=== PATIENT | female | born 1985 | race Caucasian/White ===

== ENCOUNTER 2024-08-26 12:00 | Outpatient (OUT) | payer OTHER, SELFPAY | END 2024-08-26 12:01 | disposition home or self-care (01) | LOC: SLEEP 08-27 12:43 | PROVIDERS: PCP Nurse Practitioner; Visit Provider Nurse Practitioner | DX: G47.33 Obstructive sleep apnea (adult) (pediatric) (principal) | CPT/HCPCS: 95806 ==

== ENCOUNTER 2024-09-09 19:52 | Outpatient (OUT) | payer OTHER, SELFPAY ==
--- OUTSIDE RECORDS SUMMARY | 2024-09-09 20:01 | XMS_ITS | CCD ---
Author Organization [facility] Care Team Providers Care Membership Sales Advisor Name Role Phone DONNY SHIPMAN JUAN Unavailable Unavai lable BENJAMIN SU Unavailable Unavailable BELDON, JJ M Unavailable Unavailable EHRENBERG BUCHNER, JUAN Unavailable Unavai lable BENJAMIN, SU Unavailable Unavailable BELDON, JJ M Unavailable Unavailable EHRDILLON TYLERNER, JUAN Unavailable Unavai lable SIMON REYES Unavailable Unavailable BELDON, JJ M Unavailable Unavailable EHRENBERG BUCHNER, JUAN Unavailable Unavai lable BELDON, JJ M Unavailable Unavailable SIMON REYES Unavailable Unavailable Emma Sharma Primary Care Physician [phone] [facility] [place] Primary Care Unavailable ROGER, DR CLARK Consulting Unavailable ROGER, DR CLARK Attending Unavailable ROGER, DR CLARK Admitting Unavailable Guerda Metcalf MD Primary Care Provider Theo Candelaria Vagesh Unavailable Jj Dyer CNP Unavailable Guerda Metcalf MD Primary Care Provider Eugenie Candelariatan Vagesh Unavailable Manisha ALDANA Jj M Unavailable Guerda Metcalf MD Primary Care Provider Theo Candelaria Vagesh Unavailable Linda Taylor Primary Care Physician Neva Pearson Attending Unavailable Neva Pearson Admitting Unavailable Neva Pearson Admitting Unavailable Neva Pearson Attending Unavailable Guerda Metcalf MD Primary Care Provider PEECHAKARA V, SEENIA Referring Unavailable GUERDA METCALF Primary Care Unavailable PEECHAKARA V, SEENIA Attending Unavailable GUERDA METCALF Primary Care Unavailable PEECHAKARA V, SEENIA Attending Unavailable PEECHAKARA V, SEENIA Referring Unavailable PEECHAKARA V, SEENIA Referring Unavailable GUERDA METCALF Primary Care Unavailable GUERDA METCALF Primary Care Unavailable PEECHAKARA V, SEENIA Attending Unavailable PEECHAKARA V, SEENIA Referring Unavailable GUERDA METCALF Primary Care Unavailable Dyan Ernandez Admitting Unavailabl e Dyan Ernandez Attending Unavailabl e DO Neva Pearson Attending Unavaila ble DO Neva Pearson Admitting Unavaila ble Michel, DO Neva Woodward Admitting Unavaila ble Michel, DO Neva Woodward Attending Unavaila ble Arturo Mon Admitting Unavailable Arturo Mon Attending Unavailable Arturo Mon Referring Unavailable Neva Pearson Attending Unavailable Neva Pearson Admitting Unavailable Michel, DO Neva Woodward Attending Unavaila DO Neva Solares Admitting Unavaila ble Neva Pearson Attending Unavailable Neva Pearson Admitting Unavailable Dyan Ernandez Attending Unavailabl e Dyan Ernandez Admitting Unavailabl e Dyan Ernandez Attending Unavailabl e Linda Taylor Attending Unavailable Linda Taylor Attending Unavailable Linda Taylor Attending Unavailable MD Dyan Ernandez Attending Unavail able MD Dyan Ernandez Admitting Unavail able MD Dyan Ernandez Referring Unavail able DO Neva Pearson Attending Unavaila ble DO Neva Pearson Admitting Unavaila MD Dyan Sierra Attending Unavail able MD Dyan Ernandez Admitting Unavail able DO Neva Pearson Attending Unavaila ble NatDO Neva ma Admitting Unavaila ble Domo Yap Attending Unavailable Linda Taylor Attending Unavailable Linda Taylor Admitting Unavailable Rocco Connors Attending Unavailable MD Dyan Ernandez Attending Unavail able MD Dyan Ernandez Admitting Unavail able DO Neva Pearson Admitting Unavaila ble DO Neva Pearson Attending Unavaila ZELALEM Conrad Referring Unavaila ble Smithn, Arturo D Attending Unavailable Cat Gottlieb Attending Unavailable MD Dyan Ernandez Attending Unavail able Linda Taylor Referring Unavailable MD Dyan Ernandez Attending Unavail able MD Dyan Ernandez Referring Unavail able MD Dyan Ernandez Attending Unavail able ZELALEM SORIA Referring Unavaila ble Kirnus, Arturo D Attending Unavailable Kirnus, Arturo D Admitting Unavailable Kirnus, Arturo D Referring Unavailable Kirnus, Arturo D Attending Unavailable Kirnus, Arturo D Consulting Unavailable Kirnus, Arturo D Consulting Unavailable Kirnus, Arturo D Consulting Unavailable MD Dyan Ernandez Attending Unavail able MD Dyan Ernandez Admitting Unavail able MD Dyan Ernandez Referring Unavail able DO Neva Pearson Attending Unavaila DO Neva Solares Admitting Unavaila ble Dyan Ernandez Attending UnavailDO Anton Naranjo Attending Unavailable [place] BAI, Dario Dorsey Primary Care Provider Unavailable Primary Care Provider UnavailLinda Juarez Primary Care Physician [phone] Cat Gottlieb Attending Unavailable Dyan Ernandez Attending Unavailabl e Neva Pearson. Attending Unavailable Neva Pearson. Admitting Unavailable Neva Pearson. Attending Unavailable Neva Pearson. Admitting Unavailable DO Ricky Hall. Attending Unavailable DO Anton Reinoso Attending Unavailable Al-Marwarner, Dyan Cid Attending Unavailabl e Al-Marrawi, Dyan Yajulio Attending Unavailabl e Al-Marrawi, Dyan Yaser Attending Unavailabl e Cat Gottlieb Attending Unavailable Markus Elkins Attending Unavailable Brittni, Markus Attending Unavailable Kayla Goldstein RN Unavailable Unavailable CHAMPAGNEGHISLAINE GUILLEN Attending Unavailable Al-Marrawi, Dyan Yajulio Attending Unavailabl e Al-Marrawi, Bind Yaser Admitting Unavailabl e Al-Marrawi, Dyan Yaser Attending Unavailabl e CHAMPAGNE, GHISLAINE Admitting Unavailable CHAMPAGNEGHISLAINE GUILLEN Attending Unavailable Al-Marrawi, Dyan Yaser Admitting Unavailabl e Al-Marrawi, Dyan Yaser Attending Unavailabl e Kylah Rivas. Attending Unavailable Kylah Rivas. Attending Unavailable SAY SCHMID Admitting Unavailable KYLAH RIVAS Referring Unavailable COLIN METZ Attending Unavailable PRIORRONDA Attending Unavailable TAL ROBLES Admitting Unavailable TAL ROBLES Attending Unavailable PRIOR, RONDA Rico Attending Unavailable RUBÉN NÚÑEZ Attending Unavailable SHANTELL MI Referring Unavailable RUBÉN NÚÑEZ Attending Unavailable RUBÉN NÚÑEZ Referring Unavailable VONDA CORREA Referring Unavailable VONDA CORREA Attending Unavailable NEVA PEARSON Attending Unavailable JOSSELYN SORIA Attending Unavailable JOSSELYN SORIA Attending Unavailable NEVA PEARSON Attending Unavailable NEVA PEARSON Attending Unavailable NEVA PEARSON Attending Unavailable NEVA PEARSON Attending Unavailable JOSSELYN SORIA Attending Unavailable NEVA PEARSON Attending Unavailable NATNEVA MA Attending Unavailable VONDA CORREA Attending Unavailable IRAIDA BLANCO Referring Unavailable ALLISON VONDA Dago Referring Unavailable JOSSELYN SORIA Attending Unavailable Iraida Blanco Attending Unavailable Iraida Blanco Attending Unavailable Iraida Blanco Attending Unavailable Allergies Allergy Classification Reported Allergen(s) Allergy Type Date of Onset Reaction(s) Facility Nalbuphine (1 source) Nalbuphine; Translations: [nalbuphine] Drug Allergy Hallucinations (finding) [facility] (11 sources) nalbuphine; Translations: [NALBUPHINE HCL] Drug Allergy 8 Swelling, Other: See Comments [facility] (20 sources) Nalbuphine; Translations: [nalbuphine] Drug Allergy 5 Hallucinations (finding), Hallucinations, Swelling [facility] (20 sources) Alcohol; Translations: [Alcohol] Allergy to substance Anaphylaxis (disorder) [facility] Medications Current Medications Medication Drug Class(es) Dates Sig (Normalized) Sig (Original) 0.5 ML tirzepatide 5 MG/ML Auto-Injector [Mounjaro] (5 sources) Start: 08-08-2023 inject 2.5 mg by subcutaneous injection every week Mounjaro 2.5 mg/0.5 mL subcutaneous solution 2.5 mg, SubCutaneous, qWeek, # 4 EA, Refills(s) 1, Pharmacy: [facility]/pharmacy #[id number], 158, cm, 08/08/23 9:06:00 EST, Height/Length Dosing, 98.9, kg, 08/08/23 9:06:00 EST, Weight Dosing Start Date: 08/08/23 Status: Ordered acetaminophen 325 mg oral tablet (13 sources) Start: 05-27-2024 take 3 tablets by mouth every six hours acetaminophen (Tylenol) 325 mg tablet Indications: state ([facility]) Take 3 tablets (975 mg) by mouth every 6 hours. 90 tablet 3 05/27/2024 Active Start: 05-25-2024 take 1 tablet by debby th every six hours 975 mg, oral, Every 6 hours, First dose on 05/25/24 at 0945, , Give with Ibuprofen, If ordered PRN for pain, nurse is permitted to administer this medication for higher pain scores based on patient preference? Yes Start: 05-24-2024 End: 05-24-2024 take 975 mg by mouth once as needed for pain 975 mg, oral, Once, On 05/24/24 at 1430, For 1 dose, If ordered PRN for pain, nurse is permitted to administer this medication for higher pain scores based on patient preference? Yes Start: 04-18-2024 End: 04-18-2024 take 650 mg by mouth once as needed for pain 650 mg, oral, Once, On 04/18/24 at 2000, For 1 dose, If ordered PRN for pain, nurse is permitted to administer this medication for higher pain scores based on patient preference? Yes Start: 04-18-2024 End: 04-18-2024 take 975 mg by mouth once as needed for pain 975 mg, oral, Once, On 04/18/24 at 0745, For 1 dose, If ordered PRN for pain, nurse is permitted to administer this medication for higher pain scores based on patient preference? Yes 4 ml adenosine 3 mg/ml injection (2 sources) Adenosine Receptor Agonist Start: 05-25-2024 take 6 mg intravenously once as needed 6 mg, intravenous, Once as needed, SVT, Starting on Sat05/25/24 at 1350, For 1 dose, Rapid IV bolus over 1-2 seconds at a peripheral IV site as close as possible to trunk. Follow with a rapid 20 mL normal saline IV flush. DO NOT ADMINISTER UNLESS DIRECTLY INSTRUCTED TO BY PROVIDER Start: 05-25-2024 take 12 mg intraveno usly once as needed 12 mg, intravenous, Once as needed, PRN SVT if 6mg dose does not break in 2 minutes, Starting on Sat05/25/24 at 1349, For 1 dose, Rapid IV bolus over 1-2 seconds at a peripheral IV site as close as possible to trunk. Follow with a rapid 20 mL normal saline IV flush. DO NOT ADMINISTER UNLESS DIRECTLY INSTRUCTED TO BY PROVIDER [id number] 200 actuat albuterol 0.09 mg/actuat metered dose inhaler (20 sources) beta2-Adrenergic Agonist take 2 puff(s) by inhalation every four hours albuterol HFA 90 mcg/act inhaler INHALE 2 PUFFS INTO THE LUNGS EVERY 4 HOURS Active Albuterol (Eqv-ProAir HFA) 90 mcg/inh inhalation aerosol (20 sources) Start: 05-12-20 take 2 puff(s) by inhalation every four hours Albuterol (Eqv-ProAir HFA) 90 mcg/inh inhalation aerosol 2 puff(s), Inhalation, q4hr, 18 gm, Refill(s) 0, [facility]/pharmacy #[id number], 158, cm, 05/12/23 11:37:00 EDT, Height/Length Dosing, 101.2, kg, 05/12/23 11:37:00 EDT, Weight Dosing Start Date: 05/12/23 Status: Ordered Start: 06-19-2021 take 1 dose by inhal ation every six hours Albuterol (Eqv-ProAir HFA) 90 mcg/inh inhalation aerosol 2 puff(s), Inhalation, q6hr, 1 EA, Refill(s) 3, [facility]/pharmacy #[id number], 157, cm, 02/15/21 11:09:00 EDT, Height/Length Dosing, 99.8, kg, 02/15/21 11:09:00 EDT, Weight Dosing Start Date: 06/19/21 Status: Ordered aluminum hydroxide 40 mg/ml / magnesium hydroxide 40 mg/ml / simethicone 4 mg/ml oral suspension (1 source) Start: 04-19-2024 take 10 mL by mouth four times daily as needed for gastroesophageal reflux disease 10 mL, oral, 4 times daily PRN, indigestion, heartburn, Starting on 04/19/24 at 210 amLODIPine 5 mg / hydroCHLOROthiazide 12.5 mg / valsartan 160 mg oral tablet (5 sources) Thiazide Diuretic, Dihydropyridine Calcium Channel Jaimie, Angiotensin 2 Receptor Jaimie amLODIPine-Gladys sartan-HCTZ 5-160-12.5 MG tablet 1 (one) time each day at the same time Active amLODIPine 5 mg / valsartan 160 mg oral tablet (16 sources) Dihydropyridine Calcium Channel Jaimie, Angiotensin 2 Receptor Jaimie Start: 06-19-2024 amlodipine-gladys sartan 5 mg-160 mg oral tablet Refill(s) 0 Start Date: 06/19/24 Status: Ordered Start: 06-03-2024 End: 06-03-2025 take 1 tablet by mouth once daily amlodipine-valsartan (Exforge) 5-160 mg tablet Indications: Chronic hypertension Take 1 tablet by mouth once daily. 90 tablet 3 06/03/2024 06/03/2025 Active amoxicillin 875 mg / clavulanate 125 mg oral tablet (2 sources) Penicillin-class Antibacterial Start: 09-14-2022 End: 09-21-2022 take 1 tablet by mouth every twelve hours Augmentin 875 mg oral tablet = 1 tab(s), Oral, q12hr, X 7 day(s), # 14 tab(s), Refills(s) 0, Pharmacy: [facility]/pharmacy #[id number], 157, cm, 09/14/22 13:45:00 EST, Height/Length Dosing, 99.8, kg, 09/14/22 13:45:00 EST, Weight Dosing Start Date: 09/14/22 Stop Date: 09/21/22 Status: Ordered Start: 01-11-2022 End: 01-18-2022 Augmentin 875 mg-125 mg Tab 1 tab(s), Oral, q12hr for 7 day(s), 14 tab(s), Refill(s) 0, [facility]/pharmacy #[id number], 157, cm, 11/30/21 11:47:00 EDT, Height/Length Dosing, 101.1, kg, 11/30/21 11:47:00 EDT, Weight Dosing Start Date: 01/11/22 Stop Date: 01/18/22 Status: Ordered 24 hr amphetamine aspartate 2.5 mg / amphetamine sulfate 2.5 mg / dextroamphetamine saccharate 2.5 mg / dextroamphetamine sulfate 2.5 mg extended release oral capsule (5 sources) Central Nervous System Stimulant Start: 07-08-2024 End: 08-31-2024 Adderall XR 10 MG 24 hr capsule 1 (one) time each day at the same time 07/08/2024 08/31/2024 Discontinued (Therapy completed) benzocaine 200 mg/ml / menthol 5 mg/ml topical spray (1 source) Standardized Chemical Allergen Start: 05-25-2024 benzonatate 100 mg oral capsule (1 source) Non-narcotic Antitussive Start: 04-19-2024 take 100 mg by mouth three times daily as needed for cough 100 mg, oral, 3 times daily PRN, cough, Starting on 04/19/24 at 2126, Do not crush or chew. bisacodyl 10 mg rectal suppository (2 sources) Stimulant Laxative Start: 05-25-2024 take 10 mg rectal route every twenty-four hours as needed Start: 04-17-2024 take 10 mg rectal route every twenty-four hours as needed Brompheniramine / Codeine (2 sources) Opioid Agonist Start: 05-29-2023 take 5 mL by mouth every four hours for cough and congestion brompheniramine-codeine 2 mg-10 mg/5 mL oral syrup 5 mL, Oral, q4hr for cough and congestion, 100 mL, Refill(s) 0 Start Date: 05/29/23 Status: Ordered brompheniramine maleate 0.4 mg/ml / dextromethorphan hydrobromide 2 mg/ml / pseudoephedrine hydrochloride 6 mg/ml oral solution (3 sources) alpha-Adrenergic Agonist, Uncompetitive Y-qgiwcq-D-aspar gruber Receptor Antagonist, Sigma-1 Agonist Start: 05-23-2022 take 10 mL by mouth four times daily for cough and congestion Bromfed DM oral syrup 10 mL, Oral, QID for cough and congestion, 200 mL, Refill(s) 0, [facility]/pharmacy #[id number], 157, cm, 11/30/21 11:47:00 EDT, Height/Length Dosing, 101.1, kg, 11/30/21 11:47:00 EDT, Weight Dosing Start Date: 05/23/22 Status: Ordered Start: 01-11-2022 take 10 mL by mouth four times daily for cough and congestion Bromfed DM oral syrup 10 mL, Oral, QID for cough and congestion, 200 mL, Refill(s) 0, [facility]/pharmacy #[id number], 157, cm, 11/30/21 11:47:00 EDT, Height/Length Dosing, 101.1, kg, 11/30/21 11:47:00 EDT, Weight Dosing Start Date: 01/11/22 Status: Ordered calcium carbonate 500 mg chewable tablet (1 source) Start: 05-26-2024 500 mg, oral, 2 times daily, First dose on Sat05/26/24 at 1830, Each 500 mg calcium carbonate tablet = 200 mg of elemental calcium. calcium chloride 0.0014 meq/ml / potassium chloride 0.004 meq/ml / sodium chloride 0.103 meq/ml / sodium lactate 0.028 meq/ml injectable solution (1 source) Start: 09-28-2024 take 125 mL intravenously every hour 125 mL/hr, intravenous, Continuous, Starting on 04/18/24 at 0015 1 ml carboprost 0.25 mg/ml injection (2 sources) Prostaglandin Analog Start: 05-24-2024 cariprazine 1.5 mg oral capsule (6 sources) Atypical Antipsychotic Start: 05-12-2023 Vraylar 1.5 mg oral capsule Refills(s) 0 Start Date: 05/12/23 Status: Ordered cephalexin 500 mg oral capsule (3 sources) Cephalosporin Antibacterial Start: 06-28-2024 End: 07-05-2024 take 1 capsule by mouth every six hours Keflex 500 mg Cap 500 mg = 1 cap(s), Oral, q6hr, X 7 day(s), # 28 cap(s), Refills(s) 0, Pharmacy: [facility]/pharmacy #[id number], 157, cm, 06/28/24 11:04:00 EST, Height/Length Dosing, 99.5, kg, 06/28/24 11:04:00 EST, Weight Dosing Start Date: 06/28/24 Stop Date: 07/05/24 Status: Ordered Start: 05-30-2024 End: 06-09-2024 take 1 capsule by mouth four times daily Cephalexin 500 mg capsule Active 500 MG PO Four times daily June 03, 2024 12:00am cholecalciferol 1.25 mg oral capsule (20 sources) Vitamin D Start: 05-30-2023 cholecalcifero l 50,000 intl units oral capsule 1,250 mcg = 1 cap(s), Oral, q7day, # 12 cap(s), Refills(s) 1, Pharmacy: [facility]/pharmacy #[id number], 158, cm, 05/29/23 8:45:00 EST, Height/Length Dosing, 100.2, kg, 05/29/23 8:45:00 EST, Weight Dosing Start Date: 05/30/23 Status: Ordered Start: 05-30-2023 cholecalcifero l 50,000 intl units oral capsule 1,250 mcg = 1 cap(s), Oral, q7day, # 12 cap(s), Refills(s) 1, Pharmacy: [facility]/pharmacy #[id number], 158, cm, 05/29/23 8:45:00 EST, Height/Length Dosing, 100.2, kg, 05/29/23 8:45:00 EST, Weight Dosing Start Date: 05/30/23 Status: Ordered diphenhydrAMINE (BENADryl) injection 25 mg (1 source) Start: 05-25-2024 take 25 mg intravenously every six hours as needed diphenhydrAMINE (BENADryl) injection 25 mg doxycycline hyclate 100 mg oral capsule (7 sources) Tetracycline-cl ass Drug Start: 05-29-2023 take 1 capsule by mouth twice daily doxycycline hyclate 100 mg Cap 100 mg = 1 cap(s), Oral, BID, # 20 cap(s), Refills(s) 0, Pharmacy: [facility]/pharmacy #[id number], 158, cm, 05/29/23 8:45:00 EST, Height/Length Dosing, 100.2, kg, 05/29/23 8:45:00 EST, Weight Dosing Start Date: 05/29/23 Status: Ordered doxylamine succinate 25 mg oral tablet (5 sources) doxylamine (Unis om, doxylamine,) 25 mg tablet Take 1 tablet (25 mg) by mouth as needed at bedtime for sleep. Active 0.6 ml enoxaparin sodium 100 mg/ml prefilled syringe (1 source) Low Molecular Weight Heparin Start: 05-26-2024 inject 60 mg by subcutaneous injection every twenty-four hours 60 mg, subcutaneous, Every 24 hours, First dose on Sat05/26/24 at 0930, , Wait 24 hours after neuraxial catheter placement AND 4 hours after neuraxial catheter removal. ethinyl estradiol 0.035 mg / norgestimate 0.25 mg oral tablet (9 sources) Progestin, Estrogen Start: 07-07-2024 End: 07-07-2025 take 1 tablet by mouth once daily norgestimate-ethiny l estradiol (Sprintec 28) 0.25-35 MG-MCG tablet Indications: Oral contraception initiation Take 1 tablet by mouth Daily 28 tablet 5 07/07/2024 08/31/2024 Discontinued (Therapy completed) famotidine 20 mg oral tablet (2 sources) Histamine-2 Receptor Antagonist Start: 05-26-2024 take 20 mg by mouth twice daily 20 mg, oral, 2 times daily, First dose on Sat05/26/24 at 1830 Start: 05-25-2024 End: 05-25-2024 20 mg, intravenous, Administ er over 2 Minutes, Once, On 05/25/24 at 0300, For 1 dose ferrous sulfate 325 mg delayed release oral tablet (20 sources) Start: 01-21-2024 take 1 tablet by mouth once in the morning ferrous sulfate 325 (65 Fe) MG EC tablet Indications: Anemia during in second trimester , Antepartum anemia Take 1 tablet (325 mg) by mouth in the morning and 1 tablet (325 mg) before bedtime. Do not crush, chew, or split.. 60 tablet 5 01/21/2024 Active take 1 tablet by mouth once vasiliy y ferrous sulfate, 325 mg ferrous sulfate, tablet Take 1 tablet (325 mg) by mouth once daily. Active fluticasone propionate 0.05 mg/actuat metered dose nasal spray (20 sources) Corticosteroid Start: 11-30-2021 fluticasone 0. 05 mg/inh Nasal [place] 1 spray(s), Nasal, Daily Allergy symptoms, Refill(s) 0 Start Date: 11/30/21 Status: Ordered take 1 spray(s) nasal route once daily fluticasone (Flonase) 50 MCG/ACT nasal spray SPRAY 1 SPRAY INTO EACH NOSTRIL EVERY DAY Active fluticasone 0.05 mg/inh Nasal [place] (20 sources) Start: 11-30-2021 fluticasone 0. 05 mg/inh Nasal [place] 1 spray(s), Nasal, Daily Allergy symptoms, Refill(s) 0 Start Date: 11/30/21 Status: Ordered 1 ml hydrALAZINE hydrochloride 20 mg/ml injection (3 sources) Arteriolar Vasodilator Start: 05-24-2024 Start: 04-17-2024 ibuprofen 600 mg oral tablet (13 sources) Nonsteroidal Anti-inflammatory Drug Start: 05-25-2024 take 1 tablet by mouth every six hours ibuprofen 600 mg tablet Indications: state ([facility]) Take 1 tablet (600 mg) by mouth every 6 hours. 90 tablet 3 05/27/2024 Active Start: 11-18-2019 End: 02-10-2024 take 1 tablet by mouth three times daily ibuprofen (MOTRIN) 600 mg tablet Take by mouth. TAKE 1 TABLET BY MOUTH 3 TIMES A DAY FOR 10 DAYS 0 11/18/2019 02/10/2024 Discontinued Comment on above: Take by mouth. TAKE 1 TABLET BY MOUTH 3 TIMES A DAY FOR 10 DAYS labetalol hydrochloride 100 mg oral tablet (20 sources) beta-Adrenergic Jaimie Start: 06-03-2024 take 2 tablets by mouth twice daily Labetalol 100 mg tablet Active 200 MG PO Twice daily June 03, 2024 12:00am Start: 05-24-2024 Start: 05-19-2024 End: 05-19-2025 labetalol 100 mg Tab Refills (s) 0 Start Date: 06/19/24 Status: Ordered Start: 04-17-2024 take 1 tablet by debby th in the morning labetalol (Normodyne) 200 MG tablet Take 200 mg by mouth in the morning and 200 mg before bedtime. Active lamoTRIgine 150 mg oral tablet (20 sources) Mood Stabilizer, Anti-epileptic Agent Start: 06-03-2024 take 1 tablet by mouth twice daily Lamotrigine (Lamictal) 150 mg tablet Active 150 MG PO Twice daily June 03, 2024 12:00am Start: 05-24-2024 take 300 mg by mouth once vasiliy y 300 mg, oral, Nightly, First dose on 05/24/24 at 2100 Start: 04-18-2024 take 300 mg by mouth once vasiliy y 300 mg, oral, Nightly, First dose (after last modification) on 04/18/24 at 2100 Start: 12-24-2019 take 2 tablets by mo uth once daily lamotrigine 150 mg Tab 300 mg = 2 tab(s), Oral, Daily, # 60 tab(s), Refills(s) 5, Pharmacy: [facility]/pharmacy #[id number], 157, cm, 03/06/20 16:46:00 EDT, Height/Length Dosing, 95.2, kg, 03/06/20 16:46:00 EDT, Weight Dosing Start Date: 06/21/20 Status: Ordered Start: 08-21-2016 lamoTRIgine (L aMICtal) 150 MG tablet 1 (one) time each day at the same time 08/21/2016 Active Comment on above: Take 300 mg by mouth once daily. lanolin 1000 mg/ml topical cream (1 source) Start: 05-25-2024 lidocaine 0.04 mg/mg medicat ed patch (3 sources) Antiarrhythmic, Amide Local Anesthetic Start: 05-25-2024 Start: 05-24-2024 Start: 04-17-2024 loperamide hydrochloride 2 mg oral capsule (2 sources) Opioid Agonist Start: 05-24-2024 lurasidone hydrochloride 40 mg oral tablet (20 sources) Atypical Antipsychotic Start: 07-08-2024 take 1 tablet by mouth once daily at mealtime lurasidone (Latuda) 40 MG tablet TAKE 1 TABLET BY MOUTH EVERY DAY IN THE EVENING WITH FOOD 07/08/2024 Active Start: 05-29-2023 Latuda 120 mg oral tablet Managed by Nury Zaman, Refills(s) 0 Start Date: 05/29/23 Status: Ordered Start: 01-05-2020 End: 02-10-2024 LATUDA 80 mg tablet Take 80 mg by mouth. 0 01/05/2020 02/10/2024 Discontinued Comment on above: Take 80 mg by mouth. M- Plus oral tablet (20 sources) Start: 03-30-2024 M-Jacinta Plus oral tablet Refill(s) 0 Start Date: 03/30/24 Status: Ordered magnesium hydroxide 80 mg/ml oral suspension (2 sources) Start: 05-25-2024 Start: 04-17-2024 magnesium oxide 400 mg oral tablet (1 source) Start: 05-27-2024 take 400 mg by mouth once daily 400 mg, oral, Daily, First dose on Sat05/27/24 at 1930 24 hr metFORMIN hydrochloride 500 mg extended release oral tablet (20 sources) Biguanide Start: 04-18-2024 take 1000 mg by mouth once daily at dinner 1,000 mg, oral, Daily with evening meal, First dose on Sat04/18/24 at 1700, Do not crush, chew, or split. Start: 03-23-2024 take 1 tablet by debby th every twelve hours metFORMIN (Glucophage) 1,000 mg tablet Take 1 tablet (1,000 mg) by mouth every 12 hours. 03/23/2024 Active Start: 12-06-2019 End: 03-23-2024 take 1 tablet by mouth twice daily metformin 1000 mg Tab 1,000 mg = 1 tab(s), Oral, BID, # 180 tab(s), Refills(s) 3, Pharmacy: [facility]/pharmacy #[id number], 157, cm, 03/06/20 16:46:00 EDT, Height/Length Dosing, 85.6, kg, 08/10/20 10:41:00 EST, Weight Dosing Start Date: 08/10/20 Status: Ordered Start: 08-21-2017 metFORMIN (Glu cophage) 1000 MG tablet every 12 (twelve) hours 08/21/2017 Active End: 05-19-2024 take 1 tablet by mouth once daily metFORMIN, MOD, (Glumetza) 1,000 mg 24 hr tablet Take 1 tablet (1,000 mg) by mouth once daily. Do not crush, chew, or split. 05/19/2024 Discontinued (Dose adjustment) Comment on above: Take 1,000 mg by debby th twice daily. Take 1 tablet by debby th twice daily. 1 ml methylergonovine maleat e 0.2 mg/ml injection (2 sources) Ergot Derivative Start: 05-24-2024 methylPREDNISolone 4 mg oral tablet (1 source) Corticosteroid Start: 01-11-2022 End: 01-17-2022 Medrol 4 mg Tab = 1 packet(s), Oral, As Directed, as directed on package labeling, X 6 day(s), # 21 tab(s), Refills(s) 0, Pharmacy: [facility]/pharmacy #[id number], 157, cm, 11/30/21 11:47:00 EDT, Height/Length Dosing, 101.1, kg, 11/30/21 11:47:00 EDT, Weight Dosing Start Date: 01/11/22 Stop Date: 01/17/22 Status: Ordered 24 hr metoprolol succinate 5 0 mg extended release oral tablet (20 sources) beta-Adrenergic Jaimie Start: 05-11-2024 metoprolol succinate 50 mg ER Tab BID, Refills(s) 0 Start Date: 05/11/24 Status: Ordered Start: 05-05-2024 End: 07-07-2024 take 2 tablets by mouth every twelve hours metoprolol tartrate (Lopressor) 25 mg tablet Indications: SVT (supraventricular tachycardia) (CMS-HCC) Take 2 tablets (50 mg) by mouth every 12 hours. 30 tablet 3 05/05/2024 05/19/2024 Discontinued (Therapy completed) Start: 04-19-2024 End: 06-19-2024 take 1 tablet by mouth every twelve hours metoprolol tartrate (Lopressor) 25 mg tablet Indications: SVT (supraventricular tachycardia) ([facility]-H[facility]) Take 1 tablet (25 mg) by mouth every 12 hours. 30 tablet 3 04/20/2024 06/19/2024 Active Start: 04-18-2024 End: 04-18-2024 take 25 mg by mouth every twenty-four hours 25 mg, oral, Every 24 hours, First dose (after last modification) on 04/18/24 at 0600, Do not crush or chew. miSOPROStol 0.2 mg oral tablet (2 sources) Prostaglandin E1 Analog Start: 05-24-2024 naproxen 500 mg oral tablet (1 source) Nonsteroidal Anti-inflammatory Drug Start: 06-28-2024 take 1 tablet by mouth twice daily as needed for pain Naprosyn 500 mg Tab 500 mg = 1 tab(s), Oral, BID, PRN for pain, # 20 tab(s), Refills(s) 0, Pharmacy: [facility]/pharmacy #[id number], 157, cm, 06/28/24 11:04:00 EST, Height/Length Dosing, 99.5, kg, 06/28/24 11:04:00 EST, Weight Dosing Start Date: 06/28/24 Status: Ordered NIFEdipine 10 mg oral capsule (3 sources) Dihydropyridine Calcium Channel Jaimie Start: 05-24-2024 Start: 04-17-2024 omeprazole 20 mg delayed release oral capsule (20 sources) Proton Pump Inhibitor Start: 07-13-2024 take 1 capsule by mouth once daily omeprazole (PriLOSEC) [address] capsule Indications: related condition, second trimester , Gastroesophageal reflux disease, unspecified whether esophagitis present TAKE 1 CAPSULE BY MOUTH DAILY 90 capsule 1 07/13/2024 Active Start: 06-03-2024 take 1 capsule by mo [facility] once daily Omeprazole 20 mg capsule,delayed release(DR/EC) Active 20 MG PO Daily June 03, 2024 12:00am Start: 02-24-2024 End: 07-13-2024 take 1 capsule by mouth once daily Omeprazole Magnesium (GNP Omeprazole) 20.6 (20 Base) MG capsule delayed-release Indications: related condition, second trimester , Gastroesophageal reflux disease, unspecified whether esophagitis present Take 20.6 mg by mouth Daily 30 capsule 5 02/24/2024 07/13/2024 Discontinued take 1 capsule by mo [facility] once daily before mealtime omeprazole (PriLOSEC) [address] capsule Take 1 capsule (20 mg) by mouth once daily in the morning. Take before meals. Do not crush or chew. Active Ondansetron (20 sources) Serotonin-3 Receptor Antagonist Start: 05-25-2024 take 1 tablet by mouth every six hours as needed ondansetron (Zofran) tablet 4 mg Start: 05-24-2024 take 1 tablet by debby th every six hours as needed ondansetron (Zofran) tablet 4 mg Start: 04-17-2024 take 1 tablet by debby th every six hours as needed ondansetron (Zofran) tablet 4 mg Start: 11-30-2021 take 1 tablet by debby th every eight hours as needed for nausea ondansetron 4 mg Tab 4 mg = 1 tab(s), Oral, q8hr, PRN Nausea/Vomiting, Refills(s) 0 Start Date: 11/30/21 Status: Ordered Start: 11-17-2019 End: 02-10-2024 take 1 tablet by mouth every six hours as needed ondansetron (ZOFRAN) 4 mg tablet Take 4 mg by mouth every 6 hours as needed. For Nausea 0 11/17/2019 02/10/2024 Discontinued Comment on above: Take 4 mg by mouth e very 6 hours as needed. For Nausea 1 ml oxytocin 10 unt/ml injection (2 sources) Oxytocic Start: 05-25-2024 oxytocin (Pitocin) bolus fro m bag (4 sources) Start: 05-25-2024 Start: 05-24-2024 Start: 05-24-2024 End: 05-25-2024 600 sen-units/min (600 mL/ hr), intravenous, Administer over 30 Minutes, Once as needed, hemorrhage, Starting on 05/24/24 at 1253, For 1 dose, Post-Delivery, Conditional order. 600 milliunits/min x 30 min, then 60 milliunits/min for the remainder of the bag. Consult Provider prior to administration. oxytocin (Pitocin) infusion in sodium chloride 0.9% 30 units/500 mL (3 sources) Start: 05-25-2024 Start: 05-24-2024 End: 05-25-2024 2-30 sen-units/min (2-30 m L/hr), intravenous, Continuous, Starting on Sat05/24/24 at 1645, Initial IV Rate: 2 milliunits/min Titration Directions: Increase infusion rate every 30 min by 2 milliunits/min per Oxytocin Administration guideline and algorithm. Titrate to maintain adequate contraction pattern with labor progress. Titration dosing schedule: 60 mU/ mL at 1 mL/hr = 60 mU/60 min = 1 mU/min MAX DOSE Rate = 30 milliunits/min , Titration Goal: Titrate, Target Parameter: Checklist criteria and clinical situation, Initial dose: 2 milliunits/min, Titration Dose: 2 milliunits/min, Titration Frequency: Every 30 minutes Start: 05-24-2024 End: 05-25-2024 60 sen-units/min (60 mL/hr ), intravenous, Once as needed, management of 3rd stage of labor, Starting on [place] 05/24/24 at 1253, For 1 dose, Post-Delivery, Titration Goal: Do Not Titrate perflutren lipid microspheres (Definity) injection 0.5-10 mL of dilution (1 source) Start: 04-18-2024 phentermine hydrochloride 37.5 mg oral tablet (3 sources) Sympathomimetic Amine Anorectic Start: 11-21-2022 End: 02-21-2023 Phentermine HCl (ADIPEX-P) 37.5 mg tablet Indications: Class 3 severe obesity due to excess calories without serious comorbidity with body mass index (BMI) of 40.0 to 44.9 in adult (HCC) Take half tablet daily for 4 weeks and then one full tablet daily. Stop is or planning to get 90 tablet 1 11/21/2022 02/21/2023 Active Comment on above: Take half tablet tin ly for 4 weeks and then one full tablet daily. Stop is or planning to get Pnv,Calcium 59-Lcly-Twlpy Acid (M-Jacinta Plus) 27 mg iron- 1 mg tablet (1 source) Start: 06-03-2024 take 1 tablet by mouth once daily Pnv,Calcium 08-Nlyw-Wdniv Acid (M- Plus) 27 mg iron- 1 mg tablet Active 1 TAB PO Daily June 03, 2024 12:00am Jwdmlcis-Td-Kcm-Fe- FA (P-D PLUS) ORAL Tab (9 sources) take 1 tablet by mouth once Wsoegczr-Br-Nyo-F e-FA (P-D PLUS) ORAL Tab Take 1 tablet by mouth. Active take 1 tablet by mouth once Pren atal Mqcsymxz-Xc-Maa-Fe-FA (P-D JACINTA PLUS) ORAL Tab Take 1 tablet by mouth. 0 Active Comment on above: Take 1 tablet by debby th. no115/iron/folic acid ( 19 ORAL) (5 sources) take 1 tablet by mouth once daily no115/iron/folic acid ( 19 ORAL) Take 1 tablet by mouth once daily. Active Vit-Fe Fumarate-FA ( Plus Vitamin/Mineral) 27-1 MG tablet (20 sources) Start: 02-24-2024 take 1 tablet by mouth once daily Vit-Fe Fumarate-FA ( Plus Vitamin/Mineral) 27-1 MG tablet Indications: related condition, second trimester Take 1 tablet by mouth Daily 30 tablet 12 02/24/2024 Active vitamin (iron-folic) tablet 1 tablet (1 source) Start: 04-18-2024 1 tablet, oral, Daily, First dose on Sat04/18/24 at 0900, provides 0.8 mg folic acid psyllium 3400 mg powder for oral suspension (2 sources) Start: 05-25-2024 Start: 04-17-2024 1 packet, oral , Daily PRN, any constipation, Starting on Sat04/17/24 at 2349, Give with at least 8 ounces of water or juice simethicone 80 mg chewable tablet (2 sources) Start: 05-25-2024 take 80 mg by mouth four times daily as needed 80 mg, oral, 4 times daily PRN, flatulence, Starting on Sat05/25/24 at 0928, Start: 04-17-2024 take 80 mg by mouth four times daily as needed 80 mg, oral, 4 times daily PRN, flatulence, Starting on Sat04/17/24 at 2349 Slow Iron (20 sources) Start: 03-30-2024 Slow Iron Refills(s) 0 Start Date: 03/30/24 Status: Ordered tiZANidine 4 mg oral tablet (16 sources) Central alpha-2 Adrenergic Agonist Start: 11-30-2021 take 1 tablet by mouth at bedtime tiZANidine 4 mg Tab 4 mg = 1 tab(s), Oral, Bedtime, Refills(s) 0, Insomnia Start Date: 11/30/21 Status: Ordered 10 ml tranexamic acid 100 mg/ml injection (1 source) Antifibrinolytic Agent Start: 05-25-2024 End: 05-28-2024 traZODone hydrochloride 100 mg oral tablet (20 sources) Serotonin Reuptake Inhibitor Start: 06-10-2020 take 1 tablet by mouth once daily at bedtime as needed traZODone (DESYREL) 100 mg tablet Take 1 tablet by mouth daily at bedtime. As needed 30 tablet 08/08/2021 Active Comment on above: Take 1 tablet by debby th daily at bedtime. As needed witch bailey 500 mg/ml medicated pad (2 sources) Start: 05-25-2024 Start: 04-19-2024 1 each, Topica l, 4 times daily PRN, hemorrhoids, Starting on 04/19/24 at 1115, Apply to: affected area Zofran ODT 4 mg Tab-Dis (1 source) Start: 06-28-2024 take 1 tablet by mouth every eight hours as needed for nausea Zofran ODT 4 mg Tab-Dis 4 mg = 1 tab(s), Oral, q8hr, PRN Nausea/Vomiting, # 12 tab(s), Refills(s) 0, Pharmacy: [facility]/pharmacy #[id number], 157, cm, 06/28/24 11:04:00 EST, Height/Length Dosing, 99.5, kg, 06/28/24 11:04:00 EST, Weight Dosing Start Date: 06/28/24 Status: Ordered Completed/Discontinued Medications Medication Drug Class(es) Dates Sig (Normalized) Sig (Original) ALPRAZolam 0.5 mg oral tablet (4 sources) Benzodiazepine Start: 12-21-2019 take 1-2 tablets by mouth at bedtime as needed for anxiety ALPRAZolam (XANAX) 0.5 mg tablet TAKE 1 TO 2 TABLETS BY MOUTH AT BEDTIME NEEDED FOR ANXIETY 0 12/21/2019 Active Comment on above: TAKE 1 TO 2 TABLETS BY MOUTH AT BEDTIME NEEDED FOR ANXIETY ascorbic acid 250 mg / iron carbonyl 100 mg oral tablet (16 sources) Vitamin C Start: 09-02-2023 End: 07-07-2024 Iron-Vitamin C (Iron 100/C) 100-250 MG tablet 09/02/2023 07/07/2024 Discontinued (Therapy completed) betamethasone 3 mg/ml / betamethasone acetate 3 mg/ml injectable suspension (12 sources) Corticosteroid Start: 08-31-2024 End: 08-31-2024 betamethasone acetate-betamethas one sodium phosphate (Celestone) injection 6 mg Start: 08-31-2024 End: 08-31-2024 6 mg, Intra-articular, Once PRN Procedure, Starting on Sat08/31/24 at 0947, For 1 dose Start: 07-29-2024 End: 07-29-2024 betamethasone acetate-betame thasone sodium phosphate (Celestone) injection 3 mg Start: 07-29-2024 End: 07-29-2024 3 mg, Intra-articular, Once PRN Procedure, Starting on Sat07/29/24 at 1348, For 1 dose cyclobenzaprine hydrochloride 10 mg oral tablet (4 sources) Muscle Relaxant Start: 05-25-2024 End: 05-25-2024 take 10 mg by mouth once 10 mg, oral, Once, On 05/25/24 at 0015, For 1 dose Start: 04-18-2024 End: 04-18-2024 take 10 mg by mouth once 10 mg, oral, Once, On Sat at 2000, For 1 dose diphenhydrAMINE hydrochloride 25 mg oral capsule (6 sources) Histamine-1 Receptor Antagonist Start: 05-25-2024 End: 05-25-2024 take 25 mg by mouth once 25 mg, oral, Once, On 05/25/24 at 0015, For 1 dose Start: 05-24-2024 End: 05-24-2024 25 mg, intravenous, Once, On 05/24/24 at 1430, For 1 dose, If giving IV push, max rate of 25 mg/min. Start: 04-19-2024 take 1 capsule by [facility] every six hours as needed 25 mg, oral, Every 6 hours PRN, sleep, Starting on 04/19/24 at 2115 Start: 04-18-2024 End: 04-18-2024 take 25 mg by mouth once 25 mg, oral, Once, On Sat at 2000, For 1 dose docusate sodium 100 mg oral capsule (16 sources) Start: 01-21-2024 End: 07-07-2024 take 1 capsule by mouth once at bedtime docusate sodium (Colace) 100 MG capsule Indications: Anemia during in second trimester , Antepartum anemia Take 1 capsule (100 mg) by mouth at bedtime 30 capsule 12 01/21/2024 07/07/2024 Discontinued (Therapy completed) ergocalciferol 1.25 mg oral capsule (4 sources) Provitamin D2 Compound Start: 12-20-2019 take 1 capsule by mouth every week ergocalciferol 50,000 unit capsule (VITAMIN D2, DRISDOL) Take 1 capsule by mouth one time a week. 0 12/20/2019 Active Comment on above: Take 1 capsule by [facility] one time a week. 1 ml fentaNYL 0.05 mg/ml injection (1 source) Opioid Agonist Start: 05-24-2024 End: 05-24-2024 50 mcg, intravenous, Once, On 05/24/24 at 1645, For 1 dose iron sucrose (Venofer) 300 mg in sodium chloride 0.9% 282 mL IV (1 source) Start: 04-19-2024 End: 04-19-2024 300 mg, intravenous, at 188 mL/hr, Administer over 90 Minutes, Once, On 04/19/24 at 1530, For 1 dose ketoconazole 20 mg/ml medicated shampoo (4 sources) Azole Antifungal Start: 03-10-2020 ketoconazole (NIZORAL) 2 % shampoo Indications: Seborrheic dermatitis Lather into scalp for 5 minutes then rinse. Use TIW. 120 mL 5 03/10/2020 Active Comment on above: Lather into scalp fo r 5 minutes then rinse. Use TIW. levonorgestrel 0.518398 mg/hr intrauterine system (5 sources) Progestin, Progestin-containi ng Intrauterine Device Start: 08-06-2024 End: 08-06-2024 Levonorgestrel intrauterine device 52 mL Start: 08-06-2024 End: 08-06-2024 52 mL, Intrauterine, Once CO N Procedure, Starting on Cristine 08/06/24 at 1320, For 1 dose Start: 07-30-2019 Liletta 52 mg intrauteral device 52 mg = 1 EA, IntraUteral, As Directed, Refills(s) 0, control/menstrual regulation Start Date: 07/30/19 Status: Ordered levothyroxine sodium 0.137 mg oral tablet (20 sources) l-Thyroxine Start: 04-19-2024 End: 04-19-2024 take 274 ug by mouth once daily 274 mcg, oral, Nightly, First dose on 04/19/24 at 2100, For 1 dose Start: 04-18-2024 End: 04-18-2024 take 137 ug by mouth once daily 137 mcg, oral, Nightly , First dose on 04/18/24 at 2100, For 1 dose Start: 12-07-2021 take 1 tablet by debby once daily Levoxyl 137 mcg (0.137 mg) oral tablet 137 mcg = 1 tab(s), Oral, Daily, Refills(s) 0, Thyroid Start Date: 12/07/21 Status: Ordered Start: 09-19-2021 End: 06-16-2024 take 1 tablet by mouth once daily Levoxyl 137 MCG tablet Take 137 mcg by mouth Daily 09/23/2023 Active take 1 capsule by [facility] once daily in the morning levothyroxine (Tirosint) 137 mcg capsule Take 1 capsule (137 mcg) by mouth early in the morning.. Take on an empty stomach at the same time each day, either 30 to 60 minutes prior to breakfast Active Comment on above: [facility] Liletta 52 mg intrauteral device (1 source) Start: 07-30-2019 Liletta 52 mg intrauteral device 52 mg = 1 EA, IntraUteral, As Directed, Refills(s) 0, control/menstrual regulation Start Date: 07/30/19 Status: Ordered 100 ml magnesium sulfate 40 mg/ml injection (2 sources) Start: 05-27-2024 End: 05-27-2024 4 g, intravenous, at 25 mL/hr, Administer over 4 Hours, Once, On 05/27/24 at 1330, For 1 dose Start: 04-18-2024 End: 04-18-2024 4 g, intravenous, at 25 mL/h r, Administer over 4 Hours, Once, On 04/18/24 at 1415, For 1 dose 2 ml metoclopramide 5 mg/ml injection (5 sources) Dopamine-2 Receptor Antagonist Start: 05-24-2024 End: 05-24-2024 10 mg, intravenous, Once, On 05/24/24 at 1430, For 1 dose Start: 04-18-2024 End: 04-18-2024 take 10 mg by mouth once 10 mg, oral, Once, On Sat at 2000, For 1 dose Start: 04-17-2024 take 1 tablet by debby th every six hours as needed metoclopramide (Reglan) tablet 10 mg nirmatrelvir-ritonavir (Paxlovid) 300 mg (150 mg x 2)-100 mg tablet therapy pack (1 source) Start: 05-21-2024 End: 05-27-2024 take 3 tablets by mouth twice daily nirmatrelvir-ritonavir (Paxlovid) 300 mg (150 mg x 2)-100 mg tablet therapy pack Indications: COVID-19 affecting in third trimester ([facility]) Take 3 tablets by mouth 2 times a day for 5 days. Follow the instructions on the package 30 tablet 05/21/2024 05/27/2024 Discontinued (Stop Taking at Discharge) oral hydration solution 250 mL (1 source) Start: 05-24-2024 End: 05-25-2024 take 250 mL by mouth every four hours 250 mL, oral, Every 4 hours scheduled, First dose on 05/24/24 at 1400, Pre-Delivery, Which fluid should be used for oral hydration? Water polyethylene glycol 3350 62340 mg powder for oral solution (5 sources) Osmotic Laxative Start: 05-28-2024 End: 06-16-2024 polyethylene glycol (Glycolax, Miralax) 17 gram/dose powder Indications: state ([facility]) DISSOLVE 17 GRAMS IN 8 OZ OF FLUID LIQUID DRINK DAILY DIRECTED 510 g 3 05/28/2024 06/16/2024 Discontinued (Therapy completed) Start: 05-25-2024 polyethylene g lycol (Glycolax, Miralax) 17 gram packet Indications: state ([facility]) Take 17 g by mouth once daily. 60 each 3 05/27/2024 Active Start: 04-17-2024 17 g, oral, Da adama, First dose on 04/18/24 at 0900, Bowel Regimen - for prevention of constipation. microencapsulated potassium chloride 20 meq extended release oral tablet (1 source) Start: 04-18-2024 End: 04-18-2024 20 mEq, oral, Once, On 04/18/24 at 1415, For 1 dose, Best given with food and plenty of water to minimize gastric irritation. Do not crush or chew. predniSONE 10 mg oral tablet (7 sources) Start: 05-29-2023 predniSONE 10 mg Tab 10 mg = 1 tab(s), Oral, As Directed, Take 4 tabs for 3 days, 3 tabs for 3 days, 2 tabs for 3 days, 1 tab for 3 days., # 30 tab(s), Refills(s) 0, Pharmacy: [facility]/pharmacy #[id number], 158, cm, 05/29/23 8:45:00 EST, Height/Length Dosing, 100.2, kg, 05/29/23 8:45:00 EST, Weight Dosing Start Date: 05/29/23 Status: Ordered spironolactone 50 mg oral tablet (8 sources) Aldosterone Antagonist Start: 07-26-2020 take 1 tablet by mouth twice daily spironolactone (ALDACTONE) 50 mg tablet Take 1 tablet by mouth twice daily. 60 tablet 0 07/26/2020 Active Comment on above: Take 1 tablet by [facility] twice daily. tirzepatide, weight loss (ZEPBOUND) 2.5 mg/0.5 mL pen injector (2 sources) Start: 09-24-2023 End: 02-10-2024 tirzepatide, weight loss (ZEPBOUND) 2.5 mg/0.5 mL pen injector Indications: Class 2 obesity due to excess calories with body mass index (BMI) of 38.0 to 38.9 in adult, unspecified whether serious comorbidity present Inject 2.5 mg subcutaneously one time a week. 4 Each 3 09/24/2023 02/10/2024 Discontinued Start: 09-24-2023 tirzepatide, w eight loss (ZEPBOUND) 2.5 mg/0.5 mL pen injector Indications: Class 2 obesity due to excess calories with body mass index (BMI) of 38.0 to 38.9 in adult, unspecified whether serious comorbidity present Inject 2.5 mg subcutaneously one time a week. 4 Each 3 09/24/2023 Active Comment on above: Inject 2.5 mg subcut aneously one time a week. Problems Active Problems Problem Classification Problem Date Documented Date Episodic/Chronic Administrative/socia l admission (3 sources) Patient encounter status; Translations: [Persons encountering health services in other specified circumstances] Onset: 05-27-2023 Episodic Cardiac dysrhythmias (20 sources) Supraventricular tachycardia; Translations: [Supraventricular tachycardia, unspecified] Onset: 04-17-2024 Chronic Cardiac dysrhythmias (1 source) Palpitations; Translations: [Palpitations] Onset: 01-01-2024 Episodic Contraceptive and procreative management (16 sources) Intrauterine contraceptive device in situ; Translations: [Patient encounter status] 08-10-2020 Episodic Deficiency and other anemia (20 sources) Anemia 11-30-2021 Episodic Deficiency and other anemia (1 source) Megaloblastic anemia due to vitamin B>12< deficiency; Translations: [Vitamin B12 deficiency anemia, unspecified] Onset: 03-30-2024 Episodic Deficiency and other anemia (20 sources) Iron deficiency anemia; Translations: [Iron deficiency anemia, unspecified] Onset: 03-30-2024 Episodic Deficiency and other anemia (20 sources) Nutritional anemia 03-30-2024 Episodic Deficiency and other anemia (2 sources) Acquired iron deficiency anemia due to increased iron requirement 06-22-2024 Episodic Disorders of lipid metabolism (20 sources) 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 Esophageal disorders (9 sources) Gastroesophageal reflux disease; Translations: [Gastro-esophageal reflux disease without esophagitis] 04-23-2024 Chronic Essential hypertension (10 sources) Hypertensive disorder; Translations: [Essential (primary) hypertension] Onset: 05-05-2024 05-05-2024 Chronic Fluid and electrolyte disorders (1 source) Hypokalemia; Translations: [Hypokalemia] Onset: 04-17-2024 Episodic Genitourinary symptoms and ill-defined conditions (20 sources) Urine drug levels - finding 11-30-2021 Episodic Headache; including migraine (20 sources) Migraine 05-21-2014 Chronic Hemorrhage during ; abruptio placenta; placenta previa (1 source) Threatened miscarriage; Translations: [Threatened ] Onset: 10-29-2023 Episodic Malaise and fatigue (20 sources) Fatigue; Translations: [Other fatigue] Onset: 05-29-2023 Episodic Mood disorders (20 sources) Depression; Translations: [Mild manic bipolar I disorder] Onset: 08-28-2017 05-21-2014 Chronic Comment on above: Outside Source Comme nt: Overview: Continue to follow with Nury Zaman in behavioral health at [facility] Nonmalignant breast conditions (1 source) Inflammatory disorder of breast; Translations: [Mastitis without abscess] Onset: 05-30-2024 Episodic Nonspecific chest pain (2 sources) Chest pain; Translations: [Chest pain, unspecified] 06-03-2024 Episodic Nutritional deficiencies (20 sources) Vitamin D deficiency 11-26-2019 Chronic Other circulatory disease (20 sources) Elevated blood-pressure reading without diagnosis of hypertension; Translations: [Elevated blood-pressure reading, without diagnosis of hypertension] Onset: 05-29-2023 Episodic Other complications of ; puerperium affecting management of mother (5 sources) Obesity in mother complicating childbirth; Translations: [Obesity complicating childbirth] Onset: 05-05-2024 Resolved: 06-30-2024 05-05-2024 Chronic Other complications of ; puerperium affecting management of mother (1 source) Obesity complicating childbirth; Translations: [Obesity complicating childbirth ([facility])] Onset: 05-05-2024 Chronic Other complications of (20 sources) Maternal obesity complicating , childbirth and the puerperium, antepartum; Translations: [Obesity complicating , second trimester] Onset: 08-28-2017 05-12-2023 Chronic Comment on above: Outside Source Comme nt: Overview: Recommend no more than 11-20 lb weight gain in . Recommend 30 minutes moderate exercise 5 times a week Recommend an early glucose test Other complications of (1 source) Anemia in mother complicating , childbirth AND/OR puerperium; Translations: [Anemia complicating , unspecified trimester] Onset: 03-30-2024 Chronic Other complications of (15 sources) Hypothyroidism in ; Translations: [Endocrine, nutritional and metabolic diseases complicating , unspecified trimester] Onset: 08-28-2017 05-12-2023 Episodic Comment on above: Outside Source Comme nt: Overview: Increase synthroid to 100mcg daily. This was sent to her pharmacy. Recommend TSH and free T4 every trimester and 4 weeks after any change in medication dosage Other complications of (6 sources) Supraventricular tachycardia; Translations: [Diseases of the circulatory system complicating , unspecified trimester] 04-23-2024 Episodic Other complications of (9 sources) Finding related to ; Translations: [ related conditions, unspecified, third trimester] 04-23-2024 Episodic Other complications of (8 sources) Multigravida of advanced maternal age; Translations: [Supervision of elderly multigravida, third trimester] 04-23-2024 Episodic Other connective tissue disease (1 source) Enthesopathy; Translations: [Other enthesopathies, not elsewhere classified] Onset: 06-19-2024 Episodic Other connective tissue disease (5 sources) Tendonitis of left wrist 06-19-2024 Episodic Other connective tissue disease (4 sources) Radial styloid tenosynovitis; Translations: [Radial styloid tenosynovitis [de Quervain]] 07-29-2024 Episodic Other connective tissue disease (6 sources) Tenosynovitis of left radial styloid; Translations: [Radial styloid tenosynovitis [de Quervain]] 08-31-2024 Episodic Other connective tissue disease (6 sources) Tenosynovitis of right radial styloid; Translations: [Radial styloid tenosynovitis [de Quervain]] 08-31-2024 Episodic Other endocrine disorders (20 sources) Hyperinsulinism 12-31-2018 Chronic Other endocrine disorders (20 sources) Polycystic ovaries 11-26-2019 Chronic Other endocrine disorders (20 sources) Increased androgen level; Translations: [Androgen excess] Onset: 03-14-2023 03-14-2023 Chronic Other endocrine disorders (6 sources) Polycystic ovary syndrome; Translations: [Polycystic ovarian syndrome] Onset: 08-08-2023 Chronic Other hematologic conditions (1 source) Abnormal finding on evaluation procedure; Translations: [Other specified abnormalities of plasma proteins] Onset: 03-30-2024 Episodic Other infections; including parasitic (4 sources) Disorder due to infection; Translations: [Unspecified infectious disease] Onset: 05-24-2024 05-24-2024 Episodic Other liver diseases (20 sources) Steatosis of liver; Translations: [Fatty (change of) liver, not elsewhere classified] Onset: 08-08-2023 Chronic Other non-traumatic joint disorders (4 sources) Pain of left wrist; Translations: [Pain in left wrist] 07-29-2024 Episodic Other non-traumatic joint disorders (2 sources) Pain of right wrist; Translations: [Pain in right wrist] 08-31-2024 Episodic Other nutritional; endocrine; and metabolic disorders (20 sources) Body mass index 30+ - obesity; Translations: [Body mass index (BMI) 39.0-39.9, adult] Onset: 06-16-2024 11-26-2019 Chronic Other nutritional; endocrine; and metabolic disorders (8 sources) Body mass index 40+ - severely obese; Translations: [Body mass index (BMI) 40.0-44.9, adult] Onset: 09-14-2022 Chronic Other nutritional; endocrine; and metabolic disorders (1 source) Severe obesity; Translations: [Morbid (severe) obesity due to excess calories] Chronic Other nutritional; endocrine; and metabolic disorders (8 sources) Obesity; Translations: [Other obesity due to excess calories] Onset: 08-08-2023 Chronic Other nutritional; endocrine; and metabolic disorders (20 sources) Obesity caused by energy imbalance; Translations: [Other obesity due to excess calories] Onset: 03-14-2023 03-14-2023 Chronic Other nutritional; endocrine; and metabolic disorders (1 source) Obese class II; Translations: [Body mass index (BMI) 39.0-39.9, adult] Onset: 08-08-2023 Chronic Other nutritional; endocrine; and metabolic disorders (2 sources) Body mass index (BMI) 39.0-39.9, adult; Translations: [Body mass index (BMI) 39.0-39.9, adult] Onset: 06-16-2024 Chronic Other and delivery including normal (20 sources) Normal ; Translations: [Encounter for supervision of other normal , unspecified trimester] Onset: 09-23-2012 Resolved: 03-09-2013 11-17-2012 Episodic Other screening for suspected conditions (not mental disorders or infectious disease) (20 sources) Serum testosterone level abnormal; Translations: [Procedure carried out on subject] Onset: 05-29-2023 11-26-2019 Episodic Other skin disorders (20 sources) Alopecia areata 11-30-2021 Episodic Other upper respiratory infections (20 sources) Chronic sinusitis; Translations: [Chronic sinusitis, unspecified] Onset: 12-02-2021 Chronic Other upper respiratory infections (20 sources) Acute sinusitis, unspecified; Translations: [Acute sinusitis] Onset: 09-14-2022 Episodic Residual codes; unclassified (2 sources) Gestation period, 31 weeks; Translations: [31 weeks gestation of ] 04-23-2024 Episodic Residual codes; unclassified (6 sources) Never smoked tobacco; Translations: [Other specified health status] Onset: 05-19-2024 05-19-2024 Episodic Residual codes; unclassified (2 sources) Gestation period, 29 weeks; Translations: [29 weeks gestation of ] 04-01-2024 Episodic Residual codes; unclassified (4 sources) 35 weeks gestation of ; Translations: [35 weeks gestation of ([facility])] Onset: 05-19-2024 Episodic Residual codes; unclassified (2 sources) 33 weeks gestation of ; Translations: [33 weeks gestation of ([facility])] Onset: 05-05-2024 Episodic Residual codes; unclassified (2 sources) Other specified health status; Translations: [Other specified health status] Onset: 05-19-2024 Episodic Thyroid disorders (20 sources) Hypothyroidism; Translations: [Acquired hypothyroidism] Onset: 09-05-2016 03-05-2018 Chronic Unclassified (20 sources) Current non-smoker 11-26-2019 Unclassified (20 sources) Patient encounter status 08-10-2020 Unclassified (20 sources) Onset: 05-10-2004 Resolved: 03-05-2018 01-14-2019 Comment on above: - Unclassified (20 sources) Protein level - finding 03-30-2024 Unclassified (2 sources) Follow-up; Translations: [ Follow-up] Onset: 06-30-2024 Unclassified (2 sources) Supraventricular tachycardia, unspecified (CMS-HCC); Translations: [Supraventricular tachycardia, unspecified (CMS-HCC)] Onset: 05-05-2024 Urinary tract infections (1 source) Urinary tract infectious disease; Translations: [Urinary tract infection, site not specified] Onset: 06-28-2024 Episodic Past or Other Problems Problem Classification Problem Date Documented Date Episodic/Chronic Biliary tract disease (2 sources) Chronic cholecystitis; Translations: [Chronic cholecystitis] Onset: 10-02-2007 Resolved: 06-01-2012 06-01-2012 Episodic Other complications of (20 sources) Depressive disorder in mother complicating Onset: 08-28-2017 05-12-2023 Episodic Comment on above: Outside Source Comme nt: Overview: Continue following with Nury Zaman in behavioral health at [facility] Continue zoloft Risks of withdrawal discussed Other complications of (20 sources) High risk Onset: 08-28-2017 05-12-2023 Episodic Comment on above: Outside Source Comme nt: Overview: PLAN OF CARE MD/OB APPOINTMENTS How often should patient be evaluated? As clinically indicated Work restrictions: none EVALUATION surveillance: as clinically indicated Ultrasound: anatomic survey at 18-20 weeks DELIVERY PLAN Hospital: [facility] Let Labor GBS culture: Contraception: Residual codes; unclassified (6 sources) Gestation period, 33 weeks; Translations: [33 weeks gestation of ] Onset: 05-05-2024 Resolved: 06-30-2024 04-23-2024 Episodic Residual codes; unclassified (6 sources) Gestation period, 35 weeks; Translations: [35 weeks gestation of ] Onset: 05-19-2024 Resolved: 06-30-2024 05-19-2024 Episodic Residual codes; unclassified (2 sources) Gestation period, 26 weeks; Translations: [26 weeks gestation of ] 03-12-2024 Episodic Spontaneous (2 sources) with abortive outcome; Translations: [Complete or unspecified spontaneous without complication] Onset: 03-10-2012 Resolved: 06-01-2012 06-01-2012 Episodic Unclassified (2 sources) Supraventricular tachycardia, unspecified (CMS-HCC); Translations: [Supraventricular tachycardia, unspecified ([facility]-HCC)] Onset: 04-17-2024 NEGATED: Highlighted row has been ruled out!Unclassified (14 sources) No known active problems 12-25-2023 Results Test Name Value Interpretation Reference Range Facility No Panel Informationon 08-31 Merlyn Castaneda MA 08/31/2024 10:16 AM M Inj/Asp: bilateral radiocarpal on 08/31/2024 9:47 AM Indications: pain Details: 25 G needle, ultrasound-guided anterolateral approach Medications (Right): 6 mg betamethasone acetate-betamethasone sodium phosphate 6 (3-3) MG/ML Medications (Left): 6 mg betamethasone acetate-betamethasone sodium phosphate 6 (3-3) MG/ML Procedure, treatment alternatives, risks and benefits explained, specific risks discussed. Consent was given by the patient. Immediately prior to procedure a time out was called to verify the correct patient, procedure, equipment, clinical support tech and site/side marked as required. Patient was prepped and draped in the usual sterile fashion. [facility] XR Wrist - right 3 Viewson 0 08-31-2024 Imaging Result: AP lateral and oblique of the right wrist demonstrates some findings of calcific tendinitis to the extensor mechanism over the radial aspect of the basilar thumb consistent with de Quervain tenosynovitis no evidence of arthritis to the proximal or distal carpal rows no evidence of fracture bony tumor seen. [facility] Radiology Study observation (narrative) [facility] Ambulatory Visit Summaryon 0 08-07-2024 Ambulatory Visit Summary Ambulatory Visit Summary ILDA VIERA :1985 Visit Date:08/07/2024 Ambulatory Visit Instructions Your Diagnosis BMI 39.0-39.9,adult Non-smoker Your Care Team Attending Physician - Iraida Gaming Primary Care Physician - Iraida Gaming This Is Your Medications List albuterol (Albuterol (Eqv-ProAir HFA) 90 mcg/inh inhalation aerosol) amlodipine-valsartan (amlodipine-valsartan 5 mg-160 mg oral tablet) amphetamine-dextroampheta mine (amphetamine-dextroamphet amine 10 mg oral tablet) amphetamine-dextroampheta mine (amphetamine-dextroamphet amine 15 mg oral capsule, extended release) ferrous sulfate (Slow Iron) fluticasone nasal (fluticasone 0.05 mg/inh Nasal [place]) labetalol (labetalol 100 mg Tab) lamotrigine (lamotrigine 150 mg Tab) levothyroxine (Levoxyl 137 mcg (0.137 mg) oral tablet) lurasidone (Latuda 60 mg oral tablet) meloxicam (meloxicam 15 mg Tab) metformin (metformin 1000 mg Tab) multivitamin, (M-Jacinta Plus oral tablet) naproxen (Naprosyn 500 mg Tab) nystatin (nystatin 100,000 units/mL Oral Susp) ondansetron (Zofran ODT 4 mg Tab-Dis) Procedures Performed Ethmoidectomy and turbinectomy (12/07/2021), Dental (02/28/2017), Cholecystectomy (2007). Discharge Vitals Heart Rate (Peripheral) 84 Respiratory Rate 18 Blood Pressure 120/82 Height 157.0 cm Height 62 in Weight 98.05 kg Weight 216.163 lb BMI 39.78 What to do next Scheduled Follow-Up Appointments Saturday 9:20 AM EST With: Awais BAI, Dyan Cid Where: [facility] Medications What How Much When Why Instructions Unchanged albuterol (Albuterol (Eqv-ProAir HFA) 90 mcg/ inh inhalation aerosol) 2 Puffs Inhalation Every 4 hours Bronchitis Persistent cough for 3 weeks or longer Morbid obesity with BMI of 40.0-44.9, adult Unchanged amlodipine-valsartan (amlodipine-valsartan 5 mg-160 mg oral tablet) 1 Tablets By Mouth Every day Unchanged amphetamine-dextroampheta mine (amphetamine-dextroamphet amine 10 mg oral tablet) Unchanged amphetamine-dextroampheta mine (amphetamine-dextroamphet amine 15 mg oral capsule, extended release) See instructions 1 cap(s) Oral every afternoon Unchanged ferrous sulfate (Slow Iron) 160 Milligram By Mouth Every day Unchanged fluticasone nasal (fluticasone 0.05 mg/ inh Nasal [place]) 1 Sprays Nasal Inhalation Every day as needed for Allergy symptoms Unchanged labetalol (labetalol 100 mg Tab) 2 Tablets By Mouth 2 times a day Unchanged lamotrigine (lamotrigine 150 mg Tab) 2 Tablets By Mouth Every day Unchanged levothyroxine (Levoxyl 137 mcg (0.137 mg) oral tablet) 1 Tablets By Mouth Every day Unchanged lurasidone (Latuda 60 mg oral tablet) 1 Tablets By Mouth Every day Unchanged meloxicam (meloxicam 15 mg Tab) See instructions TAKE 1 TABLET BY MOUTH EVERY DAY Unchanged metformin (metformin 1000 mg Tab) 1 Tablets By Mouth 2 times a day Unchanged multivitamin, (M- Plus oral tablet) 1 Tablets By Mouth Every day Unchanged naproxen (Naprosyn 500 mg Tab) 1 Tablets By Mouth 2 times a day as needed for for pain Unchanged nystatin (nystatin 100,000 units/ mL Oral Susp) 5 Milliliter By Mouth Every 6 hours Left wrist tendinitis Oral thrush BMI 40.0-44.9, adult Morbid obesity with BMI of 40.0-44.9, adult Nonsmoker retain in mouth as long as possible before swallowing Unchanged ondansetron (Zofran ODT 4 mg Tab-Dis) 1 Tablets By Mouth Every 8 hours as needed for Nausea/Vomiting Allergies Nubain (Hallucination, hallucin) Problems Ongoing - Any problem that you are currently receiving treatment for. Acquired iron deficiency anemia due to increased iron requirement Androgen level above reference range B12 deficiency anemia Bipolar disorder BMI 39.0-39.9,adult BMI 40.0-44.9, adult Current non-smoker Currently Depressive disorder in mother complicating Elevated blood pressure reading without diagnosis of hypertension Elevated total protein Fatigue Fatty liver High risk High serum testosterone Hyperinsulinemia Hypothyroid Iron deficiency anemia of mother during Left wrist tendinitis Maternal obesity complicating , childbirth and the puerperium, antepartum Obesity (BMI 30-39.9) Obesity caused by energy imbalance Oral thrush Polycystic ovary syndrome Recurrent sinusitis Serum testosterone level outside reference range Sinusitis Vitamin D deficiency Wellness examination Historical - Any problem that you are no longer receiving treatment for. Alopecia areata Anemia Bipolar 1 disorder, manic, mild Depression Endogenous hyperlipidemia Migraine Positive urine drug screen benzoid Patient Survey You may receive a survey via text or e-mail asking about your office visit. Please share your experience with us by completing your (more content not included)... Normal [facility] Family Medicine Office/Jo Jin 08-07-2024 Family Medicine Office/Clinic Note Family Medicine Office/Clinic Note [facility] Staff Ilda is a 39 year old female presenting for 1 month follow up DAISHA 06/26/24 Left wrist tendinitis started medrol dose pack and meloxicam, Oral Thrush started nystatin swish and swallow Concerns: Pt is wearing wrist brace and saw ortho had a cortisone injection and that hasn't done anything can go back next month and he will do the second injection. Pain 8/10 with movement Sore has gone away. History of Present Illness pt presents today to discuss testing for sleep apnea Review of Systems PHQ Score Initial Depression Screen Score: 0 SCORE Physical Exam Vitals & Measurements HR: 84(Peripheral) RR: 18 BP: 120/82 SpO2: 98% HT: 62 in HT: 157.0 cm WT: 98.05 kg WT: 216.163 lb BMI: 39.78 General: alert, no acute distress ENMT: oral mucosa moist, no pharyngeal erythema or exudate Cardiovascular: regular rate and rhythm, normal peripheral perfusion Respiratory: Lungs CTA, respirations non labored Extremities: no deformity, no trauma Neurological: oriented x 4, LOC appropriate for age, CN II-XII intact, motor strength equal & normal bilaterally, speech normal Assessment/Plan 1. Loud snoring (R06.83: Snoring) pt has been told she is a very loud snorer. She is now struggling with daily headache, day time tiredness, drowsy when driving. will order sleep apnea testing thought [facility]. pt prefers to do at home test if her insurance will cover it. RTC as needed 2. Witnessed apneic spells (R06.81: Apnea, not elsewhere classified) sleep apnea test ordered 3. Daytime somnolence (R40.0: Somnolence) see above 4. BMI 39.0-39.9,adult (Z68.39: Body mass index [BMI] 39.0-39.9, adult) BMI education 5. Non-smoker (Z78.9: Other specified health status) continue not smoking Follow-up No qualifying data available Problem List/Past Medical History Ongoing Acquired iron deficiency anemia due to increased iron requirement Androgen level above reference range B12 deficiency anemia Bipolar disorder BMI 39.0-39.9,adult BMI 40.0-44.9, adult Current non-smoker Currently Daytime somnolence Depressive disorder in mother complicating Elevated blood pressure reading without diagnosis of hypertension Elevated total protein Fatigue Fatty liver High risk High serum testosterone Hyperinsulinemia Hypothyroid Iron deficiency anemia of mother during Left wrist tendinitis Loud snoring Maternal obesity complicating , childbirth and the puerperium, antepartum Obesity (BMI 30-39.9) Obesity caused by energy imbalance Oral thrush Polycystic ovary syndrome Recurrent sinusitis Serum testosterone level outside reference range Sinusitis Vitamin D deficiency Wellness examination Witnessed apneic spells Historical Alopecia areata Anemia Bipolar 1 disorder, manic, mild Depression Endogenous hyperlipidemia Migraine Positive urine drug screen benzoid Procedure/Surgical History Ethmoidectomy and turbinectomy (12/07/2021), Dental (02/28/2017), Cholecystectomy (2007). Medications Albuterol (Eqv-ProAir HFA) 90 mcg/inh inhalation aerosol, 2 puff(s), Inhalation, q4hr amlodipine-valsartan 5 mg-160 mg oral tablet, 1 tab(s), Oral, Daily amphetamine-dextroampheta mine 10 mg oral tablet amphetamine-dextroampheta mine 15 mg oral capsule, extended release, See Instructions fluticasone 0.05 mg/inh Nasal [place], 1 spray(s), Nasal, Daily, PRN labetalol 100 mg Tab, 200 mg= 2 tab(s), Oral, BID lamotrigine 150 mg Tab, 300 mg= 2 tab(s), Oral, Daily, 5 refills Latuda 60 mg oral tablet, 60 mg= 1 tab(s), Oral, Daily Levoxyl 137 mcg (0.137 mg) oral tablet, 137 mcg= 1 tab(s), Oral, Daily M-Jacinta Plus oral tablet, 1 tab(s), Oral, Daily meloxicam 15 mg Tab, See Instructions metformin 1000 mg Tab, 1000 mg= 1 tab(s), Oral, BID, 3 refills Naprosyn 500 mg Tab, 500 mg= 1 tab(s), Oral, BID, PRN nystatin 100,000 units/mL Oral Susp, [id number] unit(s)= 5 mL, Oral, q6hr Slow Iron, 160 mg, Oral, Daily Zero Hour, None, Day of Tx Zero Hour, None, Day of Tx Zero Hour, None, Day of Tx Zero Hour, None, Day of Tx Zero Hour, None, Day of Tx Zero Hour, None, Day of Tx Zero Hour, None, Day of Tx Zero Hour, None, Day of Tx Zero Hour, None, Day of Tx Zero Hour, None, Day of Tx Zofran ODT 4 mg Tab-Dis, 4 mg= 1 tab(s), Oral, q8hr, PRN Allergies Nubain (Hallucination, hallucin) Social History Alcohol - Denies Alcohol Use, 11/26/2019 Never., 06/20/2024 Substance Abuse - Denies Substance Abuse, 11/26/2019 Never., 06/20/2024 Tobacco - Denies Tobacco Use, 07/30/2019 Never (less than 100 in lifetime) Tobacco Use:. Household tobacco concerns: No., 07/06/2024 Family History Afib: Father. Hyperlipidemia: Mother and Father. Hypertension: Mother and Father. Immunizations Vaccine Date Status Comments measles/mumps/rubella (more content not included)... Normal [facility] Comment on above: Result Comment: Elec tronically Signed By: Iraida Gaming.br\Date and Time Signed: 08/07/24 12:14 EST IUD Insertionon 08-06-2024 Josselyn Soria NP 08/06/2024 1:41 PM IUD Insertion Performed by: Josselyn Soria NP Authorized by: Josselyn Soria NP Procedure: IUD insertion Consent obtained by patient, parent, or legal power of estate attorney - including discussion of procedure risks and benefits, patient questions answered, and patient education provided: yes risk: reasonably certain the patient is not Date/Time of Insertion: 08/06/2024 1:31 PM Immediately prior to procedure a time out was called: yes Pelvic exam performed: yes Cervix cleaned and prepped: yes Tenaculum/Allis/Ring Forceps applied to cervix: yes (Allis.) Uterus sound depth (cm): 8 IUD inserted without complications: yes OSM: 52 mL Levonorgestrel 20.1 MCG/DAY Strings trimmed to (cm): 3 Patient tolerated procedure well: yes Estimated blood loss (mL): 0 Intended removal date: 8 years [facility] No Panel Informationon 07-29 Merlyn Castaneda MA 07/29/2024 2:10 PM M Inj/Asp: L radiocarpal on 07/29/2024 1:48 PM Indications: pain Details: 25 G needle, ultrasound-guided Medications: 3 mg betamethasone acetate-betamethasone sodium phosphate 6 (3-3) MG/ML Procedure, treatment alternatives, risks and benefits explained, specific risks discussed. Consent was given by the patient. Immediately prior to procedure a time out was called to verify the correct patient, procedure, equipment, clinical support tech and site/side marked as required. Patient was prepped and draped in the usual sterile fashion. [facility] XR Wrist - left 3 Viewson Imaging Result: AP lateral and oblique of the left wrist taken in the office today does demonstrate some cystic changes to the lunate with no evidence of widening of the conjoining carpal bones. No evidence of fracture or dislocation seen [facility] Radiology Study observation (narrative) [facility] THINPREP TIS PAP AND HPV mRN A E6/E7 WITH REFLEX TO HPV 16,18/45on 07-08-2024 CLINICAL INFORMATION: Normal [facility] Comment on above: Result Comment: None given Performed By: #### 9 1414 #### [employer] [place] [id number] Emergency Medical Technician: Samson Ignacio MD COMMENT Normal [facility] Comment on above: Result Comment: EXPL ANATORY NOTE: The Pap is a screening test for cervical cancer. It is not a diagnostic test and is subject to false negative and false positive results. It is most reliable when a satisfactory sample, regularly obtained, is submitted with relevant clinical findings and history, and when the Pap result is evaluated along with historic and current clinical information. Performed By: #### 9 1414 #### [facility] [address], [address] [place] [id number] Emergency Medical Technician: Samson Ignacio MD COMMENT: Normal [facility] Comment on above: Result Comment: This Pap test has been evaluated with computer assisted technology. Performed By: #### 9 1414 #### [facility] [place] [address] [address] Emergency Medical Technician: Samson Ignacio MD BITUMASTIC APPLIER: Normal [facility] Comment on above: Result Comment: BLM, CT(ASCP) CT Screening Location: [place] [address] Performed By: #### 9 1414 #### [facility] [address], [address] [place] [address] Emergency Medical Technician: Samson Ignacio MD HPV mRNA E6/E7 Not detected Normal Not Detected [facility] Comment on above: Result Comment: Meth odology: Bid Clerk-Mediated Amplification This assay detects E6/E7 viral messenger RNA (mRNA) from 14 high-risk HPV types (16,18,31,33,35,39,45,51,52,56,58,59,66,68). Cervical sources are required for HPV testing. If a vaginal source from a patient who has had a total hysterectomy with removal of cervix was submitted, please contact the testing laboratory for alternative testing options. For additional information, please refer to http://education.[employer]/faq/MZV572t3 (This link if provided for information/ educational purposes only.) Performed By: #### 9 1414 #### [facility] [place] [address] Emergency Medical Technician: Samson Ignacio MD INTERPRETATION/RESULT : Normal [facility] Comment on above: Result Comment: Cyto logy Results: Negative for intraepithelial lesion or malignancy. Performed By: #### 9 1414 #### [facility] [place] [address] Emergency Medical Technician: Samson Ignacio MD LMP: Normal [facility] Comment on above: Result Comment: None given Performed By: #### 9 1414 #### [facility] [place] [address] Emergency Medical Technician: Samson Ignacio MD PREV. BX: Normal [facility] Comment on above: Result Comment: None given Performed By: #### 9 1414 #### [facility] [place] [address] Emergency Medical Technician: Samson Ignacio MD PREV. PAP: Normal [facility] Comment on above: Result Comment: None given Performed By: #### 9 1414 #### [facility] of [address], [address] [place] [address] Emergency Medical Technician: Samson Ignacio MD SOURCE: Normal [facility] Comment on above: Result Comment: None given Performed By: #### 9 1414 #### [facility] of [address], [address] [place] [address] Emergency Medical Technician: Samson Ignacio MD STATEMENT OF ADEQUACY: Normal [facility] Comment on above: Result Comment: Sati sfactory for evaluation. Endocervical/transformation zone component present. Performed By: #### 9 1414 #### [facility] of [address], [address] [place] [address] Emergency Medical Technician: Samson Ignacio MD Ambulatory Visit Summaryon 1 09-06-2023 Ambulatory Visit Summary Ambulatory Visit Summary ILDA VIERA :1985 Visit Date:07/06/2024 Ambulatory Visit Instructions Your Diagnosis Left wrist tendinitis BMI 40.0-44.9, adult, Body mass index [BMI] 40.0-44.9, adult Morbid obesity with BMI of 40.0-44.9, adult Nonsmoker Your Care Team Attending Physician - Iraida Gaming Primary Care Physician - Iraida Gaming This Is Your Medications List albuterol (Albuterol (Eqv-ProAir HFA) 90 mcg/inh inhalation aerosol) amlodipine-valsartan (amlodipine-valsartan 5 mg-160 mg oral tablet) ferrous sulfate (Slow Iron) fluticasone nasal (fluticasone 0.05 mg/inh Nasal [place]) labetalol (labetalol 100 mg Tab) lamotrigine (lamotrigine 150 mg Tab) levothyroxine (Levoxyl 137 mcg (0.137 mg) oral tablet) metformin (metformin 1000 mg Tab) multivitamin, (M-Jacinta Plus oral tablet) naproxen (Naprosyn 500 mg Tab) ondansetron (Zofran ODT 4 mg Tab-Dis) Procedures Performed Ethmoidectomy and turbinectomy (12/07/2021), Dental (02/28/2017), Cholecystectomy (2007). Discharge Vitals Temperature (Temporal Artery) 36.3 ???C Heart Rate (Peripheral) 74 Respiratory Rate 16 Blood Pressure 118/76 Height 157 cm Height 62 in Weight 100.4 kg Weight 221.344 lb BMI 40.73 What to do next Scheduled Follow-Up Appointments Saturday 10:00 AM EST With: Iraida Gaming Where: [place] [id number] Saturday 9:20 AM EST With: Awais BAI, Dyan Cid Where: [facility] Medications What How Much When Why Instructions Unchanged albuterol (Albuterol (Eqv-ProAir HFA) 90 mcg/ inh inhalation aerosol) 2 Puffs Inhalation Every 4 hours Bronchitis Persistent cough for 3 weeks or longer Morbid obesity with BMI of 40.0-44.9, adult Unchanged amlodipine-valsartan (amlodipine-valsartan 5 mg-160 mg oral tablet) 1 Tablets By Mouth Every day Unchanged ferrous sulfate (Slow Iron) 160 Milligram By Mouth Every day Unchanged fluticasone nasal (fluticasone 0.05 mg/ inh Nasal [place]) 1 Sprays Nasal Inhalation Every day as needed for Allergy symptoms Unchanged labetalol (labetalol 100 mg Tab) 2 Tablets By Mouth 2 times a day Unchanged lamotrigine (lamotrigine 150 mg Tab) 2 Tablets By Mouth Every day Unchanged levothyroxine (Levoxyl 137 mcg (0.137 mg) oral tablet) 1 Tablets By Mouth Every day Unchanged metformin (metformin 1000 mg Tab) 1 Tablets By Mouth 2 times a day Unchanged multivitamin, (M-Jacinta Plus oral tablet) 1 Tablets By Mouth Every day Unchanged naproxen (Naprosyn 500 mg Tab) 1 Tablets By Mouth 2 times a day as needed for for pain Unchanged ondansetron (Zofran ODT 4 mg Tab-Dis) 1 Tablets By Mouth Every 8 hours as needed for Nausea/Vomiting Allergies Nubain (Hallucination, hallucin) Problems Ongoing - Any problem that you are currently receiving treatment for. Acquired iron deficiency anemia due to increased iron requirement Androgen level above reference range B12 deficiency anemia Bipolar disorder BMI 39.0-39.9,adult BMI 40.0-44.9, adult Current non-smoker Currently Depressive disorder in mother complicating Elevated blood pressure reading without diagnosis of hypertension Elevated total protein Fatigue Fatty liver High risk High serum testosterone Hyperinsulinemia Hypothyroid Iron deficiency anemia of mother during Left wrist tendinitis Maternal obesity complicating , childbirth and the puerperium, antepartum Obesity (BMI 30-39.9) Obesity caused by energy imbalance Polycystic ovary syndrome Recurrent sinusitis Serum testosterone level outside reference range Sinusitis Vitamin D deficiency Wellness examination Historical - Any problem that you are no longer receiving treatment for. Alopecia areata Anemia Bipolar 1 disorder, manic, mild Depression Endogenous hyperlipidemia Migraine Positive urine drug screen benzoid Patient Survey You may receive a survey via text or e-mail asking about your office visit. Please share your experience with us by completing your survey. We appreciate your feedback and thank you for choosing us for your care. Normal [facility] Family Medicine Office/Clini c Noteon 07-06-2024 Family Medicine Office/Clinic Note Family Medicine Office/Clinic Note HPI Staff Ilda is a 39 year old female presenting to [facility] Establish Care: History: bipolar, HTN, hypothyroid, hyperinsulinemia, Vit D def. 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 was seen at [facility] and given a brace Physical Exam Vitals & Measurements T: 36.3 ???C(Temporal Artery) HR: 74(Peripheral) RR: 16 BP: 118/76 SpO2: 99% HT: 62 in HT: 157 cm WT: 100.4 kg WT: 221.344 lb BMI: 40.73 General: alert, no acute distress ENMT: oral mucosa moist, no pharyngeal erythema or exudate Cardiovascular: regular rate and rhythm, normal peripheral perfusion Respiratory: Lungs CTA, respirations non labored Extremities: no deformity, no trauma Neurological: oriented x 4, LOC appropriate for age, CN II-XII intact, motor strength equal & normal bilaterally, speech normal Assessment/Plan 1. Left wrist tendinitis (M77.8: Other enthesopathies, not elsewhere classified) pt still struggling with left wrist pain. injured it when delivering her baby. was pulling on sheets and started having pain. will send in meloxicam and medrol dose pack. will send referral for further evaluation Ordered: meloxicam, 15 mg = 1 tab(s), Oral, Daily, # 30 tab(s), Refills(s) 0, Pharmacy: [facility]/pharmacy #[id number], 157, cm, 07/06/24 13:18:00 EST, Height/Length Dosing, 100.4, kg, 07/06/24 13:18:00 EST, Weight Dosing methylPREDNISolone, = 1 packet(s), Oral, As Directed, as directed on package labeling, X 6 day(s), # 21 tab(s), Refills(s) 0, Pharmacy: [facility]/pharmacy #[id number], 157, cm, 07/06/24 13:18:00 EST, Height/Length Dosing, 100.4, kg, 07/06/24 13:18:00 EST, Weight Dosing nystatin, 500,000 unit(s) = 5 mL, Oral, q6hr, retain in mouth as long as possible before swallowing, # 200 mL, Refills(s) 0, Pharmacy: [facility]/pharmacy #[id number], 157, cm, 07/06/24 13:18:00 EST, Height/Length Dosing, 100.4, kg, 07/06/24 13:18:00 EST, Weight Dosing Body Mass Index (BMI) documented 3008F Current tobacco non-user 1036F [facility] External Ambulatory Referral Most recent diastolic blood pressure <80 mm Hg 3078F Systolic BP <130 mm Hg (Most Recent) 3074F 2. Oral thrush (B37.0: Candidal stomatitis) will send nystatin swish and swallow Ordered: meloxicam, 15 mg = 1 tab(s), Oral, Daily, # 30 tab(s), Refills(s) 0, [id number], cm, 07/06/24 13:18:00 EST, Height/Length Dosing, 100.4, kg, 07/06/24 13:18:00 EST, Weight Dosing methylPREDNISolone, = 1 packet(s), Oral, As Directed, as directed on package labeling, X 6 day(s), # 21 tab(s), Refills(s) 0, [id number], 157, cm, 07/06/24 13:18:00 EST, Height/Length Dosing, 100.4, kg, 07/06/24 13:18:00 EST, Weight Dosing nystatin, 500,000 unit(s) = 5 mL, Oral, q6hr, retain in mouth as long as possible before swallowing, # 200 mL, Refills(s) 0, [id number] 157, cm, 07/06/24 13:18:00 EST, Height/Length Dosing, 100.4, kg, 07/06/24 13:18:00 EST, Weight Dosing 3. BMI 40.0-44.9, adult, (Z68.41: Body mass index [BMI] 40.0-44.9, adult)Body mass index [BMI] 40.0-44.9, adult BMI education given Ordered: meloxicam, 15 mg = 1 tab(s), Oral, Daily, # 30 tab(s), Refills(s) 0, [id number] 157, cm, 07/06/24 13:18:00 EST, Height/Length Dosing, 100.4, kg, 07/06/24 13:18:00 EST, Weight Dosing methylPREDNISolone, = 1 packet(s), Oral, As Directed, as directed on package labeling, X 6 day(s), # 21 tab(s), Refills(s) 0, [id number] 157, cm, 07/06/24 13:18:00 EST, Height/Length Dosing, 100.4, kg, 07/06/24 13:18:00 EST, Weight Dosing nystatin, 500,000 unit(s) = 5 mL, Oral, q6hr, retain in mouth as long as possible before swallowing, # 200 mL, Refills(s) 0, Pharmacy: [facility]/pharmacy #[id number], 157, cm, 07/06/24 13:18:00 EST, Height/Length Dosing, 100.4, kg, 07/06/24 13:18:00 EST, Weight Dosing Body Mass Index (BMI) documented 3008F Current tobacco non-user 1036F [facility] External Ambulatory Referral Most recent diastolic blood pressure <80 mm Hg 3078F Systolic BP <130 mm Hg (Most Recent) 3074F 4. Morbid obesity with BMI of 40.0-44.9, adult (E66.01: Morbid (severe) obesity due to excess calories) see above Ordered: meloxicam, 15 mg = 1 tab(s), Oral, Daily, # 30 tab(s), Refills(s) 0, Pharmacy: [facility]/pharmacy #[id number], 157, cm, 07/06/24 13:18:00 EST, Height/Length Dosing, 100.4, kg, 07/06/24 13:18:00 EST, Weight Dosing methylPREDNISolone, = 1 packet(s), Oral, As Directed, as directe (more content not included)... [facility] Comment on above: Result Comment: Elec tronically Signed By: Iraida Gaming\.br\Date and Time Signed: 07/06/24 14:45 EST C Urineon 06-30-2024 Bacteria identified Cx Nom (U) Microbiology PROCEDURE: Urine Culture [R1] SOURCE: U CleanCatch BODY SITE: COLLECTED DATE/TIME: 06/28/2024 12:32 EST RECEIVED DATE/TIME: 06/28/2024 13:33 EST START DATE/TIME: 06/28/2024 13:33 EST FREE TEXT SOURCE: Raul SERVIN, Fabricio Bobo. Raul SERVIN, Fabricio Bobo. FINAL REPORTS Final Report [] Verified Date/Time: 06/30/2024 09:03 EST <10,000 cfu/ml Mixed skin contaminants Performing Locations R1: This [facility] performed at: [facility], [address] [place] [address], [facility] , , [facility] Comment on above: Performed By: #### 2 [id number] #### [facility] [address] [place] [address] BMPon 06-28-2024 Anion gap [Moles/Vol] 11 mmol/L Normal 6-16 [facility] Comment on above: Performed By: #### 2 [id number] #### [facility] [address] [place] [address] Calcium [Mass/Vol] 9.2 mg/dL Normal 8.9-11.1 [facility] Comment on above: Performed By: #### 2 [id number] #### [facility] [address] [place] [address] Chloride [Moles/Vol] 103 mmol/L Normal 101-111 [facility] Comment on above: Performed By: #### 2 [id number] #### [facility] [address] [place] [address] CO2 [Moles/Vol] 28 mmol/L Normal 21-31 [facility] Comment on above: Performed By: #### 2 [id number] #### [facility] [address] [place] [address] Creatinine [Mass/Vol] 0.9 mg/dL Normal 0.5-1.3 [facility] Comment on above: Performed By: #### 2 [id number] #### [facility] [address] [place] [address] Glucose [Mass/Vol] 101 mg/dL Normal 55-199 [facility] Comment on above: Performed By: #### 2 [id number] #### [facility] [address] [place] [address] Potassium [Moles/Vol] 4.0 mmol/L Normal 3.5-5.3 [facility] Comment on above: Performed By: #### 2 [id number] #### [facility] [address] [place] [address] Sodium [Moles/Vol] 138 mmol/L Normal 135-145 [facility] Comment on above: Performed By: #### 2 [id number] #### [facility] [address] [place] [address] Urea nitrogen [Mass/Vol] 8 mg/dL Normal 5-21 [facility] Comment on above: Performed By: #### 2 [id number] #### [facility] [address] [place] [address] Urea nitrogen/Creatinine [Mass ratio] 9 No Units Low 10-20 [facility] Comment on above: Performed By: #### 2 [id number] #### [facility] [address] [place] [address] CBC w/ Auto Diffon 4 Basophils/100 WBC (Bld) 0.4 % Normal 0.0-2.0 [facility] Comment on above: Performed By: #### 2 [id number] #### [facility] [address] [place] [address] Basophils/Leukocytes Auto (Bld) [Pure # fraction] 0.0 E9/L Normal 0.0-0.2 [facility] Comment on above: Performed By: #### 2 [id number] #### [facility] [address] [place] [address] Eosinophils (Bld) [#/Vol] 0.2 E9/L Normal 0.0-0.5 [facility] Comment on above: Performed By: #### 2 [id number] #### [facility] [address] [place] [address] Eosinophils/100 WBC (Bld) 2.1 % Normal 0.0-8.0 [facility] Comment on above: Performed By: #### 2 175117 #### [facility] [address] [place] [address] Erythrocyte distribution width (RBC) [Ratio] 14.1 % Normal 10.9-14.2 [facility] Comment on above: Performed By: #### 2 [id number] #### [facility] [address] [place] [address] Hematocrit (Bld) [Volume fraction] 35.6 % Normal 34.0-46.0 [facility] Comment on above: Performed By: #### 2 111726 #### [facility] [address] [place] [address] Hemoglobin (Bld) [Mass/Vol] 12.2 g/dL Normal 12.0-16.0 [facility] Comment on above: Performed By: #### 2 664594 #### [facility] [address] [place] [address] Lymphocytes (Bld) [#/Vol] 2.7 E9/L Normal 1.0-4.0 [facility] Comment on above: Performed By: #### 2 121965 #### [facility] [address] [place] [address] Lymphocytes/100 WBC (Bld) 30.4 % Normal 14.0-50.0 [facility] Comment on above: Performed By: #### 2 357001 #### [facility] [address] [place] [address] MCH (RBC) [Entitic mass] 30.2 pg Normal 27.0-34.0 [facility] Comment on above: Performed By: #### 2 845329 #### [facility] [address] [place] [address] MCHC (RBC) [Mass/Vol] 34.2 g/dL Normal 31.4-36.0 [facility] Comment on above: Performed By: #### 2 289651 #### [facility] [address] [place] [address] MCV (RBC) [Entitic vol] 88.2 fL Normal 80.0-100.0 [facility] Comment on above: Performed By: #### 2 370999 #### [facility] [address] [place] [address] Monocytes (Bld) [#/Vol] 0.6 E9/L Normal 0.2-1.0 [facility] Comment on above: Performed By: #### 2 434774 #### [facility] [address] [place] [address] Neutrophils (Bld) [#/Vol] 5.3 E9/L Normal 2.0-7.5 [facility] Comment on above: Performed By: #### 2 [id number] #### [facility] [address] [place] [address] Neutrophils/100 WBC (Bld) 60.1 % Normal 36.0-75.0 [facility] Comment on above: Performed By: #### 2 745892 #### [facility] [address] [place] [address] Platelet mean volume (Bld) [Entitic vol] 6.7 fL Normal 6.4-10.8 [facility] Comment on above: Performed By: #### 2 498268 #### [facility] [address] [place] [address] Platelets (Bld) [#/Vol] 323.0 E9/L Normal 150.0-500.0 [facility] Comment on above: Performed By: #### 2 [id number] #### [facility] [address] [place] [address] RBC (Bld) [#/Vol] 4.0 E12/L Low 4.3-5.9 [facility] Comment on above: Performed By: #### 2 [id number] #### [facility] [address] [place] [address] WBC corrected for nucl RBC Auto (Bld) [#/Vol] 8.8 E9/L Normal 4.0-11.0 [facility] Comment on above: Performed By: #### 2 [id number] #### [facility] [address] [place] [address] CHEMISTRYOrdered By: SYSTEM SYSTEM on 06-28-2024 Albumin [Mass/Vol] 4.0 g/dL Normal 3.3 - 5.0 gm/dL Remisol Chem Albumin/Globulin [Mass ratio] 1.2 {ratio} Normal 1.1 - 2.2 Remisol Chem ALP [Catalytic activity/Vol] 96 [iU]/d Normal 21 - 98 Int._Unit/L Remisol Chem ALT No additional P-5'-P [Catalytic activity/Vol] 26 [iU]/d Normal 6 - 46 Int._Unit/L Remisol Chem Anion gap [Moles/Vol] 11 mmol/L Normal 6 - 16 mEq/L R emisol Chem AST [Catalytic activity/Vol] 18 [iU]/d Normal 5 - 43 Int._Unit/L Rem[facility] Chem Bilirubin [Mass/Vol] 0.3 mg/dL Normal 0.0 - 1 .1 mg/dL Remisol Chem Bilirubin.direct [Mass/Vol] 0.1 mg/dL Normal 0.0 - 0.4 mg/dL Remisol Chem Bilirubin.indirect [Mass or moles/Vol] 0.2 mg/dL Normal 0.1 - 0.9 mg/dL [facility] Calcium [Mass/Vol] 9.2 mg/dL Normal 8.9 - 11. 1 mg/dL [facility] Chloride [Moles/Vol] 103 mmol/L Normal 101 - 1 11 mmol/L [facility] CO2 [Moles/Vol] 28 mmol/L Normal 21 - 31 mmol/L [facility] Creatinine [Mass/Vol] 0.9 mg/dL Normal 0.5 - 1.3 mg/dL [facility] Chem eGFR 84 mL/min/1.73 m2 Normal >=59mL/min /1 .73 m2 [facility] Globulin (S) [Mass/Vol] 3.3 g/dL Normal 1.4 - 4.0 gm/dL [facility] Glucose [Mass/Vol] 101 mg/dL Normal 55 - 199 mg/dL [facility] Lipase [Catalytic activity/Vol] 11 U/L Low 13 - 58 unit/L [facility] Potassium [Moles/Vol] 4.0 mmol/L Normal 3.5 - 5.3 mmol/L [facility] Protein [Mass/Vol] 7.3 g/dL Normal 6.0 - 7.8 gm/dL [facility] Sodium [Moles/Vol] 138 mmol/L Normal 135 - 145 mmol/L [facility] Urea nitrogen [Mass/Vol] 8 mg/dL Normal 5 - 21 mg/dL [facility] Urea nitrogen/Creatinine [Mass ratio] 9 mg/mg Low 10 - [address] Abdomen/Pelvis w/o Contra ston 06-28-2024 CT Abdomen/Pelvis w/o Contrast Exam Date/Time: 06/28/2024 12:28 EST Reason for Exam: Pain Report IMPRESSION: No acute process in the unenhanced abdomen/pelvis. No hydronephrosis or nephrolithiasis. HISTORY: Right flank pain. Nausea. Dysuria. History of cholecystectomy. TECHNIQUE: Non-IV contrast imaging of the abdomen and pelvis was performed. Unenhanced imaging is limited for the evaluation of some intra-abdominal and pelvic pathology. Unless otherwise stated, incidental findings in this report do not require further routine follow-up imaging. All CT scans at this facility use dose modulation, iterative reconstruction, and/or weight based dosing when appropriate to reduce radiation dose to as low as reasonably achievable. COMPARISON: None. RESULT: Liver: Unremarkable. Biliary: Cholecystectomy. No abnormal bile duct dilation. Pancreas: Unremarkable. Spleen: No splenomegaly. Adrenals: No mass. Kidneys and urinary tract: No urinary tract calculus or hydronephrosis. No suspicious lesions in the unenhanced kidneys. Bladder unremarkable. GI Tract: No bowel dilation. Diverticulosis without evidence for acute diverticulitis. Appendix unremarkable. Lymph Nodes: No lymphadenopathy. Mesentery/peritoneum/retr operitoneum: No ascites or mass. Vasculature: No abdominal aortic or iliac artery aneurysm. Pelvis: No significant free fluid. Uterus grossly unremarkable. Bladder partially decompressed. Bones/Soft Tissues: No acute osseous findings. Report Lower thorax: Bibasilar atelectasis/scarring. Ordering Provider: Fabricio Carter FINAL REPORT Dictated: 06/28/2024 12:43 pm Fermin Valdez MD Signed (Electronic Signature): 06/28/2024 12:43 pm Signed by: Fermin Valdez MD Transcribed by: GLENN Technologist: AVIS Technical Comments Rectal Contrast Given? No Oral contrast amount in ml's: 0 Normal [facility] ED Clinical Summaryon 2023 ED Clinical Summary ED Clinical Summary [address] [address] ED Clinical Summary Person Information Name: ILDA VIERA/[facility] Age: 39 Years : 1985 Sex: Female Language: Icelandic PCP: Linda Lutz Marital Status: Phone: [phone] Visit Id: Visit Reason: Dysuria; Nausea; Flank pain; BACK PAIN, NAUSEA, TROUBLE WITH URINATION Speciality: Acuity: 3 Enc Type: Emergency Med Service: Emergency Arrival: 06/28/2024 10:57:27 Discharge: 06/28/2024 13:40:21 LOS: 000 02:43 Checkin: 06/28/2024 10:57:27 Checkout: 06/28/2024 13:40:21 Dispo Type: Home (Routine DC) EVENTS: Event Name Event Status Request Date/Time Start Date/Time Complete Date/Time Arrive Complete 06/28/2024 10:57:27 06/28/2024 10:57:27 06/28/2024 10:57:27 Document Home Meds Request 06/28/2024 10:57:27 Triage Complete 06/28/2024 10:57:27 06/28/2024 11:04:58 06/28/2024 11:04:58 Registration Complete 06/28/2024 11:00:23 06/28/2024 11:00:23 06/28/2024 11:00:23 Reg Complete Request 06/28/2024 11:00:23 Reg Bed Request Complete 06/28/2024 11:00:23 06/28/2024 11:00:23 06/28/2024 11:00:23 Bed Assign Complete 06/28/2024 11:00:34 06/28/2024 11:00:34 06/28/2024 11:00:34 Dr Exam Complete 06/28/2024 11:00:34 06/28/2024 11:00:52 06/28/2024 11:00:52 RN Exam Complete 06/28/2024 11:00:34 06/28/2024 11:38:45 06/28/2024 11:38:45 Registration Request 06/28/2024 11:00:52 Dr Exam Complete 06/28/2024 11:21:11 06/28/2024 11:21:11 06/28/2024 11:21:11 CT Cancel 06/28/2024 11:43:30 06/28/2024 12:12:34 Pending Labs Complete 06/28/2024 11:43:30 06/28/2024 12:58:30 Lab Complete 06/28/2024 11:43:30 06/28/2024 12:25:43 Meds Admin Cancel 06/28/2024 11:43:30 06/28/2024 12:13:14 Pending Labs Complete 06/28/2024 12:01:08 06/28/2024 12:01:08 06/28/2024 12:25:43 Lab Complete 06/28/2024 12:01:08 06/28/2024 12:01:08 06/28/2024 12:25:43 CT Complete 06/28/2024 12:12:34 06/28/2024 12:19:22 06/28/2024 12:28:46 Meds Admin Complete 06/28/2024 12:13:14 06/28/2024 12:29:31 Pending Labs Inlab 06/28/2024 12:58:31 06/28/2024 12:58:31 Lab Inlab 06/28/2024 12:58:31 06/28/2024 12:58:31 Discharge Complete 06/28/2024 13:30:47 06/28/2024 13:40:26 06/28/2024 13:40:26 Transfer Complete 06/28/2024 13:40:26 06/28/2024 13:40:26 06/28/2024 13:40:26 ADDRESS: [address] [place] [address] [address] [facility] [id number] PHYS DOC NOTES: MEDICAL INFORMATION: Prescriptions Given: New Medications [id number], [address], [place] [id number], [phone] cephalexin (Keflex 500 mg Cap) 1 Capsules By Mouth every 6 hours for 7 Days. Refills: 0. naproxen (Naprosyn 500 mg Tab) 1 Tablets By Mouth 2 times a day as needed for pain. Refills: 0. ondansetron (Zofran ODT 4 mg Tab-Dis) 1 Tablets By Mouth every 8 hours as needed Nausea/Vomiting. Refills: 0. Medications to Continue with No Changes Other Medications albuterol (Albuterol (Eqv-ProAir HFA) 90 mcg/inh inhalation aerosol) 2 Puffs Inhalation every 4 hours. Refills: 0. amlodipine-valsartan (amlodipine-valsartan 5 mg-160 mg oral tablet) cholecalciferol (cholecalciferol 50,000 intl units oral capsule) 1 Capsules By Mouth every 7 days. Refills: 1. ferrous sulfate (Slow Iron) fluticasone nasal (fluticasone 0.05 mg/inh Nasal [place]) 1 Sprays Nasal Inhalation every day as needed Allergy symptoms. labetalol (labetalol 100 mg Tab) lamotrigine (lamotrigine 150 mg Tab) 2 Tablets By Mouth every day. Refills: 5. levothyroxine (Levoxyl 137 mcg (0.137 mg) oral tablet) 1 Tablets By Mouth every day. metformin (metformin 1000 mg Tab) 1 Tablets By Mouth 2 times a day. Refills: 3. metoprolol (metoprolol succinate 50 mg ER Tab) 2 times a day. multivitamin, (M-Jacinta Plus oral tablet) PATIENT EDUCATION INFORMATION: Instructions: Urinary Tract Infection, Adult, [id number] Follow up: With: Address: When: [facility] [address] [place] [id number] [employer] (1) In 3 days 07/01/2024 Comments: Call Dr for diagnosis based follow up With: Address: When: Linda Taylor [address] [place], [place] [id number] [employer] (1) In 3 days 07/01/2024 Comments: Call Dr for diagnosis based follow up DIAGNOSIS: UTI (urinary tract infection) Normal [facility] ED Note-Physicianon 06-28-20 ED Note-Physician ED Note-Physician Basic Information Time Seen: Raul SERVIN, Fabricio Woodward 06/28/2024 11:00 Chief Complaint right flank pain, nausea, dysuria since Saturday. History of Present Illness A 39-year-old female reports to the emergency department with complaints of right-sided flank pain, nausea, and some dysuria has been going on since Saturday. Reports no fevers with this. Reports that she thinks that she may have a kidney stone. She is unsure what is causing this. Reports no pain really at this time. Reports lower sided back pain with this. She states that she is about 5 weeks. Reports allergies only to Nubain. Is not breast-feeding. Denies taking medications for symptoms at this time. Review of Systems No other aggravating or relieving factors no other associated symptoms no other prior treatments or complaints. Family: Reviewed and noncontributory Social: lives at home Review of systems negative unless otherwise specified in the HPI. Physical Exam Vitals & Measurements T: 37 ???C(Oral) HR: 67(Monitored) RR: 18 BP: 122/65 SpO2: 96% HT: 157 cm WT: 99.5 kg BMI: 40.37 General: The patient appears well and in no apparent distress. Patient is resting comfortably on bed. Afebrile Skin: Warm, dry, no pallor noted. Head: Normocephalic, atraumatic Neck: No JVD Eye: PERRLA, EOMI ENT: Moist mucus membranes Cardiovascular: Regular rate. normal peripheral perfusion Respiratory: No respiratory distress. no accessory muscle use. no obvious audible wheezing Chest Wall: no deformity Musculoskeletal: normal ROM, no deformity, no swelling GI: No obvious distention. Abdomen soft with no rebound tenderness or guarding noted. Mild right-sided lower flank tenderness on palpation. No right-sided CVA tenderness. Neurological: A&O. moves all extremities equal strength and symmetry Psychiatric: Cooperative and appropriate Medical Decision Making MEDICAL DECISION MAKING Number and Complexity of Problems Differential Diagnosis: [] [facility] Data External documents reviewed: [] My EKG interpretation: [] My CT interpretation: Reviewed My X-ray interpretation: [] My Ultrasound interpretation: [] Decision rules/scores evaluated: [] Discussed with: [] Treatment and Disposition ED Course: A 39-year-old female reports to the emerged department with complaints of nausea, dysuria, as well as mild lower back pain. Reports been gone for last couple of days. Abdominal exam is benign the patient. Afebrile. Due to concerns we do lab work as well as CT to rule out against kidney stone. Laboratory noted. No acute changes seen. Positive for UTI. Negative for CT. discussed no signs of kidney stone. Due to concerns, patient started on Keflex for UTI. Discussed with patient was understanding. Follow-up with your primary care provider in 3 to 5 days. If symptoms worsen, do not improve, or new symptoms arise please report back to emergency department for further evaluation. The patient was understanding and agreeable to plan moving forward. Shared decision making: [] Code status: [] Assessment/Plan UTI (urinary tract infection) (N39.0: Urinary tract infection, site not specified) Orders: cephalexin, 500 mg = 1 cap(s), Oral, q6hr, X 7 day(s), # 28 cap(s), Refills(s) 0, [id number], cm, 06/28/24 11:04:00 EST, Height/Length Dosing, 99.5, kg, 06/28/24 11:04:00 EST, Weight Dosing ketorolac, 60 mg = 2 mL, Injection, IntraMuscular, Once, Stop date 06/28/24 12:12:00 EST, STAT, Start date 06/28/24 12:12:00 EST, 06/28/24 12:12:00 EST naproxen, 500 mg = 1 tab(s), Oral, BID, PRN for pain, # 20 tab(s), Refills(s) 0, [id number], 157, cm, 06/28/24 11:04:00 EST, Height/Length Dosing, 99.5, kg, 06/28/24 11:04:00 EST, Weight Dosing ondansetron, 4 mg = 1 tab(s), Tab-Dis, Oral, Once, Stop date 06/28/24 12:13:00 EST, STAT, Start date 06/28/24 12:13:00 EST, 06/28/24 12:13:00 EST ondansetron, 4 mg = 1 tab(s), Oral, q8hr, PRN Nausea/Vomiting, # 12 tab(s), Refills(s) 0, [id number] 157, cm, 06/28/24 11:04:00 EST, Height/Length Dosing, 99.5, kg, 06/28/24 11:04:00 EST, Weight Dosing Basic Metabolic Panel CBC w/ Auto Diff CT Abdomen/Pelvis w/o Contrast eGFR Hepatic Function Panel Lipase Level UA with Cult Rflx Urine Culture Medications Administered Given ketorolac 60 mg/2 mL Injection, 60 mg, IntraMuscular Zofran ODT 4 mg Tab-Dis, 4 mg, Oral Disposition Plan Patient Discharge Condition Stable Discharge Disposition to home Discharge Prescription List Prescriptions Keflex 500 mg Cap, 500 mg= 1 cap(s), Oral, q6hr Naprosyn 500 mg Tab, 500 mg= 1 tab(s), Oral, BID, PRN Zofran ODT 4 mg Tab-Dis, 4 mg= 1 tab(s), Oral, q8hr, PRN Follow-up With When Contact Information Bigg KAY In 3 days 07/01/[address] [place], [place] [id number] Business (1) Additional Instructions: Call Dr for diagnosis based follow up Jacquelyn (more content not included)... Normal [facility] Comment on above: Result Comment: Elec tronically Signed By: Fabricio Carter PA-C\.br\Date and Time Signed: 06/28/24 15:40 EST\.br\Electronically Co-Signed By: Kylah Rivas DO\.br\Date and Time Co-Signed: 06/28/24 22:27 EST ED Patient Summaryon 024 ED Patient Summary ED Patient Summary [address] [address] Patient Discharge Instructions Person Information Name: ILDA VIERA Age: 39 Years Arrival Date: 06/28/2024 10:57:27 Discharge Diagnosis: UTI (urinary tract infection) Primary Care Physician: Linda Lutz Provider Information Primary Provider: Kylah Rivas DO Advanced Curriculum Assistant:None The exam and treatment you received in the Emergency Department were for an urgent problem and are not intended as complete care. It is important that you follow up with a doctor, nurse practitioner, or physician???s pharmaceutical assistant for ongoing care. If your symptoms become worse or you do not improve as expected and you are unable to reach your usual health care provider, you should return to the Emergency Department. We are available 24 hours a day. ILDA IVERA has been given the following list of patient education materials, prescriptions and follow-up instructions: Follow-up Instructions: With: Address: When: [address]g [address] [place] [address] Business (1) In 3 days 07/01/2024 Comments: Call Dr for diagnosis based follow up With: Address: When: Linda Taylor [address] [facility], [address], [address] [address] Business (1) In 3 days 07/01/2024 Comments: Call Dr for diagnosis based follow up In the event that this physician does not participate in your insurance network, please consult with your insurance company to find a nearby participating provider. Patient Education Materials: Urinary Tract Infection, Adult, Haud-oe-Ohhz A MESSAGE TO ALL PATIENTS REGARDING OPIOIDS PRESCRIPTION OPIOIDS: WHAT YOU NEED TO KNOW Prescription opioids can be used to help relieve nchcsfol-vc-plkaqy pain and are often prescribed following a surgery or injury, or for certain health conditions. These medications can be an important part of the treatment but also come with serious risks. It is important to work with your healthcare provider to make sure you are getting the safest, most effective care. WHAT ARE THE RISKS AND SIDE EFFECTS OF OPIOID USE? Prescription opioids carry serious risks of addiction and overdose, especially with prolonged use. An opioid overdose, often marked by slowed breathing, can cause sudden . The use of prescription opioids can have a number of side effects as well, even when taken as directed: ??? Tolerance???meaning you might need to take more of the medication for the same pain relief ??? Physical dependence???meaning you have symptoms of withdrawal when a medication is stopped ??? Increased sensitivity to pain ??? Constipation ??? Nausea, vomiting, and dry mouth ??? Sleepiness and dizziness ??? Confusion ??? Depression ??? Low levels of testosterone that can result in lower sex drive, energy, and strength ??? Itching and sweating RISKS ARE GREATER WITH: ??? History of drug misuse, substance use disorder, or overdose ??? Mental health conditions (such as depression or anxiety) ??? Sleep apnea ??? Older age (65 years and older) ??? Avoid alcohol while taking prescription opioids. Also, unless specifically advised by your health care provider, medications to avoid include: ??? Benzodiazepines (such as Xanax or Valium) ??? Muscle relaxants (such as Soma or Flexeril) ??? Hypnotics (such as Ambien or Lunesta) ??? Other prescription opioids KNOW YOUR OPTIONS Talk to your health care provider about ways to manage your pain that don???t involve prescription opioids. Some of these options may actually work better and have fewer risks and side effects. Options may include: ??? Pain relievers such as acetaminophen, ibuprofen, and naproxen ??? Some medication that are also used for depression or seizures ??? Physical therapy and exercise ??? Cognitive behavioral therapy, a psychological, goal-directed approach, in which patients learn how to modify physical, behavioral, and emotional triggers of pain and stress. IF YOU ARE PRESCRIBED OPIOIDS FOR PAIN: ??? Never take opioids in greater amounts or more often than prescribed. ??? Follow up with your primary health care provider. o Work together to create a plan on how to manage your pain. o Talk about ways to help manage your pain that don???t involve prescription opioids. o Talk about any and all concerns and side effects. ??? Help prevent misuse and abuse o Never sell or share prescription opioids. o Never use another person???s prescription opioids. ??? Store prescription opioids in a secure place and out of reach of others (this may include visitors, children, friends, and family). ??? Safely dispose of unused prescription opioids: Find your community drug take-back program or your pharmacy mail-back program, or flush them down the toilet, f (more content not included)... Normal [facility] HEMATOLOGYOrdered By: SYSTEM SYSTEM on 06-28-2024 Basophils/100 WBC (Bld) 0.4 % Normal 0.0 - 2.0 % Remisol Heme Basophils/Leukocytes Auto (Bld) [Pure # fraction] 0.0 E9/L Normal 0.0 - 0.2 E9/L Remisol Heme Eosinophils (Bld) [#/Vol] 0.2 E9/L Normal 0.0 - 0.5 E9/L Remisol Heme Eosinophils/100 WBC (Bld) 2.1 % Normal 0.0 - 8.0 % Remisol Heme Erythrocyte distribution width (RBC) [Ratio] 14.1 % Normal 10.9 - 14.2 % Remisol Heme Hematocrit (Bld) [Volume fraction] 35.6 % Normal 34.0 - 46.0 % Remisol Heme Hemoglobin (Bld) [Mass/Vol] 12.2 g/dL Normal 12.0 - 16.0 gm/dL Remisol Heme Lymphocytes (Bld) [#/Vol] 2.7 E9/L Normal 1.0 - 4.0 E9/L Remisol Heme Lymphocytes/100 WBC (Bld) 30.4 % Normal 14.0 - 50.0 % Remisol Heme MCH (RBC) [Entitic mass] 30.2 pg Normal 27.0 - 34.0 pg Remisol Heme MCHC (RBC) [Mass/Vol] 34.2 g/dL Normal 31.4 - 36.0 gm/dL Remisol Heme MCV (RBC) [Entitic vol] 88.2 fL Normal 80.0 - 100.0 fL Remisol Heme Monocytes (Bld) [#/Vol] 0.6 E9/L Normal 0.2 - 1.0 E9/L Remisol Heme Monocytes/100 WBC (Bld) 7.0 % Normal 4.0 - 14.0 % Remisol Heme Neutrophils (Bld) [#/Vol] 5.3 E9/L Normal 2.0 - 7.5 E9/L Remisol Heme Neutrophils/100 WBC (Bld) 60.1 % Normal 36.0 - 75.0 % Remisol Heme Platelet mean volume (Bld) [Entitic vol] 6.7 fL Normal 6.4 - 10.8 fL Remisol Heme Platelets (Bld) [#/Vol] 323.0 E9/L Normal 150.0 - 500.0 E9/L Remisol Heme RBC (Bld) [#/Vol] 4.0 E12/L Low 4.3 - 5.9 E12/L Remisol Heme WBC corrected for nucl RBC Auto (Bld) [#/Vol] 8.8 E9/L Normal 4.0 - 11.0 E9/L Remisol Heme Hep Func Panelon 06-28-2024 Albumin [Mass/Vol] 4.0 g/dL Normal 3.3-5.0 [facility] Comment on above: Performed By: #### 2 [id number] #### [facility] [address] [place] [address] Albumin/Globulin (S) [Mass conc ratio] 1.2 Normal 1.1-2.2 [facility] Comment on above: Performed By: #### 2 [id number] #### [facility] [address] [place] [address] ALP [Catalytic activity/Vol] 96 Int._Unit/L Normal 21-98 [facility] Comment on above: Performed By: #### 2 [id number] #### [facility] [address] [place] [address] ALT No additional P-5'-P [Catalytic activity/Vol] 26 Int._Unit/L Normal 6-46 [facility] Comment on above: Performed By: #### 2 [id number] #### [facility] [address] [place] [address] AST [Catalytic activity/Vol] 18 Int._Unit/L Normal 5-43 [facility] Comment on above: Performed By: #### 2 [id number] #### [facility] [address] [place] [address] Bilirubin [Mass/Vol] 0.3 mg/dL Normal 0.0-1.1 [facility] Comment on above: Performed By: #### 2 [id number] #### [facility] [address] [place] [address] Bilirubin.direct [Mass/Vol] 0.1 mg/dL Normal 0.0-0.4 [facility] Comment on above: Performed By: #### 2 [id number] #### [facility] [address] [place] [address] Bilirubin.indirect [Mass or moles/Vol] 0.2 mg/dL Normal 0.1-0.9 [facility] Comment on above: Performed By: #### 2 [id number] #### [facility] [address] [place] [address] Globulin (S) [Mass/Vol] 3.3 g/dL Normal 1.4-4.0 [facility] Comment on above: Performed By: #### 2 [id number] #### [facility] [address] [place] [address] Protein [Mass/Vol] 7.3 g/dL Normal 6.0-7.8 [facility] Comment on above: Performed By: #### 2 [id number] #### [facility] [address] [place] [address] Lipase Levelon 06-28-2024 Lipase [Catalytic activity/Vol] 11 U/L Low [facility] Comment on above: Performed By: #### 2 [id number] #### [facility] [address] [place] [address] UA with Cult Rflxon 06-28-20 24 Bacteria Auto Ql (U) 1+ /HPF Abnormal Trace [facility] Comment on above: Performed By: #### 4 [id number] #### [facility] [address] [place] [address] Bilirubin Ql (U) Negative Normal Negative [facility] Comment on above: Performed By: #### 4 [id number] #### [facility] [address] [place] [address] Clarity (U) Turbid Abnormal Clear [facility] Comment on above: Performed By: #### 4 [id number] #### [facility] [address] [place] [address] Color (U) Light-Yellow Normal Yellow [facility] Comment on above: Result Comment: Micr oscopic readings are only performed on those samples that meet specific criteria set forth by [facility]. Performed By: #### 4 [id number] #### [facility] [address] [place] [address] Epithelial cells.squamous Auto (Urine sed) [#/Area] >10 Invalid Interpretation Code [facility] Comment on above: Performed By: #### 4 [id number] #### [facility] [address] [place] [address] Glucose Ql (U) Negative Normal Negative [facility] Comment on above: Performed By: #### 4 [id number] #### [facility] [address] [place] [address] Hemoglobin Auto test strip (U) [Mass/Vol] 3+ mg/dL Abnormal Negative [facility] Comment on above: Performed By: #### 4 [id number] #### [facility] [address] [place] [address] Ketones Auto test strip Ql (U) Negative Normal Negative [facility] Comment on above: Performed By: #### 4 [id number] #### [facility] [address] [place] [address] Leukocyte esterase Auto test strip Ql (U) 250 Nico/uL Abnormal Negative [facility] Comment on above: Performed By: #### 4 [id number] #### [facility] [address] [place] [address] Mucus Auto Ql (U) Trace Normal Negative [facility] Comment on above: Performed By: #### 4 [id number] #### [facility] [address] [place] [address] Nitrite Auto test strip Ql (U) Negative Normal Negative [facility] Comment on above: Performed By: #### 4 [id number] #### [facility] [address] [place] [address] pH (U) 6.5 [pH] Invalid Interpretation Code 5.0-9.0 [facility] Comment on above: Performed By: #### 4 [id number] #### [facility] [address] [place] [address] Protein Ql (U) Trace Abnormal Negative [facility] Comment on above: Performed By: #### 4 [id number] #### [facility] [address] [place] [address] RBC Ql (U) 0-3 Normal 0-3 [facility] Comment on above: Performed By: #### 4 [id number] #### [facility] [address] [place] [address] Specific gravity (U) [Rel density] 1.017 Invalid Interpretation Code 1.005-1.030 [facility] Comment on above: Performed By: #### 4 [id number] #### [facility] [address] [place] [address] Urobilinogen (U) [Mass/Vol] Negative Normal Negative [facility] Comment on above: Performed By: #### 4 [id number] #### [facility] [address] [place] [address] WBC Auto (Urine sed) [#/Area] 6-15 Abnormal 0-5 [facility] Comment on above: Performed By: #### 4 [id number] #### [facility] [address] [place] [id number] Type of Urine collection method Clean Catch Normal [facility] Comment on above: Performed By: #### 4 [id number] #### [facility] [address] [place] [address] URINALYSISOrdered By: SYSTEM SYSTEM on 06-28-2024 Bacteria Auto Ql (U) 1+ /HPF Invalid Interpretation Code Trace/HPF [facility] UA Auto SS Bilirubin Ql (U) Negative Normal Negativemg/ d L [facility] UA Auto SS Clarity (U) Turbid *ABN* (06/28/24 12:32 PM) Invalid Interpretation Code Clear [facility] UA Auto SS Color (U) Light-Yellow 1 (06/28/24 12:32 PM) Normal Yellow [facility] UA Auto SS Comment on above: Interpretive Data: M icroscopic readings are only performed on those samples that meet specific criteria set forth by [facility]. Epithelial cells.squamous Auto (Urine sed) [#/Area] >10 graded/HPF Invalid Interpretation Code [facility] UA Auto SS Glucose Ql (U) Negative Normal Negativemg/d L [facility] UA Auto SS Hemoglobin Auto test strip (U) [Mass/Vol] 3+ mg/dL Invalid Interpretation Code Negativemg/d L [facility] UA Auto SS Ketones Auto test strip Ql (U) Negative Normal Negativemg/d L [facility] UA Auto SS Leukocyte esterase Auto test strip Ql (U) 250 Nico/uL Nico/uL Invalid Interpretation Code NegativeLeu/ uL [facility] UA Auto SS Mucus Auto Ql (U) Trace graded/LPF Normal Negati vegrad ed/LPF [facility] UA Auto SS Nitrite Auto test strip Ql (U) Negative Normal Negativemg/d L [facility] UA Auto SS pH (U) 6.5 *NA* (06/28/24 12:32 PM) Invalid Interpretation Code 5.0 - 9.0 [facility] UA Auto SS Protein Ql (U) Trace mg/dL Invalid Interpretation Code Negativemg/d L [facility] UA Auto SS RBC Ql (U) 0-3 graded/HPF Normal 0-3graded/HP F [facility] UA Auto SS Specific gravity (U) [Rel density] 1.017 *NA* (06/28/24 12:32 PM) Invalid Interpretation Code 1.005 - 1.030 [facility] UA Auto SS Urobilinogen (U) [Mass/Vol] Negative Normal Negativemg/d L [facility] UA Auto SS WBC Auto (Urine sed) [#/Area] 6-15 graded/HPF Invalid Interpretation Code 0-5graded/HP F [facility] UA Auto SS URINALYSISOrdered By: Fabricio arauz on 06-28-2024 UA Spec Desc Clean Catch (06/28/24 12:32 PM) Normal [facility] UA Auto SS Work Phone: eGFRon 06-28-2024 eGFR 84 mL/min/1.73 m2 Normal >=59 [facility] Comment on above: Performed By: #### 1 [id number] #### [facility] [address] [place] [address] Family Medicine Office/Clini c Noteon 06-20-2024 Family Medicine Office/Clinic Note Family Medicine Office/Clinic Note Chief Complaint wrist pain HPI Staff 39 year old female presents with left wrist pain symptoms for 4 weeks. 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 Portions of this record may have been created with voice recognition artificial intelligence software, specifically Fixstars, Voyat and or Dragon Ambient Experience. Substitutions may have occurred due to the inherent limitations of voice recognition and artificial intelligence software. Patient is a 39-year-old female who is right-hand dominant presents to [facility], for left wrist and left thumb pain, patient states she had delivered a baby about 4 weeks ago, states the baby was delivered early, but without any complications, states during delivery they had to put on some bed sheets, and she also pulled on some handles on the bed, states she felt a pulling sensation left wrist, still having the pain for 4 weeks, states she is having increased weakness in the left wrist, and the left thumb, states her hand feels fine, she makes a fist she still has pain in the wrist but not her hand. Patient states she had a previous injury to her left wrist when she was much younger, cannot sure was a fracture or sprain. Patient denies any other musculoskeletal pain or injuries, fevers, chills, nausea or vomiting, left hand weakness, radiating pain, or skin redness. Review of Systems PHQ Score Initial Depression Screen Score: 0 SCORE Physical Exam Vitals & Measurements T: 36.6 ???C(Oral) HR: 69(Peripheral) BP: 122/78 SpO2: 98% HT: 62 in HT: 157 cm WT: 99 kg WT: 218.257 lb BMI: 40.16 General: Well developed, well nourished, in no acute distress. Patient does not appear ill or septic. No respiratory distress. Patient answers questions appropriately and in complete sentences. Follows commands appropriately. Head: Normocephalic/atraumatic no upper respiratory infection. Lungs: Normal respiratory effort and clear to auscultation throughout.. No rales, crackles, or decreased breath sounds. Cardio: regular rate and rhythm, no murmur. No chest wall tenderness. Abdomen: soft, nondistended, BS normal and active x4. Denies tenderness with palpation. Musculoskeletal: Right hand dominant. There is soft tissue swelling of the left thumb, most around the base compared to the right thumb base, there is no other swelling, the skin is intact without any redness or ecchymosis. There is thumb base pain on exam. With limited range of motion, worsening pain with palpation. There is no joint effusion, joint stability, crepitus, dislocation, deformity, or fractures. Positive Marjorie sign. No signs of carpal tunnel or ulnar tunnel syndrome. Patient is able to make a fist, less weaker than the right, but she is right-hand dominant. The remaining musculoskeletal exam is within normal limits. Patient is neurovascular intact. Neurologic: Grossly normal Skin: No rashes, ulcerations, or suspicious lesions Lymph Nodes: no lad Mental Status: alert, active Assessment/Plan Left hand imaging for any possible acute findings. No wrist imaging is indicated at this time. Patient was informed of imaging findings read by the radiologist: No displaced fracture or significant posttraumatic complication identified . 39-year-old female is right-hand dominant, presented to [facility], for left wrist tendinitis, secondary to repetitive motion and strengthening her wrist about 4 weeks ago, while in labor and delivery, pulling on some bed sheets railings of the bed during delivery, no complications, patient was placed in a thumb spica for comfort and support, instructed to take [id number] ibuprofen and Tylenol as needed for pain or, given ice therapy instructions, and prefers to follow-up with her primary care provider. 1. Left wrist tendinitis (M77.8: Other enthesopathies, not elsewhere classified) See above Ordered: XR Hand 3+ Views Left 2. BMI 40.0-44.9, adult (Z68.41: Body mass index [BMI] 40.0-44.9, adult) The standard range for ages 18 and older is >=18.5 and < 25 kg/m2. Your BMI today was above this range, this falls in the overweight to obese category and there are medical benefits to weight loss. We can offer counselling, referral, and/or medical support in addressing this problem. Your BMI and weight management will be followed at subsequent visits. Follow-up With When Contact Information Linda Lutz [facility], MED [address], [address] [address]- Additional Instructions: Patient Education BMI for Adults Tendinitis, Jfst-co-Fmsf Problem List/Past Medical History Ongoing Androgen level above reference range B12 deficiency anemia Bipolar disorder BMI 39.0-39.9,adult BMI 40.0-44.9, adult Current non-smoker Currently Depressive dis (more content not included)... Normal [facility] Comment on above: Result Comment: Elec tronically Signed By: CHAMPAGNE PA-C, GHISLAINE\.br\Date and Time Signed: 06/20/24 11:11 EST XR Hand 3+ Views Lefton 05-24 XR Hand 3+ Views Left Exam Date/Time: 06/19/2024 17:45 EST Reason for Exam: Pain, Traumatic Report IMPRESSION: NO DISPLACED FRACTURE OR SIGNIFICANT POSTTRAUMATIC COMPLICATION IDENTIFIED. EXAM: XR Hand 3+ Views Left DATE: 06/19/2024 5:44 PM CLINICAL HISTORY: Pain, Traumatic. COMPARISON: Complete skeletal survey 07/05/2023. TECHNIQUE: PA, lateral, and oblique radiographs of the left hand were obtained. FINDINGS: There is no fracture, significant degenerative changes, dislocation, worrisome bone destruction, radiodense foreign bodies, or other posttraumatic complication identified. Ordering Provider: GHISLAINE CHAMPAGNE FINAL REPORT Dictated: 06/20/2024 6:14 am Earl Summers MD Signed (Electronic Signature): 06/20/2024 6:14 am Signed by: Earl Summers MD Transcribed by: GLENN Technologist: BOBO Technical Comments Radiation Dose: Ka,r in mGy = na DAP = na Normal [facility] CBC w/ Auto Diffon 4 Basophils/100 WBC (Bld) 0.4 % Normal 0.0-2.0 [facility] Comment on above: Performed By: #### 2 [id number] #### [facility] [address] [place] [address] Basophils/Leukocytes Auto (Bld) [Pure # fraction] 0.0 E9/L Normal 0.0-0.2 [facility] Comment on above: Performed By: #### 2 [id number] #### [facility] [address] [place] [address] Eosinophils (Bld) [#/Vol] 0.3 E9/L Normal 0.0-0.5 [facility] Comment on above: Performed By: #### 2 [id number] #### [facility] [address] [place] [address] Eosinophils/100 WBC (Bld) 3.0 % Normal 0.0-8.0 [facility] Comment on above: Performed By: #### 2 [id number] #### [facility] [address] [place] [address] Erythrocyte distribution width (RBC) [Ratio] 14.2 % Normal 10.9-14.2 [facility] Comment on above: Performed By: #### 2 [id number] #### [facility] [address] [place] [address] Hematocrit (Bld) [Volume fraction] 37.4 % Normal 34.0-46.0 [facility] Comment on above: Performed By: #### 2 [id number] #### [facility] [address] [place] [address] Hemoglobin (Bld) [Mass/Vol] 12.7 g/dL Normal 12.0-16.0 [facility] Comment on above: Performed By: #### 2 [id number] #### [facility] [address] [place] [address] Lymphocytes (Bld) [#/Vol] 3.3 E9/L Normal 1.0-4.0 [facility] Comment on above: Performed By: #### 2 [id number] #### [facility] [address] [place] [address] Lymphocytes/100 WBC (Bld) 35.7 % Normal 14.0-50.0 [facility] Comment on above: Performed By: #### 2 [id number] #### [facility] [address] [place] [address] MCH (RBC) [Entitic mass] 29.8 pg Normal 27.0-34.0 [facility] Comment on above: Performed By: #### 2 [id number] #### [facility] [address] [place] [address] MCHC (RBC) [Mass/Vol] 33.9 g/dL Normal 31.4-36.0 [facility] Comment on above: Performed By: #### 2 [id number] #### [facility] [address] [place] [address] MCV (RBC) [Entitic vol] 88.0 fL Normal 80.0-100.0 [facility] Comment on above: Performed By: #### 2 [id number] #### [facility] [address] [place] [address] Monocytes (Bld) [#/Vol] 0.6 E9/L Normal 0.2-1.0 [facility] Comment on above: Performed By: #### 2 [id number] #### [facility] [address] [place] [address] Neutrophils (Bld) [#/Vol] 5.1 E9/L Normal 2.0-7.5 [facility] Comment on above: Performed By: #### 2 [id number] #### [facility] [address] [place] [address] Neutrophils/100 WBC (Bld) 54.3 % Normal 36.0-75.0 [facility] Comment on above: Performed By: #### 2 [id number] #### [facility] [address] [place] [address] Platelet 400.0 E9/L Normal 150.0-500.0 [facility] Comment on above: Performed By: #### 2 [id number] #### [facility] [address] [place] [address] Platelet mean volume (Bld) [Entitic vol] 6.4 fL Normal 6.4-10.8 [facility] Comment on above: Performed By: #### 2 [id number] #### [facility] [address] [place] [address] RBC (Bld) [#/Vol] 4.3 E12/L Normal 4.3-5.9 [facility] Comment on above: Performed By: #### 2 [id number] #### [facility] [address] [place] [address] WBC corrected for nucl RBC Auto (Bld) [#/Vol] 9.4 E9/L Normal 4.0-11.0 [facility] Comment on above: Performed By: #### 2 [id number] #### [facility] [address] [place] [address] CHEMISTRYOrdered By: Jaycob Tavera on 06-19-2024 Cobalamin (Vitamin B12) [Mass/Vol] 735 pg/mL Normal 50 - 1500 pg/mL Remisol Chem Ferritin [Mass/Vol] 128 ng/mL Normal 11 - 307 ng/mL [facility] Chem Folate [Mass/Vol] ng/mL Normal >=6.7ng/mL Remisol Chem CHEMISTRYOrdered By: SYSTEM SYSTEM on 06-19-2024 Iron [Mass/Vol] 59 ug/dL Normal 35 - 153 mcg/dL Remisol Chem Iron binding capacity [Mass/Vol] 395 ug/dL Normal 250 - 400 mcg/dL Remisol Chem Iron saturation [Mass fraction] 15 % Low 20 - 50 % Remisol Chem Transferrin [Mass/Vol] 282 mg/dL Normal 200 - 370 mg/dL Remisol Chem Ferritinon 06-19-2024 Ferritin [Mass/Vol] 128 ng/mL Normal 11-307 [facility] Comment on above: Performed By: #### 2 [id number] #### [facility] [address] [place] [address] Folateon 06-19-2024 Folate [Mass/Vol] ng/mL Normal >=6.7 [facility] Comment on above: Performed By: #### 2 [id number] #### [facility] [address] [place] [address] HEMATOLOGYOrdered By: SYSTEM SYSTEM on 06-19-2024 Basophils/100 WBC (Bld) 0.4 % Normal 0.0 - 2.0 % Remisol Heme Basophils/Leukocytes Auto (Bld) [Pure # fraction] 0.0 E9/L Normal 0.0 - 0.2 E9/L Remisol Heme Eosinophils (Bld) [#/Vol] 0.3 E9/L Normal 0.0 - 0.5 E9/L Remisol Heme Eosinophils/100 WBC (Bld) 3.0 % Normal 0.0 - 8.0 % Remisol Heme Erythrocyte distribution width (RBC) [Ratio] 14.2 % Normal 10.9 - 14.2 % Remisol Heme Hematocrit (Bld) [Volume fraction] 37.4 % Normal 34.0 - 46.0 % Remisol Heme Hemoglobin (Bld) [Mass/Vol] 12.7 g/dL Normal 12.0 - 16.0 gm/dL [facility] Heme Lymphocytes (Bld) [#/Vol] 3.3 E9/L Normal 1.0 - 4.0 E9/L Remisol Heme Lymphocytes/100 WBC (Bld) 35.7 % Normal 14.0 - 50.0 % Remisol Heme MCH (RBC) [Entitic mass] 29.8 pg Normal 27.0 - 34.0 pg Remisol Heme MCHC (RBC) [Mass/Vol] 33.9 g/dL Normal 31.4 - 36.0 gm/dL Remisol Heme MCV (RBC) [Entitic vol] 88.0 fL Normal 80.0 - 100.0 fL Rem[facility] Heme Monocytes (Bld) [#/Vol] 0.6 E9/L Normal 0.2 - 1.0 E9/L Remisol Heme Monocytes/100 WBC (Bld) 6.6 % Normal 4.0 - 14.0 % Remisol Heme Neutrophils (Bld) [#/Vol] 5.1 E9/L Normal 2.0 - 7.5 E9/L Rem[facility] Heme Neutrophils/100 WBC (Bld) 54.3 % Normal 36.0 - 75.0 % Rem[facility] Heme Platelet 400.0 E9/L Normal 150.0 - 500.0 E9/L Remisol Heme Platelet mean volume (Bld) [Entitic vol] 6.4 fL Normal 6.4 - 10.8 fL Remisol Heme RBC (Bld) [#/Vol] 4.3 E12/L Normal 4.3 - 5.9 E12/L Remisol Heme WBC corrected for nucl RBC Auto (Bld) [#/Vol] 9.4 E9/L Normal 4.0 - 11.0 E9/L Remisol Heme Ironon 06-19-2024 Iron [Mass/Vol] 59 microgram/dL Normal 35-153 [facility] Comment on above: Performed By: #### 2 [id number] #### [facility] [address] [place] [address] Iron Saturationon 06-19-2024 Iron binding capacity [Mass/Vol] 395 microgram/dL Normal 250-400 [facility] Comment on above: Performed By: #### 2 [id number] #### [facility] [address] [place] [address] Iron saturation [Mass fraction] 15 % Low 20-50 [facility] Comment on above: Performed By: #### 2 [id number] #### [facility] [address] [place] [address] Transferrinon 06-19-2024 Transferrin [Mass/Vol] 282 mg/dL Normal 200-370 [facility] Comment on above: Performed By: #### 2 [id number] #### [facility] [address] [place] [address] Vit B12on 06-19-2024 Cobalamin (Vitamin B12) [Mass/Vol] 735 pg/mL Normal 50-1500 [facility] Comment on above: Performed By: #### 2 [id number] #### [facility] [address] [place] [address] ED Note-Physicianon 06-01-20 24 ED Note-Physician ED Note-Physician Basic Information Time Seen: Lucila Booker PA-C. 05/30/2024 15:11 Chief Complaint pt c\o headache and productive cough since yesterday. states took BP at home and was elevated. 5 days post History of Present Illness This patient presents to the emergency department with concern for eclampsia. She states she called her OBs office and they requested she come in and be evaluated. The patient denies any urinary burning frequency or urgency. She has had no nausea or vomiting. She is concerned she might have mastitis with some redness of both breasts around the nipples. She states she was trying to breast-feed but was having difficulty with the baby latching on. At the last denture packer visit, they were concerned that the baby needs more intake. The mom at that time decided to formula feed the child so she can accurately measure how much he is taking in. The mom has no plans to go back to attempts at breast-feeding. The mom was also concerned because approximately 10 days ago she tested positive for COVID. She states she still has a little bit of a nonproductive cough. She has no known sick contacts, but does have other children at home that attends school. She denies any swelling. She denies any chest pain. Review of Systems Constitutional: Denies weight loss, fevers, chills, sweats, malaise Eyes: Denies visual changes, eye pain, double vision, scotomas, floaters ENT: Denies runny nose, epistaxis, sinus pain, ear pain, ringing in ears, tooth ache, sore throat, pain with swallowing Cardiovascular: Denies chest pain, shortness of breath, orthopnea, edema, palpitations, loss of consciousness, claudication Respiratory: Denies cough, sputum production, wheezing, hemoptysis, shortness of breath, dyspnea on exertion Gastrointestinal: Denies abdominal pain, unintentional weight loss, difficulty swallowing, indigestion, bloating, cramping, loss of appetite, nausea, vomiting, diarrhea, constipation, hematochezia, melena Genitourinary: Denies any incontinence of urine, dysuria, hematuria, nocturia, polyuria, hesitancy, frequency, urgency, burning Musculoskeletal: Denies joint pain, morning stiffness, joint swelling, decreased range of motion, crepitus Integumentary: Denies any pruritus, rashes, lesions, wounds, petechiae. + Redness of both breasts around the nipples Neurologic: Denies any changes in sight, smell, hearing, taste, seizures, headache, paresthesia, numbness, weakness, balance disturbance Psychiatric denies any depression, change in sleep patterns, anxiety, difficulty concentrating, paranoia, anhedonia, lack of energy, hardeep Hematologic/lymphatic: Denies any purpura, petechiae, excessive bleeding, bruising Physical Exam Vitals & Measurements T: 36.9 ???C(Oral) HR: 74(Monitored) RR: 16 BP: 129/87 SpO2: 99% HT: 157 cm WT: 102.6 kg BMI: 41.62 Vital signs and nursing notes reviewed. General: Awake, alert, NAD. HEENT: Head is normocephalic, atraumatic. PERRL. EOMI. Sclerae are anicteric. External ears are normal. TMs are intact bilaterally. Canals are clear bilaterally. Nares are patent bilaterally. Oral mucosa is pink and moist. No lesions noted. Tongue protrudes in midline. Uvula rises with phonation. Neck is supple, no no palpable adenopathy. No JVD. Trachea is midline. Thorax: Symmetrical rise and fall. The breasts bilaterally have some induration around the areola Lungs: Clear to auscultation throughout all [place], no wheezes, no crackles Heart: Regular rate and rhythm. No murmur, gallop, or rub Abdomen: No tenderness on palpation. Bowel sounds are present active and normal. No organomegaly. No palpable masses. No CVA tenderness. Extremities: Motor sensory pulses intact x4 extremities. No lower extremity edema. Skin: No lesions, rashes, ulcerations. No bruising or petechiae. Color appropriate, warm and dry Neuro: No oriented x3, no focal neuro deficits Psych: Mood and affect are normal Medical Decision Making MEDICAL DECISION MAKING Number and Complexity of Problems Differential Diagnosis: eclampsia, uncontrolled hypertension, mastitis MDM Data External documents reviewed: Not applicable My EKG interpretation: Noted in chart if applicable My CT interpretation: Noted in chart if applicable My X-ray interpretation: Noted in chart if applicable My Ultrasound interpretation: Not applicable Decision rules/scores evaluated: Noted in chart if applicable Discussed with: Dr. Hooks, HANGAR ATTENDANT Treatment and Disposition ED Course: Patient was interviewed and examined. The appropriate ER workup was initiated. White blood count 8.6, hemoglobin 10.8, hematocrit 31.3, platelets 360. Sodium 141, potassium 3.9, chloride of 109, CO2 of 27, BUN of 12, creatinine 0.6, glucose 83, calcium 8.9. Remainder the CMP remarkable only for mildly elevated alk phos at 143. UA is 2+ blood, 21-30 RBCs otherwise unremarkable. Rapid strep, influenza A and B, and rapid COVID were all negative. Chest x-ra (more content not included)... Normal [facility] Comment on above: Result Comment: Elec tronically Signed By: Lucila Booker PA-C\.br\Date and Time Signed: 05/30/24 18:35 EST\.br\Electronically Co-Signed By: Markus Elkins DO\.vanessa\Date and Time Co-Signed: 06/01/24 07:13 EST Grp A Strp PCRon 05-31-2024 Group A Strep Negative Normal Negative [facility] Comment on above: Order Comment: Order Added on by Discern Rule. Result Comment: Test ing performed using DNA amplification. Performed By: #### 1 [id number] #### [facility] [address] [place] [address] Grp A Strp Intrl Ctrl Pass Normal [facility] Comment on above: Order Comment: Order Added on by Discern Rule. Performed By: #### 1 [id number] #### [facility] [address] [place] [address] XR Chest 2 Viewson XR Chest 2 Views Exam Date/Time: 05/30/2024 16:55 EST Reason for Exam: Cough Report IMPRESSION: NO RADIOGRAPHIC EVIDENCE OF ACUTE INTRATHORACIC PROCESS. EXAMINATION: XR Chest 2 Views HISTORY: Cough TECHNIQUE: Frontal and lateral views of the chest. COMPARISON: 05/29/2023 FINDINGS: Cardiomediastinal silhouette is within normal limits. No pneumothorax, pleural effusion, or consolidation. No acute osseous abnormality. Ordering Provider: Lucila Booker FINAL REPORT Dictated: 05/31/2024 7:15 am Roderick Blanca DO Signed (Electronic Signature): 05/31/2024 7:15 am Signed by: Roderick Blanca DO Transcribed by: GLENN Technologist: BRICE Technical Comments Radiation Dose: Ka,r in mGy = na DAP = na Normal [facility] BMPon 05-30-2024 Anion gap [Moles/Vol] 11 mmol/L Normal 6-16 [facility] Comment on above: Performed By: #### 2 [id number] #### [facility] [address] [place] [address] Calcium [Mass/Vol] 8.9 mg/dL Normal 8.9-11.1 [facility] Comment on above: Performed By: #### 2 [id number] #### [facility] [address] [place] [address] Chloride [Moles/Vol] 107 mmol/L Normal 101-111 [facility] Comment on above: Performed By: #### 2 [id number] #### [facility] [address] [place] [address] CO2 [Moles/Vol] 27 mmol/L Normal 21-31 [facility] Comment on above: Performed By: #### 2 [id number] #### [facility] [address] [place] [address] Creatinine [Mass/Vol] 0.6 mg/dL Normal 0.5-1.3 [facility] Comment on above: Performed By: #### 2 [id number] #### [facility] [address] [place] [address] Glucose [Mass/Vol] 83 mg/dL Normal 55-199 [facility] Comment on above: Performed By: #### 2 [id number] #### [facility] [address] [place] [address] Potassium [Moles/Vol] 3.9 mmol/L Normal 3.5-5.3 [facility] Comment on above: Performed By: #### 2 [id number] #### [facility] [address] [place] [address] Sodium [Moles/Vol] 141 mmol/L Normal 135-145 [facility] Comment on above: Performed By: #### 2 [id number] #### [facility] [address] [place] [address] Urea nitrogen [Mass/Vol] 12 mg/dL Normal 5-21 [facility] Comment on above: Performed By: #### 2 [id number] #### [facility] [address] [place] [address] Urea nitrogen/Creatinine [Mass ratio] 20 No Units Normal 10-20 [facility] Comment on above: Performed By: #### 2 [id number] #### [facility] [address] [place] [address] CBC w/ Auto Diffon 4 Basophils/100 WBC (Bld) 0.2 % Normal 0.0-2.0 [facility] Comment on above: Performed By: #### 2 [id number] #### [facility] [address] [place] [address] Basophils/Leukocytes Auto (Bld) [Pure # fraction] 0.0 E9/L Normal 0.0-0.2 [facility] Comment on above: Performed By: #### 2 [id number] #### [facility] [address] [place] [address] Eosinophils (Bld) [#/Vol] 0.2 E9/L Normal 0.0-0.5 [facility] Comment on above: Performed By: #### 2 [id number] #### [facility] [address] [place] [address] Eosinophils/100 WBC (Bld) 2.2 % Normal 0.0-8.0 [facility] Comment on above: Performed By: #### 2 [id number] #### [facility] [address] [place] [address] Erythrocyte distribution width (RBC) [Ratio] 14.9 % High 10.9-14.2 [facility] Comment on above: Performed By: #### 2 [id number] #### [facility] [address] [place] [address] Hematocrit (Bld) [Volume fraction] 31.3 % Low 34.0-46.0 [facility] Comment on above: Performed By: #### 2 [id number] #### [facility] [address] [place] [address] Hemoglobin (Bld) [Mass/Vol] 10.8 g/dL Low 12.0-16.0 [facility] Comment on above: Performed By: #### 2 [id number] #### [facility] [address] [place] [address] Lymphocytes (Bld) [#/Vol] 2.5 E9/L Normal 1.0-4.0 [facility] Comment on above: Performed By: #### 2 [id number] #### [facility] [address] [place] [address] Lymphocytes/100 WBC (Bld) 28.9 % Normal 14.0-50.0 [facility] Comment on above: Performed By: #### 2 [id number] #### [facility] [address] [place] [address] MCH (RBC) [Entitic mass] 30.9 pg Normal 27.0-34.0 [facility] Comment on above: Performed By: #### 2 [id number] #### [facility] [address] [place] [address] MCHC (RBC) [Mass/Vol] 34.6 g/dL Normal 31.4-36.0 [facility] Comment on above: Performed By: #### 2 [id number] #### [facility] [address] [place] [address] MCV (RBC) [Entitic vol] 89.2 fL Normal 80.0-100.0 [facility] Comment on above: Performed By: #### 2 [id number] #### [facility] [address] [place] [address] Monocytes (Bld) [#/Vol] 0.8 E9/L Normal 0.2-1.0 [facility] Comment on above: Performed By: #### 2 [id number] #### [facility] [address] [place] [address] Neutrophils (Bld) [#/Vol] 5.1 E9/L Normal 2.0-7.5 [facility] Comment on above: Performed By: #### 2 [id number] #### [facility] [address] [place] [address] Neutrophils/100 WBC (Bld) 59.7 % Normal 36.0-75.0 [facility] Comment on above: Performed By: #### 2 [id number] #### [facility] [address] [place] [address] Platelet mean volume (Bld) [Entitic vol] 6.6 fL Normal 6.4-10.8 [facility] Comment on above: Performed By: #### 2 [id number] #### [facility] [address] [place] [address] Platelets (Bld) [#/Vol] 368.0 E9/L Normal 150.0-500.0 [facility] Comment on above: Performed By: #### 2 [id number] #### [facility] [address] [place] [address] RBC (Bld) [#/Vol] 3.5 E12/L Low 4.3-5.9 [facility] Comment on above: Performed By: #### 2 [id number] #### [facility] [address] [place] [address] WBC corrected for nucl RBC Auto (Bld) [#/Vol] 8.6 E9/L Normal 4.0-11.0 [facility] Comment on above: Performed By: #### 2 [id number] #### [facility] [address] [place] [address] CHEMISTRYOrdered By: SYSTEM SYSTEM on 05-30-2024 Albumin [Mass/Vol] 3.3 g/dL Normal 3.3 - 5.0 gm/dL Remisol Chem Albumin/Globulin [Mass ratio] 0.9 {ratio} Low 1.1 - 2.2 Rem[facility] Chem ALP [Catalytic activity/Vol] 143 [iU]/d High 21 - 98 Int._Unit/L Remisol Chem ALT No additional P-5'-P [Catalytic activity/Vol] 29 [iU]/d Normal 6 - 46 Int._Unit/L [facility] Chem Anion gap [Moles/Vol] 11 mmol/L Normal 6 - 16 mEq/L R emisol Chem AST [Catalytic activity/Vol] 21 [iU]/d Normal 5 - 43 Int._Unit/L [facility] Chem Bilirubin [Mass/Vol] 0.3 mg/dL Normal 0.0 - 1 .1 mg/dL Remisol Chem Bilirubin.direct [Mass/Vol] 0.1 mg/dL Normal 0.0 - 0.4 mg/dL Remisol Chem Bilirubin.indirect [Mass or moles/Vol] 0.2 mg/dL Normal 0.1 - 0.9 mg/dL [facility] Chem Calcium [Mass/Vol] 8.9 mg/dL Normal 8.9 - 11. 1 mg/dL [facility] Chloride [Moles/Vol] 107 mmol/L Normal 101 - 1 11 mmol/L [facility] Chem CO2 [Moles/Vol] 27 mmol/L Normal 21 - 31 mmol/L [facility] Chem Creatinine [Mass/Vol] 0.6 mg/dL Normal 0.5 - 1.3 mg/dL [facility] Chem eGFR 118 mL/min/1.73 m2 Normal >=59mL/mi n/1 .73 m2 [facility] Chem Globulin (S) [Mass/Vol] 3.5 g/dL Normal 1.4 - 4.0 gm/dL [facility] Chem Glucose [Mass/Vol] 83 mg/dL Normal 55 - 199 mg/dL [facility] Chem Potassium [Moles/Vol] 3.9 mmol/L Normal 3.5 - 5.3 mmol/L Remisol Chem Protein [Mass/Vol] 6.8 g/dL Normal 6.0 - 7.8 gm/dL [facility] Chem Sodium [Moles/Vol] 141 mmol/L Normal 135 - 145 mmol/L [facility] Chem Urea nitrogen [Mass/Vol] 12 mg/dL Normal 5 - 21 mg/dL [facility] Chem Urea nitrogen/Creatinine [Mass ratio] 20 mg/mg Normal 10 - 20 Remisol Chem ED Clinical Summaryon 2023 ED Clinical Summary ED Clinical Summary [place] [id number] ED Clinical Summary Person Information Name: ILDA VIERA Chris/[facility] Age: 39 Years : 1985 Sex: Female Language: Icelandic PCP: Linda Lutz Marital Status: Phone: [phone] Visit Id: Visit Reason: Blood pressure check; Cough; Headache; HIGH BP Speciality: Acuity: 3 Enc Type: Emergency Med Service: Emergency Arrival: 05/30/2024 14:40:50 Discharge: 05/30/2024 17:38:57 LOS: 000 02:58 Checkin: 05/30/2024 14:40:50 Checkout: 05/30/2024 17:38:57 Dispo Type: Home (Routine DC) EVENTS: Event Name Event Status Request Date/Time Start Date/Time Complete Date/Time Arrive Complete 05/30/2024 14:40:50 05/30/2024 14:40:50 05/30/2024 14:40:50 Document Home Meds Request 05/30/2024 14:40:50 Triage Complete 05/30/2024 14:40:50 05/30/2024 14:52:17 05/30/2024 14:52:17 Patient Care Request 05/30/2024 14:52:18 Patient Isolation Request 05/30/2024 14:52:18 Bed Assign Complete 05/30/2024 14:53:20 05/30/2024 14:53:20 05/30/2024 14:53:20 Dr Exam Complete 05/30/2024 14:53:20 05/30/2024 15:11:39 05/30/2024 15:11:39 RN Exam Complete 05/30/2024 14:53:20 05/30/2024 15:03:12 05/30/2024 15:03:12 Registration Complete 05/30/2024 15:11:39 05/30/2024 15:18:20 05/30/2024 15:18:20 Dr Exam Complete 05/30/2024 15:13:02 05/30/2024 15:13:02 05/30/2024 15:13:02 Reg Complete Request 05/30/2024 15:18:20 Reg Bed Request Complete 05/30/2024 15:18:20 05/30/2024 15:18:20 05/30/2024 15:18:20 Pending Labs Complete 05/30/2024 15:29:05 05/30/2024 16:32:12 Lab Complete 05/30/2024 15:29:05 05/30/2024 16:32:12 Swab Complete 05/30/2024 15:29:05 05/30/2024 16:12:27 Pending Labs Complete 05/30/2024 16:05:26 05/30/2024 16:05:26 05/30/2024 16:32:12 Lab Complete 05/30/2024 16:05:26 05/30/2024 16:05:26 05/30/2024 16:32:12 Pending Labs Inlab 05/30/2024 16:12:27 05/30/2024 16:12:27 X-Ray Complete 05/30/2024 16:40:59 05/30/2024 16:41:46 05/30/2024 16:55:12 Wet Read Request 05/30/2024 16:55:12 Discharge Complete 05/30/2024 17:31:11 05/30/2024 17:39:03 05/30/2024 17:39:03 Transfer Complete 05/30/2024 17:39:03 05/30/2024 17:39:03 05/30/2024 17:39:03 ADDRESS: [address] [place] [address] [address] [facility] [phone] PHYS DOC NOTES: MEDICAL INFORMATION: Prescriptions Given: New Medications [id number] [address] [facility] [place] [id number], [phone] cephalexin (cephalexin 500 mg Cap) 1 Capsules By Mouth 4 times a day for 10 Days. Refills: 0. Medications to Continue with No Changes Other Medications albuterol (Albuterol (Eqv-ProAir HFA) 90 mcg/inh inhalation aerosol) 2 Puffs Inhalation every 4 hours. Refills: 0. cholecalciferol (cholecalciferol 50,000 intl units oral capsule) 1 Capsules By Mouth every 7 days. Refills: 1. ferrous sulfate (Slow Iron) fluticasone nasal (fluticasone 0.05 mg/inh Nasal [place]) 1 Sprays Nasal Inhalation every day as needed Allergy symptoms. lamotrigine (lamotrigine 150 mg Tab) 2 Tablets By Mouth every day. Refills: 5. levothyroxine (Levoxyl 137 mcg (0.137 mg) oral tablet) 1 Tablets By Mouth every day. metformin (metformin 1000 mg Tab) 1 Tablets By Mouth 2 times a day. Refills: 3. metoprolol (metoprolol succinate 50 mg ER Tab) 2 times a day. multivitamin, (M-Jacinta Plus oral tablet) ondansetron (ondansetron 4 mg Tab) 1 Tablets By Mouth every 8 hours as needed Nausea/Vomiting. PATIENT EDUCATION INFORMATION: Instructions: Strep Throat, Adult, Uzuw-tc-Wsry; Pharyngitis, Fsez-dl-Uhpg Follow up: With: Address: When: Mike Lawson, [address] [place] [address] Business (1) In 3 days 06/02/2024 With: Address: When: Linda Taylor [address], [address], [address] [address] Business (1) In 3 days 06/02/2024 DIAGNOSIS: 1:Mastitis; 2:Pharyngitis Normal [facility] ED Patient Summaryon 024 ED Patient Summary ED Patient Summary [address] [address] Patient Discharge Instructions Person Information Name: ILDA VIERA Age: 39 Years Arrival Date: 05/30/2024 14:40:50 Discharge Diagnosis: 1:Mastitis; 2:Pharyngitis Primary Care Physician: Linda Lutz Provider Information Primary Provider: Markus Elkins DO Advanced Curriculum Assistant:None The exam and treatment you received in the Emergency Department were for an urgent problem and are not intended as complete care. It is important that you follow up with a doctor, nurse practitioner, or physician???s pharmaceutical assistant for ongoing care. If your symptoms become worse or you do not improve as expected and you are unable to reach your usual health care provider, you should return to the Emergency Department. We are available 24 hours a day. ILDA VIERA has been given the following list of patient education materials, prescriptions and follow-up instructions: Follow-up Instructions: With: Address: When: Neva Pearson [address], Mike D, [address] [place] [address] Business (1) In 3 days 06/02/2024 With: Address: When: Linda Taylor [address], [address], [address] [address] Business (1) In 3 days 06/02/2024 In the event that this physician does not participate in your insurance network, please consult with your insurance company to find a nearby participating provider. Patient Education Materials: Strep Throat, Adult, Yddy-hl-Wmow; Pharyngitis, Uhwo-nn-Goms A MESSAGE TO ALL PATIENTS REGARDING OPIOIDS PRESCRIPTION OPIOIDS: WHAT YOU NEED TO KNOW Prescription opioids can be used to help relieve sypgkrpy-iq-uuuqmy pain and are often prescribed following a surgery or injury, or for certain health conditions. These medications can be an important part of the treatment but also come with serious risks. It is important to work with your healthcare provider to make sure you are getting the safest, most effective care. WHAT ARE THE RISKS AND SIDE EFFECTS OF OPIOID USE? Prescription opioids carry serious risks of addiction and overdose, especially with prolonged use. An opioid overdose, often marked by slowed breathing, can cause sudden . The use of prescription opioids can have a number of side effects as well, even when taken as directed: ??? Tolerance???meaning you might need to take more of the medication for the same pain relief ??? Physical dependence???meaning you have symptoms of withdrawal when a medication is stopped ??? Increased sensitivity to pain ??? Constipation ??? Nausea, vomiting, and dry mouth ??? Sleepiness and dizziness ??? Confusion ??? Depression ??? Low levels of testosterone that can result in lower sex drive, energy, and strength ??? Itching and sweating RISKS ARE GREATER WITH: ??? History of drug misuse, substance use disorder, or overdose ??? Mental health conditions (such as depression or anxiety) ??? Sleep apnea ??? Older age (65 years and older) ??? Avoid alcohol while taking prescription opioids. Also, unless specifically advised by your health care provider, medications to avoid include: ??? Benzodiazepines (such as Xanax or Valium) ??? Muscle relaxants (such as Soma or Flexeril) ??? Hypnotics (such as Ambien or Lunesta) ??? Other prescription opioids KNOW YOUR OPTIONS Talk to your health care provider about ways to manage your pain that don???t involve prescription opioids. Some of these options may actually work better and have fewer risks and side effects. Options may include: ??? Pain relievers such as acetaminophen, ibuprofen, and naproxen ??? Some medication that are also used for depression or seizures ??? Physical therapy and exercise ??? Cognitive behavioral therapy, a psychological, goal-directed approach, in which patients learn how to modify physical, behavioral, and emotional triggers of pain and stress. IF YOU ARE PRESCRIBED OPIOIDS FOR PAIN: ??? Never take opioids in greater amounts or more often than prescribed. ??? Follow up with your primary health care provider. o Work together to create a plan on how to manage your pain. o Talk about ways to help manage your pain that don???t involve prescription opioids. o Talk about any and all concerns and side effects. ??? Help prevent misuse and abuse o Never sell or share prescription opioids. o Never use another person???s prescription opioids. ??? Store prescription opioids in a secure place and out of reach of others (this may include visitors, children, friends, and family). ??? Safely dispose of unused prescription opioids: Find your community drug take-back program or your pharmacy mail-back program, or flush them down the toilet, following guidance from the Food and Drug Administration (www.fda.gov/Drugs/Resour cesFor (more content not included)... Normal [facility] HEMATOLOGYOrdered By: SYSTEM SYSTEM on 05-30-2024 Basophils/100 WBC (Bld) 0.2 % Normal 0.0 - 2.0 % Remisol Heme Basophils/Leukocytes Auto (Bld) [Pure # fraction] 0.0 E9/L Normal 0.0 - 0.2 E9/L Remisol Heme Eosinophils (Bld) [#/Vol] 0.2 E9/L Normal 0.0 - 0.5 E9/L Remisol Heme Eosinophils/100 WBC (Bld) 2.2 % Normal 0.0 - 8.0 % Remisol Heme Erythrocyte distribution width (RBC) [Ratio] 14.9 % High 10.9 - 14.2 % Remisol Heme Hematocrit (Bld) [Volume fraction] 31.3 % Low 34.0 - 46.0 % Remisol Heme Hemoglobin (Bld) [Mass/Vol] 10.8 g/dL Low 12.0 - 16.0 gm/dL Remisol Heme Lymphocytes (Bld) [#/Vol] 2.5 E9/L Normal 1.0 - 4.0 E9/L Remisol Heme Lymphocytes/100 WBC (Bld) 28.9 % Normal 14.0 - 50.0 % Remisol Heme MCH (RBC) [Entitic mass] 30.9 pg Normal 27.0 - 34.0 pg Remisol Heme MCHC (RBC) [Mass/Vol] 34.6 g/dL Normal 31.4 - 36.0 gm/dL Remisol Heme MCV (RBC) [Entitic vol] 89.2 fL Normal 80.0 - 100.0 fL Remisol Heme Monocytes (Bld) [#/Vol] 0.8 E9/L Normal 0.2 - 1.0 E9/L Remisol Heme Monocytes/100 WBC (Bld) 9.0 % Normal 4.0 - 14.0 % Remisol Heme Neutrophils (Bld) [#/Vol] 5.1 E9/L Normal 2.0 - 7.5 E9/L Remisol Heme Neutrophils/100 WBC (Bld) 59.7 % Normal 36.0 - 75.0 % Remisol Heme Platelet mean volume (Bld) [Entitic vol] 6.6 fL Normal 6.4 - 10.8 fL Remisol Heme Platelets (Bld) [#/Vol] 368.0 E9/L Normal 150.0 - 500.0 E9/L Remisol Heme RBC (Bld) [#/Vol] 3.5 E12/L Low 4.3 - 5.9 E12/L [facility] Heme WBC corrected for nucl RBC Auto (Bld) [#/Vol] 8.6 E9/L Normal 4.0 - 11.0 E9/L Remisol Heme Hep Func Panelon 05-30-2024 Albumin [Mass/Vol] 3.3 g/dL Normal 3.3-5.0 [facility] Comment on above: Performed By: #### 2 [id number] #### [facility] [address] [place] [address] Albumin/Globulin (S) [Mass conc ratio] 0.9 Low 1.1-2.2 [facility] Comment on above: Performed By: #### 2 [id number] #### [facility] [address] [place] [address] ALP [Catalytic activity/Vol] 143 Int._Unit/L High 21-98 [facility] Comment on above: Performed By: #### 2 [id number] #### [facility] [address] [place] [address] ALT No additional P-5'-P [Catalytic activity/Vol] 29 Int._Unit/L Normal 6-46 [facility] Comment on above: Performed By: #### 2 [id number] #### [facility] [address] [place] [address] AST [Catalytic activity/Vol] 21 Int._Unit/L Normal 5-43 [facility] Comment on above: Performed By: #### 2 [id number] #### [facility] [address] [place] [address] Bilirubin [Mass/Vol] 0.3 mg/dL Normal 0.0-1.1 [facility] Comment on above: Performed By: #### 2 [id number] #### [facility] [address] [place] [address] Bilirubin.direct [Mass/Vol] 0.1 mg/dL Normal 0.0-0.4 [facility] Comment on above: Performed By: #### 2 [id number] #### [facility] [address] [place] [address] Bilirubin.indirect [Mass or moles/Vol] 0.2 mg/dL Normal 0.1-0.9 [facility] Comment on above: Performed By: #### 2 [id number] #### [facility] [address] [place] [address] Globulin (S) [Mass/Vol] 3.5 g/dL Normal 1.4-4.0 [facility] Comment on above: Performed By: #### 2 [id number] #### [facility] [address] [place] [address] Protein [Mass/Vol] 6.8 g/dL Normal 6.0-7.8 [facility] Comment on above: Performed By: #### 2 [id number] #### [facility] [address] [place] [address] Influenza A&B Agon 4 Influenzae A Ag Negative Normal Negative [facility] Comment on above: Performed By: #### 1 [id number] #### [facility] [address] [place] [address] Influenzae B Ag Negative Normal Negative [facility] Comment on above: Result Comment: Test sensitivity and specificity vary for age group, specimen type, antigen types, and prevalence of disease. Test results must be evaluated in conjunction with other clinical data available to the physician. Individuals who received nasally administered Influenza A vaccine may have positive test results up to 3 days after vaccination. Performed By: #### 1 [id number] #### [facility] [address] [place] [address] MICRO OTHER TESTSOrdered By: Bing Short on 05-30-2024 Influenzae A Ag Negative (05/30/24 3:45 PM) Normal Negative [facility] Sero Influenzae B Ag Negative 2 (05/30/24 3:45 PM) Normal Negative [facility] Sero Comment on above: Interpretive Data: T est sensitivity and specificity vary for age group, specimen type, antigen types, and prevalence of disease. Test results must be evaluated in conjunction with other clinical data available to the physician. Individuals who received nasally administered Influenza A vaccine may have positive test results up to 3 days after vaccination. Rapid COV Int NEG Ctl Pass (05/30/24 3:45 PM) Normal [facility] Man Sero Rapid COV Int POS Ctl Pass (05/30/24 3:45 PM) Normal [facility] Sero S. pyogenes Ag IA.rapid Ql (Throat) Negative (05/30/24 3:45 PM) Normal Negative [facility] Sero SARS-CoV+SARS-CoV-2 (COVID-19) Ag IA.rapid Ql (Resp) Not Detected 3 (05/30/24 3:45 PM) Normal Not Detected [facility] Comment on above: Interpretive Data: T he Sensorly Veritor System for Rapid Detection of SARS-CoV-2 is a chromatographic digital immunoassay intended for the direct and qualitative detection of SARS-CoV-2 nucleocapsid antigens in nasal swabs from individuals who are suspected of COVID-19 by their healthcare provider within the first five days of the onset of symptoms. Negative results should be treated as presumptive, do not rule out SARS-CoV-2 infection and should not be used as the sole basis for treatment or patient management decisions, including infection control decisions. Negative results should be considered in the context of a patient s recent exposures, history and the presence of clinical signs and symptoms consistent with COVID-19, and confirmed with a molecular assay, if necessary, for patient management. For in vitro diagnostic use. In the [place], only for use under an Emergency Use Authorization. In the [place], this test has not been FDA cleared or approved; this test has been authorized by FDA under an EUA for use by authorized laboratories; use by laboratories certified under the CLIA, 42 U.S.C. 263a, that meet requirements to perform moderate, high, or waived complexity tests and at the Point of Care (POC), i.e., in patient care settings operating under a CLIA Certificate of Waiver, Certificate of Compliance, or Certificate of Accreditation. This test has been authorized only for the detection of proteins from SARS-CoV-2, not for any other viruses or pathogens; and, in the [place], this test is only authorized for the duration of the declaration that circumstances exist justifying the authorization of emergency use of in vitro diagnostics for detection and/or diagnosis of the virus that causes COVID-19 under Section 564(b)(1) of the Act, 21 U.S.C. 360bbb-3(b)(1), unless the authorization is terminated or revoked sooner. Rapid COVID Antigen ([facility])on 05-30-2024 Rapid COV Int NEG Ctl Pass Normal [facility] Comment on above: Performed By: #### 2 [id number] #### [facility] [address] [place] [address] Rapid COV Int POS Ctl Pass Normal [facility] Comment on above: Performed By: #### 2 [id number] #### [facility] [address] [place] [address] SARS-CoV+SARS-CoV-2 (COVID-19) Ag IA.rapid Ql (Resp) Not detected Normal Not Detected [facility] Comment on above: Result Comment: The BD Veritor??? System for Rapid Detection of SARS-CoV-2 is a chromatographic digital immunoassay intended for the direct and qualitative detection of SARS-CoV-2 nucleocapsid antigens in nasal swabs from individuals who are suspected of COVID-19 by their healthcare provider within the first five days of the onset of symptoms. Negative results should be treated as presumptive, do not rule out SARS-CoV-2 infection and should not be used as the sole basis for treatment or patient management decisions, including infection control decisions. Negative results should be considered in the context of a patient???s recent exposures, history and the presence of clinical signs and symptoms consistent with COVID-19, and confirmed with a molecular assay, if necessary, for patient management. For in vitro diagnostic use. In the [facility], only for use under an Emergency Use Authorization. In the [place], this test has not been FDA cleared or approved; this test has been authorized by FDA under an EUA for use by authorized laboratories; use by laboratories certified under the CLIA, 42 U.S.C. ???263a, that meet requirements to perform moderate, high, or waived complexity tests and at the Point of Care (POC), i.e., in patient care settings operating under a CLIA Certificate of Waiver, Certificate of Compliance, or Certificate of Accreditation. This test has been authorized only for the detection of proteins from SARS-CoV-2, not for any other viruses or pathogens; and, in the [place], this test is only authorized for the duration of the declaration that circumstances exist justifying the authorization of emergency use of in vitro diagnostics for detection and/or diagnosis of the virus that causes COVID-19 under Section 564(b)(1) of the Act, 21 U.S.C. ??? 360bbb-3(b)(1), unless the authorization is terminated or revoked sooner. Performed By: #### 2 [id number] #### [facility] [address] [place] [address] Rapid Strep w/rfxon 05-30-20 24 S. pyogenes Ag IA.rapid Ql (Throat) Negative Normal Negative [facility] Comment on above: Performed By: #### 2 [id number] #### [facility] [address] [place] [address] UA with Cult Rflxon 05-30-20 24 Bilirubin Ql (U) Negative Normal Negative [facility] Comment on above: Performed By: #### 4 [id number] #### [facility] [address] [place] [address] Clarity (U) Clear Normal Clear [facility] Comment on above: Performed By: #### 4 [id number] #### [facility] [address] [place] [address] Color (U) Light-Yellow Normal Yellow [facility] Comment on above: Result Comment: Micr oscopic readings are only performed on those samples that meet specific criteria set forth by [facility]. Performed By: #### 4 [id number] #### [facility] [address] [place] [address] Epithelial cells.squamous Auto (Urine sed) [#/Area] 3-4 Invalid Interpretation Code [facility] Comment on above: Performed By: #### 4 [id number] #### [facility] [address] [place] [address] Glucose Ql (U) Negative Normal Negative [facility] Comment on above: Performed By: #### 4 [id number] #### [facility] [address] [place] [address] Hemoglobin Auto test strip (U) [Mass/Vol] 2+ mg/dL Abnormal Negative [facility] Comment on above: Performed By: #### 4 [id number] #### [facility] [address] [place] [address] Ketones Auto test strip Ql (U) Negative Normal Negative [facility] Comment on above: Performed By: #### 4 [id number] #### [facility] [address] [place] [address] Leukocyte esterase Auto test strip Ql (U) Negative Normal Negative [facility] Comment on above: Performed By: #### 4 [id number] #### [facility] [address] [place] [address] Mucus Auto Ql (U) Trace Normal Negative [facility] Comment on above: Performed By: #### 4 [id number] #### [facility] [address] [place] [address] Nitrite Auto test strip Ql (U) Negative Normal Negative [facility] Comment on above: Performed By: #### 4 [id number] #### [facility] [address] [place] [address] pH (U) 5.5 [pH] Invalid Interpretation Code 5.0-9.0 [facility] Comment on above: Performed By: #### 4 [id number] #### [facility] [address] [place] [address] Protein Ql (U) Negative Normal Negative [facility] Comment on above: Performed By: #### 4 [id number] #### [facility] [address] [place] [address] RBC Ql (U) 21-30 Abnormal 0-3 [facility] Comment on above: Performed By: #### 4 [id number] #### [facility] [address] [place] [address] Specific gravity (U) [Rel density] 1.025 Invalid Interpretation Code 1.005-1.030 [facility] Comment on above: Performed By: #### 4 [id number] #### [facility] [address] [place] [address] Urobilinogen (U) [Mass/Vol] Negative Normal Negative [facility] Comment on above: Performed By: #### 4 [id number] #### [facility] [address] [place] [address] WBC Auto (Urine sed) [#/Area] 0-5 Normal 0-5 [facility] Comment on above: Performed By: #### 4 [id number] #### [facility] [address] [place] [address] Type of Urine collection method Clean Catch Normal [facility] Comment on above: Performed By: #### 4 [id number] #### [facility] [address] [place] [address] URINALYSISOrdered By: SYSTEM SYSTEM on 05-30-2024 Bilirubin Ql (U) Negative Normal Negativemg/ d L [facility] UA Auto SS Clarity (U) Clear (05/30/24 3:45 PM) Normal Clear [facility] UA Auto SS Color (U) Light-Yellow 1 (05/30/24 3:45 PM) Normal Yellow [facility] UA Auto SS Comment on above: Interpretive Data: M icroscopic readings are only performed on those samples that meet specific criteria set forth by [facility]. Epithelial cells.squamous Auto (Urine sed) [#/Area] 3-4 graded/HPF Invalid Interpretation Code [facility] UA Auto SS Glucose Ql (U) Negative Normal Negativemg/d L [facility] UA Auto SS Hemoglobin Auto test strip (U) [Mass/Vol] 2+ mg/dL Invalid Interpretation Code Negativemg/d L [facility] UA Auto SS Ketones Auto test strip Ql (U) Negative Normal Negativemg/d L [facility] UA Auto SS Leukocyte esterase Auto test strip Ql (U) Negative Normal NegativeLeu/ uL [facility] UA Auto SS Mucus Auto Ql (U) Trace graded/LPF Normal Negati vegrad ed/LPF [facility] UA Auto SS Nitrite Auto test strip Ql (U) Negative Normal Negativemg/d L [facility] UA Auto SS pH (U) 5.5 *NA* (05/30/24 3:45 PM) Invalid Interpretation Code 5.0 - 9.0 [facility] UA Auto SS Protein Ql (U) Negative Normal Negativemg/d L [facility] UA Auto SS RBC Ql (U) 21-30 graded/HPF Invalid Interpretation Code 0-3graded/HP F [facility] UA Auto SS Specific gravity (U) [Rel density] 1.025 *NA* (05/30/24 3:45 PM) Invalid Interpretation Code 1.005 - 1.030 [facility] UA Auto SS Urobilinogen (U) [Mass/Vol] Negative Normal Negativemg/d L [facility] UA Auto SS WBC Auto (Urine sed) [#/Area] 0-5 graded/HPF Normal 0-5graded/HP F [facility] UA Auto SS URINALYSISOrdered By: Lorne Booker on 05-30-2024 UA Spec Desc Clean Catch (05/30/24 3:45 PM) Normal [facility] UA Auto SS Work Phone: eGFRon 05-30-2024 eGFR 118 mL/min/1.73 m2 Normal >=59 [facility] Comment on above: Performed By: #### 1 [id number] #### [facility] [address] [place] [address] Magnesiumon 05-27-2024 Magnesium [Mass/Vol] 1.5 mg/dL Low 1.60 - 2.40 mg/dL [facility] Magnesium [Mass/Vol] 1.50 mg/dL Low 1.60-2.40 [facility] Comment on above: Performed By: #### 3 016-3 #### MIN Zamora ([id number]) [facility] ([facility]) [address] [place] [address] Magnesium [Mass/Vol]on 05-27 Interpretation and review of laboratory results Abnormal [facility] Potassiumon 05-27-2024 Potassium [Moles/Vol] 4.4 mmol/L 3.5 - 5.3 mmol/L [facility] Potassium [Moles/Vol] 4.4 mmol/L Normal 3.5-5.3 [facility] Comment on above: Performed By: #### 3 016-3 #### MIN Zamora ([id number]) [facility] ([facility]) [address] [place] [address] Potassium [Moles/Vol]on Interpretation and review of laboratory results Normal [facility] Streptococcus.beta-hemolytic Org specific cx Ql (Genital specimen)Ordered By: Mckay Siddiqi on 05-26-2024 Interpretation and review of laboratory results Normal [facility] S. agalactiae Org specific cx Ql (Genital specimen) No Group B Streptococcus (GBS) isolated [facility] Surgical pathology studyon 1 07-25-2023 Surgical pathology study Pathology report.total SEE COMMENT Surgical Pathology Case: [id number] Authorizing Provider: Tal Robles MD Collected: 05/25/2024 0752 Ordering Location: [facility] Women's Received: 05/26/2024 0348 Hospital 2 Obstetrics and Gynecology Pathologist: Eric Jolly MD Specimen: PLACENTA SINGLE Path report.final diagnosis SEE COMMENT A. PLACENTA: -- HISTOLOGICALLY MATURE PLACENTA (474 G). -- HYPERCOILED UMBILICAL CORD. -- BASAL PLATE WITH ADHERENT MYOMETRIAL FIBERS, SEE COMMENT. Laboratory comment By the signature on this report, the individual or group listed as making the Final Interpretation/Diagnosis certifies that they have reviewed this case. Path report.comments SEE COMMENT The adherent myometrial fibers are consistent with Stage 2 (without decidua present between the myometrial fibers and the chorionic villi), and the focus measures 6.0 mm in length. Basal plate myometrial fibers (BPMF) may be an incidental finding, but may confirm noninvasive placenta accreta spectrum (PAS) in the appropriate clinical setting. Stage 1 BPMF is more likely an incidental finding than stage 2 (without intervening decidua). Clinical correlation is recommended. Ministerio Waite et al. Classification and reporting guidelines for the pathology diagnosis of placenta accreta spectrum (PAS) disorders: recommendations from an expert panel. Mod Pathol. 2020;33(12):1309-6803. Path report.relevant [facility] Path report.gross observation SEE COMMENT A: Received fresh, in formalin, labeled with the patient???s name and hospital number, is a placenta. The placental membranes are translucent and complete. The membrane insertion is marginal. The point of membrane rupture is 1.6 cm from the nearest margin. The umbilical cord is pale-yellow, 56.5 cm in total length, and inserts in the placenta, 8.5 cm from the margin. There are up to 4 coils per 10 cm. A photograph has been taken. On cut section, the cord has 3 vessels, and measures 1.0 to 1.5 cm. The placenta is discoid 26.0 x 18.5 x 1.5 cm, and weighs 474 g without cord or membranes. The surface is blue-red and translucent. The maternal surface is complete. The cut surface is dark red and spongy. No gross abnormalities are noted. [employer] Supervisor sections are submitted in 5 cassettes. KE/SBS Summary of Cassettes: Specimen Label Site A 1 umbilical cord sections 2 membrane rolls 3 placental parenchyma, umbilical cord insertion 4 placental parenchyma 5 placental parenchyma Normal [facility] Syphilis Screen with ReflexO rdered By: Howard Barber on 05-25-2024 T. pallidum IgG+IgM IA Ql (S) Non-Reactive Nonreactive [facility] Comment on above: No significant level of Treponema pallidum antibody detected. Repeat testing in 2 to 4 weeks may be considered if early infection or incubating syphilis infection is suspected. T. pallidum IgG+IgM IA Ql (S )Ordered By: Howard Barber on 05-25-2024 Interpretation and review of laboratory results Normal [facility] BMPon 05-24-2024 Anion gap [Moles/Vol] 14 mmol/L Normal 6-16 [facility] Comment on above: Performed By: #### 2 [id number] #### [facility] [address] [place] [address] Calcium [Mass/Vol] 9.5 mg/dL Normal 8.9-11.1 [facility] Comment on above: Performed By: #### 2 478767 #### [facility] [address] [place] [address] Chloride [Moles/Vol] 103 mmol/L Normal 101-111 [facility] Comment on above: Performed By: #### 2 998342 #### [facility] [address] [place] [address] CO2 [Moles/Vol] 23 mmol/L Normal 21-31 [facility] Comment on above: Performed By: #### 2 016685 #### [facility] [address] [place] [address] Creatinine [Mass/Vol] 0.6 mg/dL Normal 0.5-1.3 [facility] Comment on above: Performed By: #### 2 398078 #### [facility] [address] [place] [address] Glucose [Mass/Vol] 77 mg/dL Normal 55-199 [facility] Comment on above: Performed By: #### 2 535286 #### [facility] [address] [place] [address] Potassium [Moles/Vol] 3.7 mmol/L Normal 3.5-5.3 [facility] Comment on above: Performed By: #### 2 443714 #### [facility] [address] [place] [address] Sodium [Moles/Vol] 136 mmol/L Normal 135-145 [facility] Comment on above: Performed By: #### 2 354919 #### [facility] [address] [place] [address] Urea nitrogen [Mass/Vol] 7 mg/dL Normal 5-21 [facility] Comment on above: Performed By: #### 2 888217 #### [facility] [address] [place] [address] Urea nitrogen/Creatinine [Mass ratio] 12 No Units Normal 10-20 [facility] Comment on above: Performed By: #### 2 241676 #### [facility] [address] [place] [address] Blood type and Indirect anti body screen panel (Bld)on 05-24-2024 ABO group Nom (Bld) O [facility] Blood group antibody screen Ql Negative [facility] D Ag Ql (Bld) Positive [facility] ABO group Nom (Bld) [facility] Comment on above: Performed By: #### 2 4323-8 #### MIN Zamora ([id number]) [facility] ([facility]) [address] [place] [address] Blood group antibody screen Ql Negative [facility] Comment on above: Performed By: #### 2 4323-8 #### MIN Zamora ([id number]) [facility] ([facility]) [address] [place] [address] D Ag Ql (Bld) Positive [facility] Comment on above: Performed By: #### 2 4323-8 #### MIN Zamora ([id number]) [facility] ([facility]) [address] [place] [address] CBC panel Auto (Bld)on 05-24 Erythrocyte distribution width (RBC) [Ratio] 15.1 % High 11.5 - 14.5 % [facility] Hematocrit (Bld) [Volume fraction] 35.3 % Low 36.0 - 46.0 % [facility] Hemoglobin (Bld) [Mass/Vol] 11.7 g/dL Low 12.0 - 16.0 g/dL [facility] Interpretation and review of laboratory results Abnormal [facility] MCH (RBC) [Entitic mass] 29.8 pg 26.0 - 34.0 pg [facility] MCHC (RBC) [Mass/Vol] 33.1 g/dL 32.0 - 36.0 g/dL [facility] MCV (RBC) [Entitic vol] 90 fL 80 - 100 fL [facility] Nucleated RBC/100 WBC (Bld) [Ratio] 0 % [facility] Platelets (Bld) [#/Vol] 264 10*3/uL [facility] RBC (Bld) [#/Vol] 3.92 10*6/uL [facility] WBC (Bld) [#/Vol] 8.5 10*3/uL [facility] Erythrocyte distribution width (RBC) [Ratio] 15.1 % High 11.5-14.5 [facility] Comment on above: Performed By: #### 2 4323-8 #### MIN Zamora ([id number]) [facility] ([facility]) [address] [place] [address] Hematocrit (Bld) [Volume fraction] 35.3 % Low 36.0-46.0 [facility] Comment on above: Performed By: #### 2 4323-8 #### MIN Zamora ([id number]) [facility] ([facility]) [id number] [place] [address] Hemoglobin (Bld) [Mass/Vol] 11.7 g/dL Low 12.0-16.0 [facility] Comment on above: Performed By: #### 2 4323-8 #### MIN Zamora ([id number]) [facility] ([facility]) [address] [place] [address] MCH (RBC) [Entitic mass] 29.8 pg Normal 26.0-34.0 [facility] Comment on above: Performed By: #### 2 4323-8 #### MIN Zamora ([id number]) [facility] ([facility]) [id number] [place] [address] MCHC (RBC) [Mass/Vol] 33.1 g/dL Normal 32.0-36.0 [facility] Comment on above: Performed By: #### 2 4323-8 #### MIN Zamora ([id number]) [facility] ([facility]) [address] [place] [address] MCV (RBC) [Entitic vol] 90 fL Normal 80-100 [facility] Comment on above: Performed By: #### 2 4323-8 #### MIN Zamora ([id number]) [facility] ([facility]) [address] [place] [address] Nucleated RBC/100 WBC (Bld) [Ratio] 0.0 /100 WBCs Normal 0.0-0.0 [facility] Comment on above: Performed By: #### 2 4323-8 #### MIN Zamora ([id number]) [facility] ([facility]) [address] [place] [address] Platelets (Bld) [#/Vol] 264 x10*3/uL Normal 150-450 [facility] Comment on above: Performed By: #### 2 4323-8 #### MIN Zamora ([id number]) [facility] ([facility]) [address] [place] [address] 27518 RBC (Bld) [#/Vol] 3.92 x10*6/uL Low 4.00-5.20 [facility] Comment on above: Performed By: #### 2 4323-8 #### MIN Zaomra ([id number]) [facility] ([facility]) [id number] [place] [address] WBC (Bld) [#/Vol] 8.5 x10*3/uL Normal 4.4-11.3 [facility] Comment on above: Performed By: #### 2 4323-8 #### MIN Zamora ([id number]) [facility] ([facility]) [address] [place] [address] CBC w/ Auto Diffon 4 Basophils/100 WBC (Bld) 1.4 % Normal 0.0-2.0 [facility] Comment on above: Performed By: #### 2 040157 #### [facility] [address] [place] [address] Basophils/Leukocytes Auto (Bld) [Pure # fraction] 0.1 E9/L Normal 0.0-0.2 [facility] Comment on above: Performed By: #### 2 186610 #### [facility] [address] [place] [address] Eosinophils (Bld) [#/Vol] 0.1 E9/L Normal 0.0-0.5 [facility] Comment on above: Performed By: #### 2 975289 #### [facility] [address] [place] [address] Eosinophils/100 WBC (Bld) 1.1 % Normal 0.0-8.0 [facility] Comment on above: Performed By: #### 2 689698 #### [facility] [address] [place] [address] Erythrocyte distribution width (RBC) [Ratio] 15.8 % High 10.9-14.2 [facility] Comment on above: Performed By: #### 2 052919 #### [facility] [address] [place] [address] Hematocrit (Bld) [Volume fraction] 36.8 % Normal 34.0-46.0 [facility] Comment on above: Performed By: #### 2 978699 #### [facility] [address] [place] [address] Hemoglobin (Bld) [Mass/Vol] 12.9 g/dL Normal 12.0-16.0 [facility] Comment on above: Performed By: #### 2 078839 #### [facility] [address] [place] [address] Lymphocytes (Bld) [#/Vol] 3.5 E9/L Normal 1.0-4.0 [facility] Comment on above: Performed By: #### 2 569287 #### [facility] [address] [place] [address] Lymphocytes/100 WBC (Bld) 32.7 % Normal 14.0-50.0 [facility] Comment on above: Performed By: #### 2 629755 #### [facility] [address] [place] [address] MCH (RBC) [Entitic mass] 30.8 pg Normal 27.0-34.0 [facility] Comment on above: Performed By: #### 2 612572 #### [facility] [address] [place] [address] MCHC (RBC) [Mass/Vol] 35.2 g/dL Normal 31.4-36.0 [facility] Comment on above: Performed By: #### 2 586005 #### [facility] [address] [place] [address] MCV (RBC) [Entitic vol] 87.6 fL Normal 80.0-100.0 [facility] Comment on above: Performed By: #### 2 397650 #### [facility] [address] [place] [address] Monocytes (Bld) [#/Vol] 0.8 E9/L Normal 0.2-1.0 [facility] Comment on above: Performed By: #### 2 756798 #### [facility] [address] [place] [address] Neutrophils (Bld) [#/Vol] 6.0 E9/L Normal 2.0-7.5 [facility] Comment on above: Performed By: #### 2 476933 #### [facility] [address] [place] [address] Neutrophils/100 WBC (Bld) 56.8 % Normal 36.0-75.0 [facility] Comment on above: Performed By: #### 2 017737 #### [facility] [address] [place] [address] Platelet 282.0 E9/L Normal 150.0-500.0 [facility] Comment on above: Performed By: #### 2 063345 #### [facility] [address] [place] [address] Platelet mean volume (Bld) [Entitic vol] 7.6 fL Normal 6.4-10.8 [facility] Comment on above: Performed By: #### 2 159483 #### [facility] [address] [place] [address] RBC (Bld) [#/Vol] 4.2 E12/L Low 4.3-5.9 [facility] Comment on above: Performed By: #### 2 952410 #### [facility] [address] [place] [address] WBC corrected for nucl RBC Auto (Bld) [#/Vol] 10.6 E9/L Normal 4.0-11.0 [facility] Comment on above: Performed By: #### 2 331606 #### [facility] [address] [place] [address] CHEMISTRYOrdered By: SYSTEM SYSTEM on 05-24-2024 Troponin HS 21.20 pg/mL Normal 10.10 - 27.10 pg/mL [facility] Comment on above: Interpretive Data: T he 95% CI (Confidence Interval) PPV (Positive Predictive Value) for myocardial infarction in females is 38 pg/mL, in males 51 pg/mL. The results should be used in conjunction with clinical conditions of myocardial infarction. (Access High Sensitivity Troponin I Instructions For Use, [place], February 2018) Anion gap [Moles/Vol] 14 mmol/L Normal 6 - 16 mEq/L [facility] Calcium [Mass/Vol] 9.5 mg/dL Normal 8.9 - 11. 1 mg/dL [facility] Chloride [Moles/Vol] 103 mmol/L Normal 101 - 1 11 mmol/L [facility] CO2 [Moles/Vol] 23 mmol/L Normal 21 - 31 mmol/L [facility] Creatinine [Mass/Vol] 0.6 mg/dL Normal 0.5 - 1.3 mg/dL [facility] eGFR 118 mL/min/1.73 m2 Normal >=59mL/mi n/1 .73 m2 [facility] Glucose [Mass/Vol] 77 mg/dL Normal 55 - 199 mg/dL [facility] Magnesium [Mass/Vol] 1.6 mg/dL Normal 1.3 - 2 .4 mg/dL [facility] Potassium [Moles/Vol] 3.7 mmol/L Normal 3.5 - 5.3 mmol/L [facility] Sodium [Moles/Vol] 136 mmol/L Normal 135 - 145 mmol/L [facility] Troponin HS 18.80 pg/mL Normal 10.10 - 27.10 pg/mL [facility] Comment on above: Interpretive Data: T he 95% CI (Confidence Interval) PPV (Positive Predictive Value) for myocardial infarction in females is 38 pg/mL, in males 51 pg/mL. The results should be used in conjunction with clinical conditions of myocardial infarction. (Access High Sensitivity Troponin I Instructions For Use, Rylan [place], February 2018) Urea nitrogen [Mass/Vol] 7 mg/dL Normal 5 - 21 mg/dL [facility] Urea nitrogen/Creatinine [Mass ratio] 12 mg/mg Normal 10 - 20 [facility] Comprehensive metabolic 2000 panelon 05-24-2024 Albumin BCP dye [Mass/Vol] 3.1 g/dL Low 3.4 - 5.0 g/dL [facility] ALP [Catalytic activity/Vol] 159 U/L High 33 - 110 U/L [facility] ALT With P-5'-P [Catalytic activity/Vol] 18 U/L 7 - 45 U/L [facility] Comment on above: Patients treated wit h Sulfasalazine may generate falsely decreased results for ALT. Anion gap [Moles/Vol] 15 mmol/L 10 - 2 0 mmol/L [facility] AST With P-5'-P [Catalytic activity/Vol] 16 U/L 9 - 39 U/L [facility] Bilirubin [Mass/Vol] 0.9 mg/dL 0.0 - 1 .2 mg/dL [facility] Calcium [Mass/Vol] 8.6 mg/dL 8.6 - 10. 6 mg/dL [facility] Chloride [Moles/Vol] 104 mmol/L 98 - 10 7 mmol/L [facility] CO2 [Moles/Vol] 22 mmol/L 21 - 32 mmol/L [facility] Creatinine [Mass/Vol] 0.62 mg/dL 0.50 - 1.05 mg/dL [facility] eGFR - PINF [facility] Comment on above: Calculations of corine mated GFR are performed using the 2020 CKD-EPI Study Refit equation without the race variable for the IDMS-Traceable creatinine methods. https://jasn.asnjournals.org/content/early/ASN.045012 9822 Glucose [Mass/Vol] 69 mg/dL Low 74 - 99 mg/dL [facility] Interpretation and review of laboratory results Abnormal [facility] Potassium [Moles/Vol] 3.6 mmol/L 3.5 - 5.3 mmol/L [facility] Protein [Mass/Vol] 6.5 g/dL 6.4 - 8.2 g/dL [facility] Sodium [Moles/Vol] 137 mmol/L 136 - 145 mmol/L [facility] Urea nitrogen [Mass/Vol] 8 mg/dL 6 - 23 mg/dL [facility] Albumin BCP dye [Mass/Vol] 3.1 g/dL Low 3.4-5.0 [facility] Comment on above: Performed By: #### 2 4323-8 #### MIN Zamora ([id number]) [facility] ([facility]) [address] [place] [address] ALP [Catalytic activity/Vol] 159 U/L High 33-110 [facility] Comment on above: Performed By: #### 2 4323-8 #### MIN Zamora ([id number]) [facility] ([facility]) [address] [place] [address] ALT With P-5'-P [Catalytic activity/Vol] 18 U/L Normal 7-45 [facility] Comment on above: Result Comment: Anne-Marie ents treated with Sulfasalazine may generate falsely decreased results for ALT. Performed By: #### 2 4323-8 #### MIN Zamora ([id number]) [facility] ([facility]) [address] [place] [address] Anion gap [Moles/Vol] 15 mmol/L Normal 10-20 [facility] Comment on above: Performed By: #### 2 4323-8 #### MIN Zamora ([id number]) [facility] ([facility]) [address] [place] [address] AST With P-5'-P [Catalytic activity/Vol] 16 U/L Normal 9-39 [facility] Comment on above: Performed By: #### 2 4323-8 #### MIN Zamora ([id number]) [facility] ([facility]) [address] [place] [address] Bilirubin [Mass/Vol] 0.9 mg/dL Normal 0.0-1.2 [facility] Comment on above: Performed By: #### 2 4323-8 #### MIN Zamora ([id number]) [facility] ([facility]) [address] [place] [address] Calcium [Mass/Vol] 8.6 mg/dL Normal 8.6-10.6 [facility] Comment on above: Performed By: #### 2 4323-8 #### MIN Zamora ([id number]) [facility] ([facility]) [address] [place] [address] Chloride [Moles/Vol] 104 mmol/L Normal 98-107 [facility] Comment on above: Performed By: #### 2 4323-8 #### MIN Zamora ([id number]) [facility] ([facility]) [address] [place] [address] CO2 [Moles/Vol] 22 mmol/L Normal 21-32 [facility] Comment on above: Performed By: #### 2 4323-8 #### MIN Zamora ([id number]) [facility] ([facility]) [address] [place] [address] Creatinine [Mass/Vol] 0.62 mg/dL Normal 0.50-1.05 [facility] Comment on above: Performed By: #### 2 4323-8 #### MIN Zamora ([id number]) [facility] ([facility]) [id number] [place] [address]015 GFR/1.73 sq M.predicted MDRD (S/P/Bld) [Vol rate/Area] mL/min/{1.73_m2} Normal >60 [facility] Comment on above: Result Comment: Calc ulations of estimated GFR are performed using the 2020 CKD-EPI Study Refit equation without the race variable for the IDMS-Traceable creatinine methods. https://jasn.asnjournals.org/content//ASN.493432 1915 Performed By: #### 2 4323-8 #### MIN Zamora ([id number]) [facility] ([facility]) [address] [place] [address]303 Glucose [Mass/Vol] 69 mg/dL Low 74-99 [facility] Comment on above: Performed By: #### 2 4323-8 #### MIN Zamora ([id number]) [facility] ([facility]) [address] [place] [address] Potassium [Moles/Vol] 3.6 mmol/L Normal 3.5-5.3 [facility] Comment on above: Performed By: #### 2 4323-8 #### MIN BROWNLEE L ([id number]) [facility] ([facility]) [id number] [place] [address] Protein [Mass/Vol] 6.5 g/dL Normal 6.4-8.2 [facility] Comment on above: Performed By: #### 2 4323-8 #### MIN BROWNLEE L ([id number]) [facility] ([facility]) [address] [place] [address] Sodium [Moles/Vol] 137 mmol/L Normal 136-145 [facility] Comment on above: Performed By: #### 2 4323-8 #### MIN Zamora ([id number]) [facility] ([facility]) [address] [place] [address] Urea nitrogen [Mass/Vol] 8 mg/dL Normal 6-23 [facility] Comment on above: Performed By: #### 2 4323-8 #### MIN Zamora ([id number]) [facility] ([facility]) [address] [place] [address] ED Clinical Summaryon 2023 ED Clinical Summary ED Clinical Summary [address] [address] ED Clinical Summary Person Information Name: ILDA VIERA Chris/[facility] Age: 39 Years : 1985 Sex: Female Language: Icelandic PCP: Linda Lutz Marital Status: Phone: [phone] Visit Id: Visit Reason: Shortness of breath; Chest pain; Tachycardia; 36 WEEKS /HIGH RATE HIGH /COVID POSITIVE Speciality: Acuity: 1 Enc Type: Emergency Med Service: Emergency Arrival: 05/24/2024 05:42:23 Discharge: 05/24/2024 10:56:23 LOS: 000 05:14 Checkin: 05/24/2024 05:42:23 Checkout: 05/24/2024 10:56:23 Dispo Type: Short-Term Hosp as IP EVENTS: Event Name Event Status Request Date/Time Start Date/Time Complete Date/Time Arrive Complete 05/24/2024 05:42:23 05/24/2024 05:42:23 05/24/2024 05:42:23 Document Home Meds Request 05/24/2024 05:42:23 Triage Complete 05/24/2024 05:42:23 05/24/2024 05:58:52 05/24/2024 05:58:52 Registration Complete 05/24/2024 05:47:39 05/24/2024 05:47:39 05/24/2024 05:47:39 Reg Complete Request 05/24/2024 05:47:39 Reg Bed Request Complete 05/24/2024 05:47:39 05/24/2024 05:47:39 05/24/2024 05:47:39 EKG Complete 05/24/2024 05:49:03 05/24/2024 05:52:42 Bed Assign Complete 05/24/2024 05:56:15 05/24/2024 05:56:15 05/24/2024 05:56:15 Dr Exam Complete 05/24/2024 05:56:15 05/24/2024 05:56:53 05/24/2024 05:56:53 RN Exam Complete 05/24/2024 05:56:15 05/24/2024 06:54:41 05/24/2024 06:54:41 Registration Complete 05/24/2024 05:56:53 05/24/2024 07:22:47 05/24/2024 07:22:47 Meds Admin Complete 05/24/2024 06:01:35 05/24/2024 07:03:28 Meds Admin Complete 05/24/2024 06:09:52 05/24/2024 06:14:23 EKG Complete 05/24/2024 06:16:41 05/24/2024 06:17:42 Pending Labs Complete 05/24/2024 06:23:29 05/24/2024 06:58:59 Lab Complete 05/24/2024 06:23:29 05/24/2024 06:58:59 Pending Labs Complete 05/24/2024 06:37:11 05/24/2024 06:37:11 05/24/2024 06:58:59 Lab Complete 05/24/2024 06:37:11 05/24/2024 06:37:11 05/24/2024 06:58:59 Pending Labs Complete 05/24/2024 06:43:32 05/24/2024 06:43:32 05/24/2024 06:43:32 Pending Labs Complete 05/24/2024 06:55:01 05/24/2024 06:55:01 05/24/2024 06:55:45 Pending Labs Complete 05/24/2024 06:55:42 05/24/2024 07:58:39 Pending Labs Complete 05/24/2024 06:56:31 05/24/2024 06:56:31 05/24/2024 07:17:51 Lab Complete 05/24/2024 06:56:31 05/24/2024 06:56:31 05/24/2024 07:17:51 Dr Exam Complete 05/24/2024 07:02:27 05/24/2024 07:02:27 05/24/2024 07:02:27 Patient Care Request 05/24/2024 09:38:11 Transfer Complete 05/24/2024 09:38:11 05/24/2024 10:56:43 05/24/2024 10:56:43 Discharge Complete 05/24/2024 10:56:43 05/24/2024 10:56:43 05/24/2024 10:56:43 ADDRESS: [address] [place] [address] [address] [facility] [id number] PHYS DOC NOTES: Addendum by Cat Gottlieb M.D. on May 24, 2024 10:10:54 EST MEDICAL INFORMATION: Prescriptions Given: Medications to Continue with No Changes Other Medications albuterol (Albuterol (Eqv-ProAir HFA) 90 mcg/inh inhalation aerosol) 2 Puffs Inhalation every 4 hours. Refills: 0. cholecalciferol (cholecalciferol 50,000 intl units oral capsule) 1 Capsules By Mouth every 7 days. Refills: 1. ferrous sulfate (Slow Iron) fluticasone nasal (fluticasone 0.05 mg/inh Nasal [place]) 1 Sprays Nasal Inhalation every day as needed Allergy symptoms. lamotrigine (lamotrigine 150 mg Tab) 2 Tablets By Mouth every day. Refills: 5. levothyroxine (Levoxyl 137 mcg (0.137 mg) oral tablet) 1 Tablets By Mouth every day. metformin (metformin 1000 mg Tab) 1 Tablets By Mouth 2 times a day. Refills: 3. metoprolol (metoprolol succinate 50 mg ER Tab) 2 times a day. multivitamin, (M- Plus oral tablet) ondansetron (ondansetron 4 mg Tab) 1 Tablets By Mouth every 8 hours as needed Nausea/Vomiting. PATIENT EDUCATION INFORMATION: Instructions: Follow up: DIAGNOSIS: SVT (supraventricular tachycardia) Normal [facility] ED Note-Nursingon 05-24-2024 ED Note-Nursing ED Note-Nursing OB nurse Jj RN at bedside. monitor applied. Normal [facility] ED Note-Nursing ED Note-Nursing at bedside for administration of 12 mg Adenosine IV. Pt a/o x4. 0613: Pt conversion successful. Sinus tachycardia noted. Pt a/o x4. FHT 134. OB nurse to come to ED to monitor pt and fetus. Normal [facility] ED Note-Nursing ED Note-Nursing at bedside; Zoll patches applied and pt monitored via zoll. 6mg of adenosine administered at this time. Pt a/o x4. 0609: Conversion unsuccessful at this time. Pt a/o x4. FHT 138 with Doppler. to order 12 mg Adenosine IV. Normal [facility] ED Note-Nursing ED Note-Nursing Pt presents to ED with c/o heart palpitations. SVT noted on EKG; notified. 0650: at bedside. Vagal maneuvers performed. No noted conversion. 0600: to notify to confirm safety of Adenosine admin due to pt being 36 wks . FHT 132 with Doppler. Normal [facility] ED Note-Physicianon 05-24-20 ED Note-Physician ED Note-Physician Basic Information Time Seen: Ricky Hall DO 05/24/2024 05:56 Chief Complaint pt states has been in svt since 5am this am. states has been going in and out recently. chest pressure and sob. pt is 36wks preg. History of Present Illness HPI: Patient is a 36-week 39-year-old female with past medical history of B12 deficiency, bipolar, hypothyroidism, migraine, SVT who presents to the ED for SVT. Patient states that she felt her heart start racing like she is in one of her episodes of SVT starting at around 0 500 this morning. She states that she has had episodes of this over the years but has been having more frequent episodes of this . She was also recently diagnosed with COVID and thinks that is exacerbating it. She reports that she recently presented similarly and was transferred to [facility] and has been following with cardiology and maternal- medicine with them. She reports that she had a recent echocardiogram which she was told was reassuring and they recently switched her from metoprolol to labetalol. She states that last time she had an episode she converted while they were placing an IV. ROS: Pertinent review of systems conducted and is negative except as noted above. Physical exam: General: Uncomfortable and mildly diaphoretic HEENT: Mucous membranes moist Neuro: awake and alert Neck: supple, trachea midline Card: Tachycardic, regular Resp: Lungs clear to auscultation no wheeze or rhonchi Abd: Gravid abdomen is nontender Ext: No gross deformity or edema Physical Exam Vitals & Measurements T: 36.4 ???C(Oral) HR: 112(Monitored) RR: 18 BP: 133/84 SpO2: 97% HT: 157.4 cm WT: 104.8 kg BMI: 42.3 Procedure Critical Care Time: 33 minutes billable from other separate procedures. This includes management of potential life-threatening deterioration. Frequent reassessment and time spent at bedside per discussion with other physicians. Medical Decision Making MEDICAL DECISION MAKING Number and Complexity of Problems Differential Diagnosis: [] [facility] Data External documents reviewed: N/A My EKG interpretation: Noted in chart if applicable My CT interpretation: N/A My X-ray interpretation: Noted in chart if applicable My Ultrasound interpretation: N/A Decision rules/scores evaluated: N/A Discussed with: N/A Treatment and Disposition ED Course: On arrival to the ED the patient was taken immediately back to a trauma bay was placed on the monitor and her heart rate was in the 220s. EKG is obtained and shows SVT. She reports that last time she had an episode of this she spontaneously converted when they were placing the IV. While nursing staff was working on IV access I did attempt carotid massage as well as Valsalva with no effect. I called spoke to Dr. Warren who is on-call for [employer] and after short discussion we are in agreement with plan of adenosine for cardioversion. We first attempted 6 mg of adenosine rapid push followed by IV flush. She did have a short pause but immediately returned into SVT. A second dose of 12 mg was given and she did then convert to sinus rhythm which was confirmed on EKG. Will obtain basic labs and OB nursing staff for symptom to the ED to do monitoring. Patient signed out to the oncoming physician pending final lab results and monitoring. Shared decision making: As above Code status: N/A Assessment/Plan SVT (supraventricular tachycardia) (I47.10: Supraventricular tachycardia, unspecified) Orders: adenosine, 6 mg = 2 mL, Soln-IV, IV, Once, Stop date 05/24/24 6:06:00 EST, Start date 05/24/24 6:06:00 EST adenosine, 12 mg = 4 mL, Soln-IV, IV Push, Once, Stop date 05/24/24 6:09:00 EST, STAT, Start date 05/24/24 6:09:00 EST, 05/24/24 6:09:00 EST Sodium Chloride 0.9% intravenous solution 500 mL, 500 mL, IV, 500 mL/hr, for 60 minute(s), Stop date 05/24/24 7:00:00 EST, STAT, Start date 05/24/24 6:01:00 EST, 1 hour(s), Total volume (mL): 500, 104.8 kg, 2.14, m2 Basic Metabolic Panel CBC w/ Auto Diff ECG 12 Lead Adult ECG 12 Lead Adult Magnesium Level Medications Administered Given NS 500 mL Soln-IV 500 mL, 500 mL, IV [id number] [F], 6 mg, IV adenosine 3 mg/mL IV Deanna 4 mL, 12 mg, IV Push Disposition Plan Discharge Prescription List Prescriptions No active prescription medications Follow-up No qualifying data available Problem List/Past Medical History Ongoing Androgen level above reference range B12 deficiency anemia Bipolar disorder BMI 39.0-39.9,adult Current non-smoker Currently Depressive disorder in mother complicating Elevated blood pressure reading without diagnosis of hypertension Elevated total protein Fatigue Fatty liver High risk High serum testosterone Hyperinsulinemia Hypothyroid Iron deficiency anemia of mother during Maternal obesity complicating , childbirth and the puerperium, antepartum Ob (more content not included)... Normal [facility] Comment on above: Result Comment: Elec tronically Signed By: Hajdari M.Cat Mai.vanessa\Date and Time Signed: 05/24/24 10:12 EST ED Note-Physician ED Note-Physician Basic Information Time Seen: Ricky Hall DO 05/24/2024 05:56 Chief Complaint pt states has been in svt since 5am this am. states has been going in and out recently. chest pressure and sob. pt is 36wks preg. History of Present Illness HPI: Patient is a 36-week 39-year-old female with past medical history of B12 deficiency, bipolar, hypothyroidism, migraine, SVT who presents to the ED for SVT. Patient states that she felt her heart start racing like she is in one of her episodes of SVT starting at around 0 500 this morning. She states that she has had episodes of this over the years but has been having more frequent episodes of this . She was also recently diagnosed with COVID and thinks that is exacerbating it. She reports that she recently presented similarly and was transferred to [facility] and has been following with cardiology and maternal- medicine with them. She reports that she had a recent echocardiogram which she was told was reassuring and they recently switched her from metoprolol to labetalol. She states that last time she had an episode she converted while they were placing an IV. ROS: Pertinent review of systems conducted and is negative except as noted above. Physical exam: General: Uncomfortable and mildly diaphoretic HEENT: Mucous membranes moist Neuro: awake and alert Neck: supple, trachea midline Card: Tachycardic, regular Resp: Lungs clear to auscultation no wheeze or rhonchi Abd: Gravid abdomen is nontender Ext: No gross deformity or edema Physical Exam Vitals & Measurements T: 36.4 ???C(Oral) HR: 112(Monitored) RR: 18 BP: 133/84 SpO2: 97% HT: 157.4 cm WT: 104.8 kg BMI: 42.3 Procedure Critical Care Time: 33 minutes billable from other separate procedures. This includes management of potential life-threatening deterioration. Frequent reassessment and time spent at bedside per discussion with other physicians. Medical Decision Making MEDICAL DECISION MAKING Number and Complexity of Problems Differential Diagnosis: [] [facility] Data External documents reviewed: N/A My EKG interpretation: Noted in chart if applicable My CT interpretation: N/A My X-ray interpretation: Noted in chart if applicable My Ultrasound interpretation: N/A Decision rules/scores evaluated: N/A Discussed with: N/A Treatment and Disposition ED Course: On arrival to the ED the patient was taken immediately back to a trauma bay was placed on the monitor and her heart rate was in the 220s. EKG is obtained and shows SVT. She reports that last time she had an episode of this she spontaneously converted when they were placing the IV. While nursing staff was working on IV access I did attempt carotid massage as well as Valsalva with no effect. I called spoke to Dr. Warren who is on-call for [employer] and after short discussion we are in agreement with plan of adenosine for cardioversion. We first attempted 6 mg of adenosine rapid push followed by IV flush. She did have a short pause but immediately returned into SVT. A second dose of 12 mg was given and she did then convert to sinus rhythm which was confirmed on EKG. Will obtain basic labs and OB nursing staff for symptom to the ED to do monitoring. Patient signed out to the oncoming physician pending final lab results and monitoring. Shared decision making: As above Code status: N/A Assessment/Plan SVT (supraventricular tachycardia) (I47.10: Supraventricular tachycardia, unspecified) Orders: adenosine, 6 mg = 2 mL, Soln-IV, IV, Once, Stop date 05/24/24 6:06:00 EST, Start date 05/24/24 6:06:00 EST adenosine, 12 mg = 4 mL, Soln-IV, IV Push, Once, Stop date 05/24/24 6:09:00 EST, STAT, Start date 05/24/24 6:09:00 EST, 05/24/24 6:09:00 EST Sodium Chloride 0.9% intravenous solution 500 mL, 500 mL, IV, 500 mL/hr, for 60 minute(s), Stop date 05/24/24 7:00:00 EST, STAT, Start date 05/24/24 6:01:00 EST, 1 hour(s), Total volume (mL): 500, 104.8 kg, 2.14, m2 Basic Metabolic Panel CBC w/ Auto Diff ECG 12 Lead Adult ECG 12 Lead Adult Magnesium Level Medications Administered Given NS 500 mL Soln-IV 500 mL, 500 mL, IV [id number] [F], 6 mg, IV adenosine 3 mg/mL IV Deanna 4 mL, 12 mg, IV Push Disposition Plan Discharge Prescription List Prescriptions No active prescription medications Follow-up No qualifying data available Problem List/Past Medical History Ongoing Androgen level above reference range B12 deficiency anemia Bipolar disorder BMI 39.0-39.9,adult Current non-smoker Currently Depressive disorder in mother complicating Elevated blood pressure reading without diagnosis of hypertension Elevated total protein Fatigue Fatty liver High risk High serum testosterone Hyperinsulinemia Hypothyroid Iron deficiency anemia of mother during Maternal obesity complicating , childbirth and the puerperium, antepartum Ob (more content not included)... Normal [facility] Comment on above: Result Comment: Elec tronically Signed By: Ricky Hall DO\.br\Date and Time Signed: 05/24/24 07:04 EST ED Patient Education Noteon 05-24-2024 ED Patient Education Note ED Patient Education Note Normal [facility] ED Patient Summaryon 024 ED Patient Summary ED Patient Summary [place] [id number] Patient Discharge Instructions Person Information Name: ILDA VIERA Age: 39 Years Arrival Date: 05/24/2024 05:42:23 Discharge Diagnosis: SVT (supraventricular tachycardia) Primary Care Physician: Linda Lutz Provider Information Primary Provider: Ricky Hall DO Advanced Curriculum Assistant:None The exam and treatment you received in the Emergency Department were for an urgent problem and are not intended as complete care. It is important that you follow up with a doctor, nurse practitioner, or physician???s pharmaceutical assistant for ongoing care. If your symptoms become worse or you do not improve as expected and you are unable to reach your usual health care provider, you should return to the Emergency Department. We are available 24 hours a day. ILDA VIERA has been given the following list of patient education materials, prescriptions and follow-up instructions: Follow-up Instructions: In the event that this physician does not participate in your insurance network, please consult with your insurance company to find a nearby participating provider. Patient Education Materials: A MESSAGE TO ALL PATIENTS REGARDING OPIOIDS PRESCRIPTION OPIOIDS: WHAT YOU NEED TO KNOW Prescription opioids can be used to help relieve kwtdaozk-om-fsyefo pain and are often prescribed following a surgery or injury, or for certain health conditions. These medications can be an important part of the treatment but also come with serious risks. It is important to work with your healthcare provider to make sure you are getting the safest, most effective care. WHAT ARE THE RISKS AND SIDE EFFECTS OF OPIOID USE? Prescription opioids carry serious risks of addiction and overdose, especially with prolonged use. An opioid overdose, often marked by slowed breathing, can cause sudden . The use of prescription opioids can have a number of side effects as well, even when taken as directed: ??? Tolerance???meaning you might need to take more of the medication for the same pain relief ??? Physical dependence???meaning you have symptoms of withdrawal when a medication is stopped ??? Increased sensitivity to pain ??? Constipation ??? Nausea, vomiting, and dry mouth ??? Sleepiness and dizziness ??? Confusion ??? Depression ??? Low levels of testosterone that can result in lower sex drive, energy, and strength ??? Itching and sweating RISKS ARE GREATER WITH: ??? History of drug misuse, substance use disorder, or overdose ??? Mental health conditions (such as depression or anxiety) ??? Sleep apnea ??? Older age (65 years and older) ??? Avoid alcohol while taking prescription opioids. Also, unless specifically advised by your health care provider, medications to avoid include: ??? Benzodiazepines (such as Xanax or Valium) ??? Muscle relaxants (such as Soma or Flexeril) ??? Hypnotics (such as Ambien or Lunesta) ??? Other prescription opioids KNOW YOUR OPTIONS Talk to your health care provider about ways to manage your pain that don???t involve prescription opioids. Some of these options may actually work better and have fewer risks and side effects. Options may include: ??? Pain relievers such as acetaminophen, ibuprofen, and naproxen ??? Some medication that are also used for depression or seizures ??? Physical therapy and exercise ??? Cognitive behavioral therapy, a psychological, goal-directed approach, in which patients learn how to modify physical, behavioral, and emotional triggers of pain and stress. IF YOU ARE PRESCRIBED OPIOIDS FOR PAIN: ??? Never take opioids in greater amounts or more often than prescribed. ??? Follow up with your primary health care provider. o Work together to create a plan on how to manage your pain. o Talk about ways to help manage your pain that don???t involve prescription opioids. o Talk about any and all concerns and side effects. ??? Help prevent misuse and abuse o Never sell or share prescription opioids. o Never use another person???s prescription opioids. ??? Store prescription opioids in a secure place and out of reach of others (this may include visitors, children, friends, and family). ??? Safely dispose of unused prescription opioids: Find your community drug take-back program or your pharmacy mail-back program, or flush them down the toilet, following guidance from the Food and Drug Administration (www.fda.gov/Drugs/Resour cesForYou). ??? Visit www.cdc.gov/drugoverdose to learn about the risks of opioids abuse and overdose. ??? If you believe you may be struggling with addiction, tell your health child day care provider and ask for guidance or call [facility]S National Helpline at 2-984-913-NQHP. v Source: [place] Department of Health and Human Services/[place] for [facility] (more content not included)... Normal [facility] Extra Blueon 05-24-2024 Tube Collected Plasma Yes Invalid Interpretation Code [facility] Comment on above: Performed By: #### 1 [id number] #### [facility] [address] [place] [address] HEMATOLOGYOrdered By: SYSTEM SYSTEM on 05-24-2024 Basophils/100 WBC (Bld) 1.4 % Normal 0.0 - 2.0 % Remisol Heme Basophils/Leukocytes Auto (Bld) [Pure # fraction] 0.1 E9/L Normal 0.0 - 0.2 E9/L Remisol Heme Eosinophils (Bld) [#/Vol] 0.1 E9/L Normal 0.0 - 0.5 E9/L Remisol Heme Eosinophils/100 WBC (Bld) 1.1 % Normal 0.0 - 8.0 % Remisol Heme Erythrocyte distribution width (RBC) [Ratio] 15.8 % High 10.9 - 14.2 % Remisol Heme Hematocrit (Bld) [Volume fraction] 36.8 % Normal 34.0 - 46.0 % Remisol Heme Hemoglobin (Bld) [Mass/Vol] 12.9 g/dL Normal 12.0 - 16.0 gm/dL Remisol Heme Lymphocytes (Bld) [#/Vol] 3.5 E9/L Normal 1.0 - 4.0 E9/L Remisol Heme Lymphocytes/100 WBC (Bld) 32.7 % Normal 14.0 - 50.0 % Remisol Heme MCH (RBC) [Entitic mass] 30.8 pg Normal 27.0 - 34.0 pg Remisol Heme MCHC (RBC) [Mass/Vol] 35.2 g/dL Normal 31.4 - 36.0 gm/dL Remisol Heme MCV (RBC) [Entitic vol] 87.6 fL Normal 80.0 - 100.0 fL Remisol Heme Monocytes (Bld) [#/Vol] 0.8 E9/L Normal 0.2 - 1.0 E9/L Remisol Heme Monocytes/100 WBC (Bld) 8.0 % Normal 4.0 - 14.0 % Remisol Heme Neutrophils (Bld) [#/Vol] 6.0 E9/L Normal 2.0 - 7.5 E9/L Remisol Heme Neutrophils/100 WBC (Bld) 56.8 % Normal 36.0 - 75.0 % Remisol Heme Platelet 282.0 E9/L Normal 150.0 - 500.0 E9/L Remisol Heme Platelet mean volume (Bld) [Entitic vol] 7.6 fL Normal 6.4 - 10.8 fL Remisol Heme RBC (Bld) [#/Vol] 4.2 E12/L Low 4.3 - 5.9 E12/L Remisol Heme WBC corrected for nucl RBC Auto (Bld) [#/Vol] 10.6 E9/L Normal 4.0 - 11.0 E9/L Remisol Heme Magnesiumon 05-24-2024 Magnesium [Mass/Vol] 1.6 mg/dL Normal 1.3-2.4 [facility] Comment on above: Performed By: #### 2 [id number] #### [facility] [address] [place] [id number] Nursing Assessmenton 024 SARS-CoV-2 (COVID-19) RNA BENNY+probe Ql (Unsp spec) Nursing Assessment 0630- called to ER for evaluation after +COVID, 36 week multip was cardioverted, as upon arrival in SVT. 0634- placed monitors on pt denies any pain, vaginal bleeding or leaking of any fluid. abdomen soft to palpation and pt states positive movement. FHTs reactive and reassuring with heart tones in the 130s, moderate variability, accelerations present, and no decelerations noted. Audible movement noted. Although pt not feeling any pain SVE performed d/t several irregular contractions noted. SVE closed, high, post, and soft. 0705- reported findings to ER staff. Normal [facility] Prepare RBC: 1 Units, Leukoc ytes Reduced (CMV reduced risk)on 05-24-2024 Blood Expiration Date 06/05/2024 11:59:0 0 PM EST [facility] Dispense Status XM [facility] PRODUCT BLOOD TYPE 5100 [facility] PRODUCT CODE [id number] [facility] Unit ABO O [facility] Unit Number [id number] [facility] RH Positive [facility] UNIT VOLUME 350 [facility] XM INTEP COMP [facility] Streptococcus.beta-hemolytic on 05-24-2024 Streptococcus.beta-he molytic Org specific cx Ql (Genital specimen) Test: Group B Streptococcus (GBS) Screen, Culture Specimen Source: Vaginal/Rectal Specimen Type: Swab Specimen Date: 05/24/20241709 Result Date: 05/26/2024 0831 Result Status: Final result Abnormal: No Resulting Lab: [facility] [address] [place] [id number] CULTURE No Group B Streptococcus (GBS) isolated Normal [facility] Comment on above: Performed By: #### 3 [id number] #### MIN Zamora ([id number]) [facility] ([facility]) [address] [place] [address] Treponema pallidum Ab.IgG+Ig Mon 05-24-2024 T. pallidum IgG+IgM IA Ql (S) Non-Reactive Normal Nonreactive [facility] Comment on above: Order Comment: This test is for Syphilis screening, for Syphilis monitoring order RPR with Titer, Syphilis Monitoring Result Comment: No s ignificant level of Treponema pallidum antibody detected. Repeat testing in 2 to 4 weeks may be considered if early infection or incubating syphilis infection is suspected. Performed By: #### 2 [id number] #### MIN Zamora ([id number]) [facility] ([facility]) [address] [place] [address] Troponinon 05-24-2024 Troponin HS 18.80 pg/mL Normal 10.10-27.10 [facility] Comment on above: Result Comment: The 95% CI (Confidence Interval) PPV (Positive Predictive Value) for myocardial infarction in females is 38 pg/mL, in males 51 pg/mL. The results should be used in conjunction with clinical conditions of myocardial infarction. (Access High Sensitivity Troponin I Instructions For Use, [employer], February 2018) Performed By: #### 2 [id number] #### [facility] [address] [place] [address] Troponin 1 Hr.on 05-24-2024 Troponin HS 21.20 pg/mL Normal 10.10-27.10 [facility] Comment on above: Result Comment: The 95% CI (Confidence Interval) PPV (Positive Predictive Value) for myocardial infarction in females is 38 pg/mL, in males 51 pg/mL. The results should be used in conjunction with clinical conditions of myocardial infarction. (Access High Sensitivity Troponin I Instructions For Use, [employer], February 2018) Performed By: #### 1 [id number] #### [facility] [address] [place] [address] eGFRon 05-24-2024 eGFR 118 mL/min/1.73 m2 Normal >=59 [facility] Comment on above: Performed By: #### 1 [id number] #### [facility] [address] [place] [address] ECG 12 Leadon 05-19-2024 ECG revealed normal sinus rhythm, normal ECG [facility] Work Phone: Inpatient Clinical Summaryon 05-19-2024 Inpatient Clinical Summary Inpatient Clinical Summary [address] [address] Clinical Summary Person Information Name: ILDA VIERA [place] Age: 39 Years : 1985 Sex: Female PCP: Linda Lutz Marital Status: Phone: [phone] Race: White Ethnicity: Non- or Language: Icelandic Visit Id: Visit Reason: NST Speciality: Acuity: Enc Type: Outpatient Med Service: Obstetrics Arrival: 05/19/2024 12:04:57 Discharge: 05/19/2024 12:50:00 Dispo Type: Home (Routine DC) Address: [address] [place] [address] [address] [facility] [phone] Provider Notes: Diagnosis: Problems Active (04/01/2024) Iron deficiency anemia of mother during B12 deficiency anemia Elevated total protein Currently BMI 39.0-39.9,adult Fatty liver Obesity (BMI 30-39.9) Elevated blood pressure reading without diagnosis of hypertension Fatigue Wellness examination Bipolar disorder (08/28/2017) Depressive disorder in mother complicating (08/28/2017) High risk (08/28/2017) Androgen level above reference range (03/14/2023) Maternal obesity complicating , childbirth and the puerperium, antepartum (08/28/2017) Obesity caused by energy imbalance (03/14/2023) Serum testosterone level outside reference range Sinusitis Recurrent sinusitis High serum testosterone Current non-smoker Polycystic ovary syndrome Vitamin D deficiency Hypothyroid Hyperinsulinemia Smoking Status: Functional Status: Sensory Deficits: History of Falls: Mobility Assistance Prior to Admission: ADLs: Current Level of Assistance for Self-Care/Mobility: Cognitive Status: Allergies Nubain (hallucin) (Hallucination) Alcohol (Anaphylaxis) Laboratory or Other Results This Visit (last charted value for your 05/19/2024 visit) No Laboratory or Other Results This Visit Measurements: Height: Weight: Blood Pressure: Not Valued / Not Valued BMI: Procedures No Procedures Documented Immunizations No Immunizations Documented This Visit Final Med List: albuterol (Albuterol (Eqv-ProAir HFA) 90 mcg/inh inhalation aerosol) 2 Puffs Inhalation every 4 hours. Refills: 0. cholecalciferol (cholecalciferol 50,000 intl units oral capsule) 1 Capsules By Mouth every 7 days. Refills: 1. ferrous sulfate (Slow Iron) fluticasone nasal (fluticasone 0.05 mg/inh Nasal [place]) 1 Sprays Nasal Inhalation every day as needed Allergy symptoms. lamotrigine (lamotrigine 150 mg Tab) 2 Tablets By Mouth every day. Refills: 5. levothyroxine (Levoxyl 137 mcg (0.137 mg) oral tablet) 1 Tablets By Mouth every day. metformin (metformin 1000 mg Tab) 1 Tablets By Mouth 2 times a day. Refills: 3. metoprolol (metoprolol succinate 50 mg ER Tab) 2 times a day. multivitamin, (M-Jacinta Plus oral tablet) ondansetron (ondansetron 4 mg Tab) 1 Tablets By Mouth every 8 hours as needed Nausea/Vomiting. Care Team Members: Attending Physician: Neva Pearson DO Consulting Physician: Referring Physician: Follow up: Type Location Start Finish State ONC Injection (FT) FT.[email or web address] 05/19/2024 1:30 PM 05/19/2024 1:45 PM Confirmed ONC Office Visit 20 (FT) FT.ONCOLOGY 06/15/2024 2:00 PM 06/15/2024 2:20 PM Confirmed ONC Injection (FT) FT.ONCOLOGY 06/15/2024 2:15 PM 06/15/2024 2:30 PM Confirmed Patient Education Information: Normal [facility] Inpatient Patient Summaryon 05-19-2024 Inpatient Patient Summary Inpatient Patient Summary [place] [address] Patient Discharge Instructions PERSON INFORMATION Name: ILDA VIERA Date of : 1985 Current Date: 05/19/2024 13:19:37 PHYSICIANS Admitting Physician: Neva Pearson DO Primary Care Physician: Linda Lutz PCP Comment: Discharge Diagnosis: Condition at Discharge: Stable ILDA VIERA has been given the following list of follow-up instructions, prescriptions, and patient education materials: PATIENT FOLLOW-UP INFORMATION Diet: Activity: Wound Care Instructions: Remove Your Dressing IN: Days Call Your Doctor For: IF UNABLE TO CONTACT YOUR PHYSICIAN AND YOU FEEL IT IS AN EMERGENCY, GO TO THE NEAREST EMERGENCY ROOM OR CALL 911 Home Treatment: Devices/Equipment: Special Services: Additional Instructions: Physician to provide the following pending test results: None Follow up: In the event that this physician does not participate in your insurance network, please consult with your insurance company to find a nearby participating provider. Type Location Start Finish State ONC Injection (FT) FT.ONCOLOGY 05/19/2024 1:30 PM 05/19/2024 1:45 PM Confirmed ONC Office Visit 20 (FT) FT.ONCOLOGY 06/15/2024 2:00 PM 06/15/2024 2:20 PM Confirmed ONC Injection (FT) FT.ONCOLOGY 06/15/2024 2:15 PM 06/15/2024 2:30 PM Confirmed Comment: ISALVADOR ASHLEE K, have received the attached patient education materials/instructions and have verbalized understanding. Patient Signature ____ Date Clinican/Nurse Signature Date MEDICATION LIST Medications to Continue with No Changes Other Medications albuterol (Albuterol (Eqv-ProAir HFA) 90 mcg/inh inhalation aerosol) 2 Puffs Inhalation every 4 hours. Refills: 0. Last Dose: Next Dose: cholecalciferol (cholecalciferol 50,000 intl units oral capsule) 1 Capsules By Mouth every 7 days. Refills: 1. Last Dose: Next Dose: ferrous sulfate (Slow Iron) , 65 mg BID Last Dose: Next Dose: fluticasone nasal (fluticasone 0.05 mg/inh Nasal [place]) 1 Sprays Nasal Inhalation every day as needed Allergy symptoms. Last Dose: Next Dose: lamotrigine (lamotrigine 150 mg Tab) 2 Tablets By Mouth every day. Refills: 5. Last Dose: Next Dose: levothyroxine (Levoxyl 137 mcg (0.137 mg) oral tablet) 1 Tablets By Mouth every day. Last Dose: Next Dose: metformin (metformin 1000 mg Tab) 1 Tablets By Mouth 2 times a day. Refills: 3. Last Dose: Next Dose: metoprolol (metoprolol succinate 50 mg ER Tab) 2 times a day. Last Dose: Next Dose: multivitamin, (M- Plus oral tablet) Last Dose: Next Dose: ondansetron (ondansetron 4 mg Tab) 1 Tablets By Mouth every 8 hours as needed Nausea/Vomiting. Last Dose: Next Dose: Pharmacy Information: [facility]QU[facility] Medeiros , [facility] PATIENT EDUCATION INFORMATION Instructions: Medication Leaflets: You may receive a survey from [employer] asking you to rate your care experience. Your feedback is important and will help us understand what we do well and how we can improve the quality of care we provide to you, your loved ones and our community. It???s an honor to serve you. Patient Portal You may access all of your results and other medical record information on our secure patient portal. If you are not signed up for this yet, please contact [employer] at [phone] to get signed up today. JESSENIA Award Nomination The JESSENIA (Diseases Attacking the Immune SYstem) Award is an international recognition program that honors and celebrates the skillful, compassionate care nurses provide every day. Anyone who experiences or observes amazing care being provided by a nurse is encouraged to submit a nomination. To nominate your nurse, use your smart phone to scan the QR code below. Thank you for choosing [facility] Normal [facility] Inpatient Clinical Summaryon 05-11-2024 Inpatient Clinical Summary Inpatient Clinical Summary [facility] [address] [place], [place] [address] Clinical Summary Person Information Name: ILDA VIERA [place] Age: 39 Years : 1985 Sex: Female PCP: Linda Lutz Marital Status: Phone: [phone] Race: White Ethnicity: Non- or Language: Icelandic Visit Id: Visit Reason: NST Speciality: Acuity: Enc Type: Outpatient Med Service: Obstetrics Arrival: 05/11/2024 10:00:35 Discharge: 05/11/2024 10:35:00 Dispo Type: Home (Routine DC) Address: [address] [place] [address] [address] [facility] [id number] Provider Notes: Diagnosis: Problems Active (04/01/2024) Iron deficiency anemia of mother during B12 deficiency anemia Elevated total protein Currently BMI 39.0-39.9,adult Fatty liver Obesity (BMI 30-39.9) Elevated blood pressure reading without diagnosis of hypertension Fatigue Wellness examination Bipolar disorder (08/28/2017) Depressive disorder in mother complicating (08/28/2017) High risk (08/28/2017) Androgen level above reference range (03/14/2023) Maternal obesity complicating , childbirth and the puerperium, antepartum (08/28/2017) Obesity caused by energy imbalance (03/14/2023) Serum testosterone level outside reference range Sinusitis Recurrent sinusitis High serum testosterone Current non-smoker Polycystic ovary syndrome Vitamin D deficiency Hypothyroid Hyperinsulinemia Smoking Status: Functional Status: Sensory Deficits: History of Falls: Mobility Assistance Prior to Admission: ADLs: Current Level of Assistance for Self-Care/Mobility: Cognitive Status: Allergies Nubain (hallucin) (Hallucination) Alcohol (Anaphylaxis) Laboratory or Other Results This Visit (last charted value for your 05/11/2024 visit) No Laboratory or Other Results This Visit Measurements: Height: Weight: Blood Pressure: Not Valued / Not Valued BMI: Procedures No Procedures Documented Immunizations No Immunizations Documented This Visit Final Med List: albuterol (Albuterol (Eqv-ProAir HFA) 90 mcg/inh inhalation aerosol) 2 Puffs Inhalation every 4 hours. Refills: 0. cholecalciferol (cholecalciferol 50,000 intl units oral capsule) 1 Capsules By Mouth every 7 days. Refills: 1. ferrous sulfate (Slow Iron) fluticasone nasal (fluticasone 0.05 mg/inh Nasal [place]) 1 Sprays Nasal Inhalation every day as needed Allergy symptoms. lamotrigine (lamotrigine 150 mg Tab) 2 Tablets By Mouth every day. Refills: 5. levothyroxine (Levoxyl 137 mcg (0.137 mg) oral tablet) 1 Tablets By Mouth every day. metformin (metformin 1000 mg Tab) 1 Tablets By Mouth 2 times a day. Refills: 3. metoprolol (metoprolol succinate 50 mg ER Tab) 2 times a day. multivitamin, (M- Plus oral tablet) ondansetron (ondansetron 4 mg Tab) 1 Tablets By Mouth every 8 hours as needed Nausea/Vomiting. Care Team Members: Attending Physician: Neva Pearson DO Consulting Physician: Referring Physician: Follow up: Type Location Start Finish State ONC Injection (FT) FT.[email or web address] 05/11/2024 2:00 PM 05/11/2024 2:15 PM Confirmed ONC Injection (FT) FT.[email or web address] 05/18/2024 1:00 PM 05/18/2024 1:15 PM Confirmed ONC Office Visit 20 (FT) FT.[email or web address] 06/15/2024 2:00 PM 06/15/2024 2:20 PM Confirmed ONC Injection (FT) FT.[email or web address] 06/15/2024 2:15 PM 06/15/2024 2:30 PM Confirmed Patient Education Information: Normal [facility] Inpatient Patient Summaryon 05-11-2024 Inpatient Patient Summary Inpatient Patient Summary [place] [address] Patient Discharge Instructions PERSON INFORMATION Name: ILDA VIERA Date of : 1985 Current Date: 05/11/2024 10:53:01 PHYSICIANS Admitting Physician: Neva Pearson DO Primary Care Physician: Linda Lutz PCP Comment: Discharge Diagnosis: Condition at Discharge: SALVADORILDA has been given the following list of follow-up instructions, prescriptions, and patient education materials: PATIENT FOLLOW-UP INFORMATION Diet: Activity: Wound Care Instructions: Remove Your Dressing IN: Days Call Your Doctor For: IF UNABLE TO CONTACT YOUR PHYSICIAN AND YOU FEEL IT IS AN EMERGENCY, GO TO THE NEAREST EMERGENCY ROOM OR CALL 911 Home Treatment: Devices/Equipment: Special Services: Additional Instructions: Physician to provide the following pending test results: Follow up: In the event that this physician does not participate in your insurance network, please consult with your insurance company to find a nearby participating provider. Type Location Start Finish State ONC Injection (FT) FT.[email or web address] 05/11/2024 2:00 PM 05/11/2024 2:15 PM Confirmed ONC Injection (FT) FT.[email or web address] 05/18/2024 1:00 PM 05/18/2024 1:15 PM Confirmed ONC Office Visit 20 (FT) FT.[email or web address] 06/15/2024 2:00 PM 06/15/2024 2:20 PM Confirmed ONC Injection (FT) FT.ONCOLOGY 06/15/2024 2:15 PM 06/15/2024 2:30 PM Confirmed Comment: SALVADOR Boyle ASHLEE K, have received the attached patient education materials/instructions and have verbalized understanding. Patient Signature ____ Date Clinican/Nurse Signature Date MEDICATION LIST Medications to Continue with No Changes Other Medications albuterol (Albuterol (Eqv-ProAir HFA) 90 mcg/inh inhalation aerosol) 2 Puffs Inhalation every 4 hours. Refills: 0. Last Dose: Next Dose: cholecalciferol (cholecalciferol 50,000 intl units oral capsule) 1 Capsules By Mouth every 7 days. Refills: 1. Last Dose: Next Dose: ferrous sulfate (Slow Iron) , 65 mg BID Last Dose: Next Dose: fluticasone nasal (fluticasone 0.05 mg/inh Nasal [place]) 1 Sprays Nasal Inhalation every day as needed Allergy symptoms. Last Dose: Next Dose: lamotrigine (lamotrigine 150 mg Tab) 2 Tablets By Mouth every day. Refills: 5. Last Dose: Next Dose: levothyroxine (Levoxyl 137 mcg (0.137 mg) oral tablet) 1 Tablets By Mouth every day. Last Dose: Next Dose: metformin (metformin 1000 mg Tab) 1 Tablets By Mouth 2 times a day. Refills: 3. Last Dose: Next Dose: metoprolol (metoprolol succinate 50 mg ER Tab) 2 times a day. Last Dose: Next Dose: multivitamin, (M- Plus oral tablet) Last Dose: Next Dose: ondansetron (ondansetron 4 mg Tab) 1 Tablets By Mouth every 8 hours as needed Nausea/Vomiting. Last Dose: Next Dose: Pharmacy Information: PATIENT EDUCATION INFORMATION Instructions: Medication Leaflets: You may receive a survey from [employer] asking you to rate your care experience. Your feedback is important and will help us understand what we do well and how we can improve the quality of care we provide to you, your loved ones and our community. It?s an honor to serve you. Patient Portal You may access all of your results and other medical record information on our secure patient portal. If you are not signed up for this yet, please contact [employer] at [phone] to get signed up today. JESSENIA Award Nomination The JESSENIA (Diseases Attacking the Immune SYstem) Award is an international recognition program that honors and celebrates the skillful, compassionate care nurses provide every day. Anyone who experiences or observes amazing care being provided by a nurse is encouraged to submit a nomination. To nominate your nurse, use your smart phone to scan the QR code below. Thank you for choosing [facility] Prescriptions/Work Noteson 1 Prescriptions/Work Notes Prescriptions/Work Notes Patient: ILDA VIERA Age: 39 years Sex: Female : 1985 Associated Diagnoses: None Author: Sonny POWER, Arline Rodriguez Basic Information No qualifying data available /Para: Para Information: : 7 Para Term: 5 Para : 0 Para Abortions: 2 Para Livin. Include all results : NST results 05/11/2024 10:32 EDT Monitoring Annotation Non-Stress Test 05/11/2024 10:08 EDT Physician Order NST 05/11/2024 10:02 EDT Consent for Treatment CONSENT FOR TREATMENT 05/04/2024 23:59 EDT Coding Summary. Coding Summary. 05/04/2024 14:06 EDT cyanocobalamin 1,000 mcg mcg 05/04/2024 13:53 EDT Consent for Treatment Consent for Treatment 04/27/2024 23:59 EDT Coding Summary. Coding Summary. 04/27/2024 14:30 EDT cyanocobalamin 1,000 mcg mcg 04/20/2024 10:06 EDT Message - General Office Iron transfusion recieved while inpt (Modified) 04/17/2024 23:53 EDT Transfer Documents 04/17/2024 22:[address] Schmid Transportation Provider [facility] Accepting Transfer Facility [facility] Room Number of Receiving Facility 5091-A Transport Arrives 04/17/2024 21:40 Transport Departs 04/17/2024 21:55 Receiving Facility Report Number Person Receiving Patient Report JANNET Polo Chart Sent w/Pt for Transfer Yes 04/17/2024 21:50 EDT ED Patient Education Note ED Patient Education Note ED Patient Summary ED Patient Summary 04/17/2024 21:49 EDT ED Clinical Summary ED Clinical Summary 04/17/2024 21:46 EDT Coding Summary. Coding Summary. 04/17/2024 21:46 EDT Critical Care Time 30 minute(s) (Modified) 04/17/2024 21:42 EDT Monitor Record Monitor Record 04/17/2024 21:30 EDT Heart Rate Monitored 104 bpm HI Respiratory Rate Monitored 21 br/min Systolic Blood Pressure 145 mmHg HI Diastolic Blood Pressure 91 mmHg HI Mean Arterial Pressure, Cuff 109 mmHg SpO2 97 % Oxygen Therapy Room air 04/17/2024 21:03 EDT Patient Reassessment No change in assessment 04/17/2024 21:00 EDT Heart Rate Monitored 104 bpm HI Respiratory Rate Monitored 18 br/min Systolic Blood Pressure 149 mmHg HI Diastolic Blood Pressure 91 mmHg HI Mean Arterial Pressure, Cuff 110 mmHg SpO2 98 % Oxygen Therapy Room air 04/17/2024 20:00 EDT Heart Rate Monitored 99 bpm Respiratory Rate Monitored 27 br/min Systolic Blood Pressure 141 mmHg HI Diastolic Blood Pressure 75 mmHg Mean Arterial Pressure, Cuff 97 mmHg SpO2 97 % Oxygen Therapy Room air Patient Reassessment No change in assessment 04/17/2024 19:35 EDT Heart Rate Monitored 102 bpm HI Respiratory Rate Monitored 22 br/min Systolic Blood Pressure 154 mmHg HI Diastolic Blood Pressure 85 mmHg Mean Arterial Pressure, Cuff 108 mmHg SpO2 97 % Oxygen Therapy Room air 04/17/2024 19:13 EDT Observation Comment ambulated to bathroom 04/17/2024 19:00 EDT Heart Rate Monitored 111 bpm HI Respiratory Rate Monitored 17 br/min Systolic Blood Pressure 127 mmHg Diastolic Blood Pressure 88 mmHg Mean Arterial Pressure, Cuff 101 mmHg SpO2 97 % Oxygen Therapy Room air Patient Reassessment No change in assessment Urine Count 1 04/17/2024 18:30 EDT Heart Rate Monitored 101 bpm HI Respiratory Rate Monitored 22 br/min Systolic Blood Pressure 136 mmHg Diastolic Blood Pressure 92 mmHg HI Mean Arterial Pressure, Cuff 107 mmHg SpO2 99 % Oxygen Therapy Room air 04/17/2024 18:27 EDT ECG 12-Lead Signed 04/17/2024 18:09 EDT Observation Comment provided pt with dietary tray 04/17/2024 18:05 EDT Numeric Pain Scale 7 acetaminophen 650 mg mg 04/17/2024 18:01 EDT Troponin HS 93.20 pg/mL CRIT 04/17/2024 18:00 EDT Heart Rate Monitored 98 bpm Respiratory Rate Monitored 20 br/min Systolic Blood Pressure 126 mmHg Diastolic Blood Pressure 81 mmHg Mean Arterial Pressure, Cuff 96 mmHg SpO2 97 % Oxygen Therapy Room air 04/17/2024 17:33 EDT Heart Rate Monitored 103 bpm HI Respiratory Rate Monitored 20 br/min Systolic Blood Pressure 122 mmHg Diastolic Blood Pressure 83 mmHg Mean Arterial Pressure, Cuff 96 mmHg SpO2 97 % Oxygen Therapy Room air Patient Reassessment No change in assessment 04/17/2024 17:00 EDT Heart Rate Monitored 93 bpm Respiratory Rate Monitored 16 br/min Systolic Blood Pressure 129 mmHg Diastolic Blood Pressure 86 mmHg Mean Arterial Pressure, Cuff 100 mmHg SpO2 97 % Oxygen Therapy Room air Observation Comment food tray ordered for pt 04/17/2024 16:00 EDT Heart Rate Monitored 100 bpm Respiratory Rate Monitored 20 br/min Systolic Blood Pressure 124 mmHg Diastolic Blood Pressure 86 mmHg Mean Arterial Pressure, Cuff 99 mmHg SpO2 96 % Oxygen Therapy Room air 04/17/2024 15:30 EDT Heart Rate Monitored 111 bpm HI Respiratory Rate Monitored 15 br/min Systolic Blood Pressure 132 mmHg Diastolic Blood Pressure 83 mmHg Mean Arterial Pressure, Cuff 99 mmHg SpO2 97 % Oxygen Therapy Room air Patient Reassessment No change in assessment 04/17/2024 15:00 ED (more content not included)... Normal [facility] No Panel Informationon 05-06 Glucose, UA Negative Negative - 1999(110) ++++ mg/dL [facility] Interpretation and review of laboratory results Normal [facility] Protein, UA Trace Negative - 1999(20) ++++ mg/dL [facility] No Panel Informationon 04-23 Glucose, UA Negative Negative - 1999(110) ++++ mg/dL [facility] Leukocytes, UA Negative Negative - 500+++ Nico/mcL [facility] Nitrite, UA Negative Negative - Positive [facility] Protein, UA Negative Negative - 2000(20) ++++ mg/dL [facility] Glucose Test strip manual (B ld) [Mass/Vol]on 04-20-2024 Glucose [Mass/Vol] 91 mg/dL 74 - 99 mg/dL [facility] Interpretation and review of laboratory results Normal [facility] Glucose [Mass/Vol] 91 mg/dL Normal 74-99 [facility] Comment on above: Performed By: #### 2 4323-8 #### MIN Zamroa ([id number]) [facility] ([facility]) [address] [place] [address] Glucose [Mass/Vol] 84 mg/dL 74 - 99 mg/dL [facility] Interpretation and review of laboratory results Normal [facility] Glucose [Mass/Vol] 84 mg/dL Normal 74-99 [facility] Comment on above: Performed By: #### 2 4323-8 #### MIN Zamora ([id number]) [facility] ([facility]) [id number] [place] [address] US OB 14+ WEEKS ANATOMY SCAN on 04-20-2024 US OB 14+ WEEKS ANATOMY SCAN Interpreted by: Zeina Parham Indication ======== Third Trimester Scan for ,?Inpatient, Class 3 Obesity (BMI > 40), AMA Multigravida History ====== General History Height 157 cm Height (ft) 5 ft Height (in) 2 in Previous Outcomes 8 Para 6 Children born living ?37w 6 Pregnancies delivered at term (T) 6 Abortions (A) 1 Living children (L) 6 Miscarriages 1 Other: Vaginal Delivery Maternal Assessment Height 157 cm Height (ft) 5 ft Height (in) 2 in Weight 106 kg Weight (lb) 233 lb Weight gain 0 kg Weight gain (lb) 0 lb BMI 42.62 kg/m??? Physical Exam Initial weight (lb) 233 lb ========= Ambrocio . Number of fetuses: 1 Dating ====== GA by prior assessment 31 w + 2 d ALICE by prior assessment: 06/20/2024 Ultrasound examination on: 04/20/2024 GA by U/S based upon: AC, BPD, Femur, HC GA by U/S 33 w + 2 d ALICE by U/S: 06/06/2024 Assigned: based on stated ALICE, selected on 04/20/2024 Assigned GA 31 w + 2 d Assigned ALICE: 06/20/2024 Growth Overview Exam date GA BPD (mm) HC (mm) AC (mm) FL (mm) HL (mm) EFW (g) 04/20/2024 31w 2d 80.2 68% 305.2 84% 291.8 92% 65.6 93% 55.8 76% 2175 94% Impression ========= Late sonographic evaluation. A targeted anatomic survey was indicated due to AMA and class III obesity. She is currently admitted due to maternal SVT. - biometry is consistent with the stated gestational age, LGA growth pattern noted -Detailed anatomic evaluation of the brain/ventricles, face, heart/outflow tracts and chest anatomy, abdominal organ specific anatomy, number/length/architectur e of limbs and detailed evaluation of the umbilical cord and placenta and other anatomy as clinically indicated was attempted. The following structures were not visualized adequately: lumbar and sacral spine, RVOT, ACI, distal extremities. -No malformations were identified on this incomplete survey within limitations of sonographic evaluation at this gestational age. -BPP 02/26 Though biometry is within confidence intervals for the stated gestational age, adequate growth velocity cannot be determined on a single evaluation. Thank you allowing us to participate in the care of your patient General Evaluation Cardiac activity present. FHR 137 bpm. movements: visualized. Presentation: breech, Variable Placenta: Placental site: anterior, high Umbilical cord: Cord vessels: 3 vessel cord. Insertion site: Suboptimal Amniotic fluid: Amount of AF: normal amount. MVP 5.3 cm. MARICRUZ 15.3 cm. Q1 3.5 cm, Q2 5.3 cm, Q3 3.5 cm, Q4 3.0 cm Biometry Standard BPD 80.2 mm 32w 1d 68% Hadlock OFD 111.2 mm >99% INTERGROWTH-21st HC 305.2 mm 34w 0d 84% Hadlock Cerebellum tr 42.8 mm 33w 3d 93% Ramon AC 291.8 mm 33w 1d 92% Hadlock Femur 65.6 mm 33w 6d 93% Hadlock Humerus 55.8 mm 76% Chitty HC / AC 1.05 EFW 2,175 g 33w 0d 94% Hadlock EFW (lb) 4 lb EFW (oz) 13 oz EFW by: Hadlock ([id number]) Extended Artist Representative 3.4 mm Head / Face / Neck Cephalic index 0.72 1% Nicolaides Extremities / Bony Struc FL / BPD 0.82 FL / HC 0.21 FL / AC 0.22 Other Structures FHR 137 bpm Anatomy Cranium: Normal Lateral ventricles: Normal Midline falx: Normal Cavum septi pellucidi: Normal Cerebellum: Normal Head / Neck Thalami: Normal Lips: Normal Profile: Normal Nose: Normal 4-chamber view: Normal LVOT view: Normal 3-vessel view: Normal Heart / Thorax Cardiac axis: Normal Diaphragm: Normal Cord insertion: suboptimal Stomach: Visible, with correct situs Kidneys: Normal Bladder: Visible Abdomen Abdom. wall: suboptimal Rt kidney: Normal Lt kidney: Normal Large bowel: Normal Cervical spine: Normal Thoracic spine: Normal Lumbar spine: suboptimal Sacral spine: suboptimal Arms: Both Upper Extremities Seen Legs: Both Lower Extremities Seen sex: male Wants to know sex: yes Biophysical Profile 2: breathing movements 2: Gross body movements 2: tone 2: Amniotic fluid volume 02/26 Biophysical profile score Maternal Structures Uterus / Cervix Uterus: Visualized Cervix: Not visualized Ovaries / Tubes / Adnexa Rt ovary: Not visualized Lt ovary: Not visualized Method ====== Transabdominal ultrasound examination. View: Poor view Normal [facility] US for in second o r third trimesteron 04-20-2024 Interpreted by: Zeina Sims Indication ======== Third Trimester Scan for ,?Inpatient, Class 3 Obesity (BMI > 40), AMA Multigravida History ====== General History Height 157 cm Height (ft) 5 ft Height (in) 2 in Previous Outcomes 8 Para 6 Children born living ?37w 6 Pregnancies delivered at term (T) 6 Abortions (A) 1 Living children (L) 6 Miscarriages 1 Other: Vaginal Delivery Maternal Assessment Height 157 cm Height (ft) 5 ft Height (in) 2 in Weight 106 kg Weight (lb) 233 lb Weight gain 0 kg Weight gain (lb) 0 lb BMI 42.62 kg/m Physical Exam Initial weight (lb) 233 lb ========= Ambrocio . Number of fetuses: 1 Dating ====== GA by prior assessment 31 w + 2 d ALICE by prior assessment: 06/20/2024 Ultrasound examination on: 04/20/2024 GA by U/S based upon: AC, BPD, Femur, HC GA by U/S 33 w + 2 d ALICE by U/S: 06/06/2024 Assigned: based on stated ALICE, selected on 04/20/2024 Assigned GA 31 w + 2 d Assigned ALICE: 06/20/2024 Growth Overview Exam date GA BPD (mm) HC (mm) AC (mm) FL (mm) HL (mm) EFW (g) 04/20/2024 31w 2d 80.2 68% 305.2 84% 291.8 92% 65.6 93% 55.8 76% 2175 94% Impression ========= Late sonographic evaluation. A targeted anatomic survey was indicated due to AMA and class III obesity. She is currently admitted due to maternal SVT. - biometry is consistent with the stated gestational age, LGA growth pattern noted -Detailed anatomic evaluation of the brain/ventricles, face, heart/outflow tracts and chest anatomy, abdominal organ specific anatomy, number/length/architectur e of limbs and detailed evaluation of the umbilical cord and placenta and other anatomy as clinically indicated was attempted. The following structures were not visualized adequately: lumbar and sacral spine, RVOT, ACI, distal extremities. -No malformations were identified on this incomplete survey within limitations of sonographic evaluation at this gestational age. -BPP 02/26 Though biometry is within confidence intervals for the stated gestational age, adequate growth velocity cannot be determined on a single evaluation. Thank you allowing us to participate in the care of your patient General Evaluation Cardiac activity present. FHR 137 bpm. movements: visualized. Presentation: breech, Variable Placenta: Placental site: anterior, high Umbilical cord: Cord vessels: 3 vessel cord. Insertion site: Suboptimal Amniotic fluid: Amount of AF: normal amount. MVP 5.3 cm. MARICRUZ 15.3 cm. Q1 3.5 cm, Q2 5.3 cm, Q3 3.5 cm, Q4 3.0 cm Biometry Standard BPD 80.2 mm 32w 1d 68% Hadlock OFD 111.2 mm >99% INTERGROWTH-21st HC 305.2 mm 34w 0d 84% Hadlock Cerebellum tr 42.8 mm 33w 3d 93% Ramon AC 291.8 mm 33w 1d 92% Hadlock Femur 65.6 mm 33w 6d 93% Hadlock Humerus 55.8 mm 76% Chitty HC / AC 1.05 EFW 2,175 g 33w 0d 94% Hadlock EFW (lb) 4 lb EFW (oz) 13 oz EFW by: Hadlock (WTA-XN-PS-FL) Extended Artist Representative 3.4 mm Head / Face / Neck Cephalic index 0.72 1% Nicolaides Extremities / Bony Struc FL / BPD 0.82 FL / HC 0.21 FL / AC 0.22 Other Structures FHR 137 bpm Anatomy Cranium: Normal Lateral ventricles: Normal Midline falx: Normal Cavum septi pellucidi: Normal Cerebellum: Normal Head / Neck Thalami: Normal Lips: Normal Profile: Normal Nose: Normal 4-chamber view: Normal LVOT view: Normal 3-vessel view: Normal Heart / Thorax Cardiac axis: Normal Diaphragm: Normal Cord insertion: suboptimal Stomach: Visible, with correct situs Kidneys: Normal Bladder: Visible Abdomen Abdom. wall: suboptimal Rt kidney: Normal Lt kidney: Normal Large bowel: Normal Cervical spine: Normal Thoracic spine: Normal Lumbar spine: suboptimal Sacral spine: suboptimal Arms: Both Upper Extremities Seen Legs: Both Lower Extremities Seen sex: male Wants to know sex: yes Biophysical Profile 2: breathing movements 2: Gross body movements 2: tone 2: Amniotic fluid volume 02/26 Biophysical profile score Maternal Structures Uterus / Cervix Uterus: Visualized Cervix: Not visualized Ovaries / Tubes / Adnexa Rt ovary: Not visualized Lt ovary: Not visualized Method ====== Transabdominal ultrasound examination. View: Poor view [facility] Zeina Parham M D - 04/20/2024 Interpreted by: Zeina Parham Indication ======== Third Trimester Scan for ,?Inpatient, Class 3 Obesity (BMI > 40), AMA Multigravida History ====== General History Retvxg622 cm Height (ft)5 ft Height (in)2 in Previous Outcomes Gravida8 Para6 Children born living ?37w6 Pregnancies delivered at term (T)6 Abortions (A)1 Living children (L)6 Miscarriages1 Other:Vaginal Delivery Maternal Assessment Azuteh801 cm Height (ft)5 ft Height (in)2 in Dpwbjn246 kg Weight (lb)233 lb Weight gain0 kg Weight gain (lb)0 lb BMI42.62 kg/m Physical Exam Initial weight (lb)233 lb ========= Ambrocio . Number of fetuses: 1 Dating ====== GA by prior [id number] w + 2 d ALICE by prior assessment:06/20/2024 Ultrasound examination on:04/20/2024 GA by U/S based upon:AC, BPD, Femur, HC GA by U/S33 w + 2 d ALICE by U/S:06/06/2024 Assigned:based on stated ALICE, selected on 04/20/2024 Assigned GA31 w + 2 d Assigned ALICE:06/20/2024 Growth Overview Exam date GA BPD (mm) HC (mm) AC (mm) FL (mm) HL (mm) EFW (g) 04/20/2024 31w 2d 80.2 68% 305.2 84% 291.8 92% 65.6 93% 55.8 76% 2175 94% Impression ========= Late sonographic evaluation. A targeted anatomic survey was indicated due to AMA and class III obesity. She is currently admitted due to maternal SVT. - biometry is consistent with the stated gestational age, LGA growth pattern noted -Detailed anatomic evaluation of the brain/ventricles, face, heart/outflow tracts and chest anatomy, abdominal organ specific anatomy, number/length/architectur e of limbs and detailed evaluation of the umbilical cord and placenta and other anatomy as clinically indicated was attempted. The following structures were not visualized adequately: lumbar and sacral spine, RVOT, ACI, distal extremities. -No malformations were identified on this incomplete survey within limitations of sonographic evaluation at this gestational age. -BPP 02/26 Though biometry is within confidence intervals for the stated gestational age, adequate growth velocity cannot be determined on a single evaluation. Thank you allowing us to participate in the care of your patient General Evaluation Cardiac activity present. FHR 137 bpm. movements: visualized. Presentation: breech, Variable Placenta: Placental site: anterior, high Umbilical cord: Cord vessels: 3 vessel cord. Insertion site: Suboptimal Amniotic fluid: Amount of AF: normal amount. MVP 5.3 cm. MARICRUZ 15.3 cm. Q1 3.5 cm, Q2 5.3 cm, Q3 3.5 cm, Q4 3.0 cm Biometry Standard BPD80.2 mm32w 1d 68% Hadlock WXR999.2 mm >99% INTERGROWTH-21st HC305.2 mm34w 0d 84% Hadlock Cerebellum tr42.8 mm33w 3d 93% Ramon AC291.8 mm33w 1d 92% Hadlock Femur65.6 mm33w 6d 93% Hadlock Betckwd11.8 mm 76% Chitty HC / AC1.05 EFW2,175 g33w 0d 94% Hadlock EFW (lb)4 lb EFW (oz)13 oz EFW by:Hadlock (SME-MO-VJ-FL) Extended Vp3.4 mm Head / Face / Neck Cephalic index0.72 1% Nicolaides Extremities / Bony Struc FL / BPD0.82 FL / HC0.21 FL / AC0.22 Other Structures QWK937 bpm Anatomy Cranium:Normal Lateral ventricles:Normal Midline falx:Normal Cavum septi pellucidi:Normal Cerebellum:Normal Head / Neck Thalami:Normal Lips:Normal Profile:Normal Nose:Normal 4-chamber view:Normal LVOT view:Normal 3-vessel view:Normal Heart / Thorax Cardiac axis:Normal Diaphragm:Normal Cord insertion:suboptimal Stomach:Visible, with correct situs Kidneys:Normal Bladder:Visible Abdomen Abdom. wall:suboptimal Rt kidney:Normal Lt kidney:Normal Large bowel:Normal Cervical spine:Normal Thoracic spine:Normal Lumbar spine:suboptimal Sacral spine:suboptimal Arms:Both Upper Extremities Seen Legs:Both Lower Extremities Seen sex:male Wants to know sex:yes Biophysical Profile 2: breathing movements 2: Gross body movements 2: tone 2: Amniotic fluid volume 02/26 Biophysical profile score Maternal Structures Uterus / Cervix Uterus:Visualized Cervix:Not visualized Ovaries / Tubes / Adnexa Rt ovary:Not visualized Lt ovary:Not visualized Method ====== Transabdominal ultrasound examination. View: Poor view [facility] Work Phone: Radiology Study observation (narrative) [facility] Work Phone: US for in second o r third trimesterOrdered By: Zeina Parham on 04-20-2024 [facility] Work Phone: Glucose Test strip manual (B ld) [Mass/Vol]on 04-19-2024 Glucose [Mass/Vol] 97 mg/dL 74 - 99 mg/dL [facility] Interpretation and review of laboratory results Normal [facility] Glucose [Mass/Vol] 97 mg/dL Normal 74-99 [facility] Comment on above: Performed By: #### 2 4323-8 #### MIN Zamora ([id number]) [facility] ([facility]) [address] [place] [address] Glucose [Mass/Vol] 99 mg/dL 74 - 99 mg/dL [facility] Interpretation and review of laboratory results Normal [facility] Glucose [Mass/Vol] 99 mg/dL Normal 74-99 [facility] Comment on above: Performed By: #### 2 4323-8 #### MIN Zamora ([id number]) [facility] ([facility]) [address] [place] [address]1427 Glucose [Mass/Vol] 78 mg/dL 74 - 99 mg/dL [facility] Interpretation and review of laboratory results Normal [facility] Glucose [Mass/Vol] 78 mg/dL Normal 74-99 [facility] Comment on above: Performed By: #### 2 4323-8 #### MIN Zamora ([id number]) [facility] ([facility]) [address] [place] [address] 62660 Basic metabolic 2000 panelon 04-18-2024 Anion gap [Moles/Vol] 14 mmol/L 10 - 2 0 mmol/L [facility] Calcium [Mass/Vol] 8.8 mg/dL 8.6 - 10. 6 mg/dL [facility] Chloride [Moles/Vol] 105 mmol/L 98 - 10 7 mmol/L [facility] CO2 [Moles/Vol] 23 mmol/L 21 - 32 mmol/L [facility] Creatinine [Mass/Vol] 0.41 mg/dL Low 0.50 - 1.05 mg/dL [facility] eGFR - PINF [facility] Comment on above: Calculations of corine mated GFR are performed using the 2020 CKD-EPI Study Refit equation without the race variable for the IDMS-Traceable creatinine methods. https://jasn.asnjournals.org/content/early/ASN.575572 6947 Glucose [Mass/Vol] 90 mg/dL 74 - 99 mg/dL [facility] Interpretation and review of laboratory results Abnormal [facility] Potassium [Moles/Vol] 3.8 mmol/L 3.5 - 5.3 mmol/L [facility] Sodium [Moles/Vol] 138 mmol/L 136 - 145 mmol/L [facility] Urea nitrogen [Mass/Vol] 5 mg/dL Low 6 - 23 mg/dL [facility] Anion gap [Moles/Vol] 14 mmol/L Normal 10-20 [facility] Comment on above: Performed By: #### 8 9577-1 #### MIN Zamora ([id number]) [facility] ([facility]) [id number] [place] [address] Calcium [Mass/Vol] 8.8 mg/dL Normal 8.6-10.6 [facility] Comment on above: Performed By: #### 8 9577-1 #### MIN Zamora ([id number]) [facility] ([facility]) [address] [place] [address] Chloride [Moles/Vol] 105 mmol/L Normal 98-107 [facility] Comment on above: Performed By: #### 8 9577-1 #### MIN Zamora ([id number]) [facility] ([facility]) [address] [place] [address] CO2 [Moles/Vol] 23 mmol/L Normal 21-32 [facility] Comment on above: Performed By: #### 8 9577-1 #### MIN Zamora ([id number]) [facility] ([facility]) [address] [place] [address] Creatinine [Mass/Vol] 0.41 mg/dL Low 0.50-1.05 [facility] Comment on above: Performed By: #### 8 9577-1 #### MIN Zamora ([id number]) [facility] ([facility]) [id number] [place] [address] 69843 GFR/1.73 sq M.predicted MDRD (S/P/Bld) [Vol rate/Area] mL/min/{1.73_m2} Normal >60 [facility] Comment on above: Result Comment: Calc ulations of estimated GFR are performed using the 2020 CKD-EPI Study Refit equation without the race variable for the IDMS-Traceable creatinine methods. https://jasn.asnjournals.org/content//ASN.111067 2108 Performed By: #### 8 9577-1 #### MIN Zamora ([id number]) [facility] ([facility]) [address] [place] [address] Glucose [Mass/Vol] 90 mg/dL Normal 74-99 [facility] Comment on above: Performed By: #### 8 9577-1 #### MIN Zamora ([id number]) [facility] ([facility]) [address] [place] [address] Potassium [Moles/Vol] 3.8 mmol/L Normal 3.5-5.3 [facility] Comment on above: Performed By: #### 8 9577-1 #### MIN Zamora ([id number]) [facility] ([facility]) [address] [place] [address] Sodium [Moles/Vol] 138 mmol/L Normal 136-145 [facility] Comment on above: Performed By: #### 8 9577-1 #### MIN Zamora ([id number]) [facility] ([facility]) [address] [place] [address] 32785 Urea nitrogen [Mass/Vol] 5 mg/dL Low 6-23 [facility] Comment on above: Performed By: #### 8 9577-1 #### MIN Zamora ([id number]) [facility] ([facility]) [address] [place] [address] 82376 Blood type and Indirect anti body screen panel (Bld)on 04-18-2024 ABO group Nom (Bld) O Normal [facility] Comment on above: Performed By: #### 3 4532-2 #### MIN Zamora ([id number]) [facility] ([facility]) [id number] [place] [address] 077[address] Blood group antibody screen Ql Negative [facility] Comment on above: Performed By: #### 3 4532-2 #### MIN Zamora ([id number]) [facility] ([facility]) [address] [place] [address] 50295 D Ag Ql (Bld) Positive [facility] Comment on above: Result Comment: 2nd ABO test required. Order and Collect VERAB Performed By: #### 3 4532-2 #### MIN Zamora ([id number]) [facility] ([facility]) [address] [place] [address] 81298 2nd ABO test require d. Order and Collect VERAB [facility] CBC panel Auto (Bld)on 04-18 Erythrocyte distribution width (RBC) [Ratio] 14.7 % High 11.5 - 14.5 % [facility] Hematocrit (Bld) [Volume fraction] 33.9 % Low 36.0 - 46.0 % [facility] Hemoglobin (Bld) [Mass/Vol] 10.9 g/dL Low 12.0 - 16.0 g/dL [facility] Interpretation and review of laboratory results Abnormal [facility] MCH (RBC) [Entitic mass] 28.9 pg 26.0 - 34.0 pg [facility] MCHC (RBC) [Mass/Vol] 32.2 g/dL 32.0 - 36.0 g/dL [facility] MCV (RBC) [Entitic vol] 90 fL 80 - 100 fL [facility] Nucleated RBC/100 WBC (Bld) [Ratio] 0.0 % [facility] Platelets (Bld) [#/Vol] 248 10*3/uL [facility] RBC (Bld) [#/Vol] 3.77 10*6/uL Low [facility] WBC (Bld) [#/Vol] 7.9 10*3/uL [facility] Erythrocyte distribution width (RBC) [Ratio] 14.7 % High 11.5-14.5 [facility] Comment on above: Performed By: #### 5 8410-2 #### MIN Zamora ([id number]) [facility] ([facility]) [address] [place] [address]390 Hematocrit (Bld) [Volume fraction] 33.9 % Low 36.0-46.0 [facility] Comment on above: Performed By: #### 5 8410-2 #### MIN Zamora ([id number]) [facility] ([facility]) [address] [place] [address] 25550 Hemoglobin (Bld) [Mass/Vol] 10.9 g/dL Low 12.0-16.0 [facility] Comment on above: Performed By: #### 5 8410-2 #### MIN Zamora ([id number]) [facility] ([facility]) [address] [place] [address] 37482 MCH (RBC) [Entitic mass] 28.9 pg Normal 26.0-34.0 [facility] Comment on above: Performed By: #### 5 8410-2 #### MIN Zamora ([id number]) [facility] ([facility]) [address] [place] [address] 22476 MCHC (RBC) [Mass/Vol] 32.2 g/dL Normal 32.0-36.0 [facility] Comment on above: Performed By: #### 5 8410-2 #### MIN Zamora ([id number]) [facility] ([facility]) [address] [place] [address] MCV (RBC) [Entitic vol] 90 fL Normal 80-100 [facility] Comment on above: Performed By: #### 5 8410-2 #### MIN Zamora ([id number]) [facility] ([facility]) [id number] [place] [address] 11839 Nucleated RBC/100 WBC (Bld) [Ratio] 0.0 /100 WBCs Normal 0.0-0.0 [facility] Comment on above: Performed By: #### 5 8410-2 #### MIN Zamora ([id number]) [facility] ([facility]) [id number] [place] [address] 79039 Platelets (Bld) [#/Vol] 248 x10*3/uL Normal 150-450 [facility] Comment on above: Performed By: #### 5 8410-2 #### MIN Zamora ([id number]) [facility] ([facility]) [address] [place] [address] 23478 RBC (Bld) [#/Vol] 3.77 x10*6/uL Low 4.00-5.20 [facility] Comment on above: Performed By: #### 5 8410-2 #### MIN Zamora ([id number]) [facility] ([facility]) [address] [place] [address] 29570 WBC (Bld) [#/Vol] 7.9 x10*3/uL Normal 4.4-11.3 [facility] Comment on above: Performed By: #### 5 8410-2 #### MIN Zamora ([id number]) [facility] ([facility]) [id number] [place] [address] 31117 Comprehensive metabolic 2000 panelon 04-18-2024 Albumin BCP dye [Mass/Vol] 3.5 g/dL 3.4 - 5.0 g/dL [facility] ALP [Catalytic activity/Vol] 146 U/L High 33 - 110 U/L [facility] ALT With P-5'-P [Catalytic activity/Vol] 19 U/L 7 - 45 U/L [facility] Comment on above: Patients treated wit h Sulfasalazine may generate falsely decreased results for ALT. Anion gap [Moles/Vol] 14 mmol/L 10 - 2 0 mmol/L [facility] AST With P-5'-P [Catalytic activity/Vol] 25 U/L 9 - 39 U/L [facility] Comment on above: MILD HEMOLYSIS DETEC IGLESIA. The result may be falsely elevated due to hemolysis or other interferents. Clinical correlation is recommended. Repeat testing may be considered. Bilirubin [Mass/Vol] 0.3 mg/dL 0.0 - 1 .2 mg/dL [facility] Calcium [Mass/Vol] 9.1 mg/dL 8.6 - 10. 6 mg/dL [facility] Chloride [Moles/Vol] 105 mmol/L 98 - 10 7 mmol/L [facility] CO2 [Moles/Vol] 23 mmol/L 21 - 32 mmol/L [facility] Creatinine [Mass/Vol] 0.40 mg/dL Low 0.50 - 1.05 mg/dL [facility] eGFR - PINF [facility] Comment on above: Calculations of corine mated GFR are performed using the 2020 CKD-EPI Study Refit equation without the race variable for the IDMS-Traceable creatinine methods. https://jasn.asnjournals.org/content/early//ASN.246485 6678 Glucose [Mass/Vol] 86 mg/dL 74 - 99 mg/dL [facility] Interpretation and review of laboratory results Abnormal [facility] Potassium [Moles/Vol] 4.2 mmol/L 3.5 - 5.3 mmol/L [facility] Comment on above: MILD HEMOLYSIS DETEC IGLESIA. The result may be falsely elevated due to hemolysis or other interferents. Clinical correlation is recommended. Repeat testing may be considered. Protein [Mass/Vol] 6.9 g/dL 6.4 - 8.2 g/dL [facility] Sodium [Moles/Vol] 138 mmol/L 136 - 145 mmol/L [facility] Urea nitrogen [Mass/Vol] 7 mg/dL 6 - 23 mg/dL [facility] Albumin BCP dye [Mass/Vol] 3.5 g/dL Normal 3.4-5.0 [facility] Comment on above: Performed By: #### 2 4323-8 #### MIN Zamora ([id number]) [facility] ([facility]) [address] [place] [address] ALP [Catalytic activity/Vol] 146 U/L High 33-110 [facility] Comment on above: Performed By: #### 2 4323-8 #### MIN Zamora ([id number]) [facility] ([facility]) [id number] [place] [address] ALT With P-5'-P [Catalytic activity/Vol] 19 U/L Normal 7-45 [facility] Comment on above: Result Comment: Anne-Marie ents treated with Sulfasalazine may generate falsely decreased results for ALT. Performed By: #### 2 4323-8 #### MIN Zamora ([id number]) [facility] ([facility]) [address] [place] [address] Anion gap [Moles/Vol] 14 mmol/L Normal 10-20 [facility] Comment on above: Performed By: #### 2 4323-8 #### MIN Zamora ([id number]) [facility] ([facility]) [address] [place] [address] AST With P-5'-P [Catalytic activity/Vol] 25 U/L Normal 9-39 [facility] Comment on above: Result Comment: MILD HEMOLYSIS DETECTED. The result may be falsely elevated due to hemolysis or other interferents. Clinical correlation is recommended. Repeat testing may be considered. Performed By: #### 2 4323-8 #### MIN Zamora ([id number]) [facility] ([facility]) [address] [place] [address] Bilirubin [Mass/Vol] 0.3 mg/dL Normal 0.0-1.2 [facility] Comment on above: Performed By: #### 2 4323-8 #### MIN BROWNLEE L ([id number]) [facility] ([facility]) [address] [place] [address] Calcium [Mass/Vol] 9.1 mg/dL Normal 8.6-10.6 [facility] Comment on above: Performed By: #### 2 4323-8 #### MIN GRANADOSER L ([id number]) [facility] ([facility]) [address] [place] [address] Chloride [Moles/Vol] 105 mmol/L Normal 98-107 [facility] Comment on above: Performed By: #### 2 4323-8 #### MIN BROWNLEE L ([id number]) [facility] ([facility]) [address] [place] [address] CO2 [Moles/Vol] 23 mmol/L Normal 21-32 [facility] Comment on above: Performed By: #### 2 4323-8 #### MIN BROWNLEE L ([id number]) [facility] ([facility]) [address] [place] [address] Creatinine [Mass/Vol] 0.40 mg/dL Low 0.50-1.05 [facility] Comment on above: Performed By: #### 2 4323-8 #### MIN JIMÉNEZMOTZER L (48069) [facility] ([facility]) [address] [place] [address] GFR/1.73 sq M.predicted MDRD (S/P/Bld) [Vol rate/Area] mL/min/{1.73_m2} Normal >60 [facility] Comment on above: Result Comment: Calc ulations of estimated GFR are performed using the 2020 CKD-EPI Study Refit equation without the race variable for the IDMS-Traceable creatinine methods. https://jasn.asnjournals.org/content/early//ASN.341505 4137 Performed By: #### 2 4323-8 #### MIN Zmaora ([id number]) [facility] ([facility]) [address] [place] [address] Glucose [Mass/Vol] 86 mg/dL Normal 74-99 [facility] Comment on above: Performed By: #### 2 4323-8 #### MIN Zamora ([id number]) [facility] ([facility]) [id number] [place] [address] Potassium [Moles/Vol] 4.2 mmol/L Normal 3.5-5.3 [facility] Comment on above: Result Comment: MILD HEMOLYSIS DETECTED. The result may be falsely elevated due to hemolysis or other interferents. Clinical correlation is recommended. Repeat testing may be considered. Performed By: #### 2 4323-8 #### MIN Zamora ([id number]) [facility] ([facility]) [id number] [place] [address]39 Protein [Mass/Vol] 6.9 g/dL Normal 6.4-8.2 [facility] Comment on above: Performed By: #### 2 4323-8 #### MIN Zamora ([id number]) [facility] ([facility]) [id number] [place] [address] 15566 Sodium [Moles/Vol] 138 mmol/L Normal 136-145 [facility] Comment on above: Performed By: #### 2 4323-8 #### MIN BROWNLEE L ([id number]) [facility] ([facility]) [address] [place] [address] Urea nitrogen [Mass/Vol] 7 mg/dL Normal 6-23 [facility] Comment on above: Performed By: #### 2 4323-8 #### MIN BROWNLEE L ([id number]) [facility] ([facility]) [address] [place] [address] ECG 12-LEADon 04-18-2024 ECG 12-LEAD Ventricular Rate 94 Atrial Rate 94 P-R Interval 138 QRS Duration 90 Q-T Interval 392 QTC Calculation(Bazett) 490 P Brooklyn 49 R [place] 10 T [place] 15 QRS Count 16 Q Onset 218 P Onset 149 P Offset 194 T Offset 414 QTC Fredericia 455 Diagnosis Normal sinus rhythm Prolonged QT Abnormal ECG No previous ECGs available Confirmed by Antonino Chavez ([id number]) on 04/21/2024 8:55:56 AM Normal [facility] Free T4 Indexon 04-18-2024 Free T4 index Calc [Mass/Vol] 2.8 1.6 - 4.7 [facility] Free T4 index Calc [Mass/Vol ]on 04-18-2024 T3RU 16 % Low 24 - 41 % [facility] T4 [Mass/Vol] 17.2 ug/dL High 4.5 - 11.1 ug/dL [facility] T3RU 16 % Low 24-41 [facility] Comment on above: Performed By: #### 8 9577-1 #### MIN Zamora ([id number]) [facility] ([facility]) [address] [place] [address] T4 [Mass/Vol] 17.2 ug/dL High 4.5-11.1 [facility] Comment on above: Performed By: #### 8 9577-1 #### MIN Zamora ([id number]) [facility] ([facility]) [address] [place] [address] Glucose Test strip manual (B ld) [Mass/Vol]on 04-18-2024 Glucose [Mass/Vol] 89 mg/dL 74 - 99 mg/dL [facility] Interpretation and review of laboratory results Normal [facility] Glucose [Mass/Vol] 89 mg/dL Normal 74-99 [facility] Comment on above: Performed By: #### 8 9577-1 #### MIN Zamora ([id number]) [facility] ([facility]) [address] [place] [address]12 Glucose [Mass/Vol] 78 mg/dL 74 - 99 mg/dL [facility] Interpretation and review of laboratory results Normal [facility] Glucose [Mass/Vol] 78 mg/dL Normal 74-99 [facility] Comment on above: Performed By: #### 8 9577-1 #### MIN Zamora ([id number]) [facility] ([facility]) [address] [place] [address] Glucose [Mass/Vol] 94 mg/dL 74 - 99 mg/dL [facility] Interpretation and review of laboratory results Normal [facility] Glucose [Mass/Vol] 94 mg/dL Normal 74-99 [facility] Comment on above: Performed By: #### 8 9577-1 #### MIN Zamora ([id number]) [facility] ([facility]) [address] [place] [address] Glucose [Mass/Vol] 78 mg/dL 74 - 99 mg/dL [facility] Interpretation and review of laboratory results Normal [facility] Glucose [Mass/Vol] 78 mg/dL Normal 74-99 [facility] Comment on above: Performed By: #### 2 341-6 #### MIN Zamora ([id number]) [facility] ([facility]) [address] [place] [address] Glucose post fast [Mass/Vol] on 04-18-2024 Interpretation and review of laboratory results Normal [facility] INCREASED RISK FOR DIABETES 100-125 mg/dL DIAGNOSTIC OF DIABETES >=126 mg/dL Diagnosis of diabetes mellitus requires confirmation of an abnormal result by repeat testing. [employer], Diabetes Care; 47(Suppl.1):S20-S42) [facility] Glucose^post CFston 04-18-20 24 Glucose post fast [Mass/Vol] 76 mg/dL Normal 74-99 [facility] Comment on above: Order Comment: INCRE ASED RISK FOR DIABETES 100-125 mg/dL DIAGNOSTIC OF DIABETES >=126 mg/dL Diagnosis of diabetes mellitus requires confirmation of an abnormal result by repeat testing. [employer], Diabetes Care; 47(Suppl.1):S20-S42) Performed By: #### 1 558-6 ###Rasta Zamora ([id number]) [facility] ([facility]) [id number] [place] [address]78 Magnesiumon 04-18-2024 Magnesium [Mass/Vol] 1.63 mg/dL 1.60 - 2.40 mg/dL [facility] Magnesium [Mass/Vol] 1.63 mg/dL Normal 1.60-2.40 [facility] Comment on above: Performed By: #### 8 9577-1 #### MIN Zamora ([id number]) [facility] ([facility]) [address] [place] [address] Magnesium [Mass/Vol]on 04-18 Interpretation and review of laboratory results Normal [facility] No Panel Informationon 04-18 Interpretation and review of laboratory results Abnormal [facility] Phosphateon 04-18-2024 Phosphate [Mass/Vol] 4.4 mg/dL Normal 2.5-4.9 [facility] Comment on above: Result Comment: The performance characteristics of phosphorus testing in heparinized plasma have been validated by the individual laboratory site where testing is performed. Testing on heparinized plasma is not approved by the FDA; however, such approval is not necessary. Performed By: #### 8 9577-1 #### MIN Zamora ([id number]) [facility] ([facility]) [address] [place] [address]370 Phosphate [Mass/Vol]on 04-18 Interpretation and review of laboratory results Normal [facility] Phosphoruson 04-18-2024 Phosphate [Mass/Vol] 4.4 mg/dL 2.5 - 4 .9 mg/dL [facility] Comment on above: The performance dex acteristics of phosphorus testing in heparinized plasma have been validated by the individual laboratory site where testing is performed. Testing on heparinized plasma is not approved by the FDA; however, such approval is not necessary. Proteinon 04-18-2024 Protein Qn (U) 6 mg/dL Normal 5-24 [facility] Comment on above: Performed By: #### 8 9577-1 #### MIN Zamora ([id number]) [facility] ([facility]) [address] [place] [address] 91610 Protein Qn (U)on 04-18-2024 Creatinine (U) [Mass/Vol] 39.8 mg/dL 20.0 - 320.0 mg/dL [facility] Interpretation and review of laboratory results Normal [facility] Protein/Creatinine (U) [Mass ratio] 0.15 mg/g [facility] Creatinine (U) [Mass/Vol] 39.8 mg/dL Normal 20.0-320.0 [facility] Comment on above: Performed By: #### 8 9577-1 #### MIN Zamora ([id number]) [facility] ([facility]) [address] [place] [address]166 Protein/Creatinine (U) [Mass ratio] 0.15 mg/mg Creat Normal 0.00-0.17 [facility] Comment on above: Performed By: #### 8 9577-1 #### MIN Zamora ([id number]) [facility] ([facility]) [address] [place] [address] Protein, urine, randomon Protein Qn (U) 6 mg/dL 5 - 24 mg/dL 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 Study Detail: The following Echo studies were performed: 2D, M-Mode, Doppler and color flow. Technically challenging study due to prominent lung artifact and body habitus. PHYSICIAN INTERPRETATION: Left Ventricle: Left ventricular ejection fraction is normal, by visual estimate at 65-70%. There are no regional left ventricular wall motion abnormalities. The left ventricular cavity size is normal. Spectral Doppler shows a normal pattern of left ventricular diastolic filling. Left Atrium: The left atrium is normal in size. Right Ventricle: The right ventricle is normal in size. There is normal right ventricular global systolic function. Right Atrium: The right atrium is normal in size. Aortic Valve: The aortic valve is trileaflet. There is no evidence of aortic valve regurgitation. The peak instantaneous gradient of the aortic valve is 13.8 mmHg. Mitral Valve: The mitral valve is normal in structure. There is trace mitral valve regurgitation. Tricuspid Valve: The tricuspid valve is structurally normal. There is trace tricuspid regurgitation. Pulmonic Valve: The pulmonic valve is structurally normal. There is no indication of pulmonic valve regurgitation. Pericardium: There is no pericardial effusion noted. Aorta: The aortic root is normal. Systemic Veins: The inferior vena cava appears dilated, with IVC inspiratory collapse greater than 50%. In comparison to the previous echocardiogram(s): There are no prior studies on this patient for comparison purposes. CONCLUSIONS: 1. Left ventricular ejection fraction is normal, by visual estimate at 65-70%. 2. There is normal right ventricular global systolic function. QUANTITATIVE DATA SUMMARY: 2D MEASUREMENTS: Normal Ranges: Ao Root d: 3.00 cm (2.0-3.7cm) LAs: 4.20 cm (2.7-4.0cm) IVSd: 0.90 cm (0.6-1.1cm) LVPWd: 0.80 cm (0.6-1.1cm) LVIDd: 4.50 cm (3.9-5.9cm) LVIDs: 2.90 cm LV Mass Index: 60 g/m2 LVEDV Index: 47 ml/m2 LV % FS 35.6 % LA VOLUME: Normal Ranges: LA Vol A4C: 31.0 ml (22+/-6mL/m2) LA Vol A2C: 33.8 ml LA Vol BP: 32.6 ml LA Vol Index A4C: 15.2ml/m2 LA Vol Index A2C: 16.6 ml/m2 LA Vol Index BP: 16.0 ml/m2 LA Area A4C: 13.2 cm2 LA Area A2C: 13.9 cm2 LA Major Brooklyn A4C: 4.8 cm LA Major Brooklyn A2C: 4.9 cm RA VOLUME BY A/L METHOD: Normal Ranges: RA Area A4C: 10.9 cm2 M-MODE MEASUREMENTS: Normal Ranges: AoV Exc: 2.10 cm (1.5-2.5cm) AORTA MEASUREMENTS: Normal Ranges: AoV Exc: 2.10 cm (1.5-2.5cm) Asc Ao, d: 2.60 cm (2.1-3.4cm) Ao Arch: 2.40 cm (2.0-3.6cm) LV SYSTOLIC FUNCTION BY 2D PLANIMETRY (MOD): Normal Ranges: EF-A4C View: 58 % (>=55%) EF-A2C View: 65 % EF-Biplane: 62 % EF-Visual: 68 % LV EF Reported: 68 % LV DIASTOLIC FUNCTION: Normal Ranges: MV Peak E: 1.15 m/s (0.7-1.2 m/s) MV Peak A: 0.95 m/s (0.42-0.7 m/s) E/A Ratio: 1.21 (1.0-2.2) MV e' 0.098 m/s (>8.0) MV lateral e' 0.11 m/s MV medial e' 0.08 m/s MV A Dur: 111.00 msec E/e' Ratio: 11.68 (<8.0) a' 0.12 m/s MV DT: 195 msec (150-240 msec) MITRAL VALVE: Normal Ranges: MV DT: 195 msec (150-240msec) AORTIC VALVE: Normal Ranges: AoV Vmax: 1.86 m/s (<=1.7m/s) AoV Peak P.8 mmHg (<20mmHg) LVOT Max Erica: 1.31 m/s (<=1.1m/s) LVOT VTI: 22.40 cm LVOT Diameter: 2.20 cm (1.8-2.4cm) AoV Area,Vmax: 2.68 cm2 (2.5-4.5cm2) RIGHT VENTRICLE: RV Basal 2.90 cm RV Mid 2.60 cm RV Major 5.6 cm TAPSE: 24.0 mm RV s' 0.23 m/s TRICUSPID VALVE/RVSP: Normal Ranges: Est. RA Pressure: 8 mmHg IVC Diam: 2.20 cm PULMONIC VALVE: Normal Ranges: PV Accel Time: 129 msec (>120ms) PV Max Erica: 1.2 m/s (0.6-0.9m/s) PV Max P.7 mmHg [id number] Miguel Gamino MD Electronically signed on 04/18/2024 at 10:31:49 PM Final Normal [facility] TSHon 04-18-2024 TSH Qn 0.29 m[IU]/L Low [facility] TSH Qn 0.30 m[IU]/L Low [facility] TSH Qnon 04-18-2024 Interpretation and review of laboratory results Abnormal [facility] TSH testing is perfo rmed using different testing methodology at [facility] than at other [facility]. Direct result comparisons should only be made within the same method. [facility] Interpretation and review of laboratory results Abnormal [facility] TSH testing is perfo rmed using different testing methodology at [facility] than at other [facility]. Direct result comparisons should only be made within the same method. [facility] Thyrotropinon 04-18-2024 TSH Qn 0.29 m[IU]/L Low 0.44-3.98 [facility] Comment on above: Order Comment: TSH t esting is performed using different testing methodology at [facility] than at other [facility]. Direct result comparisons should only be made within the same method. Performed By: #### 3 016-3 #### MIN Zamora ([id number]) [facility] ([facility]) [address] [place] [address] TSH Qn 0.30 m[IU]/L Low 0.44-3.98 [facility] Comment on above: Order Comment: TSH t esting is performed using different testing methodology at [facility] than at [facility]. Direct result comparisons should only be made within the same method. Performed By: #### 3 016-3 #### MIN Zamora ([id number]) [facility] ([facility]) [address] [place] [address] Thyroxine free indexon 04-18 Free T4 index Calc [Mass/Vol] 2.8 Normal 1.6-4.7 [facility] Comment on above: Performed By: #### 8 9577-1 #### MIN Zamora ([id number]) [facility] ([facility]) [address] [place] [address]48 Triiodothyronineon T3 [Mass/Vol] 220 ng/dL High 60-200 [facility] Comment on above: Performed By: #### 8 9577-1 #### MIN Zamora ([id number]) [facility] ([facility]) [address] [place] [address] 36667 Triiodothyronine, Totalon T3 [Mass/Vol] 220 ng/dL High 60 - 200 ng/dL [facility] Tropinin I.cardiac panel Hig h sensitivity methodon 04-18-2024 Interpretation and review of laboratory results Abnormal [facility] Less than 99th perce ntile of normal range cutoff- Female and children under 18 years old <35 ng/L; Male <54 ng/L: Negative Repeat testing should be performed if clinically indicated. Female and children under 18 years old 35-120 ng/L; Male 54-120 ng/L: Consistent with possible cardiac damage and possible increased clinical risk. Serial measurements may help to assess extent of myocardial damage. >120 ng/L: Consistent with cardiac damage, increased clinical risk and myocardial infarction. Serial measurements may help assess extent of myocardial damage. NOTE: Children less than 1 year old may have higher baseline troponin levels and results should be interpreted in conjunction with the overall clinical context. NOTE: Troponin I testing is performed using a different testing methodology at [facility] than at other [facility]. Direct result comparisons should only be made within the same method. [facility] Interpretation and review of laboratory results Abnormal [facility] Less than 99th perce ntile of normal range cutoff- Female and children under 18 years old <35 ng/L; Male <54 ng/L: Negative Repeat testing should be performed if clinically indicated. Female and children under 18 years old 35-120 ng/L; Male 54-120 ng/L: Consistent with possible cardiac damage and possible increased clinical risk. Serial measurements may help to assess extent of myocardial damage. >120 ng/L: Consistent with cardiac damage, increased clinical risk and myocardial infarction. Serial measurements may help assess extent of myocardial damage. NOTE: Children less than 1 year old may have higher baseline troponin levels and results should be interpreted in conjunction with the overall clinical context. NOTE: Troponin I testing is performed using a different testing methodology at [facility] than at other [facility]. Direct result comparisons should only be made within the same method. [facility] Interpretation and review of laboratory results Abnormal [facility] Less than 99th perce ntile of normal range cutoff- Female and children under 18 years old <35 ng/L; Male <54 ng/L: Negative Repeat testing should be performed if clinically indicated. Female and children under 18 years old 35-120 ng/L; Male 54-120 ng/L: Consistent with possible cardiac damage and possible increased clinical risk. Serial measurements may help to assess extent of myocardial damage. >120 ng/L: Consistent with cardiac damage, increased clinical risk and myocardial infarction. Serial measurements may help assess extent of myocardial damage. NOTE: Children less than 1 year old may have higher baseline troponin levels and results should be interpreted in conjunction with the overall clinical context. NOTE: Troponin I testing is performed using a different testing methodology at [facility] than at other [facility]. Direct result comparisons should only be made within the same method. [facility] Troponin I, High Sensitivity on 04-18-2024 Tropinin I.cardiac panel High sensitivity method 40 ng/L High 0 - 34 ng/L [facility] Tropinin I.cardiac panel High sensitivity method 58 ng/L High 0 - 34 ng/L [facility] Troponin I.cardiac panelon 0 04-18-2024 Tropinin I.cardiac panel High sensitivity method 40 ng/L High 0-34 [facility] Comment on above: Order Comment: Less than 99th percentile of normal range cutoff- Female and children under 18 years old <35 ng/L; Male <54 ng/L: Negative Repeat testing should be performed if clinically indicated. Female and children under 18 years old 35-120 ng/L; Male 54-120 ng/L: Consistent with possible cardiac damage and possible increased clinical risk. Serial measurements may help to assess extent of myocardial damage. >120 ng/L: Consistent with cardiac damage, increased clinical risk and myocardial infarction. Serial measurements may help assess extent of myocardial damage. NOTE: Children less than 1 year old may have higher baseline troponin levels and results should be interpreted in conjunction with the overall clinical context. NOTE: Troponin I testing is performed using a different testing methodology at [facility] than at [facility]. Direct result comparisons should only be made within the same method. Performed By: #### 8 9577-1 #### MIN Zamora ([id number]) [facility] ([facility]) [address] [place], [place] [id number] Tropinin I.cardiac panel High sensitivity method 42 ng/L High 0-34 [facility] Comment on above: Order Comment: Less than 99th percentile of normal range cutoff- Female and children under 18 years old <35 ng/L; Male <54 ng/L: Negative Repeat testing should be performed if clinically indicated. Female and children under 18 years old 35-120 ng/L; Male 54-120 ng/L: Consistent with possible cardiac damage and possible increased clinical risk. Serial measurements may help to assess extent of myocardial damage. >120 ng/L: Consistent with cardiac damage, increased clinical risk and myocardial infarction. Serial measurements may help assess extent of myocardial damage. NOTE: Children less than 1 year old may have higher baseline troponin levels and results should be interpreted in conjunction with the overall clinical context. NOTE: Troponin I testing is performed using a different testing methodology at [facility] than at other [facility]. Direct result comparisons should only be made within the same method. Performed By: #### 8 9577-1 #### MIN Zamora ([id number]) [facility] ([facility]) [address] [place], [place] [id number] Tropinin I.cardiac panel High sensitivity method 58 ng/L High 0-34 [facility] Comment on above: Order Comment: Less than 99th percentile of normal range cutoff- Female and children under 18 years old <35 ng/L; Male <54 ng/L: Negative Repeat testing should be performed if clinically indicated. Female and children under 18 years old 35-120 ng/L; Male 54-120 ng/L: Consistent with possible cardiac damage and possible increased clinical risk. Serial measurements may help to assess extent of myocardial damage. >120 ng/L: Consistent with cardiac damage, increased clinical risk and myocardial infarction. Serial measurements may help assess extent of myocardial damage. NOTE: Children less than 1 year old may have higher baseline troponin levels and results should be interpreted in conjunction with the overall clinical context. NOTE: Troponin I testing is performed using a different testing methodology at [facility] than at other [facility]. Direct result comparisons should only be made within the same method. Performed By: #### 8 9577-1 #### MIN Zamora ([id number]) [facility] ([facility]) [address] [place] [address] Heart TransthoracicOrdere d By: Miguel Gamino on 04-18-2024 Aortic Valve Area by Continuity of Peak Velocity 2.68 cm2 [facility] Work Phone: AV pk grad 13.8 mmHg [facility] Work Phone: AV pk erica 1.86 m/s [facility] Work Phone: LA vol index A/L 16.0 ml/m2 [facility] Work [facility]: LV A4C EF 57.6 [facility] Work Phone: LV EF 68 % [facility] Work Phone: LVIDd 4.50 cm [facility] Work Phone: LVOT diam 2.20 cm [facility] Work Phone: MV E/A ratio 1.21 [facility] Work Phone: RV free wall pk S' 22.70 cm/s [facility] Work Phone: Tricuspid annular plane systolic excursion 2.4 cm [facility] Work Phone: [facility] Work Phone: US Heart Transthoracicon [facility], [address] [place] [address] and TRANSTHORACIC ECHOCARDIOGRAM REPORT Patient Name: ILDA VIERA Reading Physician: [id number] Miguel Gamino MD Study Date: 04/18/2024 Ordering Provider: [id number] COLIN METZ MRN/PID: [id number] Fellow: Nurse: Date of /Age: 9 1985 / 39 years [employer]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 Study Detail: The following Echo studies were performed: 2D, M-Mode, Doppler and color flow. Technically challenging study due to prominent lung artifact and body habitus. PHYSICIAN INTERPRETATION: Left Ventricle: Left ventricular ejection fraction is normal, by visual estimate at 65-70%. There are no regional left ventricular wall motion abnormalities. The left ventricular cavity size is normal. Spectral Doppler shows a normal pattern of left ventricular diastolic filling. Left Atrium: The left atrium is normal in size. Right Ventricle: The right ventricle is normal in size. There is normal right ventricular global systolic function. Right Atrium: The right atrium is normal in size. Aortic Valve: The aortic valve is trileaflet. There is no evidence of aortic valve regurgitation. The peak instantaneous gradient of the aortic valve is 13.8 mmHg. Mitral Valve: The mitral valve is normal in structure. There is trace mitral valve regurgitation. Tricuspid Valve: The tricuspid valve is structurally normal. There is trace tricuspid regurgitation. Pulmonic Valve: The pulmonic valve is structurally normal. There is no indication of pulmonic valve regurgitation. Pericardium: There is no pericardial effusion noted. Aorta: The aortic root is normal. Systemic Veins: The inferior vena cava appears dilated, with IVC inspiratory collapse greater than 50%. In comparison to the previous echocardiogram(s): There are no prior studies on this patient for comparison purposes. CONCLUSIONS: 1. Left ventricular ejection fraction is normal, by visual estimate at 65-70%. 2. There is normal right ventricular global systolic function. QUANTITATIVE DATA SUMMARY: 2D MEASUREMENTS: Normal Ranges: Ao Root d: 3.00 cm (2.0-3.7cm) LAs: 4.20 cm (2.7-4.0cm) IVSd: 0.90 cm (0.6-1.1cm) LVPWd: 0.80 cm (0.6-1.1cm) LVIDd: 4.50 cm (3.9-5.9cm) LVIDs: 2.90 cm LV Mass Index: 60 g/m2 LVEDV Index: 47 ml/m2 LV % FS 35.6 % LA VOLUME: Normal Ranges: LA Vol A4C: 31.0 ml (22+/-6mL/m2) LA Vol A2C: 33.8 ml LA Vol BP: 32.6 ml LA Vol Index A4C: 15.2ml/m2 LA Vol Index A2C: 16.6 ml/m2 LA Vol Index BP: 16.0 ml/m2 LA Area A4C: 13.2 cm2 LA Area A2C: 13.9 cm2 LA Major [place] A4C: 4.8 cm LA Major [place] A2C: 4.9 cm RA VOLUME BY A/L METHOD: Normal Ranges: RA Area A4C: 10.9 cm2 M-MODE MEASUREMENTS: Normal Ranges: AoV Exc: 2.10 cm (1.5-2.5cm) AORTA MEASUREMENTS: Normal Ranges: AoV Exc: 2.10 cm (1.5-2.5cm) Asc Ao, d: 2.60 cm (2.1-3.4cm) Ao Arch: 2.40 cm (2.0-3.6cm) LV SYSTOLIC FUNCTION BY 2D PLANIMETRY (MOD): Normal Ranges: EF-A4C View: 58 % (>=55%) EF-A2C View: 65 % EF-Biplane: 62 % EF-Visual: 68 % LV EF Reported: 68 % LV DIASTOLIC FUNCTION: Normal Ranges: MV Peak E: 1.15 m/s (0.7-1.2 m/s) MV Peak A: 0.95 m/s (0.42-0.7 m/s) E/A Ratio: 1.21 (1.0-2.2) MV e' 0.098 m/s (>8.0) MV lateral e' 0.11 m/s MV medial e' 0.08 m/s MV A Dur: 111.00 msec E/e' Ratio: 11.68 (<8.0) a' 0.12 m/s MV DT: 195 msec (150-240 msec) MITRAL VALVE: Normal Ranges: MV DT: (more content not included)... 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 Study Detail: The following Echo studies were performed: 2D, M-Mode, Doppler and color flow. Technically challenging study due to prominent lung artifact and body habitus. PHYSICIAN INTERPRETATION: Left Ventricle: Left ventricular ejection fraction is normal, by visual estimate at 65-70%. There are no regional left ventricular wall motion abnormalities. The left ventricular cavity size is normal. Spectral Doppler shows a normal pattern of left ventricular diastolic filling. Left Atrium: The left atrium is normal in size. Right Ventricle: The right ventricle is normal in size. There is normal right ventricular global systolic function. Right Atrium: The right atrium is normal in size. Aortic Valve: The aortic valve is trileaflet. There is no evidence of aortic valve regurgitation. The peak instantaneous gradient of the aortic valve is 13.8 mmHg. Mitral Valve: The mitral valve is normal in structure. There is trace mitral valve regurgitation. Tricuspid Valve: The tricuspid valve is structurally normal. There is trace tricuspid regurgitation. Pulmonic Valve: The pulmonic valve is structurally normal. There is no indication of pulmonic valve regurgitation. Pericardium: There is no pericardial effusion noted. Aorta: The aortic root is normal. Systemic Veins: The inferior vena cava appears dilated, with IVC inspiratory collapse greater than 50%. In comparison to the previous echocardiogram(s): There are no prior studies on this patient for comparison purposes. CONCLUSIONS: 1. Left ventricular ejection fraction is normal, by visual estimate at 65-70%. 2. There is normal right ventricular global systolic function. QUANTITATIVE DATA SUMMARY: 2D MEASUREMENTS: Normal Ranges: Ao Root d: 3.00 cm (2.0-3.7cm) LAs: 4.20 cm (2.7-4.0cm) IVSd: 0.90 cm (0.6-1.1cm) LVPWd: 0.80 cm (0.6-1.1cm) LVIDd: 4.50 cm (3.9-5.9cm) LVIDs: 2.90 cm LV Mass Index: 60 g/m2 LVEDV Index: 47 ml/m2 LV % FS 35.6 % LA VOLUME: Normal Ranges: LA Vol A4C: 31.0 ml (22+/-6mL/m2) LA Vol A2C: 33.8 ml LA Vol BP: 32.6 ml LA Vol Index A4C: 15.2ml/m2 LA Vol Index A2C: 16.6 ml/m2 LA Vol Index BP: 16.0 ml/m2 LA Area A4C: 13.2 cm2 LA Area A2C: 13.9 cm2 LA Major [place] A4C: 4.8 cm LA Major [place] A2C: 4.9 cm RA VOLUME BY A/L METHOD: Normal Ranges: RA Area A4C: 10.9 cm2 M-MODE MEASUREMENTS: Normal Ranges: AoV Exc: 2.10 cm (1.5-2.5cm) AORTA MEASUREMENTS: Normal Ranges: AoV Exc: 2.10 cm (1.5-2.5cm) Asc Ao, d: 2.60 cm (2.1-3.4cm) Ao Arch: 2.40 cm (2.0-3.6cm) LV SYSTOLIC FUNCTION BY 2D PLANIMETRY (MOD): Normal Ranges: EF-A4C View: 58 % (>=55%) EF-A2C View: 65 % EF-Biplane: 62 % EF-Visual: 68 % LV EF Reported: 68 % LV DIASTOLIC FUNCTION: Normal Ranges: MV Peak E: 1.15 m/s (0.7-1.2 m/s) MV Peak A: 0.95 m/s (0.42-0.7 m/s) E/A Ratio: 1.21 (1.0-2.2) MV e' 0.098 m/s (>8.0) MV lateral e' 0.11 m/s MV medial e' 0.08 m/s MV A Dur: 111.00 msec E/e' Ratio: 11.68 (<8.0) a' 0.12 m/s MV DT: 195 msec (150-240 msec) MITRAL VALVE: Normal Ranges: MV DT: 195 msec (150-240msec) AORTIC VALVE: Normal Ranges: AoV Vmax: 1.86 m/s (<=1.7m/s) AoV Peak P.8 mmHg (<20mmHg) LVOT Max Erica: 1.31 m/s (<=1.1m/s) LVOT VTI: 22.40 cm LVOT Diameter: 2.20 cm (1.8-2.4cm) AoV Area,Vmax: 2.68 cm2 (2.5-4.5cm2) RIGHT VENTRICLE: RV Basal 2.90 cm RV Mid 2.60 cm RV Major 5.6 cm TAPSE: 24.0 mm RV s' 0.23 m/s TRICUSPID VALVE/RVSP: Normal Ranges: Est. RA Pressure: 8 mmHg IVC Diam: 2.20 cm PULMONIC VALVE: Normal Ranges: PV Accel Time: 129 msec (>120ms) PV Max Erica: 1.2 m/s (0.6-0.9m/s) PV Max P.7 mmHg [id number] Miguel Gamino MD Electronically signed on 04/18/2024 at 10:31:49 PM Final [facility] Work Phone: BMPon 04-17-2024 Anion gap [Moles/Vol] 12 mmol/L Normal 6-16 [facility] Comment on above: Performed By: #### 2 [id number] #### [facility] [address] [place] [address] Calcium [Mass/Vol] 8.5 mg/dL Low 8.9-11.1 [facility] Comment on above: Performed By: #### 2 [id number] #### [facility] [address] [place] [address] Chloride [Moles/Vol] 105 mmol/L Normal 101-111 [facility] Comment on above: Performed By: #### 2 [id number] #### [facility] [address] [place] [address] CO2 [Moles/Vol] 22 mmol/L Normal 21-31 [facility] Comment on above: Performed By: #### 2 [id number] #### [facility] [address] [place] [address] Creatinine [Mass/Vol] 0.4 mg/dL Low 0.5-1.3 [facility] Comment on above: Performed By: #### 2 [id number] #### [facility] [address] [place] [address] Glucose [Mass/Vol] 97 mg/dL Normal 55-199 [facility] Comment on above: Performed By: #### 2 [id number] #### [facility] [address] [place] [address] Potassium [Moles/Vol] 3.4 mmol/L Low 3.5-5.3 [facility] Comment on above: Performed By: #### 2 [id number] #### [facility] [address] [place] [address] Sodium [Moles/Vol] 136 mmol/L Normal 135-145 [facility] Comment on above: Performed By: #### 2 [id number] #### [facility] [address] [place] [address] Urea nitrogen [Mass/Vol] 6 mg/dL Normal 5-21 [facility] Comment on above: Performed By: #### 2 [id number] #### [facility] [address] [place] [address] Urea nitrogen/Creatinine [Mass ratio] 15 No Units Normal 10-20 [facility] Comment on above: Performed By: #### 2 [id number] #### [facility] [address] [place] [address] CBC w/ Auto Diffon 4 Basophils/100 WBC (Bld) 0.4 % Normal 0.0-2.0 [facility] Comment on above: Performed By: #### 2 [id number] #### [facility] [address] [place] [address] Basophils/Leukocytes Auto (Bld) [Pure # fraction] 0.0 E9/L Normal 0.0-0.2 [facility] Comment on above: Performed By: #### 2 [id number] #### [facility] [address] [place] [address] Eosinophils (Bld) [#/Vol] 0.2 E9/L Normal 0.0-0.5 [facility] Comment on above: Performed By: #### 2 [id number] #### [facility] [address] [place] [address] Eosinophils/100 WBC (Bld) 2.8 % Normal 0.0-8.0 [facility] Comment on above: Performed By: #### 2 [id number] #### [facility] [address] [place] [address] Erythrocyte distribution width (RBC) [Ratio] 14.9 % High 10.9-14.2 [facility] Comment on above: Performed By: #### 2 [id number] #### [facility] [address] [place] [address] Hematocrit (Bld) [Volume fraction] 32.3 % Low 34.0-46.0 [facility] Comment on above: Performed By: #### 2 [id number] #### [facility] [address] [place] [address] Hemoglobin (Bld) [Mass/Vol] 11.1 g/dL Low 12.0-16.0 [facility] Comment on above: Performed By: #### 2 [id number] #### [facility] [address] [place] [address] Lymphocytes (Bld) [#/Vol] 2.5 E9/L Normal 1.0-4.0 [facility] Comment on above: Performed By: #### 2 [id number] #### [facility] [address] [place] [address] Lymphocytes/100 WBC (Bld) 30.1 % Normal 14.0-50.0 [facility] Comment on above: Performed By: #### 2 [id number] #### [facility] [address] [place] [address] MCH (RBC) [Entitic mass] 29.8 pg Normal 27.0-34.0 [facility] Comment on above: Performed By: #### 2 [id number] #### [facility] [address] [place] [address] MCHC (RBC) [Mass/Vol] 34.3 g/dL Normal 31.4-36.0 [facility] Comment on above: Performed By: #### 2 [id number] #### [facility] [address] [place] [address] MCV (RBC) [Entitic vol] 86.9 fL Normal 80.0-100.0 [facility] Comment on above: Performed By: #### 2 [id number] #### [facility] [address] [place] [address] Monocytes (Bld) [#/Vol] 0.7 E9/L Normal 0.2-1.0 [facility] Comment on above: Performed By: #### 2 [id number] #### [facility] [address] [place] [address] Neutrophils (Bld) [#/Vol] 4.9 E9/L Normal 2.0-7.5 [facility] Comment on above: Performed By: #### 2 [id number] #### [facility] [address] [place] [address] Neutrophils/100 WBC (Bld) 58.0 % Normal 36.0-75.0 [facility] Comment on above: Performed By: #### 2 746009 #### [facility] [address] [place] [address] Platelet mean volume (Bld) [Entitic vol] 6.5 fL Normal 6.4-10.8 [facility] Comment on above: Performed By: #### 2 [id number] #### [facility] [address] [place] [address] Platelets (Bld) [#/Vol] 260.0 E9/L Normal 150.0-500.0 [facility] Comment on above: Performed By: #### 2 [id number] #### [facility] [address] [place] [address] RBC (Bld) [#/Vol] 3.7 E12/L Low 4.3-5.9 [facility] Comment on above: Performed By: #### 2 [id number] #### [facility] [address] [place] [address] WBC corrected for nucl RBC Auto (Bld) [#/Vol] 8.5 E9/L Normal 4.0-11.0 [facility] Comment on above: Performed By: #### 2 [id number] #### [facility] [address] [place] [address] CHEMISTRYOrdered By: SYSTEM SYSTEM on 04-17-2024 Troponin HS 93.20 pg/mL Invalid Interpretation Code 10.10 - 27.10 pg/mL Remisol Chem Comment on above: Result Comment: Crit ical Result Verified by Previous Result Critical Result I_TnIHS:93.2 Called to and read back by: DR. RIVAS/ER at: 04/17/2024 18:43:51 by:ALISTAIR ROTH Interpretive Data: T he 95% CI (Confidence Interval) PPV (Positive Predictive Value) for myocardial infarction in females is 38 pg/mL, in males 51 pg/mL. The results should be used in conjunction with clinical conditions of myocardial infarction. (Access High Sensitivity Troponin I Instructions For Use, [employer], February 2018) Troponin HS 144.60 pg/mL Invalid Interpretation Code 10.10 - 27.10 pg/mL Remisol Chem Comment on above: Result Comment: Crit ical Result Verified by Previous Result Critical Result I_TnIHS:144.6 Called to and read back by: NARESH SMITH at: 04/17/2024 12:58:06 by:AG Interpretive Data: T he 95% CI (Confidence Interval) PPV (Positive Predictive Value) for myocardial infarction in females is 38 pg/mL, in males 51 pg/mL. The results should be used in conjunction with clinical conditions of myocardial infarction. (Access High Sensitivity Troponin I Instructions For Use, [employer], February 2018) Troponin HS 138.90 pg/mL Invalid Interpretation Code 10.10 - 27.10 pg/mL Remisol Chem Comment on above: Interpretive Data: T he 95% CI (Confidence Interval) PPV (Positive Predictive Value) for myocardial infarction in females is 38 pg/mL, in males 51 pg/mL. The results should be used in conjunction with clinical conditions of myocardial infarction. ([employer] High Sensitivity Troponin I Instructions For Use, [employer], February 2018) Result Comment: Crit ical Result Verified by Previous Result Critical Result I_TnIHS:138.9 Called to and read back by: MOSES HANDLEY at: 04/17/2024 10:33:43 by:AG Anion gap [Moles/Vol] 12 mmol/L Normal 6 - 16 mEq/L R emisol Chem Calcium [Mass/Vol] 8.5 mg/dL Low 8.9 - 11. 1 mg/dL Remisol Chem Chloride [Moles/Vol] 105 mmol/L Normal 101 - 1 11 mmol/L Remisol Chem CO2 [Moles/Vol] 22 mmol/L Normal 21 - 31 mmol/L Remisol Chem Creatinine [Mass/Vol] 0.4 mg/dL Low 0.5 - 1.3 mg/dL Remisol Chem eGFR 130 mL/min/1.73 m2 Normal >=59mL/mi n/1 .73 m2 Remisol Chem Glucose [Mass/Vol] 97 mg/dL Normal 55 - 199 mg/dL Remisol Chem Magnesium [Mass/Vol] 1.6 mg/dL Normal 1.3 - 2 .4 mg/dL Remisol Chem Potassium [Moles/Vol] 3.4 mmol/L Low 3.5 - 5.3 mmol/L Remisol Chem Sodium [Moles/Vol] 136 mmol/L Normal 135 - 145 mmol/L Remisol Chem TSH Qn 0.34 m[IU]/L Normal 0.34 - 5.60 mcIU/mL Remisol Chem Urea nitrogen [Mass/Vol] 6 mg/dL Normal 5 - 21 mg/dL Remisol Chem Urea nitrogen/Creatinine [Mass ratio] 15 mg/mg Normal 10 - 20 Remisol Chem COAGULATIONOrdered By: Rodrigo Sutton on 04-17-2024 aPTT Coag (PPP) [Time] 29.8 s Normal 25.1 - 36.5 second(s) [facility] Auto Coag Comment on above: Interpretive Data: Bari romero 15 days - 4 weeks 1 - 5 months 6 - 11 months 1 - 5 years 6 - 10 years 11 - 17 years PTT Mean: 35.4 (27.6-45.6) Mean: 33.5 (24.8-40.7) Mean: 32.4 (25.1-40.7) Mean: 31.6 (24.0-39.2) Mean: 31.6 (26.9-38.7) Mean: 31.0 (24.6-38.4) Pediatric Reference ranges were obtained from a study by Teddy Coello et al. prepared from 1437 samples obtained at 7 different centers using the same coagulation reagent and instrumentation as [facility]. Currently there are no coagulation studies available worldwide for children to 14 days, and no normal ranges. Heparin therapeutic range (represented by Anti-Factor Xa activity of 0.2 - 0.4 U/mL) corresponds to PTT of 56.6 - 109.0 sec. INR Coag (PPP) [Relative time] 0.96 {INR} Invalid Interpretation Code [facility] Comment on above: Interpretive Data: I NR results are specifically intended to assess patients stabilized on long-term Anticoagulation therapy suggested INR s Less Intensive Anticoagulation 2.0 3.0 Conventional Range 3.0 4.5 PT Coag (PPP) [Time] 10.7 s Normal 9.4 - 1 2.5 second(s) [facility] Comment on above: Interpretive Data: 1 5 days - 4 weeks 1 - 5 months 6 -11 months 1-5 years 6-10 years 11 -17 years Mean: 11.2 (9.5-12.6) Mean: 11.0 (9.7-12.8) Mean: 11.0 (9.8-13.0) Mean: 11.3 (9.9-13.4) Mean: 11.7 (10.0-14.6) Mean: 11.8 (10.0 - 14.1) Pediatric Reference ranges were obtained from a study by Teddy Coello et al. prepared from 1437 samples obtained at 7 different centers using the same coagulation reagent and instrumentation as [facility]. Currently there are no coagulation studies available worldwide for children to 14 days, and no normal ranges. ED Clinical Summaryon 2023 ED Clinical Summary ED Clinical Summary [place] [id number] ED Clinical Summary Person Information Name: ILDA VIERA Chris/[facility] Age: 39 Years : 1985 Sex: Female Language: Icelandic PCP: Linda Lutz Marital Status: Phone: [phone] Visit Id: Visit Reason: Shortness of breath; Chest pain; RAPID HEART RATE - JOSSELYN RILEY INSTRUCTED HER TO COME TO GET CHECKED - OB SAID TO SEND HER TO ER Speciality: Acuity: 1 Enc Type: Emergency Med Service: Emergency Arrival: 04/17/2024 05:56:17 Discharge: 04/17/2024 21:46:38 LOS: 000 15:50 Checkin: 04/17/2024 05:56:17 Checkout: 04/17/2024 21:46:38 Dispo Type: Undefined HC Fac EVENTS: Event Name Event Status Request Date/Time Start Date/Time Complete Date/Time Arrive Complete 04/17/2024 05:56:17 04/17/2024 05:56:17 04/17/2024 05:56:17 Document Home Meds Request 04/17/2024 05:56:17 Triage Complete 04/17/2024 05:56:17 04/17/2024 06:06:36 04/17/2024 06:06:36 EKG Complete 04/17/2024 05:59:50 04/17/2024 06:05:15 Registration Complete 04/17/2024 06:00:33 04/17/2024 06:00:33 04/17/2024 06:00:33 Reg Complete Request 04/17/2024 06:00:33 Reg Bed Request Complete 04/17/2024 06:00:33 04/17/2024 06:00:33 04/17/2024 06:00:33 Dr Exam Complete 04/17/2024 06:01:21 04/17/2024 06:01:21 04/17/2024 06:01:21 Registration Start 04/17/2024 06:01:21 04/17/2024 06:10:22 Bed Assign Complete 04/17/2024 06:10:22 04/17/2024 06:10:22 04/17/2024 06:10:22 RN Exam Complete 04/17/2024 06:10:22 04/17/2024 06:29:04 04/17/2024 06:29:04 Pending Labs Complete 04/17/2024 06:12:55 04/17/2024 08:58:12 Lab Complete 04/17/2024 06:12:55 04/17/2024 06:39:36 Patient Care Request 04/17/2024 06:12:55 RT Request 04/17/2024 06:12:55 Pending Labs Complete 04/17/2024 06:16:10 04/17/2024 06:16:10 04/17/2024 06:39:36 Lab Complete 04/17/2024 06:16:10 04/17/2024 06:16:10 04/17/2024 06:39:36 Pending Labs Complete 04/17/2024 06:19:35 04/17/2024 06:19:35 04/17/2024 06:19:35 EKG Complete 04/17/2024 06:20:34 04/17/2024 06:23:15 Meds Admin Request 04/17/2024 06:24:19 Pending Labs Cancel 04/17/2024 06:24:19 04/17/2024 06:25:09 Pending Labs Complete 04/17/2024 06:25:46 04/17/2024 06:25:46 04/17/2024 06:59:22 Meds Admin Complete 04/17/2024 06:41:52 04/17/2024 06:55:55 Pending Labs Complete 04/17/2024 07:02:24 04/17/2024 07:13:42 Dr Exam Complete 04/17/2024 07:11:59 04/17/2024 07:11:59 04/17/2024 07:11:59 Pending Labs Complete 04/17/2024 09:03:56 04/17/2024 10:33:47 Lab Complete 04/17/2024 09:03:56 04/17/2024 10:33:47 EKG Complete 04/17/2024 09:05:20 04/17/2024 09:22:46 Meds Admin Complete 04/17/2024 10:15:58 04/17/2024 10:21:12 Pending Labs Complete 04/17/2024 11:49:40 04/17/2024 12:58:10 Lab Complete 04/17/2024 11:49:40 04/17/2024 12:58:10 Patient Care Request 04/17/2024 14:10:44 Transfer Complete 04/17/2024 14:10:44 04/17/2024 21:49:58 04/17/2024 21:49:58 Pending Labs Complete 04/17/2024 17:54:21 04/17/2024 18:43:55 Lab Complete 04/17/2024 17:54:21 04/17/2024 18:43:55 Meds Admin Complete 04/17/2024 17:54:21 04/17/2024 18:07:10 EKG Complete 04/17/2024 18:18:33 04/17/2024 18:28:49 Discharge Complete 04/17/2024 21:49:58 04/17/2024 21:49:58 04/17/2024 21:49:58 ADDRESS: [address] [facility] [id number] PHYS DOC NOTES: Addendum by Kylah Rivas DO on April 17, 2024 14:01:45 EDT MEDICAL INFORMATION: Prescriptions Given: Medications to Continue with No Changes Other Medications albuterol (Albuterol (Eqv-ProAir HFA) 90 mcg/inh inhalation aerosol) 2 Puffs Inhalation every 4 hours. Refills: 0. cholecalciferol (cholecalciferol 50,000 intl units oral capsule) 1 Capsules By Mouth every 7 days. Refills: 1. ferrous sulfate (Slow Iron) fluticasone nasal (fluticasone 0.05 mg/inh Nasal [place]) 1 Sprays Nasal Inhalation every day as needed Allergy symptoms. lamotrigine (lamotrigine 150 mg Tab) 2 Tablets By Mouth every day. Refills: 5. levothyroxine (Levoxyl 137 mcg (0.137 mg) oral tablet) 1 Tablets By Mouth every day. metformin (metformin 1000 mg Tab) 1 Tablets By Mouth 2 times a day. Refills: 3. multivitamin, (M- Plus oral tablet) ondansetron (ondansetron 4 mg Tab) 1 Tablets By Mouth every 8 hours as needed Nausea/Vomiting. PATIENT EDUCATION INFORMATION: Instructions: Supraventricular Tachycardia, Adult Follow up: With: Address: When: Arturo Mon [address] [place] [phone] Business (1) In 3 days 04/20/2024 Comments: Follow-up with cardiology. With: Address: When: Linda Taylor [address], [address], [facility] [address] [place] [address] Business (1) In 3 days 04/20/2024 Comments: Call the office of your primary care doctor to arrange for follow-up within the above-stated timeframe. Follow-up with your primary care doctor about this ED visit. You should review your labs, imaging, and diagnoses from this ED visit with your primary care physician. There are occasionally non-tim (more content not included)... Normal [facility] ED Note-Nursingon 04-17-2024 ED Note-Nursing ED Note-Nursing this RN spoke with JANNET Vickers from OB - requests OB to assess pt again. Alee states they will send someone down to reassess. Normal [facility] ED Note-Physicianon 04-17-20 ED Note-Physician ED Note-Physician Basic Information Time Seen: Arleth AHMADI Anton Sunita 04/17/2024 06:01 Chief Complaint States rapid heart rate for the fourth time this week. Instructed by OB to be elaluated if occurs again. States (L) sided chest pain with radiation into neck. SOB. 31 weeks History of Present Illness Patient is a 39-year-old female G6, P5 currently 30 weeks 6 days gestation presenting to the ED for evaluation of rapid heart rate. Patient follows with Dr. Hooks states that she has had 4 episodes this week of feeling her heart rate seen. She was instructed to come to the ED if she would develop symptoms again. Patient states symptoms started again this morning with pain rating to the left side of her neck and left-sided chest pain. Denies any recent illness, fevers, chills, dizziness or lightheadedness. Review of Systems A 10 point review of systems is negative except as noted above. Medical and Surgical History: Reviewed and noted Social history: Lives at home Tobacco: Denies Physical Exam Vitals & Measurements T: 36.7 ?C(Oral) HR: 122(Monitored) RR: 17 BP: 125/87 SpO2: 98% HT: 157.4 cm WT: 104.1 kg BMI: 42.02 General: Well developed, non toxic appearing, no acute distress HEENT: Head atraumatic, Mucosa moist, hearing grossly normal Neck: No JVD, tracheal deviation Cardiac: Tachycardic, regular rhythm, no murmurs, or gallops, 2+ radial pulses Respiratory: Lungs clear to auscultation B/L, normal respiratory effort Abdomen: Soft non tender, no rebound or guarding, no peritoneal signs Extremities: No edema noted in the LE B/L, no tenderness to palpation Neurologic: Alert and oriented, speech clear Skin: No rashes or lesions Psych: Appropriate mood and behavior Medical Decision Making MEDICAL DECISION MAKING Number and Complexity of Problems Differential Diagnosis: [] [facility] Data External documents reviewed: [] My EKG interpretation: [] My CT interpretation: [] My X-ray interpretation: [] My Ultrasound interpretation: [] Decision rules/scores evaluated: [] Discussed with: [] Treatment and Disposition ED Course: Patient is a 39-year-old female presenting to the ED for evaluation of palpitations. On initial examination patient is in SVT with rates in the 240s. She is currently 30 weeks gestation. IVs are established patient is placed on monitoring. Attempted vagal removers initially without success. Patient did convert with an IV poke just prior to administration of adenosine. Laboratory evaluation is obtained shows potassium of 3.4 and a magnesium of 1.6 otherwise is unremarkable. OB did present to the ED and have patient on monitoring, heart rate is 140 and NST is reactive. Discussed case with Dr. Warren who states from his standpoint patient can be safely discharged. I did reach out to Dr. Singh who advises electrolyte replacements and outpatient follow-up. I discussed this with the patient patient is given 40 mill equivalents of potassium and 1 g of magnesium. Patient signed out to Dr. Rvias pending observation and disposition. Shared decision making: [] Code status: [] Assessment/Plan Hypokalemia (E87.6: Hypokalemia) Sustained SVT (I47.10: Supraventricular tachycardia, unspecified) Orders: magnesium sulfate + Dextrose 5% in Water intravenous solution 100 mL, 1 gram = 100 mL, Soln-IV, IV Piggyback, Once, Stop date 04/17/24 6:41:00 EDT, STAT, Start date 04/17/24 6:41:00 EDT, 100 mL/hr, Infuse over 60 minute(s), 04/17/24 6:41:00 EDT potassium chloride, 40 mEq = 2 tab(s), Tab-ER, Oral, Once, Stop date 04/17/24 6:41:00 EDT, STAT, Start date 04/17/24 6:41:00 EDT, 04/17/24 6:41:00 EDT Sodium Chloride 0.9% intravenous solution 1,000 mL, 1,000 mL, IV, 983.61 mL/hr, for 30 day(s), Stop date 05/17/24 6:22:00 EDT, STAT, Start date 04/17/24 6:23:00 EDT, 61 minute(s), Total volume (mL): 1,000, 104.1 kg, 2.13, m2 Basic Metabolic Panel CBC w/ Auto Diff ECG 12 Lead Adult ECG 12 Lead Adult ED Cardiac Monitoring eGFR Extra SST Tube Magnesium Level Oxygen Saturation Oxygen Therapy PT & PTT Saline Lock Insert Troponin 0 Hr. Troponin 1 Hr. TSH With T4fr Reflex Medications Administered Given Sodium Chloride 0.9% IV Deanna 1000 mL 1,000 mL, 1000 mL, IV magnesium additive 1 gm + Dextrose 5% in Water intravenous solution 100 mL, IV Piggyback potassium chloride 20 mEq ER Tab, 40 mEq, Oral Disposition Plan Discharge Prescription List Prescriptions No active prescription medications Follow-up No qualifying data available Problem List/Past Medical History Ongoing Androgen level above reference range B12 deficiency anemia Bipolar disorder BMI 39.0-39.9,adult Current non-smoker Currently Depressive disorder in mother complicating Elevated blood pressure reading without diagnosis of hypertension Elevated total protein Fatigue Fatty liver High risk High serum testosterone Hy (more content not included)... Normal [facility] Comment on above: Result Comment: Elec tronically Signed By: Kylah Rivas DO\.br\Date and Time Signed: 04/17/24 14:05 EDT ED Note-Physician ED Note-Physician Basic Information Time Seen: Anton Reinoso DO 04/17/2024 06:01 Chief Complaint States rapid heart rate for the fourth time this week. Instructed by OB to be elaluated if occurs again. States (L) sided chest pain with radiation into neck. SOB. 31 weeks History of Present Illness Patient is a 39-year-old female G6, P5 currently 30 weeks 6 days gestation presenting to the ED for evaluation of rapid heart rate. Patient follows with Dr. Hooks states that she has had 4 episodes this week of feeling her heart rate seen. She was instructed to come to the ED if she would develop symptoms again. Patient states symptoms started again this morning with pain rating to the left side of her neck and left-sided chest pain. Denies any recent illness, fevers, chills, dizziness or lightheadedness. Review of Systems A 10 point review of systems is negative except as noted above. Medical and Surgical History: Reviewed and noted Social history: Lives at home Tobacco: Denies Physical Exam Vitals & Measurements T: 36.7 ?C(Oral) HR: 122(Monitored) RR: 17 BP: 125/87 SpO2: 98% HT: 157.4 cm WT: 104.1 kg BMI: 42.02 General: Well developed, non toxic appearing, no acute distress HEENT: Head atraumatic, Mucosa moist, hearing grossly normal Neck: No JVD, tracheal deviation Cardiac: Tachycardic, regular rhythm, no murmurs, or gallops, 2+ radial pulses Respiratory: Lungs clear to auscultation B/L, normal respiratory effort Abdomen: Soft non tender, no rebound or guarding, no peritoneal signs Extremities: No edema noted in the LE B/L, no tenderness to palpation Neurologic: Alert and oriented, speech clear Skin: No rashes or lesions Psych: Appropriate mood and behavior Medical Decision Making MEDICAL DECISION MAKING Number and Complexity of Problems Differential Diagnosis: [] [facility] Data External documents reviewed: [] My EKG interpretation: [] My CT interpretation: [] My X-ray interpretation: [] My Ultrasound interpretation: [] Decision rules/scores evaluated: [] Discussed with: [] Treatment and Disposition ED Course: Patient is a 39-year-old female presenting to the ED for evaluation of palpitations. On initial examination patient is in SVT with rates in the 240s. She is currently 30 weeks gestation. IVs are established patient is placed on monitoring. Attempted vagal removers initially without success. Patient did convert with an IV poke just prior to administration of adenosine. Laboratory evaluation is obtained shows potassium of 3.4 and a magnesium of 1.6 otherwise is unremarkable. OB did present to the ED and have patient on monitoring, heart rate is 140 and NST is reactive. Discussed case with Dr. Warren who states from his standpoint patient can be safely discharged. I did reach out to Dr. Singh who advises electrolyte replacements and outpatient follow-up. I discussed this with the patient patient is given 40 mill equivalents of potassium and 1 g of magnesium. Patient signed out to Dr. Rivas pending observation and disposition. Shared decision making: [] Code status: [] Assessment/Plan Hypokalemia (E87.6: Hypokalemia) Sustained SVT (I47.10: Supraventricular tachycardia, unspecified) Orders: magnesium sulfate + Dextrose 5% in Water intravenous solution 100 mL, 1 gram = 100 mL, Soln-IV, IV Piggyback, Once, Stop date 04/17/24 6:41:00 EDT, STAT, Start date 04/17/24 6:41:00 EDT, 100 mL/hr, Infuse over 60 minute(s), 04/17/24 6:41:00 EDT potassium chloride, 40 mEq = 2 tab(s), Tab-ER, Oral, Once, Stop date 04/17/24 6:41:00 EDT, STAT, Start date 04/17/24 6:41:00 EDT, 04/17/24 6:41:00 EDT Sodium Chloride 0.9% intravenous solution 1,000 mL, 1,000 mL, IV, 983.61 mL/hr, for 30 day(s), Stop date 05/17/24 6:22:00 EDT, STAT, Start date 04/17/24 6:23:00 EDT, 61 minute(s), Total volume (mL): 1,000, 104.1 kg, 2.13, m2 Basic Metabolic Panel CBC w/ Auto Diff ECG 12 Lead Adult ECG 12 Lead Adult ED Cardiac Monitoring eGFR Extra SST Tube Magnesium Level Oxygen Saturation Oxygen Therapy PT & PTT Saline Lock Insert Troponin 0 Hr. Troponin 1 Hr. TSH With T4fr Reflex Medications Administered Given Sodium Chloride 0.9% IV Deanna 1000 mL 1,000 mL, 1000 mL, IV magnesium additive 1 gm + Dextrose 5% in Water intravenous solution 100 mL, IV Piggyback potassium chloride 20 mEq ER Tab, 40 mEq, Oral Disposition Plan Discharge Prescription List Prescriptions No active prescription medications Follow-up No qualifying data available Problem List/Past Medical History Ongoing Androgen level above reference range B12 deficiency anemia Bipolar disorder BMI 39.0-39.9,adult Current non-smoker Currently Depressive disorder in mother complicating Elevated blood pressure reading without diagnosis of hypertension Elevated total protein Fatigue Fatty liver High risk High serum testosterone Hy (more content not included)... Normal [facility] Comment on above: Result Comment: Elec tronically Signed By: Anton Reinoso DO\.br\Date and Time Signed: 04/17/24 07:09 EDT ED Patient Summaryon 024 ED Patient Summary ED Patient Summary [address] [address] Patient Discharge Instructions Person Information Name: ILDA VIERA Age: 39 Years Arrival Date: 04/17/2024 05:56:17 Discharge Diagnosis: Hypokalemia; Sustained SVT Primary Care Physician: Linda Lutz Provider Information Primary Provider: Anton Reinoso DO Advanced Curriculum Assistant:None The exam and treatment you received in the Emergency Department were for an urgent problem and are not intended as complete care. It is important that you follow up with a doctor, nurse practitioner, or physician?s pharmaceutical assistant for ongoing care. If your symptoms become worse or you do not improve as expected and you are unable to reach your usual health care provider, you should return to the Emergency Department. We are available 24 hours a day. ILDA VIERA has been given the following list of patient education materials, prescriptions and follow-up instructions: Follow-up Instructions: With: Address: When: Arturo Mon [address] [place] [phone] Business (1) In 3 days 04/20/2024 Comments: Follow-up with cardiology. With: Address: When: Linda Taylor [address] [facility], [address], [address] [address] Business (1) In 3 days 04/20/2024 Comments: Call the office of your primary care doctor to arrange for follow-up within the above-stated timeframe. Follow-up with your primary care doctor about this ED visit. You should review your labs, imaging, and diagnoses from this ED visit with your primary care physician. There are occasionally non-emergent findings that require additional follow-up after your ED visit. If you were prescribed medications you should discuss possible side-effects and drug interactions with your pharmacist. Call 911 or go to the nearest Emergency Department if you develop any new or worsening symptoms. Seek immediate medical attention if you develop: worsening chest pain, new chest pain, nausea, vomiting, weakness, numbness, tingling, excessive sweating, shortness of breath, difficulty breathing, loss of motion in your arms or legs, or any new or worsening symptoms. In the event that this physician does not participate in your insurance network, please consult with your insurance company to find a nearby participating provider. Patient Education Materials: Supraventricular Tachycardia, Adult A MESSAGE TO ALL PATIENTS REGARDING OPIOIDS PRESCRIPTION OPIOIDS: WHAT YOU NEED TO KNOW Prescription opioids can be used to help relieve yybshina-oh-nuknyl pain and are often prescribed following a surgery or injury, or for certain health conditions. These medications can be an important part of the treatment but also come with serious risks. It is important to work with your healthcare provider to make sure you are getting the safest, most effective care. WHAT ARE THE RISKS AND SIDE EFFECTS OF OPIOID USE? Prescription opioids carry serious risks of addiction and overdose, especially with prolonged use. An opioid overdose, often marked by slowed breathing, can cause sudden . The use of prescription opioids can have a number of side effects as well, even when taken as directed: ? Tolerance?meaning you might need to take more of the medication for the same pain relief ? Physical dependence?meaning you have symptoms of withdrawal when a medication is stopped ? Increased sensitivity to pain ? Constipation ? Nausea, vomiting, and dry mouth ? Sleepiness and dizziness ? Confusion ? Depression ? Low levels of testosterone that can result in lower sex drive, energy, and strength ? Itching and sweating RISKS ARE GREATER WITH: ? History of drug misuse, substance use disorder, or overdose ? Mental health conditions (such as depression or anxiety) ? Sleep apnea ? Older age (65 years and older) ? Avoid alcohol while taking prescription opioids. Also, unless specifically advised by your health care provider, medications to avoid include: ? Benzodiazepines (such as Xanax or Valium) ? Muscle relaxants (such as Soma or Flexeril) ? Hypnotics (such as Ambien or Lunesta) ? Other prescription opioids KNOW YOUR OPTIONS Talk to your health care provider about ways to manage your pain that don?t involve prescription opioids. Some of these options may actually work better and have fewer risks and side effects. Options may include: ? Pain relievers such as acetaminophen, ibuprofen, and naproxen ? Some medication that are also used for depression or seizures ? Physical therapy and exercise ? Cognitive behavioral therapy, a psychological, goal-directed approach, in which patients learn how to modify physical, behavioral, and emotional triggers of pain and stress. IF YOU ARE PRESCRIBED OPIOIDS FOR PAIN: ? Never take opioids in greater amounts or mor (more content not included)... Normal [facility] HEMATOLOGYOrdered By: SYSTEM SYSTEM on 04-17-2024 Basophils/100 WBC (Bld) 0.4 % Normal 0.0 - 2.0 % Remisol Heme Basophils/Leukocytes Auto (Bld) [Pure # fraction] 0.0 E9/L Normal 0.0 - 0.2 E9/L Remisol Heme Eosinophils (Bld) [#/Vol] 0.2 E9/L Normal 0.0 - 0.5 E9/L Remisol Heme Eosinophils/100 WBC (Bld) 2.8 % Normal 0.0 - 8.0 % Remisol Heme Erythrocyte distribution width (RBC) [Ratio] 14.9 % High 10.9 - 14.2 % Remisol Heme Hematocrit (Bld) [Volume fraction] 32.3 % Low 34.0 - 46.0 % Remisol Heme Hemoglobin (Bld) [Mass/Vol] 11.1 g/dL Low 12.0 - 16.0 gm/dL Remisol Heme Lymphocytes (Bld) [#/Vol] 2.5 E9/L Normal 1.0 - 4.0 E9/L Remisol Heme Lymphocytes/100 WBC (Bld) 30.1 % Normal 14.0 - 50.0 % Remisol Heme MCH (RBC) [Entitic mass] 29.8 pg Normal 27.0 - 34.0 pg Remisol Heme MCHC (RBC) [Mass/Vol] 34.3 g/dL Normal 31.4 - 36.0 gm/dL Remisol Heme MCV (RBC) [Entitic vol] 86.9 fL Normal 80.0 - 100.0 fL Remisol Heme Monocytes (Bld) [#/Vol] 0.7 E9/L Normal 0.2 - 1.0 E9/L Remisol Heme Monocytes/100 WBC (Bld) 8.7 % Normal 4.0 - 14.0 % Remisol Heme Neutrophils (Bld) [#/Vol] 4.9 E9/L Normal 2.0 - 7.5 E9/L Remisol Heme Neutrophils/100 WBC (Bld) 58.0 % Normal 36.0 - 75.0 % Remisol Heme Platelet mean volume (Bld) [Entitic vol] 6.5 fL Normal 6.4 - 10.8 fL Remisol Heme Platelets (Bld) [#/Vol] 260.0 E9/L Normal 150.0 - 500.0 E9/L Remisol Heme RBC (Bld) [#/Vol] 3.7 E12/L Low 4.3 - 5.9 E12/L Remisol Heme WBC corrected for nucl RBC Auto (Bld) [#/Vol] 8.5 E9/L Normal 4.0 - 11.0 E9/L Remisol Heme Magnesiumon 04-17-2024 Magnesium [Mass/Vol] 1.6 mg/dL Normal 1.3-2.4 [facility] Comment on above: Performed By: #### 2 [id number] #### [facility] [address] [place] [address] PT & PTTon 04-17-2024 aPTT Coag (PPP) [Time] 29.8 second(s) Normal 25.1-36.5 [facility] Comment on above: Result Comment: Para meter 15 days - 4 weeks 1 - 5 months 6 - 11 months 1 - 5 years 6 - 10 years 11 - 17 years PTT Mean: 35.4 (27.6-45.6) Mean: 33.5 (24.8-40.7) Mean: 32.4 (25.1-40.7) Mean: 31.6 (24.0-39.2) Mean: 31.6 (26.9-38.7) Mean: 31.0 (24.6-38.4) Pediatric Reference ranges were obtained from a study by aaliyah Kim. prepared from 1437 samples obtained at 7 different centers using the same coagulation reagent and instrumentation as [facility]. Currently there are no coagulation studies available worldwide for children to 14 days, and no normal ranges. Heparin therapeutic range (represented by Anti-Factor Xa activity of 0.2 - 0.4 U/mL) corresponds to PTT of 56.6 - 109.0 sec. Performed By: #### 1 [id number] #### [facility] [address] [place] [address] INR Coag (PPP) [Relative time] 0.96 {INR} Invalid Interpretation Code [facility] Comment on above: Result Comment: INR results are specifically intended to assess patients stabilized on long-term Anticoagulation therapy suggested INR?s ?Less Intensive Anticoagulation? 2.0 ? 3.0 Conventional Range 3.0 ? 4.5 Performed By: #### 1 [id number] #### [facility] [address] [place] [address] PT Coag (PPP) [Time] 10.7 second(s) Normal 9.4-12.5 [facility] Comment on above: Result Comment: 15 d ays - 4 weeks 1 - 5 months 6 -11 months 1- 5 years 6-10 years 11 -17 years Mean: 11.2 (9.5-12.6) Mean: 11.0 (9.7-12.8) Mean: 11.0 (9.8-13.0) Mean: 11.3 (9.9-13.4) Mean: 11.7 (10.0-14.6) Mean: 11.8 (10.0 - 14.1) Pediatric Reference ranges were obtained from a study by keyla Kim prepared from 1437 samples obtained at 7 different centers using the same coagulation reagent and instrumentation as [facility]. Currently there are no coagulation studies available worldwide for children to 14 days, and no normal ranges. Performed By: #### 1 [id number] #### [facility] [address] [place] [address] TSH With T4fr Reflexon 04-17 TSH Qn 0.34 m[IU]/L Normal 0.34-5.60 [facility] Comment on above: Performed By: #### 1 [id number] #### [facility] [address] [place] [address] Troponinon 04-17-2024 Troponin HS 93.20 pg/mL Abnormal 10.10-27.10 [facility] Comment on above: Result Comment: Crit ical Result Verified by Previous Result Critical Result I_TnIHS:93.2 Called to and read back by: DR. RIVAS/ER at: 04/17/2024 18:43:51 by:ALISTAIR ROTH The 95% CI (Confidence Interval) PPV (Positive Predictive Value) for myocardial infarction in females is 38 pg/mL, in males 51 pg/mL. The results should be used in conjunction with clinical conditions of myocardial infarction. (Access High Sensitivity Troponin I Instructions For Use, [employer], February 2018) Performed By: #### 2 [id number] #### [facility] [address] [place] [address] Troponin HS 144.60 pg/mL Abnormal 10.10-27.10 [facility] Comment on above: Result Comment: Crit ical Result Verified by Previous Result Critical Result I_TnIHS:144.6 Called to and read back by: NARESH SMITH at: 04/17/2024 12:58:06 by:RICH The 95% CI (Confidence Interval) PPV (Positive Predictive Value) for myocardial infarction in females is 38 pg/mL, in males 51 pg/mL. The results should be used in conjunction with clinical conditions of myocardial infarction. (Access High Sensitivity Troponin I Instructions For Use, [employer] 2018) Performed By: #### 2 [id number] #### [facility] [address] [place] [address] Troponin HS 138.90 pg/mL Abnormal 10.10-27.10 [facility] Comment on above: Result Comment: The 95% CI (Confidence Interval) PPV (Positive Predictive Value) for myocardial infarction in females is 38 pg/mL, in males 51 pg/mL. The results should be used in conjunction with clinical conditions of myocardial infarction. (Access High Sensitivity Troponin I Instructions For Use, [employer], February 2018) Critical Result Verified by Previous Result Critical Result I_TnIHS:138.9 Called to and read back by: MOSES HANDLEY at: 04/17/2024 10:33:43 by:RICH Performed By: #### 2 [id number] #### [facility] [address] [place] [address] Troponin 0 Hr.on 04-17-2024 Troponin HS 10.50 pg/mL Normal 10.10-27.10 [facility] Comment on above: Result Comment: The 95% CI (Confidence Interval) PPV (Positive Predictive Value) for myocardial infarction in females is 38 pg/mL, in males 51 pg/mL. The results should be used in conjunction with clinical conditions of myocardial infarction. (Access High Sensitivity Troponin I Instructions For Use, [employer], February 2018) Performed By: #### 1 [id number] #### [facility] [address] [place] [address] Troponin 1 Hr.on 04-17-2024 Troponin HS 51.90 pg/mL Abnormal 10.10-27.10 [facility] Comment on above: Result Comment: Crit ical Result I_TnIHS:51.9 Called to and read back by: MOSES HANDLEY at: 04/17/2024 08:40:46 by:RICH Critical Result Verified by Repeat Analysis The 95% CI (Confidence Interval) PPV (Positive Predictive Value) for myocardial infarction in females is 38 pg/mL, in males 51 pg/mL. The results should be used in conjunction with clinical conditions of myocardial infarction. (Access High Sensitivity Troponin I Instructions For Use, [employer], February 2018) Performed By: #### 1 [id number] #### [facility] [address] [place] [address] UA with Cult Rflxon 04-17-20 24 Bilirubin Ql (U) Negative Normal Negative [facility] Comment on above: Performed By: #### 4 [id number] #### [facility] [address] [place] [address] Clarity (U) Clear Normal Clear [facility] Comment on above: Performed By: #### 4 [id number] #### [facility] [address] [place] [address] Color (U) Colorless Abnormal Yellow [facility] Comment on above: Result Comment: Micr oscopic readings are only performed on those samples that meet specific criteria set forth by [facility]. Performed By: #### 4 [id number] #### [facility] [address] [place] [address] Glucose Ql (U) Negative Normal Negative [facility] Comment on above: Performed By: #### 4 [id number] #### [facility] [address] [place] [address] Hemoglobin Auto test strip (U) [Mass/Vol] Negative Normal Negative [facility] Comment on above: Performed By: #### 4 [id number] #### [facility] [address] [place] [address] Ketones Auto test strip Ql (U) Negative Normal Negative [facility] Comment on above: Performed By: #### 4 [id number] #### [facility] [address] [place] [address] Leukocyte esterase Auto test strip Ql (U) Negative Normal Negative [facility] Comment on above: Performed By: #### 4 [id number] #### [facility] [address] [place] [address] Nitrite Auto test strip Ql (U) Negative Normal Negative [facility] Comment on above: Performed By: #### 4 [id number] #### [facility] [address] [place] [address] pH (U) 6.5 [pH] Invalid Interpretation Code 5.0-9.0 [facility] Comment on above: Performed By: #### 4 [id number] #### [facility] [address] [place] [address] Protein Ql (U) Negative Normal Negative [facility] Comment on above: Performed By: #### 4 [id number] #### [facility] [address] [place] [address] Specific gravity (U) [Rel density] 1.003 Invalid Interpretation Code 1.005-1.030 [facility] Comment on above: Performed By: #### 4 [id number] #### [facility] [address] [place] [address] Urobilinogen (U) [Mass/Vol] Negative Normal Negative [facility] Comment on above: Performed By: #### [id number] #### [facility] [address] [place] [address] Type of Urine collection method Clean Catch Normal [facility] Comment on above: Performed By: #### 4 [id number] #### [facility] [address] [place] [address] URINALYSISOrdered By: SYSTEM SYSTEM on 04-17-2024 Bilirubin Ql (U) Negative Normal Negativemg/ d L [facility] UA Auto SS Clarity (U) Clear (04/17/24 7:04 AM) Normal Clear [facility] UA Auto SS Color (U) Colorless 1 *ABN* (04/17/24 7:04 AM) Invalid Interpretation Code Yellow [facility] UA Auto SS Comment on above: Interpretive Data: M icroscopic readings are only performed on those samples that meet specific criteria set forth by [facility]. Glucose Ql (U) Negative Normal Negativemg/d L [facility] UA Auto SS Hemoglobin Auto test strip (U) [Mass/Vol] Negative Normal Negativemg/d L [facility] UA Auto SS Ketones Auto test strip Ql (U) Negative Normal Negativemg/d L [facility] UA Auto SS Leukocyte esterase Auto test strip Ql (U) Negative Normal NegativeLeu/ uL [facility] UA Auto SS Nitrite Auto test strip Ql (U) Negative Normal Negativemg/d L [facility] UA Auto SS pH (U) 6.5 *NA* (04/17/24 7:04 AM) Invalid Interpretation Code 5.0 - 9.0 [facility] UA Auto SS Protein Ql (U) Negative Normal Negativemg/d L [facility] UA Auto SS Specific gravity (U) [Rel density] 1.003 *NA* (04/17/24 7:04 AM) Invalid Interpretation Code 1.005 - 1.030 [facility] UA Auto SS Urobilinogen (U) [Mass/Vol] Negative Normal Negativemg/d L [facility] UA Auto SS URINALYSISOrdered By: Beth Peña on 04-17-2024 UA Spec Desc Clean Catch (04/17/24 7:04 AM) Normal [facility] UA Auto SS eGFRon 04-17-2024 eGFR 130 mL/min/1.73 m2 Normal >=59 [facility] Comment on above: Performed By: #### 1 [id number] #### [facility] [address] [place] [id number] No Panel Informationon 04-07 Glucose, UA Negative Negative - 1999(110) ++++ mg/dL [facility] Interpretation and review of laboratory results Normal [facility] Protein, UA Trace Negative - 1999(20) ++++ mg/dL [facility] C Urineon 04-03-2024 Bacteria identified Cx Nom (U) Microbiology PROCEDURE: Urine Culture [R1] SOURCE: U CleanCatch BODY SITE: COLLECTED DATE/TIME: 04/01/2024 17:37 EDT RECEIVED DATE/TIME: 04/01/2024 19:06 EDT START DATE/TIME: 04/01/2024 19:06 EDT FREE TEXT SOURCE: Neva Pearson DO, DO, Mona J. FINAL REPORTS Final Report [] Verified Date/Time: 04/03/2024 10:29 EDT <10,000 cfu/ml Mixed skin contaminants Performing Locations R1: This test was performed at: [facility], [address] [place] [address], [phone] , [place], Normal [facility] Comment on above: Performed By: #### 2 [id number] #### [facility] [address] [place] [address] BUNon 04-01-2024 Urea nitrogen [Mass/Vol] 5 mg/dL Normal 5-21 [facility] Comment on above: Performed By: #### 2 [id number] #### [facility] [address] [place] [address] CBC w/Indiceson 04-01-2024 Erythrocyte distribution width (RBC) [Ratio] 14.4 % High 10.9-14.2 [facility] Comment on above: Performed By: #### 2 [id number] #### [facility] [address] [place] [address] Hematocrit (Bld) [Volume fraction] 28.9 % Low 34.0-46.0 [facility] Comment on above: Performed By: #### 2 [id number] #### [facility] [address] [place] [address] Hemoglobin (Bld) [Mass/Vol] 10.1 g/dL Low 12.0-16.0 [facility] Comment on above: Performed By: #### 2 [id number] #### [facility] [address] [place] [address] MCH (RBC) [Entitic mass] 30.1 pg Normal 27.0-34.0 [facility] Comment on above: Performed By: #### 2 [id number] #### [facility] [address] [place] [address] MCHC (RBC) [Mass/Vol] 35.0 g/dL Normal 31.4-36.0 [facility] Comment on above: Performed By: #### 2 [id number] #### [facility] [address] [place] [address] MCV (RBC) [Entitic vol] 86.0 fL Normal 80.0-100.0 [facility] Comment on above: Performed By: #### 2 [id number] #### [facility] [address] [place] [address] Platelet 290.0 E9/L Normal 150.0-500.0 [facility] Comment on above: Performed By: #### 2 [id number] #### [facility] [address] [place] [address] Platelet mean volume (Bld) [Entitic vol] 6.6 fL Normal 6.4-10.8 [facility] Comment on above: Performed By: #### 2 [id number] #### [facility] [address] [place] [address] RBC (Bld) [#/Vol] 3.4 E12/L Low 4.3-5.9 [facility] Comment on above: Performed By: #### 2 [id number] #### [facility] [address] [place] [address] RBC size Nom (Bld) NORMAL Invalid Interpretation Code [facility] Comment on above: Performed By: #### 2 [id number] #### [facility] [address] [place] [address] WBC corrected for nucl RBC Auto (Bld) [#/Vol] 10.2 E9/L Normal 4.0-11.0 [facility] Comment on above: Performed By: #### 2 [id number] #### [facility] [address] [place] [address] CHEMISTRYOrdered By: SYSTEM SYSTEM on 04-01-2024 Albumin [Mass/Vol] 3.4 g/dL Normal 3.3 - 5.0 gm/dL Rem[facility] Chem Albumin/Globulin [Mass ratio] 1.0 {ratio} Low 1.1 - 2.2 [facility] Chem ALP [Catalytic activity/Vol] 107 [iU]/d High 21 - 98 Int._Unit/L [facility] Chem ALT No additional P-5'-P [Catalytic activity/Vol] 10 [iU]/d Normal 6 - 46 Int._Unit/L [facility] Chem Anion gap [Moles/Vol] 12 mmol/L Normal 6 - 16 mEq/L R emisol Chem AST [Catalytic activity/Vol] 11 [iU]/d Normal 5 - 43 Int._Unit/L [facility] Chem Bilirubin [Mass/Vol] 0.3 mg/dL Normal 0.0 - 1 .1 mg/dL [facility] Chem Bilirubin.direct [Mass/Vol] 0.0 mg/dL Normal 0.0 - 0.4 mg/dL [facility] Chem Bilirubin.indirect [Mass or moles/Vol] 0.3 mg/dL Normal 0.1 - 0.9 mg/dL [facility] Chem Chloride [Moles/Vol] 105 mmol/L Normal 101 - 1 11 mmol/L [facility] Chem CO2 [Moles/Vol] 22 mmol/L Normal 21 - 31 mmol/L [facility] Chem Creatinine [Mass/Vol] 0.4 mg/dL Low 0.5 - 1.3 mg/dL [facility] Chem eGFR 130 mL/min/1.73 m2 Normal >=59mL/mi n/1 .73 m2 [facility] Chem Globulin (S) [Mass/Vol] 3.5 g/dL Normal 1.4 - 4.0 gm/dL [facility] Potassium [Moles/Vol] 3.4 mmol/L Low 3.5 - 5.3 mmol/L [facility] Chem Protein [Mass/Vol] 6.9 g/dL Normal 6.0 - 7.8 gm/dL [facility] Chem Sodium [Moles/Vol] 136 mmol/L Normal 135 - 145 mmol/L [facility] Chem Urate [Mass/Vol] 4.9 mg/dL Normal 2.2 - 7.4 mg/dL [facility] Chem Urea nitrogen [Mass/Vol] 5 mg/dL Normal 5 - 21 mg/dL [facility] Chem COAGULATIONOrdered By: Robby Tavera on 04-01-2024 aPTT Coag (PPP) [Time] 29.2 s Normal 25.1 - 36.5 second(s) [facility] Auto Coag Comment on above: Interpretive Data: Bari romero 15 days - 4 weeks 1 - 5 months 6 - 11 months 1 - 5 years 6 - 10 years 11 - 17 years PTT Mean: 35.4 (27.6-45.6) Mean: 33.5 (24.8-40.7) Mean: 32.4 (25.1-40.7) Mean: 31.6 (24.0-39.2) Mean: 31.6 (26.9-38.7) Mean: 31.0 (24.6-38.4) Pediatric Reference ranges were obtained from a study by Teddy Coello et al. prepared from 1437 samples obtained at 7 different centers using the same coagulation reagent and instrumentation as [facility]. Currently there are no coagulation studies available worldwide for children to 14 days, and no normal ranges. Heparin therapeutic range (represented by Anti-Factor Xa activity of 0.2 - 0.4 U/mL) corresponds to PTT of 56.6 - 109.0 sec. Fibrinogen Coag (PPP) [Mass/Vol] 454 mg/dL High 200 - 393 mg/dL [facility] Auto Coag INR Coag (PPP) [Relative time] 0.93 {INR} Invalid Interpretation Code [facility] Auto Coag Comment on above: Interpretive Data: I NR results are specifically intended to assess patients stabilized on long-term Anticoagulation therapy suggested INR s Less Intensive Anticoagulation 2.0 3.0 Conventional Range 3.0 4.5 PT Coag (PPP) [Time] 10.4 s Normal 9.4 - 1 2.5 second(s) [facility] Comment on above: Interpretive Data: 1 5 days - 4 weeks 1 - 5 months 6 -11 months 1 5 years 6 10 years 11 -17 years Mean: 11.2 (9.5 12.6) Mean: 11.0 (9.7 12.8) Mean: 11.0 (9.8 13.0) Mean: 11.3 (9.9 13.4) Mean: 11.7 (10.0 14.6) Mean: 11.8 (10.0 - 14.1) Pediatric Reference ranges were obtained from a study by Teddy Coello et al. prepared from 1437 samples obtained at 7 different centers using the same coagulation reagent and instrumentation as [facility]. Currently there are no coagulation studies available worldwide for children to 14 days, and no normal ranges. Creatinineon 04-01-2024 Creatinine [Mass/Vol] 0.4 mg/dL Low 0.5-1.3 [facility] Comment on above: Performed By: #### 2 [id number] #### [facility] [address] [place] [address] Fibrinogenon 04-01-2024 Fibrinogen Coag (PPP) [Mass/Vol] 454 mg/dL High 200-393 [facility] Comment on above: Performed By: #### 2 [id number] #### [facility] [address] [place] [address] HEMATOLOGYOrdered By: SYSTEM SYSTEM on 04-01-2024 Erythrocyte distribution width (RBC) [Ratio] 14.4 % High 10.9 - 14.2 % [facility] Heme Hematocrit (Bld) [Volume fraction] 28.9 % Low 34.0 - 46.0 % Rem[facility] Heme Hemoglobin (Bld) [Mass/Vol] 10.1 g/dL Low 12.0 - 16.0 gm/dL [facility] Heme MCH (RBC) [Entitic mass] 30.1 pg Normal 27.0 - 34.0 pg Remisol Heme MCHC (RBC) [Mass/Vol] 35.0 g/dL Normal 31.4 - 36.0 gm/dL [facility] Heme MCV (RBC) [Entitic vol] 86.0 fL Normal 80.0 - 100.0 fL [facility] Heme Platelet 290.0 E9/L Normal 150.0 - 500.0 E9/L [facility] Heme Platelet mean volume (Bld) [Entitic vol] 6.6 fL Normal 6.4 - 10.8 fL Rem[facility] Heme RBC (Bld) [#/Vol] 3.4 E12/L Low 4.3 - 5.9 E12/L [facility] Heme RBC size Nom (Bld) NORMAL *NA* (04/01/24 7:24 PM) Invalid Interpretation Code Remisol Heme WBC corrected for nucl RBC Auto (Bld) [#/Vol] 10.2 E9/L Normal 4.0 - 11.0 E9/L [facility] Heme Hep Func Panelon 04-01-2024 Albumin [Mass/Vol] 3.4 g/dL Normal 3.3-5.0 [facility] Comment on above: Performed By: #### 2 [id number] #### [facility] [address] [place] [address] Albumin/Globulin (S) [Mass conc ratio] 1.0 Low 1.1-2.2 [facility] Comment on above: Performed By: #### 2 [id number] #### [facility] [address] [place] [address] ALP [Catalytic activity/Vol] 107 Int._Unit/L High 21-98 [facility] Comment on above: Performed By: #### 2 [id number] #### [facility] [address] [place] [address] ALT No additional P-5'-P [Catalytic activity/Vol] 10 Int._Unit/L Normal 6-46 [facility] Comment on above: Performed By: #### 2 [id number] #### [facility] [address] [place] [address] AST [Catalytic activity/Vol] 11 Int._Unit/L Normal 5-43 [facility] Comment on above: Performed By: #### 2 [id number] #### [facility] [address] [place] [address] Bilirubin [Mass/Vol] 0.3 mg/dL Normal 0.0-1.1 [facility] Comment on above: Performed By: #### 2 [id number] #### [facility] [address] [place] [address] Bilirubin.direct [Mass/Vol] 0.0 mg/dL Normal 0.0-0.4 [facility] Comment on above: Performed By: #### 2 [id number] #### [facility] [address] [place] [address] Bilirubin.indirect [Mass or moles/Vol] 0.3 mg/dL Normal 0.1-0.9 [facility] Comment on above: Performed By: #### 2 [id number] #### [facility] [address] [place] [address] Globulin (S) [Mass/Vol] 3.5 g/dL Normal 1.4-4.0 [facility] Comment on above: Performed By: #### 2 [id number] #### [facility] [address] [place] [address] Protein [Mass/Vol] 6.9 g/dL Normal 6.0-7.8 [facility] Comment on above: Performed By: #### 2 [id number] #### [facility] [address] [place] [address] Inpatient Clinical Summaryon 04-01-2024 Inpatient Clinical Summary Inpatient Clinical Summary [address] [address] Clinical Summary Person Information Name: ILDA VIERA [facility] Age: 39 Years : 1985 Sex: Female PCP: Linda Lutz Marital Status: Race: White Ethnicity: Non- or Language: Icelandic Visit Id: Visit Reason: OBSERVATION Speciality: Acuity: Obs Enc Type: Outpatient Med Service: Obstetrics Arrival: 04/01/2024 17:14:10 Discharge: 04/01/2024 20:43:34 Dispo Type: Home (Routine DC) Address: [address] [place] [address] [address] [facility] [id number] Provider Notes: Diagnosis: Problems Active (04/01/2024) Iron deficiency anemia of mother during B12 deficiency anemia Elevated total protein Currently BMI 39.0-39.9,adult Fatty liver Obesity (BMI 30-39.9) Elevated blood pressure reading without diagnosis of hypertension Fatigue Wellness examination Bipolar disorder (08/28/2017) Depressive disorder in mother complicating (08/28/2017) High risk (08/28/2017) Androgen level above reference range (03/14/2023) Maternal obesity complicating , childbirth and the puerperium, antepartum (08/28/2017) Obesity caused by energy imbalance (03/14/2023) Serum testosterone level outside reference range Sinusitis Recurrent sinusitis High serum testosterone Current non-smoker Polycystic ovary syndrome Vitamin D deficiency Hypothyroid Hyperinsulinemia Smoking Status: Never Smoker Functional Status: Sensory Deficits: History of Falls: Mobility Assistance Prior to Admission: ADLs: Current Level of Assistance for Self-Care/Mobility: Cognitive Status: Allergies Nubain (hallucin) (Hallucination) Alcohol (Anaphylaxis) Laboratory or Other Results This Visit (last charted value for your 04/01/2024 visit) Hematology 04/01/2024 7:24 PM RBC Morph: NORMAL Hct: 28.9 % -- Normal range between ( 34.0 and 46.0 ) HGB: 10.1 gm/dL -- Normal range between ( 12.0 and 16.0 ) RBC: 3.4 E12/L -- Normal range between ( 4.3 and 5.9 ) RDW: 14.4 % -- Normal range between ( 10.9 and 14.2 ) MCH: 30.1 pg -- Normal range between ( 27.0 and 34.0 ) MCHC: 35.0 gm/dL -- Normal range between ( 31.4 and 36.0 ) MCV: 86.0 fL -- Normal range between ( 80.0 and 100.0 ) MPV: 6.6 fL -- Normal range between ( 6.4 and 10.8 ) Platelet: 290.0 E9/L -- Normal range between ( 150.0 and 500.0 ) WBC: 10.2 E9/L -- Normal range between ( 4.0 and 11.0 ) Coagulation 04/01/2024 7:24 PM INR: 0.93 Fibrinogen: 454 mg/dL -- Normal range between ( 200 and 393 ) PT: 10.4 second(s) -- Normal range between ( 9.4 and 12.5 ) PTT: 29.2 second(s) -- Normal range between ( 25.1 and 36.5 ) Urinalysis 04/01/2024 5:37 PM UA Bacteria: 3+ /HPF UA Bili: Negative mg/dL UA Color: Yellow UA Glucose: Negative mg/dL UA Ketones: Negative mg/dL UA Leuk Est: Negative Nico/uL UA Mucous: 1+ graded/LPF UA Nitrite: Negative mg/dL UA Protein: Trace mg/dL UA RBC: 4-20 graded/HPF UA Squam Epithelial: >10 graded/HPF UA Urobilinogen: Negative mg/dL UA WBC: 0-5 graded/HPF UA Spec Desc: Clean Catch UA Blood: Negative mg/dL UA Clarity: Turbid UA pH: 6.0 -- Normal range between ( 5.0 and 9.0 ) UA Spec Grav: 1.023 -- Normal range between ( 1.005 and 1.030 ) Chemistry 04/01/2024 7:24 PM Creatinine: 0.4 mg/dL -- Normal range between ( 0.5 and 1.3 ) A/G Ratio: 1.0 -- Normal range between ( 1.1 and 2.2 ) AGAP: 12 mEq/L -- Normal range between ( 6 and 16 ) Albumin Lvl: 3.4 gm/dL -- Normal range between ( 3.3 and 5.0 ) Alk Phos: 107 Int._Unit/L -- Normal range between ( 21 and 98 ) ALT: 10 Int._Unit/L -- Normal range between ( 6 and 46 ) AST: 11 Int._Unit/L -- Normal range between ( 5 and 43 ) Bili Direct: 0.0 mg/dL -- Normal range between ( 0.0 and 0.4 ) Bili Total: 0.3 mg/dL -- Normal range between ( 0.0 and 1.1 ) CO2: 22 mmol/L -- Normal range between ( 21 and 31 ) Sodium Lvl: 136 mmol/L -- Normal range between ( 135 and 145 ) Total Protein: 6.9 gm/dL -- Normal range between ( 6.0 and 7.8 ) BUN: 5 mg/dL -- Normal range between ( 5 and 21 ) Potassium Lvl: 3.4 mmol/L -- Normal range between ( 3.5 and 5.3 ) Uric Acid: 4.9 mg/dL -- Normal range between ( 2.2 and 7.4 ) Chloride: 105 mmol/L -- Normal range between ( 101 and 111 ) Bili Indirect: 0.3 mg/dL -- Normal range between ( 0.1 and 0.9 ) eGFR: 130 mL/min/1.73 m2 Globulin: 3.5 gm/dL -- Normal range between ( 1.4 and 4.0 ) Measurements: Height: 157.48 cm Weight: 102.6 kg Blood Pressure: 135 mmHg / 74 mmHg BMI: 41.37 kg/m2 Procedures No Procedures Documented Immunizations No Immunizations Documented This Visit Final Med List: albuterol (Albuterol (Eqv-ProAir HFA) 90 mcg/inh inhalation aerosol) 2 Puffs Inhalation ev (more content not included)... Normal [facility] Inpatient Patient Summaryon 04-01-2024 Inpatient Patient Summary Inpatient Patient Summary [place] [address] Patient Discharge Instructions PERSON INFORMATION Name: ILDA VIERA Date of : 1985 Current Date: 04/01/2024 20:57:15 PHYSICIANS Admitting Physician: Neva Pearson DO Primary Care Physician: Linda Lutz PCP Comment: Discharge Diagnosis: Condition at Discharge: ILDA VIERA has been given the following list of follow-up instructions, prescriptions, and patient education materials: PATIENT FOLLOW-UP INFORMATION Diet: Activity: Wound Care Instructions: Remove Your Dressing IN: Days Call Your Doctor For: IF UNABLE TO CONTACT YOUR PHYSICIAN AND YOU FEEL IT IS AN EMERGENCY, GO TO THE NEAREST EMERGENCY ROOM OR CALL 911 Home Treatment: Devices/Equipment: Special Services: Additional Instructions: Physician to provide the following pending test results: Follow up: With: Address: When: Neva Stokesluis escott [address], [address] [address] Business (1) In 6 days 04/07/2024 Comments: Call for any problems. Call for severe abdominal pain Call physician if symptoms worsen Return for decreased movement Return if ruptured membranes or vaginal bleeding Keep followup appointment Take Tylenol as prescribed on bottle at home In the event that this physician does not participate in your insurance network, please consult with your insurance company to find a nearby participating provider. Type Location Start [facility] ONC Venofer (FT) FT.ONCOLOGY 04/06/2024 11:00 AM 04/06/2024 1:00 PM Confirmed ONC Injection (FT) FT.ONCOLOGY 04/06/2024 1:00 PM 04/06/2024 1:15 PM Confirmed ONC Venofer (FT) FT.ONCOLOGY 04/13/2024 11:00 AM 04/13/2024 1:00 PM Confirmed ONC Injection (FT) FT.ONCOLOGY 04/13/2024 1:15 PM 04/13/2024 1:30 PM Confirmed ONC Venofer (FT) FT.ONCOLOGY 04/20/2024 11:00 AM 04/20/2024 1:00 PM Confirmed ONC Injection (FT) FT.ONCOLOGY 04/20/2024 1:00 PM 04/20/2024 1:15 PM Confirmed ONC Injection (FT) FT.ONCOLOGY 04/27/2024 2:30 PM 04/27/2024 2:45 PM Confirmed ONC Injection (FT) FT.ONCOLOGY 05/04/2024 2:00 PM 05/04/2024 2:15 PM Confirmed ONC Office Visit 20 (FT) FT.ONCOLOGY 05/11/2024 9:20 AM 05/11/2024 9:40 AM Confirmed ONC Injection (FT) FT.ONCOLOGY 05/18/2024 1:00 PM 05/18/2024 1:15 PM Confirmed Comment: SALVADOR Boyle ASHLEE K have received the attached patient education materials/instructions and have verbalized understanding. Patient Signature ____ Date Clinican/Nurse Signature Date MEDICATION LIST Medications to Continue with No Changes Other Medications albuterol (Albuterol (Eqv-ProAir HFA) 90 mcg/inh inhalation aerosol) 2 Puffs Inhalation every 4 hours. Refills: 0. Last Dose: Next Dose: cholecalciferol (cholecalciferol 50,000 intl units oral capsule) 1 Capsules By Mouth every 7 days. Refills: 1. Last Dose: Next Dose: ferrous sulfate (Slow Iron) , 65 mg BID Last Dose: Next Dose: fluticasone nasal (fluticasone 0.05 mg/inh Nasal [place]) 1 Sprays Nasal Inhalation every day as needed Allergy symptoms. Last Dose: Next Dose: lamotrigine (lamotrigine 150 mg Tab) 2 Tablets By Mouth every day. Refills: 5. Last Dose: Next Dose: levothyroxine (Levoxyl 137 mcg (0.137 mg) oral tablet) 1 Tablets By Mouth every day. Last Dose: Next Dose: metformin (metformin 1000 mg Tab) 1 Tablets By Mouth 2 times a day. Refills: 3. Last Dose: Next Dose: multivitamin, (M-Jacinta Plus oral tablet) Last Dose: Next Dose: ondansetron (ondansetron 4 mg Tab) 1 Tablets By Mouth every 8 hours as needed Nausea/Vomiting. Last Dose: Next Dose: Pharmacy Information: PATIENT EDUCATION INFORMATION Instructions: Hypertension During High blood pressure (hypertension) is when the force of blood pumping through the arteries is high enough to cause problems with your health. Arteries are blood vessels that carry blood from the heart throughout the body. Hypertension during can cause problems for you and your baby. It can be mild or severe. There are different types of hypertension that can happen during . These include: ? Chronic hypertension. This happens when you had high blood pressure before you became , and it continues during the . Hypertension that develops before you are 20 weeks and continues during the is also called chronic (more content not included)... Normal [facility] Lyteson 04-01-2024 Anion gap [Moles/Vol] 12 mmol/L Normal 6-16 [facility] Comment on above: Performed By: #### 2 [id number] #### [facility] [address] [place] [address] Chloride [Moles/Vol] 105 mmol/L Normal 101-111 [facility] Comment on above: Performed By: #### 2 [id number] #### [facility] [address] [place] [address] CO2 [Moles/Vol] 22 mmol/L Normal 21-31 [facility] Comment on above: Performed By: #### 2 [id number] #### [facility] [address] [place] [address] Potassium [Moles/Vol] 3.4 mmol/L Low 3.5-5.3 [facility] Comment on above: Performed By: #### 2 [id number] #### [facility] [address] [place] [address] Sodium [Moles/Vol] 136 mmol/L Normal 135-145 [facility] Comment on above: Performed By: #### 2 [id number] #### [facility] [address] [place] [address] PT & PTTon 04-01-2024 aPTT Coag (PPP) [Time] 29.2 second(s) Normal 25.1-36.5 [facility] Comment on above: Result Comment: Para meter 15 days - 4 weeks 1 - 5 months 6 - 11 months 1 - 5 years 6 - 10 years 11 - 17 years PTT Mean: 35.4 (27.6-45.6) Mean: 33.5 (24.8-40.7) Mean: 32.4 (25.1-40.7) Mean: 31.6 (24.0-39.2) Mean: 31.6 (26.9-38.7) Mean: 31.0 (24.6-38.4) Pediatric Reference ranges were obtained from a study by Teddy Coello et al. prepared from 1437 samples obtained at 7 different centers using the same coagulation reagent and instrumentation as [facility]. Currently there are no coagulation studies available worldwide for children to 14 days, and no normal ranges. Heparin therapeutic range (represented by Anti-Factor Xa activity of 0.2 - 0.4 U/mL) corresponds to PTT of 56.6 - 109.0 sec. Performed By: #### 1 [id number] #### [facility] [address] [place] [address] INR Coag (PPP) [Relative time] 0.93 {INR} Invalid Interpretation Code [facility] Comment on above: Result Comment: INR results are specifically intended to assess patients stabilized on long-term Anticoagulation therapy suggested INR?s ?Less Intensive Anticoagulation? 2.0 ? 3.0 Conventional Range 3.0 ? 4.5 Performed By: #### 1 [id number] #### [facility] [address] [place] [address] PT Coag (PPP) [Time] 10.4 second(s) Normal 9.4-12.5 [facility] Comment on above: Result Comment: 15 d ays - 4 weeks 1 - 5 months 6 -11 months 1 ? 5 years 6 ? 10 years 11 -17 years Mean: 11.2 (9.5 ? 12.6) Mean: 11.0 (9.7 ? 12.8) Mean: 11.0 (9.8 ? 13.0) Mean: 11.3 (9.9 ? 13.4) Mean: 11.7 (10.0 ? 14.6) Mean: 11.8 (10.0 - 14.1) Pediatric Reference ranges were obtained from a study by Teddy Coello et al. prepared from 1437 samples obtained at 7 different centers using the same coagulation reagent and instrumentation as [facility]. Currently there are no coagulation studies available worldwide for children to 14 days, and no normal ranges. Performed By: #### 1 [id number] #### [facility] [address] [place] [address] UA WITH CULT RFLXon 04-01-20 24 BACTERIA:PRTHR:PT:URI NE:ORD:AUTOMATED 3+ Abnormal Trace /HPF [facility] BILIRUBIN:PRTHR:PT:UR INE:ORD:TEST STRIP.AUTOMATED Negative Negative mg/dL [facility] EPITHELIAL CELLS.SQUAMOUS:NARIC: PT:URINE SED:QN:AUTOMATED COUNT >10 CD:[id number] [facility] ERYTHROCYTES:PRTHR:PT :URINE SED:ORD[facility] Abnormal [facility] CLARITY:TYPE:PT:URINE :NOM: Turbid Abnormal Clear [facility] CLASS:TYPE:PT:URINE COLLECTION METHOD:NOM:* Clean Catch [facility] COLOR:TYPE:PT:URINE:N OM:AUTO Yellow Yellow [facility] Comment on above: Microscopic readings are only performed on those samples that meet specific criteria set forth by [facility]. [facility] PH:LSCNC:PT:URINE:QN: TEST STRIP 6.0 5.0 - 9.0 [facility] SPECIFIC GRAVITY:RDEN:PT:URINE :QN:TEST STRIP 1.023 1.005 - 1.030 [facility] GLUCOSE:PRTHR:PT:URIN E:ORD:TEST STRIP Negative Negative mg/dL [facility] HEMOGLOBIN:MCNC:PT:UR INE:SEMIQN:TEST STRIP.AUTOMATED Negative Negative mg/dL [facility] Interpretation and review of laboratory results Abnormal [facility] KETONES:PRTHR:PT:URIN E:ORD:TEST STRIP.AUTOMATED Negative Negative mg/dL [facility] LEUKOCYTE ESTERASE:PRTHR:PT:URI NE:ORD:TEST STRIP.AUTOMATED Negative Negative CD:[id number] [facility] LEUKOCYTES:NARIC:PT:U RINE SED:QN:AUTOMATED COUNT 0-5 [facility] MUCUS:PRTHR:PT:URINE: ORD:AUTOMATED 1+ Abnormal Negative CD:[id number] [facility] NITRITE:PRTHR:PT:URIN E:ORD:TEST STRIP.AUTOMATED Negative Negative mg/dL [facility] PROTEIN:PRTHR:PT:URIN E:ORD:TEST STRIP Trace Abnormal Negative mg/dL [facility] UROBILINOGEN:MCNC:PT: URINE:SEMIQN:TEST STRIP Negative Negative mg/dL [facility] Original Ordering Provider: DO Neva Pearson [facility] UA with Cult Rflxon 04-01-20 24 Bacteria Auto Ql (U) 3+ /HPF Abnormal Trace [facility] Comment on above: Performed By: #### 4 [id number] #### [facility] [address] [place] [address] Bilirubin Ql (U) Negative Normal Negative [facility] Comment on above: Performed By: #### 4 [id number] #### [facility] [address] [place] [address] Clarity (U) Turbid Abnormal Clear [facility] Comment on above: Performed By: #### 4 [id number] #### [facility] [address] [place] [address] Color (U) Yellow Normal Yellow [facility] Comment on above: Result Comment: Micr oscopic readings are only performed on those samples that meet specific criteria set forth by [facility]. Performed By: #### 4 [id number] #### [facility] [address] [place] [address] Epithelial cells.squamous Auto (Urine sed) [#/Area] >10 Invalid Interpretation Code [facility] Comment on above: Performed By: #### 4 [id number] #### [facility] [address] [place] [address] Glucose Ql (U) Negative Normal Negative [facility] Comment on above: Performed By: #### 4 [id number] #### [facility] [address] [place] [address] Hemoglobin Auto test strip (U) [Mass/Vol] Negative Normal Negative [facility] Comment on above: Performed By: #### 4 [id number] #### [facility] [address] [place] [address] Ketones Auto test strip Ql (U) Negative Normal Negative [facility] Comment on above: Performed By: #### 4 [id number] #### [facility] [address] [place] [address] Leukocyte esterase Auto test strip Ql (U) Negative Normal Negative [facility] Comment on above: Performed By: #### 4 [id number] #### [facility] [address] [place] [address] Mucus Auto Ql (U) 1+ CD:[id number] Abnormal Negative [facility] Comment on above: Performed By: #### 4 [id number] #### [facility] [address] [place] [address] Nitrite Auto test strip Ql (U) Negative Normal Negative [facility] Comment on above: Performed By: #### 4 [id number] #### [facility] [address] [place] [address] pH (U) 6.0 [pH] Invalid Interpretation Code 5.0-9.0 [facility] Comment on above: Performed By: #### 4 [id number] #### [facility] [address] [place] [address] Protein Ql (U) Trace Abnormal Negative [facility] Comment on above: Performed By: #### 4 [id number] #### [facility] [address] [place] [address] RBC Ql (U) 4-20 Abnormal 0-3 [facility] Comment on above: Performed By: #### 4 [id number] #### [facility] [address] [place] [address] Specific gravity (U) [Rel density] 1.023 Invalid Interpretation Code 1.005-1.030 [facility] Comment on above: Performed By: #### 4 [id number] #### [facility] [address] [place] [address] Urobilinogen (U) [Mass/Vol] Negative Normal Negative [facility] Comment on above: Performed By: #### 4 [id number] #### [facility] [address] [place] [address] WBC Auto (Urine sed) [#/Area] 0-5 Normal 0-5 [facility] Comment on above: Performed By: #### 4 [id number] #### [facility] [address] [place] [address] Type of Urine collection method Clean Catch Normal [facility] Comment on above: Performed By: #### 4 [id number] #### [facility] [address] [place], [place] [id number] URINALYSISOrdered By: SYSTEM SYSTEM on 04-01-2024 Bacteria Auto Ql (U) 3+ /HPF Invalid Interpretation Code Trace/HPF [facility] UA Auto SS Bilirubin Ql (U) Negative Normal Negativemg/ d L [facility] UA Auto SS Clarity (U) Turbid *ABN* (04/01/24 5:37 PM) Invalid Interpretation Code Clear [facility] UA Auto SS Color (U) Yellow 1 (04/01/24 5:37 PM) Normal Yellow [facility] UA Auto SS Comment on above: Interpretive Data: M icroscopic readings are only performed on those samples that meet specific criteria set forth by [facility]. Epithelial cells.squamous Auto (Urine sed) [#/Area] >10 graded/HPF Invalid Interpretation Code [facility] UA Auto SS Glucose Ql (U) Negative Normal Negativemg/d L [facility] UA Auto SS Hemoglobin Auto test strip (U) [Mass/Vol] Negative Normal Negativemg/d L [facility] UA Auto SS Ketones Auto test strip Ql (U) Negative Normal Negativemg/d L [facility] UA Auto SS Leukocyte esterase Auto test strip Ql (U) Negative Normal NegativeLeu/ uL [facility] UA Auto SS Mucus Auto Ql (U) 1+ graded/LPF Invalid Interpretation Code Negativegrad ed/LPF [facility] UA Auto SS Nitrite Auto test strip Ql (U) Negative Normal Negativemg/d L [facility] UA Auto SS pH (U) 6.0 *NA* (04/01/24 5:37 PM) Invalid Interpretation Code 5.0 - 9.0 [facility] UA Auto SS Protein Ql (U) Trace mg/dL Invalid Interpretation Code Negativemg/d L [facility] UA Auto SS RBC Ql (U) 4-20 graded/HPF Invalid Interpretation Code 0-3graded/HP F [facility] UA Auto SS Specific gravity (U) [Rel density] 1.023 *NA* (04/01/24 5:37 PM) Invalid Interpretation Code 1.005 - 1.030 [facility] UA Auto SS Urobilinogen (U) [Mass/Vol] Negative Normal Negativemg/d L [facility] UA Auto SS WBC Auto (Urine sed) [#/Area] 0-5 graded/HPF Normal 0-5graded/HP F [facility] UA Auto SS URINALYSISOrdered By: Arline Dennis on 04-01-2024 UA Spec Desc Clean Catch (04/01/24 5:37 PM) Normal [facility] UA Auto SS Uric Acidon 04-01-2024 Urate [Mass/Vol] 4.9 mg/dL Normal 2.2-7.4 [facility] Comment on above: Performed By: #### 2 [id number] #### [facility] [address] [place] [address] eGFRon 04-01-2024 eGFR 130 mL/min/1.73 m2 Normal >=59 [facility] Comment on above: Order Comment: Order added by Discern Expert. Performed By: #### 1 [id number] #### [facility] [address] [place] [address] HOMERO w/Reflex if POSon 2023 Nuclear Ab Ql (S) Negative Invalid Interpretation Code Negative [facility] Comment on above: Result Comment: Perf ormed at: [facility] [place] [id number] [place], [place] [id number] PhD Blu Grubbs Performed By: #### 1 [id number] #### [facility] [address] [place] [address] ED Pat Eduon 03-30-2024 ED [facility] ED [facility] Gastroenterology Vitamin B12 Deficiency Vitamin B12 deficiency means that your body does not have enough vitamin B12. The body needs this important vitamin: ? To make red blood cells. ? To make genes (DNA). ? To help the nerves work. If you do not have enough vitamin B12 in your body, you can have health problems, such as not having enough red blood cells in the blood (anemia). What are the causes? ? Not eating enough foods that contain vitamin B12. ? Not being able to take in (absorb) vitamin B12 from the food that you eat. ? Certain diseases. ? A condition in which the body does not make enough of a certain protein. This results in your body not taking in enough vitamin B12. ? Having a surgery in which part of the stomach or small intestine is taken out. ? Taking medicines that make it hard for the body to take in vitamin B12. These include: ? Heartburn medicines. ? Some medicines that are used to treat diabetes. What increases the risk? ? Being an older adult. ? Eating a vegetarian or vegan diet that does not include any foods that come from animals. ? Not eating enough foods that contain vitamin B12 while you are . ? Taking certain medicines. ? Having alcoholism. What are the signs or symptoms? In some cases, there are no symptoms. If the condition leads to too few blood cells or nerve damage, symptoms can occur, such as: ? Feeling weak or tired. ? Not being hungry. ? Losing feeling (numbness) or tingling in your hands and feet. ? Redness and burning of the tongue. ? Feeling sad (depressed). ? Confusion or memory problems. ? Trouble walking. If anemia is very bad, symptoms can include: ? Being short of breath. ? Being dizzy. ? Having a very fast heartbeat. How is this treated? ? Changing the way you eat and drink, such as: ? Eating more foods that contain vitamin B12. ? Drinking little or no alcohol. ? Getting vitamin B12 shots. ? Taking vitamin B12 supplements by mouth (orally). Your doctor will tell you the dose that is best for you. Follow these instructions at home: Eating and drinking ? Eat foods that come from animals and have a lot of vitamin B12 in them. These include: ? Meats and poultry. This includes beef, pork, chicken, turkey, and organ meats, such as liver. ? Seafood, such as clams, rainbow trout, salmon, tuna, and manda. ? Eggs. ? Dairy foods such as milk, yogurt, and cheese. ? Eat breakfast cereals that have vitamin B12 added to them (are fortified). Check the label. The items listed above may not be a complete list of foods and beverages you can eat and drink. Contact a dietitian for more information. Alcohol use ? Do not drink alcohol if: ? Your doctor tells you not to drink. ? You are , may be , or are planning to become . ? If you drink alcohol: ? Limit how much you have to: ? 0?1 drink a day for women. ? 0?2 drinks a day for men. ? Know how much alcohol is in your drink. In the [place] one drink equals one 12 oz bottle of beer (355 mL), one 5 oz glass of wine (148 mL), or one 1? oz glass of hard liquor (44 mL). General instructions ? Get any vitamin B12 shots if told by your doctor. ? Take supplements only as told by your doctor. Follow the directions. ? Keep all follow-up visits. Contact a doctor if: ? Your symptoms come back. ? Your symptoms get worse or do not get better with treatment. Get help right away if: ? You have trouble breathing. ? You have a very fast heartbeat. ? You have chest pain. ? You get dizzy. ? You faint. These symptoms may be an emergency. Get help right away. Call 911. ? Do not wait to see if the symptoms will go away. ? Do not drive yourself to the hospital. Summary ? Vitamin B12 deficiency means that your body is not getting enough of the vitamin. ? In some cases, there are no symptoms of this condition. ? Treatment may include making a change in the way you eat and drink, getting shots, or taking supplements. ? Eat foods that have vitamin B12 in them. This information is not intended to replace advice given to you by your health care provider. Make sure you discuss any questions you have with your health care provider. Document Revised: 03/02/2022 Document Reviewed: 03/02/2022 [employer] Patient Education ? 2023 [employer]. Hematology Iron Deficiency Anemia, Adult Iron deficiency anemia is when you do not have enough red blood cells or hemoglobin in your blood. This happens because you have too little iron in your body. Hemoglobin carries oxygen to parts of the body. Anemia can cause your body to not get enough oxygen. What are the causes? ? Not eating enough foods that have iron in them. ? The body not being able to take in iron well. ? Blood loss. What increases the risk? ? Having menstrual periods. ? Being . What are the signs or symptoms? ? P (more content not included)... Normal [facility] ED Pat Edu ED Pat Edu Iron Deficiency Anemia, Adult Iron deficiency anemia is when you do not have enough red blood cells or hemoglobin in your blood. This happens because you have too little iron in your body. Hemoglobin carries oxygen to parts of the body. Anemia can cause your body to not get enough oxygen. What are the causes? ? Not eating enough foods that have iron in them. ? The body not being able to take in iron well. ? Blood loss. What increases the risk? ? Having menstrual periods. ? Being . What are the signs or symptoms? ? Pale skin, lips, and nails. ? Weakness, dizziness, and getting tired easily. ? Feeling like you cannot breathe well when moving (shortness of breath). ? Cold hands and feet. Mild anemia may not cause any symptoms. How is this treated? This condition is treated by finding out why you do not have enough iron and then getting more iron. It may include: ? Adding foods to your diet that have a lot of iron. ? Taking iron pills (supplements). If you are or , you may need to take extra iron. Your diet often does not provide the amount of iron that you need. ? Getting more vitamin C in your diet. Vitamin C helps your body take in iron. You may need to take iron pills with a glass of orange juice or vitamin C pills. ? Medicines to make heavy menstrual periods size marker. ? Surgery or testing procedures to find what is causing the condition. You may need blood tests to see if treatment is working. If the treatment does not seem to be working, you may need more tests. Follow these instructions at home: Medicines ? Take actd-vbz-ibffyfd and prescription medicines only as told by your doctor. This includes iron pills and vitamins. Taking them as told is important because too much iron can be harmful. ? Take iron pills when your stomach is empty. If you cannot handle this, take them with food. ? Do not drink milk or take antacids at the same time as your iron pills. ? Iron pills may turn your poop (stool)black. ? If you cannot handle taking iron pills by mouth, ask your doctor about getting iron through: ? An IV tube. ? A shot (injection) into a muscle. Eating and drinking ? Talk with your doctor before changing the foods you eat. Your doctor may tell you to eat foods that have a lot of iron, such as: ? Liver. ? Low-fat (lean) beef. ? Breads and cereals that have iron added to them. ? Eggs. ? Dried fruit. ? Dark green, leafy vegetables. ? Eat fresh fruits and vegetables that are high in vitamin C. They help your body use iron. Foods with a lot of vitamin C include: ? Oranges. ? Peppers. ? Tomatoes. ? Mangoes. Managing constipation If you are taking iron pills, they may cause trouble pooping (constipation). To prevent or treat this, you may need to: ? Drink enough fluid to keep your pee (urine) pale yellow. ? Take bukz-oef-fjntlxk or prescription medicines. ? Eat foods that are high in fiber. These include beans, whole grains, and fresh fruits and vegetables. ? Limit foods that are high in fat and sugar. These include fried or sweet foods. General instructions ? Return to your normal activities when your doctor says that it is safe. ? Keep all follow-up visits. Contact a doctor if: ? You feel like you may vomit (nauseous), or you vomit. ? You feel weak. ? You get light-headed when getting up from sitting or lying down. ? You are sweating for no reason. ? You have trouble pooping. ? You have worse breathing with physical activity. ? You have heaviness in your chest. Get help right away if: ? You faint. If this happens, do not drive yourself to the hospital. ? You have a fast heartbeat, or a heartbeat that does not feel regular. Summary ? Iron deficiency anemia happens when you have too little iron in your body. ? This condition is treated by finding out why you do not have enough iron in your body and then getting more iron. ? Take nagj-fcz-ingrzow and prescription medicines only as told by your doctor. ? Eat fresh fruits and vegetables that are high in vitamin C. ? Contact a doctor if you have trouble pooping or feel weak. This information is not intended to replace advice given to you by your health care provider. Make sure you discuss any questions you have with your health care provider. Document Revised: 08/16/2022 Document Reviewed: 08/16/2022 [employer] Patient Education ? 2023 [employer] Gastroenterology Vitamin B12 Deficiency Vitamin B12 deficiency means that your body does not have enough vitamin B12. The body needs this important vitamin: ? To make red blood cells. ? To make genes (DNA). ? To help the nerves work. If you do not have enough vitamin B12 in your body, you can have health problems, such as not having enough red blood cells in the blood (anemia). What are the causes? ? Not eating enough foods that contain vitamin B12. ? Not being able to take in (absorb (more content not included)... Normal [facility]enter[facility] Vitamin B12 Deficiency Vitamin B12 deficiency means that your body does not have enough vitamin B12. The body needs this important vitamin: ? To make red blood cells. ? To make genes (DNA). ? To help the nerves work. If you do not have enough vitamin B12 in your body, you can have health problems, such as not having enough red blood cells in the blood (anemia). What are the causes? ? Not eating enough foods that contain vitamin B12. ? Not being able to take in (absorb) vitamin B12 from the food that you eat. ? Certain diseases. ? A condition in which the body does not make enough of a certain protein. This results in your body not taking in enough vitamin B12. ? Having a surgery in which part of the stomach or small intestine is taken out. ? Taking medicines that make it hard for the body to take in vitamin B12. These include: ? Heartburn medicines. ? Some medicines that are used to treat diabetes. What increases the risk? ? Being an older adult. ? Eating a vegetarian or vegan diet that does not include any foods that come from animals. ? Not eating enough foods that contain vitamin B12 while you are . ? Taking certain medicines. ? Having alcoholism. What are the signs or symptoms? In some cases, there are no symptoms. If the condition leads to too few blood cells or nerve damage, symptoms can occur, such as: ? Feeling weak or tired. ? Not being hungry. ? Losing feeling (numbness) or tingling in your hands and feet. ? Redness and burning of the tongue. ? Feeling sad (depressed). ? Confusion or memory problems. ? Trouble walking. If anemia is very bad, symptoms can include: ? Being short of breath. ? Being dizzy. ? Having a very fast heartbeat. How is this treated? ? Changing the way you eat and drink, such as: ? Eating more foods that contain vitamin B12. ? Drinking little or no alcohol. ? Getting vitamin B12 shots. ? Taking vitamin B12 supplements by mouth (orally). Your doctor will tell you the dose that is best for you. Follow these instructions at home: Eating and drinking ? Eat foods that come from animals and have a lot of vitamin B12 in them. These include: ? Meats and poultry. This includes beef, pork, chicken, turkey, and organ meats, such as liver. ? Seafood, such as clams, rainbow trout, salmon, tuna, and manda. ? Eggs. ? Dairy foods such as milk, yogurt, and cheese. ? Eat breakfast cereals that have vitamin B12 added to them (are fortified). Check the label. The items listed above may not be a complete list of foods and beverages you can eat and drink. Contact a dietitian for more information. Alcohol use ? Do not drink alcohol if: ? Your doctor tells you not to drink. ? You are , may be , or are planning to become . ? If you drink alcohol: ? Limit how much you have to: ? 0?1 drink a day for women. ? 0?2 drinks a day for men. ? Know how much alcohol is in your drink. In the [place] one drink equals one 12 oz bottle of beer (355 mL), one 5 oz glass of wine (148 mL), or one 1? oz glass of hard liquor (44 mL). General instructions ? Get any vitamin B12 shots if told by your doctor. ? Take supplements only as told by your doctor. Follow the directions. ? Keep all follow-up visits. Contact a doctor if: ? Your symptoms come back. ? Your symptoms get worse or do not get better with treatment. Get help right away if: ? You have trouble breathing. ? You have a very fast heartbeat. ? You have chest pain. ? You get dizzy. ? You faint. These symptoms may be an emergency. Get help right away. Call 911. ? Do not wait to see if the symptoms will go away. ? Do not drive yourself to the hospital. Summary ? Vitamin B12 deficiency means that your body is not getting enough of the vitamin. ? In some cases, there are no symptoms of this condition. ? Treatment may include making a change in the way you eat and drink, getting shots, or taking supplements. ? Eat foods that have vitamin B12 in them. This information is not intended to replace advice given to you by your health care provider. Make sure you discuss any questions you have with your health care provider. Document Revised: 03/02/2022 Document Reviewed: 03/02/2022 [employer] Patient Education ? 2023 [employer] Normal [facility] Free K+L Lt Chains,Misa,Son Immunoglobulin light chains.kappa.free (S) [Mass/Vol] 20.7 mg/L High 3.3-19.4 [facility] Comment on above: Performed By: #### 2 [id number] #### [facility] [address] [place] [id number] Immunoglobulin light chains.kappa.free/Imm unoglobulin light chains.lambda.free (S) [Mass ratio] 1.25 Invalid Interpretation Code 0.26-1.65 [facility] Comment on above: Result Comment: Perf ormed at: [facility] [address] [place], [place] [id number] PhD Blu Grubbs Performed By: #### 2 [id number] #### [facility] [address] [place] [address] Immunoglobulin light chains.lambda.free [Mass/Vol] 16.5 mg/L Invalid Interpretation Code 5.7-26.3 [facility] Comment on above: Performed By: #### 2 [id number] #### [facility] [address] [place] [address] MATT and PE, Serumon 03-30-20 24 Albumin [Mass/Vol] 2.9 g/dL Invalid Interpretation Code 2.9-4.4 [facility] Comment on above: Performed By: #### 1 [id number] #### [facility] [address] [place] [address] Albumin/Globulin [Mass ratio] 0.8 {ratio} Invalid Interpretation Code 0.7-1.7 [facility] Comment on above: Performed By: #### 1 [id number] #### [facility] [address] [place] [address] Alpha 1 globulin Elph [Mass/Vol] 0.4 g/dL Invalid Interpretation Code 0.0-0.4 [facility] Comment on above: Performed By: #### 1 [id number] #### [facility] [address] [place] [address] Alpha 2 globulin Elph [Mass/Vol] 0.8 g/dL Invalid Interpretation Code 0.4-1.0 [facility] Comment on above: Performed By: #### 1 [id number] #### [facility] [address] [place] [address] Beta globulin Elph [Mass/Vol] 1.2 g/dL Invalid Interpretation Code 0.7-1.3 [facility] Comment on above: Performed By: #### 1 [id number] #### [facility] [address] [place] [address] Gamma globulin Elph [Mass/Vol] 1.4 g/dL Invalid Interpretation Code 0.4-1.8 [facility] Comment on above: Performed By: #### 1 [id number] #### [facility] [address] [place] [address] Globulin (S) [Mass/Vol] 3.8 g/dL Invalid Interpretation Code 2.2-3.9 [facility] Comment on above: Performed By: #### 1 [id number] #### [facility] [address] [place] [address] IgA [Mass/Vol] mg/dL Low 87-352 [facility] Comment on above: Result Comment: Resu lt confirmed on concentration. Performed By: #### 1 [id number] #### [facility] [address] [place] [address] IgG [Mass/Vol] 1532 mg/dL Invalid Interpretation Code 586-1602 [facility] Comment on above: Performed By: #### 1 [id number] #### [facility] [address] [place] [address] IgM [Mass/Vol] 126 mg/dL Invalid Interpretation Code 26-217 [facility] Comment on above: Performed By: #### 1 [id number] #### [facility] [address] [place] [address] Interpretation IEP [Interp] Comment Invalid Interpretation Code [facility] Comment on above: Result Comment: No m onoclonality detected. Performed By: #### 1 [id number] #### [facility] [address] [place] [address] Laboratory comment Jone (Report) Comment Invalid Interpretation Code [facility] Comment on above: Result Comment: Prot ein electrophoresis scan will follow via computer, mail, or library science professor delivery. Performed at: [address] [id number] PhD Blu Grubbs Performed By: #### 1 [id number] #### [facility] [address] [place] [address] Protein [Mass/Vol] 6.7 g/dL Invalid Interpretation Code 6.0-8.5 [facility] Comment on above: Performed By: #### 1 [id number] #### [facility] [address] [place] [address] Protein.monoclonal Elph [Mass/Vol] Not Observed Invalid Interpretation Code Not Observed [facility] Comment on above: Performed By: #### 1 [id number] #### [facility] [address] [place] [address] IgE, Quanton 03-30-2024 IgE Qn 11 International_Unit/mL Invalid Interpretation Code 6-495 [facility] Comment on above: Order Comment: Added by Discern Expert Result Comment: Perf ormed at: [facility] [address] [id number] MD Chester Warner Performed By: #### 1 [id number] #### [facility] [address] [place] [address] RF Quanton 03-30-2024 Rheumatoid factor Qn 10.8 International_Unit/mL Invalid Interpretation Code <14.0 [facility] Comment on above: Result Comment: Perf ormed at: [facility] [address] [id number] PhD Blu Grubbs Performed By: #### 1 [id number] #### [facility] [address] [place] [address] CBC w/ Auto Diffon 4 Basophils/100 WBC (Bld) 0.2 % Normal 0.0-2.0 [facility] Comment on above: Performed By: #### 2 [id number] #### [facility] [address] [place] [address] Basophils/Leukocytes Auto (Bld) [Pure # fraction] 0.0 E9/L Normal 0.0-0.2 [facility] Comment on above: Performed By: #### 2 [id number] #### [facility] [address] [place] [address] Eosinophils (Bld) [#/Vol] 0.2 E9/L Normal 0.0-0.5 [facility] Comment on above: Performed By: #### 2 [id number] #### [facility] [address] [place] [address] Eosinophils/100 WBC (Bld) 2.3 % Normal 0.0-8.0 [facility] Comment on above: Performed By: #### 2 [id number] #### [facility] [address] [place] [address] Erythrocyte distribution width (RBC) [Ratio] 14.6 % High 10.9-14.2 [facility] Comment on above: Performed By: #### 2 513791 #### [facility] [address] [place] [address] Hematocrit (Bld) [Volume fraction] 28.5 % Low 34.0-46.0 [facility] Comment on above: Performed By: #### 2 373681 #### [facility] [address] [place] [address] Hemoglobin (Bld) [Mass/Vol] 9.9 g/dL Low 12.0-16.0 [facility] Comment on above: Performed By: #### 2 [id number] #### [facility] [address] [place] [address] Lymphocytes (Bld) [#/Vol] 2.1 E9/L Normal 1.0-4.0 [facility] Comment on above: Performed By: #### 2 [id number] #### [facility] [address] [place] [address] Lymphocytes/100 WBC (Bld) 24.9 % Normal 14.0-50.0 [facility] Comment on above: Performed By: #### 2 [id number] #### [facility] [address] [place] [address] MCH (RBC) [Entitic mass] 30.3 pg Normal 27.0-34.0 [facility] Comment on above: Performed By: #### 2 691487 #### [facility] [address] [place] [address] MCHC (RBC) [Mass/Vol] 34.8 g/dL Normal 31.4-36.0 [facility] Comment on above: Performed By: #### 2 768647 #### [facility] [address] [place] [address] MCV (RBC) [Entitic vol] 87.0 fL Normal 80.0-100.0 [facility] Comment on above: Performed By: #### 2 869875 #### [facility] [address] [place] [address] Monocytes (Bld) [#/Vol] 0.4 E9/L Normal 0.2-1.0 [facility] Comment on above: Performed By: #### 2 711811 #### [facility] [address] [place] [address] Neutrophils (Bld) [#/Vol] 5.8 E9/L Normal 2.0-7.5 [facility] Comment on above: Performed By: #### 2 753403 #### [facility] [address] [place] [address] Neutrophils/100 WBC (Bld) 68.1 % Normal 36.0-75.0 [facility] Comment on above: Performed By: #### 2 532346 #### [facility] [address] [place] [address] Platelet 288.0 E9/L Normal 150.0-500.0 [facility] Comment on above: Performed By: #### 2 [id number] #### [facility] [address] [place] [address] Platelet mean volume (Bld) [Entitic vol] 6.6 fL Normal 6.4-10.8 [facility] Comment on above: Performed By: #### 2 [id number] #### [facility] [address] [place] [address] RBC (Bld) [#/Vol] 3.3 E12/L Low 4.3-5.9 [facility] Comment on above: Performed By: #### 2 583440 #### [facility] [address] [place] [address] WBC corrected for nucl RBC Auto (Bld) [#/Vol] 8.6 E9/L Normal 4.0-11.0 [facility] Comment on above: Performed By: #### 2 438989 #### [facility] [address] [place] [address] CHEMISTRYOrdered By: SYSTEM SYSTEM on 2024 Glucose [Mass/Vol] 130 mg/dL Normal 55 - 140 mg/dL [facility] Albumin [Mass/Vol] 3.4 g/dL Normal 3.3 - 5.0 gm/dL [facility] Albumin/Globulin [Mass ratio] 0.9 {ratio} Low 1.1 - 2.2 [facility] ALP [Catalytic activity/Vol] 101 [iU]/d High 21 - 98 Int._Unit/L [facility] ALT No additional P-5'-P [Catalytic activity/Vol] 9 [iU]/d Normal 6 - 46 Int._Unit/L [facility] Anion gap [Moles/Vol] 11 mmol/L Normal 6 - 16 mEq/L R em[facility] Chem AST [Catalytic activity/Vol] 10 [iU]/d Normal 5 - 43 Int._Unit/L [facility] Bilirubin [Mass/Vol] 0.3 mg/dL Normal 0.0 - 1 .1 mg/dL [facility] Calcium [Mass/Vol] 8.7 mg/dL Low 8.9 - 11. 1 mg/dL [facility] Chloride [Moles/Vol] 105 mmol/L Normal 101 - 1 11 mmol/L [facility] CO2 [Moles/Vol] 23 mmol/L Normal 21 - 31 mmol/L [facility] Cobalamin (Vitamin B12) [Mass/Vol] 165 pg/mL Normal 50 - 1500 pg/mL [facility] Creatinine [Mass/Vol] 0.5 mg/dL Normal 0.5 - 1.3 mg/dL [facility] eGFR 123 mL/min/1.73 m2 Normal >=59mL/mi n/1 .73 m2 [facility] Ferritin [Mass/Vol] 22 ng/mL Normal 11 - 307 ng/mL [facility] Globulin (S) [Mass/Vol] 3.8 g/dL Normal 1.4 - 4.0 gm/dL [facility] Glucose [Mass/Vol] 129 mg/dL Normal 55 - 199 mg/dL [facility] Iron [Mass/Vol] 72 ug/dL Normal 35 - 153 mcg/dL [facility] Iron binding capacity [Mass/Vol] 514 ug/dL High 250 - 400 mcg/dL [facility] Iron saturation [Mass fraction] 14 % Low 20 - 50 % [facility] Potassium [Moles/Vol] 3.5 mmol/L Normal 3.5 - 5.3 mmol/L [facility] Protein [Mass/Vol] 7.2 g/dL Normal 6.0 - 7.8 gm/dL [facility] Sodium [Moles/Vol] 135 mmol/L Normal 135 - 145 mmol/L [facility] Transferrin [Mass/Vol] 367 mg/dL Normal 200 - 370 mg/dL [facility] Urea nitrogen [Mass/Vol] 5 mg/dL Normal 5 - 21 mg/dL [facility] Urea nitrogen/Creatinine [Mass ratio] 10 mg/mg Normal 10 - 20 [facility] CMPon 2024 Albumin [Mass/Vol] 3.4 g/dL Normal 3.3-5.0 [facility] Comment on above: Performed By: #### 2 [id number] #### [facility] [address] [place] [address] Albumin/Globulin (S) [Mass conc ratio] 0.9 Low 1.1-2.2 [facility] Comment on above: Performed By: #### 2 083934 #### [facility] [address] [place] [address] ALP [Catalytic activity/Vol] 101 Int._Unit/L High 21-98 [facility] Comment on above: Performed By: #### 2 015053 #### [facility] [address] [place] [address] ALT No additional P-5'-P [Catalytic activity/Vol] 9 Int._Unit/L Normal 6-46 [facility] Comment on above: Performed By: #### 2 060213 #### [facility] [address] [place] [address] AST [Catalytic activity/Vol] 10 Int._Unit/L Normal 5-43 [facility] Comment on above: Performed By: #### 2 537749 #### [facility] [address] [place] [address] Bilirubin [Mass/Vol] 0.3 mg/dL Normal 0.0-1.1 [facility] Comment on above: Performed By: #### 2 925484 #### [facility] [address] [place] [address] Globulin (S) [Mass/Vol] 3.8 g/dL Normal 1.4-4.0 [facility] Comment on above: Performed By: #### 2 479319 #### [facility] [address] [place] [address] Protein [Mass/Vol] 7.2 g/dL Normal 6.0-7.8 [facility] Comment on above: Performed By: #### 2 696846 #### [facility] [address] [place] [address] Anion gap [Moles/Vol] 11 mmol/L Normal 6-16 [facility] Comment on above: Performed By: #### 2 724479 #### [facility] [address] [place] [address] Calcium [Mass/Vol] 8.7 mg/dL Low 8.9-11.1 [facility] Comment on above: Performed By: #### 2 877502 #### [facility] [address] [place] [address] Chloride [Moles/Vol] 105 mmol/L Normal 101-111 [facility] Comment on above: Performed By: #### 2 502400 #### [facility] [address] [place] [address] CO2 [Moles/Vol] 23 mmol/L Normal 21-31 [facility] Comment on above: Performed By: #### 2 439285 #### [facility] [address] [place] [address] Creatinine [Mass/Vol] 0.5 mg/dL Normal 0.5-1.3 [facility] Comment on above: Performed By: #### 2 863311 #### [facility] [address] [place] [address] Glucose [Mass/Vol] 129 mg/dL Normal 55-199 [facility] Comment on above: Performed By: #### 2 426184 #### [facility] [address] [place] [address] Potassium [Moles/Vol] 3.5 mmol/L Normal 3.5-5.3 [facility] Comment on above: Performed By: #### 2 338512 #### [facility] [address] [place] [address] Sodium [Moles/Vol] 135 mmol/L Normal 135-145 [facility] Comment on above: Performed By: #### 2 969458 #### [facility] [address] [place] [address] Urea nitrogen [Mass/Vol] 5 mg/dL Normal 5-21 [facility] Comment on above: Performed By: #### 2 169425 #### [facility] [address] [place] [address] Urea nitrogen/Creatinine [Mass ratio] 10 No Units Normal 10-20 [facility] Comment on above: Performed By: #### 2 996056 #### [facility] [address] [place] [address] [facility] GEST SCR GLU 1 HRon ZZCLINISYNC 130 mg/dL 55 - 140 mg/dL [facility] Original Ordering Provider: DO Neva Pearson CLINISYNC [facility] Ferritinon 2024 Ferritin [Mass/Vol] 22 ng/mL Normal 11-307 [facility] Comment on above: Performed By: #### 2 146150 #### [facility] [address] [place] [address] Gest Scr Glu 1 Hron 03-25-20 24 Glucose [Mass/Vol] 130 mg/dL Normal 55-140 [facility] Comment on above: Performed By: #### 3 [id number] #### [facility] [address] [place] [address] HEMATOLOGYOrdered By: SYSTEM SYSTEM on 2024 Basophils/100 WBC (Bld) 0.2 % Normal 0.0 - 2.0 % [facility] Basophils/Leukocytes Auto (Bld) [Pure # fraction] 0.0 E9/L Normal 0.0 - 0.2 E9/L [facility] Eosinophils (Bld) [#/Vol] 0.2 E9/L Normal 0.0 - 0.5 E9/L [facility] Eosinophils/100 WBC (Bld) 2.3 % Normal 0.0 - 8.0 % [facility] Erythrocyte distribution width (RBC) [Ratio] 14.6 % High 10.9 - 14.2 % [facility] Hematocrit (Bld) [Volume fraction] 28.5 % Low 34.0 - 46.0 % [facility] Hemoglobin (Bld) [Mass/Vol] 9.9 g/dL Low 12.0 - 16.0 gm/dL [facility] Lymphocytes (Bld) [#/Vol] 2.1 E9/L Normal 1.0 - 4.0 E9/L [facility] Lymphocytes/100 WBC (Bld) 24.9 % Normal 14.0 - 50.0 % [facility] MCH (RBC) [Entitic mass] 30.3 pg Normal 27.0 - 34.0 pg [facility] MCHC (RBC) [Mass/Vol] 34.8 g/dL Normal 31.4 - 36.0 gm/dL [facility] MCV (RBC) [Entitic vol] 87.0 fL Normal 80.0 - 100.0 fL [facility] Monocytes (Bld) [#/Vol] 0.4 E9/L Normal 0.2 - 1.0 E9/L [facility] Monocytes/100 WBC (Bld) 4.5 % Normal 4.0 - 14.0 % [facility] Neutrophils (Bld) [#/Vol] 5.8 E9/L Normal 2.0 - 7.5 E9/L [facility] Neutrophils/100 WBC (Bld) 68.1 % Normal 36.0 - 75.0 % [facility] Platelet 288.0 E9/L Normal 150.0 - 500.0 E9/L [facility] Platelet mean volume (Bld) [Entitic vol] 6.6 fL Normal 6.4 - 10.8 fL [facility] RBC (Bld) [#/Vol] 3.3 E12/L Low 4.3 - 5.9 E12/L [facility] WBC corrected for nucl RBC Auto (Bld) [#/Vol] 8.6 E9/L Normal 4.0 - 11.0 E9/L [facility] Ironon 2024 Iron [Mass/Vol] 72 microgram/dL Normal 35-153 [facility] Comment on above: Performed By: #### 2 [id number] #### [facility] [address] [place] [address] Iron Saturationon 2024 Iron binding capacity [Mass/Vol] 514 microgram/dL High 250-400 [facility] Comment on above: Performed By: #### 2 933036 #### [facility] [address] [place] [address] Iron saturation [Mass fraction] 14 % Low 20-50 [facility] Comment on above: Performed By: #### 2 732738 #### [facility] [address] [place] [address] Transferrinon 2024 Transferrin [Mass/Vol] 367 mg/dL Normal 200-370 [facility] Comment on above: Performed By: #### 2 133505 #### [facility] [address] [place] [address] Vit B12on 2024 Cobalamin (Vitamin B12) [Mass/Vol] 165 pg/mL Normal 50-1500 [facility] Comment on above: Performed By: #### 2 966648 #### [facility] [address] [place] [address] eGFRon 2024 eGFR 123 mL/min/1.73 m2 Normal >=59 [facility] Comment on above: Order Comment: Order added by Discern Expert. Performed By: #### 1 [id number] #### [facility] [address] [place] [address] No Panel Informationon 03-17 Glucose, UA Negative Negative - 1999(110) ++++ mg/dL [facility] Interpretation and review of laboratory results Normal [facility] Protein, UA Trace Negative - 1999(20) ++++ mg/dL [facility] Holter Monitoron 02-13-2024 Holter Monitor Holter Monitor HOLTER MONITOR ENROLLMENT PERIOD: 02/05/2024 through 02/07/2024 INDICATION: Palpitations. FINDINGS: Over the monitoring time the underlying rhythm was sinus rhythm and sinus tachycardia with minimum heart rate of 75 beats per minute, average heart rate 102 beats per minute, maximum heart rate 114 beats per minute. There were no symptoms. There were no secondary arrhythmias. There was a burden of premature supraventricular ectopy of 0.4% including couplets, trigeminy, quadrigeminy, one supraventricular ectopic run lasting 3 beats with heart rate 135 beats per minute. There was no ventricular ectopy. CONCLUSIONS: Underlying sinus rhythm with low burden of supraventricular ectopy as above, likely asymptomatic. READ BY: Arturo Mon MD ca Dictated: 02/12/2024 [id number] Transcribed: 02/12/2024 Normal [facility] Comment on above: Result Comment: Elec tronically Signed By: Yaa BAI, Arturo Mcdaniel\.br\Date and Time Signed: 02/13/24 10:12 EDT Comprehensive metabolic 2000 panelon 02-06-2024 Albumin [Mass/Vol] 3.8 g/dL Low 3.9-4.9 [facility] Comment on above: Order Comment: Speci men Type: BLOOD SPECIMEN Ordering Facility: [facility] Address: [address] [place] [address] Performed By: #### 2 4323-8 #### [facility] CLIA [id number] [address] [place] [address] ALP [Catalytic activity/Vol] 101 U/L Normal 34-123 [facility] Comment on above: Order Comment: Speci men Type: BLOOD SPECIMEN Ordering Facility: [facility] Address: [address] [place] [address] Performed By: #### 2 4323-8 #### [facility] CLIA [id number] [address] [place] [address] ALT [Catalytic activity/Vol] 8 U/L Normal 7-38 [facility] Comment on above: Order Comment: Speci men Type: BLOOD SPECIMEN Ordering Facility: [facility] Address: [address] [id number] Performed By: #### 2 4323-8 #### [facility] CLIA [id number] [address] [place] [address] Anion gap [Moles/Vol] 10 mmol/L Normal 8-15 [facility] Comment on above: Order Comment: Speci men Type: BLOOD SPECIMEN Ordering Facility: [facility] Address: [address] [place], [place] [address] Performed By: #### 2 4323-8 #### [facility] CLIA [id number] [address] [place] [address] AST [Catalytic activity/Vol] 8 U/L Low 13-35 [facility] Comment on above: Order Comment: Speci men Type: BLOOD SPECIMEN Ordering Facility: [facility] Address: [address] [id number] Performed By: #### 2 4323-8 #### [facility] CLIA [id number] [address] [place] [address] Bilirubin [Mass/Vol] mg/dL Low 0.2-1.3 [facility] Comment on above: Order Comment: Speci men Type: BLOOD SPECIMEN Ordering Facility: [facility] Address: [address] [place] [address] Performed By: #### 2 4323-8 #### [facility] CLIA [id number] [address] [place] [address] Calcium [Mass/Vol] 10.4 mg/dL High 8.5-10.2 [facility] Comment on above: Order Comment: Speci men Type: BLOOD SPECIMEN Ordering Facility: [facility] Address: [address] [place] [address] Performed By: #### 2 4323-8 #### [facility] CLIA [id number] [address] [place] [address] Chloride [Moles/Vol] 102 mmol/L Normal 98-107 [facility] Comment on above: Order Comment: Speci men Type: BLOOD SPECIMEN Ordering Facility: [facility] Address: [address] [place] [address] Performed By: #### 2 4323-8 #### [facility] CLIA [id number] [address] [place] [address] CO2 [Moles/Vol] 23 mmol/L Normal 22-30 [facility] Comment on above: Order Comment: Speci men Type: BLOOD SPECIMEN Ordering Facility: [facility] Address: [address] [place] [address] Performed By: #### 2 4323-8 #### [facility] CLIA [id number] [address] [place] [address] Creatinine [Mass/Vol] 0.66 mg/dL Normal 0.58-0.96 [facility] Comment on above: Order Comment: Speci men Type: BLOOD SPECIMEN Ordering Facility: [facility] Address: [address] [place] [address] Performed By: #### 2 4323-8 #### [facility] CLIA [id number] [address] [place] [address] Creatinine and Glomerular filtration rate.predicted panel (S/P/Bld) 116 mL/min/1.73m??? Normal >=60 [facility] Comment on above: Order Comment: Speci men Type: BLOOD SPECIMEN Ordering Facility: [facility] Address: [address] [place] [address], [place] [address] Result Comment: Corine mated Glomerular Filtration Rate (eGFR) is calculated using the 2020 CKD-EPI creatinine equation. This equation utilizes serum creatinine, sex, and age as parameters. The creatinine assay has traceable calibration to isotope dilution-mass spectrometry. Refer to KDIGO guidelines for clinical interpretation. In patients with unstable renal function, e.g. those with acute kidney injury, the eGFR may not accurately reflect actual GFR. Performed By: #### 2 4323-8 #### [facility] CLIA [id number] [address] [place] [address] Glucose [Mass/Vol] 93 mg/dL Normal 74-99 [facility] Comment on above: Order Comment: Speci men Type: BLOOD SPECIMEN Ordering Facility: [facility] Address: [address] [id number] Result Comment: The [place] [employer] (ADA) provides guidance for cutoff values for fasting glucose and random glucose. The ADA defines fasting as no caloric intake for at least 8 hours. Fasting plasma glucose results between 100 to 125 mg/dL indicate increased risk for diabetes (prediabetes). Fasting plasma glucose results greater than or equal to 126 mg/dL meet the criteria for diagnosis of diabetes. In the absence of unequivocal hyperglycemia, results should be confirmed by repeat testing. In a patient with classic symptoms of hyperglycemia or hyperglycemic crisis, random plasma glucose results greater than or equal to 200 mg/dL meet the criteria for diagnosis of diabetes. Reference: Standards of Medical Care in Diabetes 2016, [place] [employer]. Diabetes Care. 2016.39(Suppl 1). Performed By: #### 2 4323-8 #### [facility] CLIA [id number] [address] [place] [address] Potassium [Moles/Vol] 3.9 mmol/L Normal 3.7-5.1 [facility] Comment on above: Order Comment: Bertram wolfe Type: BLOOD SPECIMEN Ordering Facility: [facility] Address: [address] [place] [address] Performed By: #### 2 4323-8 #### [facility] CLIA [id number] [address] [place] [address] Protein [Mass/Vol] 7.6 g/dL Normal 6.3-8.0 [facility] [facility] Comment on above: Order Comment: Speci men Type: BLOOD SPECIMEN Ordering Facility: [facility] Address: [address] [place], [place] [address] Performed By: #### 2 4323-8 #### [facility] CLIA [id number] [address] [place] [address] Sodium [Moles/Vol] 135 mmol/L Low 136-144 [facility] Comment on above: Order Comment: Speci men Type: BLOOD SPECIMEN Ordering Facility: [facility] Address: [address] [place] [address] Performed By: #### 2 4323-8 #### [facility] CLIA [id number] [address] [place] [address] Urea nitrogen [Mass/Vol] 7 mg/dL Normal 7-21 [facility] Comment on above: Order Comment: Speci men Type: BLOOD SPECIMEN Ordering Facility: [facility] Address: [address] [place] [address] Performed By: #### 2 4323-8 #### [facility] CLIA [id number] [address] [place] [address] DHEA-S BLDon 02-06-2024 DHEA-S [Mass/Vol] 76.9 ug/dL Normal 60.9-337.0 [facility] Comment on above: Order Comment: Speci men Type: BLOOD SPECIMENOrdering Facility: [facility] Address: [address] [place] [address] Result Comment: Refe rence ranges are age and gender specific. For additional information, reference range tables can be found in the laboratory test directory. The normal values are based on the following source: Dehydroepiandrosterone sulfate (DHEA S) [package insert V 17.0 Icelandic]. [facility], [place], [place]: February 2013. Performed By: #### 3 051-0, 3016-3, DHEAS, 3024-7 ####[facility] [id number] [place] [address] [place] HbA1c (Bld)on 02-06-2024 Average glucose Estimated from glycated hemoglobin (Bld) [Mass/Vol] 88 mg/dL Normal [facility] Comment on above: Order Comment: Bertram wolfe Type: BLOOD SPECIMENOrdering Facility: [facility] Address: [address] [place] [address] Result Comment: eAG: (Estimated average glucose) is a calculated value from HgbA1c and is employee representative of the average blood glucose level in the last 2-3 month period. Performed By: #### 5 5454-3 ####[facility] [id number] [place] [address] [place] [facility] HbA1c (Bld) [Mass fraction] 4.7 % Normal 4.3-5.6 [facility] Comment on above: Order Comment: Bertram wolfe Type: BLOOD SPECIMENOrdering Facility: [facility] Address: [address] [place] [address] Result Comment: Amer ican Diabetes Association guidelines indicate that patients with HgbA1c in the range 5.7-6.4% are at increased risk for development of diabetes, and intervention by lifestyle modification may be beneficial. HgbA1c greater or equal to 6.5% is considered diagnostic of diabetes. Performed By: #### 5 5454-3 ####[facility] LABIA [id number] [place] [address] [place] T3Free SerPl-mCncon 02-06-20 24 Free T3 [Mass/Vol] 3.2 pg/mL Normal 2.3-4.1 [facility] Comment on above: Order Comment: Bertram men Type: BLOOD SPECIMENOrdering Facility: [facility] Address: [address] [place] [address] Performed By: #### 3 051-0, 3016-3, DHEAS, 3024-7 ####[facility] LABIA [id number] [address] [id number] [address] [place] T4 Free SerPl-mCncon 024 Free T4 [Mass/Vol] 1.1 ng/dL Normal 0.9-1.7 [facility] Comment on above: Order Comment: Speci men Type: BLOOD SPECIMENOrdering Facility: [facility] Address: [address] [place] [address] Performed By: #### 3 051-0, 3016-3, DHEAS, 3024-01 ####[facility] [id number] [place] [address] [place] TSH SerPl-aCncon 02-06-2024 TSH Qn 3.710 m[IU]/L Normal 0.270-4.200 [facility] Comment on above: Order Comment: Speci men Type: BLOOD SPECIMENOrdering Facility: [facility] Address: [address] [place] [address] Result Comment: If t he patient is , TSH reference range varies by gestational period: First Trimester (weeks 9-12): 0.180-2.990 mIU/L Second Trimester: 0.110-3.980 mIU/L Third Trimester: 0.480-4.710 mIU/L Charanjit Zamora et al. A Practical Approach for the Verifications and Determination of Site- and Trimester-Specific Reference Intervals for Thyroid Function tests in . Thyroid, 2019:29:3:412-420. Mert Garcia, et al. 2017 Guidelines of the [place] Thyroid Association for the Diagnosis and Management of Thyroid Disease during and the . Thyroid, 2017:27:3:315-389. Performed By: #### 3 051-0, 3016-3, DHEAS, 3024-01 ####[facility] LABCLIA [id number] [place] [id number] [place] Testost SerPl-mCncon 024 Testosterone [Mass/Vol] 53 ng/dL High <40 [facility] Comment on above: Order Comment: Speci men Type: BLOOD SPECIMEN Ordering Facility[facility] Address: [address] [place] [address] Performed By: #### 2 986-8 #### [facility] CLIA [id number] [address] [facility] [place] [id number] [place] [facility] CHEMISTRYOrdered By: Bing Short on 01-21-2024 Hrs Breonna 24 1 Invalid Interpretation Code [facility] Chem S U24 ProteinOrdered By: SYSTE M SYSTEM on 01-21-2024 U24 Total Protein 104 mg/24hr Normal 28-141 [facility] Comment on above: Performed By: #### 1 [id number] #### [facility] [address] [place] [address] Ur Total Protein 10.4 mg/dL Invalid Interpretation Code [facility] Comment on above: Performed By: #### 1 [id number] #### [facility] [address] [place] [address] U24 Total Volon 01-21-2024 Hrs Breonna 24 Invalid Interpretation Code [facility] Comment on above: Order Comment: Order added by Discern Expert Performed By: #### 2 [id number] #### [facility] [address] [place] [address] U24 Total VolOrdered By: Nolan Short on 01-21-2024 Total Volume 1000 mL Invalid Interpretation Code [facility] Chem S Comment on above: Order Comment: Order added by Discern Expert Performed By: #### 2 [id number] #### [facility] [address] [place] [address] CBC w/Indiceson 01-20-2024 Erythrocyte distribution width (RBC) [Ratio] 13.8 % Normal 10.9-14.2 [facility] Comment on above: Performed By: #### 2 [id number] #### [facility] [address] [place] [address] Hematocrit (Bld) [Volume fraction] 30.2 % Low 34.0-46.0 [facility] Comment on above: Performed By: #### 2 869403 #### [facility] [address] [place] [address] Hemoglobin (Bld) [Mass/Vol] 10.5 g/dL Low 12.0-16.0 [facility] Comment on above: Performed By: #### 2 844017 #### [facility] [address] [place] [address] MCH (RBC) [Entitic mass] 30.6 pg Normal 27.0-34.0 [facility] Comment on above: Performed By: #### 2 [id number] #### [facility] [address] [place] [address] MCHC (RBC) [Mass/Vol] 34.9 g/dL Normal 31.4-36.0 [facility] Comment on above: Performed By: #### 2 [id number] #### [facility] [address] [place] [address] MCV (RBC) [Entitic vol] 87.7 fL Normal 80.0-100.0 [facility] Comment on above: Performed By: #### 2 993316 #### [facility] [address] [place] [address] Platelet 362.0 E9/L Normal 150.0-500.0 [facility] Comment on above: Performed By: #### 2 [id number] #### [facility] [address] [place] [address] Platelet mean volume (Bld) [Entitic vol] 6.9 fL Normal 6.4-10.8 [facility] Comment on above: Performed By: #### 2 [id number] #### [facility] [address] [place] [address] RBC (Bld) [#/Vol] 3.4 E12/L Low 4.3-5.9 [facility] Comment on above: Performed By: #### 2 774638 #### [facility] [address] [place] [address] RBC size Nom (Bld) NORMAL Invalid Interpretation Code [facility] Comment on above: Performed By: #### 2 084947 #### [facility] [address] [place] [address] WBC corrected for nucl RBC Auto (Bld) [#/Vol] 10.4 E9/L Normal 4.0-11.0 [facility] Comment on above: Performed By: #### 2 [id number] #### [facility] [address] [place] [address] CHEMISTRYOrdered By: SYSTEM SYSTEM on 01-20-2024 Albumin [Mass/Vol] 3.5 g/dL Normal 3.3 - 5.0 gm/dL [facility] Albumin/Globulin [Mass ratio] 1.1 {ratio} Normal 1.1 - 2.2 [facility] ALP [Catalytic activity/Vol] 79 [iU]/d Normal 21 - 98 Int._Unit/L [facility] ALT No additional P-5'-P [Catalytic activity/Vol] 9 [iU]/d Normal 6 - 46 Int._Unit/L [facility] Anion gap [Moles/Vol] 12 mmol/L Normal 6 - 16 mEq/L R emisol Chem AST [Catalytic activity/Vol] 11 [iU]/d Normal 5 - 43 Int._Unit/L [facility] Bilirubin [Mass/Vol] 0.3 mg/dL Normal 0.0 - 1 .1 mg/dL [facility] Calcium [Mass/Vol] 9.0 mg/dL Normal 8.9 - 11. 1 mg/dL [facility] Chloride [Moles/Vol] 105 mmol/L Normal 101 - 1 11 mmol/L [facility] CO2 [Moles/Vol] 24 mmol/L Normal 21 - 31 mmol/L [facility] Creatinine [Mass/Vol] 0.6 mg/dL Normal 0.5 - 1.3 mg/dL [facility] eGFR 118 mL/min/1.73 m2 Normal >=59mL/mi n/1 .73 m2 [facility] Globulin (S) [Mass/Vol] 3.2 g/dL Normal 1.4 - 4.0 gm/dL [facility] Glucose [Mass/Vol] 92 mg/dL Normal 55 - 199 mg/dL [facility] LDH 139 [iU]/d Normal 93 - 218 Int._Unit/L [facility] Potassium [Moles/Vol] 3.6 mmol/L Normal 3.5 - 5.3 mmol/L [facility] Protein [Mass/Vol] 6.7 g/dL Normal 6.0 - 7.8 gm/dL [facility] Sodium [Moles/Vol] 137 mmol/L Normal 135 - 145 mmol/L [facility] Urate (U) [Mass/Vol] 5.3 mg/dL Normal 2.2 - 7 .4 mg/dL [facility] Urea nitrogen [Mass/Vol] 4 mg/dL Low 5 - 21 mg/dL [facility] Urea nitrogen/Creatinine [Mass ratio] 7 mg/mg Low 10 - 20 [facility] CMPon 01-20-2024 Albumin [Mass/Vol] 3.5 g/dL Normal 3.3-5.0 [facility] Comment on above: Performed By: #### 2 [id number] #### [facility] [address] [place] [address] Albumin/Globulin (S) [Mass conc ratio] 1.1 Normal 1.1-2.2 [facility] Comment on above: Performed By: #### 2 [id number] #### [facility] [address] [place] [address] ALP [Catalytic activity/Vol] 79 Int._Unit/L Normal 21-98 [facility] Comment on above: Performed By: #### 2 [id number] #### [facility] [address] [place] [address] ALT No additional P-5'-P [Catalytic activity/Vol] 9 Int._Unit/L Normal 6-46 [facility] Comment on above: Performed By: #### 2 061851 #### [facility] [address] [place] [address] Anion gap [Moles/Vol] 12 mmol/L Normal 6-16 [facility] Comment on above: Performed By: #### 2 108006 #### [facility] [address] [place] [address] AST [Catalytic activity/Vol] 11 Int._Unit/L Normal 5-43 [facility] Comment on above: Performed By: #### 2 201814 #### [facility] [address] [place] [address] Bilirubin [Mass/Vol] 0.3 mg/dL Normal 0.0-1.1 [facility] Comment on above: Performed By: #### 2 282478 #### [facility] [address] [place] [address] Calcium [Mass/Vol] 9.0 mg/dL Normal 8.9-11.1 [facility] Comment on above: Performed By: #### 2 213076 #### [facility] [address] [place] [address] Chloride [Moles/Vol] 105 mmol/L Normal 101-111 [facility] Comment on above: Performed By: #### 2 341133 #### [facility] [address] [place] [address] CO2 [Moles/Vol] 24 mmol/L Normal 21-31 [facility] Comment on above: Performed By: #### 2 [id number] #### [facility] [address] [place] [address] Creatinine [Mass/Vol] 0.6 mg/dL Normal 0.5-1.3 [facility] Comment on above: Performed By: #### 2 310904 #### [facility] [address] [place] [address] Globulin (S) [Mass/Vol] 3.2 g/dL Normal 1.4-4.0 [facility] Comment on above: Performed By: #### 2 [id number] #### [facility] [address] [place] [address] Glucose [Mass/Vol] 92 mg/dL Normal 55-199 [facility] Comment on above: Performed By: #### 2 159611 #### [facility] [address] [place] [address] Potassium [Moles/Vol] 3.6 mmol/L Normal 3.5-5.3 [facility] Comment on above: Performed By: #### 2 412936 #### [facility] [address] [place] [address] Protein [Mass/Vol] 6.7 g/dL Normal 6.0-7.8 [facility] Comment on above: Performed By: #### 2 613503 #### [facility] [address] [place] [address] Sodium [Moles/Vol] 137 mmol/L Normal 135-145 [facility] Comment on above: Performed By: #### 2 [id number] #### [facility] [address] [place] [address] Urea nitrogen [Mass/Vol] 4 mg/dL Low 5-21 [facility] Comment on above: Performed By: #### 2 [id number] #### [facility] [address] [place] [address] Urea nitrogen/Creatinine [Mass ratio] 7 No Units Low 10-20 [facility] Comment on above: Performed By: #### 2 [id number] #### [facility] [address] [place] [address] HEMATOLOGYOrdered By: SYSTEM SYSTEM on 01-20-2024 Erythrocyte distribution width (RBC) [Ratio] 13.8 % Normal 10.9 - 14.2 % [facility] Hematocrit (Bld) [Volume fraction] 30.2 % Low 34.0 - 46.0 % [facility] Hemoglobin (Bld) [Mass/Vol] 10.5 g/dL Low 12.0 - 16.0 gm/dL [facility] MCH (RBC) [Entitic mass] 30.6 pg Normal 27.0 - 34.0 pg [facility] MCHC (RBC) [Mass/Vol] 34.9 g/dL Normal 31.4 - 36.0 gm/dL [facility] MCV (RBC) [Entitic vol] 87.7 fL Normal 80.0 - 100.0 fL [facility] Platelet 362.0 E9/L Normal 150.0 - 500.0 E9/L [facility] Platelet mean volume (Bld) [Entitic vol] 6.9 fL Normal 6.4 - 10.8 fL [facility] RBC (Bld) [#/Vol] 3.4 E12/L Low 4.3 - 5.9 E12/L [facility] RBC size Nom (Bld) NORMAL *NA* (01/20/24 2:02 PM) Invalid Interpretation Code [facility] WBC corrected for nucl RBC Auto (Bld) [#/Vol] 10.4 E9/L Normal 4.0 - 11.0 E9/L [facility] LDHon 01-20-2024 LDH 139 Int._Unit/L Normal 93-218 [facility] Comment on above: Performed By: #### 2 [id number] #### [facility] [address] [place] [address] Uric Acidon 01-20-2024 Urate (U) [Mass/Vol] 5.3 mg/dL Normal 2.2-7.4 [facility] Comment on above: Performed By: #### 2 166295 #### [facility] [address] [place] [address] eGFRon 01-20-2024 eGFR 118 mL/min/1.73 m2 Normal >=59 [facility] Comment on above: Order Comment: Order added by Discern Expert. Performed By: #### 1 [id number] #### [facility] [address] [place] [address] Consent for Treatmenton 12-21 Consent for Treatment [id number] Normal [facility] Coding Summary.on 01-13-2024 Coding Summary. ODAOAagw14COm2oNq+PG hlYWQ +PX3PRXJxP87zkOPogP4nO8AJ TElOSywgQVBQTElOSyIgbmFtZ W7fhKAsZJAp IC8+JI0tHDRaZnaneHWvo4I3d TD1D61aas9vGUvntDS6UAXbLt Vbacqro5kolNd8GTvgHratNaO t TEEqaL69FVO0wF40Yn22zUNdk PFrc7tsoPk5NwZrTXFjZCU8rM xtKLsyk5UmXOCoR97hoDCjf9Y 6 XWYdpOgaoBGjXsOzaMB9xD5yC Xlkzexax3qpltsmNjy7nz06uQ Tds5E0aKZ7T5CemxA0KHPacVR g YtysxZWYdU9qlcgot4yznuevH dZkLCMjJVh7KXm7YDVlrFrlZg EeDC09SUN2SDYvopYbQ0RqGOW s gYgoEzK9w1N4Av2LE5YSKrfxH 1VNTUFSWTwvdGQ+XH61ne88D5 SrKsqaJqf7NBJwPEB6jFC0kC3 n CXVxCZezn7Y0xLG3J1PevcOin k5iz4aiLVOdHWphK73epPJlt4 Q8VRYzuWT6AIIcfQyeBaJkgL2 3 Oyc+FDKilEtcq3ReOrqve2ang 1uocNm8WfhmSNPalnJgyOxzTU A3f1OaGb0fISUclBR5vHI4iG4 i SxYqJyL1TDnpD102VlZldEViN caoB64uQ1ThdLZ+MDAqAgg4MG XmdAckKE6xE9AnWRIdjjjplYQ m aUpdRV0hFAAjbgdsBRMecU2aC QKjK6o4XzEfWzM7AVlcJ5GuWS UgvuhuQs38lD3qNxDjZzT8KVa u P6PslaI5IGMreGFgYGdjZGZ8Z 54ie5R2QRDxVKAyRUW7dEV5jI 1hbGlnbjogbGVmdDsgdmVydGl j KIhnDIamH001GAXfqPfaAqCnM GluZyBEYXRlOiAgMDYvMjQvMj AyNDwvdGQ+OJEoOXC5aLfrOYH n cLNnCItmZg2etAtcuBbqUN1mB OQsfakeHSXufR3cKEOipTFnvB byPH3xRQObozuew205BcIrWIS 0 SFSmsDNoT6IrgR4fKtDnEFZeO CYlH5FigDKzZIaaS678XKstCb R6JLLfxgBdK3XkAIAeqLotKhU 0 v1P3Iv8Wa6PaiaqsS0FehJXpB sErArfbZTr9X3AgSlezfEE+PC 89JPAwET38SEl2FOC3cQvaPHy i WVBuZ0OnzW6tGcVwRDQeTSDbK yc+PHRhYmxlIHdpZHRoPScxMD RpWsNagHfwSM3aCj7pACHeFBP v sHbrlNOxDpXoz2qfAFIfIRfeN V4ahEifG0DebJF8QRSwv7h9Qn 94B72fU1VqmDB+PCEioDA9fDT 0 kC5hBkApXkF9GUyoQ640JsRna MZbCbans4str4hygHj9OpE2LH GztlAekTtiMBM0e1DtHh08W33 s IHdpZHRoPSIxNSUiIHZhbGlnb z2tgE2vEz8+SCRdbGV7bFX7mG 2lLbUdHyZ0TQezM073LkChdGZ v Hjnxg5tql3pigTt9LiZkAXKdf oBsqCysUIP3a2MkIe31C1LhbF zne9JrBaw2mi89jWHba1C7dDG 9 B9PiZFOmbhypqVJkvYnxPC9dR BMijezqXXLtoI5vTSPvW4p3Ok KzXdS1JWxsZ0FnusC9HBJlkWC g PHIzhBUIyE3gfnpon8xxjayzI lXiLBSyGSz1TGf8VJTatYrhBa RhVDS6JnM5VZL5lFHuhU2usUr n glloxP4gBkg+LZJ6iRNeaBATE K9zHpajtFM+BMNyAKM3eFnmJJ ipRNSgiO0qHDZmI5f7KwIgIbM 1 GGvuG4VorrL1EKYbwMFtZVVgu TLRgT9gnhndv8bzznnxDhJkDU WvZBl8SKq3KAGreWuzIeUcSOC 0 YdX0TPV7uLNldD3pnPhxxwhbx G9wOyc+AwqvkOsbEQL7BBb8M3 BjNff9QIGieZbcVT1xnCEzKPr u Ri2sqBptgPagPH0rHWPgygmmg 332ZmIql1ysCYIazCRnTKxpGQ W8H19ff6S0CBHhNSZrNBI4iZS 4 oW4gtMtcygrfsEGjuXohvnSfh WdbYRonCIarV513TTWluZmzZk RsXPx0T2EwDdy1JIWxhBvnLO3 n kTSvBIwjTl1cbZhdfMadUG0uW KVgaoste115NmOal8neCMTlbO JaEChxFEJ4W97wl4Q0VNHnOIO w KWN1jLM9mP7ieNenumaneWWzz OpfjiKlsYzcHCegWQevW770IC RirOtpCgPkqEw4L3PcSua3HOD z oBjrNX4rvIVzUVxdWx5ebDowr QolSI9rDLPjcjkor656FcTqv4 nnHJXcvQNcVEjlYJI7Y13cx0L 6 PGSeLJHfXKU5pTJ9hN7bqJbcu jogbGVmdDsgdmVydGljYWwtYW beJ297PCIbqDxgXhDeeDooiwS g GYkfNNh5B1OaCgpzeUP+PC90Y FVzEH85yZAdzNXfq2pqvIi2Xf BxRWReMGG6kWzbFAhhy2ByUTQ t R13qvUSmx0P1BTPalZfctWXzO fBwuNQ0kH6cNRhxdzxom4zmbn jbQuizc9unbj56pQ17V04qCZo p PBIuSBYhTWJzDMOndNsfee6sy G9wIi8+OHZppIG9yTI1sB9mPN KuMiA8ZDxeZ137DuGjfDDrDrj j m8vax6plaPx1YzT0ADKchhTvo QbqBAR3i4DcKo22Z87dUVddZQ UdEUPeFGWlVLClpLunpf4txP4 w Ii8+VQQvhRG0fSG4uW8yOeMyY xZ0DJclY126DyWagPQyEfrkH3 1vI2KepVM+STNcFkv6DJQqjVg s QK5coCPlNMvbJo2bOYG3XtTnW tLzCLxdI3DeIBHzarjfrnavdJ Q3TCOoCQQwfF62Se0meViuBOG w pLTFyS6pgpwak3zvqvwwAdVqM UIvXMf9SRt4IYNiiHwnFsLuOI C0BqX7LYA6yQDkyB5yuZrqfjb g qJ9mX2ByINRmdrisAh53iQ8mO gFqZqC2VDjxMgw+TUlMTFMsIE WOVBsMBHXKRB16KE45bTUqc8M 5 jQN5S8WbKAWzggliyqvcgFN0J ZRnWQImgK24gHTcBDzpMb6ps3 Z8l563AEIrDRYxwO25Ff0mgEv g IXNdhWCNtP4dwyboo3jlkmgpF rCuYYBvUAx4NQu6LYYwpZhxSw QsONU1RgD8FIA2vVBqbZ2pyIh n vzlwxC5mLyb+YSfwBCPrZVb5L jwvdGQ+XPKaXZF8ePloWYezOG MeiR9vXVFqL2o1TzBbFjG6ZAx u N9UaLTRgsfhcRc06zP6bQgUiS rF8GSzrR5UtjkO4KTKoiJJaKL vqWTY0E58dw9J3JDUlWDNaSPR 7 vDE5rA0stGmsedeeyIEgsHgql tPtqWdyMBfwSXyzU773PVOddJ mbKpU1ZFrrRSFoPQ22IN47jNU g q9T8fOZ8W7UwFYKyvolhnkpmz YK8FHWlGWLupF79oDIzYGzaMm 9zz0N2d220EBBnJTAitD83Nq3 u gVoxWSWfzTFXzR0rttfkg4jey uqxXuEtQYMlWFj5OZw2BNMlbM saGhQmPFS3IbL7FZH9gUVneM3 h aHemfuljhU5vBcv+RmVtYWxlP G14YW49xYFbk4O2xAF0W6DeHE WpasmuzixauKK1SANkJJYctF3 7 mNFtBBpiOg0ay7A4i839NEIuP WRtsQ11Xl9iaIftMBPxwYKPqP 3ckacgu0auxemkNuVnTXGyPAt 0 TEe6JPBoqBriEsWkZZO9JyS5R TV8sANdxQ6asQuqoqamcP5qYm c+P2N9mCY4pWCmrHvktYK+PC9 0 za14R2XzBjbeThk6QSDaJDO2q XP0dS0pUBXbQNqql4X4uTB1T0 OaexDpej0ak9wcFVKwNPexT94 s gPPby9C8URDhbSV3LVViyUowH uIeqK35Vfa+IUHzsReki4IsRc oiz6mux1qxvOa5GsKxIMYyerC s xCxhBZM1a8DtAa18M60sCHruF WRtVILlSEPwRNBhgNnlpv1zzS 9wIi8+LKRjaMF7aQL6sM7uFpN l PzL4WPkiG152TcNfqXVrRusfr 3ymk2slkPp0FbNmVAYttcPgmV llUOK4v6XqFo97U6KnxJtvy2R w Pzp0tn96nENsd0U7kFK5P5TlM RWbwiwqfYBhuUdbOR6hKUKohy isREOtmJ1eKRMjA9s3XlCgYsO 1 QIvrO1ZttkQ2JWHchJZpMQPgz PSSxG0wfpakq3crfgstCaYnYN BnSId3NBo8FNVssUhpQcChCPZ 0 ZrF3WAK4aHOdqT7qeIzymqdry G9wOyc+YXw8b1kqkRZxVD0geE J8YN15SH29vKWeg5K0fWM9N4V h TZDvjwmhkptieEK1ZMAsTTAkv I25Bn4kmUcwEg0jRNTaOMB3FY CjcQYhP2DacN6gTpEqDZHoHEA w P2ClfPSdHJqeF317NJkcXbS9D CEpvnHrS8SxYZRrzFgaTyQ2r7 Y7Yi1PCL35QP08EK96bZLnh2X 5 uZD0S0DtKBGjaweovtmqpCO4P CLlKSZgzV21Sp6blNuuEg5dVT PxZIJ1YWChjHZqG5UlhA7lItP j SHQwAATxI5AwxPPkLYtjR865W KzqQyF3PUJktnBtJ9TbYXGiqI uaNlL1p1J5Il2KNb21DW74RU4 8 xKZid8A8oPG5Z1CuNPPkzkynz utzwRL6BTOuZQUnxQ25Jg4ciI ndEn9bQSOcDIC1JBYwcIBxA8T v uJ2fXbJuSNNfZTJwL8OlkNHnG ItcG231EWrnCdC6GKGxqpLvL9 ZmOFWpkSxfGtZ9d7O6Ig0RQNi l egr0E2GiXbqgzUH+HE78ZBXyL H77zDDmuYDxv5xyaWg9LeJfEL LdLDF8aZxwUZvhg5VePAOvX61 s jAWky0G0AOGmd (more content not included)... Normal [facility] Consent for Treatmenton 12-20 Consent for Treatment [id number] Normal [facility] Heart and Vascular Office/Cl inic Noteon 01-01-2024 Heart and Vascular Office/Clinic Note Chief Complaint herer to establish care History of Present Illness The patient is a 38-year-old female who is 15 weeks . Her past medical history significant for hypothyroidism. She presents for cardiac evaluation due to apparently tachycardia. She has had issues with tachycardia during her prior pregnancies, apparently, she was seen by a provider from [facility] and was put on propranolol. Reports no syncope, presyncope, chest pain or shortness of breath. Review of Systems ROS - Provider Constitutional: no fever, no chills, no fatigue Skin:no rash, no lesions ENMT: no ear pain, no sore throat, no congestion. Respiratory: no shortness of breath, no cough, no wheezing. Cardiovascular: no chest pain, yes palpitations, no edema. Gastrointestinal: no nausea, no vomiting, no diarrhea, no GI bleeding. Genitourinary: no dysuria, no frequencyno hematuria Musculoskeletal: no back pain, no trauma. Neurologic: no headache, no dizziness, no numbness, no weakness. Psychiatric: no sleeping problems, no irritability, no mood swings/depression. Heme/Lymph: no bleeding tendency, no bruising tendency, no petechiae, Allergy/Immuno logic: no seasonal allergies, no food allergies, no recurrent infections Physical Exam Vitals & Measurements HR: 93(Peripheral) BP: 136/76 SpO2: 98% HT: 62 in HT: 158 cm WT: 102.4 kg WT: 225.28 lb BMI: 41.02 General: alert, no acute distress Neck: Supple, noJVD nocarotid bruit Cardiovascular: regular rate and rhythm, no murmur normal peripheral perfusion Respiratory: Lungs CTAB, respirations non labored Extremities: no edema left lower extremity. no edema right lower extremity Neurological: oriented x 4, LOC appropriate for age, speech normal Skin: Warm, dry, intact- no rash or concerning lesions Assessment/Plan 1. Palpitations (R00.2: Palpitations) Will obtain an ECG, 48-hour Holter monitor, transthoracic echocardiogram Follow-up No qualifying data available As needed Problem List/Past Medical History Ongoing Androgen level above reference range Bipolar disorder BMI 39.0-39.9,adult Current non-smoker Depressive disorder in mother complicating Elevated blood pressure reading without diagnosis of hypertension Fatigue Fatty liver High risk High serum testosterone Hyperinsulinemia Hypothyroid Maternal obesity complicating , childbirth and the puerperium, antepartum Obesity (BMI 30-39.9) Obesity caused by energy imbalance Polycystic ovary syndrome Recurrent sinusitis Serum testosterone level outside reference range Sinusitis Vitamin D deficiency Wellness examination Historical Alopecia areata Anemia Bipolar 1 disorder, manic, mild Depression Endogenous hyperlipidemia Migraine Positive urine drug screen benzoid Procedure/Surgical History Ethmoidectomy and turbinectomy (12/07/2021), Dental (02/28/2017), Cholecystectomy (2007). Medications Albuterol (Eqv-ProAir HFA) 90 mcg/inh inhalation aerosol, 2 puff(s), Inhalation, q4hr cholecalciferol 50,000 intl units oral capsule, 1250 mcg= 1 cap(s), Oral, q7day, 1 refills fluticasone 0.05 mg/inh Nasal [place], 1 spray(s), Nasal, Daily, PRN lamotrigine 150 mg Tab, 300 mg= 2 tab(s), Oral, Daily, 5 refills Levoxyl 137 mcg (0.137 mg) oral tablet, 137 mcg= 1 tab(s), Oral, Daily metformin 1000 mg Tab, 1000 mg= 1 tab(s), Oral, BID, 3 refills ondansetron 4 mg Tab, 4 mg= 1 tab(s), Oral, q8hr, PRN, Still taking, not as prescribed: Taking as needed Allergies Nubain (Hallucination, hallucin) Social History Alcohol - Denies Alcohol Use, 11/26/2019 Household alcohol concerns: No., 05/23/2022 Substance Abuse - Denies Substance Abuse, 11/26/2019 Household substance abuse concerns: No., 05/23/2022 Tobacco - Denies Tobacco Use, 07/30/2019 Never (less than 100 in lifetime) Tobacco Use:. Never Smokeless Tobacco Use:. Household tobacco concerns: No., 08/08/2023 Family History Afib: Father. Hyperlipidemia: Mother and Father. Hypertension: Mother and Father. Immunizations Vaccine Date Status Comments influenza virus vaccine, inactivated 06/08/2023 Recorded influenza virus vaccine, inactivated - Not Given Temporary contraindication - reschedule influenza virus vaccine, inactivated - Not Given Current Acute Illness Moderate to Severe influenza virus vaccine, inactivated - Not Given Patient Refuses influenza virus vaccine, inactivated 05/22/2022 Recorded influenza virus vaccine, inactivated 06/07/2021 Recorded SARS-CoV-2 (COVID-19) mRNA BNT-162b2 vax 11/10/2020 Given Prophylaxis SARS-CoV-2 (COVID-19) mRNA BNT-162b2 vax 10/20/2020 Given Prophylaxis influenza virus vaccine, inactivated 05/31/2020 Recorded influenza virus vaccine, inactivated 05/24/2020 Recorded influenza virus vaccine, inactivated - Not Given Patient Refuses influenza virus vac (more content not included)... [facility] Comment on above: Result Comment: Elec tronically Signed By: Yaa BAI, Arturo Mcdaniel\.br\Date and Time Signed: 01/01/24 11:42 EDT Insurance Correspondenceon 0 01-01-2024 Insurance Correspondence [id number]#1.00TIFF [facility] Physician Orderon 01-01-2024 Physician Order [id number]#1.00TIFF [facility] Referrals Officeon 4 Referrals Office [id number]#1.00TIFF [facility] Referrals Officeon 4 Referrals Office [id number]#1.00TIFF [facility] C Urineon 11-15-2023 Bacteria identified Cx Nom (U) Microbiology PROCEDURE: Urine Culture [R1] SOURCE: U CleanCatch BODY SITE: COLLECTED DATE/TIME: 11/13/2023 15:47 EDT RECEIVED DATE/TIME: 11/13/2023 19:27 EDT START DATE/TIME: 11/13/2023 19:27 EDT FREE TEXT SOURCE: Neva Pearson DO, DO, Mona J. FINAL REPORTS Final Report [] Verified Date/Time: 11/15/2023 10:21 EDT <10,000 cfu/ml Mixed skin contaminants Performing Locations R1: This test was performed at: [facility], [address] [place] [address], [id number]- , [place], Normal [facility] Comment on above: Performed By: #### 2 [id number] #### [facility] [address] [place] [address] 93900 HIV Screen 4th Generation wR fxon 11-15-2023 HIV 1+2 Ab+HIV1 p24 Ag IA Ql Non-Reactive Invalid Interpretation Code Non Reactive [facility] Comment on above: Result Comment: HIV Negative HIV-1/HIV-2 antibodies and HIV-1 p24 antigen were NOT detected. There is no laboratory evidence of HIV infection. Performed at: [address] [id number] PhD Blu Grubbs Performed By: #### 2 [id number], [id number], [id number] #### [facility] [address] [place] [address] 28858 Hep Bs Agon 11-15-2023 HBV surface Ag IA Ql Negative Invalid Interpretation Code Negative [facility] Comment on above: Result Comment: Perf ormed at: [address] [id number] PhD Blu Grubbs Performed By: #### 2 164649, [id number], [id number] #### [facility] [address] [place] [address] 38365 RPR with Conf Rfxon 11-15-19 24 Reagin Ab RPR Ql (S) Non-Reactive Invalid Interpretation Code Non Reactive [facility] Comment on above: Result Comment: Perf ormed at: [address] [id number] PhD Blu Grubbs Performed By: #### 2 206330, [id number], [id number] #### [facility] [address] [place] [address] 09763 Rubella IgGon 11-15-2023 Rubella virus IgG Qn (S) 2.82 [IU]/mL Invalid Interpretation Code Immune >0.99 [facility] Comment on above: Result Comment: Non- immune <0.90 Equivocal 0.90 - 0.99 Immune >0.99 Performed at: [facility] [id number] PhD Blu Grubbs Performed By: #### 2 129987, 7981404, [id number] #### [facility] [address] [place] [address]87 ABO/Rhon 11-13-2023 ABO/Rh Positive Invalid Interpretation Code [facility] Comment on above: Performed By: #### 2 383067, 1382471, [id number] #### [facility] [address] [place] [address] ABSCon 11-13-2023 ABSC Gel Interp Negative Normal [facility] Comment on above: Performed By: #### 2 683860, 4857106, [id number] #### [facility] [address] [place] [address] 24655 BLOOD BANKOrdered By: Dedrick Andrade on 11-13-2023 ABO/Rh Interp Positive Invalid Interpretation Code [facility] BB Subsection ABSC Gel Interp Negative (11/13/23 3:54 PM) Normal [facility] BB Subsection CBC w/ Auto Diffon 4 Basophils/100 WBC (Bld) 0.3 % Normal 0.0-2.0 [facility] Comment on above: Performed By: #### 2 409651, 1415640, [id number] #### [facility] [address] [place] [address] 41239 Basophils/Leukocytes Auto (Bld) [Pure # fraction] 0.0 E9/L Normal 0.0-0.2 [facility] Comment on above: Performed By: #### 2 670622, 7720453, [id number] #### [facility] [address] [place] [address] 42833 Eosinophils (Bld) [#/Vol] 0.3 E9/L Normal 0.0-0.5 [facility] Comment on above: Performed By: #### 2 064616, 9437646, [id number] #### [facility] [address] [place] [address] Eosinophils/100 WBC (Bld) 2.4 % Normal 0.0-8.0 [facility] Comment on above: Performed By: #### 2 434399, 0180257, 98636014 #### [facility] [address] [place] [address] 05233 Erythrocyte distribution width (RBC) [Ratio] 13.9 % Normal 10.9-14.2 [facility] Comment on above: Performed By: #### 2 087009, 7697085, [id number] #### [facility] [address] [place] [address] 81637 Hematocrit (Bld) [Volume fraction] 34.8 % Normal 34.0-46.0 [facility] Comment on above: Performed By: #### 2 153840, 9305415, [id number] #### [facility] [address] [place] [address] 32828 Hemoglobin (Bld) [Mass/Vol] 11.7 g/dL Low 12.0-16.0 [facility] Comment on above: Performed By: #### 2 617808, 2627810, [id number] #### [facility] [address] [place] [address] 89732 Lymphocytes (Bld) [#/Vol] 3.3 E9/L Normal 1.0-4.0 [facility] Comment on above: Performed By: #### 2 239011, 7256664, [id number] #### [facility] [address] [place] [address] 97298 Lymphocytes/100 WBC (Bld) 30.6 % Normal 14.0-50.0 [facility] Comment on above: Performed By: #### 2 522203, 4322988, 32361685 #### [facility] [address] [place] [address] 86830 MCH (RBC) [Entitic mass] 28.9 pg Normal 27.0-34.0 [facility] Comment on above: Performed By: #### 2 655878, 6692223, 21358612 #### [facility] [address] [place] [address] MCHC (RBC) [Mass/Vol] 33.8 g/dL Normal 31.4-36.0 [facility] Comment on above: Performed By: #### 2 547729, 8821224, [id number] #### [facility] [address] [place] [address] MCV (RBC) [Entitic vol] 85.6 fL Normal 80.0-100.0 [facility] Comment on above: Performed By: #### 2 805616, 0747593, 51822856 #### [facility] [address] [place] [address] Monocytes (Bld) [#/Vol] 0.8 E9/L Normal 0.2-1.0 [facility] Comment on above: Performed By: #### 2 327645, 3633738, [id number] #### [facility] [address] [place] [address] Neutrophils (Bld) [#/Vol] 6.3 E9/L Normal 2.0-7.5 [facility] Comment on above: Performed By: #### 2 184096, 4909845, 74790925 #### [facility] [address] [place] [address] 16662 Neutrophils/100 WBC (Bld) 59.4 % Normal 36.0-75.0 [facility] Comment on above: Performed By: #### 2 751616, 8794640, 19004870 #### [facility] [address] [place] [address] Platelet mean volume (Bld) [Entitic vol] 7.1 fL Normal 6.4-10.8 [facility] Comment on above: Performed By: #### 2 637475, 4155096, 15702292 #### [facility] [address] [place] [address] Platelets (Bld) [#/Vol] 376.0 E9/L Normal 150.0-500.0 [facility] Comment on above: Performed By: #### 2 412861, 2984583, 61017596 #### [facility] [address] [place] [address] RBC (Bld) [#/Vol] 4.1 E12/L Low 4.3-5.9 [facility] Comment on above: Performed By: #### 2 113005, 8426529, [id number] #### [facility] [address] [place] [address] 17803 WBC corrected for nucl RBC Auto (Bld) [#/Vol] 10.7 E9/L Normal 4.0-11.0 [facility] Comment on above: Performed By: #### 2 043627, 8772466, [id number] #### [facility] [address] [place] [address] 39185 CHEMISTRYOrdered By: Dedrick kendrick on 11-13-2023 HbA1c (Bld) [Mass fraction] 5.4 % Normal <=5.9% [facility] ChemAutoSS CHEMISTRYOrdered By: SYSTEM SYSTEM on 11-13-2023 TSH Qn 3.30 m[IU]/L Normal 0.34 - 5.60 mcIU/mL [facility] Amphetamines Screen method >1000 ng/mL Ql (U) NEGATIVE 6 (11/13/23 3:47 PM) Normal NEGATIVE [facility] Comment on above: Interpretive Data: N egative Cutoff: <1000 ng/mL Barbiturates Screen Ql (U) NEGATIVE 7 (11/13/23 3:47 PM) Normal NEGATIVE [facility] Comment on above: Interpretive Data: N egative Cutoff: <200 ng/mL Benzodiazepines Ql (U) NEGATIVE 1 (11/13/23 3:47 PM) Normal NEGATIVE [facility] Comment on above: Interpretive Data: N egative Cutoff: <200 ng/mL Cannabinoids Screen Ql (U) NEGATIVE 5 (11/13/23 3:47 PM) Normal NEGATIVE [facility] Comment on above: Interpretive Data: N egative Cutoff: <50 ng/mL Cocaine Ql (U) NEGATIVE 2 (11/13/23 3:47 PM) Normal NEGATIVE [facility] Comment on above: Interpretive Data: N egative Cutoff: <300 ng/mL Opiates Screen Ql (U) NEGATIVE 3 (11/13/23 3:47 PM) Normal NEGATIVE [facility] Comment on above: Interpretive Data: N egative Cutoff: <300 ng/mL Phencyclidine Screen method >25 ng/mL Ql (U) NEGATIVE 4 (11/13/23 3:47 PM) Normal NEGATIVE [facility] Comment on above: Interpretive Data: N egative Cutoff: <25 ng/mL These drug screen results are to be used for medical (i.e., treatment) purposes only. Unconfirmed drug screening results must not be used for non-medical purposes (e.g., employment testing, legal testing). U Fentanyl NEGATIVE 8 (11/13/23 3:47 PM) Normal NEGATIVE [facility] Comment on above: Interpretive Data: N egative Cutoff: <5 ng/mL These drug screen results are to be used for medical (i.e., treatment) purposes only. Unconfirmed drug screening results must not be used for non-medical purposes (e.g., employment testing, legal testing). Consent for Treatmenton 10-21 Consent for Treatment [id number]#1.00TIFF Normal [facility] HEMATOLOGYOrdered By: SYSTEM SYSTEM on 11-13-2023 Basophils/100 WBC (Bld) 0.3 % Normal 0.0 - 2.0 % [facility] Basophils/Leukocytes Auto (Bld) [Pure # fraction] 0.0 E9/L Normal 0.0 - 0.2 E9/L [facility] Eosinophils (Bld) [#/Vol] 0.3 E9/L Normal 0.0 - 0.5 E9/L [facility] Eosinophils/100 WBC (Bld) 2.4 % Normal 0.0 - 8.0 % [facility] Erythrocyte distribution width (RBC) [Ratio] 13.9 % Normal 10.9 - 14.2 % [facility] Hematocrit (Bld) [Volume fraction] 34.8 % Normal 34.0 - 46.0 % [facility] Hemoglobin (Bld) [Mass/Vol] 11.7 g/dL Low 12.0 - 16.0 gm/dL [facility] Lymphocytes (Bld) [#/Vol] 3.3 E9/L Normal 1.0 - 4.0 E9/L [facility] Lymphocytes/100 WBC (Bld) 30.6 % Normal 14.0 - 50.0 % [facility] MCH (RBC) [Entitic mass] 28.9 pg Normal 27.0 - 34.0 pg [facility]e MCHC (RBC) [Mass/Vol] 33.8 g/dL Normal 31.4 - 36.0 gm/dL [facility] MCV (RBC) [Entitic vol] 85.6 fL Normal 80.0 - 100.0 fL [facility] Monocytes (Bld) [#/Vol] 0.8 E9/L Normal 0.2 - 1.0 E9/L [facility] Monocytes/100 WBC (Bld) 7.3 % Normal 4.0 - 14.0 % [facility] Neutrophils (Bld) [#/Vol] 6.3 E9/L Normal 2.0 - 7.5 E9/L [facility] Neutrophils/100 WBC (Bld) 59.4 % Normal 36.0 - 75.0 % [facility] Platelet mean volume (Bld) [Entitic vol] 7.1 fL Normal 6.4 - 10.8 fL [facility] Platelets (Bld) [#/Vol] 376.0 E9/L Normal 150.0 - 500.0 E9/L [facility] RBC (Bld) [#/Vol] 4.1 E12/L Low 4.3 - 5.9 E12/L [facility] WBC corrected for nucl RBC Auto (Bld) [#/Vol] 10.7 E9/L Normal 4.0 - 11.0 E9/L [facility] [id number] 11-13-2023 HbA1c (Bld) [Mass fraction] 5.4 % Normal <=5.9 [facility] Comment on above: Performed By: #### 2 129584, 3611640, [id number] #### [facility] [address] [place] [address] Physician Orderon 11-13-2023 Physician Order [id number]#1.00TIFF Normal [facility] TSHon 11-13-2023 TSH Qn 3.30 m[IU]/L Normal 0.34-5.60 [facility] Comment on above: Performed By: #### 2 357105, 2308724, [id number] #### [facility] [address] [place] [address] U Drug Screenon 11-13-2023 Amphetamines Screen method >1000 ng/mL Ql (U) Negative Normal NEGATIVE [facility] Comment on above: Result Comment: Nega tive Cutoff: <1000 ng/mL Performed By: #### 2 310154 #### [facility] [address] [place] [address] Barbiturates Screen Ql (U) Negative Normal NEGATIVE [facility] Comment on above: Result Comment: Nega tive Cutoff: <200 ng/mL Performed By: #### 2 169925 #### [facility] [address] [place] [address] Benzodiazepines Ql (U) Negative Normal NEGATIVE [facility] Comment on above: Result Comment: Nega tive Cutoff: <200 ng/mL Performed By: #### 2 850402 #### [facility] [address] [place] [address] Cannabinoids Screen Ql (U) Negative Normal NEGATIVE [facility] Comment on above: Result Comment: Nega tive Cutoff: <50 ng/mL Performed By: #### 2 466668 #### [facility] [address] [place] [address] Cocaine Ql (U) Negative Normal NEGATIVE [facility] Comment on above: Result Comment: Nega tive Cutoff: <300 ng/mL Performed By: #### 2 296893 #### [facility] [address] [place] [address] Opiates Screen Ql (U) Negative Normal NEGATIVE [facility] Comment on above: Result Comment: Nega tive Cutoff: <300 ng/mL Performed By: #### 2 235647 #### [facility] [address] [place] [address] Phencyclidine Screen method >25 ng/mL Ql (U) Negative Normal NEGATIVE [facility] Comment on above: Result Comment: Nega tive Cutoff: <25 ng/mL These drug screen results are to be used for medical (i.e., treatment) purposes only. Unconfirmed drug screening results must not be used for non-medical purposes (e.g., employment testing, legal testing). Performed By: #### 2 123642 #### [facility] [address] [place] [address] U Fentanyl Negative Normal NEGATIVE [facility] Comment on above: Result Comment: Nega tive Cutoff: <5 ng/mL These drug screen results are to be used for medical (i.e., treatment) purposes only. Unconfirmed drug screening results must not be used for non-medical purposes (e.g., employment testing, legal testing). Performed By: #### 2 740264 #### [facility] [address] [place] [address] US 1st Trimesteron 10-30-2023 US 1st Trimester Exam Date/Time: 10/29/2023 21:23 EDT Reason for Exam: Threatened Miscarriage;Other (please specify) Report IMPRESSION: SINGLE LIVE INTRAUTERINE CORRESPONDING TO Composite Ultrasound Age: 7 weeks, 0 days, +/- 1 week. NO OTHER FINDINGS OF CONCERN IDENTIFIED, WITHIN THE LIMITS OF THE STUDY. EXAM: US 1st Trimester DATE: 10/29/2023 8:45 PM CLINICAL HISTORY: Threatened Miscarriage. LMP: 09/10/2023. Gestational Age by LMP: 7 weeks, 0 days COMPARISON: None available for this . TECHNIQUE: Transabdominal ultrasound was performed of the pelvis. FINDINGS: The study is somewhat limited by the patient's body habitus. The right ovary is not visualized, likely secondary to overlying bowel gas and position. An approximately 3 x 1.5 cm gestational sac is present within the central aspect of the uterine body/fundus, without significant surrounding subchorionic hemorrhage. [place] Rump Length: 0.9 cm, which corresponds Composite Ultrasound Age: 7 weeks, 0 days, +/- 1 week. The estimated date of delivery by measurements is: ALICE from average ultrasound age: 1106/16/2024. The ALICE from LMP: 06/16/2024. cardiac activity measures approximately 121 bpm, without visualized arrhythmia. There is no significant free fluid, or other findings of concern identified. The uterus is anteverted and minimally retroflexed in position, but otherwise unremarkable in appearance. The left ovary within normal limits, with expected blood flow on Doppler analysis. The uterus measurements and an estimated volume are: Uterus Length: 10.3 cm Uterus Width: 5.8 cm Uterus Height: 5.3 cm Uterus Volume: 165.6 cm3 The left ovary measurements and estimated volume are: Report Left Ovary Length: 2.4 cm Left Ovary Width: 1.8 cm Left Ovary Height: 1.6 cm Left Ovary Volume: 3.6 cm3 Ordering Provider: Ricky Hall FINAL REPORT Dictated: 10/30/2023 9:40 am Earl Summers MD Signed (Electronic Signature): 10/30/2023 9:40 am Signed by: Earl Summers MD Transcribed by: GLENN Technologist: JERED Technical Comments LMP : 2-24 [id number] History 8 Para 5 SAB 2 Transabdominal Ultrasound Performed FHR (bpm) 121 [place] Rump Length (in cm) 0.89 Size = Dates Normal [facility] ABO/Rhon 10-29-2023 ABO/Rh Positive Invalid Interpretation Code [facility] Comment on above: Performed By: #### 2 [id number] #### [facility] [address] [place] [address] BLOOD BANKOrdered By: Gaviota Mello on 10-29-2023 ABO/Rh Interp Positive Invalid Interpretation Code [facility] BB Subsection BMPon 10-29-2023 Anion gap [Moles/Vol] 13 mmol/L Normal 6-16 Fis [facility] Comment on above: Performed By: #### 2 162530, 5583451, [id number] #### [facility] [address] [place] [address] Calcium [Mass/Vol] 10.1 mg/dL Normal 8.9-11.1 [facility] Comment on above: Performed By: #### 2 606528, 6200873, [id number] #### [facility] [address] [place] [address] Chloride [Moles/Vol] 102 mmol/L Normal 101-111 [facility] Comment on above: Performed By: #### 2 543906, 9191318, 07684023 #### [facility] [address] [place] [address] CO2 [Moles/Vol] 25 mmol/L Normal 21-31 [facility] Comment on above: Performed By: #### 2 358267, 4569317, 98445876 #### [facility] [address] [place] [address] Creatinine [Mass/Vol] 0.6 mg/dL Normal 0.5-1.3 [facility] Comment on above: Performed By: #### 2 180517, 5988509, 62389681 #### [facility] [address] [place] [address] Glucose [Mass/Vol] 85 mg/dL Normal 55-199 [facility] Comment on above: Performed By: #### 2 703915, 5829161, [id number] #### [facility] [address] [place] [address] Potassium [Moles/Vol] 4.1 mmol/L Normal 3.5-5.3 [facility] Comment on above: Performed By: #### 2 061673, 7240812, 15370288 #### [facility] [address] [place] [address] Sodium [Moles/Vol] 136 mmol/L Normal 135-145 [facility] Comment on above: Performed By: #### 2 129797, 8560591, [id number] #### [facility] [address] [place] [address] Urea nitrogen [Mass/Vol] 9 mg/dL Normal 5-21 [facility] Comment on above: Performed By: #### 2 118063, 4493494, [id number] #### [facility] [address] [place] [address] Urea nitrogen/Creatinine [Mass ratio] 15 No Units Normal 10-20 [facility] Comment on above: Performed By: #### 2 143634, 8015070, 82047943 #### [facility] [address] [place] [address] BhCG Quanton 10-29-2023 [place] [address] m[IU]/mL High 1-3 F [facility] Comment on above: Result Comment: 'F N ON < 1 - 3' ' 0.2 - 1 WEEK = 5 TO 50' ' 1 - 2 WEEKS = 50 - 500' ' 2 - 3 WEEKS = 100 - 5000' ' 3 - 4 WEEKS = 500 - 47497' ' 4 - 5 WEEKS = 1000 - 39273' ' 5 - 6 WEEKS = 94417 - 145689' ' 6 - 8 WEEKS = 75836 - 378017' ' 8 - 12 WEEKS = 15883 - 088361' Performed By: #### 2 471173, 5702750, [id number] #### [facility] [address] [place] [address] CBC w/ Auto Diffon 4 Basophils/100 WBC (Bld) 1.1 % Normal 0.0-2.0 [facility] Comment on above: Performed By: #### 2 883303 #### [facility] [address] [place] [address] Basophils/Leukocytes Auto (Bld) [Pure # fraction] 0.1 E9/L Normal 0.0-0.2 [facility] Comment on above: Performed By: #### 2 733731 #### [facility] [address] [place] [address] Eosinophils (Bld) [#/Vol] 0.3 E9/L Normal 0.0-0.5 [facility] Comment on above: Performed By: #### 2 531469 #### [facility] [address] [place] [address] Eosinophils/100 WBC (Bld) 2.4 % Normal 0.0-8.0 [facility] Comment on above: Performed By: #### 2 487561 #### [facility] [address] [place] [address] Erythrocyte distribution width (RBC) [Ratio] 13.8 % Normal 10.9-14.2 [facility] Comment on above: Performed By: #### 2 620316 #### [facility] [address] [place] [address] Hematocrit (Bld) [Volume fraction] 37.1 % Normal 34.0-46.0 [facility] Comment on above: Performed By: #### 2 928360 #### [facility] [address] [place] [address] Hemoglobin (Bld) [Mass/Vol] 12.0 g/dL Normal 12.0-16.0 [facility] Comment on above: Performed By: #### 2 581073 #### [facility] [address] [place] [address] Lymphocytes (Bld) [#/Vol] 3.8 E9/L Normal 1.0-4.0 [facility] Comment on above: Performed By: #### 2 758632 #### [facility] [address] [place] [address] Lymphocytes/100 WBC (Bld) 32.4 % Normal 14.0-50.0 [facility] Comment on above: Performed By: #### 2 175953 #### [facility] [address] [place] [address] MCH (RBC) [Entitic mass] 27.9 pg Normal 27.0-34.0 [facility] Comment on above: Performed By: #### 2 242284 #### [facility] [address] [place] [address] MCHC (RBC) [Mass/Vol] 32.3 g/dL Normal 31.4-36.0 [facility] Comment on above: Performed By: #### 2 728950 #### [facility] [address] [place] [address] MCV (RBC) [Entitic vol] 86.4 fL Normal 80.0-100.0 [facility] Comment on above: Performed By: #### 2 [id number] #### [facility] [address] [place] [address] Monocytes (Bld) [#/Vol] 0.9 E9/L Normal 0.2-1.0 [facility] Comment on above: Performed By: #### 2 [id number] #### [facility] [address] [place] [address] Neutrophils (Bld) [#/Vol] 6.6 E9/L Normal 2.0-7.5 [facility] Comment on above: Performed By: #### 2 [id number] #### [facility] [address] [place] [address] Neutrophils/100 WBC (Bld) 56.7 % Normal 36.0-75.0 [facility] Comment on above: Performed By: #### 2 [id number] #### [facility] [address] [place] [address] Platelet 397.0 E9/L Normal 150.0-500.0 [facility] Comment on above: Performed By: #### 2 [id number] #### [facility] [address] [place] [address] Platelet mean volume (Bld) [Entitic vol] 6.9 fL Normal 6.4-10.8 [facility] Comment on above: Performed By: #### 2 [id number] #### [facility] [address] [place] [address] RBC (Bld) [#/Vol] 4.3 E12/L Normal 4.3-5.9 [facility] Comment on above: Performed By: #### 2 [id number] #### [facility] [address] [place] [address] WBC corrected for nucl RBC Auto (Bld) [#/Vol] 11.6 E9/L High 4.0-11.0 [facility] Comment on above: Performed By: #### 2 [id number] #### [facility] [address] [place] [address] CHEMISTRYOrdered By: SYSTEM SYSTEM on 10-29-2023 Anion gap [Moles/Vol] 13 mmol/L Normal 6 - 16 mEq/L R emisol Chem Calcium [Mass/Vol] 10.1 mg/dL Normal 8.9 - 11. 1 mg/dL Remisol Chem Chloride [Moles/Vol] 102 mmol/L Normal 101 - 1 11 mmol/L Remisol Chem CO2 [Moles/Vol] 25 mmol/L Normal 21 - 31 mmol/L Remisol Chem Creatinine [Mass/Vol] 0.6 mg/dL Normal 0.5 - 1.3 mg/dL Remisol Chem eGFR 118 mL/min/1.73 m2 Normal >=59mL/mi n/1 .73 m2 Remisol Chem Glucose [Mass/Vol] 85 mg/dL Normal 55 - 199 mg/dL [place] [address] m[IU]/mL High 1 - 3 mIU/mL [facility] Chem Comment on above: Result Comment: 'F N ON < 1 - 3' ' 0.2 - 1 WEEK = 5 TO 50' ' 1 - 2 WEEKS = 50 - 500' ' 2 - 3 WEEKS = 100 - 5000' ' 3 - 4 WEEKS = 500 - 24207' ' 4 - 5 WEEKS = 1000 - 69216' ' 5 - 6 WEEKS = 77972 - 101870' ' 6 - 8 WEEKS = 70667 - 001028' ' 8 - 12 WEEKS = 30944 - 268374' Potassium [Moles/Vol] 4.1 mmol/L Normal 3.5 - 5.3 mmol/L Remisol Chem Sodium [Moles/Vol] 136 mmol/L Normal 135 - 145 mmol/L Remisol Chem Urea nitrogen [Mass/Vol] 9 mg/dL Normal 5 - 21 mg/dL Remisol Chem Urea nitrogen/Creatinine [Mass ratio] 15 mg/mg Normal 10 - 20 Remisol Chem Consent for Treatmenton Consent for Treatment [id number] Normal [facility] Discharge Instructionson Discharge Instructions [id number] Normal [facility] ED Clinical Summaryon 2023 ED Clinical Summary (Inserted Image. Amada ble to display) [address] [address] ED Clinical Summary Person Information Name: ILDA VIERA [place] Age: 38 Years : 1985 Sex: Female Language: Icelandic PCP: Linda Lutz Marital Status: Phone: [phone] Visit Id: Visit Reason: Abdominal pain; Vaginal bleeding - < 20 wks ; 7 WEEKS / VIGINAL BLEEDING Speciality: Acuity: 3 Enc Type: Emergency Med Service: Emergency Arrival: 10/29/2023 18:48:02 Discharge: 10/29/2023 22:06:57 LOS: 000 03:18 Checkin: 10/29/2023 18:48:02 Checkout: 10/29/2023 22:06:57 Dispo Type: Home (Routine DC) EVENTS: Event Name Event Status Request Date/Time Start Date/Time Complete Date/Time Arrive Complete 10/29/2023 18:48:02 10/29/2023 18:48:02 10/29/2023 18:48:02 Document Home Meds Request 10/29/2023 18:48:02 Triage Complete 10/29/2023 18:48:02 10/29/2023 18:55:54 10/29/2023 18:55:54 Registration Complete 10/29/2023 18:49:51 10/29/2023 18:49:51 10/29/2023 18:49:51 Reg Complete Request 10/29/2023 18:49:51 Reg Bed Request Complete 10/29/2023 18:49:51 10/29/2023 18:49:51 10/29/2023 18:49:51 Bed Assign Complete 10/29/2023 18:58:50 10/29/2023 18:58:50 10/29/2023 18:58:50 Dr Exam Complete 10/29/2023 18:58:50 10/29/2023 19:04:25 10/29/2023 19:04:25 RN Exam Complete 10/29/2023 18:58:50 10/29/2023 19:34:09 10/29/2023 19:34:09 Registration Complete 10/29/2023 19:04:25 10/29/2023 19:21:16 10/29/2023 19:21:16 Pending Labs Complete 10/29/2023 19:05:19 10/29/2023 20:15:16 Blood Collect Request 10/29/2023 19:05:19 Lab Complete 10/29/2023 19:05:19 10/29/2023 20:15:16 Patient Care Request 10/29/2023 19:05:20 Pending Labs Complete 10/29/2023 19:28:38 10/29/2023 19:28:38 10/29/2023 19:49:09 Lab Complete 10/29/2023 19:28:38 10/29/2023 19:28:38 10/29/2023 19:49:09 Pending Labs Complete 10/29/2023 19:28:39 10/29/2023 19:28:39 10/29/2023 19:49:09 Lab Complete 10/29/2023 19:28:39 10/29/2023 19:28:39 10/29/2023 19:49:09 Meds Admin Complete 10/29/2023 19:36:31 10/29/2023 19:52:17 US Complete 10/29/2023 19:47:56 10/29/2023 20:45:39 10/29/2023 21:23:25 Pending Labs Request 10/29/2023 21:15:57 Discharge Complete 10/29/2023 21:47:13 10/29/2023 22:07:09 10/29/2023 22:07:09 Transfer Complete 10/29/2023 22:07:09 10/29/2023 22:07:09 10/29/2023 22:07:09 ADDRESS: [address] [place] [address] [address] [facility] [id number] [facility] DOC NOTES: MEDICAL INFORMATION: Prescriptions Given: Medications to Continue with No Changes Other Medications fluticasone nasal (fluticasone 0.05 mg/inh Nasal [place]) 1 Sprays Nasal Inhalation every day as needed Allergy symptoms. levothyroxine (Levoxyl 137 mcg (0.137 mg) oral tablet) 1 Tablets By Mouth every day. ondansetron (ondansetron 4 mg Tab) 1 Tablets By Mouth every 8 hours as needed Nausea/Vomiting. tizanidine (tiZANidine 4 mg Tab) 1 Tablets By Mouth at bedtime. PATIENT EDUCATION INFORMATION: Instructions: Threatened Miscarriage Follow up: With: Address: When: Neva Pearson [address], [employer] [address] [place] [phone] Business (1) In 2 days 10/31/2023 DIAGNOSIS: Threatened miscarriage Normal [facility] ED Note-Physicianon 10-29-19 ED Note-Physician Basic Information Time Seen: Ricky Hall DO 10/29/2023 19:04 Chief Complaint Pt presents to ED with vaginal bleedeing and cramping onset yesterday. Pt around 7 weeks IUP History of Present Illness HPI: Patient is a 38-year-old female approximately 7 weeks by dates, with past medical history of bipolar, fatty liver, hypothyroidism, PCOS who presents the ED for pelvic cramping and vaginal bleeding. Patient states that 2 nights ago she started having small amounts of spotting and today she started having pelvic cramping and more vaginal bleeding. She states that she follows with Dr. Hooks for [facility] ATT[facility]. She believes she is Rh+ and has had 2 children and has not had to receive RhoGAM. She denies any other symptoms at this time. ROS: Pertinent review of systems conducted and is negative except as noted above. Physical exam: General: nontoxic appearing and in no distress HEENT: Mucous membranes moist Neuro: awake and alert Neck: supple, trachea midline Card: Heart regular rate and rhythm no murmur Resp: Lungs clear to auscultation no wheeze or rhonchi Abd: Soft and nondistended. No tenderness to palpation with no rebound or guarding. Ext: No gross deformity or edema Physical Exam Vitals & Measurements T: 36.5 ?C(Oral) HR: 86(Peripheral) RR: 18 BP: 162/106 SpO2: 100% HT: 158 cm WT: 98.9 kg BMI: 39.62 Medical Decision Making MEDICAL DECISION MAKING Number and Complexity of Problems Differential Diagnosis: [] [facility] Data External documents reviewed: N/A My EKG interpretation: Noted in chart if applicable My CT interpretation: N/A My X-ray interpretation: Noted in chart if applicable My Ultrasound interpretation: N/A Decision rules/scores evaluated: N/A Discussed with: N/A Treatment and Disposition ED Course: Is nontoxic-appearing in no distress. Her Rh is positive. She does not require RhoGAM. She has not had a ultrasound to evaluate for IUP at this so we will obtain a ultrasound. component technician reports that there is a single live IUP measuring 7 weeks and 0 days with a heart rate of 121. No other significant abnormality. Harley with the patient the diagnosis of threatened miscarriage and the need for follow-up within the next 48 hours with her H[facility] ATTENDANT. She does have a scheduled appointment with them tomorrow. We discussed return precautions. Patient states understanding agreement this plan was discharged stable condition. Shared decision making: As above Code status: N/A [X] The patient is and presents with abdominal pain or vaginal bleeding. A trans-abdominal or trans-vaginal ultrasound was performed and the location is documented. [SATISFIES MIPS PERFORMANCE] [ ] The patient is pregant and presents with abdominal pain or vaginal bleeding. A trans-abdominal or trans-vaginal ultrasound was NOT performed because [] (ex. patient has visited the ED multiple times in the last 72 hours, patient has documented intrauterine ) [MIPS PERFORMANCE EXCEPTION/EXCLUSION] [ ] The patient is pregant and presents with abdominal pain or vaginal bleeding. A trans-abdominal or trans-vaginal ultrasound was NOT performed, no reason documented. [DOES NOT SATISFY MIPS PERFORMANCE] Assessment/Plan Threatened miscarriage (O20.0: Threatened ) Orders: Lactated Ringers Injection, 1,000 mL, Soln-IV, IV, Once, Stop date 10/29/23 19:36:00 EDT, STAT, Start date 10/29/23 19:36:00 EDT, mL/hr, Infuse over 61, minute(s) ABO/Rh Basic Metabolic Panel Beta hCG Quantitative CBC w/ Auto Diff eGFR Extra Blue Tube Extra SST Tube Saline Lock Insert UA with Cult Rflx US 1st Trimester Medications Administered Given [id number] [F], 1000 mL, IV Disposition Plan Discharge Prescription List Prescriptions No active prescription medications Follow-up With When Contact Information Neva Pearsno In 2 days 10/31/2023 EDT [address] [address]- [facility] (1) Additional Instructions: Patient Education Threatened Miscarriage Problem List/Past Medical History Ongoing Androgen level above reference range Bipolar disorder BMI 39.0-39.9,adult Current non-smoker Depressive disorder in mother complicating Elevated blood pressure reading without diagnosis of hypertension Fatigue Fatty liver High risk High serum testosterone Hyperinsulinemia Hypothyroid Maternal obesity complicating , childbirth and the puerperium, antepartum Obesity (BMI 30-39.9) Obesity caused by energy imbalance Polycystic ovary syndrome Recurrent sinusitis Serum testosterone level outside reference range Sinusitis Vitamin D deficiency Wellness examination Historical Alopecia areata Anemia Bipolar 1 disorder, manic, mild Depression Endogenous hyperlipidemia Migraine Positive urine drug screen benzoid Pr (more content not included)... Normal [facility] Comment on above: Result Comment: Elec tronically Signed By: Ricky Hall DO\.br\Date and Time Signed: 10/29/23 21:48 EDT ED Patient Education Noteon 10-29-2023 ED Patient Education Note Obstetrics and Gynecology Threatened Miscarriage A threatened miscarriage occurs when a woman has vaginal bleeding during the first 20 weeks of but the has not ended. If vaginal bleeding occurs during this time, the health care provider will do tests to make sure the woman is still . The woman's condition may be considered a threatened miscarriage if the tests show: ? That she is still . ? That the embryo or unborn baby (fetus) inside the uterus is still growing. A threatened miscarriage does not mean your will end, but it does increase the risk of losing your (miscarriage). What are the causes? The cause of this condition is usually not known. What increases the risk? The following factors may make a woman more likely to have a miscarriage: Certain medical conditions ? Conditions that affect the hormone balance in the body, such as thyroid disease or polycystic ovary syndrome. ? Diabetes. ? Autoimmune disorders. ? Infections. ? Bleeding disorders. ? Obesity. Lifestyle factors ? Using products with tobacco or nicotine or being exposed to tobacco smoke. ? Having alcohol. ? Having large amounts of caffeine. ? Recreational drug use. Problems with reproductive organs or structures ? Cervical insufficiency. This is when the the lowest part of the uterus (cervix) opens and thins before is at term. ? Having a condition called Asherman syndrome, which causes scarring in the uterus or causes the uterus to be abnormal in structure. ? Fibrous growths, called fibroids, in the uterus. ? Congenital abnormalities. These problems are present at . ? Infection of the cervix or uterus. Personal or medical history ? Injury (trauma). ? Having had a miscarriage before. ? Being younger than age 18 or older than age 35. ? Exposure to harmful substances in the environment. This may include radiation or heavy metals, such as lead. ? Using certain medicines. What are the signs or symptoms? Symptoms of this condition include: ? Vaginal bleeding or spotting, with or without cramps or pain. ? Mild pain or cramps in your abdomen. How is this diagnosed? You may have tests to check whether you are still . These tests will be done if you have bleeding, with or without pain, in your abdomen before the 20th week of . These tests include: ? Ultrasound. ? A physical exam. ? Measurement of your baby's heart rate. ? Lab tests, such as blood tests, urine tests, or swabs for infection. You may be diagnosed with a threatened miscarriage if: ? Ultrasound testing shows that you are still . ? Your baby's heart rate is strong. ? A physical exam shows that your cervix is closed. ? Blood tests confirm that you are still . How is this treated? No treatments have been shown to prevent a threatened miscarriage from going on to a complete miscarriage. However, the right home care is important. Follow these instructions at home: ? Get plenty of rest. ? Do not have sex, douche, or put anything in your vagina, such as tampons, until your health care provider says it is okay. ? Do not smoke or use recreational drugs. ? Do not drink alcohol. ? Avoid caffeine. ? Keep all follow-up visits. This is important. Contact a health care provider if: ? You have light vaginal bleeding or spotting while . ? You have pain or cramping in your abdomen. ? You have a fever. Get help right away if: ? Heavy bleeding soaks through 2 large sanitary pads an hour for more than 2 hours. ? Blood clots come out of your vagina. ? Tissue comes out of your vagina. ? You leak fluid, or you have a gush of fluid from your vagina. ? You have severe low back pain or cramps in your abdomen. ? You have a fever, chills, and severe pain in the abdomen. Summary ? A threatened miscarriage occurs when a woman bleeds from the vagina during the first 20 weeks of but the has not ended. ? The cause of a threatened miscarriage is usually not known. ? Symptoms of this condition may include vaginal bleeding and mild pain or cramps in your abdomen. ? No treatments have been shown to prevent a threatened miscarriage from going on to a complete miscarriage. ? Keep all follow-up visits. This is important. This information is not intended to replace advice given to you by your health care provider. Make sure you discuss any questions you have with your health care provider. Document Revised: 01/06/2021 Document Reviewed: 01/06/2021 [employer] Patient Education ? 2022 [employer]. Normal [facility] ED Patient Summaryon 024 ED Patient Summary (Inserted Image. Amada ble to display) [address] [address] Patient Discharge Instructions Person Information Name: ILDA VIERA Age: 38 Years Arrival Date: 10/29/2023 18:48:02 Discharge Diagnosis: Threatened miscarriage Primary Care Physician: Linda Lutz Provider Information Primary Provider: Ricky Hall DO Advanced Curriculum Assistant:None The exam and treatment you received in the Emergency Department were for an urgent problem and are not intended as complete care. It is important that you follow up with a doctor, nurse practitioner, or physician?s pharmaceutical assistant for ongoing care. If your symptoms become worse or you do not improve as expected and you are unable to reach your usual health care provider, you should return to the Emergency Department. We are available 24 hours a day. ILDA VIERA has been given the following list of patient education materials, prescriptions and follow-up instructions: Follow-up Instructions: With: Address: When: Neva Pearson [address], [address] [address] Business (1) In 2 days 10/31/2023 In the event that this physician does not participate in your insurance network, please consult with your insurance company to find a nearby participating provider. Patient Education Materials: Threatened Miscarriage A MESSAGE TO ALL PATIENTS REGARDING OPIOIDS PRESCRIPTION OPIOIDS: WHAT YOU NEED TO KNOW Prescription opioids can be used to help relieve [id number] pain and are often prescribed following a surgery or injury, or for certain health conditions. These medications can be an important part of the treatment but also come with serious risks. It is important to work with your healthcare provider to make sure you are getting the safest, most effective care. WHAT ARE THE RISKS AND SIDE EFFECTS OF OPIOID USE? Prescription opioids carry serious risks of addiction and overdose, especially with prolonged use. An opioid overdose, often marked by slowed breathing, can cause sudden . The use of prescription opioids can have a number of side effects as well, even when taken as directed: ? Tolerance?meaning you might need to take more of the medication for the same pain relief ? Physical dependence?meaning you have symptoms of withdrawal when a medication is stopped ? Increased sensitivity to pain ? Constipation ? Nausea, vomiting, and dry mouth ? Sleepiness and dizziness ? Confusion ? Depression ? Low levels of testosterone that can result in lower sex drive, energy, and strength ? Itching and sweating RISKS ARE GREATER WITH: ? History of drug misuse, substance use disorder, or overdose ? Mental health conditions (such as depression or anxiety) ? Sleep apnea ? Older age (65 years and older) ? Avoid alcohol while taking prescription opioids. Also, unless specifically advised by your health care provider, medications to avoid include: ? Benzodiazepines (such as Xanax or Valium) ? Muscle relaxants (such as Soma or Flexeril) ? Hypnotics (such as Ambien or Lunesta) ? Other prescription opioids KNOW YOUR OPTIONS Talk to your health care provider about ways to manage your pain that don?t involve prescription opioids. Some of these options may actually work better and have fewer risks and side effects. Options may include: ? Pain relievers such as acetaminophen, ibuprofen, and naproxen ? Some medication that are also used for depression or seizures ? Physical therapy and exercise ? Cognitive behavioral therapy, a psychological, goal-directed approach, in which patients learn how to modify physical, behavioral, and emotional triggers of pain and stress. IF YOU ARE PRESCRIBED OPIOIDS FOR PAIN: ? Never take opioids in greater amounts or more often than prescribed. ? Follow up with your primary health care provider. o Work together to create a plan on how to manage your pain. o Talk about ways to help manage your pain that don?t involve prescription opioids. o Talk about any and all concerns and side effects. ? Help prevent misuse and abuse o Never sell or share prescription opioids. o Never use another person?s prescription opioids. ? Store prescription opioids in a secure place and out of reach of others (this may include visitors, children, friends, and family). ? Safely dispose of unused prescription opioids: Find your community drug take-back program or your pharmacy mail-back program, or flush them down the toilet, following guidance from the Food and Drug Administration (www.fda.gov/Drugs/Resour cesForYou). ? Visit www.cdc.gov/drugoverdose to learn about the risks of opioids abuse and overdose. ? If you believe you may be struggling with addiction, tell your health child day care provider and ask for guidance or call [facility] National Helpline at 2-213-213-[employer]. Feidee (more content not included)... Normal [facility] HEMATOLOGYOrdered By: SYSTEM SYSTEM on 10-29-2023 Basophils/100 WBC (Bld) 1.1 % Normal 0.0 - 2.0 % Remisol Heme Basophils/Leukocytes Auto (Bld) [Pure # fraction] 0.1 E9/L Normal 0.0 - 0.2 E9/L Remisol Heme Eosinophils (Bld) [#/Vol] 0.3 E9/L Normal 0.0 - 0.5 E9/L Remisol Heme Eosinophils/100 WBC (Bld) 2.4 % Normal 0.0 - 8.0 % Remisol Heme Erythrocyte distribution width (RBC) [Ratio] 13.8 % Normal 10.9 - 14.2 % Remisol Heme Hematocrit (Bld) [Volume fraction] 37.1 % Normal 34.0 - 46.0 % Remisol Heme Hemoglobin (Bld) [Mass/Vol] 12.0 g/dL Normal 12.0 - 16.0 gm/dL Remisol Heme Lymphocytes (Bld) [#/Vol] 3.8 E9/L Normal 1.0 - 4.0 E9/L Remisol Heme Lymphocytes/100 WBC (Bld) 32.4 % Normal 14.0 - 50.0 % Remisol Heme MCH (RBC) [Entitic mass] 27.9 pg Normal 27.0 - 34.0 pg Remisol Heme MCHC (RBC) [Mass/Vol] 32.3 g/dL Normal 31.4 - 36.0 gm/dL Remisol Heme MCV (RBC) [Entitic vol] 86.4 fL Normal 80.0 - 100.0 fL Remisol Heme Monocytes (Bld) [#/Vol] 0.9 E9/L Normal 0.2 - 1.0 E9/L Remisol Heme Monocytes/100 WBC (Bld) 7.4 % Normal 4.0 - 14.0 % Remisol Heme Neutrophils (Bld) [#/Vol] 6.6 E9/L Normal 2.0 - 7.5 E9/L Remisol Heme Neutrophils/100 WBC (Bld) 56.7 % Normal 36.0 - 75.0 % Remisol Heme Platelet 397.0 E9/L Normal 150.0 - 500.0 E9/L Remisol Heme Platelet mean volume (Bld) [Entitic vol] 6.9 fL Normal 6.4 - 10.8 fL Remisol Heme RBC (Bld) [#/Vol] 4.3 E12/L Normal 4.3 - 5.9 E12/L Remisol Heme WBC corrected for nucl RBC Auto (Bld) [#/Vol] 11.6 E9/L High 4.0 - 11.0 E9/L Remisol Heme eGFRon 10-29-2023 eGFR 118 mL/min/1.73 m2 Normal >=59 [facility] Comment on above: Order Comment: Order added by Discern Expert. Performed By: #### 2 [id number], [id number] #### [facility] [address] [place] [address] [facility] [place] 10-16-2023 HCG.beta subunit Qn 1626 m[IU]/mL High 1-3 [facility] Comment on above: Result Comment: 'F N ON < 1 - 3' ' 0.2 - 1 WEEK = 5 TO 50' ' 1 - 2 WEEKS = 50 - 500' ' 2 - 3 WEEKS = 100 - 5000' ' 3 - 4 WEEKS = 500 - 91440' ' 4 - 5 WEEKS = 1000 - 98301' ' 5 - 6 WEEKS = 05351 - 730670' ' 6 - 8 WEEKS = 84199 - 621237' ' 8 - 12 WEEKS = 41727 - 036716' Performed By: #### 2 [id number], [id number], [id number], [id number], [id number], [id number], [id number], 1199261, 5437572, 2260317, 6688357, [id number], [id number], 4798944, 9729907, 2722635, 8841274, 02965365, [id number], [id number], 8581086, 7300745, 6746211, 8311260, 4765660, 31539119, 6464238, [id number] #### [facility] [address] [place] [address] CHEMISTRYOrdered By: SYSTEM SYSTEM on 10-16-2023 HCG.beta subunit Qn 1626 m[IU]/mL High 1 - 3 mIU/mL Remisol Chem Comment on above: Result Comment: 'F N ON < 1 - 3' ' 0.2 - 1 WEEK = 5 TO 50' ' 1 - 2 WEEKS = 50 - 500' ' 2 - 3 WEEKS = 100 - 5000' ' 3 - 4 WEEKS = 500 - 60011' ' 4 - 5 WEEKS = 1000 - 14444' ' 5 - 6 WEEKS = 68276 - 634769' ' 6 - 8 WEEKS = 11347 - 171687' ' 8 - 12 WEEKS = 93546 - 979144' Consent for Treatmenton 09-20 Consent for Treatment [id number] Normal [facility] Physician Orderon 10-16-2023 Physician Order [id number] F [facility] HCG.beta subunit Qn 547 m[IU]/mL High 1-3 [facility] Comment on above: Result Comment: 'F N ON < 1 - 3' ' 0.2 - 1 WEEK = 5 TO 50' ' 1 - 2 WEEKS = 50 - 500' ' 2 - 3 WEEKS = 100 - 5000' ' 3 - 4 WEEKS = 500 - 91572' ' 4 - 5 WEEKS = 1000 - 89306' ' 5 - 6 WEEKS = 27858 - 070026' ' 6 - 8 WEEKS = 15186 - 829662' ' 8 - 12 WEEKS = 39055 - 500912' Performed By: #### 2 [id number], [id number], [id number] #### [facility] [address] [place] [address] CHEMISTRYOrdered By: SYSTEM SYSTEM on 10-14-2023 HCG.beta subunit Qn 547 m[IU]/mL High 1 - 3 mIU/mL R emisol Chem Comment on above: Result Comment: 'F N ON < 1 - 3' ' 0.2 - 1 WEEK = 5 TO 50' ' 1 - 2 WEEKS = 50 - 500' ' 2 - 3 WEEKS = 100 - 5000' ' 3 - 4 WEEKS = 500 - 40113' ' 4 - 5 WEEKS = 1000 - 06581' ' 5 - 6 WEEKS = 10901 - 771325' ' 6 - 8 WEEKS = 16700 - 675883' ' 8 - 12 WEEKS = 62579 - 068917' Consent for Treatmenton 09-20 Consent for Treatment [id number]#1.00TIFF Normal [facility] Physician Orderon 10-14-2023 Physician Order [id number]#[id number] Normal [facility] DHEA-S BLDon 09-20-2023 DHEA-S [Mass/Vol] 161.5 ug/dL Normal 60.9-337.0 [facility] Comment on above: Order Comment: Speci men Type: BLOOD SPECIMEN Ordering Facility: [facility] Address: [address] [place] [address] [place] [address] Result Comment: Refe rence ranges are age and gender specific. For additional information, reference range tables can be found in the laboratory test directory. The normal values are based on the following source: Dehydroepiandrosterone sulfate (DHEA S) [package insert V 17.0 Icelandic]. [facility], [place], [place]: February 2013. Performed By: #### 3 051-0, 3024-7, DHEAS #### [facility] CLIA [id number] [address] [place] [address] OF [place] #### 20346-3 #### [facility] CLIA [id number] [address] [place] [address] [place] [facility] CLIA [id number] [address] [place] [address] Insulin SerPl-aCncon 024 Insulin Qn 65.3 u[IU]/mL High 3.0-25.0 [facility] Comment on above: Order Comment: Speci men Type: BLOOD SPECIMENOrdering Facility: [facility] Address: [address] [place] [address] Performed By: #### 2 0448-7 ####[facility] [id number] [address] OF [place] Lipid 1996 panelon 4 Cholesterol [Mass/Vol] 198 mg/dL Normal <200 [facility] Comment on above: Order Comment: Speci men Type: BLOOD SPECIMEN Ordering Facility: [facility] Address: [address] [place] [address] Result Comment: <200 mg/dL, Desirable 200-239 mg/dL, Borderline high >239 mg/dL, High Performed By: #### 3 051-0, 3024-7, DHEAS #### [facility] CLIA [id number] [address] [place] [address] [place] #### [id number] #### [facility] CLIA [id number] STATES [place] [facility] CLIA [id number] [address] [place] [address] Cholesterol in HDL [Mass/Vol] 54 mg/dL Normal >39 [facility] Comment on above: Order Comment: Speci men Type: BLOOD SPECIMEN Ordering Facility: [facility] Address: [address] [place] [address] Result Comment: 40-5 9 mg/dL, Acceptable >59 mg/dL, High: Negative risk factor for coronary heart disease <40 mg/dL, Low: Positive risk factor for coronary heart disease Performed By: #### 3 051-0, 3024-7, DHEAS #### [facility] CLIA [id number] [address] [place] [address] [place] #### [id number] #### [facility] CLIA [id number] [address] [place] [address] [place] [facility] CLIA [id number] [address] [place] [address] Cholesterol in LDL [Mass/Vol] 105 mg/dL High <100 [facility] Comment on above: Order Comment: Speci men Type: BLOOD SPECIMEN Ordering Facility: [facility] Address: [address] [place] [address] Result Comment: <100 mg/dL, Optimal 100-129 mg/dL, Near optimal/above optimal 130-159 mg/dL, Borderline high 160-189 mg/dL, High >189 mg/dL, Very high Secondary prevention optimal LDL Cholesterol levels are recommended to be < 70 mg/dL Performed By: #### 3 051-0, 3024-7, DHEAS #### [facility] CLIA [id number] [address] [place] [address] [place] #### 60107-4 #### [facility] CLIA [id number] [address] [place] [address] [place] [facility] CLIA [id number] [address] [place] [address] Cholesterol in LDL/Cholesterol in HDL [Mass ratio] 1.94 {ratio} Normal <2.54 [facility] Comment on above: Order Comment: Speci men Type: BLOOD SPECIMEN Ordering Facility: [facility] Address: [address] [place] [address] Result Comment: Elbae landen: 1. National Cholesterol Education Program ATP III Guideline At-A-Glance Quick Desk Reference: National Heart, Lung, and Blood [place]. National Institutes of Health. 2001: NIH Publication No. 01-3305. 2. An International Atherosclerosis Society position paper: global recommendations for the management of dyslipidemia: executive summary, Atherosclerosis. 2014: 232(2):410-413. Performed By: #### 3 051-0, 302-7, DHEAS #### [facility] CLIA [id number] [address] [place] [address] [place] #### [id number] #### [facility] CLIA [id number] [address] [place] [address] [place] [facility] CLIA [id number] [address] [place] [address] Cholesterol in VLDL [Mass/Vol] 39 mg/dL High <30 [facility] Comment on above: Order Comment: Speci men Type: BLOOD SPECIMEN Ordering Facility: [facility] Address: [address] [place] [address] Performed By: #### 3 051-0, 302-7, DHEAS #### [facility] CLIA [id number] [address] [place] [address] [place] #### [id number] #### [facility] CLIA [id number] [address] [place] [address] [place] [facility] CLIA [id number] [address] [place] [address] Cholesterol non HDL [Mass/Vol] 144 mg/dL High <130 [facility] Comment on above: Order Comment: Speci men Type: BLOOD SPECIMEN Ordering Facility: [facility] Address: [address] [place] [address] Result Comment: <130 mg/dL, Optimal 130-159 mg/dL, Near optimal/above optimal 160-189 mg/dL, Borderline high 190-219 mg/dL, High >219 mg/dL, Very high Secondary prevention optimal non HDL Cholesterol levels are recommended to be <100 mg/dL Performed By: #### 3 051-0, 3024-7, DHEAS #### [facility] CLIA [id number] [address] [place] [address] [place] #### 30777-5 #### [facility] CLIA [id number] [address] [place] [address] STATES OF [facility] CLIA [id number] [address] [place] [address] Cholesterol.total/Cho lesterol in HDL [Mass ratio] 3.67 {ratio} Normal <5.10 [facility] Comment on above: Order Comment: Speci men Type: BLOOD SPECIMEN Ordering Facility: [facility] Address: [address] [place] [address] Performed By: #### 3 051-0, 3024-7, DHEAS #### [facility] CLIA [id number] [address] [place] [address] [place] #### 38202-4 #### [facility] CLIA [id number] [address] [place] [address] STATES OF [facility] CLIA [id number] [address] [place], [place] [address] FASTING TIME 12 hrs Normal [facility] Comment on above: Order Comment: Speci men Type: BLOOD SPECIMEN Ordering Facility: [facility] Address: [address] [place] [address] Performed By: #### 3 051-0, 3027, DHEAS #### [facility] CLIA [id number] [address] [place] [address] [place] #### 69155-2 #### [facility] CLIA [id number] [address] [place], [place] [address] [place] [facility] CLIA [id number] [address] [place], [place] [address] Triglyceride [Mass/Vol] 197 mg/dL High <150 [facility] Comment on above: Order Comment: Speci men Type: BLOOD SPECIMEN Ordering Facility: [facility] Address: [address] [place] [address] Result Comment: <150 mg/dL, Normal 150-199 mg/dL, Borderline high 200-499 mg/dL, High >499 mg/dL, Very high Performed By: #### 3 051-0, 7, DHEAS #### [facility] CLIA [id number] [address] [place] [address] [place] #### 16465-9 #### [facility] CLIA [id number] [address] [place] [address] [place] [facility] CLIA [id number] [address] [place], [place] [address] [facility] Free T3 [Mass/Vol] 2.9 pg/mL Normal 2.3-4.1 [facility] Comment on above: Order Comment: Speci men Type: BLOOD SPECIMEN Ordering Facility: [facility] Address: [address] [place] [address] Performed By: #### 3 051-0, 302-7, DHEAS #### [facility] CLIA [id number] [address] [place] [address] [place] #### 65428-0 #### [facility] CLIA [id number] [address] [place] [address] LAB CLIA [id number] [address] [place] [address] T4 Free [facility] Free T4 [Mass/Vol] 1.6 ng/dL Normal 0.9-1.7 [facility] Comment on above: Order Comment: Speci men Type: BLOOD SPECIMEN Ordering Facility: [facility] Address: [address] [place] [address] Performed By: #### 3 051-0, 3024-7, DHEAS #### [facility] CLIA [id number] [address] [place] [address] #### 63930-9 #### [facility] CLIA [id number] [address] [place] [address] OF [facility] CLIA [id number] [address] [place], [place] [address] TSH SerPl-aCncon 09-20-2023 TSH Qn 1.480 m[IU]/L Normal 0.270-4.200 [facility] Comment on above: Order Comment: Speci men Type: BLOOD SPECIMENOrdering Facility: [facility] Address: [address] [place] [address] Result Comment: If t he patient is , TSH reference range varies by gestational period: First Trimester (weeks 9-12): 0.180-2.990 mIU/L Second Trimester: 0.110-3.980 mIU/L Third Trimester: 0.480-4.710 mIU/L Charanjit Zamora et al. A Practical Approach for the Verifications and Determination of Site- and Trimester-Specific Reference Intervals for Thyroid Function tests in . Thyroid, 2019:29:3:412-420. Mert Garcia et al. 2017 Guidelines of the [place] Thyroid Association for the Diagnosis and Management of Thyroid Disease during and the . Thyroid, 2017:27:3:315-389. Performed By: #### 3 016-3, 29868 ####[facility] [id number] [place] [id number] [place] Testost SerPl-mCncon 024 Testosterone [Mass/Vol] 23 ng/dL Normal <40 [facility] Comment on above: Order Comment: Speci men Type: BLOOD SPECIMENOrdering Facility: [facility] Address: [facility] [place] [address] Performed By: #### 3 016-3, 2988 ####[facility] [id number] [place] [id number] [place] Pre-Certification Formon Pre-Certification Form [id number]#1.00TIFF Normal [facility] Family Medicine Office/Clini c Noteon 08-09-2023 Family Medicine Office/Clinic Note Chief Complaint 2 month f/u HPI Staff Reason for Visit: 2 month f/u on pneumonia. Pt states she is feeling better from the pneumonia, but caught something else a couple days later with another cough and congestion. pt states cough is gone, but congestion and drainage are still present Breathing: Has improved Fatigue: about the same Depression: Bipolar, screening not required BRIANNE: N/A Last Labs done: 06/25/2023 Covid Vaccine: yes Flu Vaccine: Yes Smoker: Non smoker Pap (21-64yo): Due History of Present Illness Ilda Viera is a 38-year-old female who is here for a follow-up evaluation. She is accompanied by her son. The patient recovered from pneumonia 2 months ago, but subsequently contracted a likely viral cough and congestion. Her breathing has improved, but her fatigue levels remains the same. She is due for a Pap smear. Her vital signs have been checked, and she has lost about 3 pounds since her visit in 05/2023. She had hematology laboratory tests done and urine tests on 07/25/2023, which were reviewed with hematology. She had an appointment with them on 08/05/[address] Ernandez. She was referred to them due to her frequent infections, pneumonia, and elevated protein laboratory. They are going to have a follow-up in 6 months. They may conduct a skeletal bone survey and myeloma laboratory. 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 They are going to recheck her laboratories in 6 months. All other tests appeared normal. They suspected a malar rash and possible rheumatology or autoimmune deficiency, but there does not look to be. They are going to refer back to me due to fatty liver. The patient was started on ferrous sulfate 325 mg once a day. The patient has a history of fatty liver, bipolar disorder, PCOS, and hypothyroidism. Sinus She does not think she has pneumonia anymore. She has sinus issues and dry cough. She notes she had been coughing at night a couple of weeks ago. She denies any fevers, chills, nausea, and vomiting. She mentions that she had been to an ENT where she had sinus scraping surgery in 2021, and has had 2 sinus infections since then. She often feels her sinus with mucus. She denies issues with swallowing food. She takes Flonase and Claritin daily. Fatty Liver She was informed that she has fatty liver and had an ultrasound on 07/01/2023. Weight Loss She was given phentermine by her electric shovel operator last year to help with weight loss, but she is unsure if it was effective. She exercised regularly when the weather was nice and attended [employer] for a while, but stopped when her children started school and the weather changed. She is interested in trying injectable medications if covered by her insurance. She is unsure if her cholesterol has been checked. She denies having a personal history of medullary thyroid cancer or being . Her last menstrual period was at the end of 06/2023. Blood Pressure Her blood pressure was elevated at 146/86 mmHg during her follow-up visit last Saturday, but she is not on any blood pressure medication. Bipolar Her bipolar is stable and she has no issues with her medications. She sees Nury Zaman. PCOS She has never been checked for diabetes. She is on metformin. Vital signs Blood pressure is 120/76 mmHg, heart rate is 94 beats per minute, respiration is 18 breaths per minute, BMI is 39, SpO2 level is 98 percent, weight is 217 pounds. Review of Systems The pertinent positive and negative findings are as noted in the HPI. Physical Exam Vitals & Measurements HR: 94(Peripheral) RR: 18 BP: 120/76 SpO2: 98% HT: 62 in HT: 158 cm WT: 98.9 kg WT: 217.58 lb BMI: 39.62 General: Alert, no acute distress, well appearing, morbidly obese, pleasant female with her son at bedside who is 5 years old Skin: Warm, dry, intact Head: No trauma, normocephalic Neck: Trachea midline, no adenopathy, no tenderness Eye: Normal conjunctiva, sclera clear, PERRLA ENMT: some serous clear fluid bulging bilateral TMs, nasal septum erythematous and thin with clear drainage, moist mucous membranes, normal dentition Cardiovascular: Regular rate and rhythm, normal peripheral perfusion, no edema Respiratory: Lungs CTA, respirations non labored Chest wall: No deformity, nontender Gastrointestinal: Soft, non-distended, no tenderness, no guarding Back: No tenderness, normal ROM, normal alignment Extremities: No deformity, no trauma Neurological: Oriented x 4, LOC appropriate for age, CN II-XII intact, motor strength equal & normal bilaterally, sensation equal & normal bilaterally, speech normal Psychiatric: Cooperative, normal judgement, normal psychiatric thoughts, slight flat affect noted Labs from 06/25/2023 were reviewed. WBC count 10.6 x 109/L, glucose 90 mg/dL, BUN 11 mg/dL, creatinine 0.9 mg/dL, GFR 84 ml/min, total protein up 8.4 g/dL, ALT within normal limits now 36 IU/L, was elevated at 51 IU/L, AST 25 U/L, rest of the electrolytes (more content not included)... Normal [facility] Comment on above: Result Comment: Elec tronically Signed By: Linda Lutz\.br\Date and Time Signed: 08/09/23 17:30 EST\.br\Electronically Co-Signed By: Slime Wilhelm\.br\Date and Time Co-Signed: 08/08/23 13:45 EST Ambulatory Visit Summaryon 0 08-08-2023 Ambulatory Visit Summary ILDA VIERA :1985 Visit Date:08/08/2023 Ambulatory Visit Instructions Your Diagnosis Obesity (BMI 30-39.9) Bipolar disorder Hypothyroid Polycystic ovary syndrome Fatty liver Elevated blood pressure reading without diagnosis of hypertension Your Care Team Attending Physician - Linda Lutz Primary Care Physician - Linda Lutz This Is Your Medications List tirzepatide (Mounjaro 2.5 mg/0.5 mL subcutaneous solution) Contact prescribing physician if questions or concerns albuterol (Albuterol (Eqv-ProAir HFA) 90 mcg/inh inhalation aerosol) cholecalciferol (cholecalciferol 50,000 intl units oral capsule) fluticasone nasal (fluticasone 0.05 mg/inh Nasal [place]) lamotrigine (lamotrigine 150 mg Tab) levothyroxine (Levoxyl 137 mcg (0.137 mg) oral tablet) metformin (metformin 1000 mg Tab) ondansetron (ondansetron 4 mg Tab) tizanidine (tiZANidine 4 mg Tab) trazodone (traZODONE 100 mg Tab) [Image Removed: STOP]Stop taking these medications doxycycline (doxycycline hyclate 100 mg Cap) predniSONE (predniSONE 10 mg Tab) Procedures Performed Ethmoidectomy and turbinectomy (12/07/2021), Dental (02/28/2017), Cholecystectomy (2007). Discharge Vitals Heart Rate (Peripheral) 94 Respiratory Rate 18 Blood Pressure 120/76 Height 158 cm Height 62 in Weight 98.9 kg Weight 217.58 lb BMI 39.62 What to do next Scheduled Follow-Up Appointments Saturday 3:00 PM EDT Where: [facility] Medications What How Much When Why Instructions New tirzepatide (Mounjaro 2.5 mg/ 0.5 mL subcutaneous solution) 2.5 Milligram Subcutaneous Every week Obesity (BMI 30-39.9) Hypothyroid Polycystic ovary syndrome Fatty liver Elevated blood pressure reading without diagnosis of hypertension Refills: 1 Pickup at [facility]/pharmacy #[id number] Unchanged albuterol (Albuterol (Eqv-ProAir HFA) 90 mcg/ inh inhalation aerosol) 2 Puffs Inhalation Every 4 hours Bronchitis Persistent cough for 3 weeks or longer Morbid obesity with BMI of 40.0-44.9, adult Contact prescribing physician if questions or concerns Unchanged cholecalciferol (cholecalciferol 50,000 intl units oral capsule) 1 Capsules By Mouth Every 7 days Contact prescribing physician if questions or concerns Unchanged fluticasone nasal (fluticasone 0.05 mg/ inh Nasal [place]) 1 Sprays Nasal Inhalation Every day as needed for Allergy symptoms Contact prescribing physician if questions or concerns Unchanged lamotrigine (lamotrigine 150 mg Tab) 2 Tablets By Mouth Every day Contact prescribing physician if questions or concerns Unchanged levothyroxine (Levoxyl 137 mcg (0.137 mg) oral tablet) 1 Tablets By Mouth Every day Contact prescribing physician if questions or concerns Unchanged metformin (metformin 1000 mg Tab) 1 Tablets By Mouth 2 times a day Contact prescribing physician if questions or concerns Unchanged ondansetron (ondansetron 4 mg Tab) 1 Tablets By Mouth Every 8 hours as needed for Nausea/Vomiting Contact prescribing physician if questions or concerns Unchanged tizanidine (tiZANidine 4 mg Tab) 1 Tablets By Mouth At bedtime Contact prescribing physician if questions or concerns Unchanged trazodone (traZODONE 100 mg Tab) See instructions 0.5-1 tab po qHS Contact prescribing physician if questions or concerns Pharmacy Information [facility]/pharmacy #[id number]: [address] [place], [place] [id number] [phone] What How Much When Comments Stop Taking doxycycline (doxycycline hyclate 100 mg Cap) 1 Capsules By Mouth 2 times a day Stop Taking predniSONE (predniSONE 10 mg Tab) 1 Tablets By Mouth As Directed Take 4 tabs for 3 days, 3 tabs for 3 days, 2 tabs for 3 days, 1 tab for 3 days. Allergies Nubain (Hallucination, hallucin) Problems Ongoing - Any problem that you are currently receiving treatment for. Androgen level above reference range Bipolar disorder Current non-smoker Depressive disorder in mother complicating Elevated blood pressure reading without diagnosis of hypertension Fatigue Fatty liver High risk High serum testosterone Hyperinsulinemia Hypothyroid Maternal obesity complicating , childbirth and the puerperium, antepartum Obesity (BMI 30-39.9) Obesity caused by energy imbalance Polycystic ovary syndrome Recurrent sinusitis Serum testosterone level outside reference range Sinusitis Vitamin D deficiency Wellness examination Historical - Any problem that you are no longer receiving treatment for. Alopecia areata Anemia Bipolar 1 disorder, manic, mild Depression Endogenous hyperlipidemia Migraine Positive urine drug screen benzoid Patient Survey You may receive a survey via text or e-mail asking about your office visit. Please share your experience with us by completing your survey. We appreciate your fe (more content not included)... Normal [facility] Patient Educationon 08-08-19 Patient Education Endocrinology Hypothyroidism Hypothyroidism is when the thyroid gland does not make enough of certain hormones. This is called an underactive thyroid. The thyroid gland is a small gland located in the lower front part of the neck, just in front of the windpipe (trachea). This gland makes hormones that help control how the body uses food for energy (metabolism) as well as how the heart and brain function. These hormones also play a role in keeping your bones strong. When the thyroid is underactive, it produces too little of the hormones thyroxine (T4) and triiodothyronine (T3). What are the causes? This condition may be caused by: ? Giselle's disease. This is a disease in which the body's disease-fighting system (immune system) attacks the thyroid gland. This is the most common cause. ? Viral infections. ? . ? Certain medicines. ? defects. ? Problems with a gland in the center of the brain (pituitary gland). ? Lack of enough iodine in the diet. Other causes may include: ? Past radiation treatments to the head or neck for cancer. ? Past treatment with radioactive iodine. ? Past exposure to radiation in the environment. ? Past surgical removal of part or all of the thyroid. What increases the risk? You are more likely to develop this condition if: ? You are female. ? You have a family history of thyroid conditions. ? You use a medicine called lithium. ? You take medicines that affect the immune system (immunosuppressants). What are the signs or symptoms? Common symptoms of this condition include: ? Not being able to tolerate cold. ? Feeling as though you have no energy (lethargy). ? Lack of appetite. ? Constipation. ? Sadness or depression. ? Weight gain that is not explained by a change in diet or exercise habits. ? Menstrual irregularity. ? Dry skin, coarse hair, or brittle nails. Other symptoms may include: ? Muscle pain. ? Slowing of thought processes. ? Poor memory. How is this diagnosed? This condition may be diagnosed based on: ? Your symptoms, your medical history, and a physical exam. ? Blood tests. You may also have imaging tests, such as an ultrasound or MRI. How is this treated? This condition is treated with medicine that replaces the thyroid hormones that your body does not make. After you begin treatment, it may take several weeks for symptoms to go away. Follow these instructions at home: ? Take ohqx-hze-wkhyjtv and prescription medicines only as told by your health care provider. ? If you start taking any new medicines, tell your health care provider. ? Keep all follow-up visits as told by your health care provider. This is important. ? As your condition improves, your dosage of thyroid hormone medicine may change. ? You will need to have blood tests regularly so that your health care provider can monitor your condition. Contact a health care provider if: ? Your symptoms do not get better with treatment. ? You are taking thyroid hormone replacement medicine and you: ? Sweat a lot. ? Have tremors. ? Feel anxious. ? Lose weight rapidly. ? Cannot tolerate heat. ? Have emotional swings. ? Have diarrhea. ? Feel weak. Get help right away if: ? You have chest pain. ? You have an irregular heartbeat. ? You have a rapid heartbeat. ? You have difficulty breathing. These symptoms may be an emergency. Get help right away. Call 911. ? Do not wait to see if the symptoms will go away. ? Do not drive yourself to the hospital. Summary ? Hypothyroidism is when the thyroid gland does not make enough of certain hormones (it is underactive). ? When the thyroid is underactive, it produces too little of the hormones thyroxine (T4) and triiodothyronine (T3). ? The most common cause is Giselle's disease, a disease in which the body's disease-fighting system (immune system) attacks the thyroid gland. The condition can also be caused by viral infections, medicine, , or past radiation treatment to the head or neck. ? Symptoms may include weight gain, dry skin, constipation, feeling as though you do not have energy, and not being able to tolerate cold. ? This condition is treated with medicine to replace the thyroid hormones that your body does not make. This information is not intended to replace advice given to you by your health care provider. Make sure you discuss any questions you have with your health care provider. Document Revised: 07/10/2022 Document Reviewed: 07/10/2022 [employer] Patient Education ? 2022 [employer] Gastroenterology Nonalcoholic Fatty Liver Disease Diet, Adult Nonalcoholic fatty liver disease is a condition that causes fat to build up in and around the liver. The disease makes it harder for the liver to work the way that it should. Following a healthy diet can help to keep nonalcoholic fatty liver disease under control. It can also help to prevent or improve conditions that (more content not included)... [facility] Consent for Treatmenton 07-22 Consent for Treatment [id number] [facility] Oncology Noteon 08-05-2023 Oncology Note Oncology Care Coordi nator Office Visit/Treatment Note Current Patient Status/Reason: Pt in for scheduled clinic visit, diagnosis of elevated proteins. I accompanied Dr. Ernandez in room. explained lab values and meaning for same. Treatment Plan: Ferrous Sulfate 325 mg PO daily. Labs-HOMERO, RF, CBC, Multiple Myeloma labs, CMP, iron studies, B12 in 6 months. Follow-Up Appointment Info/Referrals: F/U in 7 months. Resources Offered:I instructed in outpt labs when and where with understanding voiced. I instructed in OTC iron and gave her written information about the same with understanding voiced. [facility] Comment on above: Result Comment: Elec tronically Signed By: Donna POWER, Gianna\.br\Date and Time Signed: 08/05/23 15:23 EST Oncology Progress Noteon Oncology Progress Note Patient: ILDA VIERA Age: 38 years Sex: Female : 1985 Associated Diagnoses: None Author: Awais BAI, Dyan Cid Chief Complaint Elevated total protein and recurrent infections History of Present Illness Emma is a 38-year-old nice lady with a history of polycystic ovarian syndrome who has been taking metformin for that and has been having about 4 or strep throat a year almost yearly and who recently had a pneumonia beginning of May 2023 required use of prednisone and doxycycline was referred to our hematology clinic to be evaluated for elevated total protein found on recent labs done on 05/29/2023 with total protein of 8.5 but with normal albumin, normal globulin, normal hemoglobin creatinine and calcium level as well. At that time she had the pneumonia and she was treated with the prednisone her total WBCs was 14,000 mainly on neutrophils. Absolute lymphocyte count was normal. Her labs revealed elevated AST of 51. Patient never drank alcohol and denied tobacco smoking as well. She had 7 total pregnancies and 5 alive kids with 2 miscarriages and 11 weeks and 8 weeks. She never had thrombotic events. Last time she was checked for HIV during her last was in 2018. She is not aware of having or ever had been tested for hepatitis B or C as well. She has been with the same sexual partner for years as well. On review of system patient stated that she has joint pain especially in her fingers and they get puffy at times. Patient stated that she wheezes when she had cough and she has been coughing for 2 months from April 2023 till initial consult visit on 06/25/2023. She denied chest pain or shortness of breath unless she exerts herself. She has red cheeks and she is not sure of her grandma had SLE. Her mom had osteoarthritis and is not aware of anybody had other rheumatological diseases. Her maternal grandmother had bladder cancer. 08/05/23: She is here for the results of the labs from 3 weeks ago as an evaluation for the elevated total protein, recurrent infections, malar rash, and elevated liver function test. She is taking her high-dose vitamin D as recommended by her primary care physician. He denies any new complaints. Labs on 06/25/2023 revealed normal CBC with a white count of 10.6, hemoglobin 12.6, platelet 430. Creatinine is normal 0.9 and calcium is normal 9.5. LFTs alk phos is 89, ALT 36 AST 25 total protein is elevated again 8.4. Uric acid is 6.7. The iron is 59 and the iron saturation 14% below TIBC is high 425 and ferritin is 60. Folate is over 22. TSH 1.88 and free T40.92. Immunoglobulins revealed IgA less than 5 which can explain recurrent respiratory infections, IgE is 16 which is low normal. IgM is normal 158, whereas the IgA is normal is high in 1848. Monoclonal protein not observed in the serum. C ANCA and P ANCA were negative and the HOMERO was negative and rheumatoid factor was normal 10.6. Angiotensin-converting enzyme was normal at 41. 24-hour urine protein was normal and urinary M spike was not observed. Skeletal bone survey was negative for lytic bone lesions. Ultrasound of the liver revealed hepatomegaly with hepatic steatosis and cholecystectomy. The liver was 25.4 cm. 14 point systems were reviewed and are negative. Review of Systems Constitutional: Fatigue, No fever, No chills. Eye: Negative. Ear/Nose/Mouth/Throat: Negative. Respiratory: Cough, Wheezing, No shortness of breath, No hemoptysis. Cardiovascular: No chest pain, No palpitations. Gastrointestinal: Negative. Genitourinary: Negative. Hematology/Lymphatics: Negative, No bruising tendency. Endocrine: Negative. Immunologic: Negative. Musculoskeletal: Joint pain, Joint pain of her fingers.. Integumentary: Red cheeks.. Neurologic: Alert and oriented X4. Psychiatric: Negative. ROS reviewed as documented in chart Health Status Allergies: Allergic Reactions (Selected) Severity Not Documented Nubain- Hallucin and hallucination. Current medications: Home Medications (11) Active Albuterol (Eqv-ProAir HFA) 90 mcg/inh inhalation aerosol 2 puff(s), Inhalation, q4hr cholecalciferol 50,000 intl units oral capsule 1,250 mcg = 1 cap(s), Oral, q7day doxycycline hyclate 100 mg Cap 100 mg = 1 cap(s), Oral, BID fluticasone 0.05 mg/inh Nasal [place] 1 spray(s), PRN, Nasal, Daily lamotrigine 150 mg Tab 300 mg = 2 tab(s), Oral, Daily Levoxyl 137 mcg (0.137 mg) oral tablet 137 mcg = 1 tab(s), Oral, Daily metformin 1000 mg Tab 1,000 mg = 1 tab(s), Oral, BID ondansetron 4 mg Tab 4 mg = 1 tab(s), PRN, Oral, q8hr predniSONE 10 mg Tab 10 mg = 1 tab(s), Oral, As Directed tiZANidine 4 mg Tab 4 mg = 1 tab(s), Oral, Bedtime traZODONE 100 mg Tab See Instructions , No qualifying data available Problem list: All Problems Acute sinusitis with symptoms > 10 days / SNOMED CT 78496971 / Confirmed Acute sinusitis / SNOMED CT 78394504 / Confirmed Androgen level above reference range / SNOMED CT 43105971 (more content not included)... Invalid Interpretation Code ? Continue to follow with Nury Emily in behavioral health at [facility] U24 Prot Electon 07-29-2023 Albumin Elph (24H U) [Mass fraction] 37.1 % Invalid Interpretation Code [facility] Comment on above: Performed By: #### 2 [id number], [id number], [id number] #### [facility] [address] [place] [address] Alpha 1 globulin Elph (24H U) [Mass fraction] 2.0 % Invalid Interpretation Code [facility] Comment on above: Performed By: #### 2 741503, [id number], [id number] #### [facility] [address] [place] [address] Alpha 2 globulin Elph (24H U) [Mass fraction] 15.2 % Invalid Interpretation Code [facility] Comment on above: Performed By: #### 2 [id number], [id number], [id number] #### [facility] [address] [place] [address] Beta globulin Elph (24H U) [Mass fraction] 31.0 % Invalid Interpretation Code [facility] Comment on above: Performed By: #### 2 589144, [id number], [id number] #### [facility] [address] [place] [address] Gamma globulin Elph (24H U) [Mass fraction] 14.7 % Invalid Interpretation Code [facility] Comment on above: Performed By: #### 2 914814, [id number], [id number] #### [facility] [address] [place] [address] Laboratory comment Jone (Report) Comment Invalid Interpretation Code [facility] Comment on above: Result Comment: Prot ein electrophoresis scan will follow via computer, mail, or library science professor delivery. Performed at: [facility] [address] [place], [place] [id number] PhD Blu Grubbs Performed By: #### 2 019039, [id number], [id number] #### [facility] [address] [place] [address] Protein (24H U) [Mass/Time] 41 mg/24hr Invalid Interpretation Code 30-150 [facility] Comment on above: Performed By: #### 2 364048, [id number], [id number] #### [facility] [address] [place] [address] Protein (U) [Mass/Vol] 11.8 mg/dL Invalid Interpretation Code Not Estab. [facility] Comment on above: Performed By: #### 2 914536, [id number], [id number] #### [facility] [address] [place] [address] Protein.monoclonal Elph (24H U) [Mass fraction] Not Observed Invalid Interpretation Code Not Observed [facility] Comment on above: Performed By: #### 2 318889, [id number], [id number] #### [facility] [address] [place] [address] Physician Orderon 07-25-2023 Physician Order [id number] Normal [facility] Reference Laboratory Testing Ordered By: Linda Samuel on 07-25-2023 Hrs Breonna Ref Lab 24 h Invalid Interpretation Code [facility] SendOutsSS Specimen volume Unsp time (U) 350 mL Invalid Interpretation Code [facility] SendOutsSS Urine Vol/Per Ref Labon Hrs Breonna Ref Lab 24 hour(s) Invalid Interpretation Code [facility] Comment on above: Order Comment: Order added by Discern Expert Performed By: #### 2 [id number] #### [facility] [address] [place] [address] Specimen volume Unsp time (U) 350 mL Invalid Interpretation Code [facility] Comment on above: Order Comment: Order added by Discern Expert Performed By: #### 2 [id number] #### [facility] [address] [place] [address] Consent for Treatmenton 06-21 Consent for Treatment [id number] Normal [facility] XR Bone Survey Completeon XR Bone Survey Complete Exam Date/Time: 07/05/2023 13:39 EST Reason for Exam: R77.9;Other (please specify) Report IMPRESSION: No destructive or lytic lesions radiographically. EXAMINATION/TECHNIQUE: XR Bone Survey Complete HISTORY: Abnormal lab work. COMPARISON: Chest x-ray 05/29/2023. RESULT: No destructive or lytic lesions radiographically. No acute osseous findings. No significant degenerative changes. Surgical clips right upper quadrant. Lungs unremarkable. Soft tissues unremarkable radiographically. No other significant abnormality. Ordering Provider: Dyan Ernandez FINAL REPORT Dictated: 07/05/2023 2:52 pm Fermin Valdez MD. Signed (Electronic Signature): 07/05/2023 2:52 pm Signed by: Fermin Valdez MD Transcribed by: GLENN Technologist: AMY Technical Comments Radiation Dose: Ka,r in mGy = na DAP = na Normal [facility] Immunoglobs. A/E/G/Mon 07-04 IgA Quant Duplicate Invalid Interpretation Code [facility] Comment on above: Performed By: #### 2 [id number] #### [facility] [address] [place] [address] IgG Quant Duplicate Invalid Interpretation Code [facility] Comment on above: Performed By: #### 2 126733 #### [facility] [address] [place] [address] IgM Quant Duplicate Invalid Interpretation Code [facility] Comment on above: Performed By: #### 2 857916 #### [facility] [address] [place] [address] Consenton 07-01-2023 Consent [id number] Normal [facility] Consent for Treatmenton 06-21 Consent for Treatment [id number]#[id number] Normal [facility] US Liveron 07-01-2023 US Liver Exam Date/Time: 07/01/2023 09:38 EST Reason for Exam: R79.89;Elevated LFTs Report IMPRESSION: HEPATOMEGALY. HEPATIC STEATOSIS. CHOLECYSTECTOMY. CLINICAL HISTORY: Elevated LFTs, R79.89 COMPARISON: NONE. FINDINGS: Craniocaudal dimension of liver 25.4 cm. Liver is increased in echogenicity and normal in contour. No intrahepatic, and no extrahepatic ductal dilatation identified. Common duct measures 5 mm. Pancreas is obscured by overlying bowel gas. Gallbladder surgically absent. Ordering Provider: Dyan Ernandez FINAL REPORT Dictated: 07/01/2023 1:41 pm Terrance Dubois MD Signed (Electronic Signature): 07/01/2023 1:41 pm Signed by: Terrance Dubois MD Transcribed by: GLENN Technologist: TRU Scruggs [facility] .Interpretation:on 3 HCV Ab IA Ql Comment Invalid Interpretation Code [facility] Comment on above: Result Comment: Not infected with HCV unless early or acute infection is suspected (which may be delayed in an immunocompromised individual), or other evidence exists to indicate HCV infection. Performed at: [address] [id number] PhD Blu Grubbs Performed By: #### 2 [id number] #### [facility] [address] [place] [address] ACEon 06-30-2023 Angiotensin converting enzyme [Catalytic activity/Vol] 41 U/L Invalid Interpretation Code 1482 [facility] Comment on above: Result Comment: Perf ormed at: [address] [id number] PhD Blu Grubbs Performed By: #### 2 [id number] #### [facility] [address] [place] [address] HOMERO w/Reflex if POSon 2022 Nuclear Ab Ql (S) Negative Invalid Interpretation Code Negative [facility] Comment on above: Result Comment: Perf ormed at: [address] [id number] PhD Blu Grubbs Performed By: #### 2 510268 #### [facility] [address] [place] [address] ANCAon 06-30-2023 Neutrophil cytoplasmic Ab.classic IF (S) [Titer] <1:20 Invalid Interpretation Code Neg:<1:20 [facility] Comment on above: Performed By: #### 2 135481 #### [facility] [address] [place] [address] Neutrophil cytoplasmic Ab.perinuclear IF (S) [Titer] <1:20 Invalid Interpretation Code Neg:<1:20 [facility] Comment on above: Result Comment: The presence of positive fluorescence exhibiting P-ANCA or C-ANCA patterns alone is not specific for the diagnosis of Margi's Granulomatosis (WG) or microscopic polyangiitis. Decisions about treatment should not be based solely on ANCA IFA results. The [employer]CA [employer] Consensus recommends follow up testing of positive sera with both CO-3 and MPO-ANCA enzyme immunoassays. As many as 5% serum samples are positive only by EIA. Ref. AM J Clin Pathol 1999;111:507-513. Performed By: #### 2 [id number] #### [facility] [address] [place] [address] Neutrophil cytoplasmic Ab.perinuclear.atypic al IF (S) [Titer] <1:20 Invalid Interpretation Code Neg:<1:20 [facility] Comment on above: Result Comment: The atypical pANCA pattern has been observed in a significant percentage of patients with ulcerative colitis, primary sclerosing cholangitis and autoimmune hepatitis. Performed at: [facility] [id number] PhD Blu Grubbs Performed By: #### 2 507696 #### [facility] [address] [place] [address] B2 Microon 06-30-2023 Wcqx-5-Qcryjxjeraict [Mass/Vol] 1.9 ug/mL Invalid Interpretation Code 0.6-2.4 [facility] Comment on above: Result Comment: [facility] Immulite 2000 Immunochemiluminometric assay (ICMA) Values obtained with different assay methods or kits cannot be used interchangeably. Results cannot be interpreted as absolute evidence of the presence or absence of malignant disease. Performed at: [address] [id number] MD Chester Warner Performed By: #### 2 [id number] #### [facility] [address] [place] [address] Free K+L Lt Chains,Qn,Son Immunoglobulin light chains.kappa.free (S) [Mass/Vol] 24.8 mg/L High 3.3-19.4 [facility] Comment on above: Performed By: #### 2 826587 #### [facility] [address] [place] [address] Immunoglobulin light chains.kappa.free/Imm unoglobulin light chains.lambda.free (S) [Mass ratio] 1.11 Invalid Interpretation Code 0.26-1.65 [facility] Comment on above: Result Comment: Perf ormed at: [address] [id number] PhD Blu Grubbs Performed By: #### 2 994508 #### [facility] [address] [place] [address] Immunoglobulin light chains.lambda.free [Mass/Vol] 22.4 mg/L Invalid Interpretation Code 5.7-26.3 [facility] Comment on above: Performed By: #### 2 771611 #### [facility] [address] [place] [address] HCV Antibody RFX to Quant PC Joel 06-30-2023 HCV IgG IA Ql Non-Reactive Invalid Interpretation Code Non Reactive [facility] Comment on above: Result Comment: Perf ormed at: [facility] [address] [place], [place] [id number] PhD Blu Grubbs Performed By: #### 2 202954 #### [facility] [address] [place] [address] HIV Screen 4th Generation wR fxon 06-30-2023 HIV 1+2 Ab+HIV1 p24 Ag IA Ql Non-Reactive Invalid Interpretation Code Non Reactive [facility] Comment on above: Result Comment: HIV Negative HIV-1/HIV-2 antibodies and HIV-1 p24 antigen were NOT detected. There is no laboratory evidence of HIV infection. Performed at: [address] [id number] PhD Blu Grubbs Performed By: #### 2 [id number] #### [facility] [address] [place] [address] Hep A IgMon 06-30-2023 HAV IgM IA Ql Negative Invalid Interpretation Code Negative [facility] Comment on above: Result Comment: Perf ormed at: [address] [id number] PhD Blu Grubbs Performed By: #### 2 [id number] #### [facility] [address] [place] [address] Hep B Core Ab, IgMon 023 HBV core IgM IA Ql Negative Invalid Interpretation Code Negative [facility] Comment on above: Result Comment: Perf ormed at: [address] [id number] PhD Blu Grubbs Performed By: #### 2 329670 #### [facility] [address] [place] [address] Hep Bs Abon 06-30-2023 HBV surface Ab Ql (S) Non-Reactive Invalid Interpretation Code [facility] Comment on above: Result Comment: Non Reactive: Inconsistent with immunity, less than 10 mIU/mL Reactive: Consistent with immunity, greater than 9.9 mIU/mL Performed at: [address] [id number] PhD Blu Grubbs Performed By: #### 2 604388 #### [facility] [address] [place] [address] Hep Bs Agon 06-30-2023 HBV surface Ag IA Ql Negative Invalid Interpretation Code Negative [facility] Comment on above: Result Comment: Perf ormed at: [address] [id number] PhD Blu Grubbs Performed By: #### 2 984853 #### [facility] [address] [place] [address] MATT and PE, Serumon 06-30-20 23 Albumin [Mass/Vol] 4.1 g/dL Invalid Interpretation Code 2.9-4.4 [facility] Comment on above: Performed By: #### 2 904303 #### [facility] [address] [place] [address] Albumin/Globulin [Mass ratio] 1.1 {ratio} Invalid Interpretation Code 0.7-1.7 [facility] Comment on above: Performed By: #### 2 837554 #### [facility] [address] [place] [address] Alpha 1 globulin Elph [Mass/Vol] 0.2 g/dL Invalid Interpretation Code 0.0-0.4 [facility] Comment on above: Performed By: #### 2 327018 #### [facility] [address] [place] [address] Alpha 2 globulin Elph [Mass/Vol] 0.8 g/dL Invalid Interpretation Code 0.4-1.0 [facility] Comment on above: Performed By: #### 2 705775 #### [facility] [address] [place] [address] Beta globulin Elph [Mass/Vol] 1.1 g/dL Invalid Interpretation Code 0.7-1.3 [facility] Comment on above: Performed By: #### 2 305669 #### [facility] [address] [place] [address] Gamma globulin Elph [Mass/Vol] 1.7 g/dL Invalid Interpretation Code 0.4-1.8 [facility] Comment on above: Performed By: #### 2 518995 #### [facility] [address] [place] [address] Globulin (S) [Mass/Vol] 3.8 g/dL Invalid Interpretation Code 2.2-3.9 [facility] Comment on above: Performed By: #### 2 360025 #### [facility] [address] [place] [address] IgA [Mass/Vol] mg/dL Low 87-352 [facility] Comment on above: Result Comment: Resu lt confirmed on concentration. Performed By: #### 2 332708 #### [facility] [address] [place] [address] IgG [Mass/Vol] 1848 mg/dL High 586-1602 [facility] Comment on above: Performed By: #### 2 404015 #### [facility] [address] [place] [address] IgM [Mass/Vol] 158 mg/dL Invalid Interpretation Code [facility] Comment on above: Performed By: #### 2 806853 #### [facility] [address] [place] [address] Interpretation IEP [Interp] Comment Invalid Interpretation Code [facility] Comment on above: Result Comment: No m onoclonality detected. Performed By: #### 2 968373 #### [facility] [address] [place] [address] Laboratory comment Jone (Report) Comment Invalid Interpretation Code [facility] Comment on above: Result Comment: Prot ein electrophoresis scan will follow via computer, mail, or library science professor delivery. Performed at: [facility] [id number] PhD Blu Grubbs Performed By: #### 2 [id number] #### [facility] [address] [place] [address] Protein [Mass/Vol] 7.9 g/dL Invalid Interpretation Code 6.0-8.5 [facility] Comment on above: Performed By: #### 2 [id number] #### [facility] [address] [place] [address] Protein.monoclonal Elph [Mass/Vol] Not Observed Invalid Interpretation Code Not Observed [facility] Comment on above: Performed By: #### 2 292172 #### [facility] [address] [place] [address] Immunoglobs. A/E/G/Mon 06-30 IgE Qn 16 International_Unit/mL Invalid Interpretation Code 6-495 [facility] Comment on above: Result Comment: Perf ormed at: [facility] [address] [id number] MD Chester Warner Performed By: #### 2 [id number] #### [facility] [address] [place] [address] RF Quanton 06-30-2023 Rheumatoid factor Qn 10.6 International_Unit/mL Invalid Interpretation Code <14.0 [facility] Comment on above: Result Comment: Perf ormed at: [facility] [address] [id number] PhD Blu Grubbs Performed By: #### 2 268495 #### [facility] [address] [place] [address] Auto Diffon 06-25-2023 Basophils/100 WBC (Bld) 0.5 % Normal 0.0-2.0 [facility] Comment on above: Order Comment: Order Added by Discern Expert. Performed By: #### 2 393004, 82935075, 31669285, 24938208, 4510282, 3681967225, 58827534, 2259348, 9489661, 7675551, 3753783, 880165422, 60621689, 7154506, 7117493, 2977886, 8361476, 27103570, 2919708268, 175671792, 5244090, 8099284, 8101401, 6734483, 7974873, 01578323, 4535047, 0200055402 #### [facility] [address] [place] [address] Basophils/Leukocytes Auto (Bld) [Pure # fraction] 0.0 E9/L Normal 0.0-0.2 [facility] Comment on above: Order Comment: Order Added by Discern Expert. Performed By: #### 2 707024, 03275776, 35613057, 35007520, 1932619, 0696582205, 09822827, 7882659, 6303658, 8245657, 7627358, 395937748, 61033660, 5534540, 3847094, 8558186, 2100839, 51461789, 6615429415, 441123991, 0317117, 6436376, 7245724, 9155500, 5880514, 33497709, 4291881, 0218842592 #### [facility] [address] [place] [address] Eosinophils/100 WBC (Bld) 3.0 % Normal 0.0-8.0 [facility] Comment on above: Order Comment: Order Added by Discern Expert. Performed By: #### 2 709929, 07801416, 60895181, 51844219, 7606264, 1760971442, 43156818, 1591241, 6009224, 4299536, 1622854, 122225962, 30498257, 4644754, 7980252, 9827616, 9316577, 86981279, 9249711539, 909841240, 5677018, 1095614, 4787006, 1433674, 8059057, 86254421, 3988538, 9893820050 #### [facility] [address] [place] [address] Eosinophils/Leukocyte s Auto (Bld) [Pure # fraction] 0.3 E9/L Normal 0.0-0.5 [facility] Comment on above: Order Comment: Order Added by Discern Expert. Performed By: #### 2 963455, 45316737, 56813322, 24461641, 3694756, 8795708563, 61884168, 9719456, 9148506, 2859348, 3719130, 065999158, 80591853, 8079379, 3238713, 9095286, 4370107, 17656875, 1089609639, 891987907, 6389707, 9448361, 5503430, 7712138, 1953910, 61201383, 7970074, 5813231625 #### [facility] [address] [place] [address] Lymphocytes/100 WBC (Bld) 34.8 % Normal 14.0-50.0 [facility] Comment on above: Order Comment: Order Added by Discern Expert. Performed By: #### 2 314983, 35243667, 11232231, 49721232, 2029605, 5440510068, 00288923, 6052228, 3399333, 5390875, 3204798, 763990093, 30593691, 6426542, 2067319, 0322683, 4133042, 25723434, 0969825878, 288684217, 8562003, 4161004, 8924491, 7369401, 1795848, 65364513, 1646672, 4088702115 #### [facility] [address] [place] [address] Lymphocytes/Leukocyte s Auto (Bld) [Pure # fraction] 3.7 E9/L Normal 1.0-4.0 [facility] Comment on above: Order Comment: Order Added by Discern Expert. Performed By: #### 2 254752, 74564254, 02994151, 70532622, 2012215, 9540244338, 44544923, 4180254, 9770662, 4981208, 9816218, 355058072, 18804364, 7201237, 8923562, 5936395, 2001836, 30411032, 3714885008, 183061889, 3737459, 9981761, 1729590, 4633113, 4596579, 57757403, 3310782, 4038801860 #### [facility] [address] [place] [address] Monocytes/100 WBC (Bld) 8.8 % Normal 4.0-14.0 [facility] Comment on above: Order Comment: Order Added by Discern Expert. Performed By: #### 2 805071, 13683882, 46963719, 13502576, 2048701, 4340765257, 70246210, 1609195, 5376263, 6745243, 0213147, 718448096, 01722626, 0371180, 3121620, 0588464, 3692820, 34119312, 9453880546, 671816358, 0613300, 6500664, 6357026, 8101569, 1519706, 23940232, 1220738, 6194179281 #### [facility] [address] [place] [address] Monocytes/Leukocytes Auto (Bld) [Pure # fraction] 0.9 E9/L Normal 0.2-1.0 [facility] Comment on above: Order Comment: Order Added by Discern Expert. Performed By: #### 2 326910, 29423073, 69969980, 97702265, 0354528, 7458445887, 70676415, 3219880, 4556569, 7586792, 3818715, 050376165, 60374863, 8397053, 2412205, 7208009, 8338881, 23077771, 9933788140, 960094927, 2498837, 3183623, 6141392, 8882072, 5411219, 86068363, 1609617, 2268303526 #### [facility] [address] [place] [address] Neutrophils/100 WBC (Bld) 52.9 % Normal 36.0-75.0 [facility] Comment on above: Order Comment: Order Added by Discern Expert. Performed By: #### 2 440399, 60956356, 98028906, 59228793, 3116036, 9654112204, 60265480, 1866621, 8089575, 9347765, 8670317, 861561482, 51166051, 8386688, 9363830, 0001288, 9624976, 64755517, 7469829259, 749218002, 0254338, 0038968, 1780601, 6790840, 4383717, 83829480, 3284383, 3430991446 #### [facility] [address] [place] [address] Neutrophils/Leukocyte s Auto (Bld) [Pure # fraction] 5.6 E9/L Normal 2.0-7.5 [facility] Comment on above: Order Comment: Order Added by Discern Expert. Performed By: #### 2 881867, 09029817, 54274570, 61004444, 7797743, 6322322579, 86221681, 4524732, 4897055, 1843280, 6949159, 137733943, 89319265, 5817277, 8195901, 6278298, 8639495, 32021493, 8223001857, 298597384, 1595611, 8024821, 9575236, 4090309, 9323211, 98553276, 1097116, 1455198081 #### [facility] [address] [place] [address] CBC w/ Auto Diffon 3 Erythrocyte distribution width (RBC) [Ratio] 13.7 % Normal 10.9-14.2 [facility] Comment on above: Performed By: #### 2 454301, 29389376, 34670473, 12560846, 4052122, 1975396476, 66972023, 3257789, 5877758, 3972357, 3785065, 391052572, 34712921, 8091776, 4816701, 2205949, 6043234, 04167384, 8746307992, 363596115, 7610458, 4218579, 3708905, 4601350, 1799666, 65436554, 7605659, 0126708300 #### [facility] [address] [place] [address] Hematocrit (Bld) [Volume fraction] 37.2 % Normal 34.0-46.0 [facility] Comment on above: Performed By: #### 2 020382, 66249286, 03483125, 33520516, 0728144, 5275239191, 97494011, 3123328, 7581510, 9196468, 5970687, 561328890, 94333510, 2054671, 7794943, 9853216, 7429903, 26127793, 2828245262, 041836484, 2727367, 1695679, 6355429, 5193842, 5866731, 34452956, 9192591, 2814334689 #### [facility] [address] [place] [address] Hemoglobin (Bld) [Mass/Vol] 12.6 g/dL Normal 12.0-16.0 [facility] Comment on above: Performed By: #### 2 755055, 74582932, 26496530, 60712158, 4337019, 7212794421, 74045362, 9101294, 7496166, 8747541, 6193769, 070082394, 55716874, 5866095, 5165180, 5285095, 7056349, 33129416, 4478248632, 331714203, 6931647, 7822870, 2705147, 7430310, 5917079, 51145335, 8078286, 6411047667 #### [facility] [address] [place] [address] MCH (RBC) [Entitic mass] 29.2 pg Normal 27.0-34.0 [facility] Comment on above: Performed By: #### 2 805598, 93215999, 86764603, 92436190, 8582286, 7419627726, 94796301, 4131315, 7122388, 4725763, 4594843, 159534521, 53584254, 1176359, 6775416, 2994438, 1653403, 17825020, 9561136413, 916952062, 2087170, 2138313, 3856956, 1418079, 8026442, 15405848, 4013823, 6743274232 #### [facility] [address] [place] [address] MCHC (RBC) [Mass/Vol] 33.8 g/dL Normal 31.4-36.0 [facility] Comment on above: Performed By: #### 2 709257, 76935754, 61298487, 65183890, 6025782, 4551557037, 93727993, 7156682, 1606823, 6618733, 9691693, 450438965, 54807588, 6033416, 6768798, 3165073, 2518362, 53059953, 2261857597, 011275912, 4251391, 5667853, 0401832, 7745585, 7889779, 41362260, 2071231, 9735871857 #### [facility] [address] [place] [address] MCV (RBC) [Entitic vol] 86.2 fL Normal 80.0-100.0 [facility] Comment on above: Performed By: #### 2 505894, 39448748, 22162147, 46387410, 1216412, 2109717964, 28071251, 8066881, 4846538, 0007960, 1808991, 021586729, 36218752, 2006214, 7703282, 1681678, 0395443, 77071066, 3783906560, 149250870, 5373393, 4657382, 4755814, 9727489, 2176183, 10280918, 5529428, 0848492521 #### [facility] [address] [place] [address] Platelet mean volume (Bld) [Entitic vol] 7.1 fL Normal 6.4-10.8 [facility] Comment on above: Performed By: #### 2 675884, 88960121, 27123614, 38479065, 3968885, 3241553067, 52460461, 2714103, 4909058, 4042452, 6946351, 698446288, 01584200, 4904118, 4359300, 8199468, 9222485, 81368746, 4820862002, 243276868, 3412787, 5673951, 3649287, 0791731, 4797141, 95629600, 6963679, 3519694813 #### [facility] [address] [place] [address] Platelets (Bld) [#/Vol] 430.0 E9/L Normal 150.0-500.0 [facility] Comment on above: Performed By: #### 2 158538, 34683716, 42796686, 97893972, 1246549, 5445440296, 37200837, 4397026, 0649571, 2099912, 7241483, 036401174, 27367004, 2088172, 9069090, 8307676, 5253715, 51793680, 9659528645, 896032440, 4669508, 3224044, 6758912, 4391701, 7223960, 89889363, 4655447, 5495701430 #### [facility] [address] [place] [address] RBC (Bld) [#/Vol] 4.3 E12/L Normal 4.3-5.9 [facility] Comment on above: Performed By: #### 2 346130, 92999141, 60305743, 46114060, 4992194, 4488139986, 92783942, 8325800, 6381751, 8256928, 7936930, 658182712, 46841879, 8116344, 0726115, 2779657, 8544636, 60305863, 2686374233, 943457193, 7742731, 4171482, 6751737, 0483740, 1666272, 78415904, 7963035, 5045739652 #### [facility] [address] [place] [address] WBC corrected for nucl RBC Auto (Bld) [#/Vol] 10.6 E9/L Normal 4.0-11.0 [facility] Comment on above: Performed By: #### 2 246227, 86711672, 75747873, 44270676, 4651340, 3204981602, 13535620, 1368711, 1241863, 5486814, 3274576, 369559419, 27949737, 7142809, 8213294, 7382616, 8217362, 48603424, 8980335594, 019062678, 5884123, 9182198, 7315363, 1370787, 5760204, 06518317, 1688840, 2231756633 #### [facility] [address] [place] [address] CHEMISTRYOrdered By: SYSTEM SYSTEM on 06-25-2023 Albumin [Mass/Vol] 4.0 g/dL Normal 3.3 - 5.0 gm/dL [facility] Albumin/Globulin [Mass ratio] 0.9 {ratio} Low 1.1 - 2.2 [facility] ALP [Catalytic activity/Vol] 89 [iU]/d Normal 21 - 98 Int._Unit/L [facility] ALT No additional P-5'-P [Catalytic activity/Vol] 36 [iU]/d Normal 6 - 46 Int._Unit/L [facility] Anion gap [Moles/Vol] 12 mmol/L Normal 6 - 16 mEq/L [facility] AST [Catalytic activity/Vol] 25 [iU]/d Normal 5 - 43 Int._Unit/L [facility] Bilirubin [Mass/Vol] 0.2 mg/dL Normal 0.0 - 1 .1 mg/dL [facility] Calcium [Mass/Vol] 9.5 mg/dL Normal 8.9 - 11. 1 mg/dL [facility] Chloride [Moles/Vol] 101 mmol/L Normal 101 - 1 11 mmol/L [facility] CO2 [Moles/Vol] 27 mmol/L Normal 21 - 31 mmol/L [facility] Creatinine [Mass/Vol] 0.9 mg/dL Normal 0.5 - 1.3 mg/dL [facility] Ferritin [Mass/Vol] 60 ng/mL Normal 11 - 307 ng/mL [facility] Comment on above: Interpretive Data: N ORMALS MEN <30 YRS 16-132 ng/mL MEN >30 YRS 8-338 ng/mL WOMEN (PREMEN) 6-104 ng/mL WOMEN (POSTMEN) 12-210 ng/mL Folate [Mass/Vol] ng/mL Normal >=6.7ng/mL [facility] Re misol Free T4 [Mass/Vol] 0.92 ng/dL Normal 0.58 - 1. 64 ng/dL [facility] GFR/1.73 sq M.predicted among non-blacks MDRD (S/P/Bld) [Vol rate/Area] 84 mL/min/1.73 m2 Normal >=59mL/min/1 .73 m2 [facility] Chem S Comment on above: Interpretive Data: C hronic kidney disease could be indicated at eGFR's of less than 60 mL/min/1.73m2. Kidney failure is indicated at less than 15 mL/min/1.73m2. Globulin (S) [Mass/Vol] 4.4 g/dL High 1.4 - 4.0 gm/dL [facility] Glucose [Mass/Vol] 90 mg/dL Normal 55 - 199 mg/dL [facility] Comment on above: Interpretive Data: I f this glucose result represents a fasting glucose, interpretation should refer to the following reference range: 55-99 mg/dL Iron [Mass/Vol] 59 ug/dL Normal 35 - 153 mcg/dL [facility] Iron binding capacity [Mass/Vol] 425 ug/dL High 250 - 400 mcg/dL [facility] Iron saturation [Mass fraction] 14 % Low 20 - 50 % [facility] LDH [Catalytic activity/Vol] 184 [iU]/d Normal 93 - 218 Int._Unit/L [facility] Potassium [Moles/Vol] 4.0 mmol/L Normal 3.5 - 5.3 mmol/L [facility] Protein [Mass/Vol] 8.4 g/dL High 6.0 - 7.8 gm/dL [facility] Sodium [Moles/Vol] 136 mmol/L Normal 135 - 145 mmol/L [facility] Transferrin [Mass/Vol] 303 mg/dL Normal 200 - 370 mg/dL [facility] TSH Qn 1.88 m[IU]/L Normal 0.34 - 5.60 mcIU/mL [facility] Urate [Mass/Vol] 6.7 mg/dL Normal 2.2 - 7.4 mg/dL [facility] Urea nitrogen [Mass/Vol] 11 mg/dL Normal 5 - 21 mg/dL [facility] Urea nitrogen/Creatinine [Mass ratio] 12 mg/mg Normal 10 - 20 [facility] CMPon 06-25-2023 Albumin [Mass/Vol] 4.0 g/dL Normal 3.3-5.0 [facility] Comment on above: Performed By: #### 2 195307, 14341889, 12553469, 21509105, 3035570, 4098228097, 46030012, 4722057, 9197109, 4079427, 3362668, 004876937, 87008583, 3037336, 7078502, 4821174, 6987358, 68591200, 3590620368, 752369012, 4830893, 6989416, 0564579, 5987928, 0907583, 83708593, 2442665, 4743022198 ####[facility] [address] [place] [address] Albumin/Globulin (S) [Mass conc ratio] 0.9 Low 1.1-2.2 [facility] Comment on above: Performed By: #### 2 331895, 94352302, 19542328, 69737320, 8624155, 4991314382, 76188532, 9136470, 2537496, 1598787, 2930960, 774936799, 66464200, 0966297, 9837256, 6270062, 2039354, 85691775, 2949300941, 464466615, 6135857, 7770942, 8733916, 8606500, 3507974, 17608082, 1950667, 2863597172 ####[address] [place] [address] ALP [Catalytic activity/Vol] 89 Int._Unit/L Normal 21-98 [facility] Comment on above: Performed By: #### 2 180710, 37576589, 05564583, 15560188, 9571201, 2984949869, 28386886, 6920157, 6219991, 1210520, 8148429, 268785974, 87307148, 2471825, 1566989, 8968500, 5128895, 95891222, 2725457169, 938323143, 9320069, 3273325, 0754124, 2390599, 4945592, 08146338, 7414719, 7948041968 ####[address] [place] [address] ALT No additional P-5'-P [Catalytic activity/Vol] 36 Int._Unit/L Normal 6-46 [facility] Comment on above: Performed By: #### 2 380349, 03978248, 29147669, 85530758, 9404777, 4462365224, 76145162, 4840524, 0224170, 3401728, 8368773, 853063407, 99534253, 6688541, 7384981, 9158524, 8594635, 04326828, 2667642725, 835669633, 9748062, 0509737, 4075433, 1267804, 2556503, 81194882, 0375694, 2513375426 ####[address] [place] [address] Anion gap [Moles/Vol] 12 mmol/L Normal 6-16 [facility] Comment on above: Performed By: #### 2 067085, 35552761, 38289250, 12845572, 5244137, 0454806435, 23281492, 9384523, 5366583, 6388503, 8774514, 336672259, 31267790, 1052409, 2857152, 8174962, 6506043, 57228578, 6694536275, 363410445, 8350817, 9122012, 3101531, 4954919, 6996155, 79086939, 7939900, 3811600344 ####[address] [place] [address] AST [Catalytic activity/Vol] 25 Int._Unit/L Normal 5-43 [facility] Comment on above: Performed By: #### 2 938189, 18867742, 97375674, 99999433, 8849189, 4833671932, 14784171, 4962367, 9616663, 4600098, 5624017, 802628888, 65298506, 7117551, 2930213, 6966202, 0360662, 83687246, 2891948179, 334250710, 7010031, 0586462, 1771535, 5085502, 5777555, 45901751, 7618777, 4586042009 ####[facility] [address] [place] [address] Bilirubin [Mass/Vol] 0.2 mg/dL Normal 0.0-1.1 [facility] Comment on above: Performed By: #### 2 372574, 42103371, 56245128, 18608921, 4185325, 9693851965, 79386048, 3487610, 7391928, 8396259, 4012642, 978496388, 39823968, 2775428, 9854144, 5629241, 9089848, 39272968, 3551735643, 182400469, 7860936, 9241959, 5268614, 0065492, 1232588, 03452354, 0605759, 9624391559 ####[address] [place] [address] Calcium [Mass/Vol] 9.5 mg/dL Normal 8.9-11.1 [facility] Comment on above: Performed By: #### 2 804383, 05862821, 88416707, 86614696, 6243802, 3064801150, 60588351, 9558895, 1838402, 4294654, 9260217, 040720210, 99857828, 5075549, 9564678, 0674587, 5142059, 98496517, 1106289938, 591498068, 3035469, 8317083, 9444200, 0594665, 3542505, 46385991, 7701665, 3299334657 ####[facility] [address] [place] [address] Chloride [Moles/Vol] 101 mmol/L Normal 101-111 [facility] Comment on above: Performed By: #### 2 556264, 88224537, 40076274, 92116333, 7107125, 7544154402, 34361027, 4810873, 2836707, 1223541, 4238746, 961835926, 29640160, 8690423, 4907410, 8797116, 0168296, 43134806, 5613523681, 106392183, 6479083, 5449302, 8829168, 6941732, 5213808, 10143613, 9992383, 7298471038 ####[facility] [address] [place] [address] CO2 [Moles/Vol] 27 mmol/L Normal 21-31 [facility] Comment on above: Performed By: #### 2 827715, 79140912, 77451863, 01094639, 0470814, 5616489987, 21632631, 0853314, 7109776, 6162890, 5519218, 962314742, 02499878, 7159114, 4098138, 4059890, 3756324, 77789283, 7428658655, 868380690, 1932428, 9827927, 0129472, 6849052, 3060377, 78677319, 0054161, 5044389427 ####[facility] [address] [place] [address] Creatinine [Mass/Vol] 0.9 mg/dL Normal 0.5-1.3 [facility] Comment on above: Performed By: #### 2 689692, 24908937, 54994094, 50614436, 8622979, 1521678159, 12388987, 0816968, 6090192, 0853594, 9552948, 134834481, 69871032, 5139475, 4017320, 2542558, 2934168, 15233114, 5150235843, 777454717, 4088022, 8881105, 5858090, 9405925, 2342694, 01217331, 0795415, 2945142389 ####[facility] [address] [place] [address] Globulin (S) [Mass/Vol] 4.4 g/dL High 1.4-4.0 [facility] Comment on above: Performed By: #### 2 627586, 22405358, 14433551, 76219253, 2361907, 2246460226, 84719902, 6936686, 6841124, 4500890, 2864665, 319580913, 47233361, 9240631, 2282332, 3030388, 8530961, 69049441, 1841604501, 606764185, 2636814, 8833202, 7561028, 2978424, 8022966, 25286130, 3270825, 5147210463 ####[facility] [address] [place] [address] Glucose [Mass/Vol] 90 mg/dL Normal 55-199 [facility] Comment on above: Result Comment: If t his glucose result represents a fasting glucose, interpretation should refer to the following reference range: 55-99 mg/dL Performed By: #### 2 021225, 68272004, 00387228, 33559917, 9348494, 1802282794, 09721511, 6737319, 9771690, 9001451, 2765087, 390009523, 90992155, 9440710, 1876103, 3981245, 0772878, 61037124, 4252688811, 153401864, 3830052, 7749384, 6779866, 4329763, 6335247, 30447239, 1467883, 6796658077 ####[facility] [address] [place] [address] Potassium [Moles/Vol] 4.0 mmol/L Normal 3.5-5.3 [facility] Comment on above: Performed By: #### 2 614667, 49397004, 12406077, 39709825, 3996218, 3397681251, 87054289, 3332800, 2518598, 2993877, 1327265, 752747761, 58308989, 4215107, 2410096, 0230044, 0375291, 65898941, 9685644806, 331958822, 0254818, 4211934, 6702991, 4586531, 4227849, 01952209, 0119635, 0019302742 ####[address] [place] [address] Protein [Mass/Vol] 8.4 g/dL High 6.0-7.8 [facility] Comment on above: Performed By: #### 2 599880, 71697554, 04434281, 65712682, 9193084, 2824879227, 69371879, 6870841, 4061716, 8127814, 1817335, 245001630, 71491618, 4546250, 5677483, 2378312, 9539105, 37319517, 3614995502, 679670734, 3402471, 8718678, 4631259, 1456747, 9848749, 30059865, 3254089, 3641995486 ####[address] [place] [address] Sodium [Moles/Vol] 136 mmol/L Normal 135-145 [facility] Comment on above: Performed By: #### 2 016754, 72263638, 21883000, 68394933, 8486716, 6134339371, 67593947, 3755621, 2537730, 9110970, 7918184, 689907661, 20513502, 3102077, 1639813, 3307757, 9697046, 19755964, 3550254756, 381178558, 5466233, 2951472, 0778586, 1087051, 0074575, 76972091, 6110670, 0235501793 ####[address] [place] [address] Urea nitrogen [Mass/Vol] 11 mg/dL Normal 5-21 [facility] Comment on above: Performed By: #### 2 388539, 25976354, 52549632, 83574927, 4667577, 9861862921, 00305300, 0865246, 5204115, 8227536, 6961409, 397488039, 05709392, 0887280, 0293991, 1555749, 8022566, 64025753, 6502404488, 018667363, 5677478, 3314295, 7301411, 7993451, 4902825, 00421150, 1558053, 0282943864 ####[facility] [address] [place] [address] Urea nitrogen/Creatinine [Mass ratio] 12 No Units Normal 10-20 [facility] Comment on above: Performed By: #### 2 [id number], [id number], 82987998, 35204198, 5507059, 1596948852, 89906993, 4158550, 5833831, 0837078, 6797809, 405733197, 18475705, 4054516, 3269261, 0302562, 2484699, 93520084, 1489951571, 935229977, 1893686, 3743247, 0011710, 8553338, 2337394, 36284962, 2612795, [id number] ####[facility] [address] [place] [address] Consent for Treatmenton 0 Consent for Treatment [id number]#1.00TIFF Normal [facility] Consent for Treatment [id number] Normal [facility] Ferritinon 06-25-2023 Ferritin [Mass/Vol] 60 ng/mL Normal 11-307 [facility] Comment on above: Result Comment: NORM ALS MEN <30 YRS 16-132 ng/mL MEN >30 YRS 8-338 ng/mL WOMEN (PREMEN) 6-104 ng/mL WOMEN (POSTMEN) 12-210 ng/mL Performed By: #### 2 113718, [id number], 03342204, 36543115, 7380107, 9036319003, 32269116, 6786004, 7692630, 5486470, 5845328, 601507259, 71315519, 0361439, 0916081, 7869691, 6621694, 37474701, 7208832447, 409617817, 8358542, 7912222, 4978514, 2829752, 3431577, 44449755, 1517912, [id number] ####[address] [place] [address] Folateon 06-25-2023 Folate [Mass/Vol] ng/mL Normal >=6.7 [facility] Comment on above: Performed By: #### 2 286035, 22188599, 01443201, 22927670, 0604725, 6087686339, 69323984, 0822857, 1772840, 3591607, 4224472, 642342370, 13570953, 3454748, 3677284, 7167755, 5779940, 89773575, 2843242925, 080431723, 8942823, 1790452, 6422905, 8935636, 0868556, 51838333, 2760427, [id number] ####[address] [place] [address] Free T4on 06-25-2023 Free T4 [Mass/Vol] 0.92 ng/dL Normal 0.58-1.64 [facility] Comment on above: Performed By: #### 2 288163, 34729241, 70810856, 37369582, 0691757, 1875837723, 08780747, 2318975, 3508808, 0552638, 7102767, 280456206, 71250989, 3858407, 6067120, 6272266, 6292372, 72360264, 3857067520, 764487437, 4085996, 2536703, 8335571, 0403784, 9674730, 91937014, 1393318, [id number] ####[address] [place] [address] HEMATOLOGYOrdered By: SYSTEM SYSTEM on 06-25-2023 Basophils/100 WBC (Bld) 0.5 % Normal 0.0 - 2.0 % [facility] Basophils/Leukocytes Auto (Bld) [Pure # fraction] 0.0 E9/L Normal 0.0 - 0.2 E9/L [facility] Eosinophils/100 WBC (Bld) 3.0 % Normal 0.0 - 8.0 % [facility] Eosinophils/Leukocyte s Auto (Bld) [Pure # fraction] 0.3 E9/L Normal 0.0 - 0.5 E9/L [facility] Lymphocytes/100 WBC (Bld) 34.8 % Normal 14.0 - 50.0 % [facility]eAuto[facility] Lymphocytes/Leukocyte s Auto (Bld) [Pure # fraction] 3.7 E9/L Normal 1.0 - 4.0 E9/L [facility]SS Monocytes/100 WBC (Bld) 8.8 % Normal 4.0 - 14.0 % [facility] Monocytes/Leukocytes Auto (Bld) [Pure # fraction] 0.9 E9/L Normal 0.2 - 1.0 E9/L [facility] Neutrophils/100 WBC (Bld) 52.9 % Normal 36.0 - 75.0 % [facility] Neutrophils/Leukocyte s Auto (Bld) [Pure # fraction] 5.6 E9/L Normal 2.0 - 7.5 E9/L [facility] HEMATOLOGYOrdered By: Sally grant on 06-25-2023 Erythrocyte distribution width (RBC) [Ratio] 13.7 % Normal 10.9 - 14.2 % [facility] Hematocrit (Bld) [Volume fraction] 37.2 % Normal 34.0 - 46.0 % [facility] Hemoglobin (Bld) [Mass/Vol] 12.6 g/dL Normal 12.0 - 16.0 gm/dL [facility] MCH (RBC) [Entitic mass] 29.2 pg Normal 27.0 - 34.0 pg [facility] MCHC (RBC) [Mass/Vol] 33.8 g/dL Normal 31.4 - 36.0 gm/dL [facility] MCV (RBC) [Entitic vol] 86.2 fL Normal 80.0 - 100.0 fL [facility] Platelet mean volume (Bld) [Entitic vol] 7.1 fL Normal 6.4 - 10.8 fL [facility] Platelets (Bld) [#/Vol] 430.0 E9/L Normal 150.0 - 500.0 E9/L [facility] RBC (Bld) [#/Vol] 4.3 E12/L Normal 4.3 - 5.9 E12/L [facility] WBC corrected for nucl RBC Auto (Bld) [#/Vol] 10.6 E9/L Normal 4.0 - 11.0 E9/L [facility] Ironon 06-25-2023 Iron [Mass/Vol] 59 microgram/dL Normal 35-153 [facility] Comment on above: Performed By: #### 2 034105, 21431070, 75109338, 52327824, 6517956, 4087249603, 23191143, 6646994, 2802302, 8808065, 9305576, 312530888, 10883445, 0176494, 4245306, 5691663, 3090807, 85824815, 1375554843, 709229009, 3721620, 3976396, 4377517, 9945407, 8448900, 21149329, 5666054, 2196189061 ####[facility] [address] [place] [address] Iron Saturationon 06-25-2023 Iron binding capacity [Mass/Vol] 425 microgram/dL High 250-400 [facility] Comment on above: Performed By: #### 2 222241, 72827563, 13412036, 17374596, 1752038, 6047218266, 00676282, 4308342, 4379117, 5321866, 1853905, 791200638, 71552278, 4517209, 7549939, 5189661, 3359057, 94381112, 5639560079, 775756413, 0627508, 4782960, 6515173, 7187975, 0293323, 79151215, 3880709, 3453672621 ####[facility] [address] [place] [address] Iron saturation [Mass fraction] 14 % Low 20-50 [facility] Comment on above: Performed By: #### 2 726147, 03423858, 79698072, 32451434, 1002962, 4678589519, 56330787, 4644602, 8662137, 4260386, 2295262, 201006475, 91908318, 6275402, 1318783, 9989419, 0512452, 14193059, 5154229194, 565984976, 0130721, 1663386, 8177915, 4140221, 6982659, 28279376, 9611352, 5014153205 ####[facility] [address] [place] [address] LDHon 06-25-2023 LDH [Catalytic activity/Vol] 184 Int._Unit/L Normal 93-218 [facility] Comment on above: Performed By: #### 2 321460, 67660107, 74919255, 98541672, 7054266, 3433286281, 95299858, 0337591, 7889381, 9444613, 1734439, 316920857, 58502547, 7900484, 5018064, 3512742, 3859356, 91322299, 0602111560, 608729400, 5892810, 9215509, 8642652, 1906141, 4430269, 58211560, 9169650, 5100456286 ####[facility] [address] [place] [address] Oncology Noteon 06-25-2023 Oncology Note Oncology Care Coordi nator Office Visit/Treatment Note Current Patient Status/Reason: Pt in for initial clinic visit after referral due to elevated protein in blood. I accompanied Dr. Ernandez in room. explained lab value and possible causes for same and additional testing needed. Treatment Plan: labs as ordered. Skeletal survey, US of liver, 24 hr urine for UPEP. Follow-Up Appointment Info/Referrals: F/U in 3 weeks. Resources Offered: I gave pt my contact information and 's contact information and instructed to call with any questions or concerns. None voiced at this time. I instructed in outpt lab and pt will get labs done today. Normal [facility] Comment on above: Result Comment: Deacon solisally Signed By: Donna POWER, Gianna\.vanessa\Date and Time Signed: 06/25/23 13:46 EST Oncology Progress Noteon Oncology Progress Note Patient: ILDA VIERA Age: 38 years Sex: Female : 1985 Associated Diagnoses: None Author: Awais BAI, Dyan Cid Chief Complaint Elevated total protein and recurrent infections History of Present Illness Emma is a 38-year-old nice lady with a history of polycystic ovarian syndrome who has been taking metformin for that and has been having about 4 or strep throat a year almost yearly and who recently had a pneumonia beginning of May 2023 required use of prednisone and doxycycline was referred to our hematology clinic to be evaluated for elevated total protein found on recent labs done on 05/29/2023 with total protein of 8.5 but with normal albumin, normal globulin, normal hemoglobin creatinine and calcium level as well. At that time she had the pneumonia and she was treated with the prednisone her total WBCs was 14,000 mainly on neutrophils. Absolute lymphocyte count was normal. Her labs revealed elevated AST of 51. Patient never drank alcohol and denied tobacco smoking as well. She had 7 total pregnancies and 5 alive kids with 2 miscarriages and 11 weeks and 8 weeks. She never had thrombotic events. Last time she was checked for HIV during her last was in 2018. She is not aware of having or ever had been tested for hepatitis B or C as well. She has been with the same sexual partner for years as well. On review of system patient stated that she has joint pain especially in her fingers and they get puffy at times. Patient stated that she wheezes when she had cough and she has been coughing for 2 months from April 2023 till initial consult visit on 06/25/2023. She denied chest pain or shortness of breath unless she exerts herself. She has red cheeks and she is not sure of her grandma had SLE. Her mom had osteoarthritis and is not aware of anybody had other rheumatological diseases. Her maternal grandmother had bladder cancer. 14 point systems were reviewed and are negative. Review of Systems Constitutional: Fatigue, No fever, No chills. Eye: Negative. Ear/Nose/Mouth/Throat: Negative. Respiratory: Cough, Wheezing, No shortness of breath, No hemoptysis. Cardiovascular: No chest pain, No palpitations. Gastrointestinal: Negative. Genitourinary: Negative. Hematology/Lymphatics: Negative, No bruising tendency. Endocrine: Negative. Immunologic: Negative. Musculoskeletal: Joint pain, Joint pain of her fingers.. Integumentary: Red cheeks.. Neurologic: Alert and oriented X4. Psychiatric: Negative. ROS reviewed as documented in chart Health Status Allergies: Allergic Reactions (Selected) Severity Not Documented Nubain- Hallucin and hallucination. Current medications: Home Medications (13) Active Albuterol (Eqv-ProAir HFA) 90 mcg/inh inhalation aerosol 2 puff(s), Inhalation, q4hr cholecalciferol 50,000 intl units oral capsule 1,250 mcg = 1 cap(s), Oral, q7day doxycycline hyclate 100 mg Cap 100 mg = 1 cap(s), Oral, BID fluticasone 0.05 mg/inh Nasal [place] 1 spray(s), PRN, Nasal, Daily lamotrigine 150 mg Tab 300 mg = 2 tab(s), Oral, Daily Latuda 120 mg oral tablet Levoxyl 137 mcg (0.137 mg) oral tablet 137 mcg = 1 tab(s), Oral, Daily metformin 1000 mg Tab 1,000 mg = 1 tab(s), Oral, BID ondansetron 4 mg Tab 4 mg = 1 tab(s), PRN, Oral, q8hr predniSONE 10 mg Tab 10 mg = 1 tab(s), Oral, As Directed tiZANidine 4 mg Tab 4 mg = 1 tab(s), Oral, Bedtime traZODONE 100 mg Tab See Instructions Vraylar 1.5 mg oral capsule , No qualifying data available Problem list: All Problems Acute sinusitis with symptoms > 10 days / SNOMED CT 16251250 / Confirmed Acute sinusitis / SNOMED CT 14028787 / Confirmed Androgen level above reference range / SNOMED CT 4620209698 / Confirmed Bipolar disorder / SNOMED CT 58228209 / Confirmed Outside Source Comment: Overview: Invalid Interpretation Code ? Continue to follow with Nury Emily in behavioral health at [facility] TSHon 06-25-2023 TSH Qn 1.88 m[IU]/L Normal 0.34-5.60 [facility] Comment on above: Performed By: #### 2 625425, 97788516, 45327926, 04095601, 5061367, 8895917446, 81407871, 3668545, 7070639, 1876413, 5072569, 592922301, 20793618, 3432900, 7389133, 7428812, 9290410, 44816109, 0256756130, 744205063, 9425525, 5392094, 3074838, 5207256, 8034426, 50270302, 2486491, 3741224200 #### [facility] [address] [place] [address] Transferrinon 06-25-2023 Transferrin [Mass/Vol] 303 mg/dL Normal 200-370 [facility] Comment on above: Performed By: #### 2 434341, 20468573, 67447041, 99053513, 8483703, 7132300601, 35195158, 2463093, 0267835, 7955341, 6783920, 080208641, 92286736, 5141108, 7844935, 2286022, 2301554, 71823941, 3740337195, 856315204, 6639115, 3744399, 8432903, 1251328, 9908861, 90430739, 3525487, 9136731452 ####[facility] [address] [place] [address] Uric Acidon 06-25-2023 Urate [Mass/Vol] 6.7 mg/dL Normal 2.2-7.4 [facility] Comment on above: Performed By: #### 2 923138, 59271164, 62591219, 23588825, 0552827, 6411860257, 29644810, 5838056, 4775741, 8028249, 5063646, 487913237, 70617372, 4612871, 2761861, 1549502, 8812287, 87675234, 7803539863, 600383368, 3065308, 6885890, 8559603, 6872495, 5106325, 91700938, 6180398, 5481393033 ####[facility] [address] [place] [address] eGFRon 06-25-2023 GFR/1.73 sq M.predicted among non-blacks MDRD (S/P/Bld) [Vol rate/Area] 84 mL/min/1.73 m2 Normal >=59 [facility] Comment on above: Order Comment: Order added by Discern Expert. Result Comment: Dessert Cup Machine Feeder myrna kidney disease could be indicated at eGFR's of less than 60 mL/min/1.73m2. Kidney failure is indicated at less than 15 mL/min/1.73m2. Performed By: #### 2 035154, 09562118, 64411035, 85755133, 0471533, 0821808030, 88940506, 3001029, 1481438, 0737674, 7516182, 996152033, 69072168, 9891804, 6229951, 7110852, 3718082, 01302614, 3300102871, 283228774, 5632577, 7631028, 1503108, 8521661, 7039459, 31127247, 9384825, 7260352562 ####[facility] [address] [place] [address] Ambulatory Visit Summaryon 07-29-2022 Ambulatory Visit Summary ILDA VIERA :1985 Visit Date:05/29/2023 Ambulatory Visit Instructions Your Diagnosis Establishing care with new doctor, encounter for Wellness examination Upper respiratory infection Acute sinusitis with symptoms > 10 days Bipolar disorder Screening for lipid disorders Fatigue BMI 40.0-44.9, adult Elevated blood pressure reading without diagnosis of hypertension Your Care Team Attending Physician - Linda uLtz Primary Care Physician - Linda Lutz This Is Your Medications List albuterol (Albuterol (Eqv-ProAir HFA) 90 mcg/inh inhalation aerosol) brompheniramine-codeine (brompheniramine-codeine 2 mg-10 mg/5 mL oral syrup) cariprazine (Vraylar 1.5 mg oral capsule) doxycycline (doxycycline hyclate 100 mg Cap) fluticasone nasal (fluticasone 0.05 mg/inh Nasal [place]) lamotrigine (lamotrigine 150 mg Tab) levothyroxine (Levoxyl 137 mcg (0.137 mg) oral tablet) lurasidone (Latuda 120 mg oral tablet) metformin (metformin 1000 mg Tab) ondansetron (ondansetron 4 mg Tab) predniSONE (predniSONE 10 mg Tab) tizanidine (tiZANidine 4 mg Tab) trazodone (traZODONE 100 mg Tab) [Image Removed: STOP]Stop taking these medications dextromethorphan-prometha zine (dextromethorphan-prometh azine 15 mg-6.25 mg/5 mL Oral Syrup 5 mL) Procedures Performed Ethmoidectomy and turbinectomy (12/07/2021), Dental (02/28/2017), Cholecystectomy (2007). Discharge Vitals Temperature (Oral) 37.0 ?C Heart Rate (Peripheral) 107 Respiratory Rate 20 Blood Pressure 144/86 Height 158 cm Height 62 in Weight 100.2 kg Weight 220.44 lb BMI 40.14 What to do next You Need to Schedule the Following Appointments Follow Up with Brandon GARDINER, ELEN Clements, MED When: In 1 month Comments: f/u labs, HTN, Where: [address] [facility] [address] [address]- Medications What How Much When Why Instructions New brompheniramine-codeine (brompheniramine-codeine 2 mg-10 mg/ 5 mL oral syrup) 5 Milliliter By Mouth Every 4 hours as needed for for cough and congestion Upper respiratory infection Printed Prescription New doxycycline (doxycycline hyclate 100 mg Cap) 1 Capsules By Mouth 2 times a day Pickup at [facility]/pharmacy #[id number] Changed albuterol (Albuterol (Eqv-ProAir HFA) 90 mcg/ inh inhalation aerosol) 2 Puffs Inhalation Every 4 hours Bronchitis Persistent cough for 3 weeks or longer Morbid obesity with BMI of 40.0-44.9, adult Changed lurasidone (Latuda 120 mg oral tablet) Managed by Nury Zaman Changed predniSONE (predniSONE 10 mg Tab) 1 Tablets By Mouth As Directed Take 4 tabs for 3 days, 3 tabs for 3 days, 2 tabs for 3 days, 1 tab for 3 days. Pickup at [facility]/pharmacy #[id number] Unchanged cariprazine (Vraylar 1.5 mg oral capsule) Unchanged fluticasone nasal (fluticasone 0.05 mg/ inh Nasal [place]) 1 Sprays Nasal Inhalation Every day as needed for Allergy symptoms Unchanged lamotrigine (lamotrigine 150 mg Tab) 2 Tablets By Mouth Every day Unchanged levothyroxine (Levoxyl 137 mcg (0.137 mg) oral tablet) 1 Tablets By Mouth Every day Unchanged metformin (metformin 1000 mg Tab) 1 Tablets By Mouth 2 times a day Unchanged ondansetron (ondansetron 4 mg Tab) 1 Tablets By Mouth Every 8 hours as needed for Nausea/Vomiting Unchanged tizanidine (tiZANidine 4 mg Tab) 1 Tablets By Mouth At bedtime Unchanged trazodone (traZODONE 100 mg Tab) See instructions 0.5-1 tab po [facility] Information [facility]/pharmacy #[id number]: [address] [place], [place] [id number] [phone] What How Much When Why Comments Stop Taking dextromethorphan-prometha zine (dextromethorphan-prometh azine 15 mg-6.25 mg/ 5 mL Oral Syrup 5 mL) 5 Milliliter By Mouth Every 6 hours as needed for for cough Bronchitis Persistent cough for 3 weeks or longer Morbid obesity with BMI of 40.0-44.9, adult Medications and Immunizations Administered Not Given influenza virus vaccine, inactivated, Temporary contraindication - reschedule Allergies Nubain (Hallucination, hallucin) Problems Ongoing - Any problem that you are currently receiving treatment for. Acute sinusitis Acute sinusitis with symptoms > 10 days Androgen level above reference range Bipolar disorder BMI 38.0-38.9,adult Chronic frontal sinusitis Current non-smoker Depressive disorder in mother complicating Elevated blood pressure reading without diagnosis of hypertension Fatigue High risk High serum testosterone Hyperinsulinemia Hypothyroid Hypothyroidism in IUD check up Maternal obesity complicating , childbirth and the puerperium, antepartum Obesity caused by energy imbalance Polycystic ovary syndrome Recurrent sinusitis Screening for lipid disorders Serum testosterone level outside reference range Sinusitis Upper respiratory infection 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 Normal [facility] Auto Diffon 05-29-2023 Basophils/100 WBC (Bld) 0.5 % Normal 0.0-2.0 [facility] Comment on above: Order Comment: Order Added by Discern Expert. Performed By: #### 2 131781, 71775238, 02905590, 32743083, 5134223, 0129433653, 01717048, 6167489, 9469276, 1355025, 8855880, 011461037, 73678423, 8190013, 3639480, 4067461, 1282336, 52912868, 5346718866, 036078223, 0716553, 5808780, 5647921, 8534556, 1898597, 59480801, 0458891, 9422566524 #### [facility] [address] [place] [address] Basophils/Leukocytes Auto (Bld) [Pure # fraction] 0.1 E9/L Normal 0.0-0.2 [facility] Comment on above: Order Comment: Order Added by Discern Expert. Performed By: #### 2 954290, 15177959, 15474688, 38316381, 7101087, 6045323506, 94798597, 1924534, 8989328, 8755635, 2066419, 248040502, 51715752, 9932716, 1925020, 5005471, 1169513, 04515333, 5444692823, 542072738, 3690210, 2509645, 5814667, 2108843, 5751291, 36493854, 2005553, 2671976572 #### [facility] [address] [place] [address] Eosinophils/100 WBC (Bld) 1.6 % Normal 0.0-8.0 [facility] Comment on above: Order Comment: Order Added by Discern Expert. Performed By: #### 2 194486, 33865886, 52231766, 34769351, 3402844, 9205443499, 75414682, 7791047, 4996798, 0706048, 7253174, 537093597, 07448586, 2819712, 7830242, 2556883, 1760513, 88888573, 0729663306, 941525366, 6521192, 1551472, 7413119, 9461808, 0602188, 75824390, 5377918, 1798709734 #### [facility] [address] [place] [address] Eosinophils/Leukocyte s Auto (Bld) [Pure # fraction] 0.2 E9/L Normal 0.0-0.5 [facility] Comment on above: Order Comment: Order Added by Discern Expert. Performed By: #### 2 919433, 00936855, 23044534, 42982769, 3894657, 5553180770, 19807779, 5918374, 4515824, 7014238, 9018586, 275807073, 34646812, 4632590, 5018756, 3998346, 1386967, 02338500, 5198799878, 115552820, 7438406, 1358109, 0721274, 1806524, 8856301, 05225784, 2919939, 7666724189 #### [facility] [address] [place] [address] Lymphocytes/100 WBC (Bld) 21.7 % Normal 14.0-50.0 [facility] Comment on above: Order Comment: Order Added by Discern Expert. Performed By: #### 2 655283, 42057158, 34857551, 63049856, 8900256, 5383495745, 95753023, 8121626, 6690896, 1064285, 2360258, 128496745, 72393209, 9608638, 2459271, 0583463, 1861375, 91827824, 8947335298, 936418652, 1055591, 6071162, 6771197, 2715873, 2651520, 37232339, 9310386, 6205642058 #### [facility] [address] [place] [address] Lymphocytes/Leukocyte s Auto (Bld) [Pure # fraction] 3.1 E9/L Normal 1.0-4.0 [facility] Comment on above: Order Comment: Order Added by Discern Expert. Performed By: #### 2 356955, 15663407, 95156235, 39482064, 2876056, 2406540498, 19757343, 9845528, 8955140, 9407984, 2626290, 136500084, 24066495, 0293481, 6354978, 5672143, 0222877, 01314733, 7646408225, 661681990, 7492743, 3040947, 9747009, 4183633, 8136647, 85463476, 8432249, 5632725863 #### [facility] [address] [place] [address] Monocytes/100 WBC (Bld) 6.5 % Normal 4.0-14.0 [facility] Comment on above: Order Comment: Order Added by Discern Expert. Performed By: #### 2 976208, 22539392, 06363135, 49343869, 9033435, 7359028131, 65395212, 7667470, 8102915, 9715663, 2465719, 773759714, 94560744, 1548915, 6188961, 4909201, 9441073, 76158569, 3120920689, 699779218, 2329658, 8889687, 7729917, 2699148, 6314519, 98962778, 3318003, 2606055073 #### [facility] [address] [place] [address] Monocytes/Leukocytes Auto (Bld) [Pure # fraction] 0.9 E9/L Normal 0.2-1.0 [facility] Comment on above: Order Comment: Order Added by Discern Expert. Performed By: #### 2 422587, 79893384, 95604132, 84454531, 2604913, 6343708733, 41298591, 6618049, 6310393, 6664564, 4668767, 009415758, 01528268, 4010646, 7385218, 1398616, 1836737, 97967951, 0061725993, 103814499, 4085892, 0477679, 9950749, 8721649, 3960786, 13901181, 9119112, 4300361430 #### [facility] [address] [place] [address] Neutrophils/100 WBC (Bld) 69.7 % Normal 36.0-75.0 [facility] Comment on above: Order Comment: Order Added by Discern Expert. Performed By: #### 2 168862, 58354642, 92695268, 35786810, 5498145, 6084242251, 00707674, 3545054, 1449081, 2502131, 5670914, 853840550, 22839975, 2104371, 1371570, 8147327, 8650707, 95418723, 0852687140, 237039512, 1644219, 0410532, 9230787, 6503126, 9200140, 50673855, 1177988, 6510980549 #### [facility] [address] [place] [address] Neutrophils/Leukocyte s Auto (Bld) [Pure # fraction] 10.1 E9/L High 2.0-7.5 [facility] Comment on above: Order Comment: Order Added by Discern Expert. Performed By: #### 2 200794, 46315916, 11861831, 38855620, 9791797, 4483626920, 12612793, 8399121, 5977371, 3527469, 7027230, 898797584, 15307797, 4788046, 5683508, 4686895, 6982675, 36675624, 3654980607, 950733588, 4092675, 9600034, 8285945, 7987457, 1518546, 55011310, 0659749, 4957173259 #### [facility] [address] [place] [address] CBC w/ Auto Diffon 3 Erythrocyte distribution width (RBC) [Ratio] 13.8 % Normal 10.9-14.2 [facility] Comment on above: Performed By: #### 2 425097, 19723453, 42342679, 35283905, 0621200, 1974523885, 09580128, 0780153, 1161803, 2176253, 0491944, 873196237, 23028359, 8107595, 1309455, 6168387, 5212844, 90756370, 2528326846, 252842252, 1317282, 5860691, 2324852, 9071510, 7785527, 53839629, 0588603, 2253392841 #### [facility] [address] [place] [address] Hematocrit (Bld) [Volume fraction] 38.0 % Normal 34.0-46.0 [facility] Comment on above: Performed By: #### 2 515165, 59864821, 92584963, 95589315, 0052011, 1308095975, 46148164, 7521184, 7578544, 4843609, 7961364, 364984319, 17587716, 7010213, 4111849, 1144206, 1272499, 76958590, 6874128283, 694586567, 4135539, 6110031, 5676552, 6765455, 1735696, 31972865, 7691760, 8127024011 #### [facility] [address] [place] [address] Hemoglobin (Bld) [Mass/Vol] 12.6 g/dL Normal 12.0-16.0 [facility] Comment on above: Performed By: #### 2 901643, 10964049, 16986449, 17371365, 2570827, 4566075582, 89963926, 2630423, 9058732, 5553343, 5757962, 614798276, 55349092, 7433223, 1508682, 7219313, 1490320, 83473347, 9925361319, 210873750, 6025999, 8550364, 7737403, 5798233, 2733927, 66116475, 1086298, 0282222867 #### [facility] [address] [place] [address] MCH (RBC) [Entitic mass] 28.6 pg Normal 27.0-34.0 [facility] Comment on above: Performed By: #### 2 709280, 11943666, 31708269, 62861432, 1229402, 9121250325, 79844432, 6418914, 3342847, 0294416, 1950610, 582856504, 28720523, 5302818, 6407262, 5867338, 5772167, 24945930, 5591682082, 833834462, 3904177, 5865015, 8270235, 7367917, 6274461, 37841110, 2095655, 1042887624 #### [facility] [address] [place] [address] MCHC (RBC) [Mass/Vol] 33.1 g/dL Normal 31.4-36.0 [facility] Comment on above: Performed By: #### 2 267385, 80410493, 79839607, 45958503, 8936132, 1905503872, 79727182, 4843832, 1407301, 9598039, 9810512, 095346426, 68000535, 8873684, 2929529, 3236359, 4952486, 49937877, 1457313570, 065842330, 9065353, 8573876, 4570472, 8579109, 9529743, 27065378, 0847120, 5861379886 #### [facility] [address] [place] [address] MCV (RBC) [Entitic vol] 86.2 fL Normal 80.0-100.0 [facility] Comment on above: Performed By: #### 2 245142, 17251962, 54222885, 48572080, 0575890, 8978493929, 43058151, 1040273, 7981111, 5822917, 4428861, 237917538, 15166389, 1737735, 4048309, 9126073, 1863167, 33691400, 0934325983, 208572606, 6094866, 5457066, 6170474, 5856757, 0145347, 31187483, 9332854, 4790665680 #### [facility] [address] [place] [address] Platelet mean volume (Bld) [Entitic vol] 6.5 fL Normal 6.4-10.8 [facility] Comment on above: Performed By: #### 2 457503, 76461380, 51053070, 58559721, 4879448, 8092826341, 12193399, 6730618, 8456150, 1846973, 5884129, 146627574, 11983640, 0735001, 2980376, 9074957, 7917076, 83427891, 2914055125, 223974122, 4044791, 1557333, 5071644, 0915910, 9380711, 30099041, 4607526, 9070649329 #### [facility] [address] [place] [address] Platelets (Bld) [#/Vol] 450.0 E9/L Normal 150.0-500.0 [facility] Comment on above: Performed By: #### 2 412813, 87480394, 60628567, 98155496, 4928936, 9361920034, 13013999, 8465117, 1476459, 3215913, 8794405, 427885737, 65660238, 0236605, 4794414, 9580126, 3285387, 36518838, 6840845211, 806413861, 7368309, 8799163, 0604160, 7165340, 3262126, 22136795, 6367877, 7229293721 #### [facility] [address] [place] [address] RBC (Bld) [#/Vol] 4.4 E12/L Normal 4.3-5.9 [facility] [facility] Comment on above: Performed By: #### 2 379315, 64753237, 31078884, 56915720, 3476471, 6524211277, 53772261, 9425766, 0699041, 3352733, 1174481, 676046964, 22888449, 5178775, 1373522, 4170462, 8545991, 50517064, 9209156026, 637871504, 6725387, 3128238, 4845593, 0198606, 9238458, 54919465, 7974716, [id number] #### [facility] [address] [place] [address] WBC corrected for nucl RBC Auto (Bld) [#/Vol] 14.5 E9/L High 4.0-11.0 [facility] Comment on above: Performed By: #### 2 759230, 34658559, 97978299, 88465108, 3014571, 1288831520, 52628120, 0953171, 1547242, 4735005, 6750889, 868871223, 10117972, 4973464, 5250887, 0337678, 0794600, 39670279, 2230177296, 507456247, 3300111, 0475208, 0619773, 2596755, 7099969, 17887439, 8534410, [id number] #### [facility] [address] [place] [address] CHEMISTRYOrdered By: SYSTEM SYSTEM on 05-29-2023 25-hydroxyvitamin D3 [Mass/Vol] 21.1 ng/mL Low 30.0 - 100.0 ng/mL [facility] Remisol Comment on above: Interpretive Data: Vitamin D deficiency has been defined as a level of serum 25-OH vitamin D less than 20 ng/mL (1,2) by the [place] [employer] and an Endocrine Society practice guideline. The Endocrine Society further defined vitamin D insufficiency as a level between 21 and 29 ng/mL (2). 1. IOM ([place] of [employer]). 2010. Dietary reference intakes for calcium and D. [place]: The National Academies Press. 2. Yolanda MF, Javier CASTILLO, Riley GALLEGOS, et al. Evaluation, treatment, and prevention of vitamin D deficiency: an Endocrine Society clinical practice guideline. JCEM. 2010; 96 (7):1911-30. Albumin [Mass/Vol] 4.0 g/dL Normal 3.3 - 5.0 gm/dL [facility] Albumin/Globulin [Mass ratio] 0.9 {ratio} Low 1.1 - 2.2 [facility] ALP [Catalytic activity/Vol] 92 [iU]/d Normal 21 - 98 Int._Unit/L [facility] ALT No additional P-5'-P [Catalytic activity/Vol] 51 [iU]/d High 6 - 46 Int._Unit/L [facility] Anion gap [Moles/Vol] 13 mmol/L Normal 6 - 16 mEq/L [facility] AST [Catalytic activity/Vol] 36 [iU]/d Normal 5 - 43 Int._Unit/L [facility] Bilirubin [Mass/Vol] 0.3 mg/dL Normal 0.0 - 1 .1 mg/dL [facility] Calcium [Mass/Vol] 9.7 mg/dL Normal 8.9 - 11. 1 mg/dL [facility] Chloride [Moles/Vol] 103 mmol/L Normal 101 - 1 11 mmol/L [facility] CO2 [Moles/Vol] 27 mmol/L Normal 21 - 31 mmol/L [facility] Creatinine [Mass/Vol] 0.9 mg/dL Normal 0.5 - 1.3 mg/dL [facility] GFR/1.73 sq M.predicted among non-blacks MDRD (S/P/Bld) [Vol rate/Area] 84 mL/min/1.73 m2 Normal >=59mL/min/1 .73 m2 [facility] Chem S Comment on above: Interpretive Data: C hronic kidney disease could be indicated at eGFR's of less than 60 mL/min/1.73m2. Kidney failure is indicated at less than 15 mL/min/1.73m2. Globulin (S) [Mass/Vol] 4.5 g/dL High 1.4 - 4.0 gm/dL [facility] Remisol Glucose [Mass/Vol] 108 mg/dL Normal 55 - 199 mg/dL [facility] Remisol Comment on above: Interpretive Data: I f this glucose result represents a fasting glucose, interpretation should refer to the following reference range: 55-99 mg/dL Potassium [Moles/Vol] 3.2 mmol/L Low 3.5 - 5.3 mmol/L [facility] Protein [Mass/Vol] 8.5 g/dL High 6.0 - 7.8 gm/dL [facility] Sodium [Moles/Vol] 140 mmol/L Normal 135 - 145 mmol/L [facility] Urea nitrogen [Mass/Vol] 10 mg/dL Normal 5 - 21 mg/dL [facility] Remisol Urea nitrogen/Creatinine [Mass ratio] 11 mg/mg Normal 10 - 20 [facility]isol CMPon 05-29-2023 Albumin [Mass/Vol] 4.0 g/dL Normal 3.3-5.0 [facility] Comment on above: Performed By: #### 2 840853, 16628683, 75638058, 28290782, 5531601, 3963282155, 12377551, 2810428, 6739738, 8107219, 7024499, 794249177, 16969041, 8275580, 9633045, 1952952, 9593518, 02775705, 3307928162, 079901815, 2626384, 6965022, 1837247, 9556337, 5492464, 40144058, 0063813, [id number] #### [facility] [address] [place] [address] Albumin/Globulin (S) [Mass conc ratio] 0.9 Low 1.1-2.2 [facility] Comment on above: Performed By: #### 2 160838, 30358874, 83497563, 51699705, 3581796, 7340117494, 86851574, 8826542, 9150258, 6893505, 0592045, 037588190, 34305890, 1617374, 2470554, 7721582, 8306820, 97444046, 8723263148, 807233290, 8871010, 4856206, 7289183, 6214093, 6516676, 03423730, 0121324, 2736102148 #### [facility] [address] [place] [address] ALP [Catalytic activity/Vol] 92 Int._Unit/L Normal 21-98 [facility] Comment on above: Performed By: #### 2 287517, 86214149, 91060538, 20730714, 4497393, 9364318906, 60318272, 9396299, 3083358, 9447370, 7655964, 343051350, 06415247, 8344517, 0996514, 0109051, 0087819, 18650387, 0789070867, 792835495, 7853434, 3402940, 0202515, 3991143, 8577649, 21765412, 0131134, 0863462018 #### [facility] [address] [place] [address] ALT No additional P-5'-P [Catalytic activity/Vol] 51 Int._Unit/L High 6-46 [facility] Comment on above: Performed By: #### 2 554685, 08735710, 61755059, 32937754, 7116595, 7483375100, 90005785, 6992782, 0154274, 8828093, 4259455, 433579036, 10066452, 1534675, 8272195, 6708780, 2613631, 08694971, 8647074465, 257751066, 6879523, 3274338, 7444123, 6753599, 4904735, 96757239, 4584563, 8608563315 #### [facility] [address] [place] [address] Anion gap [Moles/Vol] 13 mmol/L Normal 6-16 [facility] Comment on above: Performed By: #### 2 989322, 09961023, 01105759, 15096959, 2225022, 1548763126, 12850598, 1275060, 8405284, 8647105, 9211830, 528980108, 18434046, 8401250, 2552982, 6897285, 0934109, 78657981, 0086667825, 184892681, 5900007, 7944229, 5218610, 9509147, 8870108, 39916624, 4441700, 9465114523 #### [facility] [address] [place] [address] AST [Catalytic activity/Vol] 36 Int._Unit/L Normal 5-43 [facility] Comment on above: Performed By: #### 2 815306, 49243876, 53488698, 48809140, 7516153, 0458717726, 90995570, 8451733, 7169651, 1415795, 6883306, 733088705, 48120616, 5809800, 1431170, 8746279, 6192277, 94740337, 4821924420, 679998813, 1655470, 5103433, 1712907, 8624471, 8391571, 12080353, 6843152, 1043334995 #### [facility] [address] [place] [address] Bilirubin [Mass/Vol] 0.3 mg/dL Normal 0.0-1.1 [facility] Comment on above: Performed By: #### 2 413626, 26940121, 41339911, 92852057, 6856478, 9994726427, 60100661, 2353091, 4089640, 3685371, 6288073, 349954416, 49282610, 8313286, 7965712, 3390474, 5658081, 71077235, 1900587552, 411172322, 6405682, 1356850, 6446697, 5549461, 1059114, 06068602, 6190260, [id number] #### [facility] [address] [place] [address] Calcium [Mass/Vol] 9.7 mg/dL Normal 8.9-11.1 [facility] Comment on above: Performed By: #### 2 765035, 27668890, 67622707, 46626148, 5452576, 2035419722, 33963539, 5971847, 6582399, 4139188, 0243267, 560033915, 45629154, 3749315, 1878927, 2241744, 7146451, 29137600, 3913529102, 532487466, 7774785, 0668145, 8862110, 4127291, 4500878, 89504156, 5629887, 5607808854 #### [facility] [address] [place] [address] Chloride [Moles/Vol] 103 mmol/L Normal 101-111 [facility] Comment on above: Performed By: #### 2 114450, 42746906, 11754564, 03432945, 6513265, 2562266973, 31224602, 0918232, 6022971, 7249150, 2969660, 913203872, 08597337, 4170293, 0457724, 7038689, 9234777, 63403315, 7383772999, 438798868, 9655067, 5813396, 6361223, 5148127, 3012867, 09161250, 9159942, 9832642232 #### [facility] [address] [place] [address] CO2 [Moles/Vol] 27 mmol/L Normal 21-31 [facility] Comment on above: Performed By: #### 2 776514, 24263880, 93646082, 43789032, 3140220, 9793372994, 86809726, 0858682, 8597258, 5825739, 2443722, 281968426, 60225164, 0704211, 2712005, 6770337, 9913563, 57547713, 4573787498, 878670029, 5636253, 8618460, 0694434, 9012987, 7641169, 87629432, 6823354, 3780245757 #### [facility] [address] [place] [address] Creatinine [Mass/Vol] 0.9 mg/dL Normal 0.5-1.3 [facility] Comment on above: Performed By: #### 2 966922, 40930164, 25072767, 47461469, 0366178, 5115030978, 56963733, 1081104, 6762730, 2513937, 2389936, 197805147, 83092633, 1330655, 3633864, 5101266, 6540306, 99263624, 4356132453, 843665108, 0925095, 6064172, 7718127, 3795454, 9679423, 13583983, 2496108, 5174788524 #### [facility] [address] [place] [address] Globulin (S) [Mass/Vol] 4.5 g/dL High 1.4-4.0 [facility] Comment on above: Performed By: #### 2 266647, 14683670, 61224265, 90778926, 4116651, 3191951299, 84673114, 8911452, 4764550, 3658494, 4770786, 642909006, 15480423, 2668889, 8748496, 9876319, 5953728, 13750019, 7526623192, 660291561, 1807887, 6509397, 3854008, 3426389, 0361695, 66381601, 0600588, 2783345419 #### [facility] [address] [place] [address] Glucose [Mass/Vol] 108 mg/dL Normal 55-199 [facility] Comment on above: Result Comment: If t his glucose result represents a fasting glucose, interpretation should refer to the following reference range: 55-99 mg/dL Performed By: #### 2 720726, 00338542, 49963128, 64617831, 7815912, 5003155091, 22019330, 2292116, 5857523, 9791610, 1735786, 787930012, 44670082, 1637648, 8285794, 0447306, 4684824, 90026284, 1050905837, 884005640, 1086782, 9510541, 0580480, 0950616, 3351867, 34719782, 5262297, 1810680360 #### [facility] [address] [place] [address] Potassium [Moles/Vol] 3.2 mmol/L Low 3.5-5.3 [facility] Comment on above: Performed By: #### 2 778206, 02520676, 82170974, 25195359, 8481734, 3434079112, 85887275, 2973331, 0308440, 8237218, 3651106, 197935455, 95962858, 9805126, 4059130, 6955214, 3861661, 53387769, 3081973861, 800204532, 2253106, 3071217, 5825848, 0958970, 1749125, 16432991, 0933061, 6248581047 #### [facility] [address] [place] [address] Protein [Mass/Vol] 8.5 g/dL High 6.0-7.8 [facility] Comment on above: Performed By: #### 2 707432, 79513057, 00728128, 39977831, 5715610, 3286656981, 63887811, 4320801, 5145314, 2395715, 6465129, 294692855, 22438985, 1257729, 5303766, 5268116, 7434752, 70799555, 0131166722, 530316816, 2554595, 3279967, 3368834, 6363793, 9264036, 41749565, 2489494, 2625080131 #### [facility] [address] [place] [address] Sodium [Moles/Vol] 140 mmol/L Normal 135-145 [facility] Comment on above: Performed By: #### 2 564385, 72617325, 82262488, 02688514, 0052232, 0698626362, 55596742, 6659142, 5396374, 8130930, 0993794, 281177982, 94277341, 4045238, 8668001, 9376337, 5335296, 41605625, 3257972573, 329305116, 1107312, 6728349, 5758807, 8618792, 9921611, 65685941, 5653216, 4846929321 #### [facility] [address] [place] [address] Urea nitrogen [Mass/Vol] 10 mg/dL Normal 5-21 [facility] Comment on above: Performed By: #### 2 167787, 36987279, 45677020, 68420829, 3214308, 6727352381, 09015990, 4337118, 1126755, 9166912, 4513375, 002221835, 28666652, 3293525, 9815112, 3812279, 9338118, 74681622, 8919500165, 090819902, 4673759, 8333088, 2265870, 3044476, 1439299, 65943047, 8573315, 9093758019 #### [facility] [address] [place] [address] Urea nitrogen/Creatinine [Mass ratio] 11 No Units Normal 10-20 [facility] Comment on above: Performed By: #### 2 004079, 93140952, 16696540, 70020128, 2414711, 9688049651, 46515728, 0865781, 1957164, 2506937, 5639714, 168728100, 13488311, 5245118, 4907292, 3939975, 8582983, 09444258, 4882565721, 628325933, 2645545, 5820803, 5843851, 1898570, 2033979, 56331785, 7865507, 3835185399 #### [facility] [address] [place] [address] Consent for Treatmenton Consent for Treatment [id number] Normal [facility] Family Medicine Office/Clini c Noteon 05-29-2023 Family Medicine Office/Clinic Note Chief Complaint Establish Care / possible pneumonia HPI Staff Reason for Visit: Establish Care. Pneumonia not improving. Pt comes in to establish care and for worsening pneumonia. Pt states that she was sick for approx 1 month before the Dx of pneumonia. Pt was placed on cough suppressant, antibiotic, inhaler, antiemetic and steroid with no improvement. Denies any chest pain or worsening shortness of breath Depression: Baseline PHQ9: 7 BRIANNE: Baseline: 8 Last Labs done: 11/2021 Covid Vaccine: Yes Flu Vaccine: Due Smoker: Non smoker Pap (21-64yo): Due. Pt states that it has been about 2 years OBGYN at [facility] History of Present Illness Patient is new to [place]- [facility]/ [facility] Patient is here today for evaluation and overall feeling MAY 12, Frequent visits to convenient care for sinus complaints and cough, december 27, exposure to strep, September 14, sinusitis given Augmentin, May 23 cough telehealth, Augmentin and prednisone Bromfed, January 11, 2022 sinus issues again COUGH- 6 weeks- tried everything OTC, Phenergan at night only helps a little, has done azithromycin and steroids, inhaler at home still coughing , no hx of PE< no CP, no fever, no n.v , no diarrhea, no constipation. no hx of asthma- + wheezing with cold exposure no heart burn sometimes, at night, empty stomach, TUMS, mild Medical History: -Bipolar disorder, follows [facility] Vraylar 1.5 mg daily started , lamotrigine 150 mg 2 tablets daily, Latuda 80 mg daily- decreasing. , trazodone 100 mg at bedtime , chronic sinusitis- has been evaluated by Dr. Vázquez problems continue polycystic ovarian syndrome, -metformin at 1000 mg twice daily, off spironolactone in the past- off for now vitamin D deficiency- no meds listed Hypothyroidism in -- [facility]- labs done in NOVEMBER 2022 levothyroxine 137 mcg daily Obesity -has been on Adipex (Phentermine) November prescribed by Fátima Williamson V, Md- [facility] - had prescibedd- not taking regularly OARRS reviewed today Elevated blood pressure reading today in the office, she has been having dental pain, went to the dentist yesterday had some work done and has been taking a lot of ibuprofen, patient denies any headaches slurred speech chest pain shortness of breath dizziness lightheadedness numbness or tingling. Past Surgical History: ENT procedure-ethmoidectomy, turbinectomy Dr. 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 : one abnormal 2005 repeat, HPV - negative Physical Exam Vitals & Measurements T: 37.0 ?C(Oral) HR: 80(Peripheral) RR: 20 BP: 145/85 SpO2: 97% HT: 62 in HT: 158 cm WT: 100.2 kg WT: 220.44 lb BMI: 40.14 General: alert, no acute distress, well appearing, _pleasant very obese younger/ middle-aged female Skin: warm, dry, intact Head: no trauma, normocephalic Neck: Trachea midline, no adenopathy, no tenderness Eye: normal conjunctiva, sclera clear, _PERRLA ENMT: TM's clear, oral mucosa moist, no pharyngeal erythema or exudate, normal dentition Cardiovascular: regular rate and rhythm, normal peripheral perfusion, no edema Respiratory: Lungs expiratory wheezes, respirations non labored, bronchial cough during physical exam right dry Chest wall: no deformity, non tender Gastrointestinal: soft, non distended, no tenderness, no guarding. Back: No tenderness, Normal ROM, Normal alignment. Extremities: no deformity, no trauma Neurological: oriented x 4, LOC appropriate for age, CN II-XII intact, motor strength equal & normal bilaterally, sensation equal & normal bilaterally, speech normal Psychiatric: cooperative? , affect appropriate for age? , normal? judgement, normal? psychiatric thoughts. Assessment/Plan 1. Establishing care with new doctor, encounter for (Z76.89: Persons encountering health services in other specified circumstances) - Discussed recommended screenings and testing for age and lifestyle risks: - (more content not included)... Normal [facility] Comment on above: Result Comment: Elec tronically Signed By: Brandon GARDINER, Linda Zamora\.br\Date and Time Signed: 05/29/23 09:49 EST HEMATOLOGYOrdered By: SYSTEM SYSTEM on 05-29-2023 Basophils/100 WBC (Bld) 0.5 % Normal 0.0 - 2.0 % [facility] Basophils/Leukocytes Auto (Bld) [Pure # fraction] 0.1 E9/L Normal 0.0 - 0.2 E9/L [facility] Eosinophils/100 WBC (Bld) 1.6 % Normal 0.0 - 8.0 % [facility] Eosinophils/Leukocyte s Auto (Bld) [Pure # fraction] 0.2 E9/L Normal 0.0 - 0.5 E9/L [facility] Lymphocytes/100 WBC (Bld) 21.7 % Normal 14.0 - 50.0 % [facility] Lymphocytes/Leukocyte s Auto (Bld) [Pure # fraction] 3.1 E9/L Normal 1.0 - 4.0 E9/L [facility] Monocytes/100 WBC (Bld) 6.5 % Normal 4.0 - 14.0 % [facility] Monocytes/Leukocytes Auto (Bld) [Pure # fraction] 0.9 E9/L Normal 0.2 - 1.0 E9/L [facility] Neutrophils/100 WBC (Bld) 69.7 % Normal 36.0 - 75.0 % [facility] Neutrophils/Leukocyte s Auto (Bld) [Pure # fraction] 10.1 E9/L High 2.0 - 7.5 E9/L [facility] HEMATOLOGYOrdered By: Sally grant on 05-29-2023 Erythrocyte distribution width (RBC) [Ratio] 13.8 % Normal 10.9 - 14.2 % [facility] Hematocrit (Bld) [Volume fraction] 38.0 % Normal 34.0 - 46.0 % [facility] Hemoglobin (Bld) [Mass/Vol] 12.6 g/dL Normal 12.0 - 16.0 gm/dL [facility] MCH (RBC) [Entitic mass] 28.6 pg Normal 27.0 - 34.0 pg [facility] MCHC (RBC) [Mass/Vol] 33.1 g/dL Normal 31.4 - 36.0 gm/dL [facility] MCV (RBC) [Entitic vol] 86.2 fL Normal 80.0 - 100.0 fL [facility] Platelet mean volume (Bld) [Entitic vol] 6.5 fL Normal 6.4 - 10.8 fL [facility] Platelets (Bld) [#/Vol] 450.0 E9/L Normal 150.0 - 500.0 E9/L [facility] RBC (Bld) [#/Vol] 4.4 E12/L Normal 4.3 - 5.9 E12/L [facility] WBC corrected for nucl RBC Auto (Bld) [#/Vol] 14.5 E9/L High 4.0 - 11.0 E9/L [facility] Patient Educationon 05-29-20 Patient Education Cardiovascular Hypertension, Adult High blood pressure (hypertension) is when the force of blood pumping through the arteries is too strong. The arteries are the blood vessels that carry blood from the heart throughout the body. Hypertension forces the heart to work harder to pump blood and may cause arteries to become narrow or stiff. Untreated or uncontrolled hypertension can lead to a heart attack, heart failure, a stroke, kidney disease, and other problems. A blood pressure reading consists of a higher number over a lower number. Ideally, your blood pressure should be below 120/80. The first ( top ) number is called the systolic pressure. It is a measure of the pressure in your arteries as your heart beats. The second ( bottom ) number is called the diastolic pressure. It is a measure of the pressure in your arteries as the heart relaxes. What are the causes? The exact cause of this condition is not known. There are some conditions that result in high blood pressure. What increases the risk? Certain factors may make you more likely to develop high blood pressure. Some of these risk factors are under your control, including: ? Smoking. ? Not getting enough exercise or physical activity. ? Being overweight. ? Having too much fat, sugar, calories, or salt (sodium) in your diet. ? Drinking too much alcohol. Other risk factors include: ? Having a personal history of heart disease, diabetes, high cholesterol, or kidney disease. ? Stress. ? Having a family history of high blood pressure and high cholesterol. ? Having obstructive sleep apnea. ? Age. The risk increases with age. What are the signs or symptoms? High blood pressure may not cause symptoms. Very high blood pressure (hypertensive crisis) may cause: ? Headache. ? Fast or irregular heartbeats (palpitations). ? Shortness of breath. ? Nosebleed. ? Nausea and vomiting. ? Vision changes. ? Severe chest pain, dizziness, and seizures. How is this diagnosed? This condition is diagnosed by measuring your blood pressure while you are seated, with your arm resting on a flat surface, your legs uncrossed, and your feet flat on the floor. The cuff of the blood pressure monitor will be placed directly against the skin of your upper arm at the level of your heart. Blood pressure should be measured at least twice using the same arm. Certain conditions can cause a difference in blood pressure between your right and left arms. If you have a high blood pressure reading during one visit or you have normal blood pressure with other risk factors, you may be asked to: ? Return on a different day to have your blood pressure checked again. ? Monitor your blood pressure at home for 1 week or longer. If you are diagnosed with hypertension, you may have other blood or imaging tests to help your health care provider understand your overall risk for other conditions. How is this treated? This condition is treated by making healthy lifestyle changes, such as eating healthy foods, exercising more, and reducing your alcohol intake. You may be referred for counseling on a healthy diet and physical activity. Your health care provider may prescribe medicine if lifestyle changes are not enough to get your blood pressure under control and if: ? Your systolic blood pressure is above 130. ? Your diastolic blood pressure is above 80. Your personal target blood pressure may vary depending on your medical conditions, your age, and other factors. Follow these instructions at home: Eating and drinking ? Eat a diet that is high in fiber and potassium, and low in sodium, added sugar, and fat. An example of this eating plan is called the DASH diet. DASH stands for Dietary Approaches to Stop Hypertension. To eat this way: ? Eat plenty of fresh fruits and vegetables. Try to fill one half of your plate at each meal with fruits and vegetables. ? Eat whole grains, such as whole-wheat pasta, brown rice, or whole-grain bread. Fill about one fourth of your plate with whole grains. ? Eat or drink low-fat dairy products, such as skim milk or low-fat yogurt. ? Avoid fatty cuts of meat, processed or cured meats, and poultry with skin. Fill about one fourth of your plate with lean proteins, such as fish, chicken without skin, beans, eggs, or tofu. ? Avoid pre-made and processed foods. These tend to be higher in sodium, added sugar, and fat. ? Reduce your daily sodium intake. Many people with hypertension should eat less than 1,500 mg of sodium a day. ? Do not drink alcohol if: ? Your health care provider tells you not to drink. ? You are , may be , or are planning to become . ? If you drink alcohol: ? Limit how much you have to: ? 0?1 drink a day for women. ? 0?2 drinks a day for men. ? Know how much alcohol is in your drink. In the [place] one drink equals one 12 oz bottle of beer (355 mL), one 5 oz glass of wine (148 mL), or one 1? oz glass (more content not included)... Normal [facility] Vitamin D 25 Hydroxyon 11-08 -2023 25-hydroxyvitamin D3 [Mass/Vol] 21.1 ng/mL Low 30.0-100.0 [facility] Comment on above: Result Comment: Vit mojica D deficiency has been defined as a level of serum 25-OH vitamin D less than 20 ng/mL (1,2) by the [place] [employer] and an Endocrine Society practice guideline. The Endocrine Society further defined vitamin D insufficiency as a level between 21 and 29 ng/mL (2). 1. IOM ([place] of [employer]). 2010. Dietary reference intakes for calcium and D. [place]: The National Academies Press. 2. Yolanda MF, Javier CASTILLO, Riley GALLEGOS, et al. Evaluation, treatment, and prevention of vitamin D deficiency: an Endocrine Society clinical practice guideline. JCEM. 2010; 96 (7):1911-30. Performed By: #### 2 [id number], [id number], [id number], [id number], [id number], [id number], [id number], [id number], [id number], [id number], [id number], [id number], [id number], [id number], [id number], [id number], [id number], [id number], [id number], [id number], [id number], [id number], 7608965, 8612133, [id number], [id number], [id number], [id number] #### [facility] [address] [place] [id number] XR Chest 2 Viewson 3 XR Chest 2 Views Exam Date/Time: 05/29/2023 13:06 EST Reason for Exam: J06.9 acute upper respiratory infection;Pneumonia Report IMPRESSION: There is mild atelectasis versus infiltrate in the right lung base. CLINICAL HISTORY: Pneumonia, J06.9 acute upper respiratory infection EXAMINATION: XR Chest 2 Views COMPARISON: Chest x-ray from 11/30/2021 FINDINGS: The cardiomediastinal silhouette is unremarkable. There is mild atelectasis versus infiltrate in the right lung base. The left lung is within normal limits. There are no acute osseous changes. Ordering Provider: Linda Taylor FINAL REPORT Dictated: 05/29/2023 3:54 pm Jon Becerra MD, V. Signed (Electronic Signature): 05/29/2023 3:54 pm Signed by: Jon Becerra MD, V. Transcribed by: GLENN Technologist: NIYA Technical Comments Radiation Dose: belen Jimenez in mGy = na DAP = na Normal [facility] eGFRon 05-29-2023 GFR/1.73 sq M.predicted among non-blacks MDRD (S/P/Bld) [Vol rate/Area] 84 mL/min/1.73 m2 Normal >=59 [facility] Comment on above: Order Comment: Order added by Discern Expert. Result Comment: Dessert Cup Machine Feeder myrna kidney disease could be indicated at eGFR's of less than 60 mL/min/1.73m2. Kidney failure is indicated at less than 15 mL/min/1.73m2. Performed By: #### 2 [id number], [id number], [id number], [id number], [id number], [id number], [id number], [id number], [id number], [id number], [id number], [id number], [id number], [id number], [id number], [id number], [id number], [id number], [id number], [id number], [id number], 4592505, [id number], [id number], [id number], [id number], [id number] #### [facility] [address] [place] [address] Family Medicine Office/Clini c Noteon 05-12-2023 Family Medicine Office/Clinic Note Chief Complaint EST cough HPI Staff Ilda, 38 yo female here today with cough symptoms began 1 mth ago Pt was given prednisone- no relief 2 wks ago Pt has a productive cough Pt has been taking Bromfed History of Present Illness 38-year-old female to the clinic with her young son both with a cough which is now present over 1 month. She states her cough has been worsening over the past couple of weeks. She now has a very harsh cough with an audible wheeze. She denies any chest discomfort Review of Systems Constitutional: Denies fevers, chills or general sense of illness Head/Ears/Nose/Throat: Denies earache or sore throat Respiratory: Mild shortness of breath over the past week or so and a harsh persistent cough over 1 month Cardiovascular: Denies chest pain GI/ : Denies abdominal pain, n/v. Musculoskeletal: Denies Joint pain, Denies muscle pain Physical Exam Vitals & Measurements T: 36.8 ?C(Oral) HR: 98(Peripheral) BP: 124/80 SpO2: 97% HT: 62 in HT: 158 cm WT: 101.2 kg WT: 222.64 lb BMI: 40.54 Primary assessment: Airway patent. Respirations unlabored. Normal respiratory effort Constitutional: Vital signs reviewed. Well appearing. No distress. Psychiatric: Mental status appropriate. Normal affect Skin: Warm and dry. No rashes noted. Eyes: Conjunctiva clear. No photophobia HENT: Normal TMs. Posterior pharynx clear. Negative cervical lymphadenopathy. Thorax/ Respiratory: Respiratory effort non-labored. BBS reveal inspiratory/expiratory wheezes in all [place]. No rhonchi is noted. Neurologic: Alert and oriented Assessment/Plan 1. Bronchitis (J40: Bronchitis, not specified as acute or chronic) Ordered: albuterol, 2 puff(s), Inhalation, q4hr, 18 gm, Refill(s) 0, [facility]/pharmacy #[id number], 158, cm, 05/12/23 11:37:00 EDT, Height/Length Dosing, 101.2, kg, 05/12/23 11:37:00 EDT, Weight Dosing azithromycin, = 1 packet(s), Oral, As Directed, as directed on package labeling, X 5 day(s), # 6 tab(s), Refills(s) 0, Pharmacy: [facility]/pharmacy #[id number], 158, cm, 05/12/23 11:37:00 EDT, Height/Length Dosing, 101.2, kg, 05/12/23 11:37:00 EDT, Weight Dosing benzonatate, 200 mg = 1 cap(s), Oral, TID, X 10 day(s), # 30 cap(s), Refills(s) 0, Pharmacy: [facility]/pharmacy #[id number], 158, cm, 05/12/23 11:37:00 EDT, Height/Length Dosing, 101.2, kg, 05/12/23 11:37:00 EDT, Weight Dosing dextromethorphan-prometha zine, 5 mL, Oral, q6hr for cough, 240 mL, Refill(s) 0, [facility]/pharmacy #[id number], 158, cm, 05/12/23 11:37:00 EDT, Height/Length Dosing, 101.2, kg, 05/12/23 11:37:00 EDT, Weight Dosing predniSONE, See Instructions, 3 po qam x3 days then 2po qam x3 days then 1 po qam x3 days. May stop the prednisone early if the cough resolves early, # 18 tab(s), Refills(s) 0, Pharmacy: [facility]/pharmacy #[id number], 158, cm, 05/12/23 11:37:00 EDT, Height/Length Dosing, 1... 2. Persistent cough for 3 weeks or longer (R05.3: Chronic cough) Ordered: albuterol, 2 puff(s), Inhalation, q4hr, 18 gm, Refill(s) 0, [facility]/pharmacy #[id number], 158, cm, 05/12/23 11:37:00 EDT, Height/Length Dosing, 101.2, kg, 05/12/23 11:37:00 EDT, Weight Dosing azithromycin, = 1 packet(s), Oral, As Directed, as directed on package labeling, X 5 day(s), # 6 tab(s), Refills(s) 0, Pharmacy: [facility]/pharmacy #[id number], 158, cm, 05/12/23 11:37:00 EDT, Height/Length Dosing, 101.2, kg, 05/12/23 11:37:00 EDT, Weight Dosing benzonatate, 200 mg = 1 cap(s), Oral, TID, X 10 day(s), # 30 cap(s), Refills(s) 0, Pharmacy: [facility]/pharmacy #[id number], 158, cm, 05/12/23 11:37:00 EDT, Height/Length Dosing, 101.2, kg, 05/12/23 11:37:00 EDT, Weight Dosing dextromethorphan-prometha zine, 5 mL, Oral, q6hr for cough, 240 mL, Refill(s) 0, [facility]/pharmacy #[id number], 158, cm, 05/12/23 11:37:00 EDT, Height/Length Dosing, 101.2, kg, 05/12/23 11:37:00 EDT, Weight Dosing predniSONE, See Instructions, 3 po qam x3 days then 2po qam x3 days then 1 po qam x3 days. May stop the prednisone early if the cough resolves early, # 18 tab(s), Refills(s) 0, Pharmacy: [facility]/pharmacy #[id number], 158, cm, 05/12/23 11:37:00 EDT, Height/Length Dosing, 1... 3. Morbid obesity with BMI of 40.0-44.9, adult (E66.01: Morbid (severe) obesity due to excess calories) Ordered: albuterol, 2 puff(s), Inhalation, q4hr, 18 gm, Refill(s) 0, [facility]/pharmacy #[id number], 158, cm, 05/12/23 11:37:00 EDT, Height/Length Dosing, 101.2, kg, 05/12/23 11:37:00 EDT, Weight Dosing azithromycin, = 1 packet(s), Oral, As Directed, as directed on package labeling, X 5 day(s), # 6 tab(s), Refills(s) 0, Pharmacy: [facility]/pharmacy #[id number], 158, cm, 05/12/23 11:37:00 EDT, Height/Length Dosing, 101.2, kg, 05/12/23 11:37:00 EDT, Weight Dosing benzonatate, 200 mg = 1 cap(s), Oral, TID, X 10 day(s), # 30 cap(s), Refills(s) 0, Pharmacy: [facility]/pharmacy #[id number], 158, cm, 05/12/23 11:37:00 EDT, Height/Length Dosing, 101.2, kg, 05/12/23 11:37:00 EDT, Weight Dosing dextromethorphan-prometha zine, 5 mL, Oral, q6hr for cough, 240 mL, Refill(s) 0, [facility]/pharmacy #[id number], 158, cm, 05/12/23 11:37:00 EDT, Height/Length Dosing, 101.2, kg, 05/12/23 11:37:00 EDT, Weight Dosing (more content not included)... Normal [facility] Comment on above: Result Comment: Elec tronically Signed By: Dory SERVIN, Rocco WSarwat\.br\Date and Time Signed: 05/12/23 12:09 EDT SEROLOGYOrdered By: Quin carrasco on 12-07-2021 Beta hCG Ql Negative (12/07/21 7:08 AM) Normal [facility] Man Sero PTTon 12-02-2021 aPTT Coag (Bld) [Time] 29.6 s Normal 22.3-36.2 [facility] Comment on above: Performed By: #### P TT #### [facility] [address] [place] [address] Dr. Casper Triplett Progress Noteon 08-28-2017 Bid Clerk Authentication Interface Message Text Maternal Medicine ConsultDate of Service: 08/28/2017Referring Provider: Su Car Care Provider: Gloria Lucas for Consult: Dr. Su Wright requests that Ilda be evaluated due tobipolar disorder on medication.Daren is a 32 y.o. at 13w2d gestation who presents for evaluation ofbipolar disorder on medication and hypothyroidism during . The patienthas been struggling with bipolar disorder and depression for years. She was onzoloft during two of her prior pregnancies. She states that she felt veryunstable, was crying all the time and could not stand being with some of thepeople she cares about until she was started on latuda. She feels significantlybetter on the latuda and zoloft. She denies any homicidal or suicidal ideationand cries a lot less.The patient states that she also has hypothyroidism. She has been on 75 mcg fora while .Obstetric History T5 L5 SAB2 TAB0 Ectopic0 Multiple0 Live Births5# Outcome Date GA Lbr Kvng/2nd Weight Sex Delivery Anes PTL Lv8 Current7 Term 08/20/16 39w0d 3.317 kg M Vag-Spont EPI N IZABEL Name: Kaycen6 Term 01/14/13 39w0d 3.005 kg M Vag-Spont N IZABEL Name: JJ5 Term 10/09/11 39w0d 3.232 kg F Vag-Spont EPI N IZABEL Name: Lopez 2011 8w0d3 2008 10w0d2 Term 04/06/07 38w0d 2.693 kg M Vag-Spont EPI N IZABEL Name: Jailyn Term 02/07/05 39w0d 2.92 kg F Vag-Spont EPI N IZABEL Name: Nuris Medical History:Diagnosis Date Bipolar disease during Hypothyroid in , antepartumPast Surgical History:Procedure Laterality Date CHOLECYSTECTOMY HEMORRHOID SURGERYAllergiesAllergen Reactions Nubain [Nalbuphine Hcl] Other (See Comments) hallucinationsSocial HistorySocial History Marital status: Unknown Spouse name: N/A Number of children: N/A Years of education: N/ASocial History Main Topics Smoking status: Never Smoker Smokeless tobacco: Never Used Alcohol use No Drug use: No Sexual activity: Yes Partners: MaleOther Topics Concern NoneSocial History Narrative NoneInfections Live with someone with or exposed to TB No Partner has hx of genital herpes No Rash or viral illness since last menstruation No History of STI's Hx of MMR No 2nd STI 3rd STI Is there anything else we should know? No Other infections NoGenetics Age is > than 35y as of estimated date No Thalassemia No Neural Tube Defect No Congenital Heart Defect No Down Syndrome No Jas-Sachs No Emily Disease No Sickle Cell Disease or Trait No Hemophilia, Thrombophilia No Muscular Dystrophy No Cystic Fibrosis No [place]'s Chorea No Mental Retardation/Autism No Maternal Metabolic Disorder No Recurrent Loss, or a Stillbirth No Inherited Genetic or Chromosomal Disorder No Illicit; Rec.drugs; Alcohol since last menses NoFamily HistoryProblem Relation Age of Onset Mental Illness Mother bipolar Mental Illness Father bipolar Mental Illness Brother bipolarOutpatient Encounter Prescriptions as of 08/28/2017Medication Sig Dispense Refill Vit-Fe Fumarate-FA ( VITAMIN PO) Take by mouth daily Sertraline HCl (ZOLOFT PO) Take 150 mg by mouth daily lurasidone (LATUDA) 40 MG tablet Take 40 mg by mouth daily ondansetron (ZOFRAN) 4 MG tablet Take 4 mg by mouth once levothyroxine (SYNTHROID) 75 MCG tablet Take 75 mcg by mouth dailyNo facility-administered encounter medications on file as of 08/28/2017. Review of Systems Physical ExamFHT: PositiveWhile most often, is a time of emotional well-being, it does notprotect against the development of new onset major depression or relapse ofexisting major depressiveIllness or bipolar disorder. Women who discontinue or reduce their doses ofantidepressants or antipsychotics are at particularly high risk for both relapseduring and post depression. Consequence of depression and otherpsychiatric morbidities during include but are not limited tononadherenceto care, using tobacco, alcohol and illicit drugs, poorappetite and weight gain, insomnia, anxiety, worsening depression, suicidalideation or suicide, and poor bonding with the . Infants who are exposedto these medications in utero can experience a withdrawal effect after delivery.Symptoms may include agitation, feeding difficulty, hypertonia, hypotonia,respiratory distress, and tremor. Most often, these are self limiting.Therefore, we recommend continued use of medications during .Untreated or partially treated hypothyroidism in is associated withincreased incidence of infertility, miscarriage, preeclampsia, abruption, , low weight infant, and long-term psychomotorfunction of the fetus. The goal of levothyroxine treatment in is tomaintain a maternal serum TSH between 0.5 and 2 ?U/mL and free T4 in the upperthird of the normal range. During , all women will need an increase intheir thyroxine dose. We recommend increasing the thyroxine dose by 30% at thebeginning of . As the patientwas previously hyperthyroid, she should be checked at the beginning of pregnancyfor thyroidstimulating immunoglobulins. If the immunoglobulins are still >200%, the fetusis at risk for developing a goiter and this should be monitored for byultrasound. If the patient is euthyroid, there is no need for serial fetalgrowth assessment or testing.Impression/Plan:[age] y.o. at 13w2d withActive Non-Hospital Problems Diagnosis Date Noted Bipolar disease during 08/28/2017 Continue to follow with Nury Zaman in behavioral health at [facility] Continue latuda Depression affecting 08/28/2017 Continue following with Nury Zaman in behavioral health at [facility] Continue zoloft Risks of withdrawal discussed Hypothyroid in , antepartum 08/28/2017 Increase synthroid to 100mcg daily. This was sent to her pharmacy. Recommend TSH and free T4 every trimester and 4 weeks after any change inmedication dosage Obesity affecting , antepartum 08/28/2017 Recommend no more than 11-20 lb weight gain in . Recommend 30 minutes moderate exercise 5 times a week Recommend an early glucose test Supervision of other high risk , antepartum 08/28/2017 PLAN OF CAREMD/OB APPOINTMENTSHow often should patient be evaluated? As clinically indicatedWork restrictions: noneFETAL EVALUATIONAntenatal surveillance: as clinically indicatedUltrasound: anatomic survey at 18-20 weeksDELIVERY PLANHospital: [facility]Let LaborGBS culture:Contraception:Fol low up in 6 weeks for anatomy ultrasoundJuan Fairbanks MD [facility] Vital Signs Date Time Vital Sign Value Performing Clinician Facility 08-31-2024 08:55-0500 Body height 160 cm [facility] PA Work Phone: [facility] 08-31-2024 08:55-0500 Body mass index (BMI) [Ratio] 38.26 kg/m2 [facility] PA Work Phone: [facility] 08-31-2024 08:55-0500 Body weight 97.98 kg [facility] PA Work Phone: [facility] 08-06-2024 13:24-0500 Body height 160 cm Josselyn Soria [employer] Work Phone: [facility] 08-06-2024 13:24-0500 Body mass index (BMI) [Ratio] 38.26 kg/m2 Josselyn Soria [employer] Work Phone: [facility] 08-06-2024 13:24-0500 Body weight 97.98 kg Josselyn Soria [employer] Work Phone: [facility] 08-06-2024 13:24-0500 Diastolic blood pressure 78 mm[Hg] Josselyn Soria [employer] Work Phone: [facility] 08-06-2024 13:24-0500 Systolic blood pressure 122 mm[Hg] Joseslyn Soria [employer] Work Phone: [facility] 07-29-2024 13:20-0500 Body height 160 cm Vonda Buffer PA Work Phone: [facility] 07-29-2024 13:20-0500 Body mass index (BMI) [Ratio] 38.26 kg/m2 [facility] PA Work Phone: [facility] 07-29-2024 13:20-0500 Body weight 97.98 kg [facility] PA Work Phone: [facility] 07-07-2024 14:42-0500 Body height 157.5 cm Neva Nataprawira DO Work Phone: [facility] 07-07-2024 14:42-0500 Body mass index (BMI) [Ratio] 40.49 kg/m2 Neva Nataprawira DO Work Phone: [facility] 07-07-2024 14:42-0500 Body weight 100.43 kg Neva Nataprawira DO Work Phone: [facility] 06-30-2024 13:54-0500 Body height 157.5 cm Ronda Sandy MD Work Phone: [facility] 06-30-2024 13:54-0500 Body mass index (BMI) [Ratio] 40.6 kg/m2 Ronda Sandy MD Work Phone: [facility] 06-30-2024 13:54-0500 Body weight 100.7 kg Ronda Sandy MD Work Phone: [facility] 06-30-2024 13:54-0500 Diastolic blood pressure 71 mm[Hg] Ronda Sandy MD Work Phone: [facility] 06-30-2024 13:54-0500 Heart rate 69 /min Ronda Sandy MD Work Phone: [facility] 06-30-2024 13:54-0500 Systolic blood pressure 110 mm[Hg] Ronda Sandy MD Work Phone: [facility] 06-28-2024 13:00-0500 Heart rate 67 /min Kylah Rivas [facility] 06-28-2024 12:30-0500 Diastolic blood pressure 65 mm[Hg] Kylah Rivas [facility] 06-28-2024 12:30-0500 Heart rate 64 /min Kylah Rob [facility] 06-28-2024 12:30-0500 Mean blood pressure 84 mm[Hg] yKlah Rivas [facility] 06-28-2024 12:30-0500 Respiratory rate 18 /min Kylah Rivas [facility] 06-28-2024 12:30-0500 SaO2% (BldA) [Mass fraction] 96 % Kylah Rivas [facility] 06-28-2024 12:30-0500 Systolic blood pressure 122 mm[Hg] Kylah Rivas [facility] 06-28-2024 11:00-0500 Body temperature 98.6 [degF] Kylah Rob [facility] 06-28-2024 11:00-0500 Diastolic blood pressure 68 mm[Hg] Kylah Rivas [facility] 06-28-2024 11:00-0500 Heart rate 76 /min Kylah Rivas [facility] 06-28-2024 11:00-0500 SaO2% (BldA) [Mass fraction] 98 % Kylah Rivas [facility] 06-28-2024 11:00-0500 Systolic blood pressure 123 mm[Hg] Kylah Rob [facility] 06-22-2024 09:09-0500 Body temperature 97.88 [degF] Mhd Al-Marrawi [facility] 06-22-2024 09:09-0500 Diastolic blood pressure 81 mm[Hg] [facility] Al-Marrawi [facility] 06-22-2024 09:09-0500 Heart rate 72 /min d Al-Marrawi [facility] 06-22-2024 09:09-0500 Mean blood pressure 93 mm[Hg] [facility] 06-22-2024 09:09-0500 Respiratory rate 18 /min [facility] 06-22-2024 09:09-0500 SaO2% (BldA) [Mass fraction] 97 % [facility] 06-22-2024 09:09-0500 Systolic blood pressure 118 mm[Hg] [facility] 06-19-2024 17:09-0500 Blood Pressure Location REMLAP CHAMPAGNE [facility] 06-19-2024 17:09-0500 Body temperature 97.88 [degF] REMLAP [facility] 06-19-2024 17:09-0500 Diastolic blood pressure 78 mm[Hg] GHISLAINE CHAMPAGNE [facility] 06-19-2024 17:09-0500 Heart rate 69 /min [facility] 06-19-2024 17:09-0500 SaO2% (BldA) [Mass fraction] 98 % [facility] 06-19-2024 17:09-0500 Systolic blood pressure 122 mm[Hg] [facility] 06-16-2024 15:01-0500 Body height 157.5 cm Rubén Núñez MD Work Phone: [facility] 06-16-2024 15:01-0500 Body mass index (BMI) [Ratio] 39.69 kg/m2 Rubén Núñez MD Work Phone: [facility] 06-16-2024 15:01-0500 Body weight 98.43 kg Rubén Núñez MD Work Phone: [facility] 06-16-2024 15:01-0500 Diastolic blood pressure 70 mm[Hg] Rubén Núñez MD Work Phone: [facility] 06-16-2024 15:01-0500 Heart rate 60 /min Rubén Núñez MD Work Phone: [facility] 06-16-2024 15:01-0500 Systolic blood pressure 116 mm[Hg] Rubén Núñez MD Work Phone: [facility] 06-03-2024 09:15-0500 Body height 157.48 cm [facility] 06-03-2024 09:15-0500 Body mass index (BMI) [Ratio] 41.3 kg/m2 [facility] 06-03-2024 09:15-0500 Body temperature 98.9 [degF] [facility] 06-03-2024 09:15-0500 Body weight 102.51 kg [facility] 06-03-2024 09:15-0500 Diastolic blood pressure 96 mm[Hg] [facility] 06-03-2024 09:15-0500 Heart rate 58 /min [facility] 06-03-2024 09:15-0500 SaO2% (BldA) [Mass fraction] 96 % [facility] 06-03-2024 09:15-0500 Systolic blood pressure 154 mm[Hg] [facility] 05-30-2024 17:00-0500 Diastolic blood pressure 87 mm[Hg] Markus Elkins [facility] 05-30-2024 17:00-0500 Heart rate 74 /min Markus Amezquitae [facility] 05-30-2024 17:00-0500 Mean blood pressure 101 mm[Hg] Markus Brittni [facility] 05-30-2024 17:00-0500 SaO2% (BldA) [Mass fraction] 99 % Markus Brittni [facility] 05-30-2024 17:00-0500 Systolic blood pressure 129 mm[Hg] Markus Brittni [facility] 05-30-2024 16:26-0500 Diastolic blood pressure 97 mm[Hg] Markus Brittni [facility] 05-30-2024 16:26-0500 Heart rate 63 /min Markus Amezquitae [facility] 05-30-2024 16:26-0500 Mean blood pressure 112 mm[Hg] Markus Amezquitae [facility] 05-30-2024 16:26-0500 Respiratory rate 16 /min Markus Amezquitae [facility] 05-30-2024 16:26-0500 SaO2% (BldA) [Mass fraction] 100 % Markus Amezquitae [facility] 05-30-2024 16:26-0500 Systolic blood pressure 141 mm[Hg] Markus Brittni [facility] 05-30-2024 14:49-0500 Body temperature 98.42 [degF] Markus Brittni [facility] 05-30-2024 14:49-0500 Diastolic blood pressure 94 mm[Hg] Markus Brittni [facility] 05-30-2024 14:49-0500 Heart rate 63 /min Markus Brittni [facility] 05-30-2024 14:49-0500 Respiratory rate 14 /min Markus Elkins [facility] 05-30-2024 14:49-0500 SaO2% (BldA) [Mass fraction] 100 % Markus Elkins [facility] 05-30-2024 14:49-0500 Systolic blood pressure 172 mm[Hg] Markus Elkins [facility] 05-27-2024 16:09-0500 Body temperature 97.3 [degF] Tal Robles MD Work Phone: [facility] 05-27-2024 16:09-0500 Diastolic blood pressure 88 mm[Hg] Tal Robles MD Work Phone: [facility] 05-27-2024 16:09-0500 Heart rate 74 /min Tal Robles MD Work Phone: [facility] 05-27-2024 16:09-0500 Respiratory rate 18 /min Tal Robles MD Work Phone: [facility] 05-27-2024 16:09-0500 SaO2% (BldA) [Mass fraction] 96 % Tal Robles MD Work Phone: [facility] 05-27-2024 16:09-0500 Systolic blood pressure 126 mm[Hg] Tal Robles MD Work Phone: [facility] 05-24-2024 09:00-0500 Diastolic blood pressure 79 mm[Hg] [facility] 05-24-2024 09:00-0500 Heart rate 85 /min [facility] 05-24-2024 09:00-0500 Mean blood pressure 94 mm[Hg] [facility] 05-24-2024 09:00-0500 Respiratory rate 16 /min [facility] 05-24-2024 09:00-0500 SaO2% (BldA) [Mass fraction] 98 % [facility] 05-24-2024 09:00-0500 Systolic blood pressure 125 mm[Hg] [facility] 05-24-2024 08:00-0500 Diastolic blood pressure 80 mm[Hg] [facility] 05-24-2024 08:00-0500 Heart rate 89 /min [facility] 05-24-2024 08:00-0500 Mean blood pressure 91 mm[Hg] [facility] 05-24-2024 08:00-0500 Respiratory rate 15 /min [facility] 05-24-2024 08:00-0500 Systolic blood pressure 114 mm[Hg] [facility] 05-24-2024 07:00-0500 Diastolic blood pressure 84 mm[Hg] [facility] 05-24-2024 07:00-0500 Heart rate 111 /min [facility] 05-24-2024 07:00-0500 Mean blood pressure 96 mm[Hg] [facility] 05-24-2024 07:00-0500 Respiratory rate 13 /min [facility] 05-24-2024 07:00-0500 SaO2% (BldA) [Mass fraction] 96 % [facility] 05-24-2024 07:00-0500 Systolic blood pressure 121 mm[Hg] [facility] 05-24-2024 05:56-0500 Body temperature 97.52 [degF] [facility] 05-24-2024 05:56-0500 Heart rate 219 /min [facility] 05-24-2024 05:56-0500 Respiratory rate 20 /min Astrit Hajdari [facility] 05-19-2024 11:00-0400 Diastolic blood pressure 88 mm[Hg] Rubén Núñez MD Work Phone: [facility] 05-19-2024 11:00-0400 Systolic blood pressure 124 mm[Hg] Rubén Núñez MD Work Phone: [facility] 05-19-2024 10:59-0400 Body height 157.5 cm Rbuén Núñez MD Work Phone: [facility] 05-19-2024 10:59-0400 Body mass index (BMI) [Ratio] 42.43 kg/m2 Rubén Núñez MD Work Phone: [facility] 05-19-2024 10:59-0400 Body weight 105.23 kg Rubén Núñez MD Work Phone: [facility] 05-19-2024 10:59-0400 Heart rate 79 /min Rubén Núñez MD Work Phone: [facility] 05-06-2024 08:44-0400 Body mass index (BMI) [Ratio] 40.45 kg/m2 Neva Nataprawira DO Work Phone: [facility] 05-06-2024 08:44-0400 Body weight 105.23 kg Neva Nataprawira DO Work Phone: [facility] 05-06-2024 08:44-0400 Diastolic blood pressure 80 mm[Hg] Neva Nataprawira DO Work Phone: [facility] 05-06-2024 08:44-0400 Systolic blood pressure 138 mm[Hg] Neva Nataprawira DO Work Phone: [facility] 04-23-2024 10:33-0400 Body mass index (BMI) [Ratio] 39.58 kg/m2 Josselyn Soria NP Work Phone: [facility] 04-23-2024 10:33-0400 Body weight 102.97 kg Josselyn Soria [employer] Work Phone: [facility] 04-23-2024 10:33-0400 Diastolic blood pressure 82 mm[Hg] Josselyn Soria [employer] Work Phone: [facility] 04-23-2024 10:33-0400 Systolic blood pressure 132 mm[Hg] Josselyn Soria [employer] Work Phone: [facility] 04-20-2024 12:22-0400 Body temperature 97.3 [degF] Say Schmid MD Work Phone: [facility] 04-20-2024 12:22-0400 Diastolic blood pressure 88 mm[Hg] Say Schmid MD Work Phone: [facility] 04-20-2024 12:22-0400 Heart rate 102 /min Say Schmid MD Work Phone: [facility] 04-20-2024 12:22-0400 Respiratory rate 18 /min Say Schmid MD Work Phone: [facility] 04-20-2024 12:22-0400 SaO2% (BldA) [Mass fraction] 95 % Say Schmid MD Work Phone: [facility] 04-20-2024 12:22-0400 Systolic blood pressure 124 mm[Hg] Say Schmid MD Work Phone: [facility] 04-18-2024 04:24-0400 Body mass index (BMI) [Ratio] 42.62 kg/m2 Say Schmid MD Work Phone: [facility] 04-18-2024 04:24-0400 Body weight 105.7 kg Say Schmid MD Work Phone: [facility] 04-17-2024 23:24-0400 Body height 157.5 cm Say Schmid MD Work Phone: [facility] 04-17-2024 21:30-0400 Diastolic blood pressure 91 mm[Hg] Anton Reinoso [facility] 04-17-2024 21:30-0400 Heart rate 104 /min Kaylinn Dokken [facility] 04-17-2024 21:30-0400 Mean blood pressure 109 mm[Hg] Kaylinn Dokken [facility] 04-17-2024 21:30-0400 Respiratory rate 21 /min Kaylinn Dokken [facility] 04-17-2024 21:30-0400 SaO2% (BldA) [Mass fraction] 97 % Kaylinn Dokken [facility] 04-17-2024 21:30-0400 Systolic blood pressure 145 mm[Hg] Kaylinn Dokken [facility] 04-17-2024 21:00-0400 Mean blood pressure 110 mm[Hg] Kaylinn Dokken [facility] 04-17-2024 21:00-0400 Respiratory rate 18 /min Kaylinn Dokken [facility] 04-17-2024 21:00-0400 SaO2% (BldA) [Mass fraction] 98 % Kaylinn Dokken [facility] 04-17-2024 21:00-0400 Systolic blood pressure 149 mm[Hg] Kaylinn Dokken [facility] 04-17-2024 20:00-0400 Diastolic blood pressure 75 mm[Hg] Kaylinn Dokken [facility] 04-17-2024 20:00-0400 Heart rate 99 /min Kaylinn Dokken [facility] 04-17-2024 20:00-0400 Mean blood pressure 97 mm[Hg] Kaylinn Dokken [facility] 04-17-2024 20:00-0400 Respiratory rate 27 /min Kaylinn Dokken [facility] 04-17-2024 20:00-0400 Systolic blood pressure 141 mm[Hg] Kaylinn Dokken [facility] 04-17-2024 06:00-0400 Body temperature 98.06 [degF] Kaylinn Dokken [facility] 04-17-2024 06:00-0400 Heart rate 224 /min Kaylinn Dokken [facility] 04-17-2024 06:00-0400 Respiratory rate 20 /min Kaylinn Dokken [facility] 04-13-2024 11:06-0400 Blood Pressure Location Mhd Al-Marrawi [facility] 04-13-2024 11:06-0400 Body temperature 97.88 [degF] Mhd Al-Marrawi [facility] 04-13-2024 11:06-0400 Diastolic blood pressure 84 mm[Hg] Mhd Al-Marrawi [facility] 04-13-2024 11:06-0400 Heart rate 101 /min Mhd Al-Marrawi [facility] 04-13-2024 11:06-0400 Mean blood pressure 96 mm[Hg] Mhd Al-Marrawi [facility] 04-13-2024 11:06-0400 Respiratory rate 16 /min Mhd Al-Marrawi [facility] 04-13-2024 11:06-0400 SaO2% (BldA) [Mass fraction] 98 % Mhd Al-Marrawi [facility] 04-13-2024 11:06-0400 Systolic blood pressure 120 mm[Hg] Mhd Al-Marrawi [facility] 04-07-2024 08:54-0400 Body mass index (BMI) [Ratio] 40.1 kg/m2 Neva Nataprawira DO Work Phone: [facility] 04-07-2024 08:54-0400 Body weight 104.33 kg Neva Nataprawira DO Work Phone: [facility] 04-07-2024 08:54-0400 Diastolic blood pressure 80 mm[Hg] Neva Nataprawira DO Work Phone: [facility] 04-07-2024 08:54-0400 Systolic blood pressure 132 mm[Hg] Neva Nataprawira DO Work Phone: [facility] 04-06-2024 10:53-0400 Blood Pressure Location Mhd Al-Marrawi [facility] 04-06-2024 10:53-0400 Body temperature 98.24 [degF] Mhd Al-Marrawi [facility] 04-06-2024 10:53-0400 Diastolic blood pressure 86 mm[Hg] Mhd Al-Marrawi [facility] 04-06-2024 10:53-0400 Heart rate 104 /min Mhd Al-Marrawi [facility] 04-06-2024 10:53-0400 Mean blood pressure 102 mm[Hg] Mhd Al-Marrawi [facility] 04-06-2024 10:53-0400 Respiratory rate 16 /min Mhd Al-Marrawi [facility] 04-06-2024 10:53-0400 SaO2% (BldA) [Mass fraction] 99 % d Al-Marrawi [facility] 04-06-2024 10:53-0400 Systolic blood pressure 135 mm[Hg] Mhd Al-Marrawi [facility] 04-01-2024 20:30-0400 Blood Pressure Location Neva Nataprawira [facility] 04-01-2024 20:30-0400 Diastolic blood pressure 74 mm[Hg] Neva Nataprawira [facility] 04-01-2024 20:30-0400 Heart rate 102 /min Neva Nataprawira [facility] 04-01-2024 20:30-0400 Hourly Rounding Neva Nataprawira [facility] Comment on above: Result Comment: pt sitting up in bed. de nies needs 04-01-2024 20:30-0400 Mean blood pressure 94 mm[Hg] Neva Nataprawira [facility] 04-01-2024 20:30-0400 Respiratory rate 18 /min Neva Nataprawira [facility] 04-01-2024 20:30-0400 Systolic blood pressure 135 mm[Hg] Neva Nataprawira [facility] 04-01-2024 19:00-0400 Body temperature 98.42 [degF] Neva Nataprawira [facility] 04-01-2024 19:00-0400 Diastolic blood pressure 87 mm[Hg] Neva Nataprawira [facility] 04-01-2024 19:00-0400 Heart rate 97 /min Neva Nataprawira [facility] 04-01-2024 19:00-0400 Hourly Rounding Neva Monra [facility] Comment on above: Result Comment: pt sittignup in bed. vit als obtained. discussed plan of care. pt denies needs at this time. call light within reach 04-01-2024 19:00-0400 Mean blood pressure 105 mm[Hg] Neva Natluis eawira [facility] 04-01-2024 19:00-0400 Systolic blood pressure 141 mm[Hg] Neva Nataprawira [facility] 04-01-2024 18:08-0400 Diastolic blood pressure 73 mm[Hg] Neva Nataprawira [facility] 04-01-2024 18:08-0400 Heart rate 100 /min Neva Monra [facility] 04-01-2024 18:08-0400 Mean blood pressure 98 mm[Hg] Neva Nataprawira [facility] 04-01-2024 18:08-0400 Systolic blood pressure 148 mm[Hg] Neva Nataprawira [facility] 04-01-2024 17:30-0400 Body temperature 98.24 [degF] Neva Nataprawira [facility] 03-30-2024 11:29-0400 Body temperature 98.6 [degF] Mhd Al-Marrawi [facility] 03-30-2024 11:29-0400 Diastolic blood pressure 67 mm[Hg] Mhd Al-Marrawi [facility] 03-30-2024 11:29-0400 Heart rate 84 /min Mhd Al-Marrawi [facility] 03-30-2024 11:29-0400 Mean blood pressure 78 mm[Hg] d Al-Marrawi [facility] 03-30-2024 11:29-0400 Respiratory rate 16 /min Mhd Al-Marrawi [facility] 03-30-2024 11:29-0400 SaO2% (BldA) [Mass fraction] 96 % Mhd Dc-Marrawi [facility] 03-30-2024 11:29-0400 Systolic blood pressure 99 mm[Hg] d Al-Marrawi [facility] 03-17-2024 11:54-0400 Body mass index (BMI) [Ratio] 39.41 kg/m2 Neva Nataprawira DO Work Phone: [facility] 03-17-2024 11:54-0400 Body weight 102.51 kg Neva Nataprawira DO Work Phone: [facility] 03-17-2024 11:54-0400 Diastolic blood pressure 80 mm[Hg] Neva Nataprawira DO Work Phone: [facility] 03-17-2024 11:54-0400 Systolic blood pressure 136 mm[Hg] Neva Nataprawira DO Work Phone: [facility] 02-10-2024 13:47-0400 Body mass index (BMI) [Ratio] 38.02 kg/m2 Fátima Garcia MD Work Phone: [facility] 02-10-2024 13:47-0400 Body weight 102.06 kg Fátima Garcia MD Work Phone: [facility] 01-01-2024 11:27-0400 Diastolic blood pressure 76 mm[Hg] Arturo Mon [facility] 01-01-2024 11:27-0400 Heart rate 93 /min Arturo Mtznus [facility] 01-01-2024 11:27-0400 SaO2% (BldA) [Mass fraction] 98 % Arturo Mtznus [facility] 01-01-2024 11:27-0400 Systolic blood pressure 136 mm[Hg] Arturo Mtznus [facility] 10-29-2023 21:56-0400 Diastolic blood pressure 83 mm[Hg] [facility] 10-29-2023 21:56-0400 Heart rate 86 /min [facility] 10-29-2023 21:56-0400 Mean blood pressure 100 mm[Hg] [facility] 10-29-2023 21:56-0400 Respiratory rate 18 /min [facility] 10-29-2023 21:56-0400 SaO2% (BldA) [Mass fraction] 99 % [facility] 10-29-2023 21:56-0400 Systolic blood pressure 134 mm[Hg] [facility] 10-29-2023 19:34-0400 Diastolic blood pressure 95 mm[Hg] [facility] 10-29-2023 19:34-0400 Heart rate 77 /min [facility] 10-29-2023 19:34-0400 Respiratory rate 18 /min [facility] 10-29-2023 19:34-0400 SaO2% (BldA) [Mass fraction] 100 % [facility] 10-29-2023 19:34-0400 Systolic blood pressure 130 mm[Hg] [facility] 10-29-2023 18:53-0400 Body temperature 97.7 [degF] [facility] 10-29-2023 18:53-0400 Diastolic blood pressure 106 mm[Hg] [facility] 10-29-2023 18:53-0400 Heart rate 86 /min [facility] 10-29-2023 18:53-0400 Respiratory rate 18 /min [facility] 10-29-2023 18:53-0400 SaO2% (BldA) [Mass fraction] 100 % [facility] 10-29-2023 18:53-0400 Systolic blood pressure 162 mm[Hg] [facility] 08-08-2023 09:00-0500 Blood Pressure Location Linda Talyor [facility] 08-08-2023 09:00-0500 Diastolic blood pressure 76 mm[Hg] Linda Taylor [facility] 08-08-2023 09:00-0500 Heart rate 94 /min Linda Taylor [facility] 08-08-2023 09:00-0500 Respiratory rate 18 /min Linda Taylor [facility] 08-08-2023 09:00-0500 SaO2% (BldA) [Mass fraction] 98 % [facility] 08-08-2023 09:00-0500 Systolic blood pressure 120 mm[Hg] [facility] 08-05-2023 15:00-0500 Blood Pressure Location Dyan Al-Juvenitno [facility] 08-05-2023 15:00-0500 Body temperature 97.7 [degF] Bind Al-Marrawi [facility] 08-05-2023 15:00-0500 Diastolic blood pressure 86 mm[Hg] Mhd Al-Marrawi [facility] 08-05-2023 15:00-0500 Heart rate 89 /min Mhd Al-Marrawi [facility] 08-05-2023 15:00-0500 Mean blood pressure 104 mm[Hg] Mhd Al-Marrawi [facility] 08-05-2023 15:00-0500 Respiratory rate 18 /min Mhd Al-Marrawi [facility] 08-05-2023 15:00-0500 SaO2% (BldA) [Mass fraction] 98 % Mhd Al-Marrawi [facility] 08-05-2023 15:00-0500 Systolic blood pressure 141 mm[Hg] Mhd Al-Marrawi [facility] 05-29-2023 09:45-0500 Diastolic blood pressure 85 mm[Hg] [facility] 05-29-2023 09:45-0500 Heart rate 80 /min Linda Taylor [facility] 05-29-2023 09:45-0500 Mean blood pressure 105 mm[Hg] Linda Taylor [facility] 05-29-2023 09:45-0500 Systolic blood pressure 145 mm[Hg] Linda [facility] 05-29-2023 08:35-0500 Blood Pressure Location [facility] 05-29-2023 08:35-0500 Body temperature 98.6 [degF] [facility] 05-29-2023 08:35-0500 Diastolic blood pressure 86 mm[Hg] Linda [facility] 05-29-2023 08:35-0500 Heart rate 107 /min Linda [facility] 05-29-2023 08:35-0500 Respiratory rate 20 /min Linda [facility] 05-29-2023 08:35-0500 SaO2% (BldA) [Mass fraction] 97 % [facility] 05-29-2023 08:35-0500 Systolic blood pressure 144 mm[Hg] [facility] 03-14-2023 09:38-0400 Body weight 96.16 kg Fátima Garcia MD Work Phone: [facility] 01-07-2023 08:34-0400 Body weight 97.52 kg Colin Dorseyo SONI Work Phone: [facility] 11-26-2022 10:51-0400 Body weight 102.[address] Work Phone: [facility] 09-14-2022 13:42-0500 Blood Pressure Location YAMILETH SIDELL [facility] 09-14-2022 13:42-0500 Body temperature 98.06 [degF] YAMILETH SIDELL [facility] 09-14-2022 13:42-0500 Diastolic blood pressure 82 mm[Hg] YAMILETH SIDELL [facility] 09-14-2022 13:42-0500 Heart rate 110 /min YAMILETH SIDELL [facility] 09-14-2022 13:42-0500 SaO2% (BldA) [Mass fraction] 94 % YAMILETH SIDELL [facility] 09-14-2022 13:42-0500 Systolic blood pressure 124 mm[Hg] YAMILETH SIDELL [facility] 12-07-2021 13:18-0400 Diastolic blood pressure 84 mm[Hg] Rose Marie Timmis [facility] 12-07-2021 13:18-0400 Heart rate 94 /min Rose Marie Timmis [facility] 12-07-2021 13:18-0400 Mean blood pressure 100 mm[Hg] Rose Marie Timmis [facility] 12-07-2021 13:18-0400 Respiratory rate 16 /min Rose Marie Timmis [facility] 12-07-2021 13:18-0400 SaO2% (BldA) [Mass fraction] 95 % Rose Marie Timmis [facility] 12-07-2021 13:18-0400 Systolic blood pressure 130 mm[Hg] Rose Marie Timmis [facility] 12-07-2021 13:18-0400 Blood Pressure Location Rose Marie Timmis [facility] 12-07-2021 12:30-0400 Blood Pressure Location Rose Marie Timmis [facility] 12-07-2021 12:30-0400 Diastolic blood pressure 92 mm[Hg] Rose Marie Timmis [facility] 12-07-2021 12:30-0400 Heart rate 88 /min Rose Marie Timmis [facility] 12-07-2021 12:30-0400 Respiratory rate 16 /min Rose Marie Timmis [facility] 12-07-2021 12:30-0400 SaO2% (BldA) [Mass fraction] 94 % Rose Marie Timmis [facility] 12-07-2021 12:30-0400 Systolic blood pressure 117 mm[Hg] Rose Marie Timmis [facility] 12-07-2021 12:25-0400 Body temperature 97.16 [degF] Rose Marie Timmis [facility] 12-07-2021 12:25-0400 Diastolic blood pressure 89 mm[Hg] Rose Marie Timmis [facility] 12-07-2021 12:25-0400 Respiratory rate 16 /min Rose Marie Timmis [facility] 12-07-2021 12:25-0400 SaO2% (BldA) [Mass fraction] 98 % Rose Marie Timmis [facility] 12-07-2021 12:25-0400 Systolic blood pressure 128 mm[Hg] Rose Marie Timmis [facility] 12-07-2021 12:15-0400 Heart rate 96 /min Rose Marie Timmis [facility] 12-07-2021 12:15-0400 Respiratory rate 16 /min Rose Marie Timmis [facility] 12-07-2021 12:00-0400 Respiratory rate 18 /min Rose Marie Timmis [facility] 12-07-2021 11:26-0400 Body temperature 97.16 [degF] Rose Marie Timmis [facility] 12-07-2021 11:20-0400 Respiratory rate 24 /min Rose Marie Timmis [facility] 12-07-2021 06:50-0400 Mean blood pressure 92 mm[Hg] Rose Marie Barkers [facility] 12-07-2021 06:50-0400 Heart rate 100 /min Rose Marie Barkers [facility] 12-07-2021 06:49-0400 Body temperature 98.06 [degF] Rose Marie Barkers [facility] 12-07-2021 06:49-0400 Mean blood pressure 101 mm[Hg] Rose Marieniels Vázquez [facility] Encounters Encounter Date Encounter Type Care Provider Facility Start: 09-08-2024 ambulatory [facility] Facility: [facility] Start: 08-31-2024 End: 08-31-2024 Patient encounter procedure Vonda SUMNER Work Phone: [facility] Comment on above: De Quervain's tenosy novitis, left (Primary Dx); Right wrist pain; De Quervain's tenosynovitis, right Start: 08-31-2024 End: 08-31-2024 ambulatory VONDA CORREA Not Available Start: 08-07-2024 End: 08-07-2024 [facility] Start: 08-06-2024 End: 08-06-2024 ambulatory JOSSELYN SORIA Not Available Start: 08-06-2024 End: 08-06-2024 Patient encounter procedure Josselyn Soria [employer] Work Phone: [facility] Comment on above: Encounter for IUD in sertion (Primary Dx) Start: 07-29-2024 End: 07-29-2024 Bamboo flowsheet Vonda Correa PA Work Phone: [facility] Start: 07-29-2024 End: 07-29-2024 Bamboo flowsheet Vonda Correa PA Work Phone: [facility] Start: 07-29-2024 End: 07-29-2024 Patient encounter procedure Vonda Correa PA Work Phone: [facility] Comment on above: Tendinitis, de Querv ain's (Primary Dx); Left wrist pain Start: 07-29-2024 End: 07-29-2024 ambulatory VONDA CORREA Not Available Start: 07-13-2024 End: 07-13-2024 Refill Neva Pearson DO Work Phone: [facility] Comment on above: related co ndition, second trimester; Gastroesophageal reflux disease, unspecified whether esophagitis present Start: 07-07-2024 End: 07-07-2024 ambulatory NEVA PEARSON Not Available Start: 07-07-2024 End: 07-07-2024 Office outpatient visit 15 minutes Neva Pearson DO Work Phone: [facility] Comment on above: examinati on following vaginal delivery (Primary Dx); Screening for malignant neoplasm of cervix; Encounter for screening for human papillomavirus (HPV); Family planning counseling; Oral contraception initiation; Current moderate episode of major depressive disorder, unspecified whether recurrent (HCC) (CMS/HCC) Start: 07-06-2024 End: 07-06-2024 ambulatory Iraida L [facility] Facility[facility] Start: 07-02-2024 ambulatory [facility]ida [facility] Facility:[facility] Start: 06-30-2024 End: 06-30-2024 Office outpatient visit 25 minutes Ronda Sandy MD Work Phone: [facility] Comment on above: SVT (supraventricula r tachycardia) (CMS-HCC) (Primary Dx); Chronic hypertension; Hypothyroidism, unspecified type; Encounter for visit; Bipolar affective disorder, currently depressed, mild (Multi); PCOS (polycystic ovarian syndrome) Start: 06-30-2024 End: 06-30-2024 ambulatory RONDA SANDY [facility] Start: 06-28-2024 End: 06-28-2024 Emergency department patient visit Kylah Rivas [facility] Start: 06-22-2024 End: 06-22-2024 ambulatory [facility] Start: 06-22-2024 End: 06-22-2024 Patient encounter procedure d Jose Roberto HerrJuventino [facility] Start: 06-19-2024 End: 06-19-2024 ambulatory [facility] Facility:[facility] Start: 06-19-2024 End: 06-19-2024 Patient encounter procedure [facility] Start: 06-19-2024 End: 06-19-2024 [facility] Start: 06-19-2024 End: 06-19-2024 Patient encounter procedure [facility] Start: 06-16-2024 End: 06-16-2024 ambulatory [facility] Amb[facility] Start: 06-16-2024 End: 06-16-2024 Office outpatient visit 25 minutes Rubén Núñez MD Work Phone: [facility] Comment on above: SVT (supraventricula r tachycardia) ([facility]); Essential hypertension; BMI 39.0-39.9,adult; Never smoked tobacco Start: 06-03-2024 End: 06-03-2024 ambulatory [facility] Work Phone: Start: 06-03-2024 End: 06-03-2024 Patient encounter procedure [facility] Brenda Work Phone: Start: 05-30-2024 End: 05-30-2024 Emergency department patient visit Markus Elkins [facility] Start: 05-24-2024 End: 05-27-2024 Evaluation and management of inpatient Tal Robles MD Work Phone: [facility] 5 Comment on above: with 35 co mpleted weeks gestation ([facility]) (Primary Dx); state ([facility]) Start: 05-24-2024 End: 05-24-2024 Emergency department patient visit Cat Gottlieb [facility] Start: 05-19-2024 End: 05-19-2024 ambulatory Mhd Yaser Al-Celerajanee Facility:[facility] Start: 05-19-2024 End: 05-19-2024 Patient encounter procedure Mhd Yaser Al-Celerajanee [facility] Start: 05-19-2024 End: 05-19-2024 ambulatory Neva Pearson Facility:[facility] Start: 05-19-2024 End: 05-19-2024 Patient encounter procedure Neva Pearson [facility] Start: 05-19-2024 End: 05-19-2024 ambulatory [facility] Shivam [facility] Ambulatory Start: 05-19-2024 End: 05-19-2024 Office consultation new/estab patient 60 min Rubén Núñez MD Work Phone: [facility] Comment on above: SVT (supraventricula r tachycardia) ([place]); Paroxysmal atrial fibrillation (Multi); Never smoked tobacco; with 35 completed weeks gestation ([facility]) Start: 05-12-2024 End: 05-12-2024 Telephone encounter Neva Pearson DO Work Phone: [facility] Start: 05-11-2024 End: 05-11-2024 ambulatory Mhd Yaser Al-Marrawi Facility:[facility] Start: 05-11-2024 End: 05-11-2024 Patient encounter procedure Mhd Yaser Al-Marrawi [facility] Start: 05-11-2024 End: 06-16-2024 Pre-admission assessment Mhd Yaser Al-Marrawi [facility] Start: 05-06-2024 End: 05-06-2024 Bamboo flowsheet Neva Bobo Nataprawira DO Work Phone: [facility] Start: 05-06-2024 End: 05-06-2024 Bamboo flowsheet Neva J Nataprawira DO Work Phone: [facility] Start: 05-06-2024 End: 05-06-2024 Office outpatient visit 25 minutes Neva Bobo Nataprawira DO Work Phone: [facility] Comment on above: related co ndition in third trimester (Primary Dx); 33 weeks gestation of ; Supraventricular tachycardia during (CMS/HCC); Gastroesophageal reflux disease, unspecified whether esophagitis present; Obesity during in third trimester; Hypothyroid in , antepartum (CMS/HCC); Advanced maternal age in multigravida, third trimester Start: 05-06-2024 End: 05-06-2024 ambulatory NEVA PEARSON Not Available Start: 05-05-2024 End: 05-05-2024 ambulatory RONDA Trisha [facility] Start: 05-04-2024 End: 05-04-2024 ambulatory Mhd Yaser Al-Marrawi Facility:[facility] Start: 05-04-2024 End: 05-04-2024 Patient encounter procedure Mhd Yaser Al-Marrawi [facility] Start: 04-27-2024 End: 04-27-2024 ambulatory Mhd Yaser Al-Marrawi Facility:[facility] Start: 04-27-2024 End: 04-27-2024 Patient encounter procedure Mhd Yaser Al-Marrawi [facility] Start: 04-23-2024 End: 04-23-2024 Office outpatient visit 25 minutes Josselyn Soria PREPARING BOX TENDER Work Phone: [facility] Comment on above: Supraventricular tac hycardia during (CMS/HCC) (Primary Dx); 31 weeks gestation of ; related condition in third trimester; Gastroesophageal reflux disease, unspecified whether esophagitis present; Obesity during in third trimester; Hypothyroid in , antepartum (CMS/HCC); Advanced maternal age in multigravida, third trimester Start: 04-23-2024 End: 04-23-2024 ambulatory JOSSELYN SORIA Not Available Start: 04-20-2024 End: 04-21-2024 Pre-admission assessment Mhd Yaser Al-Marrawi [facility] Start: 04-17-2024 End: 04-20-2024 Evaluation and management of inpatient [facility] Work Phone: Comment on above: SVT (supraventricula r tachycardia) (CMS-HCC) (Primary Dx) Start: 04-17-2024 End: 04-17-2024 Emergency department patient visit Anton Reinoso [facility] Start: 04-13-2024 End: 04-13-2024 ambulatory Mhd Yaser Al-Marrawi Facility:[facility] Start: 04-13-2024 End: 04-13-2024 Patient encounter procedure Mhd Yaser Al-Marrawi [facility] Start: 04-07-2024 End: 04-07-2024 Bamboo flowsheet Neva Pearson DO Work Phone: [facility] Start: 04-07-2024 End: 04-07-2024 Bamboo flowsheet Neva Bobo Nataprawira DO Work Phone: [facility] Start: 04-07-2024 End: 04-07-2024 Office outpatient visit 25 minutes Neva Bobo Michel DO Work Phone: [facility] Comment on above: related co ndition in third trimester (Primary Dx); 29 weeks gestation of ; Gastroesophageal reflux disease, unspecified whether esophagitis present; Obesity during in third trimester; Hypothyroid in , antepartum ([facility]); Advanced maternal age in multigravida, third trimester Start: 04-07-2024 End: 04-07-2024 ambulatory NEVA PEARSON Not Available Start: 04-06-2024 End: 04-06-2024 ambulatory dago Ernandez Facility:[facility] Start: 04-06-2024 End: 04-06-2024 Patient encounter procedure dago HerrJuventino [facility] Start: 04-06-2024 End: 04-07-2024 Pre-admission assessment [facility] Jose Roberto Ernandez [facility] Start: 04-01-2024 End: 04-01-2024 ambulatory DO Neva Pearson Facility:[facility] Start: 04-01-2024 End: 04-01-2024 Patient encounter procedure Neva Pearson [facility] Start: 04-01-2024 End: 04-01-2024 Clinisync Result Encounter Neva Pearson DO Work Phone: [facility] Unsolicited Start: 04-01-2024 End: 04-01-2024 Clinisync Result Encounter Neva Bobo Michel DO Work Phone: [facility] Unsolicited Start: 03-30-2024 End: 03-30-2024 ambulatory MD Dyan Ernandez Facility:[facility] Start: 03-30-2024 End: 03-30-2024 Patient encounter procedure dago Ernandez [facility] Start: 2024 End: 2024 Clinisync Result Encounter Neva Pearson DO Work Phone: [facility] Unsolicited Start: 2024 End: 2024 Clinisync Result Encounter Neva Pearson DO Work Phone: [facility] Unsolicited Start: 2024 End: 2024 ambulatory d Jose Roberto Ernandez Facility:[facility] Start: 2024 End: 2024 Patient encounter procedure Neva Pearson [facility] Start: 03-20-2024 End: 03-23-2024 Refill Fátima Williamson MD Work Phone: Endocrinology Comment on above: Refill Request Start: 03-17-2024 End: 03-17-2024 Bamboo flowsheet Neva Pearson DO Work Phone: [facility] Start: 03-17-2024 End: 03-17-2024 Bamboo flowsheet Neva Pearson DO Work Phone: [facility] Start: 03-17-2024 End: 03-17-2024 Office outpatient visit 25 minutes Neva Pearson DO Work Phone: [facility] Comment on above: related co ndition, second trimester (Primary Dx); 26 weeks gestation of ; Gastroesophageal reflux disease, unspecified whether esophagitis present; Other obesity affecting in second trimester; Hypothyroid in , antepartum (CMS/HCC); Advanced maternal age in multigravida, second trimester; Supraventricular tachycardia during (CMS/HCC); Screening for diabetes mellitus Start: 03-17-2024 End: 03-17-2024 ambulatory NEVA PEARSON Not Available Start: 02-17-2024 End: 02-17-2024 ambulatory NEVA PEARSON Not Available Start: 02-10-2024 End: 02-10-2024 ambulatory GUERDA METCALF Facility:[facility] Start: 02-10-2024 End: 02-10-2024 Patient encounter procedure Fátima Williamson MD Work Phone: Endocrinology Comment on above: Acquired hypothyroid ism (Primary Dx) Start: 02-10-2024 End: 02-10-2024 Telemedicine consultation with patient Fátima Garcia MD Work Phone: Endocrinology Start: 02-06-2024 End: 02-06-2024 ambulatory FÁTIMA WILLIAMSON V Facility:[facility] Start: 02-05-2024 End: 02-05-2024 ambulatory Arturo Mon Facility:[facility] Start: 02-05-2024 End: 02-05-2024 Patient encounter procedure Arturo Mon [facility] Start: 01-21-2024 End: 01-21-2024 ambulatory Neva Pearson Facility:[facility] Start: 01-21-2024 End: 01-21-2024 Lab Drop off Neva Pearson [facility] Start: 01-20-2024 End: 01-20-2024 Patient encounter procedure Neva Pearson [facility] Start: 01-20-2024 End: 01-20-2024 ambulatory Neva Pearson Facility:[facility] Start: 01-14-2024 End: 01-14-2024 ambulatory Arturo Mon Facility:[facility] Start: 01-14-2024 End: 01-14-2024 Patient encounter procedure Arturo Mon [facility] Start: 01-01-2024 End: 01-01-2024 ambulatory ZELALEM SORIA Facility:[facility] Start: 01-01-2024 End: 01-01-2024 Patient encounter procedure Arturojeanine Mon [facility] Start: 12-25-2023 ambulatory ZELALEM SORIA Facility:[facility] Start: 12-25-2023 End: 12-25-2023 ambulatory JOSSELYN SORIA Not Available Start: 11-27-2023 End: 11-27-2023 ambulatory JOSSELYN SORIA Not Available Start: 11-13-2023 End: 11-13-2023 ambulatory DO Neva Pearson Facility:[facility] Start: 11-13-2023 End: 11-13-2023 Patient encounter procedure Neva Pearson [facility] Start: 11-13-2023 ambulatory Domo Camilo ty:NIYA Medeiros Start: 10-30-2023 End: 10-30-2023 ambulatory VONDA CORREA Not Available Start: 10-29-2023 End: 10-29-2023 Emergency department patient visit Cat Pugh Bull [facility] Start: 10-16-2023 End: 10-16-2023 ambulatory DO Neva Pearson Facility:[facility] Start: 10-16-2023 End: 10-16-2023 Patient encounter procedure Neva Pearson [facility] Start: 10-14-2023 End: 10-14-2023 Patient encounter procedure Neva Pearson [facility] Start: 10-14-2023 End: 10-14-2023 ambulatory DO Neva Pearson Facility:[facility] Start: 10-10-2023 End: 10-10-2023 ambulatory NEVA PEARSON Not Available Start: 10-09-2023 ambulatory Fátima adhikari MD Work Phone: Endocrinology Comment on above: Start: 09-24-2023 End: 09-24-2023 ambulatory GUERDA METCALF Facility:[facility] Start: 09-20-2023 End: 09-20-2023 ambulatory FÁTIMA WILLIAMSON V Facility:[facility] Start: 09-16-2023 End: 09-16-2023 ambulatory Linda Taylor Facility:[facility] Start: 08-08-2023 End: 08-08-2023 ambulatory Linda Taylor Facility:[facility] Start: 08-08-2023 End: 08-08-2023 Patient encounter procedure Linda Taylor [facility] Start: 08-05-2023 End: 08-05-2023 ambulatory MD Dyan Ernandez Facility:[facility] Start: 08-05-2023 End: 08-05-2023 Patient encounter procedure Dyan Cid Al-Juventino [facility] Start: 07-25-2023 End: 07-25-2023 ambulatory MD Dyan Ernandez Facility:[facility] Start: 07-25-2023 End: 07-25-2023 Lab Drop off Dyan Herr-Juventino [facility] Start: 07-05-2023 End: 07-05-2023 ambulatory MD Dyan Ernandez Facility:[facility] Start: 07-05-2023 End: 07-05-2023 Patient encounter procedure Dyan Cid Al-Juventino [facility] Start: 07-01-2023 End: 07-01-2023 ambulatory MD Dyan Cid Gracielawarner Facility:[facility] Start: 07-01-2023 End: 07-01-2023 Patient encounter procedure Dyan Lópezjanee [facility] Start: 06-25-2023 End: 06-25-2023 ambulatory MD Dyan Cid NemesioCelewarner Facility:[facility] Start: 06-25-2023 End: 06-25-2023 Patient encounter procedure dago Lópezjanee [facility] Start: 06-25-2023 End: 06-25-2023 ambulatory MD Dyan Cid NemesioCelewarner Facility:[facility] Start: 05-29-2023 End: 05-29-2023 ambulatory Linda Taylor Facility:[facility] Start: 05-29-2023 End: 05-29-2023 Patient encounter procedure Linda Taylor [facility] Start: 05-29-2023 End: 05-29-2023 ambulatory Linda Taylor Facility:[facility] Start: 05-29-2023 End: 05-29-2023 Patient encounter procedure Linda Taylor [facility] Start: 05-29-2023 End: 05-29-2023 Well adult monitoring check done Linda Taylor [facility] Start: 05-27-2023 ambulatory Linda Taylor [facility] y:Mala Start: 05-12-2023 End: 05-12-2023 ambulatory Rocco Connors Facility:[facility] Start: 03-14-2023 End: 03-14-2023 ambulatory Fátima Williamson MD Work Phone: Endocrinology Comment on above: Class 2 obesity due to excess calories with body mass index (BMI) of 38.0 to 38.9 in adult, unspecified whether serious comorbidity present (Primary Dx); Acquired hypothyroidism; Hyperandrogenemia Start: 03-14-2023 End: 03-14-2023 Telemedicine consultation with patient Fátima Garcia MD Work Phone: SHIVAM HIDALGO [facility] Start: 01-07-2023 End: 01-07-2023 ambulatory Colin Dorseyashley SHAFER Work Phone: Diabetic Education [facility] Comment on above: Class 2 obesity due to excess calories with body mass index (BMI) of 38.0 to 38.9 in adult, unspecified whether serious comorbidity present (Primary Dx) Start: 01-07-2023 End: 01-07-2023 Telemedicine consultation with patient Colin Gr RD Work Phone: [facility] Start: 11-28-2022 Telephone encounter Fátima ponce MD Work Phone: Internal Medicine Comment on above: Results Start: 11-26-2022 End: 11-26-[address] Work Phone: Diabetic Education [facility] Comment on above: Class 3 severe obesi ty due to excess calories without serious comorbidity with body mass index (BMI) of 40.0 to 44.9 in adult (HCC) (Primary Dx) Start: 11-26-2022 End: 11-26-2022 Telemedicine consultation with patient Colin Gr RD Work Phone: [facility] Start: 09-14-2022 End: 09-14-2022 Patient encounter procedure YAMILETH DAWSON [facility] Start: 06-11-2022 End: 06-11-2022 Patient encounter procedure Emma Sharma [facility] Start: 01-11-2022 End: 01-11-2022 Off-Site Emma Thomasparul [facility] Start: 01-09-2022 Get Medical Advice Tomeka mack MD Work Phone: Endocrinology Comment on above: Forgot blood work bu t need refill to take it Start: 12-27-2021 Refill Tomeka arechiga MD Work Phone: Endocrinology Comment on above: Refill Request Start: 12-07-2021 End: 12-07-2021 Admission to same day surgery center Rose Marie Lexy Roger [facility] Start: 12-02-2021 End: 12-03-[address] DOCTOR SIMMONS Facility: Start: 10-23-2017 End: 10-23-2017 Ambulatory [facility] Start: 10-09-2017 End: 10-09-2017 Ambulatory [facility] Start: 08-28-2017 End: 08-28-2017 [facility] Procedures Date Procedure Procedure Detail Performing Clinician Start: 08-31-2024 Arthrocentesis aspir &/inj interm jt/burs w/us Vonda SUMNER Work Phone: Start: 08-31-2024 Radex wrist complete minimum 3 views Vonda Correa PA Work Phone: Start: 08-06-2024 IUD INSERTION Josselyn Soria PREPARING BOX TENDER Work Phone: Start: 07-29-2024 Arthrocentesis aspir &/inj interm jt/burs w/us Vonda Correa PA Work Phone: Start: 07-29-2024 Radex wrist complete minimum 3 views Vonda Correa PA Work Phone: Start: 07-07-2024 Microscopic observat ion [Identifier] in Cervix by Cyto stain Neva Pearson DO Work Phone: Start: 05-27-2024 Assay of magnesium Jasm rey Jamison 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 [employer] Work Phone: Start: 05-24-2024 PREPARE RBC Misty cárdenas MD Work Phone: Start: 05-24-2024 Cul prsmptv pthgnc o rganism scrn w/colony estimj Bryon Whiting MD Work Phone: Start: 05-24-2024 Blood typing serolog ic rh (d) Bryon Whiting MD Work Phone: Start: 05-24-2024 Comprehensive metabo lic panel Misty Delgado MD Work Phone: Start: 05-19-2024 Ecg routine ecg w/le ast 12 lds w/i&r Rubén Núñez MD Work Phone: Start: 05-06-2024 Urnls dip stick/tabl et rgnt non-auto w/o micrscp Neva Bobo Michel DO Work Phone: Start: 04-23-2024 Urnls dip stick/tabl et rgnt non-auto w/o micrscp Josselyn Soria NP Work Phone: Start: 04-20-2024 Glucose quantitative blood xcpt reagent strip Colin Metz MD Work Phone: Start: 04-20-2024 Us preg uterus after 1st trimest 07/22 gestation Ghada Grimaldo MD Work Phone: Start: 04-20-2024 Glucose quantitative blood xcpt reagent strip Colin Metz MD Work Phone: Start: 04-19-2024 Glucose quantitative blood xcpt reagent strip Colin Metz MD Work Phone: Start: 04-19-2024 Glucose quantitative blood xcpt reagent strip Colin Metz MD Work Phone: Start: 04-19-2024 Glucose quantitative blood xcpt reagent strip Colin Metz MD Work Phone: Start: 04-18-2024 Glucose quantitative blood xcpt reagent strip Colin Metz MD Work Phone: Start: 04-18-2024 Glucose quantitative blood xcpt reagent strip Colin Metz MD Work Phone: Start: 04-18-2024 Echo tthrc r-t 2d w/ wom-mode compl spec&colr d Ghada Grimaldo MD Work Phone: Start: 04-18-2024 End: 04-18-2024 Assay of triiodothyronine t3 total tt3 Aide Richards MD Work Phone: Start: 04-18-2024 End: 04-18-2024 Basic metabolic panel calcium total Aide Richards MD Work Phone: Start: 04-18-2024 Blood typing serolog ic rh (d) Ghada Grimaldo MD Work Phone: Start: 04-18-2024 Ecg routine ecg w/le ast 12 lds trcg only w/o i&r Ghada Grimaldo MD Work Phone: Start: 04-18-2024 Glucose quantitative blood xcpt reagent strip Colin Metz MD Work Phone: Start: 04-18-2024 Thyrotropin [Units/v olume] in Serum or Plasma Say Schmid MD Work Phone: Start: 04-18-2024 Comprehensive metabo lic panel Ghada Grimaldo MD Work Phone: Start: 04-07-2024 Urnls dip stick/tabl et rgnt non-auto w/o micrscp Neva Pearson DO Work Phone: Start: 04-01-2024 UA WITH CULT RFLX Neva Pearson DO Work Phone: Start: 2024 [facility] GEST SCR GLU 1 HR Neva J Nataprawira DO Work Phone: Start: 03-17-2024 Urnls dip stick/tabl et rgnt non-auto w/o micrscp Neva Jeramie Nataprawira DO Work Phone: Start: 12-07-2021 Ethmoidectomy and turbinectomy Rose Marie Vázquez Start: 02-28-2017 Dental Rose Marie simmons Comment on above: wisdom teeth Start: 07-22-2007 Cholecystectomy Rose Marie Vázquez Plan of Treatment Date Care Activity Detail Author Start: 2036 Zoster Vaccines (1 of 2) Zoster Vaccines (1 of 2) [facility] Start: 04-20-2034 DTaP/Tdap/Td Vaccines (3 - Td or Tdap) DTaP/Tdap/Td Vaccines (3 - Td or Tdap) [facility] Start: 07-07-2027 Screening for malignant neoplasm of cervix [facility] Start: 08-20-2026 Urine microalbumin profile DTaP,Tdap,Td Vaccine (3 - Td or Tdap) [facility] Start: 07-13-2025 End: 07-13-2025 Patient encounter procedure 07/13/2025 9:20 AM EST Office Visit [facility] [address] [phone] Josselyn Soria, PREPARING BOX TENDER [address] [place] [address] [facility] Start: 04-20-2025 Diabetes mellitus screening Diabetes Screening [facility] Start: 04-18-2025 Thyroid stimulating hormone measurement TSH Level [facility] Start: 10-16-2024 End: 10-16-2024 Patient encounter procedure 10/16/2024 2:50 PM EDT Office Visit [facility] [address] [facility] [address] [place] [phone] Rubén Núñez MD [address] [facility] [address] [place] [address] [facility] Start: 09-08-2024 End: 09-08-2024 Patient encounter procedure 09/08/2024 2:00 PM EST Office Visit [facility] [address] MI[address] [phone] Josselyn Soria, PREPARING BOX TENDER [address] [place] [address] [facility] Start: 08-31-2024 End: 08-31-2024 Patient encounter procedure 08/31/2024 9:30 AM EST Office Visit [facility] [address] [place] [phone] Vonda Correa PA [address] [place] [address] [facility] Start: 08-25-2024 End: 08-25-2024 Patient encounter procedure 08/25/2024 9:20 AM EST Office Visit [facility] [address] [phone] Josselyn Soria, ROSEMARY [address] [place] [address] [facility] Start: 07-30-2024 Screening for malignant neoplasm of cervix [facility] Start: 07-29-2024 End: 07-29-2024 Patient encounter procedure [facility] Comment on above: Arrived Start: 06-30-2024 End: 06-30-2024 Patient encounter procedure 06/30/2024 2:00 PM EST Office Visit [facility] [address] [place] [place] [phone] [place] [address] [address] 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 [address] [facility] Start: 06-24-2024 Varicella vaccination Varicella Vaccines (1 of 2 - 13+ 2-dose series) [facility] Start: 06-16-2024 End: 06-16-2024 Patient encounter procedure 06/16/2024 2:50 PM EST Office Visit [facility] [address] [facility] [address] [place] [phone] Rubén Núñez MD [address] [facility] [address] [place] [address] [facility] Start: 05-26-2024 End: 05-26-2024 Patient encounter procedure [facility] Start: 05-21-2024 End: 05-21-2024 Patient encounter procedure 05/21/2024 9:40 AM EDT Routine [facility] [address] [facility] [address] [place] [address] Josselyn Soria NP [address] [place] [address] [facility] Start: 05-06-2024 End: 05-06-2024 Patient encounter procedure [facility] Comment on above: related condition in third tri mester (Primary Dx); 33 weeks gestation of ; Supraventricular tachycardia during (CMS/HCC); Gastroesophageal reflux disease, unspecified whether esophagitis present; Obesity during in third trimester; Hypothyroid in , antepartum (CMS/HCC); Advanced maternal age in multigravida, third trimester Start: 05-05-2024 End: 05-05-2024 Patient encounter procedure 05/05/2024 2:30 PM EDT Routine [facility] [address] [facility] [place] [id number] [place] [address] [address] [facility] 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 [address] [facility] Start: 04-23-2024 End: 04-23-2024 Patient encounter procedure 04/23/2024 11:00 AM EDT Routine [facility] [address] [address] Josselyn Soria NP [address] [place] [address] [facility] Start: 04-23-2024 End: 04-23-2024 Professional / ancillary services management 04/23/2024 10:00 AM EDT Ancillary Procedure [facility] [address] [address] [facility] Start: 04-20-2024 End: 04-20-2025 Holter monitor study [facility] Service Area Work Phone: Comment on above: Once for 1 Occurrences starting 04/20/20 until 04/20/2024 Expected: 04/20/2024 , Expires: 04/20/2025 Start: 04-15-2024 End: 04-15-2024 ambulatory 04/15/2024 9:15 AM EDT Results Only [facility] [address] [place] [address] [place] [address] [facility] Start: 04-12-2024 End: 07-12-2024 Thyrotropin [Units/volume] in Serum or Plasma THYROID STIMULATING HORMONE Lab Routine Acquired hypothyroidism Expected: 04/12/2024 (Approximate), Expires: 07/12/2024 [facility] Work Phone: Comment on above: Expected: 04/12/2024 (Approximate), Expi res: 07/12/2024 Start: 04-07-2024 End: 04-07-2024 Patient encounter procedure [facility] Comment on above: related condition in third tri mester (Primary Dx); 29 weeks gestation of ; Gastroesophageal reflux disease, unspecified whether esophagitis present; Obesity during in third trimester; Hypothyroid in , antepartum (CMS/HCC); Advanced maternal age in multigravida, third trimester Start: 03-22-2024 COVID-19 Vaccine ( season) COVID-19 Vaccine () [facility] Start: 03-22-2024 Covid-19 Vaccine () Covid-19 Vaccine () [facility] Start: 03-22-2024 COVID-19 Vaccine () COVID-19 Vaccine () [facility] Start: 03-22-2024 Influenza vaccination Influenza Vaccine (#1) [facility] Start: 03-17-2024 End: 03-17-2024 Patient encounter procedure 03/17/2024 11:45 AM EDT Routine [facility] [address] [facility] [address] [address] Neva Pearson DO [address] [address] related condition, second trimester (Primary Dx); 26 weeks gestation of ; Gastroesophageal reflux disease, unspecified whether esophagitis present; Other obesity affecting in second trimester; Elevated blood pressure affecting in second trimester, antepartum; Hypothyroid in , antepartum (CMS/HCC); Advanced maternal age in multigravida, second trimester; Supraventricular tachycardia during (CMS/HCC); Screening for diabetes mellitus [facility] Comment on above: related condition, second trim karuna (Primary Dx); 26 weeks gestation of ; Gastroesophageal reflux disease, unspecified whether esophagitis present; Other obesity affecting in second trimester; Elevated blood pressure affecting in second trimester, antepartum; Hypothyroid in , antepartum (CMS/HCC); Advanced maternal age in multigravida, second trimester; Supraventricular tachycardia during (CMS/HCC); Screening for diabetes mellitus Start: 09-14-2023 End: 11-14-2023 DHEA-S BLD DHEA-S BLD Lab Routine Class 2 obesity due to excess calories with body mass index (BMI) of 38.0 to 38.9 in adult, unspecified whether serious comorbidity present Acquired hypothyroidism Hyperandrogenemia Expected: 09/14/2023, Expires: 11/14/2023 [facility] Work Phone: Comment on above: Expected: 09/14/2023, Expires: Start: 09-14-2023 End: 11-14-2023 Insulin [Units/volume] in Serum or Plasma INSULIN ASSAY BLOOD Lab Routine Class 2 obesity due to excess calories with body mass index (BMI) of 38.0 to 38.9 in adult, unspecified whether serious comorbidity present Acquired hypothyroidism Hyperandrogenemia Expected: 09/14/2023, Expires: 11/14/2023 [facility] Work Phone: Comment on above: Expected: 09/14/2023, Expires: Start: 09-14-2023 End: 11-14-2023 Lipid 1996 panel - Serum or Plasma LIPID PANEL BASIC Lab Routine Class 2 obesity due to excess calories with body mass index (BMI) of 38.0 to 38.9 in adult, unspecified whether serious comorbidity present Acquired hypothyroidism Hyperandrogenemia Expected: 09/14/2023, Expires: 11/14/2023 [facility] Work Phone: Comment on above: Expected: 09/14/2023, Expires: Start: 09-14-2023 End: 11-14-2023 Testosterone [Mass/volume] in Serum or Plasma TESTOSTERONE TOTAL Lab Routine Class 2 obesity due to excess calories with body mass index (BMI) of 38.0 to 38.9 in adult, unspecified whether serious comorbidity present Acquired hypothyroidism Hyperandrogenemia Expected: 09/14/2023, Expires: 11/14/2023 [facility] Work Phone: Comment on above: Expected: 09/14/2023, Expires: Start: 09-14-2023 End: 11-14-2023 Thyrotropin [Units/volume] in Serum or Plasma TSH BLD Lab Routine Class 2 obesity due to excess calories with body mass index (BMI) of 38.0 to 38.9 in adult, unspecified whether serious comorbidity present Acquired hypothyroidism Hyperandrogenemia Expected: 09/14/2023, Expires: 11/14/2023 [facility] Work Phone: Comment on above: Expected: 09/14/2023, Expires: Start: 09-14-2023 End: 11-14-2023 Thyroxine (T4) free [Mass/volume] in Serum or Plasma T4 FREE/FREE THYROX Lab Routine Class 2 obesity due to excess calories with body mass index (BMI) of 38.0 to 38.9 in adult, unspecified whether serious comorbidity present Acquired hypothyroidism Hyperandrogenemia Expected: 09/14/2023, Expires: 11/14/2023 [facility] Work Phone: Comment on above: Expected: 09/14/2023, Expires: Start: 09-14-2023 End: 11-14-2023 Triiodothyronine (T3) Free [Mass/volume] in Serum or Plasma T3 FREE BLD Lab Routine Class 2 obesity due to excess calories with body mass index (BMI) of 38.0 to 38.9 in adult, unspecified whether serious comorbidity present Acquired hypothyroidism Hyperandrogenemia Expected: 09/14/2023, Expires: 11/14/2023 [facility] Work Phone: Comment on above: Expected: 09/14/2023, Expires: Start: 07-22-2023 Behavioral Health Screening Behavioral Health Screening [facility] Start: 07-22-2023 Depression Assessment Depression Assessment [facility] Start: 03-22-2023 Covid-19 Vaccine () Covid-19 Vaccine () [facility] Start: 03-22-2023 Influenza vaccination INFLUENZA (#1) [facility] Start: 07-22-2022 DEPRESSION ASSESSMENT DEPRESSION ASSESSMENT [facility] Start: 01-09-2022 End: 03-11-2022 Thyrotropin [Units/volume] in Serum or Plasma TSH BLD Lab Routine Acquired hypothyroidism Expected: 01/09/2022, Expires: 03/11/2022 [facility] Work Phone: Comment on above: Expected: 01/09/2022, Expires: 2 Start: 01-09-2022 End: 03-11-2022 Thyroxine (T4) free [Mass/volume] in Serum or Plasma T4 FREE/FREE THYROX Lab Routine Acquired hypothyroidism Expected: 01/09/2022, Expires: 03/11/2022 [facility] Work Phone: Comment on above: Expected: 01/09/2022, Expires: 2 Start: 10-09-2021 Urine microalbumin profile DTAP,TDAP,TD (2 - Td or Tdap) [facility] Start: 04-12-2021 COVID-19 VACCINE (3 - Booster for Pfizer series) COVID-19 VACCINE (3 - Booster for Pfizer series) [facility] Start: 01-05-2021 COVID-19 VACCINE (3 - Booster for Pfizer series) COVID-19 VACCINE (3 - Booster for Pfizer series) [facility] Start: 01-05-2021 COVID-19 VACCINE (3 - Pfizer series) COVID-19 VACCINE (3 - Pfizer series) [facility] Start: 2016 HPV TESTING HPV TESTING [facility] Start: 2016 Screening for malignant neoplasm of cervix HPV Testing [facility] Start: 01-16-2016 PAP TESTING PAP TESTING [facility] Start: 01-16-2016 Screening for malignant neoplasm of cervix [facility] Start: 2007 Screening for malignant neoplasm of cervix [facility] Start: 2005 Hepatitis A Vaccines (1 of 2 - Risk 2-dose series) Hepatitis A Vaccines (1 of 2 - Risk 2-dose series) [facility] Start: 2005 Hepatitis B Vaccine (1 of 3 - 19+ 3-dose series) Hepatitis B Vaccine (1 of 3 - 19+ 3-dose series) [facility] Start: 2005 Hepatitis B Vaccines (1 of 3 - 19+ 3-dose series) Hepatitis B Vaccines (1 of 3 - 19+ 3-dose series) [facility] Start: 2004 ANNUAL PCP TEAM CHRONIC DISEASE VISIT ANNUAL PCP TEAM CHRONIC DISEASE VISIT [facility] Start: 2004 Anxiety Screening Anxiety Screening [facility] Start: 2004 Depression Screening Depression Screening [facility] Start: 2004 HEPATITIS C SCREENING HEPATITIS C SCREENING [facility] Start: 2004 Hepatitis C screening Hepatitis C Screening [facility] Start: 1999 Varicella vaccination Varicella Vaccines (1 of 2 - 13+ 2-dose series) [facility] Start: 1998 Adult depression screening assessment DEPRESSION SCREENING [facility] Start: 1987 MMR Vaccines (1 of 1 - Standard series) MMR Vaccines (1 of 1 - Standard series) [facility] Start: 1986 HEPATITIS B (1 of 3 - 3-dose series) HEPATITIS B (1 of 3 - 3-dose series) [facility] Start: 1986 HIV screening HIV Screening [facility] Start: 1986 Lipid panel Lipid Panel [facility] Start: 1986 Yearly Adult Physical Yearly Adult Physical [facility] End: 06-03-2024 Basic metabolic 2000 panel - Serum or Plasma Basic metabolic panel Lab Routine Morning draw (Lab) for 1 Weeks starting 05/28/2024 until 06/03/2024 [facility] Work Phone: Comment on above: Morning draw (Lab) for 1 Weeks starting 05/28/2024 until 06/03/2024 ECG 12 lead ECG 12 lead ECG STAT 04/18/2024 4:53 AM EDT [facility] Work Phone: Electrocardiogram, 12-lead PRN ACS symptoms Electrocardiogram, 12-lead PRN ACS symptoms ECG Routine As needed until discontinued starting 05/25/2024 [facility] Work Phone: Comment on above: As needed until discontinued starting Electrocardiogram, 12-lead PRN ACS symptoms Electrocardiogram, 12-lead PRN ACS symptoms ECG Routine As needed until discontinued starting 04/17/2024 [facility] Service Area Work Phone: Comment on above: As needed until discontinued starting Gas panel - Arterial cord blood Blood Gas Cord Arterial Lab Timed As needed (Lab) until discontinued starting 05/25/2024 [facility] Work Phone: Comment on above: As needed (Lab) until discontinued start ing 05/25/2024 Gas panel - Arterial cord blood Blood Gas Cord Arterial Lab Timed As needed (Lab) until discontinued starting 04/17/2024 [facility] Service Area Work Phone: Comment on above: As needed (Lab) until discontinued start ing 04/17/2024 Gas panel - Venous c ord blood Blood Gas Cord Venous Lab Timed As needed (Lab) until discontinued starting 05/25/2024 [facility] Work Phone: Comment on above: As needed (Lab) until discontinued start ing 05/25/2024 Gas panel - Venous c ord blood Blood Gas Cord Venous Lab Timed As needed (Lab) until discontinued starting 04/17/2024 [facility] Work Phone: Comment on above: As needed (Lab) until discontinued start ing 04/17/2024 End: 04-20-2024 Glucose [Mass/volume] in Serum or Plasma POCT Glucose Point of Care Testing - Docked Device Routine 3 times daily before meals (Lab) for 3 Days starting 04/18/2024 until 04/20/2024, 8 completed [facility] Work Phone: Comment on above: 3 times daily before meals (Lab) for 3 D ays starting 04/18/2024 until 04/20/2024, 8 completed Hemoglobin [Mass/vol ume] in Blood Hemoglobin and hematocrit, blood Lab Routine Screening for diabetes mellitus Ordered: 03/17/2024 [employer] Comment on above: Ordered: 03/17/2024 End: 06-03-2024 Magnesium [Mass/volume] in Serum or Plasma Magnesium Lab Routine Morning draw (Lab) for 1 Weeks starting 05/28/2024 until 06/03/2024 [facility] Work Phone: Comment on above: Morning draw (Lab) for 1 Weeks starting 05/28/2024 until 06/03/2024 Measurement of gluco se 1 hour after glucose challenge for glucose tolerance test Glucose tolerance, 1 hour Lab Routine Screening for diabetes mellitus Ordered: 03/17/2024 [employer] Work Phone: Comment on above: Ordered: 03/17/2024 End: 05-25-2024 Pulse oximetry Pulse oximetry Respiratory Care Routine Per unit standards until discontinued starting 05/25/2024 [facility] Work Phone: Comment on above: Per unit standards until discontinued [facility] 05/25/2024 End: 05-25-2024 Surgical pathology study [facility] Service Rubin cheatham Work Phone: Comment on above: Once (Lab) for 1 Occurrences starting until 05/25/2024, 1 completed THINPREP TIS PAP AND HPV MRNA E6/E7 WITH REFLEX TO HPV 16,18/45 THINPREP TIS PAP AND HPV MRNA E6/E7 WITH REFLEX TO HPV 16,18/45 Pathology and Cytology Routine Screening for malignant neoplasm of cervix Encounter for screening for human papillomavirus (HPV) Ordered: 07/07/2024 [facility] Work Phone: Comment on above: Ordered: 07/07/2024 [facility] Immunizations Immunization Date Immunization Notes Care Provider Fa [facility] 05-27-2024 measles, mumps and rubella virus vaccine Tal Robles MD Work Phone: [facility] 05-25-2024 measles, mumps and rubella virus vaccine Tal Robles MD Work Phone: [facility] Work Phone: 04-20-2024 influenza virus vaccine, unspecified formulation Dyan Ernandez [facility] 04-20-2024 influenza, seasonal, injectable, preservative free Say Schmid MD Work Phone: [facility] Work Phone: 04-20-2024 tetanus toxoid, reduced diphtheria toxoid, and acellular pertussis vaccine, adsorbed Say Schmid MD Work Phone: [facility] 06-08-2023 influenza virus vaccine, unspecified formulation Linda Taylor [facility] 05-22-2022 influenza virus vaccine, unspecified formulation Linda Taylor [facility] 06-07-2021 influenza virus vaccine, unspecified formulation Linda Taylor [facility] 11-10-2020 COVID-19, mRNA, LNP-S, PF, 30 mcg/0.3 mL dose; Translations: [Pfizer-BioNTech COVID-19 Vaccine] Rose Marie Timmis [facility] Comment on above: Reason for Medicatio n: Prophylaxis 10-20-2020 COVID-19, mRNA, LNP-S, PF, 30 mcg/0.3 mL dose; Translations: [Pfizer-BioNTech COVID-19 Vaccine] Rose Marie Timmis [facility] Comment on above: Reason for Medicatio n: Prophylaxis 05-31-2020 influenza virus vaccine, unspecified formulation Rose Marie Vázquez [facility] 05-24-2020 influenza virus vaccine, unspecified formulation Linda Taylor [facility] 04-23-2018 influenza virus vaccine, unspecified formulation Linda Taylor [facility] 08-20-2016 tetanus toxoid, reduced diphtheria toxoid, and acellular pertussis vaccine, adsorbed Rose Marie Timmis [facility] Comment on above: Reason for Medicatio n: Other (see comment) 08-20-2016 influenza, seasonal, injectable Rose Marie Timmis [facility] Comment on above: Early/Late Reason: N ursing Judgment 08-24-2013 influenza virus vaccine, unspecified formulation Linda Taylor [facility] 10-10-2011 tetanus toxoid, reduced diphtheria toxoid, and acellular pertussis vaccine, adsorbed Tomeka Nyalakonda MD Work Phone: [facility] NEGATED: Highlighted row has not occurred!05-23-2022 influenza virus vaccine, unspecified formulation Emma Sharma [facility] NEGATED: Highlighted row has not occurred!11-26-2019 influenza virus vaccine, unspecified formulation Rose Marie Vázquez [facility] Payers Date Payer Category Payer Medicaid (Managed Care) [facility] [id number] 2020 Unknown [facility] [id number] 2020- [address] [place] [id number] 2019 Medicaid [id number] 2019 Private Health Insurance [facility] MEDICAID [id number] 2019 Unknown [id number] 2013 Medicaid [employer] [id number] 2013-Present [phone] [address] [place] [address] Medicaid [id number] 1986 Unknown [id number] 2.16.840.1.984090.3.579.2. 593 1986 Unknown [id number] 2.16.840.1.654285.3.579.2. 727 1986 Unknown [id number] 2.16.840.1.431214.3.579.2. 727 1986 Unknown [id number] 2.16.840.1.750818.3.579.2. 727 1986 Unknown [id number] 2.16.840.1.802909.3.579.2. 727 1986 Unknown [id number] 2.16.840.1.374663.3.579.2. 727 1986 Unknown [id number] 2.16.840.1.448436.3.579.2. 727 1986 Unknown [id number] 2.16.840.1.718387.3.579.2. 727 1986 Unknown [id number] 2.16.840.1.930787.3.579.2. 727 1986 Unknown [id number] 2.16.840.1.886550.3.579.2. 727 1986 Unknown [id number] 2.16.840.1.924045.3.579.2. 727 1986 Unknown [id number] 2.16.840.1.605542.3.579.2. 727 1986 Unknown [id number] 2.16.840.1.381862.3.579.2. 1986 Unknown [id number] 2.16.840.1.478091.3.579.2 1986 Unknown [id number] 2.16.840.1.580657.3.579.2 1986 Unknown [id number] 2.16.840.1.130320.3.579.2 1986 Unknown [id number] 2.16.840.1.282729.3.579.2 1986 Unknown [id number] 2.16.840.1.444599.3.579.2 1986 Unknown [id number] 2.16.840.1.000443.3.579.2 1986 Unknown [id number] 2.16.840.1.852597.3.579.2 1986 Unknown [id number] 2.16.840.1.166862.3.579.2 1986 Unknown [id number] 2.16.840.1.123002.3.579.2 1986 Unknown [id number] 2.16.840.1.943284.3.579.2 1986 Unknown [id number] 2.16.840.1.766453.3.579.2 1986 Unknown [id number] 2.16.840.1.161612.3.579.2 1986 Unknown [id number] 2.16.840.1.579549.3.579.2 1986 Unknown [id number] 2.16.840.1.367643.3.579.2 1986 Unknown [id number] 2.16.840.1.365107.3.579.2 1986 Unknown [id number] 2.16.840.1.664348.3.579.2. 1986 Unknown [id number] 2.16.840.1.357139.3.579.2 1986 Unknown [id number] 2.16.840.1.759608.3.579.2 1986 Unknown [id number] 2.16.840.1.002531.3.579.2 1986 Unknown [id number] 2.16.840.1.148347.3.579.2. 1986 Unknown [id number] 2.16.840.1.710150.3.579.2 1986 Unknown [id number] 2.16.840.1.959873.3.579.2 1986 Unknown [id number] 2.16.840.1.284510.3.579.2 1986 Unknown [id number] 2.16.840.1.924706.3.579.2 1986 Unknown [id number] 2.16.840.1.858183.3.579.2 1986 Unknown [id number] 2.16.840.1.932399.3.579.2 1986 Unknown [id number] 2.16.840.1.969717.3.579.2 1986 Unknown [id number] 2.16.840.1.306811.3.579.2 1986 Unknown [id number] 2.16.840.1.895696.3.579.2 1986 Unknown [id number] 2.16.840.1.230781.3.579.2 1986 Unknown [id number] 2.16.840.1.120447.3.579.2 1986 Unknown [id number] 2.16.840.1.086935.3.579.2. 727 1986 Unknown [id number] 2.16.840.1.646887.3.579.2. 727 1986 Unknown [id number] 2.16.840.1.843909.3.579.2. 727 1986 Unknown [id number] 2.16.840.1.183062.3.579.2. 72 1986 Unknown [id number] 2.16.840.1.049100.3.579.2. 124 1986 Unknown [id number] 2.16.840.1.525692.3.579.2. 1244 1986 Unknown [id number] 2.16.840.1.884189.3.579.2. 1244 1986 Unknown [id number] 2.16840.1.527385.3.579.2. 1244 1986 Unknown [id number] 2.16.840.1.179241.3.579.2. 1243 1986 Unknown [id number] 2.16840.1.623002.3.579.2. 1243 1986 Unknown [id number] 2.16.840.1.320675.3.579.2. 1258 1986 Unknown [id number] 2.16840.1.512300.3.579.2. 1258 1986 Unknown [id number] 2.16.840.1.668695.3.579.2. 1258 1986 Unknown [id number] 2.16.840.1.359110.3.579.2. 1258 1986 Unknown [id number] 2.16.840.1.739006.3.579.2. 1258 1986 Unknown [id number] 2.16.840.1.220106.3.579.2. 1258 1986 Unknown [id number] 2.16.840.1.730750.3.579.2. 1258 1986 Unknown [id number] 2.16.840.1.656291.3.579.2. 1258 1986 Unknown [id number] 2.16.840.1.120026.3.579.2. 1258 1986 Unknown [id number] 2.16.840.1.496389.3.579.2. 1258 1986 Unknown [id number] 2.16.840.1.505704.3.579.2. 1258 1986 Unknown [id number] 2.16.840.1.589162.3.579.2. 1258 1986 Unknown [id number] 2.16.840.1.782719.3.579.2. 1258 1986 Unknown [id number] 2.16.840.1.415430.3.579.2. 1258 1986 Unknown [id number] 2.16.840.1.299792.3.579.2. 1258 1986 Unknown [id number] 2.16.840.1.158440.3.579.2. 1258 1986 Unknown [id number] 2.16.840.1.828607.3.579.2. 1258 1986 Unknown [id number] 2.16.840.1.355345.3.579.2. 1258 1986 Unknown [id number] 2.16.840.1.313055.3.579.2. 1258 1986 Unknown [id number] 2.16.840.1.800305.3.579.2. 1986 Unknown [id number] 2.16.840.1.833959.3.579.2. 1986 Unknown [id number] 2.16.840.1.568675.3.579.2. 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 No [facility] Are you now , , , , never or living with a partner? [facility] How often to you hav e a drink containing alcohol? Never [facility] Do you feel stress - tense, restless, nervous, or anxious, or unable to sleep at night because your mind is troubled all the time - these days [OSQ] Only a little [facility] (I/We) worried wheth er (my/our) food would run out before (I/we) got money to buy more. Never true [facility] Start: 10-10-2023 Education 13 [facility] Start: 10-13-2023 Tobacco Comment Denies alcohol use, substance abuse , tobacco use [facility] Start: 10-13-2023 Alcohol Comment caffeine intak e : 1-2 cups per day [facility] Start: 09-28-2023 [facility] How hard is it for y ou to pay for the very basics like food, housing, medical care, and heating Not very hard [facility] Start: 04-08-2024 End: 06-30-2024 Exposure to SARS-CoV-2 (event) Not sure [facility] Start: 06-03-2024 Sex Female (finding) [facility] Start: 1985 Sex Assigned At Female [facility] Start: 04-18-2024 Alcoholic beverage intake Ex-drinker (finding) [facility] Work Phone: Functional Status Date Assessment Result Facility 06-28-2024 Functional Status N/A [facility] 06-19-2024 Functional Status N/A [facility] 05-30-2024 Functional Status N/A [facility] 05-24-2024 Functional Status N/A [facility] 04-17-2024 Functional Status N/A [facility] 04-01-2024 Functional Status N/A [facility] 01-01-2024 Functional Status N/A [facility] 10-29-2023 Functional Status N/A [facility] 08-08-2023 Functional Status N/A [facility] 05-29-2023 Functional Status N/A [facility] 09-14-2022 Functional Status N/A [facility] 01-11-2022 Functional Status Telehealth Patient Dev[facility] Clinical Notes 09-23-2012 to 08-31-2024 Merlyn Castaneda MA - 08/31/2024 9:30 AM ESTTodd TAISHA Robertson - 08/31/2024 9:30 AM ESTPatient Christopher Soria NP - 08/06/2024 1:20 PM Analia Castaneda MA - 07/29/2024 1:15 PM EST Note Date & Type Note Facility 08-31-2024 History of Presen t illness Narrative Associated Order(s): M Inj/Asp: bilateral radiocarpal Post-Procedure Diagnose(s): De Quervain's tenosynovitis, left; De Quervain's tenosynovitis, right M Inj/Asp: bilateral radiocarpal on 08/31/2024 9:47 AM Indications: pain Details: 25 G needle, ultrasound-guided anterolateral approach Medications (Right): 6 mg betamethasone acetate-betamethasone sodium phosphate 6 (3-3) MG/ML Medications (Left): 6 mg betamethasone acetate-betamethasone sodium phosphate 6 (3-3) MG/ML Procedure, treatment alternatives, risks and benefits explained, specific risks discussed. Consent was given by the patient. Immediately prior to procedure a time out was called to verify the correct patient, procedure, equipment, clinical support tech and site/side marked as required. Patient was prepped and draped in the usual sterile fashion. Images from the original note were not included. Subjective Patient ID: Ilda Viera is a 39 y.o. female. Chief Complaint: Pain of the Left Wrist and Pain of the Right Wrist Last Surgery: No surgery found Last Surgery Date: No surgery found ROD Carter comes in today she is still having a lot of pain in the left greater than right but still having some discomfort in the right so we have x-rayed that today she would like to consider repeat left and added right de Quervain injection. She is using her nighttime splints helping to avoid use of the extensor mechanism of the thumb for a period of time. She is also using cold pack to the area several times a day. Objective Ortho Exam Positive Marjorie test bilaterally associated with some discomfort in the distal carpal row dorsally extending into the base of the 2nd MC with no evidence of erythema or significant swelling or ecchymosis. Negative Tinel's bilaterally negative grind test she does have some tenderness of the distal carpal row on the left. Image Results: XR wrist 3+ views left Imaging Result: AP lateral and oblique of the left wrist taken in the office previously and reviewed today does demonstrate some cystic changes to the lunate with no evidence of widening of the conjoining carpal bones. No evidence of fracture or dislocation seen Imaging Result: AP lateral and oblique of the right wrist demonstrates some findings of calcific tendinitis to the extensor mechanism over the radial aspect of the basilar thumb consistent with de Quervain tenosynovitis no evidence of arthritis to the proximal or distal carpal rows no evidence of fracture bony tumor seen. Assessment/Plan Encounter Diagnoses: Right wrist pain De Quervain's tenosynovitis, left De Quervain's tenosynovitis, right Orders Placed This Encounter XR wrist 3+ views right Follow up if symptoms worsen or fail to improve. Use thumb spica splints at nighttime to help give the extensor tendon chance to rest and use during the daytime as optional. Anticipate cortisone for both wrists de Quervain to start helping after48 hours up to 1 week. May repeat cortisone in 4 weeks which we will schedule a recheck appointment to the right wrist and would have the option of injecting the left 1 more time versus seeking surgical consult. Cold pack 20 minutes to the area soreness several times a day before bed as well as use of anti-inflammatory medicine taking with food to avoid GI upset long as you are not . Tylenol for breakthrough discomfort. We will set up OT through [facility] 3 times a week for 4 weeks and follow up in 5. documented in this encounter [facility] 08-31-2024 Instructions TAISHA Bhakta - 08/31/2024 9:30 AM EST Use thumb spica splints at nighttime to help give the extensor tendon chance to rest and use during the daytime as optional. Anticipate cortisone for both wrists de Quervain to start helping after48 hours up to 1 week. May repeat cortisone in 4 weeks which we will schedule a recheck appointment to the right wrist and would have the option of injecting the left 1 more time versus seeking surgical consult. Cold pack 20 minutes to the area soreness several times a day before bed as well as use of anti-inflammatory medicine taking with food to avoid GI upset long as you are not . Tylenol for breakthrough discomfort. We will set up OT through [facility] 3 times a week for 4 weeks and follow up in 5. documented in this encounter [facility] 08-06-2024 History of Presen t illness Narrative Associated Order(s): IUD Insertion Post-Procedure Diagnose(s): Encounter for IUD insertion Images from the original note were not included. Patient ID: Ilda Viera is a 39 y.o. female here for liletta IUD insertion. She is currently taking OCPs and on her menses. IUD Insertion Performed by: Josselyn Soria NP Authorized by: Josselyn Soria NP Procedure: IUD insertion Consent obtained by patient, parent, or legal power of estate attorney - including discussion of procedure risks and benefits, patient questions answered, and patient education provided: yes risk: reasonably certain the patient is not Date/Time of Insertion: 08/06/2024 1:31 PM Immediately prior to procedure a time out was called: yes Pelvic exam performed: yes Cervix cleaned and prepped: yes Tenaculum/Allis/Ring Forceps applied to cervix: yes (Allis.) Uterus sound depth (cm): 8 IUD inserted without complications: yes OSM: 52 mL Levonorgestrel 20.1 MCG/DAY Strings trimmed to (cm): 3 Patient tolerated procedure well: yes Estimated blood loss (mL): 0 Intended removal date: 8 years documented in this encounter [facility] 07-29-2024 History of Presen t illness Narrative Associated Order(s): M Inj/Asp: L radiocarpal Post-Procedure Diagnose(s): Left wrist pain; Tendinitis, de Quervain's M Inj/Asp: L radiocarpal on 07/29/2024 1:48 PM Indications: pain Details: 25 G needle, ultrasound-guided Medications: 3 mg betamethasone acetate-betamethasone sodium phosphate 6 (3-3) MG/ML Procedure, treatment alternatives, risks and benefits explained, specific risks discussed. Consent was given by the patient. Immediately prior to procedure a time out was called to verify the correct patient, procedure, equipment, clinical support tech and site/side marked as required. Patient was prepped and draped in the usual sterile fashion. GENERAL HISTORY AND PHYSICAL: NAME: Ilda Viera : 1985 HISTORY OF PRESENT ILLNESS: Ilda Viera is an 39 y.o. female is here for orthopedic evaluation left initially and greater than the right but development of de Quervain. She states she feels this was related to grasping the rails on the bed while delivering her 6th child. She has tried thumb spica splint on the left and has not had any significant relief and would like to try other treatment options including cortisone injection today. She is not diabetic. PAST MEDICAL HISTORY: Past Medical History: Diagnosis Date Abnormal Pap smear of cervix 2006 Alopecia areata Amenorrhea Anemia Bipolar disorder ([facility]) manic, mild Chronic sinusitis Disease of thyroid gland ([facility]) 2018 Endogenous hyperlipemia ([facility]) Fatigue Female infertility 2021 High serum testosterone Hyperinsulinemia Hypertension ([facility]) 05/2024 Hypothyroidism ([facility]) 2018 Morbid obesity with BMI of 40.0-44.9, adult ([facility]) Nasal polyp Nonsmoker PCOS (polycystic ovarian syndrome) Polycystic ovary syndrome 2018 Positive urine drug screen Benzoid Varicella Vitamin D deficiency PAST SURGICAL HISTORY: Past Surgical History: Procedure Laterality Date CHOLECYSTECTOMY 2008 DENTAL SURGERY 02/28/2017 OTHER SURGICAL HISTORY 12/07/2021 BMMA, anterior ethmoidectomy, Timmis SOCIAL HISTORY: Social History Occupational History 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 Tobacco Use Smoking status: Never Smokeless tobacco: Never Tobacco comments: Denies alcohol use, substance abuse , tobacco use Vaping Use Vaping status: Never Used Substance and Sexual Activity Alcohol use: Never Comment: caffeine intake : 1-2 cups per day Drug use: Never Sexual activity: Yes Partners: Male control/protection: OCP ALLERGIES: Allergies Allergen Reactions Nalbuphine Hallucinations and Swelling Other Reaction(s): hallucin, Other (See Comments), Other: See Comments, Unknown hallucinations Hallucinations MEDICATIONS: Current Outpatient Medications Medication Instructions acetaminophen (Tylenol) 325 MG tablet TAKE 3 TABLETS BY MOUTH EVERY 6 HOURS. Adderall XR 10 MG 24 hr capsule Every 24 hours albuterol HFA 90 mcg/act inhaler INHALE 2 PUFFS INTO THE LUNGS EVERY 4 HOURS amLODIPine-valsartan (Exforge) 5-160 MG tablet 1 tablet, Daily beCHFBVvwl-Igukznnop-HSBL 5-160-12.5 MG tablet Every 24 hours ferrous sulfate 325 mg, Oral, 2 times daily, Do not crush, chew, or split. fluticasone (Flonase) 50 MCG/ACT nasal spray SPRAY 1 SPRAY INTO EACH NOSTRIL EVERY DAY labetalol (NORMODYNE) 200 mg, 2 times daily lamoTRIgine (LaMICtal) 150 MG tablet Every 24 hours Levoxyl 137 mcg, Daily lurasidone (Latuda) 40 MG tablet TAKE 1 TABLET BY MOUTH EVERY DAY IN THE EVENING WITH FOOD metFORMIN (Glucophage) 1000 MG tablet Every 12 hours norgestimate-ethinyl estradiol (Sprintec 28) 0.25-35 MG-MCG tablet 1 tablet, Oral, Daily omeprazole (PRILOSEC) 20 mg, Oral, Daily Vit-Fe Fumarate-FA ( Plus Vitamin/Mineral) 27-1 MG tablet 1 tablet, Oral, Daily REVIEW OF SYSTEMS: Review of Systems General: Denies appetite or significant weight change. Denies fever, chills or night sweats. Denies lightheadedness. ENT: Denies dry mouth, sore throat or swollen glands. Denies difficulty swallowing. Denies ear pain. Respiratory: Denies chest pain, SOB, cough or wheezing. Denies asthma or pneumonia symptoms. Cardiovascular: Denies CP or palpitations. No syncope or dyspnea on exertion. Gastrointestinal: Denies nausea or vomiting. Denies heartburn or abdominal pain. Denies diarrhea. Genitourinary: Denies frequent or painful urination. Musculoskeletal: See HPI for comments. Integumentary: Denies rash, lesion or skin infection. Neurologic: Denies dizziness, headache or seizure history. Vitals: Body mass index is 38.26 kg/m . PHYSICAL EXAM: Physical Exam Patient has positive Marjorie bilaterally with the left being much more severe she has negative grind test no evidence of triggering of the thumb she has normal sensation to the tips of the fingers negative Tinel's or Phalen's at the wrist. XR wrist 3+ views left Imaging Result: AP lateral and oblique of the left wrist taken in the office today does demonstrate some cystic changes to the lunate with no evidence of widening of the conjoining carpal bones. No evidence of fracture or dislocation seen Orders Placed This Encounter Procedures M Inj/Asp: L radiocarpal This order was created via procedure documentation XR wrist 3+ views left Order Specific Question: Is the patient ? Answer: No Order Specific Question: Reason for exam: Answer: pain XR wrist 3+ views left Imaging Result: AP lateral and oblique of the left wrist taken in the office today does demonstrate some cystic changes to the lunate with no evidence of widening of the conjoining carpal bones. No evidence of fracture or dislocation seen ASSESSMENT: Tendinitis, de Quervain's Left wrist pain PLAN: Use thumb spica splints at nighttime to help give the extensor tendon chance to rest and use during the daytime as optional. Anticipate cortisone in the left de Quervain to start helping after48 hours up to 1 week. May repeat cortisone in 4 weeks which we will schedule a recheck appointment and x-ray of the right wrist if still having discomfort. Cold pack 20 minutes to the area soreness several times a day before bed as well as use of anti-inflammatory medicine taking with food to avoid GI upset long as you are not . Tylenol for breakthrough discomfort. May consider OT in the future if not improving with this treatment option. TAISHA Bhakta documented in this encounter [facility] 07-29-2024 Instructions TAISHA Bhakta - 07/29/2024 1:15 PM EST Use thumb spica splints at nighttime to help give the extensor tendon chance to rest and use during the daytime as optional. Anticipate cortisone in the left de Quervain to start helping after48 hours up to 1 week. May repeat cortisone in 4 weeks which we will schedule a recheck appointment and x-ray of the right wrist if still having discomfort. Cold pack 20 minutes to the area soreness several times a day before bed as well as use of anti-inflammatory medicine taking with food to avoid GI upset long as you are not . Tylenol for breakthrough discomfort. May consider OT in the future if not improving with this treatment option. documented in this encounter [facility] 07-07-2024 History of Presen t illness Narrative Images from the original note were not included. Subjective Ilda Viera is a 39 y.o. female Chief Complaint Patient presents with Follow-up Patient here for 6 week . She delivered on 05/25/24 at [facility] at 36 weeks 2 days,Vaginally; to a male that weighted 6#4oz. She is bottle feeding-nutramigen. Denies intercourse since delivery. Periods not returned. Pt interested in BC. Pt c/o pp depression. Pt has appt at with her psychiatrist tomorrow to discuss her symptoms and bipolar disease. Denies any other problems. Would like Progesterone IUD and OCP in the meantime Past Medical History: Diagnosis Date Abnormal Pap smear of cervix 2006 Alopecia areata Amenorrhea Anemia Bipolar disorder (CMS/HCC) manic, mild Chronic sinusitis Disease of thyroid gland (CMS/HCC) 2017 Endogenous hyperlipemia (CMS/HCC) Fatigue Female infertility 2021 High serum testosterone Hyperinsulinemia Hypothyroidism (CMS/HCC) 2018 Morbid obesity with BMI of 40.0-44.9, adult (CMS/HCC) Nasal polyp Nonsmoker PCOS (polycystic ovarian syndrome) Polycystic ovary syndrome 2018 Positive urine drug screen Benzoid Varicella Vitamin D deficiency Past Surgical History: Procedure Laterality Date CHOLECYSTECTOMY 2007 DENTAL SURGERY 02/28/2017 OTHER SURGICAL HISTORY 12/07/2021 BMMA, anterior ethmoidectomy, Timmis Family History Problem Relation Name Age of Onset Osteoarthritis Mother Amy Anna Thyroid disease Mother Amy Anna Hypertension Father Fransico anna Hyperlipidemia Father Fransico anna Heart disease Father Fransico anna OB History as of 07/02/2024 9 Para 7 Term 6 1 AB 2 Living 7 SAB 2 IAB 0 Ectopic 0 Multiple Live Births 7 OB History Para Term AB Living 9 7 6 1 2 7 SAB IAB Ectopic Multiple Live Births 2 0 0 7 # Outcome Date GA Lbr Kvng/2nd Weight Sex Type Anes PTL Lv 9 05/25/24 36w2d 17:13 / 00:38 6 lb 4.2 oz M Vag-Spont EPI IZABEL 8 Term 03/05/18 39w0d 6 lb 4 oz M Vag-Spont EPI N IZABEL 7 Term 08/20/16 39w0d 7 lb 5 oz M Vag-Spont EPI N IZABEL Comments: blood clot behind placenta 6 Term 01/14/13 39w0d 03:59 / 00:04 6 lb 10 oz M Vag-Spont None N IZABEL 5 Term 10/09/11 39w0d 04:37 7 lb 1.7 oz F Vag-Spont EPI N IZABEL Comments: partial abruption at 13 weeks, bedrest for 10 weeks 4 2011 8w0d FD Comments: no D&C needed 3 2008 10w0d FD Comments: no D&C needed 2 Term 04/06/07 38w0d 5 lb 15 oz M Vag-Spont EPI N IZABEL 1 Term 02/07/05 39w0d 6 lb 7 oz F Vag-Spont EPI N IZABEL Comments: hyperemesis Ht 5' 2 Wt 221 lb 6.4 oz LMP 08/10/2023 Comment: pt states she has not had a period since delivery No BMI 40.49 kg/m Review of Systems Constitutional: Negative. Respiratory: Negative. Cardiovascular: Negative. Gastrointestinal: Negative. Musculoskeletal: Negative. Skin: Negative. Neurological: Negative. Endocrine: Negative. Objective Physical Exam Genitourinary: Urethral meatus normal. No lesions in the vagina. Right Labia: No lesions. Left Labia: No lesions. No vaginal discharge. Right Adnexa: not tender and no mass present. Left Adnexa: not tender and no mass present. No cervical lesion. Uterus is not tender. Uterus is anteverted. Bladder is not tender. Breasts: Right: No mass, nipple discharge, skin change or tenderness. Left: No mass, nipple discharge, skin change or tenderness. HENT: Head: Normocephalic and atraumatic. Mouth/Throat: Mouth: Mucous membranes are moist. Cardiovascular: Rate and Rhythm: Normal rate and regular rhythm. Pulmonary: Effort: Pulmonary effort is normal. Breath sounds: Normal breath sounds. Abdominal: General: Bowel sounds are normal. Palpations: Abdomen is soft. Musculoskeletal: General: No tenderness. Cervical back: Neck supple. Neurological: Mental Status: She is alert and oriented to person, place, and time. Skin: General: Skin is warm and dry. Psychiatric: Mood and Affect: Mood normal. Vitals and nursing note reviewed. 1. examination following vaginal delivery (Primary) Patient may return to normal physical activities. Contraceptive options discussed 2. Screening for malignant neoplasm of cervix Cervical cytology and co-testing performed. Patient to contact the office for results - THINPREP TIS PAP AND HPV MRNA E6/E7 WITH REFLEX TO HPV 16,18/45 3. Encounter for screening for human papillomavirus (HPV) - THINPREP TIS PAP AND HPV MRNA E6/E7 WITH REFLEX TO HPV 16,18/45 4. Family planning counseling Will send PA for Progesterone IUD and in the meantime patient to start combination OCP. Instructed patient to use back up contraception in the first month 5. Oral contraception initiation Sprintec OCP Rx sent to pharmacy - norgestimate-ethinyl estradiol (Sprintec 28) 0.25-35 MG-MCG tablet; Take 1 tablet by mouth Daily Dispense: 28 tablet; Refill: 5 6. Current moderate episode of major depressive disorder, unspecified whether recurrent (HCC) (CMS/HCC) Management as per her Primary therapist/mental health provider documented in this encounter [facility] 06-30-2024 Evaluation + Plan note Associated Problem(s): Chronic hypertension - Bps 130s / 80s at home, taking it 1 time per week per cardiology recs - BP 110/71 today - Meds: labetalol 200mg bid, amlodipine/valsartan combo - Recommend continuing the above regimen. Discussed precautions for hypotension [facility] Work Phone: 06-30-2024 Miscellaneous Notes Associated Problem(s): Chronic hypertension - Bps 130s / 80s at home, taking it 1 time per week per cardiology recs - BP 110/71 today - Meds: labetalol 200mg bid, amlodipine/valsartan combo - Recommend continuing the above regimen. Discussed precautions for hypotension Associated Problem(s): PCOS (polycystic ovarian syndrome) - Metformin 1000mg continued in . Will continue - No GDM in , but recommend q1-3 yr screening for DM Associated Problem(s): Bipolar disorder - Current meds: lamictal 300mg daily - Patient has symptoms of depressed mood and frequent anxiety / intrusive thoughts, concerning for anxiety or depression. She has an established therapist and has an appt with a psychiatrist next week to discuss medication adjustments. 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 No concerns. She reports symptoms of depression (see below). No SI/HI. She is able to complete ADL and care for her without problem - Reviewed our recommendation for healthy spacing of pregnancies - Desires interval LNG-IUD. She has a home security professional who she is planning to make an appt with to place this. Will need a pap smear at this visit, discussed with patient - Placenta pathology discussed with the patient. It revealed adherent myometrial fibers consistent with Stage 2. Discussed in her clinical setting (uncomplicated and placental delivery), this is likely an incidental finding and not concerning for PAS. Associated Problem(s): SVT (supraventricular tachycardia) (CMS-HCC) - 04/17-04/20 admission for maternal SVT, with spontaneous conversion to NSR, with elevated troponin. Per Cardiology, patient was in AVNRT. She was on Metoprolol, which was switched to labetalol by cardiology - ECHO with normal EF. No structural abnormalities - At 36w1d, she went into persistent SVT again requiring adenosine x2, and underwent IOL - Since delivery, she reports 3 episodes lasting ~10 seconds of SVT, which resolved spontaneously - No chest pain or dyspnea - She followed up with cardiology on 06/16: discussed option for ablation. She desires med management for now - Patient is considering another . Reviewed she could have recurrent SVT in a subsequent , and to consider an ablation procedure prior documented in this encounter [facility] Work Phone: 06-30-2024 Evaluation + Plan note Associated Problem(s): PCOS (polycystic ovarian syndrome) - Metformin 1000mg continued in . Will continue - No GDM in , but recommend q1-3 yr screening for DM [facility] Work Phone: 06-30-2024 Evaluation + Plan note Associated Problem(s): Bipolar disorder - Current meds: lamictal 300mg daily - Patient has symptoms of depressed mood and frequent anxiety / intrusive thoughts, concerning for anxiety or depression. She has an established therapist and has an appt with a psychiatrist next week to discuss medication adjustments. She is at the max dose for lamictal, so will defer to psych for further medication management [facility] Work Phone: 06-30-2024 Evaluation + Plan note Associated Problem(s): Hypothyroidism - Managed by her electric shovel operator throughout - Her synthroid was adjusted to 137mcg daily - Recommended labs, which she is getting with her endo [facility] Work Phone: 06-30-2024 Evaluation + Plan note Associated Problem(s): Encounter for visit - Physical recovery is excellent. No concerns. She reports symptoms of depression (see below). No SI/HI. She is able to complete ADL and care for her without problem - Reviewed our recommendation for healthy spacing of pregnancies - Desires interval LNG-IUD. She has a home security professional who she is planning to make an appt with to place this. Will need a pap smear at this visit, discussed with patient - Placenta pathology discussed with the patient. It revealed adherent myometrial fibers consistent with Stage 2. Discussed in her clinical setting (uncomplicated and placental delivery), this is likely an incidental finding and not concerning for PAS. [facility] Work Phone: 06-30-2024 Evaluation + Plan note Associated Problem(s): SVT (supraventricular tachycardia) ([facility]) - 04/17-04/20 admission for maternal SVT, with spontaneous conversion to NSR, with elevated troponin. Per Cardiology, patient was in AVNRT. She was on Metoprolol, which was switched to labetalol by cardiology - ECHO with normal EF. No structural abnormalities - At 36w1d, she went into persistent SVT again requiring adenosine x2, and underwent IOL - Since delivery, she reports 3 episodes lasting ~10 seconds of SVT, which resolved spontaneously - No chest pain or dyspnea - She followed up with cardiology on 06/16: discussed option for ablation. She desires med management for now - Patient is considering another . Reviewed she could have recurrent SVT in a subsequent , and to consider an ablation procedure prior [facility] Work Phone: 06-30-2024 History of Presen t illness Narrative M Follow-up 06/30/2024 SUBJECTIVE HPI: Ilda Viera is a 39 y.o. s/p at 36w2d on 05/25. was complicated by SVT, and at 36w1d she required adenosine x2 at an OSH for persistent SVT. She is doing okay . She reports she presented to an ED for flank pain, and was diagnosed with pyelonephritis, for which she is on antibiotics for. This has improved her pain and she has no urinary symptoms, fevers/chills or flank pain. She denies any pelvic/vaginal pain or abnormal bleeding. She is currently formula feeding. She reports sleep is okay. She states I think I have depression , and reports feeling very anxious and depressed mood. No SI/HI. She is able to complete her daily activities of daily living and care for her baby/children. She has a follow up appt with her psychiatrist next week to change her medications. OBJECTIVE Visit Vitals BP 110/71 (BP Location: Right arm, Patient Position: Sitting, BP Cuff Size: Adult) Pulse 69 Ht 1.575 m (5' 2 ) Wt 101 kg (222 lb) LMP 08/10/2023 No BMI 40.60 kg/m OB Status Recent Smoking Status Never BSA 2.1 m ASSESSMENT & PLAN Ilda Viera is a 39 y.o. s/p at 36w2d on 05/25. was complicated by SVT, and at 36w1d she required adenosine x2 at an OSH for persistent SVT. The following concerns we addressed today: SVT (supraventricular tachycardia) ([facility]) - 04/17-04/20 admission for maternal SVT, with spontaneous conversion to NSR, with elevated troponin. Per Cardiology, patient was in AVNRT. She was on Metoprolol, which was switched to labetalol by cardiology - ECHO with normal EF. No structural abnormalities - At 36w1d, she went into persistent SVT again requiring adenosine x2, and underwent IOL - Since delivery, she reports 3 episodes lasting ~10 seconds of SVT, which resolved spontaneously - No chest pain or dyspnea - She followed up with cardiology on 06/16: discussed option for ablation. She desires med management for now - Patient is considering another . Reviewed she could have recurrent SVT in a subsequent , and to consider an ablation procedure prior Encounter for visit - Physical recovery is excellent. No concerns. She reports symptoms of depression (see below). No SI/HI. She is able to complete ADL and care for her without problem - Reviewed our recommendation for healthy spacing of pregnancies - Desires interval LNG-IUD. She has a home security professional who she is planning to make an appt with to place this. Will need a pap smear at this visit, discussed with patient - Placenta pathology discussed with the patient. It revealed adherent myometrial fibers consistent with Stage 2. Discussed in her clinical setting (uncomplicated and placental delivery), this is likely an incidental finding and not concerning for PAS. Hypothyroidism - Managed by her electric shovel operator throughout - Her synthroid was adjusted to 137mcg daily - Recommended labs, which she is getting with her endo Bipolar disorder - Current meds: lamictal 300mg daily - Patient has symptoms of depressed mood and frequent anxiety / intrusive thoughts, concerning for anxiety or depression. She has an established therapist and has an appt with a psychiatrist next week to discuss medication adjustments. She is at the max dose for lamictal, so will defer to psych for further medication management PCOS (polycystic ovarian syndrome) - Metformin 1000mg continued in . Will continue - No GDM in , but recommend q1-3 yr screening for DM Chronic hypertension - Bps 130s / 80s at home, taking it 1 time per week per cardiology recs - BP 110/71 today - Meds: labetalol 200mg bid, amlodipine/valsartan combo - Recommend continuing the above regimen. Discussed precautions for hypotension No orders of the defined types were placed in this encounter. Discussed she can return to clinic for a pre-conception visit or in a new . Patient seen and evaluated with Dr. Lance Sandy MD Fellow, Maternal- Medicine Cosigned by Fermin Lucas MD at 07/03/2024 5:05 PM EST Associated attestation - Fermin Lucas MD - 07/03/2024 5:05 PM EST I saw and evaluated the patient. I personally obtained the eaton and critical portions of the history and physical exam or was physically present for eaton and critical portions performed by the resident/fellow. I reviewed the resident/fellow's documentation and discussed the patient with the resident/fellow. I agree with the resident/fellow's medical decision making as documented in the note with the exception/addition of the following: Endorses safety and reviewed psychological precautions, has provider with follow up scheduled. Reports achieving ADLs. documented in this encounter [facility] Work Phone: 06-28-2024 Hospital Discharg e instructions Patient Education 06/28/2024 13:40:26 Urinary Tract Infection, Adult, Vlke-zo-Bjqh Urinary Tract Infection, Adult A urinary tract infection (UTI) is an infection of any part of the urinary tract. The urinary tract includes: The kidneys. The ureters. The bladder. The urethra. These organs make, store, and get rid of pee (urine) in the body. What are the causes? This infection is caused by germs (bacteria) in your genital area. These germs grow and cause swelling (inflammation) of your urinary tract. What increases the risk? The following factors may make you more likely to develop this condition: Using a small, thin tube (catheter) to drain pee. Not being able to control when you pee or poop (incontinence). Being female. If you are female, these things can increase the risk: ?Using these methods to prevent : ?A medicine that kills sperm (spermicide). ?A device that blocks sperm (diaphragm). ?Having low levels of a female hormone (estrogen). ?Being . You are more likely to develop this condition if: You have genes that add to your risk. You are sexually active. You take antibiotic medicines. You have trouble peeing because of: ?A prostate that is bigger than normal, if you are male. ?A blockage in the part of your body that drains pee from the bladder. ?A kidney stone. ?A nerve condition that affects your bladder. ?Not getting enough to drink. ?Not peeing often enough. You have other conditions, such as: ?Diabetes. ?A weak disease-fighting system (immune system). ?Sickle cell disease. ?Gout. ?Injury of the spine. What are the signs or symptoms? Symptoms of this condition include: Needing to pee right away. Peeing small amounts often. Pain or burning when peeing. Blood in the pee. Pee that smells bad or not like normal. Trouble peeing. Pee that is cloudy. Fluid coming from the vagina, if you are female. Pain in the belly or lower back. Other symptoms include: Vomiting. Not feeling hungry. Feeling mixed up (confused). This may be the first symptom in older adults. Being tired and grouchy (irritable). A fever. Watery poop (diarrhea). How is this treated? Taking antibiotic medicine. Taking other medicines. Drinking enough water. In some cases, you may need to see a specialist. Follow these instructions at home: Medicines Take xmyb-ckj-vgrphus and prescription medicines only as told by your doctor. If you were prescribed an antibiotic medicine, take it as told by your doctor. Do not stop taking it even if you start to feel better. General instructions Make sure you: ?Pee until your bladder is empty. ?Do not hold pee for a long time. ?Empty your bladder after sex. ?Wipe from front to back after peeing or pooping if you are a female. Use each tissue one time when you wipe. Drink enough fluid to keep your pee pale yellow. Keep all follow-up visits. Contact a doctor if: You do not get better after 1 2 days. Your symptoms go away and then come back. Get help right away if: You have very bad back pain. You have very bad pain in your lower belly. You have a fever. You have chills. You feeling like you will vomit or you vomit. Summary A urinary tract infection (UTI) is an infection of any part of the urinary tract. This condition is caused by germs in your genital area. There are many risk factors for a UTI. Treatment includes antibiotic medicines. Drink enough fluid to keep your pee pale yellow. This information is not intended to replace advice given to you by your health care provider. Make sure you discuss any questions you have with your health care provider. Document Revised: 02/12/2021 Document Reviewed: 02/17/2021 Smart Surgical Patient Education 2023 [employer]. Follow Up Care 06/28/2024 10:59:00 With:Bigg VILLANUEVA Address: [address] [place] [address] [place] [address]- Business (1) When:07/01/2024 13:27:48 Comments:Call Dr for diagnosis based follow up With:Linda Taylor Address: [address] [facility] [address] [address]- Business (1) When:07/01/2024 13:27:42 Comments:Call Dr for diagnosis based follow up [facility] 06-28-2024 Evaluation + Plan note Extrac iglesia from: Title:ED Note Author:Fabricio Carter PA-C te:06/28/24 UTI (urinary tract infection ) (N39.0: Urinary tract infection, site not specified) Orders: cephalexin, 500 mg = 1 cap(s), Oral, q6hr, X 7 day(s), # 28 cap(s), Refills(s) 0, Pharmacy: [facility]/pharmacy #[id number], 157, cm, 06/28/24 11:04:00 EST, Height/Length Dosing, 99.5, kg, 06/28/24 11:04:00 EST, Weight Dosing ketorolac, 60 mg = 2 mL, Injection, IntraMuscular, Once, Stop date 06/28/24 12:12:00 EST, STAT, Start date 06/28/24 12:12:00 EST, 06/28/24 12:12:00 EST naproxen, 500 mg = 1 tab(s), Oral, BID, PRN for pain, # 20 tab(s), Refills(s) 0, Pharmacy: [facility]/pharmacy #[id number], 157, cm, 06/28/24 11:04:00 EST, Height/Length Dosing, 99.5, kg, 06/28/24 11:04:00 EST, Weight Dosing ondansetron, 4 mg = 1 tab(s), Tab-Dis, Oral, Once, Stop date 06/28/24 12:13:00 EST, STAT, Start date 06/28/24 12:13:00 EST, 06/28/24 12:13:00 EST ondansetron, 4 mg = 1 tab(s), Oral, q8hr, PRN Nausea/Vomiting, # 12 tab(s), Refills(s) 0, Pharmacy: [facility]/pharmacy #[id number], 157, cm, 06/28/24 11:04:00 EST, Height/Length Dosing, 99.5, kg, 06/28/24 11:04:00 EST, Weight Dosing Basic Metabolic Panel CBC w/ Auto Diff CT Abdomen/Pelvis w/o Contrast eGFR Hepatic Function Panel Lipase Level UA with Cult Rflx Urine Culture Future Appointments Appointment Date:09/21/2024 09:20:00 AM Scheduled Provider:Awais BAI, Dyan Cid Location:[facility]ONCOLOGY Appointment Type:ONC Office Visit 20 ([facility]) Diagnostic Tests Pending * Urine Culture 06/28/24 Future Scheduled Tests Laboratory* CBC w/ Auto Diff 09/14/24 * Ferritin 09/14/24 * Folate Level 09/14/24 * Iron Level 09/14/24 * Iron Percent Saturation 09/14/24 * Transferrin 09/14/24 * Vitamin B12 Level 09/14/24 [facility] 12-08-2024 NoteED Patient Education Note Obstetrics and Gynecology Urinary Tract Infection, Adult A urinary tract infection (UTI) is an infection of any part of the urinary tract. The urinary tractincludes: ??? The kidneys. ??? The ureters. ??? The bladder. ??? The urethra. These organs make, store, and get rid of pee (urine) in the body. What are the causes? This infection is caused by germs (bacteria) in your genital area. These germs grow and cause swelling (inflammation) of your urinary tract. What increases the risk? The following factors may make you more likely to develop this condition: ??? Using a small, thin tube (catheter) to drain pee. ??? Not being able to control when you pee or poop (incontinence). ??? Being female. If you are female, these things can increase the risk: ? Using these methods to prevent : ? A medicine that kills sperm (spermicide). ? A device that blocks sperm (diaphragm). ? Having low levels of a female hormone (estrogen). ? Being . You are more likely to develop this condition if: ??? You have genes that add to your risk. ??? You are sexually active. ??? You take antibiotic medicines. ??? You have trouble peeing because of: ? A prostate that is bigger than normal, if you are male. ? A blockage in the part of your body that drains pee from the bladder. ? A kidney stone. ? A nerve condition that affects your bladder. ? Not getting enough to drink. ? Not peeing often enough. ??? You have other conditions, such as: ? Diabetes. ? A weak disease-fighting system (immune system). ? Sickle cell disease. ? Gout. ? Injury of the spine. What are the signs or symptoms? Symptoms of this condition include: ??? Needing to pee right away. ??? Peeing small amounts often. ??? Pain or burning when peeing. ??? Blood in the pee. ??? Pee that smells bad or not like normal. ??? Trouble peeing. ??? Pee that is cloudy. ??? Fluid coming from the vagina, if you are female. ??? Pain in the belly or lower back. Other symptoms include: ??? Vomiting. ??? Not feeling hungry. ??? Feeling mixed up (confused). This may be the first symptom in older adults. ??? Being tired and grouchy (irritable). ??? A fever. ??? Watery poop (diarrhea). How is this treated? Taking antibiotic medicine. ??? Taking other medicines. ??? Drinking enough water. In some cases, you may need to see a specialist. Follow these instructions at home: Medicines ??? Take uttj-nis-evkpuey and prescription medicines only as told by your doctor. ??? If you were prescribed an antibiotic medicine, take it as told by your doctor. Do not stop taking it even if you start to feel better. General instructions ??? Make sure you: ? Pee until your bladder is empty. ? Do not hold pee for a long time. ? Empty your bladder after sex. ? Wipe from front to back after peeing or pooping if you are a female. Use each tissue one time when you wipe. ??? Drink enough fluid to keep your pee pale yellow. ??? Keep all follow-up visits. Contact a doctor if: ??? You do not get better after 1?2 days. ??? Your symptoms go away and then come back. Get help right away if: ??? You have very bad back pain. ??? You have very bad pain in your lower belly. ??? You have a fever. ??? You have chills. ??? You feeling like you will vomit or you vomit. Summary ??? A urinary tract infection (UTI) is an infection of any part of the urinary tract. ??? This condition is caused by germs in your genital area. ??? There are many risk factors for a UTI. ??? Treatment includes antibiotic medicines. ??? Drink enough fluid to keep your pee pale yellow. This information is not intended to replace advice given to you by your health care provider. Make sure you discuss any questions you have with your health care provider. Document Revised: 02/12/2021 Document Reviewed: 02/17/2021 Smart Surgical Patient Education ? 2023 [employer].[facility] 06-22-2024 NoteOncology Progress Note Chief Complaint Follow up on Anemia and B-12 injectioin today. No questions or concerns today. Diagnoses 1. B12 deficiency anemia (D51.9: Vitamin B12 deficiency anemia, unspecified) 2. Acquired iron deficiency anemia due to increased iron requirement (D50.8: Other iron deficiency anemias) Currently (Z34.90: Encounter for supervision of normal , unspecified, unspecifiedtrimester) Oncological History/ROS/PE/Assessment and Plan Chief Complaint Elevated total protein and recurrent infections History of Present Illness Emma is a 38-year-old nice lady with a history of polycystic ovarian syndrome who has been takingmetformin for that and has been having about 4 or strep throat a year almost yearly and who recently had a pneumonia beginning of May 2023 required use of prednisone and doxycycline was referredto our hematology clinic to be evaluated for elevated total protein found on recent labs done on 05/29/2023 with total protein of 8.5 but with normal albumin, normal globulin, normal hemoglobin creatinine and calcium level as well. At that time she had the pneumonia and she was treated with the prednisone her total WBCs was 14,000 mainly on neutrophils. Absolute lymphocyte count was normal. Her labs revealed elevated AST of 51. Patient never drank alcohol and denied tobacco smoking as well. She had 7 total pregnancies and 5 alive kids with 2 miscarriages and 11 weeks and 8 weeks. She never had thrombotic events. Last time she was checked for HIV during her last was in 2018. She is not aware of having or ever had been tested for hepatitis B or C as well. She has been with the same sexual partner for years as well. On review of system patient stated that she has joint pain especially in her fingers and they get puffy at times. Patient stated that she wheezes when she had cough and she has been coughing for 2 months from April 2023 till initial consult visit on 06/25/2023. She denied chest pain or shortness of breath unless she exerts herself. She has red cheeks and she is not sure of her grandma had SLE. Her mom had osteoarthritis and is not aware of anybody had other rheumatological diseases. Her maternal grandmother had bladder cancer. 08/05/23: She is here for the results of the labs from 3 weeks ago as an evaluation for the elevated total protein, recurrent infections, malar rash, and elevated liver function test. She is taking her high-dose vitamin D as recommended by her primary care physician. He denies any new complaints. Labs on 06/25/2023 revealed normal CBC with a white count of 10.6, hemoglobin 12.6, platelet 430. Creatinine is normal 0.9 and calcium is normal 9.5. LFTs alk phos is 89, ALT 36 AST 25 total protein is elevated again 8.4. Uric acid is 6.7. The iron is 59 and the iron saturation 14% below TIBC is high 425 and ferritin is 60. Folate is over 22. TSH 1.88 and free T40.92. Immunoglobulins revealed IgA less than 5 w hich can explain recurrent respiratory infections, IgE is 16 which is low normal. IgM is normal 158, whereas the IgA is normal is high in 1848. Monoclonal protein not observed in the serum. C ANCA and P ANCA were negative and the HOMERO was negative and rheumatoid factor was normal 10.6. Angiotensin-converting enzyme was normal at 41. 24-hour urine protein was normal and urinary M spike was not observed. Skeletal bone survey was negative for lytic bone lesions. Ultrasound of the liver revealed hepatomegaly with hepatic steatosis and cholecystectomy. The liverwas 25.4 cm. 03/30/24: She is here for 6 months follow up for myeloma labs, iron studies, CBCB and b12 results. She is 6 months now and denied any new complaints. She tested negative for RF again on 03/30/24. -Preliminary myeloma labs 03/25/24 reviewed IgA level less than 5 but the IgG is normal and the IgM is normal. [place] light chain in the serum was elevated 2. She has normal lambda light chain and normal kappa over lambda ratio and no monoclonal protein detected in the serum protein immunofixation wasnegative for monoclonality. And her RF was negative as well. She will have acquired or genetic IgA deficiency have. The acquired could be performed current seasonal allergies and sinus infections. However and regardless of the etiology of the IgA deficiency wedo not have any treatment to offer for her. IVIG would only work for IgG deficiency or combined immu nodeficiency. she denied enlarged LAP. She is taking iron 65 mg bid but no b12. She takes vitamins as well. 06/22/24: She is here for 7 weeks follow up for IVAN and B12 deficiencybut she delivered vaginally on 05/25/24.She did not have much of vaginal bleeding . She received IV Venofer last visit in March 2024. She has been receiving her B12 injections weekly since last visit March 30, 2024. Labs on 06/19/2024 revealed hemoglobin improved to 12.7 with normal WBC and platelet count. MCV is normal 88.0. Iron studies revealed iron sat (more content not included)...[facility]11-30-2024 NotePatient Education Nutrition BMI for Adults Body mass index (BMI) is a number found using a person's weight and height. BMI can help tell how much of a person's weight is made up of fat. BMI does not measure body fat directly. It is used instead of tests that directly measure body fat, which can be difficult and expensive. What are BMI measurements used for? BMI is useful to: ??? Find out if your weight puts you at higher risk for medical problems. ??? Help recommend changes, such as in diet and exercise. This can help you reach a healthy weight.BMI screening can be done again to see if these changes are working. How is BMI calculated? Your height and weight are measured. The BMI is found from those numbers. This can be done with U.S. or metric measurements. Note that charts and online BMI calculators are available to help you findyour BMI quickly and easily without doing these calculations. To calculate your BMI in U.S. measurements: 1. Measure your weight in pounds (lb). 2. Multiply the number of pounds by 703. ??? So, for an adult who weighs 150 lb, multiply that number by 703: 150 x 703, which equals 105,450. 3. Measure your height in inches. Then multiply that number by itself to get a measurement called inches squared. ??? So, for an adult who is 70 inches tall, the inches squared measurement is 70 inches x 70 inches, which equals 4,900 inches squared. 4. Divide the total from step 2 (number of lb x 703) by the total from step 3 (inches squared): 105,450 ? 4,900 = 21.5. This is your BMI. To calculate your BMI in metric measurements: 1. Measure your weight in kilograms (kg). ??? For this example, the weight is 70 kg. 2. Measure your height in meters (m). Then multiply that number by itself to get a measurement called meters squared. ??? So, for an adult who is 1.75 m tall, the meters squared measurement is 1.75 m x 1.75 m, whichequals 3.1 meters squared. 3. Divide the number of kilograms (your weight) by the meters squared number. In this example: 70 ?3.1 = 22.6. This is your BMI. What do the results mean? BMI charts are used to see if you are underweight, normal weight, overweight, or obese. The following guidelines will be used: ??? Underweight: BMI less than 18.5. ??? Normal weight: BMI between 18.5 and 24.9. ??? Overweight: BMI between 25 and 29.9. ??? Obese: BMI of 30 or above. BMI is a tool and cannot diagnose a condition. Talk with your health care provider about what your BMI means for you. Keep these notes in mind: ??? Weight includes fat and muscle. Someone with a muscular build, such as an athlete, may have a BMI that is higher than 24.9. In cases like these, BMI is not a correct measure of body fat. ??? If you have a BMI of 25 or higher, your provider may need to do more testing to find out if excess body fat is the cause. ??? BMI is measured the same way for males and females. Females usually have more body fat than males of the same height and weight. Where to find more information For more information about BMI, including tools to quickly find your BMI, go to: ??? Centers for Disease Control and Prevention: cdc.gov ??? [place] [employer]: heart.org ??? National Heart, Lung, and Blood [place]: nhlbi.nih.gov This information is not intended to replace advice given to you by your health care provider. Make sure you discuss any questions you have with your health care provider. Document Revised: 03/28/2023 Document Reviewed: 03/21/2023 Smart Surgical Patient Education ? 2023 [employer]. Orthopedics Tendinitis Tendinitis is irritation and swelling (inflammation) of a tendon. A tendon is a cord of tissue thatconnects muscle to bone. Tendinitis is most common in the shoulder, ankle, elbow, or wrist. What are the causes? Using a tendon or muscle too much (overuse). This is the most common cause. ??? Wear and tear that happens as you age. ??? Injury. ??? Some medical conditions, such as arthritis. ??? Some medicines. What increases the risk? You are more likely to get this condition if you do activities that involve the same movements overand over again (repetitive motions). What are the signs or symptoms? Pain. ??? Tenderness. ??? Mild swelling. ??? Decreased range of motion. How is this treated? This condition is usually treated with RICE therapy. RICE stands for: ??? Rest. ??? Ice. ??? Compression. This means putting pressure on the affected area. ??? Elevation. This means raising the affected area above the level of your heart. Treatment may also include: ??? Medicines for swelling or pain. ??? Exercises or physical therapy to help your tendon move better and get stronger. ??? A brace or splint. ??? A shot (injection) of a type of medicine called corticosteroid. ??? Surgery. This is rarely needed. Follow these instructions at home: If you have a splint or (more content not included)...[facility]11-26-2024 History of Present illness Narrative* Rubén Núñez MD - 06/16/2024 2:50 PM EST Subjective Ilda Viera is a 39 y.o. female Chief Complaint Follow-up HPI Patient is in the office for follow-up for hypertension and SVT. She had delivered a baby few weeksago healthy boy and she brought the baby with her to the office. Since her delivery she had 1 episode of SVT requiring visit to the emergency department where she was treated with adenosine and resolution of the problem. Also noticed hypertension after delivery requiring adding combination of amlodipine and valsartan to labetalol. In the last couple weeks she has been stable without any further SVTs and with controlled blood pressure readings. Her examination is unremarkable. Assessment/recommendations: 1-PSVT leading to recurrent visit the emergency department treated with adenosine. She is currentlyon labetalol 200 mg twice daily and well-tolerated. We discussed the option of ablation and ultimate curable option. For now we decided to stick with the medications and if this condition becomes more interrupting her lifestyle she will be referred for ablation. 2-essential hypertension, currently under control on combination of amlodipine/valsartan and labetalol 200 mg twice daily. She was advised to maintain vigilance on her blood pressure reading at home and let me know if she has any episode of hypotension that would require cutting back on the medicati ons. 3-class II obesity, she just finished her and expected more weight loss down the road. Review of Systems All other systems reviewed and are negative. Vitals: 06/16/24 1501 BP: 116/70 BP Location: Left arm Patient Position: Sitting Pulse: 60 Weight: 98.4 kg (217 lb) Height: 1.575 m (5' 2 ) Objective Physical Exam Constitutional: Appearance: Normal appearance. HENT: Nose: Nose normal. Neck: Vascular: No carotid bruit. Cardiovascular: Rate and Rhythm: Normal rate. Pulses: Normal pulses. Heart sounds: Normal heart sounds. Pulmonary: Effort: Pulmonary effort is normal. Abdominal: General: Bowel sounds are normal. Palpations: Abdomen is soft. Musculoskeletal: General: Normal range of motion. Cervical back: Normal range of motion. Right lower leg: No edema. Left lower leg: No edema. Skin: General: Skin is warm and dry. Neurological: General: No focal deficit present. Mental Status: She is alert. Psychiatric: Mood and Affect: Mood normal. Behavior: Behavior normal. Thought Content: Thought content normal. Judgment: Judgment normal. Allergies Nubain [nalbuphine] Current Medications Current Outpatient Medications: acetaminophen (Tylenol) 325 mg tablet, Take 3 tablets (975 mg) by mouth every 6 hours., Disp: 90 tablet, Rfl: 3 amlodipine-valsartan (Exforge) 5-160 mg tablet, Take 1 tablet by mouth once daily., Disp: 90 tablet, Rfl: 3 doxylamine (Unisom, doxylamine,) 25 mg tablet, Take 1 tablet (25 mg) by mouth as needed at bedtime for sleep., Disp: , Rfl: ferrous sulfate, 325 mg ferrous sulfate, tablet, Take 1 tablet (325 mg) by mouth once daily., Disp:, Rfl: ibuprofen 600 mg tablet, Take 1 tablet (600 mg) by mouth every 6 hours., Disp: 90 tablet, Rfl: 3 labetalol (Normodyne) 200 mg tablet, Take 1 tablet (200 mg) by mouth 2 times a day., Disp: , Rfl: lamoTRIgine (LaMICtal) 150 mg tablet, Take 2 tablets (300 mg) by mouth once daily at bedtime., Disp: , Rfl: levothyroxine (Tirosint) 137 mcg capsule, Take 1 capsule (137 mcg) by mouth early in the morning.. Take on an empty stomach at the same time each day, either 30 to 60 minutes prior to breakfast, Disp: , Rfl: metFORMIN (Glucophage) 1,000 mg tablet, Take 1 tablet (1,000 mg) by mouth every 12 hours., Disp: , Rfl: omeprazole (PriLOSEC) [address] capsule, Take 1 capsule (20 mg) by mouth once daily in the morning. Take before meals. Do not crush or chew., Disp: , Rfl: no115/iron/folic acid ( 19 ORAL), Take 1 tablet by mouth once daily., Disp: , Rfl: Assessment/Plan 1. SVT (supraventricular tachycardia) (CMS-HCC) Follow Up In Cardiology 2. Paroxysmal atrial fibrillation (Multi) 3. Chronic hypertension 4. BMI 39.0-39.9,adult 5. Never smoked tobacco Scribe Attestation By signing my name below, I, Gianna Lemus LPN , Curly attest that this documentation has been prepared under the direction and in the presence of Rubén Núñez MD. Provider Attestation - Scribe documentation All medical record entries made by the Scribe were at my direction and personally dictated by me. Ihave reviewed the chart and agree that the record accurately reflects my personal performance of the history, physical exam, discussion and plan. [facility] Work Phone: 1(527) 926-615911-26-2024 Instructions* Patient Instructions* Gianna Haywood LPN - 06/16/2024 2:50 PM EST Please bring all medicines, vitamins, and herbal supplements with you when you come to the office. Prescriptions will not be filled unless you are compliant with your follow up appointments or have a follow up appointment scheduled as per instruction of your physician. Refills should be requested at the time of your visit. BMI was above normal measurement. Current weight: 98.4 kg (217 lb) Weight change since last visit (-) denotes wt loss -15 lbs Weight loss needed to achieve BMI 25: 80.6 Lbs Weight loss needed to achieve BMI 30: 53.3 Lbs Provided instructions on dietary changes. Ablation discussed documented in [facility]Fire[facility] Work Phone: [phone] 135-426511-25-2024 Hospital Discharge instructions Follow Up Care 06/15/2024 08:36:38 With:Awais BAI, QUINCY Ybarra, ONC Address: When: Unknown Comments:No need for IV iron infusion this time.Start oral B12 1000 mcg daily. Stop IM B12.Increase oral iron intake by medication to bid and with nutrition.labs in 12 weeks: CBC with differential, CMP, iron studies, B12 and folate.RTC in 12 weeks. [facility] 11-09-2024 Hospital Discharge instructions Patient Education 05/30/2024 17:39:03 Strep Throat, Adult, Dgeq-up-Unns Strep Throat, Adult Strep throat is an infection of the throat. It is caused by germs (bacteria). Strep throat is common during the cold months of the year. It mostly affects children who are 5 15 years old. However, people of all ages can get it at any time of the year. This infection spreads from person to person through coughing, sneezing, or having close contact. What are the causes? This condition is caused by the Streptococcus pyogenes germ. What increases the risk? You care for young children. Children are more likely to get strep throat and may spread it to others. You go to crowded places. Germs can spread easily in such places. You kiss or touch someone who has strep throat. What are the signs or symptoms? Fever or chills. Redness, swelling, or pain in the tonsils or throat. Pain or trouble when swallowing. White or yellow spots on the tonsils or throat. Tender glands in the neck and under the jaw. Bad breath. Red rash all over the body. This is rare. How is this treated? Medicines that kill germs (antibiotics). Medicines that treat pain or fever. These include: ?Ibuprofen or acetaminophen. ?Aspirin, only for people who are over the age of 18. ?Cough drops. ?Throat sprays. Follow these instructions at home: Medicines Take cyoy-ivo-nmffknx and prescription medicines only as told by your doctor. Take your antibiotic medicine as told by your doctor. Do not stop taking the antibiotic even if youstart to feel better. Eating and drinking If you have trouble swallowing, eat soft foods until your throat feels better. Drink enough fluid to keep your pee (urine) pale yellow. To help with pain, you may have: ?Warm fluids, such as soup and tea. ?Cold fluids, such as frozen desserts or popsicles. General instructions Rinse your mouth (gargle) with a salt-water mixture 3 4 times a day or as needed. To make a salt-water mixture, dissolve 1 tsp (3 6 g) of salt in 1 cup (237 mL) of warm water. Rest as much as you can. Stay home from work or school until you have been taking antibiotics for 24 hours. Do not smoke or use any products that contain nicotine or tobacco. If you need help quitting, ask your doctor. Keep all follow-up visits. How is this prevented? Do not share food, drinking cups, or personal items. They can cause the germs to spread. Wash your hands well with soap and water. Make sure that all people in your house wash their hands well. Have family members tested if they have a fever or a sore throat. They may need an antibiotic if they have strep throat. Contact a doctor if: You have swelling in your neck that keeps getting bigger. You get a rash, cough, or earache. You cough up a thick fluid that is green, yellow-brown, or bloody. You have pain that does not get better with medicine. Your symptoms get worse instead of getting better. You have a fever. Get help right away if: You vomit. You have a very bad headache. Your neck hurts or feels stiff. You have chest pain or are short of breath. You have drooling, very bad throat pain, or changes in your voice. Your neck is swollen, or the skin gets red and tender. Your mouth is dry, or you are peeing less than normal. You keep feeling more tired or have trouble waking up. Your joints are red or painful. These symptoms may be an emergency. Do not wait to see if the symptoms will go away. Get help rightaway. Call your local emergency services (911 in the [place] Summary Strep throat is an infection of the throat. It is caused by germs (bacteria). This infection can spread from person to person through coughing, sneezing, or having close contact. Take your medicines, including antibiotics, as told by your doctor. Do not stop taking the antibiotic even if you start to feel better. To prevent the spread of germs, wash your hands well with soap and water. Have others do the same. Do not share food, drinking cups, or personal items. Get help right away if you have a bad headache, chest pain, shortness of breath, a stiff or painfulneck, or you vomit. This information is not intended to replace advice given to you by your health care provider. Make sure you discuss any questions you have with your health care provider. Document Revised: 10/31/2021 Document Reviewed: 10/31/2021 [employer] Patient Education 2023 [employer]. 05/30/2024 17:39:03 Pharyngitis, Utgf-ar-Bkag Pharyngitis Pharyngitis is a sore throat (pharynx). This is when there is redness, pain, and swelling in your throat. Most of the time, this condition gets better on its own. In some cases, you may need medicine. What are the causes? An infection from a virus. An infection from bacteria. Allergies. What increases the risk? Being 5 24 years old. Being in crowded environments. These include: ?Daycares. ?Schools. ?Dormitories. Living in a place with cold temperatures outside. Having a weakened disease-fighting (immune) system. What are the signs or symptoms? Symptoms may vary depending on the cause. Common symptoms include: Sore throat. Tiredness (fatigue). Low-grade fever. Stuffy nose. Cough. Headache. Other symptoms may include: Glands in the neck (lymph nodes) that are swollen. Skin rashes. Film on the throat or tonsils. This can be caused by an infection from bacteria. Vomiting. Red, itchy eyes. Loss of appetite. Joint pain and muscle aches. Tonsils that are temporarily bigger than usual (enlarged). How is this treated? Many times, treatment is not needed. This condition usually gets better in 3 4 days without treatment. If the infection is caused by a bacteria, you may be need to take antibiotics. Follow these instructions at home: Medicines Take cmoq-sjl-rskzdfe and prescription medicines only as told by your doctor. If you were prescribed an antibiotic medicine, take it as told by your doctor. Do not stop taking the antibiotic even if you start to feel better. Use throat lozenges or sprays to soothe your throat as told by your doctor. Children can get pharyngitis. Do not give your child aspirin. Managing pain To help with pain, try: Sipping warm liquids, such as: ?Broth. ?Herbal tea. ?Warm water. Eating or drinking cold or frozen liquids, such as frozen ice pops. Rinsing your mouth (gargle) with a salt water mixture 3 4 times a day or as needed. ?To make salt water, dissolve 1 tsp (3 6 g) of salt in 1 cup (237 mL) of warm water. ?Do not swallow this mixture. Sucking on hard candy or throat lozenges. Putting a cool-mist humidifier in your bedroom at night to moisten the air. Sitting in the bathroom with the door closed for 5 10 minutes while you run hot water in the shower. General instructions Do not smoke or use any products that contain nicotine or tobacco. If you need help quitting, ask your doctor. Rest as told by your doctor. Drink enough fluid to keep your pee (urine) pale yellow. How is this prevented? Wash your hands often for at least 20 seconds with soap and water. If soap and water are not available, use hand exhibits coordinator. Do not touch your eyes, nose, or mouth with unwashed hands. Wash hands after touching these areas. Do not share cups or eating utensils. Avoid close contact with people who are sick. Contact a doctor if: You have large, tender lumps in your neck. You have a rash. You cough up green, yellow-brown, or bloody spit. Get help right away if: You have a stiff neck. You drool or cannot swallow liquids. You cannot drink or take medicines without vomiting. You have very bad pain that does not go away with medicine. You have problems breathing, and it is not from a stuffy nose. You have new pain and swelling in your knees, ankles, wrists, or elbows. These symptoms may be an emergency. Get help right away. Call your local emergency services (911 int [place] Do not wait to see if the symptoms will go away. Do not drive yourself to the hospital. Summary Pharyngitis is a sore throat (pharynx). This is when there is redness, pain, and swelling in your throat. Most of the time, pharyngitis gets better on its own. Sometimes, you may need medicine. If you were prescribed an antibiotic medicine, take it as told by your doctor. Do not stop taking the antibiotic even if you start to feel better. This information is not intended to replace advice given to you by your health care provider. Make sure you discuss any questions you have with your health care provider. Document Revised: 10/04/2021 Document Reviewed: 10/04/2021 [employer] Patient Education 2023 [employer]. Follow Up Care 05/30/2024 14:41:42 With:Neva Pearson Address: [address], [facility] [address] [place] [address]- Business (1) When:06/02/2024 17:31:05 With:Linda Taylor Address: [address], [facility] [address] [place] [address]- Business (1) When:06/02/2024 16:54:21 [facility] [phone] NoteED Patient Education Note Infectious Disease Strep Throat, Adult Strep throat is an infection of the throat. It is caused by germs (bacteria). Strep throat is common during the cold months of the year. It mostly affects children who are 5?15 years old. However, people of all ages can get it at any time of the year. This infection spreads from person to person through coughing, sneezing, or having close contact. What are the causes? This condition is caused by the Streptococcus pyogenes germ. What increases the risk? You care for young children. Children are more likely to get strep throat and may spread it to others. ??? You go to crowded places. Germs can spread easily in such places. ??? You kiss or touch someone who has strep throat. What are the signs or symptoms? Fever or chills. ??? Redness, swelling, or pain in the tonsils or throat. ??? Pain or trouble when swallowing. ??? White or yellow spots on the tonsils or throat. ??? Tender glands in the neck and under the jaw. ??? Bad breath. ??? Red rash all over the body. This is rare. How is this treated? Medicines that kill germs (antibiotics). ??? Medicines that treat pain or fever. These include: ? Ibuprofen or acetaminophen. ? Aspirin, only for people who are over the age of 18. ? Cough drops. ? Throat sprays. Follow these instructions at home: Medicines ??? Take ggwl-wgk-gvsjlcg and prescription medicines only as told by your doctor. ??? Take your antibiotic medicine as told by your doctor. Do not stop taking the antibiotic even ifyou start to feel better. Eating and drinking ??? If you have trouble swallowing, eat soft foods until your throat feels better. ??? Drink enough fluid to keep your pee (urine) pale yellow. ??? To help with pain, you may have: ? Warm fluids, such as soup and tea. ? Cold fluids, such as frozen desserts or popsicles. General instructions ??? Rinse your mouth (gargle) with a salt-water mixture 3?4 times a day or as needed. To make a salt-water mixture, dissolve ??1 tsp (3?6 g) of salt in 1 cup (237 mL) of warm water. ??? Rest as much as you can. ??? Stay home from work or school until you have been taking antibiotics for 24 hours. ??? Do not smoke or use any products that contain nicotine or tobacco. If you need help quitting, ask your doctor. ??? Keep all follow-up visits. How is this prevented? Do not share food, drinking cups, or personal items. They can cause the germs to spread. ??? Wash your hands well with soap and water. Make sure that all people in your house wash their hands well. ??? Have family members tested if they have a fever or a sore throat. They may need an antibiotic if they have strep throat. Contact a doctor if: ??? You have swelling in your neck that keeps getting bigger. ??? You get a rash, cough, or earache. ??? You cough up a thick fluid that is green, yellow-brown, or bloody. ??? You have pain that does not get better with medicine. ??? Your symptoms get worse instead of getting better. ??? You have a fever. Get help right away if: ??? You vomit. ??? You have a very bad headache. ??? Your neck hurts or feels stiff. ??? You have chest pain or are short of breath. ??? You have drooling, very bad throat pain, or changes in your voice. ??? Your neck is swollen, or the skin gets red and tender. ??? Your mouth is dry, or you are peeing less than normal. ??? You keep feeling more tired or have trouble waking up. ??? Your joints are red or painful. These symptoms may be an emergency. Do not wait to see if the symptoms will go away. Get help rightaway. Call your local emergency services (911 in the [place] Summary ??? Strep throat is an infection of the throat. It is caused by germs (bacteria). ??? This infection can spread from person to person through coughing, sneezing, or having close contact. ??? Take your medicines, including antibiotics, as told by your doctor. Do not stop taking the antibiotic even if you start to feel better. ??? To prevent the spread of germs, wash your hands well with soap and water. Have others do the same. Do not share food, drinking cups, or personal items. ??? Get help right away if you have a bad headache, chest pain, shortness of breath, a stiff or painful neck, or you vomit. This information is not intended to replace advice given to you by your health care provider. Make sure you discuss any questions you have with your health care provider. Document Revised: 10/31/2021 Document Reviewed: 10/31/2021 [employer] Patient Education ? 2023 [employer] Pharyngitis Pharyngitis is a sore throat (pharynx). This is when there is redness, pain, and swelling in your throat. Most of the time, this condition gets better on its own. In some cases, you may need medicine. What are (more content not included)...[facility]11-06-2024 Plan of care note* Care Plan - Dilma Marino RN - 05/27/2024 6:47 PM EST Problem: Goal: Experiences normal course Outcome: Adequate for Discharge Goal: Appropriate maternal - bonding Outcome: Adequate for Discharge Goal: No s/sx of hemorrhage Outcome: Adequate for Discharge Problem: Pain - Adult Goal: Verbalizes/displays adequate comfort level or baseline comfort level Outcome: Adequate for Discharge Problem: Safety - Adult Goal: Free from fall injury Outcome: Adequate for Discharge Problem: Discharge Planning Goal: Discharge to home or other facility with appropriate resources Outcome: Adequate for Discharge [facility] Work Phone: 1(437) 504-672911-06-2024 Miscellaneous Notes* Care Plan - Dilma Marino RN - 05/27/2024 6:47 PM EST Problem: Goal: Experiences normal course Outcome: Adequate for Discharge Goal: Appropriate maternal - bonding Outcome: Adequate for Discharge Goal: No s/sx of hemorrhage Outcome: Adequate for Discharge Problem: Pain - Adult Goal: Verbalizes/displays adequate comfort level or baseline comfort level Outcome: Adequate for Discharge Problem: Safety - Adult Goal: Free from fall injury Outcome: Adequate for Discharge Problem: Discharge Planning Goal: Discharge to home or other facility with appropriate resources Outcome: Adequate for Discharge * Care Plan - Aixa Banuelos RN - 05/27/2024 3:41 PM EST The patient's goals for the shift include to be discharged home today The clinical goals for the shift include stable VS this shift VSS, pain well controlled, bleeding minimal, magnesium replacement order but stopped as it hurt patient's vein , OB notified, bottle feeding . Problem: Goal: Experiences normal course 05/27/2024 1541 by Aixa Banuelos RN Outcome: Progressing 05/27/2024 1210 by Aixa Banuelos RN Outcome: Progressing 05/27/2024 1206 by Aixa Banuelos RN Outcome: Progressing Goal: Appropriate maternal - bonding 05/27/2024 1541 by Aixa Banuelos RN Outcome: Progressing 05/27/2024 1210 by Aixa Banuelos RN Outcome: Progressing 05/27/2024 1206 by Aixa Banuelos RN Outcome: Progressing Goal: No s/sx of hemorrhage 05/27/2024 1541 by Aixa Banuelos RN Outcome: Progressing 05/27/2024 1210 by Aixa Banuelos RN Outcome: Progressing 05/27/2024 1206 by Aixa Banuelos RN Outcome: Progressing * Assessment & Plan Note - Say Hess MD - 05/27/2024 9:04 AM EST Associated Problem(s): SVT (supraventricular tachycardia) ([place]) SVT, s/p cardioversion - S/p adenosine x 2 doses at OSH with successful cardioversion. No recurrent episodes since transfer to [facility] - Cardiology consulted, recs to continue home labetalol 100 BID, If has recurrent, sustained SVT that is unable to be broken by vagal maneuvers, would repeat adenosine push as done previously (1st dose 6 mg, 2nd dose 12 mg if needed). For outpatient fuv with Dr. Núñez later this month. Appreciateongoing cards recs - S/p 24 hours telemetry in period w/o no events therefore tele to be discontinued - Optimal lytes: K>4, Mg>2, will recheck today and replete as needed cHTN - Asx and normotensive - continue labetalol 100 BID - HELLP labs neg x1 Care - ppBC: IUD interval - Formula feeding - rubella non-immune, for MMR post - DVT risk score of 5: Lovenox and SCDs Comorbidities: - Hypothyroidism: continue synthroid - Bipolar disorder: continue lamictal - PCOS: metformin held - COVID+: diagnosed 05/20 * Care Plan - Cinthya Whiting RN - 05/27/2024 4:49 AM EST Patient is progressing through goals. Lochia is light, pain is well controlled, and vital signs arestable. Problem: Goal: Experiences normal course Outcome: Progressing Problem: Goal: Appropriate maternal - bonding Outcome: Progressing Problem: Goal: No s/sx of hemorrhage Outcome: Progressing * Care Plan - John Walton RN - 05/26/2024 3:04 PM EST The patient's goals for the shift include chang with baby The clinical goals for the shift include light to scant lochia Problem: Goal: Experiences normal course Outcome: Progressing Goal: Appropriate maternal - bonding Outcome: Progressing Goal: No s/sx of hemorrhage Outcome: Progressing Patient has had stable VS and assessments, pain well controlled and bleeding has been appropriate during this shift. Mother is bonding with infant * Significant Event - Nesha Hobson RN - 05/26/2024 9:55 AM EST BP Cuff and Home Monitoring Patient meets criteria for home monitoring of blood pressure post discharge. Reason: history of chronic hypertension. Met with patient to assess for availability of home BP monitor. Patient stated she owns home BP monitor. . Patient educated on importance of continuing to monitor BP at home, recording BP on home monitoring log and s/sx of when to call her provider. Pt verbalized understanding theabove information. * Assessment & Plan Note - Fran Muller MD - 05/26/2024 7:00 AM ESTAssociated Problem(s): SVT (supraventricular tachycardia) ([facility]) SVT, s/p cardioversion - S/p adenosine x 2 doses at OSH with successful cardioversion. No recurrent episodes since transfer to [facility] - Cardiology consulted, recs to continue home labetalol 100 BID, If has recurrent, sustained SVT that is unable to be broken by vagal maneuvers, would repeat adenosine push as done previously (1st dose 6 mg, 2nd dose 12 mg if needed). For outpatient fuv with Dr. Núñez later this month. Appreciateongoinluba cards recs - S/p 24 hours telemetry in period w/o no events therefore tele to be discontinued - Optimal lytes: K>4, Mg>2 cHTN - Asx - continue labetalol 100 BID - HELLP labs neg x1 Care - ppBC: IUD interval - Formula feeding - rubella non-immune, for MMR post - DVT risk score of 5: Lovenox and SCDs Comorbidities: - Hypothyroidism: continue synthroid - Bipolar disorder: continue lamictal - PCOS: metformin held - COVID+: diagnosed 05/20, precautions in place * Care Plan - Kendall Trinidad RN - 05/26/2024 6:42 AM EST Problem: Goal: Experiences normal course Outcome: Progressing Problem: Goal: Appropriate maternal - bonding Outcome: Progressing Problem: Goal: No s/sx of hemorrhage Outcome: Progressing * Assessment & Plan Note - Mikala Akbar MD - 05/25/2024 10:03 AM EST Associated Problem(s): SVT (supraventricular tachycardia) ([facility]) SVT, s/p cardioversion - s/p adenosine x 2 doses at OSH with successful cardioversion. No recurrent episodes since transfer to [facility] - Cardiology consulted, recs to continue home labetalol 100 BID, If has recurrent, sustained SVT that is unable to be broken by vagal maneuvers, would repeat adenosine push as done previously (1st dose 6 mg, 2nd dose 12 mg if needed). For outpatient fuv with Dr. Núñez later this month. Appreciateongoinluba cards recs - For telemetry x 24 hours in PP period with telemetry nurse at bedside. Given no recurrent episodes of SVT since arrival to [facility], okay for transfer to PP floor after recovery complete - Optimal lytes: K>4, Mg>2 cHTN - Asx - continue labetalol 100 BID - HELLP labs neg x1 Care - ppBC: IUD interval - - rubella non-immune, for MMR post - DVT risk score of 5: for PP Lovenox and SCDs Comorbidities: - Hypothyroidism: continue synthroid - Bipolar disorder: continue lamictal - PCOS: metformin held - COVID+: diagnosed 05/20, precautions in place * L&D Delivery Note - Misty Dunham MD - 05/25/2024 7:16 AM EST OB Delivery Note 05/25/2024 Ilda Viera 39 y.o. Vaginal, Spontaneous Gestational Age: 36w2d /Para: Quantitative Blood Loss: Admission to Discharge: 182 mL (05/24/2024 12:10 PM - 05/25/2024 6:00 PM) Robert Viera [[id number]] Labor Events Sac identifier: Sac 1 Rupture date/time: 05/24/2024 233 Rupture type: Artificial Fluid color: Clear Fluid odor: None Labor type: Induced Onset of Labor Labor allowed to proceed with plans for an attempted vaginal ?: Yes Induction: Oxytocin, AROM, Dodson/EASI First cervical ripening date/time: 05/24/2024 1733 Induction date/time: 05/24/2024 1303 Induction indications: Other Complications: None Labor Event Times Labor onset date/time: 05/24/2024 1303 Dilation complete date/time: 05/25/2024 0616 Start pushing date/time: 05/25/2024 0624 Labor Length 1st stage: 17h 13m 2nd stage: 0h 38m 3rd stage: 0h 00m Placenta Placenta delivery date/time: 05/25/2024 0654 Placenta removal: Expressed Placenta appearance: Intact Placenta disposition: pathology Cord Vessels: 3 vessels Complications: None Delayed cord clamping?: Yes Cord clamped date/time: 05/25/2024 06:55:00 Cord blood disposition: Discarded, Refrigerator, Lab Gases sent?: No Stem cell collection (by provider): No Lacerations Episiotomy: None Perineal laceration: None Other lacerations?: No Repair suture: None Anesthesia Method: Epidural Operative Delivery Forceps attempted?: No Vacuum extractor attempted?: No Shoulder Dystocia Shoulder dystocia present?: No Wasta Delivery Time head delivered: 05/25/2024 06:54:00 date/time: 05/25/2024 06:54:00 Delivery type: Vaginal, Spontaneous Complications: None Resuscitation Method: Tactile stimulation Apgars Living status: Living Component Scores: 1 min.: 5 min.: 10 min.: 15 min.: 20 min.: Skin color: 0 1 Heart rate: 2 2 Reflex irritability: 2 2 Muscle tone: 2 2 Respiratory effort: 2 2 Total: 8 9 Apgars assigned by: 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 underwent induction in the s/o maternal SVT and delivered at 36w2d. Uncomplicated . pitocin bolus initiated. Vigorous placed on maternal abdomen for skin to skin. Delayed cord clamping. Placenta delivered spontaneously and intact with gentle traction on umbilical cord. Fundus palpated firm, midline, and at umbilicus. Vagina, perineum, and labiainspected. No lacerations noted. Dr. Blackburn was present for the eaton portions of the . Misty Dunham MD Cosigned by Kiera Blackburn MD at 05/26/2024 7:52 AM EST Associated attestation - Kiera Blackburn MD - 05/26/2024 7:52 AM EST I was present for the entirety of the procedure(s). * Significant Event - Misty Dunham MD - 05/25/2024 4:06 AM EST Labor Check Subjective: Seen at bedside in NAD. Epidural infusing. Endorsing intermittent pelvic pressure. Objective: Cervical Exam Dilation: 5 Effacement (%): 70 Station: -2 OB Examiner: Radha Dunham Assessment Movement: Present Mode: External US Baseline Heart Rate (bpm): 150 bpm (baseline change at 0312) Baseline Classification: Normal Variability: Moderate (Between 6 and 25 BPM) Pattern: Variable decelerations Pattern Observations: (RN at bedside adjusting FHR monitor) FHR Category: Category I Multiple Births: No Decelerations: No Contraction Frequency: 1.5-4 A/P: - SVE unchanged - Continue pitocin per protocol - CEFM, currently Category 1 D/w with. Dr. Sue. Misty Dunham MD PGY-2, Labor and Delivery * Significant Event - Misty Dunham MD - 05/24/2024 11:36 PM EST Labor Check/AROM Subjective: Seen at bedside in NAD. Epidural infusing. Amenable for AROM if CRB out. Objective: Cervical Exam Dilation: 5 Effacement (%): 70 Station: -2 OB Examiner: Radha Dunham Assessment Movement: Present Mode: External US Baseline Heart Rate (bpm): 140 bpm Baseline Classification: Normal Variability: Moderate (Between 6 and 25 BPM) Pattern: Accelerations Pattern Observations: (monitors unplugged while pt up to the bathroom) Multiple Births: No Decelerations: No Contraction Frequency: 2-4 A/P: - SVE performed. CRB palpated and in vault, removed. head palpated without other presenting parts. Non ballotable. AROM'd for clear fluid. - Continue pitocin per protocol - CEFM, currently Category 1 D/w with. Dr. Sue. Misty Dunham MD PGY-2, Labor and Delivery documented in this [facility] Work Phone: 1(585) 339-252011-06-2024 Plan of care note* Care Plan - Aixa Banuelos RN - 05/27/2024 3:41 PM EST The patient's goals for the shift include to be discharged home today The clinical goals for the shift include stable VS this shift VSS, pain well controlled, bleeding minimal, magnesium replacement order but stopped as it hurt patient's vein , OB notified, bottle feeding infant. Problem: Goal: Experiences normal course 05/27/2024 1541 by Aixa Banuelos RN Outcome: Progressing 05/27/2024 1210 by Aixa Banuelos RN Outcome: Progressing 05/27/2024 1206 by Aixa Banuelos RN Outcome: Progressing Goal: Appropriate maternal - bonding 05/27/2024 1541 by Aixa Banuelos RN Outcome: Progressing 05/27/2024 1210 by Aixa Banuelos RN Outcome: Progressing 05/27/2024 1206 by Aixa Banuelos RN Outcome: Progressing Goal: No s/sx of hemorrhage 05/27/2024 1541 by Aixa Banuelos RN Outcome: Progressing 05/27/2024 1210 by Aixa Banuelos RN Outcome: Progressing 05/27/2024 1206 by Aixa Banuelos RN Outcome: Progressing [facility]11-06-2024 Evaluation + Plan note* Assessment & Plan Note - Say Hess MD - 05/27/2024 9:04 AM ESTAssociated Problem(s): SVT (supraventricular tachycardia) ([facility]) SVT, s/p cardioversion - S/p adenosine x 2 doses at OSH with successful cardioversion. No recurrent episodes since transfer to [facility] - Cardiology consulted, recs to continue home labetalol 100 BID, If has recurrent, sustained SVT that is unable to be broken by vagal maneuvers, would repeat adenosine push as done previously (1st dose 6 mg, 2nd dose 12 mg if needed). For outpatient fuv with Dr. Núñez later this month. Appreciateongoing cards recs - S/p 24 hours telemetry in period w/o no events therefore tele to be discontinued - Optimal lytes: K>4, Mg>2, will recheck today and replete as needed cHTN - Asx and normotensive - continue labetalol 100 BID - HELLP labs neg x1 Care - ppBC: IUD interval - Formula feeding - rubella non-immune, for MMR post - DVT risk score of 5: Lovenox and SCDs Comorbidities: - Hypothyroidism: continue synthroid - Bipolar disorder: continue lamictal - PCOS: metformin held - COVID+: diagnosed 05/20 [facility] Work Phone: 1(982) 298-539311-06-2024 History of Present illness Narrative* Say Hess MD - 05/27/2024 8:54 AM EST Progress Note Assessment/Plan Ilda Viera is a 39 y.o., , who delivered at 36w2d gestation and is now day 2. Patient undergoing post- management for SVT, Assessment & Plan SVT (supraventricular tachycardia) ([facility]) SVT, s/p cardioversion - S/p adenosine x 2 doses at OSH with successful cardioversion. No recurrent episodes since transfer to [facility] - Cardiology consulted, recs to continue home labetalol 100 BID, If has recurrent, sustained SVT that is unable to be broken by vagal maneuvers, would repeat adenosine push as done previously (1st dose 6 mg, 2nd dose 12 mg if needed). For outpatient fuv with Dr. Núñez later this month. Appreciateongoing cards recs - S/p 24 hours telemetry in period w/o no events therefore tele to be discontinued - Optimal lytes: K>4, Mg>2, will recheck today and replete as needed cHTN - Asx and normotensive - continue labetalol 100 BID - HELLP labs neg x1 Care - ppBC: IUD interval - Formula feeding - rubella non-immune, for MMR post - DVT risk score of 5: Lovenox and SCDs Comorbidities: - Hypothyroidism: continue synthroid - Bipolar disorder: continue lamictal - PCOS: metformin held - COVID+: diagnosed 05/20 Abnormal EKG Recent URI Infection requiring contact isolation precautions Fatty liver Ilda Viera Problems (from 04/18/24 to present) Problem Noted Diagnosed Resolved with 35 completed weeks gestation ([facility]) 05/19/2024 by Gianna Haywood LPN No Priority: Medium 33 weeks gestation of ([facility]) 05/05/2024 by Ronda Sandy MD No Priority: Medium Chronic hypertension 05/05/2024 by Ronda Sandy MD No Priority: Medium Overview Signed 05/05/2024 4:57 PM by Ronda Sandy MD - Limited records available; noted to have BP of 142/72 at 18wga. Patient reports prior to20 weeks she has had multiple SBPs > 140 - Since starting metoprolol, she reports Bps 125-135 / 70-85 at home. 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 The baby's blood type is B POS. Rhogam is not indicated. Subjective Her pain is well controlled with current medications She is passing flatus She is ambulating well She is tolerating a Adult diet Regular She reports no breast or nursing problems She denies emotional concerns today Her plan for contraception is interval IUD with POP bridge Patient reports she is feeling well today. Denies palpitations, CP, SOB. Reports light bleeding. Objective Allergies: Nubain [nalbuphine] Last Vitals: Temp Pulse Resp BP MAP Pulse Ox 37 C (98.6 F) 83 14 118/79 92 98 % Vitals Min/Max Last 24 Hours: Temp Min: 36.1 C (97 F) Max: 37 C (98.6 F) Pulse Min: 75 Max: 99 Resp Min: 13 Max: 18 BP Min: 108/75 Max: 133/74 MAP (mmHg) Min: 86 Max: 95 Intake/Output: No intake or output data in the 24 hours ending 05/27/24 0854 Physical Exam: General: Examination reveals a well developed, well nourished and obese, female, in no acute distress. She is alert and cooperative. Abdomen: soft, non-tender. Fundus: firm, below umbilicus, and nontender. Extremities: no limitation in range of motion. Neurological: alert, oriented, normal speech, no focal findings or movement disorder noted. Psychological: awake and alert; oriented to person, place, and time. Lab Data: Lab Results Component Value Date WBC 8.5 05/24/2024 HGB 11.7 (L) 05/24/2024 HCT 35.3 (L) 05/24/2024 PLT 264 05/24/2024 Lab Results Component Value Date GLUCOSE 69 (L) 05/24/2024 NA 137 05/24/2024 K 3.6 05/24/2024 CL 104 05/24/2024 CO2 22 05/24/2024 ANIONGAP 15 05/24/2024 BUN 8 05/24/2024 CREATININE 0.62 05/24/2024 EGFR >90 05/24/2024 CALCIUM 8.6 05/24/2024 ALBUMIN 3.1 (L) 05/24/2024 PROT 6.5 05/24/2024 ALKPHOS 159 (H) 05/24/2024 ALT 18 05/24/2024 AST 16 05/24/2024 BILITOT 0.9 05/24/2024 A/P: Ms. Viera is a 39 y.o. PPD2 s/p undergoing management for SVT. SVT, s/p cardioversion - S/p adenosine x 2 doses at OSH with successful cardioversion. No recurrent episodes since transfer to [facility] - Cardiology consulted, recs to continue home labetalol 100 BID, If has recurrent, sustained SVT that is unable to be broken by vagal maneuvers, would repeat adenosine push as done previously (1st dose 6 mg, 2nd dose 12 mg if needed). For outpatient fuv with Dr. Núñez later this month. Appreciateongoing cards recs - S/p 24 hours telemetry in period w/o no events therefore tele to be discontinued - Optimal lytes: K>4, Mg>2, will recheck today and replete as needed -Remains asymptomatic cHTN - Asx and normotensive - continue labetalol 100 BID - HELLP labs neg x1 Care - ppBC: IUD interval - Formula feeding - rubella non-immune, for MMR post - DVT risk score of 5: Lovenox and SCDs Comorbidities: - Hypothyroidism: continue synthroid - Bipolar disorder: continue lamictal - PCOS: metformin held - COVID+: diagnosed 05/20, no longer on precautions Dispo: We discussed the recommendation for continued inpatient management until PPD3 for BP monitoring. Patient expressed strong desire for dc home today due to childcare issues for her other children. We agreed a plan to recheck electrolytes this morning and replete as needed. She will explore childcare and we will revisit dispo later today. Earl Hess MD * RAJENDRA Mary - 05/26/2024 3:49 PM EST Social Work Note Patient: Ilda Viera, 39yo, SW received referral for Ms Viera due to history of bipolar/concern for depression. She was accepting and engaged. Ms Viera reports she lives with her and children in a stable home(oldest child away at college). She states she has needed items for and good support. Ms Viera confirms she is on Lamictal and also in counseling. She reports she can talk with counselor about depression as needed. SW provided additional information and resources for depression. Ms Viera denies other concerns/needs. Ms Viera and clear from SW perspective. RAJENDRA Alarcon * Fran Muller MD - 05/26/2024 6:51 AM EST Progress Note Assessment/Plan Ilda Viera is a 39 y.o., , who delivered at 36w2d gestation and is now day 1. Assessment & Plan SVT (supraventricular tachycardia) ([facility]) SVT, s/p cardioversion - S/p adenosine x 2 doses at OSH with successful cardioversion. No recurrent episodes since transfer to [facility] - Cardiology consulted, recs to continue home labetalol 100 BID, If has recurrent, sustained SVT that is unable to be broken by vagal maneuvers, would repeat adenosine push as done previously (1st dose 6 mg, 2nd dose 12 mg if needed). For outpatient fuv with Dr. Núñez later this month. Appreciateongoing cards recs - S/p 24 hours telemetry in period w/o no events therefore tele to be discontinued - Optimal lytes: K>4, Mg>2 cHTN - Asx - continue labetalol 100 BID - HELLP labs neg x1 Care - ppBC: IUD interval - Formula feeding - rubella non-immune, for MMR post - DVT risk score of 5: Lovenox and SCDs Comorbidities: - Hypothyroidism: continue synthroid - Bipolar disorder: continue lamictal - PCOS: metformin held - COVID+: diagnosed 05/20, precautions in place Dispo: anticipate dc on PPD#3 for hypertension D/w and to be seen by Dr. Naomie Muller MD, PGY-3 OBGYN Subjective Patient reporting lots of painful contractions overnight. Not relieved with Tylenol and Motrin. Denies vision changes, GALLEGOS, CP, SOB, RUQ pain and palpitations. Lochia light. Denies breast complaints. Denies recurrent episodes of SVT. Objective Allergies: Nubain [nalbuphine] Last Vitals: Temp Pulse Resp BP MAP Pulse Ox 36.5 C (97.7 F) 79 18 105/71 82 95 % Vitals Min/Max Last 24 Hours: Temp Min: 36 C (96.8 F) Max: 36.6 C (97.9 F) Pulse Min: 64 Max: 123 Resp Min: 16 Max: 20 BP Min: 103/72 Max: 122/80 MAP (mmHg) Min: 79 Max: 94 Intake/Output: Intake/Output Summary (Last 24 hours) at 05/26/2024 0654 Last data filed at 05/25/2024 0748 Gross per 24 hour Intake -- Output 182 ml Net -182 ml Physical Exam: Constitutional: no visible distress, alert and cooperative Eyes: clear sclera Head/Neck: normocephalic Respiratory/Thorax: normal respiratory effort on RA Cardiovascular: regular rate Musculoskeletal: grossly normal ROM Extremities: BLEs symmetrical Neurological: no gross deficits appreciated Psychological: Appropriate mood and behavior Skin: warm, dry, no lesions Cosigned by Rosa Rock MD at 05/26/2024 4:25 PM EST Associated attestation - Rosa Rock MD - 05/26/2024 4:25 PM EST I saw and evaluated the patient. I personally obtained the eaton and critical portions of the historyand physical exam or was physically present for eaton and critical portions performed by the resident/fellow. I reviewed the resident/fellow's documentation and discussed the patient with the resident/taye carrillo. I agree with the resident/fellow's medical decision making as documented in the note. * Beckie Groves APRN-DIRECTOR OF [employer] - 05/25/2024 4:18 PM EST Subjective: Now PPD 0 No recurrent episodes of SVT Objective: Last Recorded Vitals: Vitals: 05/25/24 1300 05/25/24 1400 05/25/24 1500 05/25/24 1600 BP: Pulse: 80 85 88 85 Resp: Temp: TempSrc: SpO2: Last Labs: CBC - 05/24/2024: 5:09 PM 8.5 11.7 264 35.3 CMP - 05/24/2024: 5:09 PM 8.6 6.5 16 --- 0.9 4.4 3.1 18 159 PTT - No results in last year. _ _ _ Troponin I, High Sensitivity ([facility]) Date/Time Value Ref Range Status 04/18/2024 09:36 AM 40 (H) 0 - 34 ng/L Final 04/18/2024 06:00 AM 42 (H) 0 - 34 ng/L Final 04/18/2024 01:22 AM 58 (H) 0 - 34 ng/L Final Last I/O: I/O last 3 completed shifts: In: 550 [P.O.:550] Out: 500 [Urine:500] Echo: Transthoracic Echo (TTE) Complete 04/18/2024 CONCLUSIONS: 1. Left ventricular ejection fraction is normal, by visual estimate at 65-70%. 2. There is normal right ventricular global systolic function. Ejection Fractions: EF Date/Time Value Ref Range Status 04/18/2024 12:04 PM 68 % Inpatient Medications: Scheduled medications Medication Dose Route Frequency acetaminophen 975 mg oral q6h [START ON 05/26/2024] enoxaparin 60 mg subcutaneous q24h ibuprofen 600 mg oral q6h labetalol 100 mg oral BID lamoTRIgine 300 mg oral Nightly levothyroxine 137 mcg oral Daily PRN medications Medication adenosine adenosine benzocaine-menthoL bisacodyl carboprost carboprost diphenhydrAMINE Or diphenhydrAMINE hydrALAZINE hydrALAZINE labetaloL labetaloL lanolin lidocaine lidocaine loperamide loperamide magnesium hydroxide measles, mumps and rubella methylergonovine methylergonovine miSOPROStoL miSOPROStoL NIFEdipine NIFEdipine ondansetron Or ondansetron ondansetron Or ondansetron oxytocin oxytocin oxytocin oxytocin oxytocin oxytocin polyethylene glycol psyllium simethicone tranexamic acid [facility] Continuous Medications Medication Dose Last Rate Outpatient Medications: Current Outpatient Medications Medication Instructions doxylamine (UNISOM (DOXYLAMINE)) 25 mg, Nightly PRN ferrous sulfate (325 mg ferrous sulfate) 325 mg, Daily labetalol (NORMODYNE) 100 mg, oral, 2 times daily lamoTRIgine (LAMICTAL) 300 mg, Nightly levothyroxine (SYNTHROID, LEVOXYL) 137 mcg, Daily metFORMIN (Glucophage) 1,000 mg tablet 1 tablet, Every 12 hours scheduled (0630,1830) nirmatrelvir-ritonavir (Paxlovid) 300 mg (150 mg x 2)-100 mg tablet therapy pack 3 tablets, oral, 2times daily, Follow the instructions on the package omeprazole (PRILOSEC) 20 mg, Daily before breakfast no115/iron/folic acid ( 19 ORAL) 1 tablet, Daily Physical Exam: Constitutional: NAD HEENT: EOMI, no scleral icterus, MMM CV: RRR Pulm: CTAB Extremities: mild LE edema Skin: WWP Neuro: A&Ox4, no FND Psych: Mood and affect appropriate to situation Assessment/Plan Ilda Viera is a 39 y.o. at 36w1d by 6wk US who presents as transfer for induction of labor in the setting of SVT s/p cardioversion at [facility]. Cardiology is consulted for recommendations regarding SVT suppression with upcoming induction. Now PPD 0 Impression: #SVT, likely AVNRT #Hypothyroidism #Gestational hypertension -Has had SVT since teen years, increased frequency likely due to physiologic changes of . Typically breaks spontaneously, required adenosine x2 to convert at [facility] 11/3 AM -Started on metoprolol during March admission, transitioned to labetalol at recent outpatient visit -Originally planned for induction next week, team would like to proceed with induction today -TTE 04/18/24: EF 65-70%, normal RV function, no valvular abnormalities Recommendations: -Recommend continuing beta jaimie with labetalol 100 mg BID as currently scheduled to continue with suppression of SVT -If has recurrent, sustained SVT that is unable to be broken by vagal maneuvers, would repeat adenosine push as done previously (1st dose 6 mg, 2nd dose 12 mg if needed) -If adenosine is ineffective, would recommend DCCV. -Patient has outpatient follow-up with Dr. Núñez later this month, would keep that appointment. Should discuss referral to EP for SVT ablation in the future, especially given worsening frequency and very fast rates that can lead to hemodynamic instability -Maintain on telemetry -Optimal lytes: K>4, Mg>2 Cardiology will sign off Case discussed with [facility]iology Consults Please call with any questions Pager [phone] - 7a-6p; Saturday 7a-2p Pager [phone] all other times * Mikala Akbar MD - 05/25/2024 9:43 AM EST Progress Note Assessment/Plan Ilda Viera is a 39 y.o., , who delivered at 36w2d gestation and is now day 0. Assessment & Plan SVT (supraventricular tachycardia) ([facility]) SVT, s/p cardioversion - s/p adenosine x 2 doses at OSH with successful cardioversion. No recurrent episodes since transfer to [facility] - Cardiology consulted, recs to continue home labetalol 100 BID, If has recurrent, sustained SVT that is unable to be broken by vagal maneuvers, would repeat adenosine push as done previously (1st dose 6 mg, 2nd dose 12 mg if needed). For outpatient fuv with Dr. Núñez later this month. Appreciateongoing cards recs - For telemetry x 24 hours in PP period with telemetry nurse at bedside. Given no recurrent episodes of SVT since arrival to [facility], okay for transfer to PP floor after recovery complete - Optimal lytes: K>4, Mg>2 cHTN - Asx - continue labetalol 100 BID - HELLP labs neg x1 Care - ppBC: IUD interval - - rubella non-immune, for MMR post - DVT risk score of 5: for PP Lovenox and SCDs Comorbidities: - Hypothyroidism: continue synthroid - Bipolar disorder: continue lamictal - PCOS: metformin held - COVID+: diagnosed 05/20, precautions in place Dispo: anticipate dc on PPD#3 for hypertension D/w and to be seen by Dr. Naomie Muller MD, PGY-3 OBGYN Subjective Patient continues to deny CP, SOB and palpitations. Pain well controlled. Lochia light. Also deniesPEC symptoms. Objective Allergies: Nubain [nalbuphine] Last Vitals: Temp Pulse Resp BP MAP Pulse Ox (!) 35.2 C (95.4 F) 101 18 116/62 83 98 % Vitals Min/Max Last 24 Hours: Temp Min: 35.2 C (95.4 F) Max: 36.5 C (97.7 F) Pulse Min: 70 Max: 139 Resp Min: 14 Max: 20 BP Min: 109/62 Max: 136/83 MAP (mmHg) Min: 79 Max: 102 Intake/Output: Intake/Output Summary (Last 24 hours) at 05/25/2024 0944 Last data filed at 05/25/2024 0748 Gross per 24 hour Intake 550 ml Output 682 ml Net -132 ml Physical Exam: Constitutional: no visible distress, alert and cooperative Eyes: clear sclera Head/Neck: normocephalic Respiratory/Thorax: normal respiratory effort on RA Cardiovascular: regular rate Musculoskeletal: grossly normal ROM Extremities: BLEs symmetrical Neurological: no gross deficits appreciated Psychological: Appropriate mood and behavior Skin: warm, dry, no lesions Lab Data: Lab Results Component Value Date WBC 8.5 05/24/2024 HGB 11.7 (L) 05/24/2024 HCT 35.3 (L) 05/24/2024 PLT 264 05/24/2024 Lab Results Component Value Date GLUCOSE 69 (L) 05/24/2024 NA 137 05/24/2024 K 3.6 05/24/2024 CL 104 05/24/2024 CO2 22 05/24/2024 ANIONGAP 15 05/24/2024 BUN 8 05/24/2024 CREATININE 0.62 05/24/2024 EGFR >90 05/24/2024 CALCIUM 8.6 05/24/2024 ALBUMIN 3.1 (L) 05/24/2024 PROT 6.5 05/24/2024 ALKPHOS 159 (H) 05/24/2024 ALT 18 05/24/2024 AST 16 05/24/2024 BILITOT 0.9 05/24/2024 OB Attending Addendum: I saw and evaluated the patient. I personally obtained the eaton and critical portions of the historyand physical exam or was physically present for eaton and critical portions performed by the resident/fellow. I reviewed the resident/fellow's documentation and discussed the patient with the resident/taye carrillo. I agree with the resident/fellow's medical decision making as documented in the note. Patient is a 39 y.o. PPD#0 s/p , IOL for SVT requiring cardioversion prior to transfer 05/24. - Tele staff at bedside, no events since arrival, throughout peripartum and recovery so far, plan for 24 hours tele posstpartum - Asymptomatic, no recovery concerns - Cardiology following, continue home labetalol 100mg BID, no recommendation for further evaluationat this time - Replace lytes PRN - cHTN, labetalol as above, no si/sx severe disease, labs neg - COVID +, saturating well without supplemental O2, asymptomatic Okay for transfer to [facility], confirmed ability to continue telemetry monitoring Mikala Akbar MD * Misty Dunham MD - 05/24/2024 6:59 PM EST Intrapartum Progress Note Assessment/Plan Ilda Viera is a 39 y.o. at 36w1d by 6wk US who presents as transfer for IOL in the setting of SVT s/p cardioversion. SVT, s/p cardioversion - s/p adenosine x 2 doses at OSH with successful cardioversion - continue home labetalol 100 BID - tele while in labor, tele nurse at bedside - cardiology consulted - for adenosine 6mg then 12mg if SVT not resolved in 2 min - replete lytes as needed - maintain euvolemic status while in labor cHTN - pt reports GALLEGOS c/w chronic baseline headaches even prior to (09/28), continue to monitor - continue labetalol 100 BID - HELLP labs on admission pending IOL - Epidural at patient request - Recheck as clinically indicated by maternal or status - IOL started with CRB placement, for pitocin Comorbidities: - hypothyroidism: continue synthroid - bipolar: continue lamictal - PCOS: metformin held - COVID+: diagnosed Saturday, precautions in place Status - NST reactive, reassuring - Presentation cephalic based on ultrasound - EFW 7# by martha hernandez 04/23 EFW 78% - GBS collected, pending. Continue PCN - Contraception Plan: interval IUD - rubella non-immune, for MMR post Discussed with Dr. Blackburn. Misty Dunham MD PGY-2, Labor and Delivery Ilda Viera Problems (from 04/18/24 to present) Problem Noted Diagnosed Resolved with 35 completed weeks gestation ([facility]) 05/19/2024 by Gianna Haywood LPN No Priority: Medium 33 weeks gestation of ([facility]) 05/05/2024 by Ronda Sandy MD No Priority: Medium Chronic hypertension 05/05/2024 by Ronda Sandy MD No Priority: Medium Overview Signed 05/05/2024 4:57 PM by Ronda Sandy MD - Limited records available; noted to have BP of 142/72 at 18wga. Patient reports prior to20 weeks she has had multiple SBPs > 140 - Since starting metoprolol, she reports Bps 125-135 / 70-85 at home. 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 Objective Last Vitals: Temp Pulse Resp BP MAP Pulse Ox 36.2 C (97.2 F) 88 18 131/80 101 99 % Vitals Min/Max Last 24 Hours: Temp Min: 36.2 C (97.2 F) Max: 36.2 C (97.2 F) Pulse Min: 77 Max: 108 Resp Min: 18 Max: 18 BP Min: 125/75 Max: 136/83 MAP (mmHg) Min: 95 Max: 102 Intake/Output: Intake/Output Summary (Last 24 hours) at 05/24/20241948 Last data filed at 05/24/20241909 Gross per 24 hour Intake 300 ml Output -- Net 300 ml Physical Examination: General: Lying in bed in NAD Obstetric: FHT: 145 bpm, moderate variability, + accels, - decels Skin: No rashes/lesions/erythema Neuro: Awake, alert, conversational CV: Regular rate, warm and well perfused Respiratory: Even and unlabored on RA Extremities: No edema, discoloration, or pain in BLE Psych: appropriate mood and affect Lab Review: Labs in chart were reviewed. Lab Results Component Value Date WBC 8.5 05/24/2024 HGB 11.7 (L) 05/24/2024 HCT 35.3 (L) 05/24/2024 PLT 264 05/24/2024 Lab Results Component Value Date GLUCOSE 69 (L) 05/24/2024 NA 137 05/24/2024 K 3.6 05/24/2024 CL 104 05/24/2024 CO2 22 05/24/2024 ANIONGAP 15 05/24/2024 BUN 8 05/24/2024 CREATININE 0.62 05/24/2024 EGFR >90 05/24/2024 CALCIUM 8.6 05/24/2024 ALBUMIN 3.1 (L) 05/24/2024 PROT 6.5 05/24/2024 ALKPHOS 159 (H) 05/24/2024 ALT 18 05/24/2024 AST 16 05/24/2024 BILITOT 0.9 05/24/2024 Cosigned by Kiera Blackburn MD at 05/24/2024 9:51 PM EST Associated attestation - Kiera Blackburn MD - 05/24/2024 9:51 PM EST I saw and evaluated the patient. I personally obtained the eaton and critical portions of the historyand physical exam or was physically present for eaton and critical portions performed by the resident/fellow. I reviewed the resident/fellow's documentation and discussed the patient with the resident/taye carrillo. I agree with the resident/fellow's medical decision making as documented in the note. [facility] Work Phone: 1(440) 302-188811-06-2024 Plan of care note* Care Plan - Cinthya Whiting RN - 05/27/2024 4:49 AM EST Patient is progressing through goals. Lochia is light, pain is well controlled, and vital signs arestable. Problem: Goal: Experiences normal course Outcome: Progressing Problem: Goal: Appropriate maternal - bonding Outcome: Progressing Problem: Goal: No s/sx of hemorrhage Outcome: Progressing [facility]11-05-2024 Plan of care note* Care Plan - John Walton RN - 05/26/2024 3:04 PM EST The patient's goals for the shift include chang with baby The clinical goals for the shift include light to scant lochia Problem: Goal: Experiences normal course Outcome: Progressing Goal: Appropriate maternal - bonding Outcome: Progressing Goal: No s/sx of hemorrhage Outcome: Progressing Patient has had stable VS and assessments, pain well controlled and bleeding has been appropriate during this shift. Mother is bonding with [facility]11-05-2024 Note* Significant Event - Nesha Hobson RN - 05/26/2024 9:55 AM EST BP Cuff and Home Monitoring Patient meets criteria for home monitoring of blood pressure post discharge. Reason: history of chronic hypertension. Met with patient to assess for availability of home BP monitor. Patient stated she owns home BP monitor. . Patient educated on importance of continuing to monitor BP at home, recording BP on home monitoring log and s/sx of when to call her provider. Pt verbalized understanding theabove information. [facility]11-05-2024 Evaluation + Plan note* Assessment & Plan Note - Fran Muller MD - 05/26/2024 7:00 AM ESTAssociated Problem(s): SVT (supraventricular tachycardia) ([facility]) SVT, s/p cardioversion - S/p adenosine x 2 doses at OSH with successful cardioversion. No recurrent episodes since transfer to [facility] - Cardiology consulted, recs to continue home labetalol 100 BID, If has recurrent, sustained SVT that is unable to be broken by vagal maneuvers, would repeat adenosine push as done previously (1st dose 6 mg, 2nd dose 12 mg if needed). For outpatient fuv with Dr. Núñez later this month. Appreciateongoing cards recs - S/p 24 hours telemetry in period w/o no events therefore tele to be discontinued - Optimal lytes: K>4, Mg>2 cHTN - Asx - continue labetalol 100 BID - HELLP labs neg x1 Care - ppBC: IUD interval - Formula feeding - rubella non-immune, for MMR post - DVT risk score of 5: Lovenox and SCDs Comorbidities: - Hypothyroidism: continue synthroid - Bipolar disorder: continue lamictal - PCOS: metformin held - COVID+: diagnosed 05/20, precautions in place [facility] Work Phone: 1(218) 157-614311-05-2024 Plan of care note* Care Plan - Kendall Trinidad RN - 05/26/2024 6:42 AM EST Problem: Goal: Experiences normal course Outcome: Progressing Problem: Goal: Appropriate maternal - bonding Outcome: Progressing Problem: Goal: No s/sx of hemorrhage Outcome: Progressing [facility]11-04-2024 Evaluation + Plan note* Assessment & Plan Note - Mikala Akbar MD - 05/25/2024 10:03 AM ESTAssociated Problem(s): SVT (supraventricular tachycardia) ([facility]) SVT, s/p cardioversion - s/p adenosine x 2 doses at OSH with successful cardioversion. No recurrent episodes since transfer to [facility] - Cardiology consulted, recs to continue home labetalol 100 BID, If has recurrent, sustained SVT that is unable to be broken by vagal maneuvers, would repeat adenosine push as done previously (1st dose 6 mg, 2nd dose 12 mg if needed). For outpatient fuv with Dr. Núñez later this month. Appreciateongoing cards recs - For telemetry x 24 hours in PP period with telemetry nurse at bedside. Given no recurrent episodes of SVT since arrival to [facility], okay for transfer to PP floor after recovery complete - Optimal lytes: K>4, Mg>2 cHTN - Asx - continue labetalol 100 BID - HELLP labs neg x1 Care - ppBC: IUD interval - - rubella non-immune, for MMR post - DVT risk score of 5: for PP Lovenox and SCDs Comorbidities: - Hypothyroidism: continue synthroid - Bipolar disorder: continue lamictal - PCOS: metformin held - COVID+: diagnosed 05/20, precautions in place [facility] Work Phone: 1(485) 605-900011-04-2024 Labor and delivery summary note* L&D Delivery Note - Misty Dunham MD - 05/25/2024 7:16 AM EST OB Delivery Note 05/25/2024 Ilda Viera 39 y.o. Vaginal, Spontaneous Gestational Age: 36w2d /Para: Quantitative Blood Loss: Admission to Discharge: 182 mL (05/24/2024 12:10 PM - 05/25/2024 6:00 PM) Robert Viera [[id number]] Labor Events Sac identifier: Sac 1 Rupture date/time: 05/24/2024 2330 Rupture type: Artificial Fluid color: Clear Fluid odor: None Labor type: Induced Onset of Labor Labor allowed to proceed with plans for an attempted vaginal ?: Yes Induction: Oxytocin, AROM, Dodson/EASI First cervical ripening date/time: 05/24/2024 173 Induction date/time: 05/24/2024 1303 Induction indications: Other Complications: None Labor Event Times Labor onset date/time: 05/24/2024 1303 Dilation complete date/time: 05/25/2024 0616 Start pushing date/time: 05/25/2024 0624 Labor Length 1st stage: 17h 13m 2nd stage: 0h 38m 3rd stage: 0h 00m Placenta Placenta delivery date/time: 05/25/2024 0654 Placenta removal: Expressed Placenta appearance: Intact Placenta disposition: pathology Cord Vessels: 3 vessels Complications: None Delayed cord clamping?: Yes Cord clamped date/time: 05/25/2024 06:55:00 Cord blood disposition: Discarded, Refrigerator, Lab Gases sent?: No Stem cell collection (by provider): No Lacerations Episiotomy: None Perineal laceration: None Other lacerations?: No Repair suture: None Anesthesia Method: Epidural Operative Delivery Forceps attempted?: No Vacuum extractor attempted?: No Shoulder Dystocia Shoulder dystocia present?: No Wasta Delivery Time head delivered: 05/25/2024 06:54:00 date/time: 05/25/2024 06:54:00 Delivery type: Vaginal, Spontaneous Complications: None Resuscitation Method: Tactile stimulation Apgars Living status: Living Component Scores: 1 min.: 5 min.: 10 min.: 15 min.: 20 min.: Skin color: 0 1 Heart rate: 2 2 Reflex irritability: 2 2 Muscle tone: 2 2 Respiratory effort: 2 2 Total: 8 9 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 underwent induction in the s/o maternal SVT and delivered at 36w2d. Uncomplicated . pitocin bolus initiated. Vigorous infant placed on maternal abdomen for skin to skin. Delayed cord clamping. Placenta delivered spontaneously and intact with gentle traction on umbilical cord. Fundus palpated firm, midline, and at umbilicus. Vagina, perineum, and labiainspected. No lacerations noted. Dr. Blackburn was present for the eaton portions of the . Misty Dunham MD Cosigned by Kiera Blackburn MD at 05/26/2024 7:52 AM EST Associated attestation - Kiera Blackburn MD - 05/26/2024 7:52 AM EST I was present for the entirety of the procedure(s). [facility] Work Phone: 1([phone]) 604-469911-04-2024 Note* Significant Event - Misty Dunham MD - 05/25/2024 4:06 AM EST Labor Check Subjective: Seen at bedside in NAD. Epidural infusing. Endorsing intermittent pelvic pressure. Objective: Cervical Exam Dilation: 5 Effacement (%): 70 Station: -2 OB Examiner: Radha Dunham Assessment Movement: Present Mode: External US Baseline Heart Rate (bpm): 150 bpm (baseline change at 0312) Baseline Classification: Normal Variability: Moderate (Between 6 and 25 BPM) Pattern: Variable decelerations Pattern Observations: (RN at bedside adjusting FHR monitor) FHR Category: Category I Multiple Births: No Decelerations: No Contraction Frequency: 1.5-4 A/P: - SVE unchanged - Continue pitocin per protocol - CEFM, currently Category 1 D/w with. Dr. Sue. Misty Dunham MD PGY-2, Labor and Delivery [facility] Work Phone: 1(182) 113-332911-03-2024 Note* Significant Event - Misty Dunham MD - 05/24/2024 11:36 PM EST Labor Check/AROM Subjective: Seen at bedside in NAD. Epidural infusing. Amenable for AROM if CRB out. Objective: Cervical Exam Dilation: 5 Effacement (%): 70 Station: -2 OB Examiner: Radha Dunham Assessment Movement: Present Mode: External US Baseline Heart Rate (bpm): 140 bpm Baseline Classification: Normal Variability: Moderate (Between 6 and 25 BPM) Pattern: Accelerations Pattern Observations: (monitors unplugged while pt up to the bathroom) Multiple Births: No Decelerations: No Contraction Frequency: 2-4 A/P: - SVE performed. CRB palpated and in vault, removed. head palpated without other presenting parts. Non ballotable. AROM'd for clear fluid. - Continue pitocin per protocol - CEFM, currently Category 1 D/w with. Dr. Sue. Misty Dunham MD PGY-2, Labor and Delivery [facility] Work Phone: 1(227) 984-898911-03-2024 Consult note* Bharat Pollard MD - 05/24/2024 6:30 PM EST Consults History Of Present Illness: Ilda Viera is a 39 y.o. at 36w1d by 6wk US who presents as transfer for induction of labor in the setting of SVT s/p cardioversion at [facility]. Cardiology is consulted for recommendations regarding SVT suppression with upcoming induction. On interview, patient is pleasant, generally well-appearing, HDS, and without acute cardiopulmonarycomplaints. Mild LE edema consistent with her stage of . She reports long-standing historyof SVT since she was a teen, happening for many years, but with increasing frequency in the last month. She reports typically she spontaneously converts, vagal maneuvers have never worked for her. Reports her typical SVT rate is >200 bpm, SVT at [facility] reported to be in 240s, requiring twoadenosine pushes to convert. She has never been electrically cardioverted. She reports she often has headaches lately, but feeling somewhat worse today after adenosine cardioversion. 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 She recently saw Dr. Rubén Núñez outpatient on 05/19 who transitioned her from metoprolol to labetalol 100 mg BID. She was planned for induction later this week, but will be moved up giving her need for cardioversion earlier today. HR has been mostly 80-90s since transfer from [facility]. Cardiac Hx: ECG 04/18/24: Sinus, normal axis, no acute ischemic changes TTE 04/18/24: EF 65-70%, normal RV function, no valvular abnormalities Last Recorded Vitals: Vitals: 05/24/24 1809 05/24/24 1814 05/24/24 1819 05/24/24 1824 BP: Pulse: 97 94 96 108 Resp: Temp: TempSrc: SpO2: 99% 99% 99% 98% Last Labs: CBC - 05/24/2024: 5:09 PM 8.5 11.7 264 35.3 CMP - 05/24/2024: 5:09 PM 8.6 6.5 16 --- 0.9 4.4 3.1 18 159 PTT - No results in last year. _ _ _ Troponin I, High Sensitivity ([facility]) Date/Time Value Ref Range Status 04/18/2024 09:36 AM 40 (H) 0 - 34 ng/L Final 04/18/2024 06:00 AM 42 (H) 0 - 34 ng/L Final 04/18/2024 01:22 AM 58 (H) 0 - 34 ng/L Final Last I/O: No intake/output data recorded. Past Cardiology Tests (Last 3 Years): EKG: ECG 12 Lead 05/19/2024 ECG 12 lead 04/18/2024 Echo: Transthoracic Echo (TTE) Complete 04/18/2024 Ejection Fractions: EF Date/Time Value Ref Range Status 04/18/2024 12:04 PM 68 % Cath: No results found for this or any previous visit from the past 1095 days. Stress Test: No results found for this or any previous visit from the past 1095 days. Cardiac Imaging: No results found for this or any previous visit from the past 1095 days. Past Medical History: She has a past medical history of Bipolar 1 disorder (Multi), Hypothyroidism, No pertinent past medical history, and PCOS (polycystic ovarian syndrome). Past Surgical History: She has a past surgical history that includes Cholecystectomy. Social History: She reports that she has never smoked. She has never used smokeless tobacco. She reports that she does not drink alcohol and does not use drugs. Family History: Family History Problem Relation Name Age of Onset Hypertension Mother Atrial fibrillation Father Irregular heart beat Father Hypertension Father Allergies: Nubain [nalbuphine] Inpatient Medications: Scheduled medications Medication Dose Route Frequency labetalol 100 mg oral BID lamoTRIgine 300 mg oral Nightly levothyroxine 137 mcg oral Daily oral hydration 250 mL oral q4h JESSY penicillin G 3 Million Units intravenous q4h PRN medications Medication carboprost hydrALAZINE labetaloL lidocaine loperamide methylergonovine metoclopramide Or metoclopramide miSOPROStoL NIFEdipine ondansetron Or ondansetron oxytocin oxytocin oxytocin oxytocin oxytocin sodium chloride sodium chloride terbutaline tranexamic acid Continuous Medications Medication Dose Last Rate oxytocin 2-30 sen-units/min Outpatient Medications: Current Outpatient Medications Medication Instructions doxylamine (UNISOM (DOXYLAMINE)) 25 mg, Nightly PRN ferrous sulfate (325 mg ferrous sulfate) 325 mg, Daily labetalol (NORMODYNE) 100 mg, oral, 2 times daily lamoTRIgine (LAMICTAL) 300 mg, Nightly levothyroxine (SYNTHROID, LEVOXYL) 137 mcg, Daily metFORMIN (Glucophage) 1,000 mg tablet 1 tablet, Every 12 hours scheduled (0630,1830) nirmatrelvir-ritonavir (Paxlovid) 300 mg (150 mg x 2)-100 mg tablet therapy pack 3 tablets, oral, 2times daily, Follow the instructions on the package omeprazole (PRILOSEC) 20 mg, Daily before breakfast no115/iron/folic acid ( 19 ORAL) 1 tablet, Daily Physical Exam: Constitutional: NAD, pleasant HEENT: PERRLA, EOMI, no scleral icterus, MMM CV: RRR, no m/r/g, no JVD Pulm: CTAB, no increased WOB Abd: Gravid, nontender Extremities: mild LE edema Skin: WWP Neuro: A&Ox4, no FND Psych: Mood and affect appropriate to situation Assessment/Plan Ilda Viera is a 39 y.o. at 36w1d by 6wk US who presents as transfer for induction of labor in the setting of SVT s/p cardioversion at [facility]. Cardiology is consulted for recommendations regarding SVT suppression with upcoming induction. Impression: #SVT, likely AVNRT #Hypothyroidism #Gestational hypertension -Has had SVT since teen years, increased frequency likely due to physiologic changes of . Typically breaks spontaneously, required adenosine x2 to convert at [facility] 11/3 AM -Started on metoprolol during March admission, transitioned to labetalol at recent outpatient visit -Originally planned for induction next week, team would like to proceed with induction today -TTE 04/18/24: EF 65-70%, normal RV function, no valvular abnormalities Recommendations: -Recommend continuing beta jaimie with labetalol 100 mg BID as currently scheduled to continue with suppression of SVT -If has recurrent, sustained SVT that is unable to be broken by vagal maneuvers, would repeat adenosine push as done previously (1st dose 6 mg, 2nd dose 12 mg if needed) -If adenosine is ineffective, would recommend DCCV. -Patient has outpatient follow-up with Dr. Núñez later this month, would keep that appointment. Should discuss referral to EP for SVT ablation in the future, especially given worsening frequency and very fast rates that can lead to hemodynamic instability -Maintain on telemetry -Optimal lytes: K>4, Mg>2 Patient seen and staffed with cardiology attending, Dr. Parra. Cardiology will continue to follow. I spent 45 minutes in the professional and overall care of this patient. Bharat Pollard MD [facility] Work Phone: [phone]) 439-745611-03-2024 Consult note* Bharat Pollard MD - 05/24/2024 6:30 PM EST Consults History Of Present Illness: Ilda Viera is a 39 y.o. at 36w1d by 6wk US who presents as transfer for induction of labor in the setting of SVT s/p cardioversion at [facility]. Cardiology is consulted for recommendations regarding SVT suppression with upcoming induction. On interview, patient is pleasant, generally well-appearing, HDS, and without acute cardiopulmonarycomplaints. Mild LE edema consistent with her stage of . She reports long-standing historyof SVT since she was a teen, happening for many years, but with increasing frequency in the last month. She reports typically she spontaneously converts, vagal maneuvers have never worked for her. Reports her typical SVT rate is >200 bpm, SVT at [facility] reported to be in 240s, requiring twoadenosine pushes to convert. She has never been electrically cardioverted. She reports she often has headaches lately, but feeling somewhat worse today after adenosine cardioversion. 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 She recently saw Dr. Rubén Núñez outpatient on 05/19 who transitioned her from metoprolol to labetalol 100 mg BID. She was planned for induction later this week, but will be moved up giving her need for cardioversion earlier today. HR has been mostly 80-90s since transfer from [facility]. Cardiac Hx: ECG 04/18/24: Sinus, normal axis, no acute ischemic changes TTE 04/18/24: EF 65-70%, normal RV function, no valvular abnormalities Last Recorded Vitals: Vitals: 05/24/24 1809 05/24/24 1814 05/24/24 1819 05/24/24 1824 BP: Pulse: 97 94 96 108 Resp: Temp: TempSrc: SpO2: 99% 99% 99% 98% Last Labs: CBC - 05/24/2024: 5:09 PM 8.5 11.7 264 35.3 CMP - 05/24/2024: 5:09 PM 8.6 6.5 16 --- 0.9 4.4 3.1 18 159 PTT - No results in last year. _ _ _ Troponin I, High Sensitivity (CMC) Date/Time Value Ref Range Status 04/18/2024 09:36 AM 40 (H) 0 - 34 ng/L Final 04/18/2024 06:00 AM 42 (H) 0 - 34 ng/L Final 04/18/2024 01:22 AM 58 (H) 0 - 34 ng/L Final Last I/O: No intake/output data recorded. Past Cardiology Tests (Last 3 Years): EKG: ECG 12 Lead 05/19/2024 ECG 12 lead 04/18/2024 Echo: Transthoracic Echo (TTE) Complete 04/18/2024 Ejection Fractions: EF Date/Time Value Ref Range Status 04/18/2024 12:04 PM 68 % Cath: No results found for this or any previous visit from the past 1095 days. Stress Test: No results found for this or any previous visit from the past 1095 days. Cardiac Imaging: No results found for this or any previous visit from the past 1095 days. Past Medical History: She has a past medical history of Bipolar 1 disorder (Multi), Hypothyroidism, No pertinent past medical history, and PCOS (polycystic ovarian syndrome). Past Surgical History: She has a past surgical history that includes Cholecystectomy. Social History: She reports that she has never smoked. She has never used smokeless tobacco. She reports that she does not drink alcohol and does not use drugs. Family History: Family History Problem Relation Name Age of Onset Hypertension Mother Atrial fibrillation Father Irregular heart beat Father Hypertension Father Allergies: Nubain [nalbuphine] Inpatient Medications: Scheduled medications Medication Dose Route Frequency labetalol 100 mg oral BID lamoTRIgine 300 mg oral Nightly levothyroxine 137 mcg oral Daily oral hydration 250 mL oral q4h JESSY penicillin G 3 Million Units intravenous q4h PRN medications Medication carboprost hydrALAZINE labetaloL lidocaine loperamide methylergonovine metoclopramide Or metoclopramide miSOPROStoL NIFEdipine ondansetron Or ondansetron oxytocin oxytocin oxytocin oxytocin oxytocin sodium chloride sodium chloride terbutaline tranexamic acid Continuous Medications Medication Dose Last Rate oxytocin 2-30 sen-units/min Outpatient Medications: Current Outpatient Medications Medication Instructions doxylamine (UNISOM (DOXYLAMINE)) 25 mg, Nightly PRN ferrous sulfate (325 mg ferrous sulfate) 325 mg, Daily labetalol (NORMODYNE) 100 mg, oral, 2 times daily lamoTRIgine (LAMICTAL) 300 mg, Nightly levothyroxine (SYNTHROID, LEVOXYL) 137 mcg, Daily metFORMIN (Glucophage) 1,000 mg tablet 1 tablet, Every 12 hours scheduled (0630,1830) nirmatrelvir-ritonavir (Paxlovid) 300 mg (150 mg x 2)-100 mg tablet therapy pack 3 tablets, oral, 2times daily, Follow the instructions on the package omeprazole (PRILOSEC) 20 mg, Daily before breakfast no115/iron/folic acid ( 19 ORAL) 1 tablet, Daily Physical Exam: Constitutional: NAD, pleasant HEENT: PERRLA, EOMI, no scleral icterus, MMM CV: RRR, no m/r/g, no JVD Pulm: CTAB, no increased WOB Abd: Gravid, nontender Extremities: mild LE edema Skin: WWP Neuro: A&Ox4, no FND Psych: Mood and affect appropriate to situation Assessment/Plan Ilda Viera is a 39 y.o. at 36w1d by 6wk US who presents as transfer for induction of labor in the setting of SVT s/p cardioversion at [facility]. Cardiology is consulted for recommendations regarding SVT suppression with upcoming induction. Impression: #SVT, likely AVNRT #Hypothyroidism #Gestational hypertension -Has had SVT since teen years, increased frequency likely due to physiologic changes of . Typically breaks spontaneously, required adenosine x2 to convert at [facility] 11/3 AM -Started on metoprolol during March admission, transitioned to labetalol at recent outpatient visit -Originally planned for induction next week, team would like to proceed with induction today -TTE 04/18/24: EF 65-70%, normal RV function, no valvular abnormalities Recommendations: -Recommend continuing beta jaimie with labetalol 100 mg BID as currently scheduled to continue with suppression of SVT -If has recurrent, sustained SVT that is unable to be broken by vagal maneuvers, would repeat adenosine push as done previously (1st dose 6 mg, 2nd dose 12 mg if needed) -If adenosine is ineffective, would recommend DCCV. -Patient has outpatient follow-up with Dr. Núñez later this month, would keep that appointment. Should discuss referral to EP for SVT ablation in the future, especially given worsening frequency and very fast rates that can lead to hemodynamic instability -Maintain on telemetry -Optimal lytes: K>4, Mg>2 Patient seen and staffed with cardiology attending, Dr. Parra. Cardiology will continue to follow. I spent 45 minutes in the professional and overall care of this patient. Bharat Pollard MD documented in this [facility] Work Phone: 1(374) 268-289011-03-2024 History and physical note* Misty Delgado MD - 05/24/2024 5:08 PM EST OB Admission H&P Assessment/Plan Ilda Viera is a 39 y.o. at 36w1d by 6wk US who presents as transfer for IOL in the setting of SVT s/p cardioversion. SVT, s/p cardioversion - s/p adenosine x 2 doses at OSH with successful cardioversion - continue home labetalol 100 BID - tele while in labor, tele nurse at bedside - cardiology consulted - for adenosine 6mg then 12mg if SVT not resolved in 2 min - replete lytes as needed - maintain euvolemic status while in labor CHTN - pt reports GALLEOGS c/w chronic baseline headaches even prior to (09/28), continue to monitor - continue labetalol 100 BID - HELLP labs on admission pending IOL -Admit to L&D, consented -T&S, CBC, and Syphilis -Epidural at patient request -Recheck as clinically indicated by maternal or status - IOL started with CRB placement, for pitocin Comorbidities: - hypothyroidism: continue synthroid - bipolar: continue lamictal - PCOS: metformin held - COVID+: diagnosed Saturday, precautions in place Status -NST reactive, reassuring -Presentation cephalic based on ultrasound - EFW 7# by david, last US 04/23 EFW 78% -GBS collected, pending. For PCN - Contraception Plan: interval IUD - rubella non-immune, for MMR post Discussed with Dr. Barrera Delgado MD PGY-3, Obstetrics and Gynecology Ilda Viera Problems (from 04/18/24 to present) Problem Noted Diagnosed Resolved with 35 completed weeks gestation ([facility]) 05/19/2024 by Gianna Haywood LPN No Priority: Medium 33 weeks gestation of ([facility]) 05/05/2024 by Ronda Sandy MD No Priority: Medium Chronic hypertension 05/05/2024 by Ronda Sandy MD No Priority: Medium Overview Signed 05/05/2024 4:57 PM by Ronda Sandy MD - Limited records available; noted to have BP of 142/72 at 18wga. Patient reports prior to20 weeks she has had multiple SBPs > 140 - Since starting metoprolol, she reports Bps 125-135 / 70-85 at home. 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 at 36w1d by 6wk who presents as transfer for SVT s/p cardioversion. Decision made to proceed with IOL in s/o SVT. Patient was seen at OSH for palpitations and chest pain, found to be in SVT and received adenosine x2 and was successfully cardioverted. She has known history of SVT with prior spontaneous cardioversion, follows with cardiology and is on labetalol 100 BID (previously was on metoprolol). Currently, she feels well. Chest pain has resolved since SVT resolved. She does report a 3/10 headache which is consistent with her chronic headaches she has had even prior to . Denies vision changes, CP, SOB, or RUQ pain. Also reports covid diagnosed Saturday. Good movement. Denies vaginal bleeding., Denies leaking of fluid, does feel occasional ctx, unable to time. notable for: - SVT s/p cardioversion previously this , on labetalol 100mg BID - cHTN on labetalol as above - hypothyroidism on synthroid 137 mon -sat, 274 sun - bipolar disorder on lamictal - PCOS on metformin continued this Provider: Angela Barajas OB History Para Term AB Living 8 5 5 0 2 5 SAB IAB Ectopic Multiple Live Births 2 0 0 0 5 # Outcome Date GA Lbr Kvng/2nd Weight Sex Type Anes PTL Lv 8 Current 7 SAB 6 SAB 5 Term Vag-Spont IZABEL 4 Term Vag-Spont IZABEL 3 Term Vag-Spont IZABEL 2 Term Vag-Spont IZABEL 1 Term Vag-Spont IZABEL Past Surgical History: Procedure Laterality Date CHOLECYSTECTOMY Social History Tobacco Use Smoking status: Never Smokeless tobacco: Never Substance Use Topics Alcohol use: Never Allergies Allergen Reactions Nubain [Nalbuphine] Hallucinations Medications Prior to Admission Medication Sig Dispense Refill Last Dose/Taking doxylamine (Unisom, doxylamine,) 25 mg tablet Take 1 tablet (25 mg) by mouth as needed at bedtime for sleep. ferrous sulfate, 325 mg ferrous sulfate, tablet Take 1 tablet (325 mg) by mouth once daily. labetalol (Normodyne) 100 mg tablet Take 1 tablet (100 mg) by mouth 2 times a day. 180 tablet 2 lamoTRIgine (LaMICtal) 150 mg tablet Take 2 tablets (300 mg) by mouth once daily at bedtime. levothyroxine (Synthroid, Levoxyl) 137 mcg tablet Take 1 tablet (137 mcg) by mouth early in the morning.. Take 1 tablet (137 mcg) by mouth Saturday - Saturday. Take 2 tablets (274 mcg) by mouth on Saturday. metFORMIN (Glucophage) 1,000 mg tablet Take 1 tablet (1,000 mg) by mouth every 12 hours. nirmatrelvir-ritonavir (Paxlovid) 300 mg (150 mg x 2)-100 mg tablet therapy pack Take 3 tablets by mouth 2 times a day for 5 days. Follow the instructions on the package 30 tablet 0 omeprazole (PriLOSEC) [address] capsule Take 1 capsule (20 mg) by mouth once daily in the morning. Take before meals. Do not crush or chew. no115/iron/folic acid ( 19 ORAL) Take 1 tablet by mouth once daily. Objective Last Vitals Temp Pulse Resp BP MAP O2 Sat 36.2 C (97.2 F) 99 18 136/83 102 100 % Blood Pressures 05/24/2024 1235 05/24/2024 1329 BP: 125/83 136/83 Physical Exam General: NAD, mood appropriate Cardiopulmonary: warm and well perfused, breathing comfortably on room air Abdomen: Gravid, non-tender Extremities: Symmetric Cervix: Fingertip /30 /-3 Patient was placed in dorsal lithotomy position, a speculum was placed, and a cervical ripening balloon was guided through the external and internal cervical os with a ring forceps. The balloon was inflated with 60cc of normal saline. Moderate amount of bleeding was noted from CRB catheter. Patienttolerated the procedure well. Monitoring Baseline: 130 bpm, Variability: moderate, Accelerations: present and Decelerations: yes Uterine Activity: Irregular contractions Interpretation: Reactive Bedside ultrasound: Yes, cephalic Labs in chart were reviewed. labs reviewed, remarkable for rubella non-immune. Cosigned by Tal Robles MD at 05/24/2024 7:10 PM EST Associated attestation - Tal Robles MD - 05/24/2024 7:10 PM EST I saw and evaluated the patient. I personally obtained the eaton and critical portions of the historyand physical exam or was physically present for eaton and critical portions performed by the resident/fellow. I reviewed the resident/fellow's documentation and discussed the patient with the resident/taye carrillo. I agree with the resident/fellow's medical decision making as documented in the note. Tal Robles MD [facility] Work Phone: 1(419) 662-976811-03-2024 History and physical note* Misty Delgado MD - 05/24/2024 5:08 PM EST OB Admission H&P Assessment/Plan Ilda Viera is a 39 y.o. at 36w1d by 6wk US who presents as transfer for IOL in the setting of SVT s/p cardioversion. SVT, s/p cardioversion - s/p adenosine x 2 doses at OSH with successful cardioversion - continue home labetalol 100 BID - tele while in labor, tele nurse at bedside - cardiology consulted - for adenosine 6mg then 12mg if SVT not resolved in 2 min - replete lytes as needed - maintain euvolemic status while in labor CHTN - pt reports GALLEGOS c/w chronic baseline headaches even prior to (09/28), continue to monitor - continue labetalol 100 BID - HELLP labs on admission pending IOL -Admit to L&D, consented -T&S, CBC, and Syphilis -Epidural at patient request -Recheck as clinically indicated by maternal or status - IOL started with CRB placement, for pitocin Comorbidities: - hypothyroidism: continue synthroid - bipolar: continue lamictal - PCOS: metformin held - COVID+: diagnosed Saturday, precautions in place Status -NST reactive, reassuring -Presentation cephalic based on ultrasound - EFW 7# by martha hernandez 04/23 EFW 78% -GBS collected, pending. For PCN - Contraception Plan: interval IUD - rubella non-immune, for MMR post Discussed with Dr. Barrera Delgado MD PGY-3, Obstetrics and Gynecology Ilda Viera Problems (from 04/18/24 to present) Problem Noted Diagnosed Resolved with 35 completed weeks gestation ([facility]) 05/19/2024 by Gianna Haywood LPN No Priority: Medium 33 weeks gestation of ([facility]) 05/05/2024 by Ronda Sandy MD No Priority: Medium Chronic hypertension 05/05/2024 by Ronda Sandy MD No Priority: Medium Overview Signed 05/05/2024 4:57 PM by Ronda Sandy MD - Limited records available; noted to have BP of 142/72 at 18wga. Patient reports prior to20 weeks she has had multiple SBPs > 140 - Since starting metoprolol, she reports Bps 125-135 / 70-85 at home. 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 at 36w1d by 6wk US who presents as transfer for SVT s/p cardioversion. Decision made to proceed with IOL in s/o SVT. Patient was seen at OSH for palpitations and chest pain, found to be in SVT and received adenosine x2 and was successfully cardioverted. She has known history of SVT with prior spontaneous cardioversion, follows with cardiology and is on labetalol 100 BID (previously was on metoprolol). Currently, she feels well. Chest pain has resolved since SVT resolved. She does report a 3/10 headache which is consistent with her chronic headaches she has had even prior to . Denies vision changes, CP, SOB, or RUQ pain. Also reports covid diagnosed Saturday. Good movement. Denies vaginal bleeding., Denies leaking of fluid, does feel occasional ctx, unable to time. notable for: - SVT s/p cardioversion previously this , on labetalol 100mg BID - cHTN on labetalol as above - hypothyroidism on synthroid 137 mon -sat, 274 sun - bipolar disorder on lamictal - PCOS on metformin continued this Provider: Angela Barajas OB History Para Term AB Living 8 5 5 0 2 5 SAB IAB Ectopic Multiple Live Births 2 0 0 0 5 # Outcome Date GA Lbr Kvng/2nd Weight Sex Type Anes PTL Lv 8 Current 7 SAB 6 SAB 5 Term Vag-Spont IZABEL 4 Term Vag-Spont IZABEL 3 Term Vag-Spont IZABEL 2 Term Vag-Spont IZABEL 1 Term Vag-Spont IZABEL Past Surgical History: Procedure Laterality Date CHOLECYSTECTOMY Social History Tobacco Use Smoking status: Never Smokeless tobacco: Never Substance Use Topics Alcohol use: Never Allergies Allergen Reactions Nubain [Nalbuphine] Hallucinations Medications Prior to Admission Medication Sig Dispense Refill Last Dose/Taking doxylamine (Unisom, doxylamine,) 25 mg tablet Take 1 tablet (25 mg) by mouth as needed at bedtime for sleep. ferrous sulfate, 325 mg ferrous sulfate, tablet Take 1 tablet (325 mg) by mouth once daily. labetalol (Normodyne) 100 mg tablet Take 1 tablet (100 mg) by mouth 2 times a day. 180 tablet 2 lamoTRIgine (LaMICtal) 150 mg tablet Take 2 tablets (300 mg) by mouth once daily at bedtime. levothyroxine (Synthroid, Levoxyl) 137 mcg tablet Take 1 tablet (137 mcg) by mouth early in the morning.. Take 1 tablet (137 mcg) by mouth Saturday - Saturday. Take 2 tablets (274 mcg) by mouth on Saturday. metFORMIN (Glucophage) 1,000 mg tablet Take 1 tablet (1,000 mg) by mouth every 12 hours. nirmatrelvir-ritonavir (Paxlovid) 300 mg (150 mg x 2)-100 mg tablet therapy pack Take 3 tablets by mouth 2 times a day for 5 days. Follow the instructions on the package 30 tablet 0 omeprazole (PriLOSEC) [address] capsule Take 1 capsule (20 mg) by mouth once daily in the morning. Take before meals. Do not crush or chew. no115/iron/folic acid ( 19 ORAL) Take 1 tablet by mouth once daily. Objective Last Vitals Temp Pulse Resp BP MAP O2 Sat 36.2 C (97.2 F) 99 18 136/83 102 100 % Blood Pressures 05/24/2024 1235 05/24/2024 1329 BP: 125/83 136/83 Physical Exam General: NAD, mood appropriate Cardiopulmonary: warm and well perfused, breathing comfortably on room air Abdomen: Gravid, non-tender Extremities: Symmetric Cervix: Fingertip /30 /-3 Patient was placed in dorsal lithotomy position, a speculum was placed, and a cervical ripening balloon was guided through the external and internal cervical os with a ring forceps. The balloon was inflated with 60cc of normal saline. Moderate amount of bleeding was noted from CRB catheter. Patienttolerated the procedure well. Monitoring Baseline: 130 bpm, Variability: moderate, Accelerations: present and Decelerations: yes Uterine Activity: Irregular contractions Interpretation: Reactive Bedside ultrasound: Yes, cephalic Labs in chart were reviewed. labs reviewed, remarkable for rubella non-immune. Cosigned by Tal Robles MD at 05/24/2024 7:10 PM EST Associated attestation - Tal Robles MD - 05/24/2024 7:10 PM EST I saw and evaluated the patient. I personally obtained the eaton and critical portions of the historyand physical exam or was physically present for eaton and critical portions performed by the resident/fellow. I reviewed the resident/fellow's documentation and discussed the patient with the resident/f lorena. I agree with the resident/fellow's medical decision making as documented in the note. Tal Robles MD documented in this [facility] Work Phone: 1(303) 611-201611-03-2024 Evaluation + Plan noteExtracted from: Title:ED Note Author:Ricky Hall DO Date :05/24/24 SVT (supraventricular tachyc ardia) (I47.10: Supraventricular tachycardia, unspecified) Orders: adenosine, 6 mg = 2 mL, Soln-IV, IV, Once, Stop date 05/24/24 6:06:00 EST, Start date 05/24/24 6:06:00 EST adenosine, 12 mg = 4 mL, Soln-IV, IV Push, Once, Stop date 05/24/24 6:09:00 EST, STAT, Start date 05/24/24 6:09:00 EST, 05/24/24 6:09:00 EST Sodium Chloride 0.9% intravenous solution 500 mL, 500 mL, IV, 500 mL/hr, for 60 minute(s), Stop date 05/24/24 7:00:00 EST, STAT, Start date 05/24/24 6:01:00 EST, 1 hour(s), Total volume (mL): 500, 104.8 kg, 2.14, m2 Basic Metabolic Panel CBC w/ Auto Diff ECG 12 Lead Adult ECG 12 Lead Adult Magnesium Level Addendum by Bull Chamberlain, As [facility] on May 24, 2024 10:10:54 EST The care of the patient was transitioned to nd upon shift change to follow-up with blood work reevaluation and final disposition. The patient has presented with SVT. She does take labetalol 100 mg twice a day. The patient has been converted with adenosine. She has converted to sinus tachycardia initially with a second dose of adenosine and her heart rate has improved. The patient took her morning dose of labetalol. Her heart rate has been on 80s. Her chest pain and shortness of breath has completely resolved. Blood work reviewed. 2 sets of troponins are negative. The case was discussed with ALMITA Crabtree from [facility] who recommends patient be transferred to [facility] for delivery. The patient is stable. She will be transferred via [facility]. The patient is agreeable with plan of care. Future Appointments Appointment Date:06/15/2024 02:00:00 PM Scheduled Provider:Awais BAI, Dyan Cid Location:.ONCOLOGY Appointment Type:ONC Office Visit 20 (FT) Appointment Date:06/15/2024 02:15:00 PM Scheduled Provider: Location:.ONCOLOGY Appointment Type:ONC Injection (FT) Future Scheduled Tests Laboratory* CBC w/ Auto Diff 06/15/24 * Ferritin 06/15/24 * Folate Level 06/15/24 * Iron Level 06/15/24 * Iron Percent Saturation 06/15/24 * Transferrin 06/15/24 * Vitamin B12 Level 06/15/24 [facility] [id number] NoteDischarge Instructions Given Worsening The following Patient Education Materials have been given to the patient: ~~ [facility] NoteProgress Note-Nurse Patient: ILDA VIERA Age: 39 years Sex: Female : 1985 Associated Diagnoses: None Author: Camila Hood RN Basic Information Date of study 05/19/2024. Indication for procedure: mom SVT. Gestation: ambrocio. Maternal assessment movement reported: present. Contractions: denies . Leaking fluid: no. Vaginal bleeding no Pain: 0 / 10. Vital signs Systolic blood pressure: 106 mmHg. Diastolic blood pressure: 67 mmHg. Pulse: 90 beats per minute. Respirations: 18 per minute. Temperature: 98.4 degrees Fahrenheit. Gestational Age: Gestational Age (EGA) and ALICE * Note: EGA calculated as of 05/19/2024 ALICE: 06/20/2024 EGA*: 35 weeks 3 days Type: Authoritative Method Date: 04/01/2024 Method: Reported EGA/ALICE (04/01/2024) Confirmation: Confirmed Description: Due date Comments: -- Entered by: Arline Dennis RN on 04/01/2024 Other ALICE Calculations for this : No additional ALICE calculations have been recorded for this . Procedure Well Being Procedure Ambrocio Procedure was completed. movement: present. Heart tones: 130 bpm, monitored for 28 minutes, reactive, baseline description was normal (110 - 160 bpm), baseline variability moderate, heart rate accelerations were present. Contractions: occasional, irregular pattern, mild. Contractions per tocodynamometer: irregular. Uterine activity: normal. Non-stress test interpretation: reactive. Impression and Plan Patient Education & Follow-up: Follow-up: 05/25/2024 .[facility] 05-19-2024 History of Present illness Narrative* Rubén Núñez MD - 05/19/2024 10:40 AM EDT Cardiology Consultation- New Consult Reason for referral: Tachycardia HPI: Ilda Viera is a 39 y.o. female who is in her 35th -week of her 6 who has history of tachycardia since she was a teenager but was never diagnosed on electrocardiogram. It was suggestive of SVT. There has been no syncopal events. She had intermittent tachycardia when she was previously but again no electrocardiogram to diagnose her tachycardia was ever made. Recently she went to the emergency department at [facility] with tachycardia and apparently they referred her because of her at [facility] since she is a high risk had an event monitor which picked up multiple arrhythmias some of which are highly suggestive of PSVT and some are irregular raising slight concern for atrial fibrillation with RVR. The patient has learned to do the maneuvers to terminate SVT but they have been unsuccessful. She is expected to have induced delivery in2 weeks. She is currently on metoprolol tartrate 50 mg daily. She has no known history of complicated pregnancies in the past with no diabetes or hypertension. She indicated that her father had atrial fibrillation but that was following myocardial infarction. She has no history of TIA. She has no sleep apnea. Physical examination was only remarkable for BMI of 42.43 kg/m . EKG revealed normal sinus rhythm and normal ECG. Assessment/recommendations: 1-tachycardia consistent with PSVT which seems to be present since she was a teenager. Currently she is in her 35th week with plan to induce delivery in 2 weeks. Currently on beta-jaimie therapy with metoprolol. I suggested switching to more safe beta-jaimie labetalol 100 mg twice daily. The dose can be increased if necessary. should proceed as planned. Following delivery the patient need to be considered for SVT ablation. Recent echocardiogram was normal 2-infrequent episodic irregular supraventricular tachycardia raising concern for atrial fibrillation. Even if that is the case at the present time anticoagulation is not necessary. Her chads Vascor is 1 due to gender. This will be followed for now 3-patient is currently in the last trimester with expected induced delivery in 2 weeks. She will come back to see me in 6 weeks Past Medical History: She has a past medical history of No pertinent past medical history. Surgical History: She has a past surgical history that includes Cholecystectomy. Family History: Family History Problem Relation Name Age of Onset Hypertension Mother Atrial fibrillation Father Irregular heart beat Father Hypertension Father Social History: Social History Tobacco Use Smoking status: Never Smokeless tobacco: Never Substance Use Topics Alcohol use: Never Allergies: Nubain [nalbuphine] Current Medications: Current Outpatient Medications: doxylamine (Unisom, doxylamine,) 25 mg tablet, Take 1 tablet (25 mg) by mouth as needed at bedtime for sleep., Disp: , Rfl: ferrous sulfate, 325 mg ferrous sulfate, tablet, Take 1 tablet (325 mg) by mouth once daily., Disp:, Rfl: lamoTRIgine (LaMICtal) 150 mg tablet, Take 2 tablets (300 mg) by mouth once daily at bedtime., Disp: , Rfl: levothyroxine (Synthroid, Levoxyl) 137 mcg tablet, Take 1 tablet (137 mcg) by mouth early in the morning.. Take 1 tablet (137 mcg) by mouth Saturday - Saturday. Take 2 tablets (274 mcg) by mouth on Saturday., Disp: , Rfl: metFORMIN (Glucophage) 1,000 mg tablet, Take 1 tablet (1,000 mg) by mouth every 12 hours., Disp: , Rfl: omeprazole (PriLOSEC) [address] capsule, Take 1 capsule (20 mg) by mouth once daily in the morning. Take before meals. Do not crush or chew., Disp: , Rfl: no115/iron/folic acid ( 19 ORAL), Take 1 tablet by mouth once daily., Disp: , Rfl: labetalol (Normodyne) 100 mg tablet, Take 1 tablet (100 mg) by mouth 2 times a day., Disp: 180 tablet, Rfl: 2 Vitals: Vitals: 05/19/24 1059 05/19/24 1100 BP: 120/88 124/88 BP Location: Left arm Right arm Patient Position: Sitting Sitting Pulse: 79 Weight: 105 kg (232 lb) Height: 1.575 m (5' 2 ) EKG done in office today Review of Systems Constitutional: Positive for malaise/fatigue. Cardiovascular: Positive for chest pain, dyspnea on exertion, irregular heartbeat and palpitations. Neurological: Positive for light-headedness. All other systems reviewed and are negative. Objective Physical Exam Constitutional: Appearance: Normal appearance. HENT: Nose: Nose normal. Neck: Vascular: No carotid bruit. Cardiovascular: Rate and Rhythm: Normal rate. Pulses: Normal pulses. Heart sounds: Normal heart sounds. Pulmonary: Effort: Pulmonary effort is normal. Abdominal: General: Bowel sounds are normal. Palpations: Abdomen is soft. Musculoskeletal: General: Normal range of motion. Cervical back: Normal range of motion. Right lower leg: No edema. Left lower leg: No edema. Skin: General: Skin is warm and dry. Neurological: General: No focal deficit present. Mental Status: She is alert. Psychiatric: Mood and Affect: Mood normal. Behavior: Behavior normal. Thought Content: Thought content normal. Judgment: Judgment normal. Assessment and Plan: 1. SVT (supraventricular tachycardia) ([facility]) Referral to Cardiology Follow Up In Cardiology ECG 12 Lead labetalol (Normodyne) 100 mg tablet 2. Paroxysmal atrial fibrillation (Multi) 3. Never smoked tobacco 4. with 35 completed weeks gestation ([facility]) Scribe Attestation By signing my name below, Gianna Boyle LPN , Scribe attest that this documentation has been prepared under the direction and in the presence of [place] M Núñez, MD. Provider Attestation - Scribe documentation All medical record entries made by the Scribe were at my direction and personally dictated by me. Ihave reviewed the chart and agree that the record accurately reflects my personal performance of the history, physical exam, discussion and plan. documented in this [facility] Work Phone: 1(470) 158-513010-29-2024 Instructions* Patient Instructions* Gianna Haywood LPN - 05/19/2024 10:40 AM EDT Please bring all medicines, vitamins, and herbal supplements with you when you come to the office. Prescriptions will not be filled unless you are compliant with your follow up appointments or have a follow up appointment scheduled as per instruction of your physician. Refills should be requested at the time of your visit. Stop Metoprolol Start Labetalol Follow up after documented in this encounterUnC[facility] Work Phone: 1(577) 552-618510-22-2024 Telephone encounter Note* Telephone Encounter - Neva Pearson DO - 05/12/2024 8:09 AM EDT Spoke to ROMMEL Flores at in regards to patient's and condition. Dr. Metz recommended delivery at since patient needs telemetry during labor. I agree with the plan and will do weekly NST until complete transfer care. Patient has [id number] Miscellaneous Notes* Telephone Encounter - Neva Pearson DO - 05/12/2024 8:09 AM EDT Spoke to ROMMEL Flores at in regards to patient's and condition. Dr. Metz recommended delivery at since patient needs telemetry during labor. I agree with the plan and will do weekly NST until complete transfer care. Patient has upcoming appointment with MFM on 05/26 documented in this [facility]10-21-2024 NoteDischarge Instructions Given Worsening The following Patient Education Materials have been given to the patient: ~~ [facility] History of Present illness Narrative* Neva Pearson DO - 05/06/2024 8:45 AM EDT Discussed SVT and being on Metoprolol 50mg BID. Discussed delivery at since patient needs to be on telemetry. Will transfer care after next pn visit since patient's next [facility] appt on 05/26. Will start weekly NST, starting Saturday, 05/11 @ 1000 at [facility] documented in this [facility]10-03-2024 History of Present illness Narrative* Josselyn Soria NP - 04/23/2024 11:00 AM EDT Growth US today: EFW 78%, MARICRUZ 15.6, cephalic, ant placenta. Active movement. Culberson sandoval contractions. Was in ER on 04-17-24 with SVT. Resting HR in 120s. Has upcoming MFM appt 05/05. If wilmer barajas is unable to monitor maternal heart and FHR during labor, she would need to deliver @ . She was started on Metoprolol 25mg BID. documented in this [facility]09-30-2024 Hospital course Narrative * Aide Richards MD - 04/20/2024 1:45 PM EDT Discharge Summary Admission Date: 04/17/2024 Discharge Date: 04/20/2024 Discharge Diagnosis SVT (supraventricular tachycardia) ([facility]) Hospital Course 39 y.o who is 31.2 wga who presents as a transfer from [facility] for maternal SVT with elevated troponin. Patient was admitted on 04/20. Prior to [facility] admission, patient presented to [facility] for SVT with spontaneous conversion to normal sinus rhyme without intervention upon arrival. Labs notable for increasing Troponin from 10.5 to 139 (peak). On [facility] arrival, patient presented with HR in the 90's, and downtrending troponins to 40. Baseline EKG NSR. ECHO demonstratednormal EF. Cardiology was consulted and per recommendations patient was started on Metoprolol 25mg BID to be continued through discharge and 2 week outpatient Holter monitoring. Patient was placed on telemetry with one episode of 1 min long SVT HR 208 that spontaneously resolved on HD#2. During admission, patient reported intermittent 4-5/10 headache that is consistent with her baseline GALLEGOS. Patient was stable for discharge home on HD#4. Holter monitoring placed on day of discharge. Growth US (04/20) EFW 2175g 94%ile, AC 92%ile, BPP 8/8. Daily NST were reactive. Patient to continue care with OB provider as scheduled. Patient scheduled for outpatient MFM appointment in fellow's clinicon 05/05 and will schedule outpatient cardiology appointment. Pertinent Physical Exam At Time of Discharge General: AAOx3, No acute distress Cardiovascular: Warm and well perfused Respiratory: Normal respiratory effort Abdominal: Soft, gravid, non-tender, no rebound or guarding, no palpable contractions Last Vitals: Temp Pulse Resp BP MAP Pulse Ox 36.3 C (97.3 F) 102 18 124/88 100 95 % Discharge Meds Your medication list START taking these medications Instructions Last Dose Given Next Dose Due metoprolol tartrate 25 mg tablet Commonly known as: Lopressor Take 1 tablet (25 mg) by mouth every 12 hours. CONTINUE taking these medications Instructions Last Dose Given Next Dose Due ferrous sulfate (325 mg ferrous sulfate) tablet lamoTRIgine 150 mg tablet Commonly known as: LaMICtal levothyroxine 137 mcg tablet Commonly known as: Synthroid, Levoxyl metFORMIN (MOD) 1,000 mg 24 hr tablet Commonly known as: Glumetza omeprazole [address] capsule Commonly known as: PriLOSEC 19 ORAL Unisom (doxylamine) 25 mg tablet Generic drug: doxylamine Where to Get Your Medications These medications were sent to [facility] [address], [address], [facility] [address] Hours: 8AM to 6PM Mon-Fri, 8AM to 4PM Sat, 9AM to 1PM Sun metoprolol tartrate 25 mg tablet Complications Requiring Follow-Up -maternal SVT Test Results Pending At Discharge Pending Labs No current pending labs. Outpatient Follow-Up Future Appointments Date Time Provider Department Center 05/05/2024 2:30 PM Ronda Sandy MD [address] Seen and d/w Dr. Prasad Richards MD, PGY3 documented in this [facility] Work Phone: [phone]) 178-565609-30-2024 Hospital Note* Hospital Course - Aide Richards MD - 04/20/2024 1:09 PM EDT 39 y.o who is 31.2 wga who presents as a transfer from [facility] for maternal SVT with elevated troponin. Patient was admitted on 04/20. Prior to [facility] admission, patient presented to [facility] for SVT with spontaneous conversion to normal sinus rhyme without intervention upon arrival. Labs notable for increasing Troponin from 10.5 to 139 (peak). On [facility] arrival, patient presented with HR in the 90's, and downtrending troponins to 40. Baseline EKG NSR. ECHO demonstratednormal EF. Cardiology was consulted and per recommendations patient was started on Metoprolol 25mg BID to be continued through discharge and 2 week outpatient Holter monitoring. Patient was placed on telemetry with one episode of 1 min long SVT HR 208 that spontaneously resolved on HD#2. During admission, patient reported intermittent 4-5/10 headache that is consistent with her baseline GALLEGOS. Patient was stable for discharge home on HD#3. Holter monitoring placed on day of discharge. Growth US EFW 2175g 94%ile, AC 92%ile, BPP 8/8. Daily NST were reactive. Patient to continue care with OB provider as scheduled. Patient scheduled for outpatient MFM appointment in fellow's clinic on 05/05 and will schedule outpatient cardiology appointment. [facility] Work Phone: 1([phone]) 429-501209-30-2024 Miscellaneous Notes* Hospital Course - Aide Richards MD - 04/20/2024 1:09 PM EDT 39 y.o who is 31.2 wga who presents as a transfer from [facility] for maternal SVT with elevated troponin. Patient was admitted on 04/20. Prior to [facility] admission, patient presented to [facility] for SVT with spontaneous conversion to normal sinus rhyme without intervention upon arrival. Labs notable for increasing Troponin from 10.5 to 139 (peak). On [facility] arrival, patient presented with HR in the 90's, and downtrending troponins to 40. Baseline EKG NSR. ECHO demonstratednormal EF. Cardiology was consulted and per recommendations patient was started on Metoprolol 25mg BID to be continued through discharge and 2 week outpatient Holter monitoring. Patient was placed on telemetry with one episode of 1 min long SVT HR 208 that spontaneously resolved on HD#2. During admission, patient reported intermittent 4-5/10 headache that is consistent with her baseline GALLEGOS. Patient was stable for discharge home on HD#3. Holter monitoring placed on day of discharge. Growth US EFW 2175g 94%ile, AC 92%ile, BPP 8/8. Daily NST were reactive. Patient to continue care with OB provider as scheduled. Patient scheduled for outpatient MFM appointment in fellow's clinic on 05/05 and will schedule outpatient cardiology appointment. * Care Plan - Dede Nick RN - 04/20/2024 12:52 PM EDT The patient's goals for the shift include remains hds The clinical goals for the shift include pt will be free from cardiac symptoms throughout shift Over the shift, the patient did make progress toward the previously stated goals. Pt is dischargingtoday. * Care Plan - Nancy Best RN - 04/20/2024 7:52 AM EDT Problem: Pain - Adult Goal: Verbalizes/displays adequate comfort level or baseline comfort level Outcome: Progressing Problem: Safety - Adult Goal: Free from fall injury Outcome: Progressing Problem: Discharge Planning Goal: Discharge to home or other facility with appropriate resources Outcome: Progressing Problem: Chronic Conditions and Co-morbidities Goal: Patient's chronic conditions and co-morbidity symptoms are monitored and maintained or improved Outcome: Progressing The patient's goals for the shift include remains hds The clinical goals for the shift include pt will be free from cardiac symptoms throughout shift * Care Plan - Selma Sinclair RN - 04/19/2024 7:04 PM EDT The patient's goals for the shift include remains hds The clinical goals for the shift include bp and hr respond to medications Over the shift, the patient had hr in low 100s except when pt ambulated in hallway; pt not symptomatic when walking in bay or in her room; continue to monitor. * Care Plan - Tyron Ellison RN - 04/18/2024 7:32 PM EDT The patient's goals for the shift include remain hds The clinical goals for the shift include no s/s of heart palpitations. * Care Plan - Selma Sinclair RN - 04/18/2024 6:53 PM EDT The patient's goals for the shift include remain hds The clinical goals for the shift include no s/s of palpitations Over the shift, the patient no palpitations today; continue on fluids; hr 90- 120; continue to monitor. * Significant Event - Anna Figueroa MD - 04/18/2024 11:05 AM EDT NST for maternal SVT FHT: 120, mod cat, + accel, - decel Moosic: none Interpretation: reactive. Anna Figueroa MD * Care Plan - Tyron Ellison RN - 04/17/2024 11:39 PM EDT The patient's goals for the shift include The clinical goals for the shift include documented in this [facility]Un[facility] Work Phone: [phone]) 709-107209-30-2024 Plan of care note* Care Plan - Dede Nick RN - 04/20/2024 12:52 PM EDT The patient's goals for the shift include remains hds The clinical goals for the shift include pt will be free from cardiac symptoms throughout shift Over the shift, the patient did make progress toward the previously stated goals. Pt is dischargingtoday. [facility] Work Phone: [phone]) 584-670609-30-2024 History of Present illness Narrative* Sylvia Romero - 04/20/2024 12:23 PM EDT Ilda Viera is a 39 y.o. female on day 3 of admission presenting with SVT (supraventricular tachycardia) ([facility]). 04/20/24)(12:23) Transitional Care Coordination Progress Note: Patient discussed during interdisciplinary rounds. Team members present: ,BALTAZAR Plan per Medical/Surgical team: medically ready with ultrasound today and discharge following Discharge disposition: Home Status: inpatient Payer: Medicaid HMO Potential Barriers: none ADOD: 04/20/24 * Aide Richards MD - 04/20/2024 6:42 AM EDT .ANTEPARTUM PROGRESS NOTE 04/20/2024, 10:57 AM SUBJECTIVE: No acute events overnight. Patient has no complaints this morning. Denies episodes of SVT, heart palpitations, chest pain or SOB. Denies painful contractions, VB, LOF. Reports normal movement. OBJECTIVE: BP 121/81 Pulse 88 Temp 35.8 C (96.4 F) Resp 18 Ht 1.575 m (5' 2 ) Wt 106 kg (233 lb 0.4 oz) SpO2 95% BMI 42.62 kg/m Temp Min: 35.8 C (96.4 F) Max: 36.5 C (97.7 F) Pulse Min: 88 Max: 109 BP Min: 121/81 Max: 142/89 General: AAOx3, No acute distress Cardiovascular: Warm and well perfused Respiratory: Normal respiratory effort Abdominal: Soft, gravid, non-tender, no rebound or guarding, no palpable contractions NST: AM NST pending Labs: . Results for orders placed or performed during the hospital encounter of 04/17/24 (from the past 24 hour(s)) POCT GLUCOSE Result Value Ref Range POCT Glucose 99 74 - 99 mg/dL POCT GLUCOSE Result Value Ref Range POCT Glucose 97 74 - 99 mg/dL POCT GLUCOSE Result Value Ref Range POCT Glucose 84 74 - 99 mg/dL ASSESSMENT AND PLAN: Ilda Viera is a 39 y.o. at 31.2wga admitted as a [facility] for maternal SVT with elevated troponin. Maternal SVT Patient with longstanding hx of tachycardia. Noted to be in SVT with a HR of 245 at OSH. Spontaneously converted to NSR without intervention. Labs obtained at that time and notable for increasing troponin levels (10.5> 52>139). Subsequently transferred to [facility] for further evaluation. HR in 90s on admission Troponin of 58 on admission > 42 > 40 Baseline EKG NSR Currently on telemetry S/p cardiology consult. 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 Recommend Metoprolol 25mg BID. For 2week monitor at time of discharge S/p echo 04/17 with normal EF Patient with brief (approximately 1 minute) episode of tachycardia overnight to 208. Asx, unaware of episode. Appreciate additional cardiology recommendations Hypothyroidism On Synthroid 137mcg Sat-Sat, 274mg on Sundays - orders placed until Saturday, 04/21 TSH on admission 0.30, T4 17.2, T3 16, within goal for Chronic vs Gestational Hypertension Patient denies history of elevated BP. Denies h/o PEC in prior pregnancies. Limited records available; noted to have BP of 142/72 at 18wga. Patient states that BP has been elevated at 140 orgreater at multiple outpatient appointments. One mild range blood pressure while admitted HELLP labs neg, P:C 0.15 Previously with 5/10 GALLEGOS (at patient's baseline) on admission > now down to 2/10. Maternal Co-morbidities Bipolar Disorder- Continue Lamictal 300mg (continued) PCOS- on Metformin 1000mg (continued) BMI 43 status: Continue daily NSTs while inpatient. Pending BSUS with EFW of 1898g, 64.5%, AC 83%, transverse. Formal US this morning pending. Records unavailable, however, patient states that baby has been measuring approximately 3wks earlier. She is scheduled for repeat growth scan on , 04/23. Mac imaging order placed in case patient remains admitted on Saturday. BMZ deferred NICU consult deferred Routine: Patient signed written consent. Please see media tab. GBS: N/A TDAP: Not yet received but is interested Flu: Not yet received but is interested 1hr: wnl per patient report. However, is taking Metformin for PCOS. BG of 78 on admission. Fasting and pre-prandial fingersticks ordered. BCM: Undecided Dispo: plan for discharge home today pending cardiology recommendations Pt seen and discussed with MFM Attending, Dr. Parham. Aide Richards MD PGY3 MFM Pager [phone] Principal Problem: SVT (supraventricular tachycardia) ([facility]) Associated attestation - Zeina Parham MD - 04/20/2024 11:34 AM EDT I saw and evaluated the patient. I personally obtained the eaton and critical portions of the historyand physical exam or was physically present for eaton and critical portions performed by the resident/fellow. I reviewed the resident/fellow's documentation and discussed the patient with the resident/f lorena. I agree with the resident/fellow's medical decision making as documented in the note with the exception/addition of the following: Assuming care of the patient. Chart reviewed. No complaints this AM obstetric or otherwise. No SVT episodes overnight that the patient is aware of. Will await cardiology input but likely ok for discharge to home today. Desires to follow up with her primary OB at [facility], will need at least virtual follow up with MFM as well. Planning Holter monitor with discharge. status reassuring as evidenced by reactive NST. Zeina Parham MD Maternal Medicine Director of Intervention * Ghada Grimaldo MD - 04/19/2024 6:15 AM EDT Antepartum Progress Note Assessment/Plan Ilda Viera is a 39 y.o. at 31.1wga admitted as a [facility] for maternal SVT with elevated troponin. Maternal SVT Patient with longstanding hx of tachycardia. Noted to be in SVT with a HR of 245 at OSH. Spontaneously converted to NSR without intervention. Labs obtained at that time and notable for increasing troponin levels (10.5> 52>139). Subsequently transferred to [facility] for further evaluation. HR in 90s on admission Troponin of 58 on admission > 42 > 40 Baseline EKG NSR Currently on telemetry S/p cardiology consult. 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 Recommend Metoprolol 25mg BID. For 2week monitor at time of discharge S/p echo 04/17 with normal EF Patient with brief (approximately 1 minute) episode of tachycardia overnight to 208. Asx, unaware of episode. Appreciate additional cardiology recommendations Hypothyroidism On Synthroid 137mcg Sat-Sat, 274mg on Sundays - orders placed until 04/21 TSH on admission 0.30, T4 17.2, T3 16, within goal for Chronic vs Gestational Hypertension Patient denies history of elevated BP. Denies h/o PEC in prior pregnancies. Limited records available; noted to have BP of 142/72 at 18wga. Patient states that BP has been elevated at 140 orgreater at multiple outpatient appointments. Per RN report, had elevated BP to 148/91 at outside hospital prior to transfer. Normotensive since admission HELLP labs neg, P:C 0.15 Previously with 5/10 GALLEGOS (at patient's baseline) on admission > now down to /10. Maternal Co-morbidities Bipolar Disorder- Continue Lamictal 300mg (continued) PCOS- on Metformin 1000mg (continued) BMI 43 status: Reactive, reassuring NST on admission. Continue daily NSTs while inpatient. Pending BSUS with EFW of 1898g, 64.5%, AC 83%, transverse Records unavailable, however, patient states that baby has been measuring approximately 3wks earlier. She is scheduled for repeat growth scan on , 04/23. Mac imaging order placed in case patient remains admitted on Saturday. BMZ deferred NICU consult deferred Routine: Patient signed written consent. Please see media tab. GBS: N/A TDAP: Not yet received but is interested Flu: Not yet received but is interested 1hr: wnl per patient report. However, is taking Metformin for PCOS. BG of 78 on admission. Fasting and pre-prandial fingersticks ordered. BCM: Undecided To be seen & d/w MFM attending, Brandi Flores MD PGY-II, Obstetrics & Gynecology [facility] Assessment & Plan SVT (supraventricular tachycardia) ([facility]) Ilda Armijos Problems (from 04/18/24 to present) No problems associated with this episode. Subjective Overnight, patient had 1 episode of HR elevation to 208 that resolved after 1 minute. Sleeping and asymptomatic throughout episode. This AM, patient denies palpitations, CP, or SOB. Additionally denies contractions, VB, or LOF. Reports good FM. Objective Allergies: Nubain [nalbuphine] Last Vitals: Temp Pulse Resp BP MAP Pulse Ox 36.2 C (97.2 F) 97 18 125/84 98 96 % Vitals Min/Max Last 24 Hours: Temp Min: 36.2 C (97.2 F) Max: 36.4 C (97.5 F) Pulse Min: 85 Max: 104 Resp Min: 18 Max: 20 BP Min: 108/66 Max: 132/88 MAP (mmHg) Min: 85 Max: 103 Intake/Output: Intake/Output Summary (Last 24 hours) at 04/19/2024 0616 Last data filed at 04/18/2024 1800 Gross per 24 hour Intake 1720 ml Output 700 ml Net 1020 ml Physical Exam: General: no acute distress HEENT: normocephalic, atraumatic CV: warm and well perfused Lungs: breathing comfortably on room air Abdomen: Gravid, non-tender Extremities: moving all extremities spontaneously Neuro: awake and conversant Psych: appropriate mood and affect Lab Data: Results for orders placed or performed during the hospital encounter of 04/17/24 (from the past 24 hour(s)) Protein, urine, random Result Value Ref Range Total Protein, Urine Random 6 5 - 24 mg/dL Creatinine, Urine Random 39.8 20.0 - 320.0 mg/dL T. Protein/Creatinine Ratio 0.15 0.00 - 0.17 mg/mg Creat Troponin I, High Sensitivity Result Value Ref Range Troponin I, High Sensitivity (CMC) 40 (H) 0 - 34 ng/L Magnesium Result Value Ref Range Magnesium 1.63 1.60 - 2.40 mg/dL Basic metabolic panel Result Value Ref Range Glucose 90 74 - 99 mg/dL Sodium 138 136 - 145 mmol/L Potassium 3.8 3.5 - 5.3 mmol/L Chloride 105 98 - 107 mmol/L Bicarbonate 23 21 - 32 mmol/L Anion Gap 14 10 - 20 mmol/L Urea Nitrogen 5 (L) 6 - 23 mg/dL Creatinine 0.41 (L) 0.50 - 1.05 mg/dL eGFR >90 >60 mL/min/1.73m*2 Calcium 8.8 8.6 - 10.6 mg/dL TSH Result Value Ref Range Thyroid Stimulating Hormone 0.29 (L) 0.44 - 3.98 mIU/L Phosphorus Result Value Ref Range Phosphorus 4.4 2.5 - 4.9 mg/dL Free T4 Index Result Value Ref Range Thyroxine 17.2 (H) 4.5 - 11.1 ug/dL T3 Uptake 16 (L) 24 - 41 % Free Thyroxine Index 2.8 1.6 - 4.7 Triiodothyronine, Total Result Value Ref Range Triiodothyronine 220 (H) 60 - 200 ng/dL Transthoracic Echo (TTE) Complete Result Value Ref Range AV pk erica 1.86 m/s LVOT diam 2.20 cm MV E/A ratio 1.21 LA vol index A/L 16.0 ml/m2 Tricuspid annular plane systolic excursion 2.4 cm LV EF 68 % RV free wall pk S' 22.70 cm/s LVIDd 4.50 cm Aortic Valve Area by Continuity of Peak Velocity 2.68 cm2 AV pk grad 13.8 mmHg LV A4C EF 57.6 POCT GLUCOSE Result Value Ref Range POCT Glucose 94 74 - 99 mg/dL POCT GLUCOSE Result Value Ref Range POCT Glucose 78 74 - 99 mg/dL POCT GLUCOSE Result Value Ref Range POCT Glucose 89 74 - 99 mg/dL Associated attestation - Colin Metz MD - 04/19/2024 4:31 PM EDT I saw and evaluated the patient. I personally obtained the eaton and critical portions of the historyand physical exam or was physically present for eaton and critical portions performed by the resident/fellow. I reviewed the resident/fellow's documentation and discussed the patient with the resident/taye carrillo. I agree with the resident/fellow's medical decision making as documented in the note. This is a 39 y.o. at 31w1d admitted for maternal SVT. She was started on metoprolol per cardiology's recommendations but did have a brief episode of recurrent SVT overnight. It was asymptomatic and self-resolved. Cardiology recommends continuation of the current dose of the metoprolol. We will observe in the hospital for another night and consider discharge with a Holter monitor tomorrow. I reviewed the patient's NST, showing a baseline of 135/moderate variability/+accels/-decels and nocontractions. Colin Metz MD * Phyllis Germain, PharmD - 04/18/2024 12:20 PM EDT Pharmacy Admission Order Reconciliation Review Ilda Viera is a 39 y.o. female admitted for SVT (supraventricular tachycardia) ([facility]). Pharmacy reviewed the patient's unreconciled admission medications. Prior to admission medications that were reviewed and acted on by the pharmacist include: Doxylamine Ferrous sulfate Lamotrigine Levothyroxine Metformin Omeprazole These medications have been reconciled. Any other unreconcilied medications have been addressed and will be ordered or held by the patient's medical team. Medications addressed by the pharmacist may be added or changed by the patient's medical team at any time. Phyllis Germain PharmD Transitions of Care Pharmacist [facility] Please reach out via Secure Chat for questions * Dwayne Munguia RN - 04/18/2024 12:16 PM EDT 04/18/24 1216 Discharge Planning Living Arrangements Spouse/significant other Support Systems Spouse/significant other Assistance Needed none Type of Residence Private residence Number of Stairs to Enter Residence 3 Number of Stairs Within Residence 0 Do you have animals or pets at home? No Who is requesting discharge planning? Provider Home or Post Acute Services None Expected Discharge Disposition Home Does the patient need discharge transport arranged? No Financial Resource Strain How hard is it for you to pay for the very basics like food, housing, medical care, and heating? Not very Transportation Needs In the past 12 months, has lack of transportation kept you from medical appointments or from getting medications? no In the past 12 months, has lack of transportation kept you from meetings, work, or from getting things needed for daily living? No Patient Choice Provider Choice list and CMS website (https://medicare.gov/care-compare#search) for post-acute Quality and Resource Measure Data were provided and reviewed with: Patient Patient / Family choosing to utilize agency / facility established prior to hospitalization No Transitional Care Coordination Progress Note: Patient discussed during interdisciplinary rounds. Team members present: JANNET COPELAND MD Plan per Medical/Surgical team: Monitoring heart rhythm s Payor: Self Pay Discharge disposition: None Potential Barriers: None ADOD: 04-19-2024 Previous Home Care: None DME: None Pharmacy: [facility] Falls: None * Susan Cadet - 04/18/2024 10:16 AM EDT Pharmacy Medication History Review Ilda Viera is a 39 y.o. female admitted for SVT (supraventricular tachycardia) ([place]). Pharmacy reviewed the patient's pwyst-ci-mmojncmhb medications and allergies for accuracy. Medications ADDED: Doxylamine 25 mg Iron 325 mg Lamotrigine 150 mg Levothyroxine 137 mcg Metformin XR 1000 mg Omeprazole 20 mg vitamin Medications CHANGED: none Medications REMOVED: none The list below reflects the updated MID LEVEL GAME DESIGNER list. Prior to Admission Medications Prescriptions Last Dose Informant doxylamine (Unisom, doxylamine,) 25 mg tablet Self Sig: Take 1 tablet (25 mg) by mouth as needed at bedtime for sleep. ferrous sulfate, 325 mg ferrous sulfate, tablet Self Sig: Take 1 tablet (325 mg) by mouth once daily. lamoTRIgine (LaMICtal) 150 mg tablet Self Sig: Take 2 tablets (300 mg) by mouth once daily at bedtime. levothyroxine (Synthroid, Levoxyl) 137 mcg tablet Self Sig: Take 1 tablet (137 mcg) by mouth early in the morning.. Take 1 tablet (137 mcg) by mouth Saturday - Saturday. Take 2 tablets (274 mcg) by mouth on Saturday. metFORMIN, MOD, (Glumetza) 1,000 mg 24 hr tablet Self Sig: Take 1 tablet (1,000 mg) by mouth once daily. Do not crush, chew, or split. omeprazole (PriLOSEC) [address] capsule Self Sig: Take 1 capsule (20 mg) by mouth once daily in the morning. Take before meals. Do not crush or chew. no115/iron/folic acid ( 19 ORAL) Self Sig: Take 1 tablet by mouth once daily. Facility-Administered Medications: None The list below reflects the updated allergy list. Please review each documented allergy for additional clarification and justification. Allergies Reviewed by Susan Cadet on 04/18/2024 Severity Reactions Comments Nubain [nalbuphine] Not Specified Hallucinations Patient accepts M2B at discharge. Sources: Patient interview - good historian Chart review Maternal- Medicine note - 04/[address] Richards Additional Comments: none Susan Cadet PGY-1 Silo Operator 04/18/24 Secure Chat preferred If no response call [phone] or [employer] [facility] Work Phone: 1(361) 458-619509-30-2024 Hospital Discharge instructions* Discharge Instructions* Aide Richards MD - 04/20/2024 11:27 AM EDT .If you are experiencing -vaginal bleeding/spotting - painful contractions /cramping - big gush of fluid/leakage of fluid - decreased movement -chest pain, shortness of breath, increased heart rate Call you OB provider and go to L&D triage -You are scheduled for outpatient maternal - medicine appointment with Dr. Sandy at [facility] 05/05 at 2:30pm. You will be notified of this appointment. * Appointments* Dede Nick RN - 04/20/2024 11:48 AM EDT Follow up with Cardiology at [facility] holter monitor for 2 weeks starting 04/20/24 * Attachments The following attachments cannot be sent through Care Everywhere. * Supraventricular tachycardia (SVT) (I[place]ic) * Tdap (Tetanus, Diphtheria, Pertussis) Vaccine CDC Vaccine Information Statement (VIS) (I[place]ic) * Influenza Vaccine (Inactivated or Recombinant) CDC Vaccine Information Statement (VIS) ([place]ic) documented in [facility]Fire[facility] Work Phone: 1(965) 207-851009-30-2024 Plan of care note* Care Plan - Nancy Best RN - 04/20/2024 7:52 AM EDT Problem: Pain - Adult Goal: Verbalizes/displays adequate comfort level or baseline comfort level Outcome: Progressing Problem: Safety - Adult Goal: Free from fall injury Outcome: Progressing Problem: Discharge Planning Goal: Discharge to home or other facility with appropriate resources Outcome: Progressing Problem: Chronic Conditions and Co-morbidities Goal: Patient's chronic conditions and co-morbidity symptoms are monitored and maintained or improved Outcome: Progressing The patient's goals for the shift include remains hds The clinical goals for the shift include pt will be free from cardiac symptoms throughout shift [facility]09-29-2024 Plan of care note* Care Plan - Selma Sinclair RN - 04/19/2024 7:04 PM EDT The patient's goals for the shift include remains hds The clinical goals for the shift include bp and hr respond to medications Over the shift, the patient had hr in low 100s except when pt ambulated in hallway; pt not symptomatic when walking in bay or in her room; continue to monitor. [facility]09-28-2024 Plan of care note* Care Plan - Tyron Ellison RN - 04/18/2024 7:32 PM EDT The patient's goals for the shift include remain hds The clinical goals for the shift include no s/s of heart palpitations. [facility] Work Phone: [phone]) 941-390809-28-2024 Plan of care note* Care Plan - Selma Sinclair RN - 04/18/2024 6:53 PM EDT The patient's goals for the shift include remain hds The clinical goals for the shift include no s/s of palpitations Over the shift, the patient no palpitations today; continue on fluids; hr 90- 120; continue to monitor. [facility] Work Phone: 1(996) 684-275709-28-2024 Consult note* Dex Mcfadden MD - 04/18/2024 4:02 PM EDTAssociated Order(s): IP CONSULT TO CARDIOLOGY Cardiology Consult Note Reason for consult: SVT History Of Present Illness: Ilda Viera is a 39 y.o. female with a PMH of hypothyroidism, bipolar disorder, chronic anemia, gestational hypertension, currently 31 weeks who presented as a transfer from [place] for SVT. At bedside evaluation, patient reported that she has been experiencing recurrent elevated heart rate seen on her Apple Watch which will spontaneously resolve without any issues. She noted that in thepast week she has had recurrent tachycardia up to the 190s with associated palpitation and shortness of breath and was not resolving which led her to present to [place] for further management. She stated that earlier in her , she was seen by outpatient radar operator and underwent a 48-hour event monitor and echocardiogram which were unremarkable. She denies any history of syncope. Denies any family history of SCD or arrhythmias. Denies prior history of SVT before her . Past Cardiology Workup: EKG: Normal sinus rhythm Telemetry review: Normal sinus rhythm since her admission here with no evidence of SVT. Echo: pending Past Medical History: She has no past medical history on file. Past Surgical History: She has no past surgical history on file. Social History: She reports that she has never smoked. She has never used smokeless tobacco. She reports that she does not currently use alcohol. She reports that she does not currently use drugs. Family History: No family history on file. Allergies: Nubain [nalbuphine] ROS: 10 point review of systems including (Constitutional, Eyes, ENMT, Respiratory, Cardiac, Gastrointestinal, Neurological, Psychiatric, and Hematologic) was performed and is otherwise negative. Objective Data: Last Recorded Vitals: Vitals: 04/17/24 2324 04/18/24 0424 04/18/24 0757 04/18/24 1223 BP: 124/85 128/80 108/66 121/82 BP Location: Left arm Patient Position: Sitting Sitting Lying Sitting Pulse: 91 105 85 95 Resp: 18 18 18 18 Temp: 37 C (98.6 F) 36.4 C (97.5 F) 36.4 C (97.5 F) 36.4 C (97.5 F) TempSrc: Temporal SpO2: 96% 97% 97% 97% Weight: 106 kg (233 lb 0.4 oz) 106 kg (233 lb 0.4 oz) Height: 1.575 m (5' 2 ) Medical Gas Therapy: None (Room air) Weight Av kg (233 lb 0.4 oz) Min: 106 kg (233 lb 0.4 oz) Max: 106 kg (233 lb 0.4 oz) LABS: CMP: Results from last 7 days Lab Units 04/18/24 0936 04/18/24 0122 SODIUM mmol/L 138 138 POTASSIUM mmol/L 3.8 4.2 CHLORIDE mmol/L 105 105 CO2 mmol/L 23 23 ANION GAP mmol/L 14 14 BUN mg/dL 5* 7 CREATININE mg/dL 0.41* 0.40* EGFR mL/min/1.73m*2 >90 >90 MAGNESIUM mg/dL 1.63 -- ALBUMIN g/dL -- 3.5 ALT U/L -- 19 AST U/L -- 25 BILIRUBIN TOTAL mg/dL -- 0.3 CBC: Results from last 7 days Lab Units 04/18/24 0122 WBC AUTO x10*3/uL 7.9 HEMOGLOBIN g/dL 10.9* HEMATOCRIT % 33.9* PLATELETS AUTO x10*3/uL 248 MCV fL 90 COAG: ABO: ABO TYPE Date Value Ref Range Status 04/18/2024 O Final HEME/ENDO: Results from last 7 days Lab Units 04/18/24 0936 04/18/24 0122 TSH mIU/L 0.29* 0.30* CARDIAC: Results from last 7 days Lab Units 04/18/24 0936 04/18/24 0600 04/18/24 0122 TROPHSCMC ng/L 40* 42* 58* Last I/O: Intake/Output Summary (Last 24 hours) at 04/18/2024 1602 Last data filed at 04/18/2024 1300 Gross per 24 hour Intake 875 ml Output 700 ml Net 175 ml Net IO Since Admission: 175 mL [04/18/24 1602] Imaging Results: No results found. Inpatient Medications: Scheduled medications Medication Dose Route Frequency diph,pertuss(acel),tet vac (PF) 0.5 mL intramuscular During hospitalization influenza 0.5 mL intramuscular During hospitalization lamoTRIgine 300 mg oral Nightly levothyroxine 137 mcg oral Nightly [START ON 04/20/2024] levothyroxine 137 mcg oral Nightly [START ON 04/21/2024] levothyroxine 137 mcg oral Nightly [START ON 04/19/2024] levothyroxine 274 mcg oral Nightly magnesium sulfate 4 g intravenous Once metFORMIN (MOD) 1,000 mg oral Daily with evening meal metoprolol succinate XL 25 mg oral q24h perflutren lipid microspheres 0.5-10 mL of dilution intravenous Once in imaging polyethylene glycol 17 g oral Daily vitamin (iron-folic) 1 tablet oral Daily PRN medications Medication bisacodyl hydrALAZINE labetaloL lidocaine magnesium hydroxide metoclopramide Or metoclopramide NIFEdipine ondansetron Or ondansetron polyethylene glycol psyllium simethicone Continuous Medications Medication Dose Last Rate lactated Ringer's 125 mL/hr 125 mL/hr (04/18/24 0858) Outpatient Medications: Current Outpatient Medications Medication Instructions doxylamine (UNISOM (DOXYLAMINE)) 25 mg, oral, Nightly PRN ferrous sulfate (325 mg ferrous sulfate) 325 mg, oral, Daily lamoTRIgine (LAMICTAL) 300 mg, oral, Nightly levothyroxine (SYNTHROID, LEVOXYL) 137 mcg, oral, Daily, Take 1 tablet (137 mcg) by mouth Saturday - Saturday. Take 2 tablets (274 mcg) by mouth on Saturday. metFORMIN (MOD) (GLUMETZA) 1,000 mg, oral, Daily, Do not crush, chew, or split. omeprazole (PRILOSEC) 20 mg, oral, Daily before breakfast, Do not crush or chew. no115/iron/folic acid ( 19 ORAL) 1 tablet, oral, Daily Physical Exam: General: Patient is awake, alert, and oriented. Patient is in no acute distress. HEENT: Pupils equal and reactive. Normocephalic. Moist mucosa. Neck: No thyromegaly. Normal Jugular Venous Pressure. Cardiovascular: Regular rate and rhythm. Normal S1 and S2. No murmurs, rubs or gallops. Pulmonary: Clear to auscultation bilaterally. Abdomen: Lower Extremities: 2+ pedal pulses. No LE edema. Neurologic: Cranial nerves intact. No focal deficit. Skin: Skin warm and dry, normal skin turgor. Psychiatric: Normal affect. Assessment/Plan Ilda Viera is a 39 y.o. female with a PMH of hypothyroidism, bipolar disorder, anemia, gestational hypertension, currently 31 weeks who presented as a transfer from [place] for SVT. #SVT, likely AVNRT #Elevated troponin, 58-->42-->40 #Hypothyroidism, on synthroid #Chronic anemia #Gestational hypertension SVT was likely triggered due to physiological and hormonal associated with . Currently in NSR. Lab work significant for elevated thyroid hormones which could be concerning for hyperthyroidism, although this is in the setting of . -Recommend Metoprolol tartrate 25 mg BID -Follow up echocardiogram -Consider endocrinology consult to ensure appropriate Synthroid dosing. Code Status: Full Code Seen and discussed with attending, Dr. Couch. Dex Mcfadden MD General Sales And Marketing Specialist, PGY 5 Associated attestation - Hiren Couch MD - 04/18/2024 9:16 PM EDT I saw and evaluated the patient. I personally obtained the eaton and critical portions of the historyand physical exam or was physically present for eaton and critical portions performed by the resident/fellow. I reviewed the resident/fellow's documentation and discussed the patient with the resident/f lorena. 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 Echocardiogram 04/18/2024 shows preserved biventricular function. 2 week monitor at time of DC Hiren Couch MD Advanced Heart Failure/Transplant Cardiology Cardio-Oncology [facility] [place] [facility] Work Phone: [phone]) [phone] Consult note* Dex Mcfadden MD - 04/18/2024 4:02 PM EDTAssociated Order(s): IP CONSULT TO CARDIOLOGY Cardiology Consult Note Reason for consult: SVT History Of Present Illness: Ilda Viera is a 39 y.o. female with a PMH of hypothyroidism, bipolar disorder, chronic anemia, gestational hypertension, currently 31 weeks who presented as a transfer from [place] for SVT. At bedside evaluation, patient reported that she has been experiencing recurrent elevated heart rate seen on her Apple Watch which will spontaneously resolve without any issues. She noted that in thepast week she has had recurrent tachycardia up to the 190s with associated palpitation and shortness of breath and was not resolving which led her to present to [place] for further management. She stated that earlier in her , she was seen by outpatient radar operator and underwent a 48-hour event monitor and echocardiogram which were unremarkable. She denies any history of syncope. Denies any family history of SCD or arrhythmias. Denies prior history of SVT before her . Past Cardiology Workup: EKG: Normal sinus rhythm Telemetry review: Normal sinus rhythm since her admission here with no evidence of SVT. Echo: pending Past Medical History: She has no past medical history on file. Past Surgical History: She has no past surgical history on file. Social History: She reports that she has never smoked. She has never used smokeless tobacco. She reports that she does not currently use alcohol. She reports that she does not currently use drugs. Family History: No family history on file. Allergies: Nubain [nalbuphine] ROS: 10 point review of systems including (Constitutional, Eyes, ENMT, Respiratory, Cardiac, Gastrointestinal, Neurological, Psychiatric, and Hematologic) was performed and is otherwise negative. Objective Data: Last Recorded Vitals: Vitals: 04/17/24 2324 04/18/24 0424 04/18/24 0757 04/18/24 1223 BP: 124/85 128/80 108/66 121/82 BP Location: Left arm Patient Position: Sitting Sitting Lying Sitting Pulse: 91 105 85 95 Resp: 18 18 18 18 Temp: 37 C (98.6 F) 36.4 C (97.5 F) 36.4 C (97.5 F) 36.4 C (97.5 F) TempSrc: Temporal SpO2: 96% 97% 97% 97% Weight: 106 kg (233 lb 0.4 oz) 106 kg (233 lb 0.4 oz) Height: 1.575 m (5' 2 ) Medical Gas Therapy: None (Room air) Weight Av kg (233 lb 0.4 oz) Min: 106 kg (233 lb 0.4 oz) Max: 106 kg (233 lb 0.4 oz) LABS: CMP: Results from last 7 days Lab Units 04/18/24 0936 04/18/24 0122 SODIUM mmol/L 138 138 POTASSIUM mmol/L 3.8 4.2 CHLORIDE mmol/L 105 105 CO2 mmol/L 23 23 ANION GAP mmol/L 14 14 BUN mg/dL 5* 7 CREATININE mg/dL 0.41* 0.40* EGFR mL/min/1.73m*2 >90 >90 MAGNESIUM mg/dL 1.63 -- ALBUMIN g/dL -- 3.5 ALT U/L -- 19 AST U/L -- 25 BILIRUBIN TOTAL mg/dL -- 0.3 CBC: Results from last 7 days Lab Units 04/18/24 0122 WBC AUTO x10*3/uL 7.9 HEMOGLOBIN g/dL 10.9* HEMATOCRIT % 33.9* PLATELETS AUTO x10*3/uL 248 MCV fL 90 COAG: ABO: ABO TYPE Date Value Ref Range Status 04/18/2024 O Final HEME/ENDO: Results from last 7 days Lab Units 04/18/24 0936 04/18/24 0122 TSH mIU/L 0.29* 0.30* CARDIAC: Results from last 7 days Lab Units 04/18/24 0936 04/18/24 0600 04/18/24 0122 TROPHSCMC ng/L 40* 42* 58* Last I/O: Intake/Output Summary (Last 24 hours) at 04/18/2024 1602 Last data filed at 04/18/2024 1300 Gross per 24 hour Intake 875 ml Output 700 ml Net 175 ml Net IO Since Admission: 175 mL [04/18/24 1602] Imaging Results: No results found. Inpatient Medications: Scheduled medications Medication Dose Route Frequency diph,pertuss(acel),tet vac (PF) 0.5 mL intramuscular During hospitalization influenza 0.5 mL intramuscular During hospitalization lamoTRIgine 300 mg oral Nightly levothyroxine 137 mcg oral Nightly [START ON 04/20/2024] levothyroxine 137 mcg oral Nightly [START ON 04/21/2024] levothyroxine 137 mcg oral Nightly [START ON 04/19/2024] levothyroxine 274 mcg oral Nightly magnesium sulfate 4 g intravenous Once metFORMIN (MOD) 1,000 mg oral Daily with evening meal metoprolol succinate XL 25 mg oral q24h perflutren lipid microspheres 0.5-10 mL of dilution intravenous Once in imaging polyethylene glycol 17 g oral Daily vitamin (iron-folic) 1 tablet oral Daily PRN medications Medication bisacodyl hydrALAZINE labetaloL lidocaine magnesium hydroxide metoclopramide Or metoclopramide NIFEdipine ondansetron Or ondansetron polyethylene glycol psyllium simethicone Continuous Medications Medication Dose Last Rate lactated Ringer's 125 mL/hr 125 mL/hr (04/18/24 0858) Outpatient Medications: Current Outpatient Medications Medication Instructions doxylamine (UNISOM (DOXYLAMINE)) 25 mg, oral, Nightly PRN ferrous sulfate (325 mg ferrous sulfate) 325 mg, oral, Daily lamoTRIgine (LAMICTAL) 300 mg, oral, Nightly levothyroxine (SYNTHROID, LEVOXYL) 137 mcg, oral, Daily, Take 1 tablet (137 mcg) by mouth Saturday - Saturday. Take 2 tablets (274 mcg) by mouth on Saturday. metFORMIN (MOD) (GLUMETZA) 1,000 mg, oral, Daily, Do not crush, chew, or split. omeprazole (PRILOSEC) 20 mg, oral, Daily before breakfast, Do not crush or chew. no115/iron/folic acid ( 19 ORAL) 1 tablet, oral, Daily Physical Exam: General: Patient is awake, alert, and oriented. Patient is in no acute distress. HEENT: Pupils equal and reactive. Normocephalic. Moist mucosa. Neck: No thyromegaly. Normal Jugular Venous Pressure. Cardiovascular: Regular rate and rhythm. Normal S1 and S2. No murmurs, rubs or gallops. Pulmonary: Clear to auscultation bilaterally. Abdomen: Lower Extremities: 2+ pedal pulses. No LE edema. Neurologic: Cranial nerves intact. No focal deficit. Skin: Skin warm and dry, normal skin turgor. Psychiatric: Normal affect. Assessment/Plan Ilda Viera is a 39 y.o. female with a PMH of hypothyroidism, bipolar disorder, anemia, gestational hypertension, currently 31 weeks who presented as a transfer from [place] for SVT. #SVT, likely AVNRT #Elevated troponin, 58-->42-->40 #Hypothyroidism, on synthroid #Chronic anemia #Gestational hypertension SVT was likely triggered due to physiological and hormonal associated with . Currently in NSR. Lab work significant for elevated thyroid hormones which could be concerning for hyperthyroidism, although this is in the setting of . -Recommend Metoprolol tartrate 25 mg BID -Follow up echocardiogram -Consider endocrinology consult to ensure appropriate Synthroid dosing. Code Status: Full Code Seen and discussed with attending, Dr. Couch. Dex Mcfadden MD General Sales And Marketing Specialist, PGY 5 Associated attestation - Hiren Couch MD - 04/18/2024 9:16 PM EDT I saw and evaluated the patient. I personally obtained the eaton and critical portions of the historyand physical exam or was physically present for eaton and critical portions performed by the resident/fellow. I reviewed the resident/fellow's documentation and discussed the patient with the resident/f lorena. 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 Echocardiogram 04/18/2024 shows preserved biventricular function. 2 week monitor at time of DC Hiren Couch MD Advanced Heart Failure/Transplant Cardiology Cardio-Oncology [facility] documented in this [facility] Work Phone: [phone]) 509-478009-28-2024 History and physical note* Aide Richards MD - 04/18/2024 3:44 PM EDT Maternal Medicine H&P HPI: Ilda Viera is a 39yo at 31.0wga dated by 6wk US, presenting as a KAPIL from [facility] for maternal SVT with elevated troponin. Patient initially presented to [facility] on 04/17 for SVT and was noted to spontaneously convert to NSR without intervention upon arrival. Patient reports longstanding history of chronic tachycardia. She does not regularly follow with a radar operator. Believes she last saw cardiology in 2017 when she was started on Propranolol for tachycardia but was subsequently taken off following delivery. Patient reports intermittent episodes of SVT (heart palpitations, CP that radiates to neck) throughout this past week that has lasted approximately 1-2 minutes with spontaneous resolution. On 04/16, patient had an episode in which her HR was detected as 198 on her Apple Watch, but again normalized after a couple of minutes. On the morning of 04/17, patient states she had another SVT episode;HR was undetectable on Apple Watch. She then presented to [facility] where she was noted to have a HR of 245, but converted to normal sinus rhythm prior to intervention. During admission at [facility], labs were notable for increasing troponin from 10.5 to 139. She was subsequently transferred to [facility] for further cardiac evaluation and high pressure boiler operator services. Patient currently with 5/10 GALLEGOS. States she always has a headache, and this one is not different from prior. She denies blurry vision or RUQ pain. She additionally denies contractions, VB, or LOF. Reports good FM. AM Update: Patient with GALLEGOS of now 4/10. Has gotten very little sleep overnight (about 1h). Denies CP, palpitation, or SOB. Denies ctx, VB, or LOF. Reports good FM. Notables - Hypothyroidism- on Synthroid 137mcg Sat-Sat, 274mg on Sundays - Bipolar Disorder- on Lamictal 300mg - PCOS- on Metformin 1000mg daily - Anemia- on PO iron - cHTN vs gHTN- dx'd on chart review and elevated BP at OSH Ilda Viera Problems (from 04/18/24 to present) No problems associated with this episode. Obstetrical History OB History 1 Para Term AB Living SAB IAB Ectopic Multiple Live Births Past Medical History No past medical history on file. Past Surgical History No past surgical history on file. Social History Social History Socioeconomic History Marital status: Not on file Spouse name: Not on file Number of children: Not on file Years of education: Not on file Highest education level: Not on file Occupational History Not on file Tobacco Use Smoking status: Never Smokeless tobacco: Never Vaping Use Vaping status: Never Used Substance and Sexual Activity Alcohol use: Not Currently Drug use: Not Currently Sexual activity: Not on file Other Topics Concern Not on file Social History Narrative Not on file Social Determinants of Health Financial Resource Strain: Low Risk (04/18/2024) Overall Financial Resource Strain (CARDIA) Difficulty of Paying Living Expenses: Not very hard Food Insecurity: Not on file Transportation Needs: No Transportation Needs (04/18/2024) PRAPARE - Transportation Lack of Transportation (Medical): No Lack of Transportation (Non-Medical): No Physical Activity: Not on file Stress: Not on file Social Connections: Not on file Intimate Partner Violence: Not on file Allergies Allergies Allergen Reactions Nubain [Nalbuphine] Hallucinations Medications Medications Prior to Admission Medication Sig Dispense Refill Last Dose doxylamine (Unisom, doxylamine,) 25 mg tablet Take 1 tablet (25 mg) by mouth as needed at bedtime for sleep. ferrous sulfate, 325 mg ferrous sulfate, tablet Take 1 tablet (325 mg) by mouth once daily. lamoTRIgine (LaMICtal) 150 mg tablet Take 2 tablets (300 mg) by mouth once daily at bedtime. levothyroxine (Synthroid, Levoxyl) 137 mcg tablet Take 1 tablet (137 mcg) by mouth early in the morning.. Take 1 tablet (137 mcg) by mouth Saturday - Saturday. Take 2 tablets (274 mcg) by mouth on Saturday. metFORMIN, MOD, (Glumetza) 1,000 mg 24 hr tablet Take 1 tablet (1,000 mg) by mouth once daily. Do not crush, chew, or split. omeprazole (PriLOSEC) [address] capsule Take 1 capsule (20 mg) by mouth once daily in the morning. Take before meals. Do not crush or chew. no115/iron/folic acid ( 19 ORAL) Take 1 tablet by mouth once daily. OBJECTIVE: BP 121/82 (Patient Position: Sitting) Pulse 95 Temp 36.4 C (97.5 F) Resp 18 Ht 1.575 m (5' 2 ) Wt 106 kg (233 lb 0.4 oz) SpO2 97% BMI 42.62 kg/m Temp Min: 36.4 C (97.5 F) Max: 37 C (98.6 F) Pulse Min: 85 Max: 105 BP Min: 108/66 Max: 128/80 Physical exam: General: AAOx3, No acute distress Cardiovascular: Warm and well perfused Respiratory: Normal respiratory effort Abdominal: Soft, gravid, non-tender, no rebound or guarding, no palpable contractions Back: No CVA tenderness Extremities: Warm, well perfused, 1+ edema, no calf tenderness Pelvic: SSE - deferred SVE - deferred NST: Baseline 125, + accelerations , - decelerations, mod variability Moosic: Quiet Labs: . Results for orders placed or performed during the hospital encounter of 04/17/24 (from the past 24 hour(s)) Comprehensive Metabolic Panel Result Value Ref Range Glucose 86 74 - 99 mg/dL Sodium 138 136 - 145 mmol/L Potassium 4.2 3.5 - 5.3 mmol/L Chloride 105 98 - 107 mmol/L Bicarbonate 23 21 - 32 mmol/L Anion Gap 14 10 - 20 mmol/L Urea Nitrogen 7 6 - 23 mg/dL Creatinine 0.40 (L) 0.50 - 1.05 mg/dL eGFR >90 >60 mL/min/1.73m*2 Calcium 9.1 8.6 - 10.6 mg/dL Albumin 3.5 3.4 - 5.0 g/dL Alkaline Phosphatase 146 (H) 33 - 110 U/L Total Protein 6.9 6.4 - 8.2 g/dL AST 25 9 - 39 U/L Bilirubin, Total 0.3 0.0 - 1.2 mg/dL ALT 19 7 - 45 U/L CBC Result Value Ref Range WBC 7.9 4.4 - 11.3 x10*3/uL nRBC 0.0 0.0 - 0.0 /100 WBCs RBC 3.77 (L) 4.00 - 5.20 x10*6/uL Hemoglobin 10.9 (L) 12.0 - 16.0 g/dL Hematocrit 33.9 (L) 36.0 - 46.0 % MCV 90 80 - 100 fL MCH 28.9 26.0 - 34.0 pg MCHC 32.2 32.0 - 36.0 g/dL RDW 14.7 (H) 11.5 - 14.5 % Platelets 248 150 - 450 x10*3/uL Troponin I, High Sensitivity Result Value Ref Range Troponin I, High Sensitivity (CMC) 58 (H) 0 - 34 ng/L TSH Result Value Ref Range Thyroid Stimulating Hormone 0.30 (L) 0.44 - 3.98 mIU/L POCT GLUCOSE Result Value Ref Range POCT Glucose 78 74 - 99 mg/dL Type And Screen Result Value Ref Range ABO TYPE O Rh TYPE POS ANTIBODY SCREEN NEG Troponin I, High Sensitivity Result Value Ref Range Troponin I, High Sensitivity (CMC) 42 (H) 0 - 34 ng/L Glucose, fasting Result Value Ref Range Glucose, Fasting 76 74 - 99 mg/dL Protein, urine, random Result Value Ref Range Total Protein, Urine Random 6 5 - 24 mg/dL Creatinine, Urine Random 39.8 20.0 - 320.0 mg/dL T. Protein/Creatinine Ratio 0.15 0.00 - 0.17 mg/mg Creat Troponin I, High Sensitivity Result Value Ref Range Troponin I, High Sensitivity (CMC) 40 (H) 0 - 34 ng/L Magnesium Result Value Ref Range Magnesium 1.63 1.60 - 2.40 mg/dL Basic metabolic panel Result Value Ref Range Glucose 90 74 - 99 mg/dL Sodium 138 136 - 145 mmol/L Potassium 3.8 3.5 - 5.3 mmol/L Chloride 105 98 - 107 mmol/L Bicarbonate 23 21 - 32 mmol/L Anion Gap 14 10 - 20 mmol/L Urea Nitrogen 5 (L) 6 - 23 mg/dL Creatinine 0.41 (L) 0.50 - 1.05 mg/dL eGFR >90 >60 mL/min/1.73m*2 Calcium 8.8 8.6 - 10.6 mg/dL TSH Result Value Ref Range Thyroid Stimulating Hormone 0.29 (L) 0.44 - 3.98 mIU/L Free T4 Index Result Value Ref Range Thyroxine 17.2 (H) 4.5 - 11.1 ug/dL T3 Uptake 16 (L) 24 - 41 % Free Thyroxine Index 2.8 1.6 - 4.7 Triiodothyronine, Total Result Value Ref Range Triiodothyronine 220 (H) 60 - 200 ng/dL Transthoracic Echo (TTE) Complete Result Value Ref Range BSA 2.15 m2 POCT GLUCOSE Result Value Ref Range POCT Glucose 94 74 - 99 mg/dL ASSESSMENT AND PLAN: Ilda Viera is a 39yo at 31.0wga dated by 6wk US, presenting as a KAPIL from [facility] for maternal SVT with elevated troponin. Maternal SVT Patient with longstanding hx of tachycardia. Noted to be in SVT with a HR of 245 at OSH. Spontaneously converted to NSR without intervention. Labs obtained at that time and notable for increasing troponin levels (10.5> 52>139). Subsequently transferred to [facility] for further evaluation. HR in 90s on admission Troponin of 58 on admission-> 42 this morning . Baseline EKG pending Currently on telemetry Cardiology consult placed For echo. Order placed Per plan in place by cardiology, will start Metoprolol 25mg daily (ordered to start 04/18, 0600) Hypothyroidism On Synthroid 137mcg Sat-Sat, 274mg on Sundays - orders placed until Saturday, 04/21 TSH on admission 0.30 Chronic vs Gestational Hypertension Patient denies history of elevated BP. Denies h/o PEC in prior pregnancies. Limited records available; noted to have BP of 142/72 at 18wga. Patient states that BP has been elevated at 140 orgreater at multiple outpatient appointments. Per RN report, had elevated BP to 148/91 at outside hospital prior to transfer. Normotensive since admission HELLP labs neg, P:C pending Currently with 5/10 GALLEGOS (at patient's baseline) > s/p Tylenol at OSH. Given Benadryl, Flexeril, and Reglan on admission > improved to 4/10. Continue to monitor. Encouraged sleep, if possible. Will repeat txt with Tylenol/Benadryl/Reglan. Consider Neuro consult and head imaging if no improvement. Maternal Co-morbidities Bipolar Disorder- Continue Lamictal 150mg (continued) PCOS- on Metformin 1000mg (continued) BMI 43 status: Reactive, reassuring NST on admission Continue daily NSTs while inpatient BSUS with EFW of 1898g, 64.5%, AC 83%, transverse Records unavailable, however, patient states that baby has been measuring approximately 3wks earlier. She is scheduled for repeat growth scan on , 04/23. BMZ deferred NICU consult deferred Routine: Patient signed written consent. Please see media tab. GBS: N/A TDAP: Not yet received but is interested Flu: Not yet received but is interested 1hr: wnl per patient report. However, is taking Metformin for PCOS. BG of 78 on admission. Fasting and pre-prandial fingersticks ordered. BCM: Undecided Dispo: For continued inpatient observation. Pt to be seen and discussed with MFM Attending, . Brandi Grimaldo MD, PGY2 PGY-II, Obstetrics & Gynecology [facility] Principal Problem: SVT (supraventricular tachycardia) ([facility]) Associated attestation - Colin Metz MD - 04/18/2024 4:17 PM EDT I saw and evaluated the patient. I personally obtained the eaton and critical portions of the historyand physical exam or was physically present for eaton and critical portions performed by the resident/fellow. I reviewed the resident/fellow's documentation and discussed the patient with the resident/taye carrillo. I agree with the resident/fellow's medical decision making as documented in the note. This is a 39 y.o. transferred from [facility] ER for confirmed SVT that spontaneously converted to NSR. Troponins were increasing after the event but have been decreasing since this admission. She was transferred for proximity to OB and cardiology services. She is without cardiopulmonary or obstetric complaint today. An echocardiogram has been performed but not interpreted yet. Cardiology plans to change the patient's metoprolol dose and recommend monitoring her overnight. She remainson telemetry. We discussed that maternal arrhythmias have the potential to worsen with . Uncontrolled SVT does pose maternal and risk, justifying treatment of uncontrolled/symptomatic SVT. The first-line treatment for SVT consists of vagal maneuvers (carotid massage and/or Valsalva). Unresponsive SVT can be treated with adenosine to terminate acute SVT episodes. If hemodynamically unstable, synchronized cardioversion is considered acceptable treatment in the setting of contraindications to medication or SVT unresponsive to medication. Alternative therapies from most to least preferred also include metoprolol/propranolol, verapamil, procainamide, and amiodarone. Once the patient is discharged, an outpatient MFM consult can be placed. Delivery location will be determined based on third trimester disease control/response to treatment. Delivery at a facility with MFM and cardiology services may be indicated based on the patient's functional status and symptom burden - she is planning to [facility] at [facility], [facility] Of note, the patient has hypothyroidism on Synthroid. She has been on this dosing for about three months now. Her thyroid labs today show that she is very mildly overcorrected to hyperthyroidism (with accounting for reference ranges). This is generally preferred when compared to hypothyroidism, and I do not think her current thyroid status is placing her at increased risk for arrhythmias. We will therefore keep her dosing the same. She should continue monthly thyroid labs. 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 Colin Metz MD [facility] Work Phone: [phone]) [phone] History and physical note* Aide Richards MD - 04/18/2024 3:44 PM EDT Maternal Medicine H&P HPI: Ilda Viera is a 39yo at 31.0wga dated by 6wk US, presenting as a KAPIL from [facility] for maternal SVT with elevated troponin. Patient initially presented to [facility] on 04/17 for SVT and was noted to spontaneously convert to NSR without intervention upon arrival. Patient reports longstanding history of chronic tachycardia. She does not regularly follow with a radar operator. Believes she last saw cardiology in 2017 when she was started on Propranolol for tachycardia but was subsequently taken off following delivery. Patient reports intermittent episodes of SVT (heart palpitations, CP that radiates to neck) throughout this past week that has lasted approximately 1-2 minutes with spontaneous resolution. On 04/16, patient had an episode in which her HR was detected as 198 on her Apple Watch, but again normalized after a couple of minutes. On the morning of 04/17, patient states she had another SVT episode;HR was undetectable on Apple Watch. She then presented to [facility] where she was noted to have a HR of 245, but converted to normal sinus rhythm prior to intervention. During admission at [facility], labs were notable for increasing troponin from 10.5 to 139. She was subsequently transferred to [facility] for further cardiac evaluation and high pressure boiler operator services. Patient currently with 5/10 GALLEGOS. States she always has a headache, and this one is not different from prior. She denies blurry vision or RUQ pain. She additionally denies contractions, VB, or LOF. Reports good FM. AM Update: Patient with GALLEGOS of now 10/29. Has gotten very little sleep overnight (about 1h). Denies CP, palpitation, or SOB. Denies ctx, VB, or LOF. Reports good FM. Notables - Hypothyroidism- on Synthroid 137mcg Sat-Sat, 274mg on Sundays - Bipolar Disorder- on Lamictal 300mg - PCOS- on Metformin 1000mg daily - Anemia- on PO iron - cHTN vs gHTN- dx'd on chart review and elevated BP at OSH Ilda Viera Problems (from 04/18/24 to present) No problems associated with this episode. Obstetrical History OB History 1 Para Term AB Living SAB IAB Ectopic Multiple Live Births Past Medical History No past medical history on file. Past Surgical History No past surgical history on file. Social History Social History Socioeconomic History Marital status: Not on file Spouse name: Not on file Number of children: Not on file Years of education: Not on file Highest education level: Not on file Occupational History Not on file Tobacco Use Smoking status: Never Smokeless tobacco: Never Vaping Use Vaping status: Never Used Substance and Sexual Activity Alcohol use: Not Currently Drug use: Not Currently Sexual activity: Not on file Other Topics Concern Not on file Social History Narrative Not on file Social Determinants of Health Financial Resource Strain: Low Risk (04/18/2024) Overall Financial Resource Strain (CARDIA) Difficulty of Paying Living Expenses: Not very hard Food Insecurity: Not on file Transportation Needs: No Transportation Needs (04/18/2024) PRAPARE - Transportation Lack of Transportation (Medical): No Lack of Transportation (Non-Medical): No Physical Activity: Not on file Stress: Not on file Social Connections: Not on file Intimate Partner Violence: Not on file Allergies Allergies Allergen Reactions Nubain [Nalbuphine] Hallucinations Medications Medications Prior to Admission Medication Sig Dispense Refill Last Dose doxylamine (Unisom, doxylamine,) 25 mg tablet Take 1 tablet (25 mg) by mouth as needed at bedtime for sleep. ferrous sulfate, 325 mg ferrous sulfate, tablet Take 1 tablet (325 mg) by mouth once daily. lamoTRIgine (LaMICtal) 150 mg tablet Take 2 tablets (300 mg) by mouth once daily at bedtime. levothyroxine (Synthroid, Levoxyl) 137 mcg tablet Take 1 tablet (137 mcg) by mouth early in the morning.. Take 1 tablet (137 mcg) by mouth Saturday - Saturday. Take 2 tablets (274 mcg) by mouth on Saturday. metFORMIN, MOD, (Glumetza) 1,000 mg 24 hr tablet Take 1 tablet (1,000 mg) by mouth once daily. Do not crush, chew, or split. omeprazole (PriLOSEC) [address] capsule Take 1 capsule (20 mg) by mouth once daily in the morning. Take before meals. Do not crush or chew. no115/iron/folic acid ( 19 ORAL) Take 1 tablet by mouth once daily. OBJECTIVE: BP 121/82 (Patient Position: Sitting) Pulse 95 Temp 36.4 C (97.5 F) Resp 18 Ht 1.575 m (5' 2 ) Wt 106 kg (233 lb 0.4 oz) SpO2 97% BMI 42.62 kg/m Temp Min: 36.4 C (97.5 F) Max: 37 C (98.6 F) Pulse Min: 85 Max: 105 BP Min: 108/66 Max: 128/80 Physical exam: General: AAOx3, No acute distress Cardiovascular: Warm and well perfused Respiratory: Normal respiratory effort Abdominal: Soft, gravid, non-tender, no rebound or guarding, no palpable contractions Back: No CVA tenderness Extremities: Warm, well perfused, 1+ edema, no calf tenderness Pelvic: SSE - deferred SVE - deferred NST: Baseline 125, + accelerations , - decelerations, mod variability Moosic: Quiet Labs: . Results for orders placed or performed during the hospital encounter of 04/17/24 (from the past 24 hour(s)) Comprehensive Metabolic Panel Result Value Ref Range Glucose 86 74 - 99 mg/dL Sodium 138 136 - 145 mmol/L Potassium 4.2 3.5 - 5.3 mmol/L Chloride 105 98 - 107 mmol/L Bicarbonate 23 21 - 32 mmol/L Anion Gap 14 10 - 20 mmol/L Urea Nitrogen 7 6 - 23 mg/dL Creatinine 0.40 (L) 0.50 - 1.05 mg/dL eGFR >90 >60 mL/min/1.73m*2 Calcium 9.1 8.6 - 10.6 mg/dL Albumin 3.5 3.4 - 5.0 g/dL Alkaline Phosphatase 146 (H) 33 - 110 U/L Total Protein 6.9 6.4 - 8.2 g/dL AST 25 9 - 39 U/L Bilirubin, Total 0.3 0.0 - 1.2 mg/dL ALT 19 7 - 45 U/L CBC Result Value Ref Range WBC 7.9 4.4 - 11.3 x10*3/uL nRBC 0.0 0.0 - 0.0 /100 WBCs RBC 3.77 (L) 4.00 - 5.20 x10*6/uL Hemoglobin 10.9 (L) 12.0 - 16.0 g/dL Hematocrit 33.9 (L) 36.0 - 46.0 % MCV 90 80 - 100 fL MCH 28.9 26.0 - 34.0 pg MCHC 32.2 32.0 - 36.0 g/dL RDW 14.7 (H) 11.5 - 14.5 % Platelets 248 150 - 450 x10*3/uL Troponin I, High Sensitivity Result Value Ref Range Troponin I, High Sensitivity (CMC) 58 (H) 0 - 34 ng/L TSH Result Value Ref Range Thyroid Stimulating Hormone 0.30 (L) 0.44 - 3.98 mIU/L POCT GLUCOSE Result Value Ref Range POCT Glucose 78 74 - 99 mg/dL Type And Screen Result Value Ref Range ABO TYPE O Rh TYPE POS ANTIBODY SCREEN NEG Troponin I, High Sensitivity Result Value Ref Range Troponin I, High Sensitivity (CMC) 42 (H) 0 - 34 ng/L Glucose, fasting Result Value Ref Range Glucose, Fasting 76 74 - 99 mg/dL Protein, urine, random Result Value Ref Range Total Protein, Urine Random 6 5 - 24 mg/dL Creatinine, Urine Random 39.8 20.0 - 320.0 mg/dL T. Protein/Creatinine Ratio 0.15 0.00 - 0.17 mg/mg Creat Troponin I, High Sensitivity Result Value Ref Range Troponin I, High Sensitivity (CMC) 40 (H) 0 - 34 ng/L Magnesium Result Value Ref Range Magnesium 1.63 1.60 - 2.40 mg/dL Basic metabolic panel Result Value Ref Range Glucose 90 74 - 99 mg/dL Sodium 138 136 - 145 mmol/L Potassium 3.8 3.5 - 5.3 mmol/L Chloride 105 98 - 107 mmol/L Bicarbonate 23 21 - 32 mmol/L Anion Gap 14 10 - 20 mmol/L Urea Nitrogen 5 (L) 6 - 23 mg/dL Creatinine 0.41 (L) 0.50 - 1.05 mg/dL eGFR >90 >60 mL/min/1.73m*2 Calcium 8.8 8.6 - 10.6 mg/dL TSH Result Value Ref Range Thyroid Stimulating Hormone 0.29 (L) 0.44 - 3.98 mIU/L Free T4 Index Result Value Ref Range Thyroxine 17.2 (H) 4.5 - 11.1 ug/dL T3 Uptake 16 (L) 24 - 41 % Free Thyroxine Index 2.8 1.6 - 4.7 Triiodothyronine, Total Result Value Ref Range Triiodothyronine 220 (H) 60 - 200 ng/dL Transthoracic Echo (TTE) Complete Result Value Ref Range BSA 2.15 m2 POCT GLUCOSE Result Value Ref Range POCT Glucose 94 74 - 99 mg/dL ASSESSMENT AND PLAN: Ilda Viera is a 39yo at 31.0wga dated by 6wk US, presenting as a KAPIL from [facility] for maternal SVT with elevated troponin. Maternal SVT Patient with longstanding hx of tachycardia. Noted to be in SVT with a HR of 245 at OSH. Spontaneously converted to NSR without intervention. Labs obtained at that time and notable for increasing troponin levels (10.5> 52>139). Subsequently transferred to [facility] for further evaluation. HR in 90s on admission Troponin of 58 on admission-> 42 this morning . Baseline EKG pending Currently on telemetry Cardiology consult placed For echo. Order placed Per plan in place by cardiology, will start Metoprolol 25mg daily (ordered to start 04/18, 0600) Hypothyroidism On Synthroid 137mcg Sat-Sat, 274mg on Sundays - orders placed until Saturday, 04/21 TSH on admission 0.30 Chronic vs Gestational Hypertension Patient denies history of elevated BP. Denies h/o PEC in prior pregnancies. Limited records available; noted to have BP of 142/72 at 18wga. Patient states that BP has been elevated at 140 orgreater at multiple outpatient appointments. Per RN report, had elevated BP to 148/91 at outside hospital prior to transfer. Normotensive since admission HELLP labs neg, P:C pending Currently with 5/10 GALLEGOS (at patient's baseline) > s/p Tylenol at OSH. Given Benadryl, Flexeril, and Reglan on admission > improved to 4/10. Continue to monitor. Encouraged sleep, if possible. Will repeat txt with Tylenol/Benadryl/Reglan. Consider Neuro consult and head imaging if no improvement. Maternal Co-morbidities Bipolar Disorder- Continue Lamictal 150mg (continued) PCOS- on Metformin 1000mg (continued) BMI 43 status: Reactive, reassuring NST on admission Continue daily NSTs while inpatient BSUS with EFW of 1898g, 64.5%, AC 83%, transverse Records unavailable, however, patient states that baby has been measuring approximately 3wks earlier. She is scheduled for repeat growth scan on , 04/23. BMZ deferred NICU consult deferred Routine: Patient signed written consent. Please see media tab. GBS: N/A TDAP: Not yet received but is interested Flu: Not yet received but is interested 1hr: wnl per patient report. However, is taking Metformin for PCOS. BG of 78 on admission. Fasting and pre-prandial fingersticks ordered. BCM: Undecided Dispo: For continued inpatient observation. Pt to be seen and discussed with MFM Attending, . Brandi Grimaldo MD, PGY2 PGY-II, Obstetrics & Gynecology [facility] Principal Problem: SVT (supraventricular tachycardia) ([facility]) Associated attestation - Colin Metz MD - 04/18/2024 4:17 PM EDT I saw and evaluated the patient. I personally obtained the eaton and critical portions of the historyand physical exam or was physically present for eaton and critical portions performed by the resident/fellow. I reviewed the resident/fellow's documentation and discussed the patient with the resident/f lorena. I agree with the resident/fellow's medical decision making as documented in the note. This is a 39 y.o. transferred from [facility] for confirmed SVT that spontaneously converted to NSR. Troponins were increasing after the event but have been decreasing since this admission. She was transferred for proximity to OB and cardiology services. She is without cardiopulmonary or obstetric complaint today. An echocardiogram has been performed but not interpreted yet. Cardiology plans to change the patient's metoprolol dose and recommend monitoring her overnight. She remainson telemetry. We discussed that maternal arrhythmias have the potential to worsen with . Uncontrolled SVT does pose maternal and risk, justifying treatment of uncontrolled/symptomatic SVT. The first-line treatment for SVT consists of vagal maneuvers (carotid massage and/or Valsalva). Unresponsive SVT can be treated with adenosine to terminate acute SVT episodes. If hemodynamically unstable, synchronized cardioversion is considered acceptable treatment in the setting of contraindications to medication or SVT unresponsive to medication. Alternative therapies from most to least preferred also include metoprolol/propranolol, verapamil, procainamide, and amiodarone. Once the patient is discharged, an outpatient MFM consult can be placed. Delivery location will be determined based on third trimester disease control/response to treatment. Delivery at a facility with MFM and cardiology services may be indicated based on the patient's functional status and symptom burden - she is planning [facility] Of note, the patient has hypothyroidism on Synthroid. She has been on this dosing for about three months now. Her thyroid labs today show that she is very mildly overcorrected to hyperthyroidism (with accounting for reference ranges). This is generally preferred when compared to hypothyroidism, and I do not think her current thyroid status is placing her at increased risk for arrhythmias. We will therefore keep her dosing the same. She should continue monthly thyroid labs. 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 Colin Metz MD documented in this [facility] Work Phone: 1(782) 751-198709-28-2024 Note* Significant Event - Anna Figueroa MD - 04/18/2024 11:05 AM EDT NST for maternal SVT FHT: 120, mod cat, + accel, - decel Moosic: none Interpretation: reactive. Anna Figueroa MD T [facility] Work Phone: 1(547) 894-194409-27-2024 Hospital Discharge instructions Patient Education 04/17/2024 21:49:58 Supraventricular Tachycardia, Adult Supraventricular Tachycardia, Adult Supraventricular tachycardia (SVT) is a type of abnormal heart rhythm. It causes the heart to beat very quickly. SVT can start suddenly and last for a short time, which is called paroxysmal SVT, or it may last longer and require specialized treatment to return the heart rhythm to normal. A normal resting heart rate is 60 100 beats per minute. During an episode of SVT, your heart rate may be higher than 150 beats per minute. Episodes of SVT can be frightening, but they are usually notdangerous. However, if episodes happen several times a day or last longer than a few seconds, they may lead to heart failure. What are the causes? Usually, a normal heartbeat starts when an area called the sinoatrial node releases an electrical signal. In SVT, other areas of the heart send out electrical signals that interfere with the signal from the sinoatrial node. The cause of this abnormal electrical activity is not known. What increases the risk? You are more likely to develop this condition if you are: Middle aged or younger. Female. The following factors may also make you more likely to develop this condition: Stress or anxiety. Tiredness. Smoking. Stimulant drugs, such as cocaine and methamphetamine. Alcohol. Caffeine. . Having any of these conditions: ?A thyroid condition. ?Diabetes mellitus. ?Obstructive sleep apnea. What are the signs or symptoms? Symptoms of this condition include: A pounding heart. A feeling that the heart is skipping beats (palpitations). Weakness. Shortness of breath. Tightness or pain in your chest. Light-headedness or dizziness. Anxiety. Sweating. Nausea. Fainting. Fatigue or tiredness. A mild episode may not cause symptoms. How is this diagnosed? This condition may be diagnosed based on: Your symptoms. A physical exam. If you have an episode of SVT during the exam, the health care provider may be able to diagnose SVT by listening to your heart and feeling your pulse. Tests. These may include: ?An electrocardiogram (ECG). This test is done to check for problems with electrical activity in the heart. ?A Holter monitor or event monitor test. This test involves wearing a portable device that monitorsyour heart rate over time. ?An echocardiogram. This test involves taking an image of your heart using sound waves. It is done to rule out other causes of a fast heart rate. ?A stress echocardiogram. This test involves doing an echocardiogram when you are at rest and afterexercise. ?Blood tests. ?An electrophysiology study (EPS). This tests the electrical activity in your heart to find where the abnormal heart rhythm is coming from using cardiac catheters. How is this treated? This condition may be treated with: Vagal nerve stimulation. This involves stimulating your vagus nerve, which is a nerve that runs from the chest, through the neck, to the lower part of the brain. Stimulating this nerve can slow down the heart. It is often the first and only treatment that is needed for this condition. Work with your health care provider to find which technique works best for you. Ways to do this treatment include: ?Laying on your back, then holding your breath and pushing, as though you are having a bowel movement. ?Massaging an area on one side of your neck, below your jaw. Do not try this yourself. Only a health care provider should do this. If done the wrong way, it can lead to a stroke. ?Bending forward with your head between your legs. ?Coughing while bending forward with your head between your legs. ?Applying an ice-cold, wet towel to your face. Medicines that prevent attacks. Medicine to stop an attack. The medicine is given through an IV at the hospital. A small electric shock (cardioversion) that stops an attack. Before you get the shock, you will getmedicine to make you fall asleep. Radiofrequency ablation. In this procedure, a small, thin tube (catheter) is used to send radiofrequency energy to the area of tissue that is causing the rapid heartbeats. The energy kills the cells and helps your heart keep a normal rhythm. You may have this treatment if you have symptoms of SVT often. If you do not have symptoms, you may not need treatment. Follow these instructions at home: Stress Avoid stressful situations when possible. Find healthy ways of managing stress, such as: ?Taking part in relaxing activities, such as yoga, meditation, or being out in nature. ?Listening to relaxing music. ?Practicing relaxation techniques, such as deep breathing. ?Leading a healthy lifestyle. This involves getting plenty of sleep, exercising, and eating a balanced diet. ?Attending counseling or talk therapy with a mental health professional. Lifestyle Try to get at least 7 hours of sleep each night. Do not use any products that contain nicotine or tobacco. These products include cigarettes, chewing tobacco, and vaping devices, such as e-cigarettes. If you need help quitting, ask your health careprovider. Do not drink alcohol if it triggers episodes of SVT. If alcohol does not seem to trigger episodes, limit your alcohol intake. If you drink alcohol: ?Limit how much you have to: ?0 1 drink a day for women who are not . ?0 2 drinks a day for men. ?Know how much alcohol is in your drink. In the [place] one drink equals one 12 oz bottle of beer (355 mL), one 5 oz glass of wine (148 mL), or one 1 oz glass of hard liquor (44 mL). Be aware of how caffeine affects your condition. If caffeine: ?Triggers episodes of SVT, do not eat, drink, or use anything with caffeine in it. ?Does not seem to trigger episodes, consume caffeine in moderation. Do not use stimulant drugs. If you need help quitting, talk with your health care provider. General instructions Maintain a healthy weight. Exercise regularly. Ask your health care provider to suggest some good activities for you. Aim for one or a combination of the following: ?150 minutes per week of moderate exercise, such as walking or yoga. ?75 minutes per week of vigorous exercise, such as running or swimming. Perform vagus nerve stimulation as directed by your health care provider. Take [id number] and prescription medicines only as told by your health care provider. Keep all follow-up visits. This is important. Contact a health care provider if: You have episodes of SVT more often than before. Episodes of SVT last longer than before. Vagus nerve stimulation is no longer helping. You have new symptoms. Get help right away if: You have chest pain. Your symptoms get worse. You have trouble breathing. You have an episode of SVT that lasts longer than 20 minutes. You faint. These symptoms may represent a serious problem that is an emergency. Do not wait to see if the symptoms will go away. Get medical help right away. Call your local emergency services (911 in the [place] Do not drive yourself to the hospital. Summary Supraventricular tachycardia (SVT) is a type of abnormal heart rhythm. During an episode of SVT, your heart rate may be higher than 150 beats per minute. If you do not have symptoms, you may not need treatment. This information is not intended to replace advice given to you by your health care provider. Make sure you discuss any questions you have with your health care provider. Document Revised: 02/18/2021 Document Reviewed: 02/18/2021 [employer] Patient Education 2022 [employer]. Follow Up Care 04/17/2024 05:57:57 With:Arturo Mon Address: [address] [place] [address]- [phone] Business (1) When:04/20/2024 08:01:20 Comments:Follow-up with cardiology. With:Linda Taylor Address: [address] [address]- Business (1) When:04/20/2024 08:01:04 Comments:Call the office of your primary care doctor to arrange for follow-up within the above-stated timeframe. Follow-up with your primary care doctor about this ED visit. You should review your labs, imaging, and diagnoses from this ED visit with your primary care physician. There are occasionally non-emergent findings that require additional follow-up after your ED visit. If you were prescribed medications you should discuss possible side-effects and drug interactions with your pharmacist. Call 911 or go to the nearest Emergency Department if you develop any new or worsening symptoms.Seek immediate medical attention if you develop: worsening chest pain, new chest pain, nausea, vomiting, weakness, numbness, tingling, excessive sweating, shortness of breath, difficulty breathing, loss of motion in your arms or legs, or any new or worsening symptoms. [facility] 09-27-2024 Plan of care note* Care Plan - Tyron Ellison RN - 04/17/2024 11:39 PM EDT The patient's goals for the shift include The clinical goals for the shift include [facility] Work Phone: 1([phone]) 250-796609-27-2024 NoteED Patient Education Note Cardiovascular Supraventricular Tachycardia, Adult Supraventricular tachycardia (SVT) is a type of abnormal heart rhythm. It causes the heart to beat very quickly. SVT can start suddenly and last for a short time, which is called paroxysmal SVT, or it may last longer and require specialized treatment to return the heart rhythm to normal. A normal resting heart rate is 60?100 beats per minute. During an episode of SVT, your heart rate may be higher than 150 beats per minute. Episodes of SVT can be frightening, but they are usually notdangerous. However, if episodes happen several times a day or last longer than a few seconds, they may lead to heart failure. What are the causes? Usually, a normal heartbeat starts when an area called the sinoatrial node releases an electrical signal. In SVT, other areas of the heart send out electrical signals that interfere with the signal from the sinoatrial node. The cause of this abnormal electrical activity is not known. What increases the risk? You are more likely to develop this condition if you are: ? Middle aged or younger. ? Female. The following factors may also make you more likely to develop this condition: ? Stress or anxiety. ? Tiredness. ? Smoking. ? Stimulant drugs, such as cocaine and methamphetamine. ? Alcohol. ? Caffeine. ? . ? Having any of these conditions: ? A thyroid condition. ? Diabetes mellitus. ? Obstructive sleep apnea. What are the signs or symptoms? Symptoms of this condition include: ? A pounding heart. ? A feeling that the heart is skipping beats (palpitations). ? Weakness. ? Shortness of breath. ? Tightness or pain in your chest. ? Light-headedness or dizziness. ? Anxiety. ? Sweating. ? Nausea. ? Fainting. ? Fatigue or tiredness. A mild episode may not cause symptoms. How is this diagnosed? This condition may be diagnosed based on: ? Your symptoms. ? A physical exam. If you have an episode of SVT during the exam, the health care provider may be able to diagnose SVT by listening to your heart and feeling your pulse. ? Tests. These may include: ? An electrocardiogram (ECG). This test is done to check for problems with electrical activity in the heart. ? A Holter monitor or event monitor test. This test involves wearing a portable device that monitors your heart rate over time. ? An echocardiogram. This test involves taking an image of your heart using sound waves. It is doneto rule out other causes of a fast heart rate. ? A stress echocardiogram. This test involves doing an echocardiogram when you are at rest and after exercise. ? Blood tests. ? An electrophysiology study (EPS). This tests the electrical activity in your heart to find where the abnormal heart rhythm is coming from using cardiac catheters. How is this treated? This condition may be treated with: ? Vagal nerve stimulation. This involves stimulating your vagus nerve, which is a nerve that runs from the chest, through the neck, to the lower part of the brain. Stimulating this nerve can slow down the heart. It is often the first and only treatment that is needed for this condition. Work with your health care provider to find which technique works best for you. Ways to do this treatment include: ? Laying on your back, then holding your breath and pushing, as though you are having a bowel movement. ? Massaging an area on one side of your neck, below your jaw. Do not try this yourself. Only a health care provider should do this. If done the wrong way, it can lead to a stroke. ? Bending forward with your head between your legs. ? Coughing while bending forward with your head between your legs. ? Applying an ice-cold, wet towel to your face. ? Medicines that prevent attacks. ? Medicine to stop an attack. The medicine is given through an IV at the hospital. ? A small electric shock (cardioversion) that stops an attack. Before you get the shock, you will get medicine to make you fall asleep. ? Radiofrequency ablation. In this procedure, a small, thin tube (catheter) is used to send radiofrequency energy to the area of tissue that is causing the rapid heartbeats. The energy kills the cells and helps your heart keep a normal rhythm. You may have this treatment if you have symptoms of SVToften. If you do not have symptoms, you may not need treatment. Follow these instructions at home: Stress ? Avoid stressful situations when possible. ? Find healthy ways of managing stress, such as: ? Taking part in relaxing activities, such as yoga, meditation, or being out in nature. ? Listening to relaxing music. ? Practicing relaxation techniques, such as deep breathing. ? Leading a healthy lifestyle. This involves getting plenty of sleep, exercising, and eating a balanced diet. ? Attending counseling or talk therapy with a mental health professional. Lifestyle (Inserted Image. Unable to disp (more content not included)...[facility]09-27-2024 NoteProgress Note-Nurse Patient: ILDA VIERA Age: 39 years Sex: Female : 1985 Associated Diagnoses: None Author: Olimpia POWER, Sobia Progress Note TO ED for FHTs. Audible movement palpated and per patient throughout monitoring. Pt states she pt states she feels baby move and kick. [facility]Progress Note-Nurse Patient: ILDA VIERA Age: 39 years Sex: Female : 1985 Associated Diagnoses: None Author: Alee Whaley RN Progress Note 1400- To ER for monitoring. Pt monitored for 20 minutes. Audible movements noted. Pt states she is feeling baby move as well. FHT's 130;s with accels noted.[facility]09-27-2024 Evaluation + Plan noteExtracted from: Title:ED Note Author:Anton Reinoso DO Date :04/17/24 Hypokalemia (E87.6: Hypokale abby) Sustained SVT (I47.10: Supraventricular tachycardia, unspecified) Orders: magnesium sulfate + Dextrose 5% in Water intravenous solution 100 mL, 1 gram = 100 mL, Soln-IV, IV Piggyback, Once, Stop date 04/17/24 6:41:00 EDT, STAT, Start date 04/17/24 6:41:00 EDT, 100 mL/hr, Infuse over 60 minute(s), 04/17/24 6:41:00 EDT potassium chloride, 40 mEq = 2 tab(s), Tab-ER, Oral, Once, Stop date 04/17/24 6:41:00 EDT, STAT, Start date 04/17/24 6:41:00 EDT, 04/17/24 6:41:00 EDT Sodium Chloride 0.9% intravenous solution 1,000 mL, 1,000 mL, IV, 983.61 mL/hr, for 30 day(s), Stop date 05/17/24 6:22:00 EDT, STAT, Start date 04/17/24 6:23:00 EDT, 61 minute(s), Total volume (mL): 1,000, 104.1 kg, 2.13, m2 Basic Metabolic Panel CBC w/ Auto Diff ECG 12 Lead Adult ECG 12 Lead Adult ED Cardiac Monitoring eGFR Extra SST Tube Magnesium Level Oxygen Saturation Oxygen Therapy PT & PTT Saline Lock Insert Troponin 0 Hr. Troponin 1 Hr. TSH With T4fr Reflex Addendum by Kylah Rivas DO on April 17, 2024 14:01:45 EDT Patient signed out to me with 1 hour troponin and discharge pending. 1 hour troponin came back is critically elevated. Patient was reexamined. She is hemodynamically stable. She remains in a sinus tachycardia. She has no chest pain or shortness of breath. EKG repeated, no ischemic pattern. Will obtain a 3-hour and discussed with cardiology/HANGAR ATTENDANT. 3-hour again is markedly increased, doubled from previous. Discussed with the on-call radar operator Dr. Singh. He recommended transferring the patient to an [facility] center. Dr. Warren is updated on this patient in our emergency department, he agrees with plan for transfer. I did discuss with the patient. She would like transfer to [facility]. Case was discussed with Dr. Carlson who is the on-call HANGAR ATTENDANT at [facility] she supports transfer. Would like me discussed with [facility]. Discussed the case with Dr. Metz the on-call [facility]. She accepts the patient but would like discussion with cardiology to determine best placement for the patient. Discussed with Dr. Rabago the on-call radar operator at [facility] cardiac ICU who says the patient has telemetry appropriate. Patient was accepted the service of Dr. Colin Metz. Kylah Rivas DO, [facility] Critical Care Procedure Note Authorized and Performed by: Kylah Rivas DO Total critical care time: 35 min Due to a high probability of clinically significant, life threatening deterioration, the patient required my highest level of preparedness to intervene emergently and I personally spent this critical care time directly and personally managing the patient. This critical care time included obtaining a history; examining the patient; pulse oximetry; ordering and review of studies; arranging urgent treatment with development of a management plan; evaluation of patient's response to treatment; frequent reassessment; and, discussions with other providers. This critical care time was performed to assess and manage the high probability of imminent, life-threatening deterioration that could result in multi-organ failure. It was exclusive of separately billable procedures and treating other patients and teaching time. Please see MDM section and the rest of the note for further information on patient assessment and treatment. Future Appointments Appointment Date:04/20/2024 11:00:00 AM Scheduled Provider: Location:.ONCOLOGY Appointment Type:ONC Venofer (FT) Appointment Date:04/20/2024 01:00:00 PM Scheduled Provider: Location:.ONCOLOGY Appointment Type:ONC Injection (FT) Appointment Date:04/27/2024 02:30:00 PM Scheduled Provider: Location:.ONCOLOGY Appointment Type:ONC Injection (FT) Appointment Date:05/04/2024 02:00:00 PM Scheduled Provider: Location:.ONCOLOGY Appointment Type:ONC Injection (FT) Appointment Date:05/11/2024 09:20:00 AM Scheduled Provider:Dyan Ernandez MD Location:.ONCOLOGY Appointment Type:ONC Office Visit 20 (FT) Appointment Date:05/18/2024 01:00:00 PM Scheduled Provider: Location:.ONCOLOGY Appointment Type:ONC Injection (FT) Future Scheduled Tests Laboratory* CBC w/ Auto Diff 05/11/24 * Ferritin 05/11/24 * Folate Level 05/11/24 * Iron Level 05/11/24 * Iron Percent Saturation 05/11/24 * Transferrin 05/11/24 * Vitamin B12 Level 05/11/24 [facility] 09-27-2024 NoteProgress Note-Nurse Patient: ILDA VIERA Age: 39 years Sex: Female : 1985 Associated Diagnoses: None Author: Sobia Doan RN Progress Note TO ED for FHTs. Audible movement palpated and per patient throughout monitoring. Pt states [facility]09-17-2024 History of Present illness Narrative* Neva Pearson DO - 04/07/2024 8:45 AM EDT Denies anymore neck pain. Admits to around the head headache, taking tylenol as needed. Discussed Mg Oxide OTC supplements for headaches. Growth us on 04/23 [id number] Hospital Discharge instructions Patient Education 04/01/2024 20:38:46 Hypertension During Hypertension During High blood pressure (hypertension) is when the force of blood pumping through the arteries is high enough to cause problems with your health. Arteries are blood vessels that carry blood from the heart throughout the body. Hypertension during can cause problems for you and your baby. It can be mild or severe. There are different types of hypertension that can happen during . These include: Chronic hypertension. This happens when you had high blood pressure before you became , andit continues during the . Hypertension that develops before you are 20 weeks and continues during the is also called chronic hypertension. If you have chronic hypertension, it will not go away after you have your baby. You will need follow-up visits with your health careprovider after you have your baby. Your health care provider may want you to keep taking medicine for your blood pressure. Gestational hypertension. This is hypertension that develops after the 20th week of . Gestational hypertension usually goes away after you have your baby, but your health care provider will need to monitor your blood pressure to make sure that it is getting better. hypertension. This is high blood pressure that was present before delivery and continuesafter delivery or that starts after delivery. This usually occurs within 48 hours after childbirth but may occur up to 6 weeks after giving . When hypertension during is severe, it is a medical emergency that requires treatment right away. How does this affect me? Women who have hypertension during have a greater chance of developing hypertension laterin life or during future pregnancies. In some cases, hypertension during can cause serious complications, such as: Stroke. Heart attack. Injury to other organs, such as kidneys, lungs, or liver. Preeclampsia. A condition called hemolysis, elevated liver enzymes, and low platelet count (HELLP) syndrome. Convulsions or seizures. Placental abruption. How does this affect my baby? Hypertension during can affect your baby. Your baby may: Be born early (prematurely). Not weigh as much as he or she should at (low weight). Not tolerate labor well, leading to an unplanned delivery. This condition may also result in a baby's before (stillbirth). What are the risks? There are certain factors that make it more likely for you to develop hypertension during . These include: Having hypertension during a previous or a family history of hypertension. Being overweight. Being age 35 or older. Being for the first time. Being with more than one baby. Becoming using fertilization methods, such as IVF (in vitro fertilization). Having other medical problems, such as diabetes, kidney disease, or lupus. What can I do to lower my risk? The exact cause of hypertension during is not known. You may be able to lower your risk by: Maintaining a healthy weight. Eating a healthy and balanced diet. Following your health care provider's instructions about treating any long-term conditions that youhad before becoming . It is very important to keep all of your care appointments. Your health care provider willcheck your blood pressure and make sure that your is progressing as expected. If a problem is found, early treatment can prevent complications. How is this treated? Treatment for hypertension during varies depending on the type of hypertension you have and how serious it is. If you were taking medicine for high blood pressure before you became , talk with your health care provider. You may need to change medicine during because some medicines, like ANGY inhibitors, may not be considered safe for your baby. If you have gestational hypertension, your health care provider may order medicine to treat this during . If you are at risk for preeclampsia, your health care provider may recommend that you take a low-dose aspirin during your . If you have severe hypertension, you may need to be hospitalized so you and your baby can be monitored closely. You may also need to be given medicine to lower your blood pressure. In some cases, if your condition gets worse, you may need to deliver your baby early. Follow these instructions at home: Eating and drinking Drink enough fluid to keep your urine pale yellow. Avoid caffeine. Lifestyle Do not use any products that contain nicotine or tobacco. These products include cigarettes, chewing tobacco, and vaping devices, such as e-cigarettes. If you need help quitting, ask your health careprovider. Do not use alcohol or drugs. Avoid stress as much as possible. Rest and get plenty of sleep. Regular exercise can help to reduce your blood pressure. Ask your health care provider what kinds of exercise are best for you. General instructions Take pkkf-xmh-qzglpqm and prescription medicines only as told by your health care provider. Keep all and follow-up visits. This is important. Contact a health care provider if: You have symptoms that your health care provider told you may require more treatment or monitoring,such as: ?Headaches. ?Nausea or vomiting. ?Abdominal pain. ?Dizziness. ?Light-headedness. Get help right away if: You have symptoms of serious complications, such as: ?Severe abdominal pain that does not get better with treatment. ?A severe headache that does not get better, blurred vision, or double vision. ?Vomiting that does not get better. ?Sudden, rapid weight gain or swelling in your hands, ankles, or face. ?Vaginal bleeding. ?Blood in your urine. ?Shortness of breath or chest pain. ?Weakness on one side of your body or difficulty speaking. Your baby is not moving as much as usual. These symptoms may represent a serious problem that is an emergency. Do not wait to see if the symptoms will go away. Get medical help right away. Call your local emergency services (911 in the [place] Do not drive yourself to the hospital. Summary Hypertension during can cause problems for you and your baby. Treatment for hypertension during varies depending on the type of hypertension you have and how serious it is. Keep all and follow-up visits. This is important. Get help right away if you have symptoms of serious complications related to high blood pressure. This information is not intended to replace advice given to you by your health care provider. Make sure you discuss any questions you have with your health care provider. Document Revised: 03/30/2021 Document Reviewed: 03/30/2021 [employer] Patient Education 2023 [employer]. Follow Up Care 04/01/2024 17:18:31 With:Neva Pearson Address: [address] [place] [id number]- [facility] (1) When:04/07/2024 Comments:Call for any problems.Call for severe abdominal painCall physician if symptoms worsenReturn for decreased movementReturn if ruptured membranes or vaginal bleedingKeep followup appointment Take Tylenol as prescribed on bottle at home [facility] [id number] NoteDischarge Instructions Given Worsening The following Patient Education Materials have been given to the patient: ~~ [facility] Discharge instructions Patient Education 03/30/2024 12:18:06 Iron Deficiency Anemia, Adult, Rjxq-ra-Slru Iron Deficiency Anemia, Adult Iron deficiency anemia is when you do not have enough red blood cells or hemoglobin in your blood. This happens because you have too little iron in your body. Hemoglobin carries oxygen to parts of the body. Anemia can cause your body to not get enough oxygen. What are the causes? Not eating enough foods that have iron in them. The body not being able to take in iron well. Blood loss. What increases the risk? Having menstrual periods. Being . What are the signs or symptoms? Pale skin, lips, and nails. Weakness, dizziness, and getting tired easily. Feeling like you cannot breathe well when moving (shortness of breath). Cold hands and feet. Mild anemia may not cause any symptoms. How is this treated? This condition is treated by finding out why you do not have enough iron and then getting more iron. It may include: Adding foods to your diet that have a lot of iron. Taking iron pills (supplements). If you are or , you may need to take extra iron. Your diet often does not provide the amount of iron that you need. Getting more vitamin C in your diet. Vitamin C helps your body take in iron. You may need to take iron pills with a glass of orange juice or vitamin C pills. Medicines to make heavy menstrual periods size marker. Surgery or testing procedures to find what is causing the condition. You may need blood tests to see if treatment is working. If the treatment does not seem to be working, you may need more tests. Follow these instructions at home: Medicines Take xdbi-tnz-imuilov and prescription medicines only as told by your doctor. This includes iron pills and vitamins. Taking them as told is important because too much iron can be harmful. ?Take iron pills when your stomach is empty. If you cannot handle this, take them with food. ?Do not drink milk or take antacids at the same time as your iron pills. ?Iron pills may turn your poop (stool)black. If you cannot handle taking iron pills by mouth, ask your doctor about getting iron through: ?An IV tube. ?A shot (injection) into a muscle. Eating and drinking Talk with your doctor before changing the foods you eat. Your doctor may tell you to eat foods thathave a lot of iron, such as: ?Liver. ?Low-fat (lean) beef. ?Breads and cereals that have iron added to them. ?Eggs. ?Dried fruit. ?Dark green, leafy vegetables. Eat fresh fruits and vegetables that are high in vitamin C. They help your body use iron. Foods with a lot of vitamin C include: ?Oranges. ?Peppers. ?Tomatoes. ?Mangoes. Managing constipation If you are taking iron pills, they may cause trouble pooping (constipation). To prevent or treat this, you may need to: Drink enough fluid to keep your pee (urine) pale yellow. Take kyyr-dks-ocufhwn or prescription medicines. Eat foods that are high in fiber. These include beans, whole grains, and fresh fruits and vegetables. Limit foods that are high in fat and sugar. These include fried or sweet foods. General instructions Return to your normal activities when your doctor says that it is safe. Keep all follow-up visits. Contact a doctor if: You feel like you may vomit (nauseous), or you vomit. You feel weak. You get light-headed when getting up from sitting or lying down. You are sweating for no reason. You have trouble pooping. You have worse breathing with physical activity. You have heaviness in your chest. Get help right away if: You faint. If this happens, do not drive yourself to the hospital. You have a fast heartbeat, or a heartbeat that does not feel regular. Summary Iron deficiency anemia happens when you have too little iron in your body. This condition is treated by finding out why you do not have enough iron in your body and then getting more iron. Take uvta-ssw-rfsqumv and prescription medicines only as told by your doctor. Eat fresh fruits and vegetables that are high in vitamin C. Contact a doctor if you have trouble pooping or feel weak. This information is not intended to replace advice given to you by your health care provider. Make sure you discuss any questions you have with your health care provider. Document Revised: 08/16/2022 Document Reviewed: 08/16/2022 [employer] Patient Education 2023 [employer]. 03/30/2024 12:17:51 Vitamin B12 Deficiency, Dspr-vl-Qwce Vitamin B12 Deficiency Vitamin B12 deficiency means that your body does not have enough vitamin B12. The body needs this important vitamin: To make red blood cells. To make genes (DNA). To help the nerves work. If you do not have enough vitamin B12 in your body, you can have health problems, such as not having enough red blood cells in the blood (anemia). What are the causes? Not eating enough foods that contain vitamin B12. Not being able to take in (absorb) vitamin B12 from the food that you eat. Certain diseases. A condition in which the body does not make enough of a certain protein. This results in your body not taking in enough vitamin B12. Having a surgery in which part of the stomach or small intestine is taken out. Taking medicines that make it hard for the body to take in vitamin B12. These include: ?Heartburn medicines. ?Some medicines that are used to treat diabetes. What increases the risk? Being an older adult. Eating a vegetarian or vegan diet that does not include any foods that come from animals. Not eating enough foods that contain vitamin B12 while you are . Taking certain medicines. Having alcoholism. What are the signs or symptoms? In some cases, there are no symptoms. If the condition leads to too few blood cells or nerve damage, symptoms can occur, such as: Feeling weak or tired. Not being hungry. Losing feeling (numbness) or tingling in your hands and feet. Redness and burning of the tongue. Feeling sad (depressed). Confusion or memory problems. Trouble walking. If anemia is very bad, symptoms can include: Being short of breath. Being dizzy. Having a very fast heartbeat. How is this treated? Changing the way you eat and drink, such as: ?Eating more foods that contain vitamin B12. ?Drinking little or no alcohol. Getting vitamin B12 shots. Taking vitamin B12 supplements by mouth (orally). Your doctor will tell you the dose that is best for you. Follow these instructions at home: Eating and drinking Eat foods that come from animals and have a lot of vitamin B12 in them. These include: ?Meats and poultry. This includes beef, pork, chicken, turkey, and organ meats, such as liver. ?Seafood, such as clams, rainbow trout, salmon, tuna, and manda. ?Eggs. ?Dairy foods such as milk, yogurt, and cheese. Eat breakfast cereals that have vitamin B12 added to them (are fortified). Check the label. The items listed above may not be a complete list of foods and beverages you can eat and drink. Contact a dietitian for more information. Alcohol use Do not drink alcohol if: ?Your doctor tells you not to drink. ?You are , may be , or are planning to become . If you drink alcohol: ?Limit how much you have to: ?0 1 drink a day for women. ?0 2 drinks a day for men. ?Know how much alcohol is in your drink. In the [place] one drink equals one 12 oz bottle of beer (355 mL), one 5 oz glass of wine (148 mL), or one 1 oz glass of hard liquor (44 mL). General instructions Get any vitamin B12 shots if told by your doctor. Take supplements only as told by your doctor. Follow the directions. Keep all follow-up visits. Contact a doctor if: Your symptoms come back. Your symptoms get worse or do not get better with treatment. Get help right away if: You have trouble breathing. You have a very fast heartbeat. You have chest pain. You get dizzy. You faint. These symptoms may be an emergency. Get help right away. Call 911. Do not wait to see if the symptoms will go away. Do not drive yourself to the hospital. Summary Vitamin B12 deficiency means that your body is not getting enough of the vitamin. In some cases, there are no symptoms of this condition. Treatment may include making a change in the way you eat and drink, getting shots, or taking supplements. Eat foods that have vitamin B12 in them. This information is not intended to replace advice given to you by your health care provider. Make sure you discuss any questions you have with your health care provider. Document Revised: 03/02/2022 Document Reviewed: 03/02/2022 [employer] Patient Education 2023 [employer]. Follow Up Care 08/05/2023 15:24:28 With:Awais BAI, QUINCY Ybarra, ONC Address: When: Unknown Comments:IV venofer X3 doses.IM B12 weekly for 6 weeks for now.Take ferrous sulfate 325 mg 1-2 daily along with B12 2500 mcg sublingual daily.Labs in 6 weeks.RTC in 6 weeks. [facility] 09-09-2024 NoteOncology Progress Note Chief Complaint Elevated blood protein; no questions or concerns. Oncological History/ROS/PE/Assessment and Plan Chief Complaint Elevated total protein and recurrent infections History of Present Illness Emma is a 38-year-old nice lady with a history of polycystic ovarian syndrome who has been takingmetformin for that and has been having about 4 or strep throat a year almost yearly and who recently had a pneumonia beginning of May 2023 required use of prednisone and doxycycline was referredto our hematology clinic to be evaluated for elevated total protein found on recent labs done on 05/29/2023 with total protein of 8.5 but with normal albumin, normal globulin, normal hemoglobin creatinine and calcium level as well. At that time she had the pneumonia and she was treated with the prednisone her total WBCs was 14,000 mainly on neutrophils. Absolute lymphocyte count was normal. Her labs revealed elevated AST of 51. Patient never drank alcohol and denied tobacco smoking as well. She had 7 total pregnancies and 5 alive kids with 2 miscarriages and 11 weeks and 8 weeks. She never had thrombotic events. Last time she was checked for HIV during her last was in 2018. She is not aware of having or ever had been tested for hepatitis B or C as well. She has been with the same sexual partner for years as well. On review of system patient stated that she has joint pain especially in her fingers and they get puffy at times. Patient stated that she wheezes when she had cough and she has been coughing for 2 months from April 2023 till initial consult visit on 06/25/2023. She denied chest pain or shortness of breath unless she exerts herself. She has red cheeks and she is not sure of her grandma had SLE. Her mom had osteoarthritis and is not aware of anybody had other rheumatological diseases. Her maternal grandmother had bladder cancer. 08/05/23: She is here for the results of the labs from 3 weeks ago as an evaluation for the elevated total protein, recurrent infections, malar rash, and elevated liver function test. She is taking her high-dose vitamin D as recommended by her primary care physician. He denies any new complaints. Labs on 06/25/2023 revealed normal CBC with a white count of 10.6, hemoglobin 12.6, platelet 430. Creatinine is normal 0.9 and calcium is normal 9.5. LFTs alk phos is 89, ALT 36 AST 25 total protein is elevated again 8.4. Uric acid is 6.7. The iron is 59 and the iron saturation 14% below TIBC is high 425 and ferritin is 60. Folate is over 22. TSH 1.88 and free T40.92. Immunoglobulins revealed IgA less than 5 w hich can explain recurrent respiratory infections, IgE is 16 which is low normal. IgM is normal 158, whereas the IgA is normal is high in 1848. Monoclonal protein not observed in the serum. C ANCA and P ANCA were negative and the HOMERO was negative and rheumatoid factor was normal 10.6. Angiotensin-converting enzyme was normal at 41. 24-hour urine protein was normal and urinary M spike was not observed. Skeletal bone survey was negative for lytic bone lesions. Ultrasound of the liver revealed hepatomegaly with hepatic steatosis and cholecystectomy. The liverwas 25.4 cm. 03/30/24: She is here for 6 months follow up for myeloma labs, iron studies, CBCB and b12 results. She is 6 months now and denied any new complaints. She tested negative for RF again on 03/30/24. -Preliminary myeloma labs 03/25/24 reviewed IgA level less than 5 but the IgG is normal and the IgM is normal. [place] light chain in the serum was elevated 2. She has normal lambda light chain and normal kappa over lambda ratio and no monoclonal protein detected in the serum protein immunofixation wasnegative for monoclonality. And her RF was negative as well. She will have acquired or genetic IgA deficiency have. The acquired could be performed current seasonal allergies and sinus infections. However and regardless of the etiology of the IgA deficiency wedo not have any treatment to offer for her. IVIG would only work for IgG deficiency or combined immu nodeficiency. she denied enlarged LAP. She is taking iron 65 mg bid but no b12. She takes vitamins as well. 14 point systems were reviewed and are negative. Review of Systems Constitutional: Fatigue, No fever, No chills. Eye: Negative. Ear/Nose/Mouth/Throat: Negative. Respiratory: Cough, Wheezing, No shortness of breath, No hemoptysis. Cardiovascular: No chest pain, No palpitations. Gastrointestinal: Negative. Genitourinary: Negative. Hematology/Lymphatics: Negative, No bruising tendency. Endocrine: Negative. Immunologic: Negative. Musculoskeletal: Joint pain, Joint pain of her fingers.. Integumentary: Red cheeks.. Neurologic: Alert and oriented X4. Psychiatric: Negative. ROS reviewed as documented in chart Physical Examination General: alert, no acute distress HENMT: Normocephalic, atraumatic. Neck: supple and no LAP or thyromegaly. Cardiovas (more content not included)...[facility]09-02-2024 Telephone encounter Note* Telephone Encounter - Fátima Williamson V, MD - 03/23/2024 5:26 PM EDT The following approved medication requests have been transmitted electronically. Requested Prescriptions Pending Prescriptions Disp Refills metFORMIN (GLUCOPHAGE) 1,000 mg tablet [Pharmacy Med Name: METFORMIN HCL 1,000 MG TABLET] 180 tablet 3 Sig: take 1 tablet by mouth twice a day Fátima Williamson MD [facility]09-02-2024 Miscellaneous Notes* Telephone Encounter - Fátima Williamson V, MD - 03/23/2024 5:26 PM EDT The following approved medication requests have been transmitted electronically. Requested Prescriptions Pending Prescriptions Disp Refills metFORMIN (GLUCOPHAGE) 1,000 mg tablet [Pharmacy Med Name: METFORMIN HCL 1,000 MG TABLET] 180 tablet 3 Sig: take 1 tablet by mouth twice a day Fátima Williamson MD * Telephone Encounter - Kandace Moran LPN - 03/20/2024 2:55 PM EDT Recommended to follow up in 6 months at [facility]. NOV not established . Patients last Endocrinology visit occurred Last encounter Visit on 02/10/2024 (with Fátima Williamson) Follow-up evaluation has been established Upcoming Endocrinology Appointments - Next 365 Days No appointments to display . Requested Prescriptions Pending Prescriptions Disp Refills metFORMIN (GLUCOPHAGE) 1,000 mg tablet [Pharmacy Med Name: METFORMIN HCL 1,000 MG TABLET] 180 tablet 3 Sig: take 1 tablet by mouth twice a day If patient is due for an appointment please route to provider for refill consideration and also to the endo scheduling pool. [facility] Telephone encounter Note * Telephone Encounter - Kandace Moran LPN - 03/20/2024 2:55 PM EDT Recommended to follow up in 6 months at [facility]. NOV not established . Patients last Endocrinology visit occurred Last encounter Visit on 02/10/2024 (with Fátima Williamson) Follow-up evaluation has been established Upcoming Endocrinology Appointments - Next 365 Days No appointments to display . Requested Prescriptions Pending Prescriptions Disp Refills metFORMIN (GLUCOPHAGE) 1,000 mg tablet [Pharmacy Med Name: METFORMIN HCL 1,000 MG TABLET] 180 tablet 3 Sig: take 1 tablet by mouth twice a day If patient is due for an appointment please route to provider for refill consideration and also to the endo scheduling pool. [facility]08-[facility] History of Present illness Narrative* Erlinda Galarza MA - 03/17/2024 11:45 AM EDT Glucola order, Tdap information, and kick count sheet provided for the patient. Patient states that she has been taking Metformin for years and she has loose bowel movements with it, she is developing hemorrhoids that are really painful. Would like to discuss vitamin for tachycardia. * Neva Pearson DO - 03/17/2024 11:45 AM EDT Will switch to Metformin 1000mg once daily. Growth us in 5w. Glucola order given. Discussed with patient to have cardiology clearance for labor/pushing during labor. documented in this encounterCapital Region Medical [id number] NoteHNO ID: [id number] Author: FÁTIMA WILLIAMSON MD Service: ? Author Type: Physician Type: Progress Notes Filed: 02/10/2024 13:58 Note Text: This Team Access Model encounter involved medical decision making with virtual visit including video .Patient consented to the visit. I have communicated my name and active licensure. The patient's identity and physical location were verified at the time of this visit. Either the patient or their legal employee representative has been informed of the risks and benefits of -- and alternatives to -- treatment through a remote evaluation and consents to proceed with the evaluation remotely. THIS NOTE WAS CARRIED FORWARD FROM THE VISIT WITH me in Feb 2023 AND ADDENDED APPROPRIATE TO REFLECT TODAY'S VISIT WITH HISTORY, EXAM, ROS, DATA REVIEWED AND ASSESSMENT AND PLAN. Patient is here for followup of hypothyroidism and hyperandrogenemia. HISTORY OF PRESENT ILLNESS: Hypothyroidism: Diagnosed in 2017. Taking levoxyl 125 mcg daily. She takes first thing in morning on empty stomach by itself and waits at least 60 minutes before eating or drinking and taking other meds. She taking any other medications at night. Energy has been a little low. Notes her sleep is not great. 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 On metformin and spironolactone. Acne stable. Denies hirsutism. Continues to have thin hair- unchanged, She did trial with rogaine and ketoconazole shampoo but did not feel these helped. Impaired glucose tolerance: Patient reports having GTT done 2-3 years ago and was told this was abnormal and started on metformin. Social history: Denies tobacco use. INTERVAL HPI (November 21, 2022 ): INTERVAL HPI (March 14, 2023 ): Has been doing well Periods every 35 days Exercising in gym Low carb diet Taking synthroid and metformin appropriately No hirsutism Has been gradually losing weight INTERVAL HPI (September 24, 2023 ): Doing well Weight stable INTERVAL HPI (February 10, 2024 ): 21 weeks Doing well PAST MEDICAL HISTORY Diagnosis Date Acquired hypothyroidism 01/21/2020 Bipolar 1 disorder (HCC) 01/21/2020 VIDEO EXAM: (if completed, performed via video enabled technology) GENERAL: alert and appropriate, in no distress, well-hydrated, well nourished, and happy, smiling, interactive LABS AND IMAGING: Component Latest Ref Rng AND Units 06/18/2020 08/08/2020 TSH 0.270 - 4.200 uU/mL 0.071 (L) 0.525 Free T4 0.9 - 1.7 ng/dL 1.7 Hemoglobin A1C (%) Date Value 02/06/2024 4.7 06/18/2020 5.2 Cholesterol, Total (mg/dL) Date Value 09/20/2023 198 HDL Cholesterol (mg/dL) Date Value 09/20/2023 54 LDL Cholesterol (mg/dL) Date Value 09/20/2023 105 Triglyceride (mg/dL) Date Value 09/20/2023 197 TSH Date Value Ref Range Status 02/06/2024 3.710 0.270 - 4.200 mIU/L Final Comment: If the patient is , TSH reference range varies by gestational period: First Trimester (weeks 9-12): 0.180-2.990 mIU/L Second Trimester: 0.110-3.980 mIU/L Third Trimester: 0.480-4.710 mIU/L Charanjit Zamora, et al. A Practical Approach for the Verifications and Determination of Site- and Trimester-Specific Reference Intervals for Thyroid Function tests in . Thyroid, 2019:29:3:412-420. Mert Garcia, et al. 2017 Guidelines of the [place] Thyroid Association for the Diagnosis and Management of Thyroid Disease during and the . Thyroid, 2017:27:3:315-389. Creatinine Date Value Ref Range Status 02/06/2024 0.66 0.58 - 0.96 mg/dL Final 08/08/2021 0.80 0.58 - 0.96 mg/dL Final 08/08/2020 0.94 0.58 - 0.96 mg/dL Final 06/18/2020 0.84 0.58 - 0.96 mg/dL Final Protein, Urine (mg/dL) Date Value 01/07/2013 neg IMPRESSION AND RECOMMENDATIONS: 38/F --currently 21 weeks 1. Acquired hypothyroidism Increase the dose to 8 pills a week of 137 mcg Knows to take the pre jacinta at night Explained the importance of taking SYNTHROID every day empty stomach and atleast 30 min prior to food. Instructed to take Ca/iron pills/MVI atleast 4 hrs after synthroid Repeat in 6 weeks AND message me - TSH BLD; Future - T4 FREE/FREE THYROX; Future 2. Hyperandrogenemia Continue metformin Curently - COMP METABOLIC PANEL; Future 3.Weight management : Will post pone till after delivery GLP1-- If not covered can consider phenteremine +/- topamax Follow up in 6 months post delivery Fátima Williamson MD Answers submitted by the patient for this visit: Core Review of Systems (Submitted on 02/03/2024) Fever : No Night sweats: Yes Recent unintentional weight change: No Nasal Congestion: Yes Hearing Loss: No Vision Disturbance: No A cough: No Difficulty Breathing?: No Chest pain: No Irregular heartbeat: No Leg Swelling: No Nausea: No Diarrhea: Yes Black tarry stools: No Difficulty Urinating?: No Awaken at Night More Than Onc (more content not included)...[facility]07-[facility] History of Present illness Narrative* Fátima Williamson V, MD - 02/10/2024 1:46 PM EDT This Team Access Model encounter involved medical decision making with virtual visit including video .Patient consented to the visit. I have communicated my name and active licensure. The patient's identity and physical location wereverified at the time of this visit. Either the patient or their legal employee representative has been informed of the risks and benefits of -- and alternatives to -- treatment through a remote evaluation andconsents to proceed with the evaluation remotely. THIS NOTE WAS CARRIED FORWARD FROM THE VISIT WITH me in Feb 2023 AND ADDENDED APPROPRIATE TO REFLECT TODAY'S VISIT WITH HISTORY, EXAM, ROS, DATA REVIEWED AND ASSESSMENT AND PLAN. Patient is here for followup of hypothyroidism and hyperandrogenemia. HISTORY OF PRESENT ILLNESS: Hypothyroidism: Diagnosed in 2017. Taking levoxyl 125 mcg daily. She takes first thing in morning on empty stomach by itself and waits at least 60 minutes before eating or drinking and taking other meds. She taking any other medications at night. Energy has been a little low. Notes her sleep is not great. 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 On metformin and spironolactone. Acne stable. Denies hirsutism. Continues to have thin hair- unchanged, She did trial with rogaine and ketoconazole shampoo but did not feel these helped. Impaired glucose tolerance: Patient reports having GTT done 2-3 years ago and was told this was abnormal and started on metformin. Social history: Denies tobacco use. INTERVAL HPI (November 21, 2022 ): INTERVAL HPI (March 14, 2023 ): Has been doing well Periods every 35 days Exercising in gym Low carb diet Taking synthroid and metformin appropriately No hirsutism Has been gradually losing weight INTERVAL HPI (September 24, 2023 ): Doing well Weight stable INTERVAL HPI (February 10, 2024 ): 21 weeks Doing well PAST MEDICAL HISTORY Diagnosis Date Acquired hypothyroidism 01/21/2020 Bipolar 1 disorder (HCC) 01/21/2020 VIDEO EXAM: (if completed, performed via video enabled technology) GENERAL: alert and appropriate, in no distress, well-hydrated, well nourished, and happy, smiling, interactive LABS AND IMAGING: Component Latest Ref Rng & Units 06/18/2020 08/08/2020 TSH 0.270 - 4.200 uU/mL 0.071 (L) 0.525 Free T4 0.9 - 1.7 ng/dL 1.7 Hemoglobin A1C (%) Date Value 02/06/2024 4.7 06/18/2020 5.2 Cholesterol, Total (mg/dL) Date Value 09/20/2023 198 HDL Cholesterol (mg/dL) Date Value 09/20/2023 54 LDL Cholesterol (mg/dL) Date Value 09/20/2023 105 Triglyceride (mg/dL) Date Value 09/20/2023 197 TSH Date Value Ref Range Status 02/06/2024 3.710 0.270 - 4.200 mIU/L Final Comment: If the patient is , TSH reference range varies by gestational period: First Trimester (weeks 9-12): 0.180-2.990 mIU/L Second Trimester: 0.110-3.980 mIU/L Third Trimester: 0.480-4.710 mIU/L Charanjit Zamora et al. A Practical Approach for the Verifications and Determination of Site- and Trimester-Specific Reference Intervals for Thyroid Function tests in . Thyroid, 2019:29:3:412-420.Mert Garcia, et al. 2017 Guidelines of the [place] Thyroid Association for the Diagnosis and Management of Thyroid Disease during and the . Thyroid, 2017:27:3:315-389. Creatinine Date Value Ref Range Status 02/06/2024 0.66 0.58 - 0.96 mg/dL Final 08/08/2021 0.80 0.58 - 0.96 mg/dL Final 08/08/2020 0.94 0.58 - 0.96 mg/dL Final 06/18/2020 0.84 0.58 - 0.96 mg/dL Final Protein, Urine (mg/dL) Date Value 01/07/2013 neg IMPRESSION AND RECOMMENDATIONS: 38/F --currently 21 weeks 1. Acquired hypothyroidism Increase the dose to 8 pills a week of 137 mcg Knows to take the pre at night Explained the importance of taking SYNTHROID every day empty stomach and atleast 30 min prior to food. Instructed to take Ca/iron pills/MVI atleast 4 hrs after synthroid Repeat in 6 weeks AND message me - TSH BLD; Future - T4 FREE/FREE THYROX; Future 2. Hyperandrogenemia Continue metformin Curently - COMP METABOLIC PANEL; Future 3.Weight management : Will post pone till after delivery GLP1-- If not covered can consider phenteremine +/- topamax Follow up in 6 months post delivery Fátima Williamson MD Answers submitted by the patient for this visit: Core Review of Systems (Submitted on 02/03/2024) Fever : No Night sweats: Yes Recent unintentional weight change: No Nasal Congestion: Yes Hearing Loss: No Vision Disturbance: No A cough: No Difficulty Breathing?: No Chest pain: No Irregular heartbeat: No Leg Swelling: No Nausea: No Diarrhea: Yes Black tarry stools: No Difficulty Urinating?: No Awaken at Night More Than Once to Urinate?: No Joint pain or stiffness: No Muscle aches: No Leg or Foot Discomfort at Night?: No A rash: No Dizziness: No Headaches: Yes Memory Loss: No Seizures: No documented in this [facility]Tr[facility]06-25-[facility]24 NoteEchocardiology Procedure Exam Date/Time Accession # Ordering Echo Transthoracic 01/14/2024 14:42 EDT [id number] Arturo Mon MD Complete CPT code 65739 [id number] Reason for Exam (Echo Transthoracic Complete) Palpitations R00.2;Other (please specify) [place] [address] Adult Echocardiogram Report Name: ILDA VIERA Study Date: 01/14/2024 02:05 PM BP: 137/86 mmHg Patient Location: [facility] HR: 97 : 1985 Gender: Female Height: 62 in Age: 38 yrs Ethnicity: [facility] Weight: 225 lb Reason For Study: Palpitations BSA: 2.0 m2 History: Family history of AFIB, 17 weeks Ordering Physician: Arturo Mon Referring Physician: Arturo Mon Performed By: Shelly Kendall [facility] Interpretation Summary Left ventricular systolic function is normal. Ejection Fraction = 60-65%. No significant valvular disease. Procedure A complete two-dimensional transthoracic echocardiogram was performed (2D, M- mode, spectral and color flow Doppler). Left Ventricle The left ventricle is normal in size. There is normal left ventricular wall thickness. Left ventricular systolic function is normal. Ejection Fraction = 60-65%. The left ventricular wall motion is normal. Normal diastolic function. Left Atrium The left atrial size is normal. There is no atrial septal defect. Right Atrium Right atrial size is normal. Right Ventricle The right ventricular systolic function is normal. The right ventricle is normal size. Echocardiology Report Aortic Valve The trileaflet aortic valve opening is normal. No aortic regurgitation. There is no aortic stenosis. Mitral Valve Mitral valve structure is normal. There is no mitral regurgitation noted. No mitral valve stenosis. Tricuspid Valve Anatomically normal tricuspid valve. There is trace tricuspid regurgitation. No evidence of tricuspid stenosis. Pulmonic Valve No evidence of stenosis. The pulmonic valve is normal. There is no pulmonic valve regurgitation. Arteries The aortic root is normal in size. Normal ascending aorta. Effusion There is no pericardial effusion. MMode/2D Measurements & Calculations RVDd: 2.6 cm LVIDd: 4.7 cm FS: 39.9 % Ao root diam: 2.4 cm IVSd: 0.83 cm LVIDs: 2.8 cm EDV(Teich): 101.4 ml Ao root area: 4.7 cm2 LVPWd: 0.79 cm ESV(Teich): 29.9 ml LA dimension: 3.3 cm EF(Teich): 70.5 % asc Aorta Diam: 2.2 cm LVOT diam: 1.9 cm LVLd ap4: 7.9 cm EDV(MOD-sp2): 51.8 ml LVOT area: 2.7 cm2 EDV(MOD-sp4): 69.7 ml ESV(MOD-sp2): 16.8 ml LVLs ap4: 6.0 cm EF(MOD-sp2): 67.6 % ESV(MOD-sp4): 33.0 ml EF(MOD-sp4): 52.7 % SV(MOD-sp4): 36.7 ml TAPSE: 2.3 cm Ao Sinus of Valsalva: 2.6 cm Ao Sinotubular Junction: 2.1 cm IVC Diam: 1.5 cm RVIDd/LVIDd: 0.56 EF (MOD-bp): 62.6 % LA Vol Index: 13.4 ml/m2 Time Measurements Aortic HR: 98.0 BPM Doppler Measurements & Calculations Lat Peak E' Erica: 11.6 cm/sec Ao V2 max: 150.3 cm/sec LV V1 max P.9 mmHg RAP systole: 3.0 mmHg Med Peak E' Erica: 6.3 cm/sec Ao max P.0 mmHg LV V1 max: 98.8 cm/sec LASHANDA(V,D): 1.8 cm2 AV VR: 0.66 Echocardiology Report FINAL REPORT Dictated: 01/14/2024 2:05 pm Arturo Mon MD Signed (Electronic Signature): 01/14/2024 3:10 pm Signed by: Arturo Mon MD Transcribed by: ROSALES Technologist: Wilmer [facility]04-10-2024 Hospital Discharge instructions Patient Education 10/29/2023 22:07:10 Threatened Miscarriage Threatened Miscarriage A threatened miscarriage occurs when a woman has vaginal bleeding during the first 20 weeks of but the has not ended. If vaginal bleeding occurs during this time, the health care provider will do tests to make sure the woman is still . The woman's condition may be considered a threatened miscarriage if the tests show: That she is still . That the embryo or unborn baby (fetus) inside the uterus is still growing. A threatened miscarriage does not mean your will end, but it does increase the risk of losing your (miscarriage). What are the causes? The cause of this condition is usually not known. What increases the risk? The following factors may make a woman more likely to have a miscarriage: Certain medical conditions Conditions that affect the hormone balance in the body, such as thyroid disease or polycystic ovarysyndrome. Diabetes. Autoimmune disorders. Infections. Bleeding disorders. Obesity. Lifestyle factors Using products with tobacco or nicotine or being exposed to tobacco smoke. Having alcohol. Having large amounts of caffeine. Recreational drug use. Problems with reproductive organs or structures Cervical insufficiency. This is when the the lowest part of the uterus (cervix) opens and thins before is at term. Having a condition called Asherman syndrome, which causes scarring in the uterus or causes the uterus to be abnormal in structure. Fibrous growths, called fibroids, in the uterus. Congenital abnormalities. These problems are present at . Infection of the cervix or uterus. Personal or medical history Injury (trauma). Having had a miscarriage before. Being younger than age 18 or older than age 35. Exposure to harmful substances in the environment. This may include radiation or heavy metals, suchas lead. Using certain medicines. What are the signs or symptoms? Symptoms of this condition include: Vaginal bleeding or spotting, with or without cramps or pain. Mild pain or cramps in your abdomen. How is this diagnosed? You may have tests to check whether you are still . These tests will be done if you have bleeding, with or without pain, in your abdomen before the 20th week of . These tests include: Ultrasound. A physical exam. Measurement of your baby's heart rate. Lab tests, such as blood tests, urine tests, or swabs for infection. You may be diagnosed with a threatened miscarriage if: Ultrasound testing shows that you are still . Your baby's heart rate is strong. A physical exam shows that your cervix is closed. Blood tests confirm that you are still . How is this treated? No treatments have been shown to prevent a threatened miscarriage from going on to a complete miscarriage. However, the right home care is important. Follow these instructions at home: Get plenty of rest. Do not have sex, douche, or put anything in your vagina, such as tampons, until your health care provider says it is okay. Do not smoke or use recreational drugs. Do not drink alcohol. Avoid caffeine. Keep all follow-up visits. This is important. Contact a health care provider if: You have light vaginal bleeding or spotting while . You have pain or cramping in your abdomen. You have a fever. Get help right away if: Heavy bleeding soaks through 2 large sanitary pads an hour for more than 2 hours. Blood clots come out of your vagina. Tissue comes out of your vagina. You leak fluid, or you have a gush of fluid from your vagina. You have severe low back pain or cramps in your abdomen. You have a fever, chills, and severe pain in the abdomen. Summary A threatened miscarriage occurs when a woman bleeds from the vagina during the first 20 weeks of but the has not ended. The cause of a threatened miscarriage is usually not known. Symptoms of this condition may include vaginal bleeding and mild pain or cramps in your abdomen. No treatments have been shown to prevent a threatened miscarriage from going on to a complete miscarriage. Keep all follow-up visits. This is important. This information is not intended to replace advice given to you by your health care provider. Make sure you discuss any questions you have with your health care provider. Document Revised: 01/06/2021 Document Reviewed: 01/06/2021 [employer] Patient Education 2022 [employer]. Follow Up Care 10/29/2023 18:48:47 With:Neva Pearson Address: [address] [place] [phone] Business (1) When:10/31/2023 21:47:10 [facility]04-09-2024 Evaluation + Plan noteExtracted from: Title:ED Note Author:Ricky Hall DO Date :10/29/23 Threatened miscarriage (O20. 0: Threatened ) Orders: Lactated Ringers Injection, 1,000 mL, Soln-IV, IV, Once, Stop date 10/29/23 19:36:00 EDT, STAT, Start date 10/29/23 19:36:00 EDT, mL/hr, Infuse over 61, minute(s) ABO/Rh Basic Metabolic Panel Beta hCG Quantitative CBC w/ Auto Diff eGFR Extra Blue Tube Extra SST Tube Saline Lock Insert UA with Cult Rflx US 1st Trimester Future Appointments Appointment Date:03/02/2024 03:00:00 PM Scheduled Provider:Awais BAI, Dyan Cid Location:[facility]ONCOLOGY Appointment Type:ONC Office Visit 30 ([facility]) Future Scheduled Tests Laboratory* Rheumatoid Factor Quantitative 02/03/24 * HOMERO w/Reflex if POS 02/03/24 * MATT and PE, Serum 02/03/24 * Immunoglobs. A/E/G/M 02/03/24 * Free K+L Lt Chains,Qn,S 02/03/24 * CBC w/ Auto Diff 02/03/24 * Comprehensive Metabolic Panel 02/03/24 * Ferritin 02/03/24 * Iron Level 02/03/24 * Iron Percent Saturation 02/03/24 * Transferrin 02/03/24 * Vitamin B12 Level 02/03/24 [facility]03-21-2024 Miscellaneous Notes* Telephone Encounter - Zana Schaefer - 10/10/2023 4:15 PM EDT Called and scheduled patient for 02/10/24 virtual follow up with Dr. Williamson. * Telephone Encounter - Sheri Salomon, RN - 10/09/2023 11:25 AM EDT [facility] 09/24/23 NOV not yet scheduled- 6 month follow up recommended at [facility] documented in this [facility]Tr[facility]-2024 NoteHNO ID: [id number] Author: FÁTIMA WILLIAMSON MD Service: ? Author Type: Physician Type: Progress Notes Filed: 09/24/2023 12:26 Note Text: This Team Access Model encounter involved medical decision making with virtual visit including video .Patient consented to the visit. I have communicated my name and active licensure. The patient's identity and physical location were verified at the time of this visit. Either the patient or their legal employee representative has been informed of the risks and benefits of -- and alternatives to -- treatment through a remote evaluation and consents to proceed with the evaluation remotely. THIS NOTE WAS CARRIED FORWARD FROM THE VISIT WITH me in Feb 2023 AND ADDENDED APPROPRIATE TO REFLECT TODAY'S VISIT WITH HISTORY, EXAM, ROS, DATA REVIEWED AND ASSESSMENT AND PLAN. Patient is here for followup of hypothyroidism and hyperandrogenemia. HISTORY OF PRESENT ILLNESS: Hypothyroidism: Diagnosed in 2017. Taking levoxyl 125 mcg daily. She takes first thing in morning on empty stomach by itself and waits at least 60 minutes before eating or drinking and taking other meds. She taking any other medications at night. Energy has been a little low. Notes her sleep is not great. 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 On metformin and spironolactone. Acne stable. Denies hirsutism. Continues to have thin hair- unchanged, She did trial with rogaine and ketoconazole shampoo but did not feel these helped. Impaired glucose tolerance: Patient reports having GTT done 2-3 years ago and was told this was abnormal and started on metformin. Social history: Denies tobacco use. INTERVAL HPI (November 21, 2022 ): INTERVAL HPI (March 14, 2023 ): Has been doing well Periods every 35 days Exercising in gym Low carb diet Taking synthroid and metformin appropriately No hirsutism Has been gradually losing weight INTERVAL HPI (September 24, 2023 ): Doing well Weight stable PAST MEDICAL HISTORY Diagnosis Date Acquired hypothyroidism 01/21/2020 Bipolar 1 disorder (HCC) 01/21/2020 VIDEO EXAM: (if completed, performed via video enabled technology) GENERAL: alert and appropriate, in no distress, well-hydrated, well nourished, and happy, smiling, interactive LABS AND IMAGING: Component Latest Ref Rng AND Units 06/18/2020 08/08/2020 TSH 0.270 - 4.200 uU/mL 0.071 (L) 0.525 Free T4 0.9 - 1.7 ng/dL 1.7 Hemoglobin A1C (%) Date Value 06/18/2020 5.2 Cholesterol, Total (mg/dL) Date Value 09/20/2023 198 HDL Cholesterol (mg/dL) Date Value 09/20/2023 54 LDL Cholesterol (mg/dL) Date Value 09/20/2023 105 Triglyceride (mg/dL) Date Value 09/20/2023 197 TSH Date Value Ref Range Status 09/20/2023 1.480 0.270 - 4.200 mIU/L Final Comment: If the patient is , TSH reference range varies by gestational period: First Trimester (weeks 9-12): 0.180-2.990 mIU/L Second Trimester: 0.110-3.980 mIU/L Third Trimester: 0.480-4.710 mIU/L Charanjit Zamora et al. A Practical Approach for the Verifications and Determination of Site- and Trimester-Specific Reference Intervals for Thyroid Function tests in . Thyroid, 2019:29:3:412-420. Mert Garcia, et al. 2017 Guidelines of the [place] Thyroid Association for the Diagnosis and Management of Thyroid Disease during and the . Thyroid, 2017:27:3:[id number]. Creatinine Date Value Ref Range Status 08/08/2021 0.80 0.58 - 0.96 mg/dL Final 08/08/2020 0.94 0.58 - 0.96 mg/dL Final 06/18/2020 0.84 0.58 - 0.96 mg/dL Final 02/01/2020 0.68 0.58 - 0.96 mg/dL Final Protein, Urine (mg/dL) Date Value 01/07/2013 neg IMPRESSION AND RECOMMENDATIONS: 1. Acquired hypothyroidism Ct currrent dose - TSH BLD; Future - T4 FREE/FREE THYROX; Future 2. Hyperandrogenemia Continue metformin On progesterone IUD currently. - COMP METABOLIC PANEL; Future 3.Weight management : Interested Will try GLP1 If not covered can consider phenteremine +/- topamax Add exercise routine Conitnue low carb Follow up in 6 months Fátima Williamson MD Answers submitted by the patient for this visit: Core Review of Systems (Submitted on 09/22/2023) Fever : No Night sweats: Yes Recent unintentional weight change: No Nasal Congestion: No Hearing Loss: No Vision Disturbance: No A cough: No Difficulty Breathing?: No Chest pain: No Irregular heartbeat: No Leg Swelling: No Nausea: No Diarrhea: No Black tarry stools: No Difficulty Urinating?: No Awaken at Night More Than Once to Urinate?: No Joint pain or stiffness: No Muscle aches: No Leg or Foot Discomfort at Night?: No A rash: No Dizziness: No Headaches: Yes Memory Loss: No Seizures: [id number] Hospital Discharge instructions Patient Education 08/08/2023 10:09:53 Upper Respiratory Infection, Adult Upper Respiratory Infection, Adult An upper respiratory infection (URI) is a common viral infection of the nose, throat, and upper airpassages that lead to the lungs. The most common type of URI is the common cold. URIs usually get better on their own, without medical treatment. What are the causes? A URI is caused by a virus. You may catch a virus by: Breathing in droplets from an infected person's cough or sneeze. Touching something that has been exposed to the virus (is contaminated) and then touching your mouth, nose, or eyes. What increases the risk? You are more likely to get a URI if: You are very young or very old. You have close contact with others, such as at work, school, or a health care facility. You smoke. You have long-term (chronic) heart or lung disease. You have a weakened disease-fighting system (immune system). You have nasal allergies or asthma. You are experiencing a lot of stress. You have poor nutrition. What are the signs or symptoms? A URI usually involves some of the following symptoms: Runny or stuffy (congested) nose. Cough. Sneezing. Sore throat. Headache. Fatigue. Fever. Loss of appetite. Pain in your forehead, behind your eyes, and over your cheekbones (sinus pain). Muscle aches. Redness or irritation of the eyes. Pressure in the ears or face. How is this diagnosed? This condition may be diagnosed based on your medical history and symptoms, and a physical exam. Your health care provider may use a swab to take a mucus sample from your nose (nasal swab). This sample can be tested to determine what virus is causing the illness. How is this treated? URIs usually get better on their own within 7 10 days. Medicines cannot cure URIs, but your health care provider may recommend certain medicines to help relieve symptoms, such as: Biaw-jud-xdadtgr cold medicines. Cough suppressants. Coughing is a type of defense against infection that helps to clear the respiratory system, so take these medicines only as recommended by your health care provider. Fever-reducing medicines. Follow these instructions at home: Activity Rest as needed. If you have a fever, stay home from work or school until your fever is gone or until your health care provider says your URI cannot spread to other people (is no longer contagious). Your health care provider may have you wear a face mask to prevent your infection from spreading. Relieving symptoms Gargle with a mixture of salt and water 3 4 times a day or as needed. To make salt water, completely dissolve 1 tsp (3 6 g) of salt in 1 cup (237 mL) of warm water. Use a cool-mist humidifier to add moisture to the air. This can help you breathe more easily. Eating and drinking Drink enough fluid to keep your urine pale yellow. Eat soups and other clear broths. General instructions Take wcmo-vec-ntnmjtc and prescription medicines only as told by your health care provider. These include cold medicines, fever reducers, and cough suppressants. Do not use any products that contain nicotine or tobacco. These products include cigarettes, chewing tobacco, and vaping devices, such as e-cigarettes. If you need help quitting, ask your health careprovider. Stay away from secondhand smoke. Stay up to date on all immunizations, including the yearly (annual) flu vaccine. Keep all follow-up visits. This is important. How to prevent the spread of infection to others URIs can be contagious. To prevent the infection from spreading: Wash your hands with soap and water for at least 20 seconds. If soap and water are not available, use hand exhibits coordinator. Avoid touching your mouth, face, eyes, or nose. Cough or sneeze into a tissue or your sleeve or elbow instead of into your hand or into the air. Contact a health care provider if: You are getting worse instead of better. You have a fever or chills. Your mucus is brown or red. You have yellow or brown discharge coming from your nose. You have pain in your face, especially when you bend forward. You have swollen neck glands. You have pain while swallowing. You have white areas in the back of your throat. Get help right away if: You have shortness of breath that gets worse. You have severe or persistent: ?Headache. ?Ear pain. ?Sinus pain. ?Chest pain. You have chronic lung disease along with any of the following: ?Making high-pitched whistling sounds when you breathe, most often when you breathe out (wheezing). ?Prolonged cough (more than 14 days). ?Coughing up blood. ?A change in your usual mucus. You have a stiff neck. You have changes in your: ?Vision. ?Hearing. ?Thinking. ?Mood. These symptoms may be an emergency. Get help right away. Call 911. Do not wait to see if the symptoms will go away. Do not drive yourself to the hospital. Summary An upper respiratory infection (URI) is a common infection of the nose, throat, and upper air passages that lead to the lungs. A URI is caused by a virus. URIs usually get better on their own within 7 10 days. Medicines cannot cure URIs, but your health care provider may recommend certain medicines to help relieve symptoms. This information is not intended to replace advice given to you by your health care provider. Make sure you discuss any questions you have with your health care provider. Document Revised: 02/07/2022 Document Reviewed: 02/07/2022 [employer] Patient Education 2022 [employer]. 08/08/2023 10:09:48 DASH Eating Plan DASH Eating Plan DASH stands for Dietary Approaches to Stop Hypertension. The DASH eating plan is a healthy eating plan that has been shown to: Reduce high blood pressure (hypertension). Reduce your risk for type 2 diabetes, heart disease, and stroke. Help with weight loss. What are tips for following this plan? Reading food labels Check food labels for the amount of salt (sodium) per serving. Choose foods with less than 5 percent of the Daily Value of sodium. Generally, foods with less than 300 milligrams (mg) of sodium per serving fit into this eating plan. To find whole grains, look for the word whole as the first word in the ingredient list. Shopping Buy products labeled as low-sodium or no salt added. Buy fresh foods. Avoid canned foods and pre-made or frozen meals. Cooking Avoid adding salt when cooking. Use salt-free seasonings or herbs instead of table salt or sea salt. Check with your health care provider or pharmacist before using salt substitutes. Do not steel foods. Cook foods using healthy methods such as baking, boiling, grilling, roasting, andbroiling instead. Cook with heart-healthy oils, such as olive, canola, avocado, soybean, or sunflower oil. Meal planning Eat a balanced diet that includes: ?4 or more servings of fruits and 4 or more servings of vegetables each day. Try to fill one-half of your plate with fruits and vegetables. ?6 8 servings of whole grains each day. ?Less than 6 oz (170 g) of lean meat, poultry, or fish each day. A 3-oz (85-g) serving of meat is about the same size as a deck of cards. One egg equals 1 oz (28 g). ?2 3 servings of low-fat dairy each day. One serving is 1 cup (237 mL). ?1 serving of nuts, seeds, or beans 5 times each week. ?2 3 servings of heart-healthy fats. Healthy fats called omega-3 fatty acids are found in foods such as walnuts, flaxseeds, fortified milks, and eggs. These fats are also found in cold-water fish, such as sardines, salmon, and mackerel. Limit how much you eat of: ?Canned or prepackaged foods. ?Food that is high in trans fat, such as some fried foods. ?Food that is high in saturated fat, such as fatty meat. ?Desserts and other sweets, sugary drinks, and other foods with added sugar. ?Full-fat dairy products. Do not salt foods before eating. Do not eat more than 4 egg yolks a week. Try to eat at least 2 vegetarian meals a week. Eat more home-cooked food and less restaurant, buffet, and fast food. Lifestyle When eating at a restaurant, ask that your food be prepared with less salt or no salt, if possible. If you drink alcohol: ?Limit how much you use to: ?0 1 drink a day for women who are not . ?0 2 drinks a day for men. ?Be aware of how much alcohol is in your drink. In the [place] one drink equals one 12 oz bottle of beer (355 mL), one 5 oz glass of wine (148 mL), or one 1 oz glass of hard liquor (44 mL). General information Avoid eating more than 2,300 mg of salt a day. If you have hypertension, you may need to reduce your sodium intake to 1,500 mg a day. Work with your health care provider to maintain a healthy body weight or to lose weight. Ask what an ideal weight is for you. Get at least 30 minutes of exercise that causes your heart to beat faster (aerobic exercise) most days of the week. Activities may include walking, swimming, or biking. Work with your health care provider or dietitian to adjust your eating plan to your individual calorie needs. What foods should I eat? Fruits All fresh, dried, or frozen fruit. Canned fruit in natural juice (without added sugar). Vegetables Fresh or frozen vegetables (raw, steamed, roasted, or grilled). Low-sodium or reduced-sodium tomatoand vegetable juice. Low-sodium or reduced-sodium tomato sauce and tomato paste. Low-sodium or reduced-sodium canned vegetables. Grains Whole-grain or whole-wheat bread. Whole-grain or whole-wheat pasta. Brown rice. Oatmeal. Quinoa. Bulgur. Whole-grain and low-sodium cereals. Skyla bread. Low- fat, low-sodium crackers. Whole-wheat flour tortillas. Meats and other proteins Skinless chicken or turkey. Ground chicken or turkey. Pork with fat trimmed off. Fish and seafood. Egg whites. Dried beans, peas, or lentils. Unsalted nuts, nut butters, and seeds. Unsalted canned beans. Lean cuts of beef with fat trimmed off. Low-sodium, lean precooked or cured meat, such as sausages or meat loaves. Dairy Low-fat (1%) or fat-free (skim) milk. Reduced-fat, low-fat, or fat-free cheeses. Nonfat, low-sodiumricotta or cottage cheese. Low-fat or nonfat yogurt. Low-fat, low-sodium cheese. Fats and oils Soft margarine without trans fats. Vegetable oil. Reduced-fat, low-fat, or light mayonnaise and salad dressings (reduced-sodium). Canola, safflower, olive, avocado, soybean, and sunflower oils. Avocado. Seasonings and condiments Herbs. Spices. Seasoning mixes without salt. Other foods Unsalted popcorn and pretzels. Fat-free sweets. The items listed above may not be a complete list of foods and beverages you can eat. Contact a dietitian for more information. What foods should I avoid? Fruits Canned fruit in a light or heavy syrup. Fried fruit. Fruit in cream or butter sauce. Vegetables Creamed or fried vegetables. Vegetables in a cheese sauce. Regular canned vegetables (not low-sodium or reduced-sodium). Regular canned tomato sauce and paste (not low-sodium or reduced-sodium). Regular tomato and vegetable juice (not low-sodium or reduced-sodium). Pickles. Olives. Grains Baked goods made with fat, such as croissants, muffins, or some breads. Dry pasta or rice meal packs. Meats and other proteins Fatty cuts of meat. Ribs. Fried meat. Schumacher. Bologna, salami, and other precooked or cured meats, such as sausages or meat loaves. Fat from the back of a pig (fatback). Bratwurst. Salted nuts and seeds. Canned beans with added salt. Canned or smoked fish. Whole eggs or egg yolks. Chicken or turkey with skin. Dairy Whole or 2% milk, cream, and cucp-fut-lssc. Whole or full-fat cream cheese. Whole-fat or sweetened yogurt. Full-fat cheese. Nondairy creamers. Whipped toppings. Processed cheese and cheese spreads. Fats and oils Butter. Stick margarine. Lard. Shortening. Ghee. Schumacher fat. Tropical oils, such as coconut, palm kernel, or palm oil. Seasonings and condiments Onion salt, garlic salt, seasoned salt, table salt, and sea salt. Worcestershire sauce. Tartar sauce. Barbecue sauce. Teriyaki sauce. Soy sauce, including reduced-sodium. Steak sauce. Canned and packaged gravies. Fish sauce. Oyster sauce. Cocktail sauce. Store-bought horseradish. Ketchup. Mustard. Meat flavorings and tenderizers. Bouillon cubes. Hot sauces. Pre-made or packaged marinades. Pre-made or packaged taco seasonings. Relishes. Regular salad dressings. Other foods Salted popcorn and pretzels. The items listed above may not be a complete list of foods and beverages you should avoid. Contact a dietitian for more information. Where to find more information National Heart, Lung, and Blood [place]: www.nhlbi.nih.gov [place] [employer]: www.heart.org Academy of Nutrition and Dietetics: www.eatright.org National Kidney Foundation: www.kidney.org Summary The DASH eating plan is a healthy eating plan that has been shown to reduce high blood pressure (hypertension). It may also reduce your risk for type 2 diabetes, heart disease, and stroke. When on the DASH eating plan, aim to eat more fresh fruits and vegetables, whole grains, lean proteins, low-fat dairy, and heart-healthy fats. With the DASH eating plan, you should limit salt (sodium) intake to 2,300 mg a day. If you have hypertension, you may need to reduce your sodium intake to 1,500 mg a day. Work with your health care provider or dietitian to adjust your eating plan to your individual calorie needs. This information is not intended to replace advice given to you by your health care provider. Make sure you discuss any questions you have with your health care provider. Document Revised: 06/10/2020 Document Reviewed: 06/10/2020 [facility] Patient Education 2022 [employer]. 08/08/2023 10:09:41 Nonalcoholic Fatty Liver Disease Diet, Adult Nonalcoholic Fatty Liver Disease Diet, Adult Nonalcoholic fatty liver disease is a condition that causes fat to build up in and around the liver. The disease makes it harder for the liver to work the way that it should. Following a healthy dietcan help to keep nonalcoholic fatty liver disease under control. It can also help to prevent or improve conditions that are associated with the disease, such as heart disease, diabetes, high blood pressure, and abnormal cholesterol levels. Along with regular exercise, this diet: Promotes weight loss. Helps to control blood sugar levels. Helps to improve the way that the body uses insulin. What are tips for following this plan? Reading food labels Always check food labels for: The amount of saturated fat in a food. You should limit your intake of saturated fat. Saturated fatis found in foods that come from animals, including meat and dairy products such as butter, cheese,and whole milk. The amount of fiber in a food. You should choose high-fiber foods such as fruits, vegetables, and whole grains. Try to get 25 30 grams (g) of fiber a day. Cooking When cooking, use heart-healthy oils that are high in monounsaturated fats. These include olive oil, canola oil, and avocado oil. Limit frying or deep-frying foods. Cook foods using healthy methods such as baking, boiling, steaming, and grilling instead. Meal planning You may want to keep track of how many calories you take in. Eating the right amount of calories will help you achieve a healthy weight. Meeting with a registered dietitian can help you get started. Limit how often you eat takeout and fast food. These foods are usually very high in fat, salt, and sugar. Use the glycemic index (GI) to plan your meals. The index tells you how quickly a food will raise your blood sugar. Choose low-GI foods (GI less than 55). These foods take a longer time to raise blood sugar. A registered dietitian can help you identify foods lower on the GI scale. Lifestyle You may want to follow a Mediterranean diet. This diet includes a lot of vegetables, lean meats or fish, whole grains, fruits, and healthy oils and fats. What foods can I eat? Fruits Bananas. Apples. Oranges. Grapes. Papaya. [place]. Pomegranate. Kiwi. Grapefruit. Cherries. Vegetables Lettuce. Spinach. Peas. Beets. Cauliflower. Cabbage. Broccoli. Carrots. Tomatoes. Squash. Eggplant.Herbs. Peppers. Onions. Cucumbers. [place] sprouts. Yams and sweet potatoes. Beans. Lentils. Grains Whole wheat or whole-grain foods, including breads, crackers, cereals, and pasta. Stone-ground whole wheat. Unsweetened oatmeal. Bulgur. Barley. Quinoa. Brown or wild rice. [place] or whole wheat flour tortillas. Meats and other proteins Lean meats. Poultry. Tofu. Seafood and shellfish. Dairy Low-fat or fat-free dairy products, such as yogurt, cottage cheese, or cheese. Beverages Water. Sugar-free drinks. Tea. Coffee. Low-fat or skim milk. Milk alternatives, such as soy or almond milk. Real fruit juice. Fats and oils Avocado. Canola or olive oil. Nuts and nut butters. Seeds. Seasonings and condiments Mustard. Relish. Low-fat, low-sugar ketchup and barbecue sauce. Low-fat or fat- free mayonnaise. Sweets and desserts Sugar-free sweets. The items listed above may not be a complete list of foods and beverages you can eat. Contact a dietitian for more information. What foods should I limit or avoid? Meats and other proteins Limit red meat to 1 2 times a week. Dairy Full-fat dairy. Fats and oils Palm oil and coconut oil. Fried foods. Other foods Processed foods. Foods that contain a lot of salt or sodium. Sweets and desserts Sweets that contain sugar. Beverages Sweetened drinks, such as sweet tea, milkshakes, iced sweet drinks, and sodas. Alcohol. The items listed above may not be a complete list of foods and beverages you should avoid. Contact a dietitian for more information. Where to find more information The National [place] of Diabetes and Digestive and Kidney Diseases: niddk.nih.gov Summary Nonalcoholic fatty liver disease is a condition that causes fat to build up in and around the liver. Following a healthy diet can help to keep nonalcoholic fatty liver disease under control. Your dietshould be rich in fruits, vegetables, whole grains, and lean proteins. Limit your intake of saturated fat. Saturated fat is found in foods that come from animals, including meat and dairy products such as butter, cheese, and whole milk. This diet promotes weight loss, helps to control blood sugar levels, and helps to improve the way that the body uses insulin. This information is not intended to replace advice given to you by your health care provider. Make sure you discuss any questions you have with your health care provider. Document Revised: 10/30/2019 Document Reviewed: 07/30/2019 [facility] Patient Education 2022 [employer]. 08/08/2023 10:09:27 Polycystic Ovary Syndrome Polycystic Ovary Syndrome Polycystic ovarian syndrome (PCOS) is a common hormonal disorder among women of reproductive age. In most women with PCOS, small fluid-filled sacs (cysts) grow on the ovaries. PCOS can cause problemswith menstrual periods and make it hard to get and stay . If this condition is not treated,it can lead to serious health problems, such as diabetes and heart disease. What are the causes? The cause of this condition is not known. It may be due to certain factors, such as: Irregular menstrual cycle. High levels of certain hormones. Problems with the hormone that helps to control blood sugar (insulin). Certain genes. What increases the risk? You are more likely to develop this condition if you: Have a family history of PCOS or type 2 diabetes. Are overweight, eat unhealthy foods, and are not active. These factors may cause problems with blood sugar control, which can contribute to PCOS or PCOS symptoms. What are the signs or symptoms? Symptoms of this condition include: Ovarian cysts and sometimes pelvic pain. Menstrual periods that are not regular or are too heavy. Inability to get or stay . Increased growth of hair on the face, chest, stomach, back, thumbs, thighs, or toes. Acne or oily skin. Acne may develop during adulthood, and it may not get better with treatment. Weight gain or obesity. Patches of thickened and dark brown or black skin on the neck, arms, breasts, or thighs. How is this diagnosed? This condition is diagnosed based on: Your medical history. A physical exam that includes a pelvic exam. Your health care provider may look for areas of increased hair growth on your skin. Tests, such as: ?An ultrasound to check the ovaries for cysts and to view the lining of the uterus. ?Blood tests to check levels of sugar (glucose), male hormone (testosterone), and female hormones (estrogen and progesterone). How is this treated? There is no cure for this condition, but treatment can help to manage symptoms and prevent more health problems from developing. Treatment varies depending on your symptoms and if you want to have a baby or if you need control. Treatment may include: Making nutrition and lifestyle changes. Taking the progesterone hormone to start a menstrual period. Taking control pills to help you have regular menstrual periods. Taking medicines such as: ?Medicines to make you ovulate, if you want to get . ?Medicine to reduce extra hair growth. Having surgery in severe cases. This may involve making small holes in one or both of your ovaries.This decreases the amount of testosterone that your body makes. Follow these instructions at home: Take jyda-qrl-yriemej and prescription medicines only as told by your health care provider. Follow a healthy meal plan that includes lean proteins, complex carbohydrates, fresh fruits and vegetables, low-fat dairy products, healthy fats, and fiber. If you are overweight, lose weight as told by your health care provider. Your health care provider can determine how much weight loss is best for you and can help you lose weight safely. Keep all follow-up visits. This is important. Contact a health care provider if: Your symptoms do not get better with medicine. Your symptoms get worse or you develop new symptoms. Summary Polycystic ovarian syndrome (PCOS) is a common hormonal disorder among women of reproductive age. PCOS can cause problems with menstrual periods and make it hard to get and stay . If this condition is not treated, it can lead to serious health problems, such as diabetes and heart disease. There is no cure for this condition, but treatment can help to manage symptoms and prevent more health problems from developing. This information is not intended to replace advice given to you by your health care provider. Make sure you discuss any questions you have with your health care provider. Document Revised: 12/15/2020 Document Reviewed: 12/15/2020 [employer] [facility] Patient Education 2022 [employer]. 08/08/2023 10:09:23 Hypothyroidism Hypothyroidism Hypothyroidism is when the thyroid gland does not make enough of certain hormones. This is called an underactive thyroid. The thyroid gland is a small gland located in the lower front part of the neck, just in front of the windpipe (trachea). This gland makes hormones that help control how the bodyuses food for energy (metabolism) as well as how the heart and brain function. These hormones also play a role in keeping your bones strong. When the thyroid is underactive, it produces too little ofthe hormones thyroxine (T4) and triiodothyronine (T3). What are the causes? This condition may be caused by: Giselle's disease. This is a disease in which the body's disease-fighting system (immune system) attacks the thyroid gland. This is the most common cause. Viral infections. . Certain medicines. defects. Problems with a gland in the center of the brain (pituitary gland). Lack of enough iodine in the diet. Other causes may include: Past radiation treatments to the head or neck for cancer. Past treatment with radioactive iodine. Past exposure to radiation in the environment. Past surgical removal of part or all of the thyroid. What increases the risk? You are more likely to develop this condition if: You are female. You have a family history of thyroid conditions. You use a medicine called lithium. You take medicines that affect the immune system (immunosuppressants). What are the signs or symptoms? Common symptoms of this condition include: Not being able to tolerate cold. Feeling as though you have no energy (lethargy). Lack of appetite. Constipation. Sadness or depression. Weight gain that is not explained by a change in diet or exercise habits. Menstrual irregularity. Dry skin, coarse hair, or brittle nails. Other symptoms may include: Muscle pain. Slowing of thought processes. Poor memory. How is this diagnosed? This condition may be diagnosed based on: Your symptoms, your medical history, and a physical exam. Blood tests. You may also have imaging tests, such as an ultrasound or MRI. How is this treated? This condition is treated with medicine that replaces the thyroid hormones that your body does not make. After you begin treatment, it may take several weeks for symptoms to go away. Follow these instructions at home: Take qebh-eyk-pseospd and prescription medicines only as told by your health care provider. If you start taking any new medicines, tell your health care provider. Keep all follow-up visits as told by your health care provider. This is important. ?As your condition improves, your dosage of thyroid hormone medicine may change. ?You will need to have blood tests regularly so that your health care provider can monitor your condition. Contact a health care provider if: Your symptoms do not get better with treatment. You are taking thyroid hormone replacement medicine and you: ?Sweat a lot. ?Have tremors. ?Feel anxious. ?Lose weight rapidly. ?Cannot tolerate heat. ?Have emotional swings. ?Have diarrhea. ?Feel weak. Get help right away if: You have chest pain. You have an irregular heartbeat. You have a rapid heartbeat. You have difficulty breathing. These symptoms may be an emergency. Get help right away. Call 911. Do not wait to see if the symptoms will go away. Do not drive yourself to the hospital. Summary Hypothyroidism is when the thyroid gland does not make enough of certain hormones (it is underactive). When the thyroid is underactive, it produces too little of the hormones thyroxine (T4) and triiodothyronine (T3). The most common cause is Giselle's disease, a disease in which the body's disease-fighting system(immune system) attacks the thyroid gland. The condition can also be caused by viral infections, medicine, , or past radiation treatment to the head or neck. Symptoms may include weight gain, dry skin, constipation, feeling as though you do not have energy,and not being able to tolerate cold. This condition is treated with medicine to replace the thyroid hormones that your body does not make. This information is not intended to replace advice given to you by your health care provider. Make sure you discuss any questions you have with your health care provider. Document Revised: 07/10/2022 Document Reviewed: 07/10/2022 [employer] Patient Education 2022 [employer]. 08/08/2023 10:09:21 Mixed Bipolar Disorder Mixed Bipolar Disorder Mixed bipolar disorder is a mental health disorder in which a person has episodes of emotional highs (hardeep), lows (depression), or both of these feelings at the same time. People with this disorder have very big mood changes (mood swings) that happen quickly on a regular basis. These episodes may be severe enough to cause problems with relationships, school, or work. In some cases, they can cause the person to be unsafe, and the person may need to stay in a hospital. What are the causes? The cause of this condition is not known. What increases the risk? The following factors may make you more likely to develop this condition: Having a family history of the disorder. Misusing substances such as alcohol or drugs. Having an anxiety disorder. Having another illness, such as heart disease or thyroid disease. What are the signs or symptoms? Symptoms of this condition include having episodes of hardeep or depression. Sometimes, symptoms of both happen at the same time. For instance, you may feel sad and full of energy at the same time. Youmay have mood swings almost every day. Symptoms of hardeep may include: Very high self-esteem or self-confidence. Being unusually talkative, or feeling a need to keep talking. Speech may be very fast. It may seem like you cannot stop talking. Racing thoughts or constant talking, with quick shifts between topics that may or may not be related (flight of ideas). Being less able or more able to focus. Increased purposeful activity, such as work, study, or social activity. Increased nonproductive activity. This could be pacing, squirming and fidgeting, or finger and toe tapping. Impulsive behavior and poor judgment. These may lead to high-risk activities, such as having unprotected sex or spending a lot of money. Symptoms of depression may include: Feeling sad, hopeless, or helpless. Lack of feeling or caring about anything. Not being able to enjoy things that you used to enjoy. Trouble concentrating or remembering. Trouble making decisions. Thoughts of , or wanting to harm yourself. How is this diagnosed? This condition may be diagnosed based on: Your symptoms, your medical history, and a mental health (psychiatric) assessment. Your health careprovider will ask about your emotional episodes. A physical exam. This is done to rule out any health problems that may be causing symptoms. Your health care provider will also ask about your alcohol and drug use. How is this treated? Bipolar disorder is a long-term (chronic) illness. It is best controlled with treatment that is given on an ongoing basis, rather than only when symptoms are present. A combination of treatments is best. Treatment may include: Medicines. These can be prescribed by a provider who specializes in treating mental health disorders (psychiatrist). ?Medicines called mood stabilizers, antipsychotics, or antidepressants may be prescribed. ?If symptoms occur while one type of medicine is taken, other medicines may be added. Talk therapy (psychotherapy). Some forms of talk therapy, such as cognitive behavioral therapy (CBT), can provide support, education, and guidance. Methods of managing your condition, such as journaling or relaxation exercises. These may include: ?Yoga. ?Meditation. ?Deep breathing. Lifestyle changes, such as: ?Avoiding alcohol and drug use. ?Exercising regularly. ?Getting plenty of sleep. ?Making healthy eating choices. In severe cases, if other treatments do not work, a procedure called electroconvulsive therapy (ECT) may be used. In ECT, short electrical pulses are sent to the brain through the scalp. This is doneto change the brain chemicals that send messages between brain cells (neurotransmitters). Follow these instructions at home: Activity Return to your normal activities as told by your health care provider. Find activities that you enjoy, and make time to do them. Get regular exercise. Lifestyle Follow a set schedule for eating and sleeping. Eat a balanced diet that includes fresh fruits and vegetables, whole grains, low-fat dairy products, and lean meat. Get 7 8 or more hours of sleep each night. Avoid using products that contain nicotine or tobacco. If you need help quitting, ask your health care provider. Do not drink alcohol or use drugs. General instructions Take pxyx-qat-gjlkgyf and prescription medicines only as told by your health care provider. Think about joining a support group. Your health care provider may be able to recommend one. Talk with your family and loved ones about your treatment goals and about how they can help. Keep all follow-up visits. This is important. Where to find more information National [place] on Mental Illness: marisela.org National [place] of Mental Health: nimh.nih.gov Contact a health care provider if: Your symptoms get worse. You have side effects from your medicine. You have trouble sleeping. You have trouble doing daily activities. You feel unsafe in your surroundings. You are misusing substances. Get help right away if: You think about hurting yourself or you try to hurt yourself. You think about suicide. If you ever feel like you may hurt yourself or others, or have thoughts about taking your own life,get help right away. Go to your nearest emergency department or: Call your local emergency services (681 in the [place] Call a suicide crisis helpline, such as the National Suicide Prevention Lifeline at or 314 in the [place] This is open 24 hours a day. Text the Crisis Text Line at 891339 (in the [place] Summary Mixed bipolar disorder is a mental health disorder in which a person has episodes of emotional highs (hardeep), lows (depression), or both of these feelings at the same time. Bipolar disorder is a long-term illness. It is best controlled with treatment that is given on an ongoing basis, rather than only when symptoms are present. The best treatment approach is a combination of medicine, talk therapy, and methods of managing thecondition. This information is not intended to replace advice given to you by your health care provider. Make sure you discuss any questions you have with your health care provider. Document Revised: 02/01/2022 Document Reviewed: 12/28/2021 [employer] Patient Education 2022 [employer]. 08/08/2023 10:09:19 Calorie Counting for Weight Loss Calorie Counting for Weight Loss Calories are units of energy. Your body needs a certain number of calories from food to keep going throughout the day. When you eat or drink more calories than your body needs, your body stores the extra calories mostly as fat. When you eat or drink fewer calories than your body needs, your body hwang fat to get the energy it needs. Calorie counting means keeping track of how many calories you eat and drink each day. Calorie counting can be helpful if you need to lose weight. If you eat fewer calories than your body needs, you should lose weight. Ask your health care provider what a healthy weight is for you. For calorie counting to work, you will need to eat the right number of calories each day to lose a healthy amount of weight per week. A dietitian can help you figure out how many calories you need colten day and will suggest ways to reach your calorie goal. A healthy amount of weight to lose each week is usually 1 2 lb (0.5 0.9 kg). This usually means that your daily calorie intake should be reduced by 500 750 calories. Eating 1,200 1,500 calories a day can help most women lose weight. Eating 1,500 1,800 calories a day can help most men lose weight. What do I need to know about calorie counting? Work with your health care provider or dietitian to determine how many calories you should get eachday. To meet your daily calorie goal, you will need to: Find out how many calories are in each food that you would like to eat. Try to do this before you eat. Decide how much of the food you plan to eat. Keep a food log. Do this by writing down what you ate and how many calories it had. To successfully lose weight, it is important to balance calorie counting with a healthy lifestyle that includes regular activity. Where do I find calorie information? The number of calories in a food can be found on a Nutrition Facts label. If a food does not have aNutrition Facts label, try to look up the calories online or ask your dietitian for help. Remember that calories are listed per serving. If you choose to have more than one serving of a food, you will have to multiply the calories per serving by the number of servings you plan to eat. Forexample, the label on a package of bread might say that a serving size is 1 slice and that there are 90 calories in a serving. If you eat 1 slice, you will have eaten 90 calories. If you eat 2 slices, you will have eaten 180 calories. How do I keep a food log? After each time that you eat, record the following in your food log as soon as possible: What you ate. Be sure to include toppings, sauces, and other extras on the food. How much you ate. This can be measured in cups, ounces, or number of items. How many calories were in each food and drink. The total number of calories in the food you ate. Keep your food log near you, such as in a pocket-sized notebook or on an morgan or website on your mobile phone. Some programs will calculate calories for you and show you how many calories you have left to meet your daily goal. What are some portion-control tips? Know how many calories are in a serving. This will help you know how many servings you can have of a certain food. Use a measuring cup to measure serving sizes. You could also try weighing out portions on a kitchenscale. With time, you will be able to estimate serving sizes for some foods. Take time to put servings of different foods on your favorite plates or in your favorite bowls and cups so you know what a serving looks like. Try not to eat straight from a food's packaging, such as from a bag or box. Eating straight from the package makes it hard to see how much you are eating and can lead to overeating. Put the amount you would like to eat in a cup or on a plate to make sure you are eating the right portion. Use smaller plates, glasses, and bowls for smaller portions and to prevent overeating. Try not to multitask. For example, avoid watching TV or using your computer while eating. If it is time to eat, sit down at a table and enjoy your food. This will help you recognize when you are full. It will also help you be more mindful of what and how much you are eating. What are tips for following this plan? Reading food labels Check the calorie count compared with the serving size. The serving size may be smaller than what you are used to eating. Check the source of the calories. Try to choose foods that are high in protein, fiber, and vitamins, and low in saturated fat, trans fat, and sodium. Shopping Read nutrition labels while you shop. This will help you make healthy decisions about which foods to buy. Pay attention to nutrition labels for low-fat or fat-free foods. These foods sometimes have the same number of calories or more calories than the full-fat versions. They also often have added sugar, starch, or salt to make up for flavor that was removed with the fat. Make a grocery list of lower-calorie foods and stick to it. Cooking Try to cook your favorite foods in a healthier way. For example, try baking instead of frying. Use low-fat dairy products. Meal planning Use more fruits and vegetables. One-half of your plate should be fruits and vegetables. Include lean proteins, such as chicken, turkey, and fish. Lifestyle Each week, aim to do one of the followin minutes of moderate exercise, such as walking. 75 minutes of vigorous exercise, such as running. General information Know how many calories are in the foods you eat most often. This will help you calculate calorie counts faster. Find a way of tracking calories that works for you. Get creative. Try different apps or programs ifwriting down calories does not work for you. What foods should I eat? Eat nutritious foods. It is better to have a nutritious, high-calorie food, such as an avocado, than a food with few nutrients, such as a bag of potato chips. Use your calories on foods and drinks that will fill you up and will not leave you hungry soon after eating. ?Examples of foods that fill you up are nuts and nut butters, vegetables, lean proteins, and high-fiber foods such as whole grains. High-fiber foods are foods with more than 5 g of fiber per serving. Pay attention to calories in drinks. Low-calorie drinks include water and unsweetened drinks. The items listed above may not be a complete list of foods and beverages you can eat. Contact a dietitian for more information. What foods should I limit? Limit foods or drinks that are not good sources of vitamins, minerals, or protein or that are high in unhealthy fats. These include: Candy. Other sweets. Sodas, specialty coffee drinks, alcohol, and juice. The items listed above may not be a complete list of foods and beverages you should avoid. Contact a dietitian for more information. How do I count calories when eating out? Pay attention to portions. Often, portions are much larger when eating out. Try these tips to keep portions smaller: ?Consider sharing a meal instead of getting your own. ?If you get your own meal, eat only half of it. Before you start eating, ask for a container and put half of your meal into it. ?When available, consider ordering smaller portions from the menu instead of full portions. Pay attention to your food and drink choices. Knowing the way food is cooked and what is included with the meal can help you eat fewer calories. ?If calories are listed on the menu, choose the lower-calorie options. ?Choose dishes that include vegetables, fruits, whole grains, low-fat dairy products, and lean proteins. ?Choose items that are boiled, broiled, grilled, or steamed. Avoid items that are buttered, battered, fried, or served with cream sauce. Items labeled as crispy are usually fried, unless stated otherwise. ?Choose water, low-fat milk, unsweetened iced tea, or other drinks without added sugar. If you wantan alcoholic beverage, choose a lower-calorie option, such as a glass of wine or light beer. ?Ask for dressings, sauces, and syrups on the side. These are usually high in calories, so you should limit the amount you eat. ?If you want a salad, choose a garden salad and ask for grilled meats. Avoid extra toppings such asbacon, cheese, or fried items. Ask for the dressing on the side, or ask for olive oil and vinegar or lemon to use as dressing. Estimate how many servings of a food you are given. Knowing serving sizes will help you be aware ofhow much food you are eating at restaurants. Where to find more information Centers for Disease Control and Prevention: www.cdc.gov [place] Department of Agriculture: myplate.gov Summary Calorie counting means keeping track of how many calories you eat and drink each day. If you eat fewer calories than your body needs, you should lose weight. A healthy amount of weight to lose per week is usually 1 2 lb (0.5 0.9 kg). This usually means reducing your daily calorie intake by 500 750 calories. The number of calories in a food can be found on a Nutrition Facts label. If a food does not have aNutrition Facts label, try to look up the calories online or ask your dietitian for help. Use smaller plates, glasses, and bowls for smaller portions and to prevent overeating. Use your calories on foods and drinks that will fill you up and not leave you hungry shortly after a meal. This information is not intended to replace advice given to you by your health care provider. Make sure you discuss any questions you have with your health care provider. Document Revised: 08/18/2020 Document Reviewed: 08/18/2020 [employer] Patient Education 2022 [employer]. 08/08/2023 10:09:16 BMI for Adults BMI for Adults What is BMI? Body mass index (BMI) is a number that is calculated from a person's weight and height. BMI can help estimate how much of a person's weight is composed of fat. BMI does not measure body fat directly.Rather, it is an alternative to procedures that directly measure body fat, which can be difficult and expensive. BMI can help identify people who may be at higher risk for certain medical problems. What are BMI measurements used for? BMI is used as a screening tool to identify possible weight problems. It helps determine whether a person is obese, overweight, a healthy weight, or underweight. BMI is useful for: Identifying a weight problem that may be related to a medical condition or may increase the risk for medical problems. Promoting changes, such as changes in diet and exercise, to help reach a healthy weight. BMI screening can be repeated to see if these changes are working. How is BMI calculated? BMI involves measuring your weight in relation to your height. Both height and weight are measured,and the BMI is calculated from those numbers. This can be done either in [place] ([place] or metric measurements. Note that charts and online BMI calculators are available to help you find your BMI quickly and easily without having to do these calculations yourself. To calculate your BMI in [place] measurements: 1.Measure your weight in pounds (lb). 2.Multiply the number of pounds by 703. For example, for a person who weighs 180 lb, multiply that number by 703, which equals 126,540. 3.Measure your height in inches. Then multiply that number by itself to get a measurement called inches squared. For example, for a person who is 70 inches tall, the inches squared measurement is 70 inches x 70inches, which equals 4,900 inches squared. 4.Divide the total from step 2 (number of lb x 703) by the total from step 3 (inches squared): 126,540 4,900 = 25.8. This is your BMI. To calculate your BMI in metric measurements: 1.Measure your weight in kilograms (kg). 2.Measure your height in meters (m). Then multiply that number by itself to get a measurement called meters squared. For example, for a person who is 1.75 m tall, the meters squared measurement is 1.75 m x 1.75 m, which is equal to 3.1 meters squared. 3.Divide the number of kilograms (your weight) by the meters squared number. In this example: 70 3.1 = 22.6. This is your BMI. What do the results mean? BMI charts are used to identify whether you are underweight, normal weight, overweight, or obese. The following guidelines will be used: Underweight: BMI less than 18.5. Normal weight: BMI between 18.5 and 24.9. Overweight: BMI between 25 and 29.9. Obese: BMI of 30 or above. Keep these notes in mind: Weight includes both fat and muscle, so someone with a muscular build, such as an athlete, may havea BMI that is higher than 24.9. In cases like these, BMI is not an accurate measure of body fat. To determine if excess body fat is the cause of a BMI of 25 or higher, further assessments may needto be done by a health care provider. BMI is usually interpreted in the same way for men and women. Where to find more information For more information about BMI, including tools to quickly calculate your BMI, go to these websites: Centers for Disease Control and Prevention: www.cdc.gov [place] [employer]: www.heart.org National Heart, Lung, and Blood [place]: www.nhlbi.nih.gov Summary Body mass index (BMI) is a number that is calculated from a person's weight and height. BMI may help estimate how much of a person's weight is composed of fat. BMI can help identify thosewho may be at higher risk for certain medical problems. BMI can be measured using [place] measurements or metric measurements. BMI charts are used to identify whether you are underweight, normal weight, overweight, or obese. This information is not intended to replace advice given to you by your health care provider. Make sure you discuss any questions you have with your health care provider. Document Revised: 03/30/2020 Document Reviewed: 02/05/2020 [employer] Patient Education 2022 [employer]. Follow Up Care 05/30/2023 08:55:36 With:Linda Lutz [facility], MED Address: [address] [address] [address]- When:Within 1 Month(s) Comments:weight loss [facility] 12-05-2023 Hospital Discharge instructions Follow Up Care 06/25/2023 13:34:22 With:Dyan Ernandez Address: [facility] [place] [address] [phone] Business (1) When: Unknown Comments:Follow observation for now for the elevated total protein.Defer managment of the fatty liver to cognos.Start taking oral iron Ferrous sulfate 325 mg once daily.labs in 6 months: Myeloma labs, CBC with differential, CMP, iron studies, B12 and folate in 6 months.RTC in 6 months. [facility]11-08-2023 Hospital Discharge instructions Patient Education 05/29/2023 09:49:37 Health Maintenance, Female Health Maintenance, Female Adopting a healthy lifestyle and getting preventive care are important in promoting health and wellness. Ask your health care provider about: The right schedule for you to have regular tests and exams. Things you can do on your own to prevent diseases and keep yourself healthy. What should I know about diet, weight, and exercise? Eat a healthy diet Eat a diet that includes plenty of vegetables, fruits, low-fat dairy products, and lean protein. Do not eat a lot of foods that are high in solid fats, added sugars, or sodium. Maintain a healthy weight Body mass index (BMI) is used to identify weight problems. It estimates body fat based on height and weight. Your health care provider can help determine your BMI and help you achieve or maintain a healthy weight. Get regular exercise Get regular exercise. This is one of the most important things you can do for your health. Most adults should: Exercise for at least 150 minutes each week. The exercise should increase your heart rate and make you sweat (moderate-intensity exercise). Do strengthening exercises at least twice a week. This is in addition to the moderate-intensity exercise. Spend less time sitting. Even light physical activity can be beneficial. Watch cholesterol and blood lipids Have your blood tested for lipids and cholesterol at 20 years of age, then have this test every 5 years. Have your cholesterol levels checked more often if: Your lipid or cholesterol levels are high. You are older than 40 years of age. You are at high risk for heart disease. What should I know about cancer screening? Depending on your health history and family history, you may need to have cancer screening at various ages. This may include screening for: Breast cancer. Cervical cancer. Colorectal cancer. Skin cancer. Lung cancer. What should I know about heart disease, diabetes, and high blood pressure? Blood pressure and heart disease High blood pressure causes heart disease and increases the risk of stroke. This is more likely to develop in people who have high blood pressure readings or are overweight. Have your blood pressure checked: ?Every 3 5 years if you are 18 39 years of age. ?Every year if you are 40 years old or older. Diabetes Have regular diabetes screenings. This checks your fasting blood sugar level. Have the screening done: Once every three years after age 40 if you are at a normal weight and have a low risk for diabetes. More often and at a younger age if you are overweight or have a high risk for diabetes. What should I know about preventing infection? Hepatitis B If you have a higher risk for hepatitis B, you should be screened for this virus. Talk with your health care provider to find out if you are at risk for hepatitis B infection. Hepatitis C Testing is recommended for: Everyone born from 1945 through 1965. Anyone with known risk factors for hepatitis C. Sexually transmitted infections (STIs) Get screened for STIs, including gonorrhea and chlamydia, if: ?You are sexually active and are younger than 24 years of age. ?You are older than 24 years of age and your health care provider tells you that you are at risk for this type of infection. ?Your sexual activity has changed since you were last screened, and you are at increased risk for chlamydia or gonorrhea. Ask your health care provider if you are at risk. Ask your health care provider about whether you are at high risk for HIV. Your health care providermay recommend a prescription medicine to help prevent HIV infection. If you choose to take medicineto prevent HIV, you should first get tested for HIV. You should then be tested every 3 months for as long as you are taking the medicine. If you are about to stop having your period (premenopausal) and you may become , seek counseling before you get . Take 400 to 800 micrograms (mcg) of folic acid every day if you become . Ask for control (contraception) if you want to prevent . Osteoporosis and menopause Osteoporosis is a disease in which the bones lose minerals and strength with aging. This can resultin bone fractures. If you are 65 years old or older, or if you are at risk for osteoporosis and fractures, ask your health care provider if you should: Be screened for bone loss. Take a calcium or vitamin D supplement to lower your risk of fractures. Be given hormone replacement therapy (HRT) to treat symptoms of menopause. Follow these instructions at home: Alcohol use Do not drink alcohol if: ?Your health care provider tells you not to drink. ?You are , may be , or are planning to become . If you drink alcohol: ?Limit how much you have to: ?0 1 drink a day. ?Know how much alcohol is in your drink. In the [place] one drink equals one 12 oz bottle of beer (355 mL), one 5 oz glass of wine (148 mL), or one 1 oz glass of hard liquor (44 mL). Lifestyle Do not use any products that contain nicotine or tobacco. These products include cigarettes, chewing tobacco, and vaping devices, such as e-cigarettes. If you need help quitting, ask your health careprovider. Do not use street drugs. Do not share needles. Ask your health care provider for help if you need support or information about quitting drugs. General instructions Schedule regular health, dental, and eye exams. Stay current with your vaccines. Tell your health care provider if: ?You often feel depressed. ?You have ever been abused or do not feel safe at home. Summary Adopting a healthy lifestyle and getting preventive care are important in promoting health and wellness. Follow your health care provider's instructions about healthy diet, exercising, and getting tested or screened for diseases. Follow your health care provider's instructions on monitoring your cholesterol and blood pressure. This information is not intended to replace advice given to you by your health care provider. Make sure you discuss any questions you have with your health care provider. Document Revised: 11/27/2021 Document Reviewed: 11/27/2021 [employer] Patient Education 2022 [employer]. 05/29/2023 09:49:34 Cough, Adult Cough, Adult Coughing is a reflex that clears your throat and your airways (respiratory system). Coughing helps to heal and protect your lungs. It is normal to cough occasionally, but a cough that happens with other symptoms or lasts a long time may be a sign of a condition that needs treatment. An acute cough may only last 2 3 weeks, while a chronic cough may last 8 or more weeks. Coughing is commonly caused by: Infection of the respiratory systemby viruses or bacteria. Breathing in substances that irritate your lungs. Allergies. Asthma. Mucus that runs down the back of your throat (postnasal drip). Smoking. Acid backing up from the stomach into the esophagus (gastroesophageal reflux). Certain medicines. Chronic lung problems. Other medical conditions such as heart failure or a blood clot in the lung (pulmonary embolism). Follow these instructions at home: Medicines Take godo-rtt-fzwvdtk and prescription medicines only as told by your health care provider. Talk with your health care provider before you take a cough suppressant medicine. Lifestyle Avoid cigarette smoke. Do not use any products that contain nicotine or tobacco, such as cigarettes, e-cigarettes, and chewing tobacco. If you need help quitting, ask your health care provider. Drink enough fluid to keep your urine pale yellow. Avoid caffeine. Do not drink alcohol if your health care provider tells you not to drink. General instructions Pay close attention to changes in your cough. Tell your health care provider about them. Always cover your mouth when you cough. Avoid things that make you cough, such as perfume, candles, cleaning products, or campfire or tobacco smoke. If the air is dry, use a cool mist vaporizer or humidifier in your bedroom or your home to help loosen secretions. If your cough is worse at night, try to sleep in a semi-upright position. Rest as needed. Keep all follow-up visits as told by your health care provider. This is important. Contact a health care provider if you: Have new symptoms. Cough up pus. Have a cough that does not get better after 2 3 weeks or gets worse. Cannot control your cough with cough suppressant medicines and you are losing sleep. Have pain that gets worse or pain that is not helped with medicine. Have a fever. Have unexplained weight loss. Have night sweats. Get help right away if: You cough up blood. You have difficulty breathing. Your heartbeat is very fast. These symptoms may represent a serious problem that is an emergency. Do not wait to see if the symptoms will go away. Get medical help right away. Call your local emergency services (911 in the [place] Do not drive yourself to the hospital. Summary Coughing is a reflex that clears your throat and your airways. It is normal to cough occasionally, but a cough that happens with other symptoms or lasts a long time may be a sign of a condition that needs treatment. Take zlkh-dyk-ngxgrpc and prescription medicines only as told by your health care provider. Always cover your mouth when you cough. Contact a health care provider if you have new symptoms or a cough that does not get better after 23 weeks or gets worse. This information is not intended to replace advice given to you by your health care provider. Make sure you discuss any questions you have with your health care provider. Document Revised: 07/27/2019 Document Reviewed: 07/27/2019 [employer] Patient Education 2022 [employer]. 05/29/2023 09:49:32 Mixed Bipolar Disorder Mixed Bipolar Disorder Mixed bipolar disorder is a mental health disorder in which a person has episodes of emotional highs (hardeep), lows (depression), or both of these feelings at the same time. People with this disorder have very big mood changes (mood swings) that happen quickly on a regular basis. These episodes may be severe enough to cause problems with relationships, school, or work. In some cases, they can cause the person to be unsafe, and the person may need to stay in a hospital. What are the causes? The cause of this condition is not known. What increases the risk? The following factors may make you more likely to develop this condition: Having a family history of the disorder. Misusing substances such as alcohol or drugs. Having an anxiety disorder. Having another illness, such as heart disease or thyroid disease. What are the signs or symptoms? Symptoms of this condition include having episodes of hardeep or depression. Sometimes, symptoms of both happen at the same time. For instance, you may feel sad and full of energy at the same time. Youmay have mood swings almost every day. Symptoms of hardeep may include: Very high self-esteem or self-confidence. Being unusually talkative, or feeling a need to keep talking. Speech may be very fast. It may seem like you cannot stop talking. Racing thoughts or constant talking, with quick shifts between topics that may or may not be related (flight of ideas). Being less able or more able to focus. Increased purposeful activity, such as work, study, or social activity. Increased nonproductive activity. This could be pacing, squirming and fidgeting, or finger and toe tapping. Impulsive behavior and poor judgment. These may lead to high-risk activities, such as having unprotected sex or spending a lot of money. Symptoms of depression may include: Feeling sad, hopeless, or helpless. Lack of feeling or caring about anything. Not being able to enjoy things that you used to enjoy. Trouble concentrating or remembering. Trouble making decisions. Thoughts of , or wanting to harm yourself. How is this diagnosed? This condition may be diagnosed based on: Your symptoms, your medical history, and a mental health (psychiatric) assessment. Your health careprovider will ask about your emotional episodes. A physical exam. This is done to rule out any health problems that may be causing symptoms. Your health care provider will also ask about your alcohol and drug use. How is this treated? Bipolar disorder is a long-term (chronic) illness. It is best controlled with treatment that is given on an ongoing basis, rather than only when symptoms are present. A combination of treatments is best. Treatment may include: Medicines. These can be prescribed by a provider who specializes in treating mental health disorders (psychiatrist). ?Medicines called mood stabilizers, antipsychotics, or antidepressants may be prescribed. ?If symptoms occur while one type of medicine is taken, other medicines may be added. Talk therapy (psychotherapy). Some forms of talk therapy, such as cognitive behavioral therapy (CBT), can provide support, education, and guidance. Methods of managing your condition, such as journaling or relaxation exercises. These may include: ?Yoga. ?Meditation. ?Deep breathing. Lifestyle changes, such as: ?Avoiding alcohol and drug use. ?Exercising regularly. ?Getting plenty of sleep. ?Making healthy eating choices. In severe cases, if other treatments do not work, a procedure called electroconvulsive therapy (ECT) may be used. In ECT, short electrical pulses are sent to the brain through the scalp. This is doneto change the brain chemicals that send messages between brain cells (neurotransmitters). Follow these instructions at home: Activity Return to your normal activities as told by your health care provider. Find activities that you enjoy, and make time to do them. Get regular exercise. Lifestyle Follow a set schedule for eating and sleeping. Eat a balanced diet that includes fresh fruits and vegetables, whole grains, low-fat dairy products, and lean meat. Get 7 8 or more hours of sleep each night. Avoid using products that contain nicotine or tobacco. If you need help quitting, ask your health care provider. Do not drink alcohol or use drugs. General instructions Take myls-prs-srvmirq and prescription medicines only as told by your health care provider. Think about joining a support group. Your health care provider may be able to recommend one. Talk with your family and loved ones about your treatment goals and about how they can help. Keep all follow-up visits. This is important. Where to find more information National [place] on Mental Illness: marisela.org National [place] of Mental Health: nimh.nih.gov Contact a health care provider if: Your symptoms get worse. You have side effects from your medicine. You have trouble sleeping. You have trouble doing daily activities. You feel unsafe in your surroundings. You are misusing substances. Get help right away if: You think about hurting yourself or you try to hurt yourself. You think about suicide. If you ever feel like you may hurt yourself or others, or have thoughts about taking your own life,get help right away. Go to your nearest emergency department or: Call your local emergency services (911 in the [place] Call a suicide crisis helpline, such as the National Suicide Prevention Lifeline at or 101 in the [place] This is open 24 hours a day. Text the Crisis Text Line at 396374 (in the [place] Summary Mixed bipolar disorder is a mental health disorder in which a person has episodes of emotional highs (hardeep), lows (depression), or both of these feelings at the same time. Bipolar disorder is a long-term illness. It is best controlled with treatment that is given on an ongoing basis, rather than only when symptoms are present. The best treatment approach is a combination of medicine, talk therapy, and methods of managing thecondition. This information is not intended to replace advice given to you by your health care provider. Make sure you discuss any questions you have with your health care provider. Document Revised: 02/01/2022 Document Reviewed: 12/28/2021 [employer] Patient Education 2022 [employer]. 05/29/2023 09:49:26 Hypertension, Adult Hypertension, Adult High blood pressure (hypertension) is when the force of blood pumping through the arteries is too strong. The arteries are the blood vessels that carry blood from the heart throughout the body. Hypertension forces the heart to work harder to pump blood and may cause arteries to become narrow or stiff. Untreated or uncontrolled hypertension can lead to a heart attack, heart failure, a stroke, kidney disease, and other problems. A blood pressure reading consists of a higher number over a lower number. Ideally, your blood pressure should be below 120/80. The first ( top ) number is called the systolic pressure. It is a measure of the pressure in your arteries as your heart beats. The second ( bottom ) number is called the diastolic pressure. It is a measure of the pressure in your arteries as the heart relaxes. What are the causes? The exact cause of this condition is not known. There are some conditions that result in high bloodpressure. What increases the risk? Certain factors may make you more likely to develop high blood pressure. Some of these risk factorsare under your control, including: Smoking. Not getting enough exercise or physical activity. Being overweight. Having too much fat, sugar, calories, or salt (sodium) in your diet. Drinking too much alcohol. Other risk factors include: Having a personal history of heart disease, diabetes, high cholesterol, or kidney disease. Stress. Having a family history of high blood pressure and high cholesterol. Having obstructive sleep apnea. Age. The risk increases with age. What are the signs or symptoms? High blood pressure may not cause symptoms. Very high blood pressure (hypertensive crisis) may cause: Headache. Fast or irregular heartbeats (palpitations). Shortness of breath. Nosebleed. Nausea and vomiting. Vision changes. Severe chest pain, dizziness, and seizures. How is this diagnosed? This condition is diagnosed by measuring your blood pressure while you are seated, with your arm resting on a flat surface, your legs uncrossed, and your feet flat on the floor. The cuff of the bloodpressure monitor will be placed directly against the skin of your upper arm at the level of your heart. Blood pressure should be measured at least twice using the same arm. Certain conditions can cause a difference in blood pressure between your right and left arms. If you have a high blood pressure reading during one visit or you have normal blood pressure with other risk factors, you may be asked to: Return on a different day to have your blood pressure checked again. Monitor your blood pressure at home for 1 week or longer. If you are diagnosed with hypertension, you may have other blood or imaging tests to help your health care provider understand your overall risk for other conditions. How is this treated? This condition is treated by making healthy lifestyle changes, such as eating healthy foods, exercising more, and reducing your alcohol intake. You may be referred for counseling on a healthy diet and physical activity. Your health care provider may prescribe medicine if lifestyle changes are not enough to get your blood pressure under control and if: Your systolic blood pressure is above 130. Your diastolic blood pressure is above 80. Your personal target blood pressure may vary depending on your medical conditions, your age, and other factors. Follow these instructions at home: Eating and drinking Eat a diet that is high in fiber and potassium, and low in sodium, added sugar, and fat. An exampleof this eating plan is called the DASH diet. DASH stands for Dietary Approaches to Stop Hypertension. To eat this way: ?Eat plenty of fresh fruits and vegetables. Try to fill one half of your plate at each meal with fruits and vegetables. ?Eat whole grains, such as whole-wheat pasta, brown rice, or whole-grain bread. Fill about one fourth of your plate with whole grains. ?Eat or drink low-fat dairy products, such as skim milk or low-fat yogurt. ?Avoid fatty cuts of meat, processed or cured meats, and poultry with skin. Fill about one fourth of your plate with lean proteins, such as fish, chicken without skin, beans, eggs, or tofu. ?Avoid pre-made and processed foods. These tend to be higher in sodium, added sugar, and fat. Reduce your daily sodium intake. Many people with hypertension should eat less than 1,500 mg of sodium a day. Do not drink alcohol if: ?Your health care provider tells you not to drink. ?You are , may be , or are planning to become . If you drink alcohol: ?Limit how much you have to: ?0 1 drink a day for women. ?0 2 drinks a day for men. ?Know how much alcohol is in your drink. In the [place] one drink equals one 12 oz bottle of beer (355 mL), one 5 oz glass of wine (148 mL), or one 1 oz glass of hard liquor (44 mL). Lifestyle Work with your health care provider to maintain a healthy body weight or to lose weight. Ask what an ideal weight is for you. Get at least 30 minutes of exercise that causes your heart to beat faster (aerobic exercise) most days of the week. Activities may include walking, swimming, or biking. Include exercise to strengthen your muscles (resistance exercise), such as Pilates or lifting weights, as part of your weekly exercise routine. Try to do these types of exercises for 30 minutes at least 3 days a week. Do not use any products that contain nicotine or tobacco. These products include cigarettes, chewing tobacco, and vaping devices, such as e-cigarettes. If you need help quitting, ask your health careprovider. Monitor your blood pressure at home as told by your health care provider. Keep all follow-up visits. This is important. Medicines Take bwiw-gpp-wokvdtv and prescription medicines only as told by your health care provider. Follow directions carefully. Blood pressure medicines must be taken as prescribed. Do not skip doses of blood pressure medicine. Doing this puts you at risk for problems and can makethe medicine less effective. Ask your health care provider about side effects or reactions to medicines that you should watch for. Contact a health care provider if you: Think you are having a reaction to a medicine you are taking. Have headaches that keep coming back (recurring). Feel dizzy. Have swelling in your ankles. Have trouble with your vision. Get help right away if you: Develop a severe headache or confusion. Have unusual weakness or numbness. Feel faint. Have severe pain in your chest or abdomen. Vomit repeatedly. Have trouble breathing. These symptoms may be an emergency. Get help right away. Call 911. Do not wait to see if the symptoms will go away. Do not drive yourself to the hospital. Summary Hypertension is when the force of blood pumping through your arteries is too strong. If this condition is not controlled, it may put you at risk for serious complications. Your personal target blood pressure may vary depending on your medical conditions, your age, and other factors. For most people, a normal blood pressure is less than 120/80. Hypertension is treated with lifestyle changes, medicines, or a combination of both. Lifestyle changes include losing weight, eating a healthy, low-sodium diet, exercising more, and limiting alcohol. This information is not intended to replace advice given to you by your health care provider. Make sure you discuss any questions you have with your health care provider. Document Revised: 05/15/2022 Document Reviewed: 05/15/2022 Smart Surgical Patient Education 2022 [employer]. 05/29/2023 09:49:24 Form - Blood Pressure Record Sheet Blood Pressure Record Sheet To take your blood pressure, you will need a blood pressure machine. You may be prescribed one, or you can buy a blood pressure machine (blood pressure monitor) at your clinic, drug store, or online.When choosing one, look for these features: An automatic monitor that has an arm cuff. A cuff that wraps snugly, but not too tightly, around your upper arm. You should be able to fit only one finger between your arm and the cuff. A device that stores blood pressure reading results. Do not choose a monitor that measures your blood pressure from your wrist or finger. Follow your health care provider's instructions for how to take your blood pressure. To use this form: Get one reading in the morning (a.m.) before you take any medicines. Get one reading in the evening (p.m.) before supper. Take at least two readings with each blood pressure check. This makes sure the results are correct.Wait 1 2 minutes between measurements. Write down the results in the spaces on this form. Repeat this once a week, or as told by your health care provider. Make a follow-up appointment with your health care provider to discuss the results. Blood pressure log Date: a.m. (1st reading) (2nd reading) p.m. (1st reading) (2nd reading) Date: a.m. (1st reading) (2nd reading) p.m. (1st reading) (2nd reading) Date: a.m. (1st reading) (2nd reading) p.m. (1st reading) (2nd reading) Date: a.m. (1st reading) (2nd reading) p.m. (1st reading) (2nd reading) Date: a.m. (1st reading) (2nd reading) p.m. (1st reading) (2nd reading) This information is not intended to replace advice given to you by your health care provider. Make sure you discuss any questions you have with your health care provider. Document Revised: 03/22/2022 Document Reviewed: 03/22/2022 Smart Surgical Patient Education 2022 [employer]. Follow Up Care 05/27/2023 09:24:41 With:Brandon GARDINER, ELEN Clements, MED Address: [address] [place], [place] [address]- When:Within 1 Month(s) Comments:f/u labs, HTN, cough [facility] 08-29-2023 NoteHNO ID: [id number] Author: Guerda Garcia Service: ? Author Type: ? Type: Progress Notes Filed: 03/19/2023 5:42 PM Note Text: Patient was scheduled for 6 month virtual follow up with Dr. Hill on [facility]08-24-2023 NoteHNO ID: [id number] Author: Fátima Williamson V, MD Service: ? Author Type: Physician Type: Progress Notes Filed: 03/14/2023 9:51 AM Note Text: THIS NOTE WAS CARRIED FORWARD FROM THE VISIT WITH me in 2022 AND ADDENDED APPROPRIATE TO REFLECT TODAY'S VISIT WITH HISTORY, EXAM, ROS, DATA REVIEWED AND ASSESSMENT AND PLAN. Patient is here for followup of hypothyroidism and hyperandrogenemia. HISTORY OF PRESENT ILLNESS: Hypothyroidism: Diagnosed in 2017. Taking levoxyl 125 mcg daily. She takes first thing in morning on empty stomach by itself and waits at least 60 minutes before eating or drinking and taking other meds. She taking any other medications at night. Energy has been a little low. Notes her sleep is not great. 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 On metformin and spironolactone. Acne stable. Denies hirsutism. Continues to have thin hair- unchanged, She did trial with rogaine and ketoconazole shampoo but did not feel these helped. Impaired glucose tolerance: Patient reports having GTT done 2-3 years ago and was told this was abnormal and started on metformin. Social history: Denies tobacco use. INTERVAL HPI (November 21, 2022 ): INTERVAL HPI (March 14, 2023 ): Has been doing well Periods every 35 days Exercising in gym Low carb diet Taking synthroid and metformin appropriately No hirsutism Has been gradually losing weight PAST MEDICAL HISTORY Diagnosis Date Acquired hypothyroidism 01/21/2020 Bipolar 1 disorder (HCC) 01/21/2020 VIDEO EXAM: (if completed, performed via video enabled technology) GENERAL: alert and appropriate, in no distress, well-hydrated, well nourished, and happy, smiling, interactive LABS AND IMAGING: Component Latest Ref Rng AND Units 06/18/2020 08/08/2020 TSH 0.270 - 4.200 uU/mL 0.071 (L) 0.525 Free T4 0.9 - 1.7 ng/dL 1.7 Hemoglobin A1C (%) Date Value 06/18/2020 5.2 No results found for: CHOL , HDL , LDL , TG TSH Date Value Ref Range Status 11/22/2022 2.290 0.270 - 4.200 mIU/L Final Comment: If the patient is , TSH reference range varies by gestational period: First Trimester (weeks 9-12): 0.180-2.990 mIU/L Second Trimester: 0.110-3.980 mIU/L Third Trimester: 0.480-4.710 mIU/L Charanjit Zamora et al. A Practical Approach for the Verifications and Determination of Site- and Trimester-Specific Reference Intervals for Thyroid Function tests in . Thyroid, 2019:29:3:412-420. Mert Garcia et al. 2017 Guidelines of the [place] Thyroid Association for the Diagnosis and Management of Thyroid Disease during and the . Thyroid, 2017:27:3:315-389. Creatinine Date Value Ref Range Status 08/08/2021 0.80 0.58 - 0.96 mg/dL Final 08/08/2020 0.94 0.58 - 0.96 mg/dL Final 06/18/2020 0.84 0.58 - 0.96 mg/dL Final 02/01/2020 0.68 0.58 - 0.96 mg/dL Final Protein, Urine (mg/dL) Date Value 01/07/2013 neg IMPRESSION AND RECOMMENDATIONS: 1. Acquired hypothyroidism Ct currrent dose - TSH BLD; Future - T4 FREE/FREE THYROX; Future 2. Hyperandrogenemia Continue metformin On progesterone IUD currently. - COMP METABOLIC PANEL; Future Follow up in 6 months Fátima Williamson MD Answers submitted by the patient for this visit: Core Review of Systems (Submitted on 03/08/2023) Fever : No Night Sweats: No Recent Unintentional Weight Change: No Nasal Congestion: Yes Hearing Loss: No Vision Disturbance: No A Cough: No Difficulty Breathing?: No Chest Pain: No Irregular Heart Beat: No Leg Swelling: No Nausea: No Diarrhea: No Black Tarry Stools: No Difficulty Urinating?: No Awaken at Night More Than Once to Urinate?: No Joint Pain or Stiffness: No Muscle Aches: No Leg or Foot Discomfort at Night?: No A Rash: No Dizziness: No Headaches: No Memory Loss: No Seizures: [facility]08-24-2023 History of Present illness Narrative* Fátima Williamson V, MD - 03/14/2023 9:32 AM EDT THIS NOTE WAS CARRIED FORWARD FROM THE VISIT WITH me in 2022 AND ADDENDED APPROPRIATE TO REFLECTTODAY'S VISIT WITH HISTORY, EXAM, ROS, DATA REVIEWED AND ASSESSMENT AND PLAN. Patient is here for followup of hypothyroidism and hyperandrogenemia. HISTORY OF PRESENT ILLNESS: Hypothyroidism: Diagnosed in 2017. Taking levoxyl 125 mcg daily. She takes first thing in morning on empty stomach by itself and waits at least 60 minutes before eating or drinking and taking other meds. She taking any other medications at night. Energy has been a little low. Notes her sleep is not great. 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 On metformin and spironolactone. Acne stable. Denies hirsutism. Continues to have thin hair- unchanged, She did trial with rogaine and ketoconazole shampoo but did not feel these helped. Impaired glucose tolerance: Patient reports having GTT done 2-3 years ago and was told this was abnormal and started on metformin. Social history: Denies tobacco use. INTERVAL HPI (November 21, 2022 ): INTERVAL HPI (March 14, 2023 ): Has been doing well Periods every 35 days Exercising in gym Low carb diet Taking synthroid and metformin appropriately No hirsutism Has been gradually losing weight PAST MEDICAL HISTORY Diagnosis Date Acquired hypothyroidism 01/21/2020 Bipolar 1 disorder (HCC) 01/21/2020 VIDEO EXAM: (if completed, performed via video enabled technology) GENERAL: alert and appropriate, in no distress, well-hydrated, well nourished, and happy, smiling, interactive LABS AND IMAGING: Component Latest Ref Rng & Units 06/18/2020 08/08/2020 TSH 0.270 - 4.200 uU/mL 0.071 (L) 0.525 Free T4 0.9 - 1.7 ng/dL 1.7 Hemoglobin A1C (%) Date Value 06/18/2020 5.2 No results found for: CHOL , HDL , LDL , TG TSH Date Value Ref Range Status 11/22/2022 2.290 0.270 - 4.200 mIU/L Final Comment: If the patient is , TSH reference range varies by gestational period: First Trimester (weeks 9-12): 0.180-2.990 mIU/L Second Trimester: 0.110-3.980 mIU/L Third Trimester: 0.480-4.710 mIU/L Charanjit Zamora et al. A Practical Approach for the Verifications and Determination of Site- and Trimester-Specific Reference Intervals for Thyroid Function tests in . Thyroid, 2019:29:3:412-420.Mert Garcia et al. 2017 Guidelines of the [place] Thyroid Association for the Diagnosis and Management of Thyroid Disease during and the . Thyroid, 2017:27:3:315-389. Creatinine Date Value Ref Range Status 08/08/2021 0.80 0.58 - 0.96 mg/dL Final 08/08/2020 0.94 0.58 - 0.96 mg/dL Final 06/18/2020 0.84 0.58 - 0.96 mg/dL Final 02/01/2020 0.68 0.58 - 0.96 mg/dL Final Protein, Urine (mg/dL) Date Value 01/07/2013 neg IMPRESSION AND RECOMMENDATIONS: 1. Acquired hypothyroidism Ct currrent dose - TSH BLD; Future - T4 FREE/FREE THYROX; Future 2. Hyperandrogenemia Continue metformin On progesterone IUD currently. - COMP METABOLIC PANEL; Future Follow up in 6 months Fátima Williamson MD Answers submitted by the patient for this visit: Core Review of Systems (Submitted on 03/08/2023) Fever : No Night Sweats: No Recent Unintentional Weight Change: No Nasal Congestion: Yes Hearing Loss: No Vision Disturbance: No A Cough: No Difficulty Breathing?: No Chest Pain: No Irregular Heart Beat: No Leg Swelling: No Nausea: No Diarrhea: No Black Tarry Stools: No Difficulty Urinating?: No Awaken at Night More Than Once to Urinate?: No Joint Pain or Stiffness: No Muscle Aches: No Leg or Foot Discomfort at Night?: No A Rash: No Dizziness: No Headaches: No Memory Loss: No Seizures: No documented in [facility] History of Present illness Narrative* Colin Gr, RD - 01/07/2023 7:56 AM EDT [facility] Medical Nutrition Therapy Follow up Visit Type: I have communicated my name and active licensure. The patient's identity and physical location were verified at the time of this visit. Either the patient or their legal employee representative has been informed of the risks and benefits of -- and alternatives to -- treatment through a remote evaluation and consents to proceed with the evaluation remotely. Nutritional Visit: WEIGHT MANAGEMENT 1 month MNT follow up Medical Diagnosis: Overweight/Obesity NUTRITION DIAGNOISIS STATEMENT:Has Not Changed From Last Encounter Date:11/26/2022 NUTRITION REASSESSMENT: DIET HISTORY: Breakfast: skips 3 days or oatmeal or yogurt or pro shake or pro bar, water Lunch: when is home and cooks; grilled meats like burgers or steak, baked potato or corn, broccoli Dinner: same as lunch; pro, starch, veg if at home, but if at [employer] during the week may just snack instead of eating a dinner- cheese, deli meat, yogurt or fruit Snack: cheese, deli meat, yogurt or fruit Beverages/Fluids: water, sugary beverage Last 3 Encounter Wt Readings: Date: Wt: 05/23/2020 96 kg (211 lb 11.2 oz) 08/08/2021 117.9 kg (260 lb) 11/21/2022 120.7 kg (266 lb) pt states this weight was entered incorrectly 11/26/2022 102.5 kg (226 lb) 01/07/2023 97.5 kg (215 lb) BMI: 36 Weight Loss to Date: 11# (4.8%) Labs: Glucose (mg/dL) Date Value 08/08/2021 121 Potassium (mmol/L) Date Value 08/08/2021 4.4 Sodium (mmol/L) Date Value 08/08/2021 141 Chloride (mmol/L) Date Value 08/08/2021 104 CO2 (mmol/L) Date Value 08/08/2021 24 Creatinine (mg/dL) Date Value 08/08/2021 0.80 BUN (mg/dL) Date Value 08/08/2021 12 Anion Gap (mmol/L) Date Value 08/08/2021 13 Calcium (mg/dL) Date Value 08/08/2021 9.5 Lab Results Component Value Date HBA1C 5.2 06/18/2020 No results found for: CHOL, HDL, LDL, TG Glucose (mg/dL) Date Value 08/08/2021 121 Potassium (mmol/L) Date Value 08/08/2021 4.4 Sodium (mmol/L) Date Value 08/08/2021 141 Chloride (mmol/L) Date Value 08/08/2021 104 CO2 (mmol/L) Date Value 08/08/2021 24 Creatinine (mg/dL) Date Value 08/08/2021 0.80 BUN (mg/dL) Date Value 08/08/2021 12 Anion Gap (mmol/L) Date Value 08/08/2021 13 Calcium (mg/dL) Date Value 08/08/2021 9.5 Protein, Total (g/dL) Date Value 08/08/2021 7.9 Albumin (g/dL) Date Value 08/08/2021 4.3 Bilirubin, Total (mg/dL) Date Value 08/08/2021 0.2 Alkaline Phosphatase (U/L) Date Value 08/08/2021 110 AST (U/L) Date Value 08/08/2021 22 ALT (U/L) Date Value 08/08/2021 30 GOAL Review from Last Encounter Date:11/26/2022. Continue to track food intake and track activity (sometimes met) Follow low carb Mediterranean guidelines limiting carbs to 30-45 grams per meal coming from high fibrous, high quality sources when possible (sometimes met) Consider protein shake as meal replacement if appetite is low to prevent skipping completely and ensure adequate daily calories and pro are being met for weight loss (met) Balance meals and snacks with protein, fiber and healthy fats (sometimes met) RESPONSE: in progress and partially met BARRIERS/FACTORS IMPACTING COMPLETION OF GOALS: busy schedule and lack of meal prep/planning if herhusband is not cooking NUTRITION INTERVENTION: Review of meal planning Review of nutritional goals CHANGES IN TREATMENT AND RECOMMENDATIONS: Pt seen for 1 month MNT follow up for weight management in 37 year old female with BMI of 36. Audio connection was poor during visit so RD called pt during the video visit. Pt continues on phentermine, now taking full tablet, reports tolerating well, weight loss noted. Ptstates she did well with meal planning for the first 2 weeks but then had a stomach bug which caused her to get off track and has not been able to fully resume her previous food choices. Pt states meal planning is easier when her is home to cook, otherwise she finds herself skipping meals or snacking. Reviewed healthful snack choices which incorporate fiber, protein and healthy fats. Pt also reports she has resumed drinking sugary beverages a few times a week. New Goal: Same as above and will add; 5. Avoid sugary beverages, instead drink sugar free beverages. Adherence Potential to New Goals/Care Plan: Good. REVISION OR ADDITION OF NUTRITION DIAGNOSIS STATEMENT: None at the present time Has Not Changed EDUCATIONAL MATERIALS: None this visit Plan of Care 2 month follow up Referred by: Fátima Williamson V, MD Consult Billing Type: Re-assess/15 minutes, 2 increment(s), 30 minutes Start Time: 8:00 AM End Time: 8:[address] documented in this encounterTr[facility]05-10-2023 Miscellaneous Notes* Telephone Encounter - Tanika Tamez Ma - 11/28/2022 2:38 PM EDT Faxed as requested. * Telephone Encounter - Merlyn Ferreira - 11/28/2022 2:05 PM EDT Ilda Viera is calling Fátima Williamson MD today to request most recent lab results to be faxed to her POULTRY HATCHERY MANAGER, Dr. Josselyn Garrison at [phone]. Patient has been identified by name and birthdate. Duration of symptoms: N/A Person calling: self Call patient at: at home [phone] (home) [phone] (cell) Was an appointment scheduled: No Closing statement: Results or non-symptom based questions: Thank you for calling [facility], your call will be returned within the next business day. Thank you, Merlyn Ferreira documented in this encounterTr[facility]ull [facility]05-08-2023 History of Present illness Narrative* Colin Gr RD - 11/26/2022 10:00 AM EDT [facility] Medical Nutrition Therapy Visit Type: I have communicated my name and active licensure. The patient's identity and physical location wereverified at the time of this visit. Either the patient or their legal employee representative has been informed of the risks and benefits of -- and alternatives to -- treatment through a remote evaluation andconsents to proceed with the evaluation remotely. Patient states reason for visit: Weight Management Initial DEMOGRAPHICS: Co-Morbidities: PAST MEDICAL HISTORY Diagnosis Date Acquired hypothyroidism 01/21/2020 Bipolar 1 disorder (HCC) 01/21/2020 Activity: Do you do a regular exercise: no Just started last week Yoga for 20 min walking or stationary bike or treadmill for 1.5-2 miles Symptoms: Patient's symptoms are as follows: nausea, diarrhea for past week which pt attributes to medicationand low liberty, low carb diet How many hours of sleep on average? 7-8 hours Diet History: Breakfast: up by 6:30 AM eat by 7-7:30 AM lit and fit tamazight yogurt or eggs or 1 eggo waffle dry, water Snack: n/a Lunch:12-1PM - not too hungry since starting phentermine, sometimes just veg like green beans, did just purchase [employer] pro shake Snack:n/a Dinner:1/4 of burger shanell with ketchup, no bun, water, sometimes diet pop Snack: mini sweet peppers with ranch, BT 10:30 Fluids stopped regular pop or ice tea last week, only drinking water now ETOH denies Dining/eating out? Not often Allergies: No Food Allergy Patient / Provider Comments: Pt seen for initial MNT assessment and education for weight managementin 37 year old female with BMI of 38. Pt states she has been on Metformin 2000 mg a day for a few years. Just started 1/2 tablet of phentermine 5 days ago and reports suppressed appetite. Pt reports some nausea and diarrhea which she attributes to dietary changes over the past week. Pt stopped drinking sugary beverages and significantly cut her caloric intake. Pt tracking food intake using myX-IOnesspal, states she is below 1000 kcal some days. Medications: Current Outpatient Medications Medication Sig Phentermine HCl (ADIPEX-P) 37.5 mg tablet Take half tablet daily for 4 weeks and then one full tablet daily. Stop is or planning to get LEVOXYL 137 mcg tablet Take 1 tablet by mouth once daily. traZODone (DESYREL) 100 mg tablet Take 1 tablet by mouth daily at bedtime. As needed spironolactone (ALDACTONE) 50 mg tablet Take 1 tablet by mouth twice daily. ketoconazole (NIZORAL) 2 % shampoo Lather into scalp for 5 minutes then rinse. Use TIW. ALPRAZolam (XANAX) 0.5 mg tablet TAKE 1 TO 2 TABLETS BY MOUTH AT BEDTIME NEEDED FOR ANXIETY ergocalciferol 50,000 unit capsule (VITAMIN D2, DRISDOL) Take 1 capsule by mouth one time a week. ibuprofen (MOTRIN) 600 mg tablet Take by mouth. TAKE 1 TABLET BY MOUTH 3 TIMES A DAY FOR 10 DAYS lamoTRIgine (LAMICTAL) 150 mg tablet Take 300 mg by mouth once daily. ondansetron (ZOFRAN) 4 mg tablet Take 4 mg by mouth every 6 hours as needed. For Nausea metFORMIN (GLUCOPHAGE) 1,000 mg tablet Take 1,000 mg by mouth twice daily. LATUDA 80 mg tablet Take 80 mg by mouth. Vmnhoafs-Av-Zyy-Fe-FA (P-D JACINTA PLUS) ORAL Tab Take 1 tablet by mouth. No current facility-administered medications for this visit. Labs: Glucose (mg/dL) Date Value 08/08/2021 121 Potassium (mmol/L) Date Value 08/08/2021 4.4 Sodium (mmol/L) Date Value 08/08/2021 141 Chloride (mmol/L) Date Value 08/08/2021 104 CO2 (mmol/L) Date Value 08/08/2021 24 Creatinine (mg/dL) Date Value 08/08/2021 0.80 BUN (mg/dL) Date Value 08/08/2021 12 Anion Gap (mmol/L) Date Value 08/08/2021 13 Calcium (mg/dL) Date Value 08/08/2021 9.5 Lab Results Component Value Date HBA1C 5.2 06/18/2020 No results found for: CHOL, HDL, LDL, TG Glucose (mg/dL) Date Value 08/08/2021 121 Potassium (mmol/L) Date Value 08/08/2021 4.4 Sodium (mmol/L) Date Value 08/08/2021 141 Chloride (mmol/L) Date Value 08/08/2021 104 CO2 (mmol/L) Date Value 08/08/2021 24 Creatinine (mg/dL) Date Value 08/08/2021 0.80 BUN (mg/dL) Date Value 08/08/2021 12 Anion Gap (mmol/L) Date Value 08/08/2021 13 Calcium (mg/dL) Date Value 08/08/2021 9.5 Protein, Total (g/dL) Date Value 08/08/2021 7.9 Albumin (g/dL) Date Value 08/08/2021 4.3 Bilirubin, Total (mg/dL) Date Value 08/08/2021 0.2 Alkaline Phosphatase (U/L) Date Value 08/08/2021 110 AST (U/L) Date Value 08/08/2021 22 ALT (U/L) Date Value 08/08/2021 30 ANTHROPOMETRICS Height: Last 1 Encounter Ht Readings: Date: Ht: 08/08/2021 163.8 cm (5' 4.5 ) Current weight: Last 3 Encounter Wt Readings: Date: Wt: 05/23/2020 96 kg (211 lb 11.2 oz) 08/08/2021 117.9 kg (260 lb) 11/21/2022 120.7 kg (266 lb) pt states this weight was entered incorrectly 11/26/2022 102.5 kg (226 lb) BMI: 38 5% -10% Weight loss: 11-22# 5% weight loss = 215 lbs 10% weight loss = 203 lbs READINESS TO LEARN Cognitive ability: Alert and oriented Motivation to learn: Interested Family support: Unable to assess - Family not present Instruction provided to: Patient Patient learns best by: Individual Instruction Factors affecting learning: None Physical limitations affecting learning: None Stage of Change: Action Nutrition Diagnosis: Overweight Obesity, related to; decreased energy needs, food/nutrition - related knowledge deficit, and physical inactivity, as evidenced by BMI above normative standard for age and gender Calories Needed for Current Weight: Resting Metabolic Rate: 1709*1.2 Calories for Weight Loss: 1550 kcal Nutrition Intervention: I discussed benefits and discussed the following eaton components of the Mediterranean Diet: -- Include generous amounts of non-starchy vegetables --Reviewed 1/2 cup servings of whole grains, potatoes, dried beans --Role of nuts/ seeds in the diet --Limit processed foods --Use olive oil as the primary source of fat --Moderate consumption of low fat dairy products --Consume at least 6 ounces fish or shellfish at least twice weekly --Limit red meat to twice month, no more than once weekly. --May use chicken or turkey for protein --Use beans/ lentils as a source of protein (up to 1 cup per day) -- emphasized choosing plant foods often (vegetables, nuts/seeds, olives/olive oil, fruit, whole/ancient grains) --including protein sources at meal (fish or lean meats, beans/lentils/nuts/seeds/yogurt) -- choosing less fried food/processed food when ready/able --alternatives to sugary beverages --plate method for portioning meals/food groups without tracking calories/fat/carbs/pro --using meal replacements or pre-made balanced snacks as needed to avoid skipping meals --how to put together balanced quick meals without cooking if needed --food journaling for accountability as an option Awareness of Internal Regulation of Hunger: --Stressed capabilities with internal regulation of food intake to support energy balance --Eating regular meals/snacks every 3-5 hours for internal regulation and avoiding the dieting mentality for termite treater behavior change --Discussed tactics for getting enough to eat --Reviewed hunger/fullness scale Discussed the following nutrition topics today at the appointment: --carbohydrate sources and effect on blood sugars --basic carbohydrate counting including eating consistent carbohydrates at each meal, goal is 30-45grams of carb at each meal --food label reading for carbohydrate and fiber --portion sizes of commonly eaten carb foods --avoiding regular soda, juice, and fried foods --Plate Method: at least 1/2 plate filled with low carb vegetables, 1/4 plate with a protein food that is not fried, 1/4 plate high fiber starch/carb . Education Materials: Mediterranean Booklet Nutrition Monitoring & Evaluation: Dietitian Goals: Weight Reduction of 5-10% within 6 months Criteria: Weight Patient Stated Goals at today's visit: Continue to track food intake and track activity Follow low carb Mediterranean guidelines limiting carbs to 30-45 grams per meal coming from high fibrous, high quality sources when possible Consider protein shake as meal replacement if appetite is low to prevent skipping completely and ensure adequate daily calories and pro are being met for weight loss Balance meals and snacks with protein, fiber and healthy fats Adherence Potential to Goals: Good Need for Follow up: 6 weeks Referred by: Fátima Williamson V, MD Consult Billing Type/Increments: Initial Assessment/15 minutes, 2 increment(s), 30 minutes Start time: 10:00 AM End time: 10:30 AM My final report will be communicated back to the requesting physician by way of shared medical record. Signed by: Colin Gr RD documented in this encounterTr[facility]02-24-[facility]23 Hospital Discharge instructions Patient Education 09/14/2022 14:17:47 Exercising to Lose Weight Exercising to Lose Weight Exercise is structured, repetitive physical activity to improve fitness and health. Getting regularexercise is important for everyone. It is especially important if you are overweight. Being overweight increases your risk of heart disease, stroke, diabetes, high blood pressure, and several types of cancer. Reducing your calorie intake and exercising can help you lose weight. Exercise is usually categorized as moderate or vigorous intensity. To lose weight, most people needto do a certain amount of moderate-intensity or vigorous-intensity exercise each week. Moderate-intensity exercise Moderate-intensity exercise is any activity that gets you moving enough to burn at least three times more energy (calories) than if you were sitting. Examples of moderate exercise include: Walking a mile in 15 minutes. Doing light yard work. Biking at an easy pace. Most people should get at least 150 minutes (2 hours and 30 minutes) a week of moderate-intensity exercise to maintain their body weight. Vigorous-intensity exercise Vigorous-intensity exercise is any activity that gets you moving enough to burn at least six times more calories than if you were sitting. When you exercise at this intensity, you should be working hard enough that you are not able to carry on a conversation. Examples of vigorous exercise include: Running. Playing a team sport, such as football, basketball, and soccer. Jumping rope. Most people should get at least 75 minutes (1 hour and 15 minutes) a week of vigorous-intensity exercise to maintain their body weight. How can exercise affect me? When you exercise enough to burn more calories than you eat, you lose weight. Exercise also reducesbody fat and builds muscle. The more muscle you have, the more calories you burn. Exercise also: Improves mood. Reduces stress and tension. Improves your overall fitness, flexibility, and endurance. Increases bone strength. The amount of exercise you need to lose weight depends on: Your age. The type of exercise. Any health conditions you have. Your overall physical ability. Talk to your health care provider about how much exercise you need and what types of activities aresafe for you. What actions can I take to lose weight? Nutrition Make changes to your diet as told by your health care provider or diet and nutritional yeast supervisor (dietitian). This may include: ?Eating fewer calories. ?Eating more protein. ?Eating less unhealthy fats. ?Eating a diet that includes fresh fruits and vegetables, whole grains, low-fat dairy products, andlean protein. ?Avoiding foods with added fat, salt, and sugar. Drink plenty of water while you exercise to prevent dehydration or heat stroke. Activity Choose an activity that you enjoy and set realistic goals. Your health care provider can help you make an exercise plan that works for you. Exercise at a moderate or vigorous intensity most days of the week. ?The intensity of exercise may vary from person to person. You can tell how intense a workout is for you by paying attention to your breathing and heartbeat. Most people will notice their breathing and heartbeat get faster with more intense exercise. Do resistance training twice each week, such as: ?Push-ups. ?Sit-ups. ?Lifting weights. ?Using resistance bands. Getting short amounts of exercise can be just as helpful as long structured periods of exercise. Ifyou have trouble finding time to exercise, try to include exercise in your daily routine. ?Get up, stretch, and walk around every 30 minutes throughout the day. ?Go for a walk during your lunch break. ?Park your car farther away from your destination. ?If you take public transportation, get off one stop early and walk the rest of the way. ?Make phone calls while standing up and walking around. ?Take the stairs instead of elevators or escalators. Wear comfortable clothes and shoes with good support. Do not exercise so much that you hurt yourself, feel dizzy, or get very short of breath. Where to find more information [place] Department of Health and Human Services: www.hhs.gov Centers for Disease Control and Prevention (CDC): www.cdc.gov Contact a health care provider: Before starting a new exercise program. If you have questions or concerns about your weight. If you have a medical problem that keeps you from exercising. Get help right away if you have any of the following while exercising: Injury. Dizziness. Difficulty breathing or shortness of breath that does not go away when you stop exercising. Chest pain. Rapid heartbeat. Summary Being overweight increases your risk of heart disease, stroke, diabetes, high blood pressure, and several types of cancer. Losing weight happens when you burn more calories than you eat. Reducing the amount of calories you eat in addition to getting regular moderate or vigorous exercise each week helps you lose weight. This information is not intended to replace advice given to you by your health care provider. Make sure you discuss any questions you have with your health care provider. Document Released: 08/10/2011 Document Revised: 07/21/2018 Document Reviewed: 07/21/2018 [employer] Patient Education 2020 [employer]. 09/14/2022 14:17:46 Budget-Friendly Healthy Eating Budget-Friendly Healthy Eating There are many ways to save money at the grocery store and continue to eat healthy. You can be successful if you: Plan meals according to your budget. Make a grocery list and only purchase food according to your grocery list. Prepare food yourself. What are tips for following this plan? Reading food labels Compare food labels between brand name foods and the store brand. Often the nutritional value is the same, but the store brand is lower cost. Look for products that do not have added sugar, fat, or salt (sodium). These often cost the same but are healthier for you. Products may be labeled as: ?Sugar-free. ?Nonfat. ?Low-fat. ?Sodium-free. ?Low-sodium. Look for lean ground beef labeled as at least 92% lean and 8% fat. Shopping Buy only the items on your grocery list and go only to the areas of the store that have the items on your list. Use coupons only for foods and brands you normally buy. Avoid buying items you wouldn't normally buy simply because they are on sale. Check online and in newspapers for weekly deals. Buy healthy items from the bulk bins when available, such as herbs, spices, flour, pasta, nuts, anddried fruit. Buy fruits and vegetables that are in season. Prices are usually lower on in- season produce. Look at the unit iqbal on the iqbal tag. Use it to compare different brands and sizes to find out which item is the best deal. Choose healthy items that are often low-cost, such as carrots, potatoes, apples, bananas, and oranges. Dried or canned beans are a low-cost protein source. Buy in bulk and freeze extra food. Items you can buy in bulk include meats, fish, poultry, frozen fruits, and frozen vegetables. Avoid buying bhvbk-ta-uwp foods, such as pre-cut fruits and vegetables and pre-made salads. If possible, shop around to discover where you can find the best prices. Consider other retailers such as dollar stores, larger wholesale stores, local fruit and vegetable [employer], and [employer] markets. Do not shop when you are hungry. If you shop while hungry, it may be hard to stick to your list andbudget. Resist impulse buying. Use your grocery list as your official plan for the week. Buy a variety of vegetables and fruits by purchasing fresh, frozen, and canned items. Look at the top and bottom shelves for deals. Foods at eye level (eye level of an adult or child) are usually more expensive. Be efficient with your time when shopping. The more time you spend at the store, the more money youare likely to spend. To save money when choosing more expensive foods like meats and dairy: ?Choose cheaper cuts of meat, such as bone-in chicken thighs and drumsticks instead of skinless andboneless chicken. When you are ready to prepare the chicken, you can remove the skin yourself to make it healthier. ?Choose lean meats like chicken or turkey instead of beef. ?Choose canned seafood, such as tuna, salmon, or sardines. ?Buy eggs as a low-cost source of protein. ?Buy dried beans and peas, such as lentils, split peas, or kidney beans instead of meats. Dried beans and peas are a good alternative source of protein. ?Buy the larger tubs of yogurt instead of individual-sized containers. Choose water instead of sodas and other sweetened beverages. Avoid buying chips, cookies, and other junk food. These items are usually expensive and not healthy. Cooking Make extra food and freeze the extras in meal-sized containers or in individual portions for fast meals and snacks. Pre-cook on days when you have extra time to prepare meals in advance. You can keep these meals in the fridge or freezer and reheat for a quick meal. When you come home from the grocery store, wash, peel, and cut fruits and vegetables so they are ready to use and eat. This will help reduce food waste. Meal planning Do not eat out or get fast food. Prepare food at home. Make a grocery list and make sure to bring it with you to the store. If you have a smart phone, youcould use your phone to create your shopping list. Plan meals and snacks according to a grocery list and budget you create. Use leftovers in your meal plan for the week. Look for recipes where you can cook once and make enough food for two meals. Include budget-friendly meals like stews, casseroles, and stir-steel dishes. Try some meatless meals or try no cook meals like salads. Make sure that half your plate is filled with fruits or vegetables. Choose from fresh, frozen, or canned fruits and vegetables. If eating canned, remember to rinse them before eating. This will remove any excess salt added for packaging. Summary Eating healthy on a budget is possible if you plan your meals according to your budget, purchase according to your budget and grocery list, and prepare food yourself. Tips for buying more food on a limited budget include buying generic brands, using coupons only forfoods you normally buy, and buying healthy items from the bulk bins when available. Tips for buying cheaper food to replace expensive food include choosing cheaper, lean cuts of meat,and buying dried beans and peas. This information is not intended to replace advice given to you by your health care provider. Make sure you discuss any questions you have with your health care provider. Document Released: 03/11/2015 Document Revised: 07/09/2018 Document Reviewed: 07/09/2018 [employer] Patient Education 2020 [employer] 09/14/2022 14:17:45 BMI for Adults BMI for Adults Body mass index (BMI) is a number that is calculated from a person's weight and height. BMI may help to estimate how much of a person's weight is composed of fat. BMI can help identify those who may be at higher risk for certain medical problems. How is BMI used with adults? BMI is used as a screening tool to identify possible weight problems. It is used to check whether aperson is obese, overweight, healthy weight, or underweight. How is BMI calculated? BMI measures your weight and compares it to your height. This can be done either in [place] ([place] or metric measurements. Note that charts are available to help you find your BMI quickly and easily without having to do these calculations yourself. To calculate your BMI in [place] measurements, your health care provider will: 1.Measure your weight in pounds (lb). 2.Multiply the number of pounds by 703. For example, for a person who weighs 180 lb, multiply that number by 703, which equals 126,540. 3.Measure your height in inches (in). Then multiply that number by itself to get a measurement called inches squared. For example, for a person who is 70 in tall, the inches squared measurement is 70 in x 70 in, which equals 4900 inches squared. 4.Divide the total from Step 2 (number of lb x 703) by the total from Step 3 (inches squared): 126,540 4900 = 25.8. This is your BMI. To calculate your BMI in metric measurements, your health care provider will: 1.Measure your weight in kilograms (kg). 2.Measure your height in meters (m). Then multiply that number by itself to get a measurement called meters squared. For example, for a person who is 1.75 m tall, the meters squared measurement is 1.75 m x 1.75 m, which is equal to 3.1 meters squared. 3.Divide the number of kilograms (your weight) by the meters squared number. In this example: 70 3.1 = 22.6. This is your BMI. How is BMI interpreted? To interpret your results, your health care provider will use BMI charts to identify whether you are underweight, normal weight, overweight, or obese. The following guidelines will be used: Underweight: BMI less than 18.5. Normal weight: BMI between 18.5 and 24.9. Overweight: BMI between 25 and 29.9. Obese: BMI of 30 and above. Please note: Weight includes both fat and muscle, so someone with a muscular build, such as an athlete, may havea BMI that is higher than 24.9. In cases like these, BMI is not an accurate measure of body fat. To determine if excess body fat is the cause of a BMI of 25 or higher, further assessments may needto be done by a health care provider. BMI is usually interpreted in the same way for men and women. Why is BMI a useful tool? BMI is useful in two ways: Identifying a weight problem that may be related to a medical condition, or that may increase the risk for medical problems. Promoting lifestyle and diet changes in order to reach a healthy weight. Summary Body mass index (BMI) is a number that is calculated from a person's weight and height. BMI may help to estimate how much of a person's weight is composed of fat. BMI can help identify those who may be at higher risk for certain medical problems. BMI can be measured using [place]ic measurements or metric measurements. To interpret your results, your health care provider will use BMI charts to identify whether you are underweight, normal weight, overweight, or obese. This information is not intended to replace advice given to you by your health care provider. Make sure you discuss any questions you have with your health care provider. Document Released: 03/19/2005 Document Revised: 06/20/2018 Document Reviewed: 05/21/2018 [employer] Patient Education 2020 [employer]. 09/14/2022 14:17:43 Sinusitis, Adult Sinusitis, Adult Sinusitis is inflammation of your sinuses. Sinuses are hollow spaces in the bones around your face.Your sinuses are located: Around your eyes. In the middle of your forehead. Behind your nose. In your cheekbones. Mucus normally drains out of your sinuses. When your nasal tissues become inflamed or swollen, mucus can become trapped or blocked. This allows bacteria, viruses, and fungi to grow, which leads to infection. Most infections of the sinuses are caused by a virus. Sinusitis can develop quickly. It can last for up to 4 weeks (acute) or for more than 12 weeks (chronic). Sinusitis often develops after a cold. What are the causes? This condition is caused by anything that creates swelling in the sinuses or stops mucus from draining. This includes: Allergies. Asthma. Infection from bacteria or viruses. Deformities or blockages in your nose or sinuses. Abnormal growths in the nose (nasal polyps). Pollutants, such as chemicals or irritants in the air. Infection from fungi (rare). What increases the risk? You are more likely to develop this condition if you: Have a weak body defense system (immune system). Do a lot of swimming or diving. Overuse nasal sprays. Smoke. What are the signs or symptoms? The main symptoms of this condition are pain and a feeling of pressure around the affected sinuses.Other symptoms include: Stuffy nose or congestion. Thick drainage from your nose. Swelling and warmth over the affected sinuses. Headache. Upper toothache. A cough that may get worse at night. Extra mucus that collects in the throat or the back of the nose (postnasal drip). Decreased sense of smell and taste. Fatigue. A fever. Sore throat. Bad breath. How is this diagnosed? This condition is diagnosed based on: Your symptoms. Your medical history. A physical exam. Tests to find out if your condition is acute or chronic. This may include: ?Checking your nose for nasal polyps. ?Viewing your sinuses using a device that has a light (endoscope). ?Testing for allergies or bacteria. ?Imaging tests, such as an MRI or CT scan. In rare cases, a bone biopsy may be done to rule out more serious types of fungal sinus disease. How is this treated? Treatment for sinusitis depends on the cause and whether your condition is chronic or acute. If caused by a virus, your symptoms should go away on their own within 10 days. You may be given medicines to relieve symptoms. They include: ?Medicines that shrink swollen nasal passages (topical intranasal decongestants). ?Medicines that treat allergies (antihistamines). ?A spray that eases inflammation of the nostrils (topical intranasal corticosteroids). ?Rinses that help get rid of thick mucus in your nose (nasal saline washes). If caused by bacteria, your health care provider may recommend waiting to see if your symptoms improve. Most bacterial infections will get better without antibiotic medicine. You may be given antibiotics if you have: ?A severe infection. ?A weak immune system. If caused by narrow nasal passages or nasal polyps, you may need to have surgery. Follow these instructions at home: Medicines Take, use, or apply kmnn-itw-ityitzg and prescription medicines only as told by your health care provider. These may include nasal sprays. If you were prescribed an antibiotic medicine, take it as told by your health care provider. Do notstop taking the antibiotic even if you start to feel better. Hydrate and humidify Drink enough fluid to keep your urine pale yellow. Staying hydrated will help to thin your mucus. Use a cool mist humidifier to keep the humidity level in your home above 50%. Inhale steam for 10 15 minutes, 3 4 times a day, or as told by your health care provider. You can do this in the bathroom while a hot shower is running. Limit your exposure to cool or dry air. Rest Rest as much as possible. Sleep with your head raised (elevated). Make sure you get enough sleep each night. General instructions Apply a warm, moist washcloth to your face 3 4 times a day or as told by your health care provider.This will help with discomfort. Wash your hands often with soap and water to reduce your exposure to germs. If soap and water are not available, use hand exhibits coordinator. Do not smoke. Avoid being around people who are smoking (secondhand smoke). Keep all follow-up visits as told by your health care provider. This is important. Contact a health care provider if: You have a fever. Your symptoms get worse. Your symptoms do not improve within 10 days. Get help right away if: You have a severe headache. You have persistent vomiting. You have severe pain or swelling around your face or eyes. You have vision problems. You develop confusion. Your neck is stiff. You have trouble breathing. Summary Sinusitis is soreness and inflammation of your sinuses. Sinuses are hollow spaces in the bones around your face. This condition is caused by nasal tissues that become inflamed or swollen. The swelling traps or blocks the flow of mucus. This allows bacteria, viruses, and fungi to grow, which leads to infection. If you were prescribed an antibiotic medicine, take it as told by your health care provider. Do notstop taking the antibiotic even if you start to feel better. Keep all follow-up visits as told by your health care provider. This is important. This information is not intended to replace advice given to you by your health care provider. Make sure you discuss any questions you have with your health care provider. Document Released: 07/08/2006 Document Revised: 12/08/2018 Document Reviewed: 12/08/2018 [employer] Patient Education 2020 [employer]. Follow Up Care 09/12/2022 22:38:08 With:SAMIR ALDANA YAMILETH Rene Address: [address] [place] [address] When: Unknown [facility] 06-08-2022 Miscellaneous Notes* Telephone Encounter - Tomeka Gonzalez MD - 12/27/2021 5:08 PM EDT The following approved medication requests have been transmitted electronically. Signed Prescriptions Disp Refills LEVOXYL 137 mcg tablet 90 tablet 3 Sig: TAKE 1 TABLET BY MOUTH EVERY DAY SAMM: Yes Authorizing Provider: TOMEKA GONZALEZ MD * Telephone Encounter - Kesha Viera Ma - 12/27/2021 9:27 AM EDT Requester: Patient Patients last Endocrinology visit occurred 08/08/2021. Follow-up evaluation has been established None. Pending Prescriptions Disp Refills LEVOXYL 137 MCG TABLET 90 tablet 0 Sig: TAKE 1 TABLET BY MOUTH EVERY DAY SAMM: Yes If patient is due for an appointment please route to provider for refill consideration and also to the endo scheduling pool. PSS NOTE: Patient needs scheduled appointment [facility] Discharge [facility] Patient Education 12/07/2021 12:06:03 Endoscopic Ethmoidectomy and Antrostomy, Care After Endoscopic Ethmoidectomy and Antrostomy, Care After This sheet gives you information about how to care for yourself after your procedure. Your health care provider may also give you more specific instructions. If you have problems or questions, contact your health care provider. What can I expect after the procedure? After the procedure, it is common to have: Mild pain. A stuffy nose (nasal congestion). Some bloody drainage from your nose. Follow these instructions at home: Medicines Take mooz-zsp-idmpgrk and prescription medicines only as told by your health care provider. If you were prescribed an antibiotic medicine, take it as told by your health care provider. Do notstop taking the antibiotic even if you start to feel better. Do not drive or use heavy machinery while taking prescription pain medicine. Nose care If you have a gauze pad bandage (dressing) under your nose, keep this dressing clean. Change it if it gets soaked with nasal drainage. Check your nasal dressing often for signs of thick discharge, more blood, or more discharge of clear fluid. Follow instructions from your health care provider about using saline nasal sprays or washing out (irrigating) your nasal cavity. Managing pain and swelling Keep your head raised (elevated) when you are lying down. You can use a pillow to do this. If directed, put ice on the affected area: ?Put ice in a plastic bag. ?Place a towel between your skin and the bag. ?Leave the ice on for 20 minutes, 2 3 times a day. Activity Return to your normal activities as told by your health care provider. Ask your health care provider what activities are safe for you. Do not lift anything that is heavier than 10 lb (4.5 kg) until your health care provider says that it is safe. Do not bend over until your health care provider says that it is safe. Ask your health care provider when it is safe for you to drive. Avoid these activities as directed by your health care provider: ?Blowing your nose. ?Coughing or sneezing. If you cannot stop a sneeze, sneeze with your mouth open. ?Straining on the toilet. General instructions Do not use hot water when taking a bath or shower. Do not swim or use a hot tub until your health care provider approves. Do not use any products that contain nicotine or tobacco, such as cigarettes and e-cigarettes. These products can delay healing. If you need help quitting, ask your health care provider. To prevent or treat constipation while you are taking prescription pain medicine, your health care provider may recommend that you: ?Drink enough fluid to keep your urine pale yellow. ?Take dzdr-wno-fvsxpln or prescription medicines. ?Eat foods that are high in fiber, such as fresh fruits and vegetables, whole grains, and beans. ?Limit foods that are high in fat and processed sugars, such as fried and sweet foods. Keep all follow-up visits as told by your health care provider. This is important. You will need toreturn to see your surgeon about 1 week after the procedure. Contact a health care provider if: You have: ?Chills or a fever. ?Thick, bloody, or watery discharge from your nose. ?A headache or stiff neck. ?Any change in vision. Your pain is not controlled by your pain medicine. You are not able to breathe through your nose after your packing is removed. Get help right away if: You have heavy bleeding from your nose. You have any loss of vision. Summary After the procedure, it is common to have mild pain, a stuffy nose (nasal congestion), and some bloody drainage from your nose. Take [id number] and prescription medicines only as told by your health care provider. Follow instructions from your health care provider about using saline nasal sprays or washing out (irrigating) your nasal cavity. Ask your health care provider what activities are safe for you. Do not use hot water when taking a bath or shower. Do not swim or use a hot tub until your health care provider approves. This information is not intended to replace advice given to you by your health care provider. Make sure you discuss any questions you have with your health care provider. Document Released: 12/23/2017 Document Revised: 06/20/2018 Document Reviewed: 12/23/2017 Smart Surgical Patient Education 2020 [employer]. 12/07/2021 12:04:55 Post Op Patient Instructions - FT (Custom) (CUSTOM) Follow Up Care 11/13/2021 09:14:31 With:Rose Marie Vázquez Address: [address] [place] [address], [address] [place] [phone] Business (1) When:12/15/2021 Comments:Call for followup appointment [facility]05-19-2022 Evaluation + Plan noteExtracted from: Title:Post-anesthesia - General Author:Sage Lyles DO Date:12/07/21 Plan Transfer/ Discharge: Condition stable. Extracted from: Title:Pre-anesthesia - Adult Author:Sage Mercado Jr., DO Date:12/07/21 Plan [employer] (ASA) physical status classification: Class II. Anesthetic Preoperative Plan Anesthesia: General. . Anesthetic plan, risks, benefits, and alternatives discussed with the patient and/or family. Patient verbalized understanding. Adverse reactions, complications, and alternatives discujssed. Consent signed and on chart.. [facility]03-05-2013 History of Past illness Narrative* Problem Noted Date Resolved Date Supervision of other normal 09/23/2012 11/17/2012 Supervision of other normal 09/23/2012 03/09/2013 Complete 03/10/2012 06/01/2012 Chronic cholecystitis 10/02/2007 06/01/2012 documented as of this encounter (statuses as of 12/27/2021) [facility]03-05-2013 History of Past illness Narrative* Problem Noted Date Resolved Date Supervision of other normal 09/23/2012 11/17/2012 Supervision of other normal 09/23/2012 03/09/2013 Complete 03/10/2012 06/01/2012 Chronic cholecystitis 10/02/2007 06/01/2012 documented as of this encounter (statuses as of 01/10/2022) [facility]03-05-2013 History of Past illness Narrative* Problem Noted Date Resolved Date Supervision of other normal 09/23/2012 11/17/2012 Supervision of other normal 09/23/2012 03/09/2013 Complete 03/10/2012 06/01/2012 Chronic cholecystitis 10/02/2007 06/01/2012 documented as of this encounter (statuses as of 11/26/2022) [facility]03-05[facility]2013 History of Past illness Narrative* Problem Noted Date Resolved Date Supervision of other normal 09/23/2012 11/17/2012 Supervision of other normal 09/23/2012 03/09/2013 Complete 03/10/2012 06/01/2012 Chronic cholecystitis 10/02/2007 06/01/2012 documented as of this encounter (statuses as of 11/28/2022) [facility]03-[facility]2013 History of Past illness Narrative* Problem Noted Date Resolved Date Supervision of other normal 09/23/2012 11/17/2012 Supervision of other normal 09/23/2012 03/09/2013 Complete 03/10/2012 06/01/2012 Chronic cholecystitis 10/02/2007 06/01/2012 documented as of this encounter (statuses as of 01/07/2023) [facility]03-05[facility]2013 History of Past illness Narrative* Problem Noted Date Diagnosed Date Resolved Date Supervision of other normal 09/23/2012 11/17/2012 Supervision of other normal 09/23/2012 03/09/2013 Complete 03/10/2012 06/01/2012 Chronic cholecystitis 10/02/20072011 documented as of this encounter (statuses as of 03/14/2023) [facility]03-05[facility]2013 History of Past illness Narrative* Problem Noted Date Diagnosed Date Resolved Date Supervision of other normal 09/23/2012 11/17/2012 Supervision of other normal 09/23/2012 03/09/2013 Complete 03/10/2012 06/01/2012 Chronic cholecystitis 10/02/20072011 documented as of this encounter (statuses as of 10/11/2023) [facility]ments Appointment Date:08/05/2023 03:00:00 PM Scheduled Provider: [facility] App[facility] Type:ONC Office Visit 30 (FT) Appointment Date:08/08/2023 09:00:00 AM Scheduled Provider:Linda Lutz Location:[facility] Appointment Type:FM Open Diagnostic Tests Pending * HCV Antibody RFX to Quant PCR 06/25/23 * Hep B Core Ab, IgM 06/25/23 * Hepatitis A Antibody IgM 06/25/23 * Hepatitis B Surface Antibody 06/25/23 * Hepatitis B Surface Antigen 06/25/23 * HIV Screen 4th Generation wRfx 06/25/23 * Free K+L Lt Chains,Qn,S 06/25/23 * MATT and PE, Serum 06/25/23 * Immunoglobs. A/E/G/M 06/25/23 * Beta 2 Microglobulin 06/25/23 * HOMERO w/Reflex if POS 06/25/23 * Angiotensin Converting Enzyme 06/25/23 * Rheumatoid Factor Quantitative 06/25/23 * Antineutrophil Cytoplasmic Antibody 06/25/23 Future Scheduled Tests Radiology* US Liver 06/26/23 * XR Bone Survey Complete 06/26/23 [facility] Future App[facility]ments Appointment Date:07/02/2023 01:00:00 PM Scheduled Provider: [facility] Type:XR Bone Survey (FT) Appointment Date:08/05/2023 03:00:00 PM Scheduled Provider: [facility] App[facility] Type:ONC Office Visit 30 (FT) Appointment Date:08/08/2023 09:00:00 AM Scheduled Provider:Linda Lutz Location:[facility] Appointment Type:FM Open Future Scheduled Tests Radiology* XR Bone Survey Complete 07/02/23 [facility] Future Appointments Appointment Date:08/05/2023 03:00:00 PM Scheduled Provider: [facility] App[facility] Type:ONC Office Visit 30 (FT) Appointment Date:08/08/2023 09:00:00 AM Scheduled Provider:Linda Lutz Location:[facility] Appointment Type: Open Diagnostic Tests Pending * Protein Electrophoresis 24 Hour Urine 07/25/23 [facility] Future Appointments Appointment Date:08/08/2023 09:00:00 AM Scheduled Provider:Linda Lutz Location:[facility] Appointment Type:FM Open Appointment Date:03/02/2024 03:00:00 PM Scheduled Provider: [facility] App[facility] Type:ONC Office Visit 30 (FT) Future Scheduled Tests Laboratory* Rheumatoid Factor Quantitative 02/03/24 * HOMERO w/Reflex if POS 02/03/24 * MATT and PE, Serum 02/03/24 * Immunoglobs. A/E/G/M 02/03/24 * Free K+L Lt Chains,Qn,S 02/03/24 * CBC w/ Auto Diff 02/03/24 * Comprehensive Metabolic Panel 02/03/24 * Ferritin 02/03/24 * Iron Level 02/03/24 * Iron Percent Saturation 02/03/24 * Transferrin 02/03/24 * Vitamin B12 Level 02/03/24 [facility] Future Appointments Appointment Date:09/16/2023 09:00:00 AM Scheduled Provider:Linda Lutz Location:[facility] Appointment Type:FM Open Appointment Date:03/02/2024 03:00:00 PM Scheduled Provider: [facility] App[facility] Type:ONC Office Visit 30 (FT) Future Scheduled Tests Laboratory* Rheumatoid Factor Quantitative 02/03/24 * HOMERO w/Reflex if POS 02/03/24 * MATT and PE, Serum 02/03/24 * Immunoglobs. A/E/G/M 02/03/24 * Free K+L Lt Chains,Qn,S 02/03/24 * CBC w/ Auto Diff 02/03/24 * Comprehensive Metabolic Panel 02/03/24 * Ferritin 02/03/24 * Iron Level 02/03/24 * Iron Percent Saturation 02/03/24 * Transferrin 02/03/24 * Vitamin B12 Level 02/03/24 [facility] Evaluation + Plan note Future Appointments Appointment Date:03/02/2024 03:00:00 PM Scheduled Provider:Awais BAI, Dyan Cid [facility] Appointment Type:ONC Office Visit 30 (FT) Future Scheduled Tests Laboratory* Rheumatoid Factor Quantitative 02/03/24 * HOMERO w/Reflex if POS 02/03/24 * MATT and PE, Serum 02/03/24 * Immunoglobs. A/E/G/M 02/03/24 * Free K+L Lt Chains,Qn,S 02/03/24 * CBC w/ Auto Diff 02/03/24 * Comprehensive Metabolic Panel 02/03/24 * Ferritin 02/03/24 * Iron Level 02/03/24 * Iron Percent Saturation 02/03/24 * Transferrin 02/03/24 * Vitamin B12 Level 02/03/24 [facility] Future Appointments Appointment Date:03/02/2024 03:00:00 PM Scheduled Provider:Awais BAI, Dyan Cid [facility] Appointment Type:ONC Office Visit 30 (FT) Diagnostic Tests Pending * Hepatitis B Surface Antigen 11/13/23 * RPR with Conf Rfx 11/13/23 * HIV Screen 4th Generation wRfx 11/13/23 * Rubella Antibody IgG 11/13/23 * Urine Culture 11/13/23 Future Scheduled Tests Laboratory* Rheumatoid Factor Quantitative 02/03/24 * HOMERO w/Reflex if POS 02/03/24 * MATT and PE, Serum 02/03/24 * Immunoglobs. A/E/G/M 02/03/24 * Free K+L Lt Chains,Qn,S 02/03/24 * CBC w/ Auto Diff 02/03/24 * Comprehensive Metabolic Panel 02/03/24 * Ferritin 02/03/24 * Iron Level 02/03/24 * Iron Percent Saturation 02/03/24 * Transferrin 02/03/24 * Vitamin B12 Level 02/03/24 [facility] Future Appointments Appointment Date:03/02/2024 03:00:00 PM Scheduled Provider:Dyan Ernandez MD Location[facility] Appointment Type:ONC Office Visit 30 (FT) Future Scheduled Tests Laboratory* Rheumatoid Factor Quantitative 02/03/24 * HOMERO w/Reflex if POS 02/03/24 * MATT and PE, Serum 02/03/24 * Immunoglobs. A/E/G/M 02/03/24 * Free K+L Lt Chains,Qn,S 02/03/24 * CBC w/ Auto Diff 02/03/24 * Comprehensive Metabolic Panel 02/03/24 * Ferritin 02/03/24 * Iron Level 02/03/24 * Iron Percent Saturation 02/03/24 * Transferrin 02/03/24 * Vitamin B12 Level 02/03/24 Radiology* Echo Transthoracic Complete 01/01/24 [facility] Future Appointments Appointment Date:02/05/2024 10:00:00 AM Scheduled Provider: [facility] Appoint[facility] Type:CV Holter/Event () Appointment Date:03/02/2024 03:00:00 PM Scheduled Provider:Dyan Ernandez MD Location[facility] Appointment Type:ONC Office Visit 30 (FT) Future Scheduled Tests Laboratory* Rheumatoid Factor Quantitative 02/03/24 * HOMERO w/Reflex if POS 02/03/24 * MATT and PE, Serum 02/03/24 * Immunoglobs. A/E/G/M 02/03/24 * Free K+L Lt Chains,Qn,S 02/03/24 * CBC w/ Auto Diff 02/03/24 * Comprehensive Metabolic Panel 02/03/24 * Ferritin 02/03/24 * Iron Level 02/03/24 * Iron Percent Saturation 02/03/24 * Transferrin 02/03/24 * Vitamin B12 Level 02/03/24 [facility] Future Appointments Appointment Date:03/30/2024 11:40:00 AM Scheduled Provider:Dyan Ernandez MD Location[facility] Appointment Type:ONC Office Visit 30 (FT) [facility] Evaluation + Plan note Future Appointments Appointment Date:03/30/2024 11:40:00 AM Scheduled Provider:Dyan Ernandez MD Location[facility] Appointment Type:ONC Office Visit 30 (FT) Diagnostic Tests Pending * Free K+L Lt Chains,Qn,S 03/25/24 * Rheumatoid Factor Quantitative 03/25/24 * MATT and PE, Serum 03/25/24 * HOMERO w/Reflex if POS 03/25/24 * IgE, Quant 03/25/24 [facility] aluation + Plan note Future Appointments Appointment Date:04/06/2024 02:15:00 PM Scheduled Provider: Location[facility] Appointment Type:ONC Injection (FT) Appointment Date:04/13/2024 01:15:00 PM Scheduled Provider: Location[facility] Appointment Type:ONC Injection (FT) Appointment Date:04/20/2024 01:00:00 PM Scheduled Provider: Location[facility] Appointment Type:ONC Injection (FT) Appointment Date:04/27/2024 02:30:00 PM Scheduled Provider: Location[facility] Appointment Type:ONC Injection (FT) Appointment Date:05/04/2024 02:00:00 PM Scheduled Provider: Location[facility] Appointment Type:ONC Injection (FT) Appointment Date:05/11/2024 09:20:00 AM Scheduled Provider:Dyan Ernandez MD Location[facility] Appointment Type:ONC Office Visit 20 (FT) Appointment Date:05/18/2024 01:00:00 PM Scheduled Provider: Location[facility] Appointment Type:ONC Injection (FT) Future Scheduled Tests Laboratory* CBC w/ Auto Diff 05/11/24 * Ferritin 05/11/24 * Folate Level 05/11/24 * Iron Level 05/11/24 * Iron Percent Saturation 05/11/24 * Transferrin 05/11/24 * Vitamin B12 Level 05/11/24 [facility] Evaluation + Plan note Future Appointments Appointment Date:04/06/2024 11:00:00 AM Scheduled Provider: Location[facility] Appointment Type:ONC Venofer (FT) Appointment Date:04/06/2024 01:00:00 PM Scheduled Provider: Location[facility] Appointment Type:ONC Injection (FT) Appointment Date:04/13/2024 11:00:00 AM Scheduled Provider: Location[facility] Appointment Type:ONC Venofer (FT) Appointment Date:04/13/2024 01:15:00 PM Scheduled Provider: Location[facility] Appointment Type:ONC Injection (FT) Appointment Date:04/20/2024 11:00:00 AM Scheduled Provider: Location[facility] Appointment Type:ONC Venofer (FT) Appointment Date:04/20/2024 01:00:00 PM Scheduled Provider: Location[facility] Appointment Type:ONC Injection (FT) Appointment Date:04/27/2024 02:30:00 PM Scheduled Provider: Location[facility] Appointment Type:ONC Injection (FT) Appointment Date:05/04/2024 02:00:00 PM Scheduled Provider: Location[facility] Appointment Type:ONC Injection (FT) Appointment Date:05/11/2024 09:20:00 AM Scheduled Provider:Dyan Ernandez MD Location[facility] Appointment Type:ONC Office Visit 20 (FT) Appointment Date:05/18/2024 01:00:00 PM Scheduled Provider: Location[facility] Appointment Type:ONC Injection (FT) Diagnostic Tests Pending * Urine Culture 04/01/24 Future Scheduled Tests Laboratory* CBC w/ Auto Diff 05/11/24 * Ferritin 05/11/24 * Folate Level 05/11/24 * Iron Level 05/11/24 * Iron Percent Saturation 05/11/24 * Transferrin 05/11/24 * Vitamin B12 Level 05/11/24 [facility] Evaluation + Plan note Future Appointments Appointment Date:04/20/2024 11:00:00 AM Scheduled Provider: Location[facility] Appointment Type:ONC Venofer (FT) Appointment Date:04/20/2024 01:00:00 PM Scheduled Provider: Location[facility] Appointment Type:ONC Injection (FT) Appointment Date:04/27/2024 02:30:00 PM Scheduled Provider: Location[facility] Appointment Type:ONC Injection (FT) Appointment Date:05/04/2024 02:00:00 PM Scheduled Provider: Location[facility] Appointment Type:ONC Injection (FT) Appointment Date:05/11/2024 09:20:00 AM Scheduled Provider:Dyan Ernandez MD Location[facility] Appointment Type:ONC Office Visit 20 (FT) Appointment Date:05/18/2024 01:00:00 PM Scheduled Provider: Location[facility] Appointment Type:ONC Injection (FT) Future Scheduled Tests Laboratory* CBC w/ Auto Diff 05/11/24 * Ferritin 05/11/24 * Folate Level 05/11/24 * Iron Level 05/11/24 * Iron Percent Saturation 05/11/24 * Transferrin 05/11/24 * Vitamin B12 Level 05/11/24 [facility] evaluation + Plan note Future Appointments Appointment Date:04/27/2024 02:30:00 PM Scheduled Provider: Location[facility] Appointment Type:ONC Injection (FT) Appointment Date:05/04/2024 02:00:00 PM Scheduled Provider: Location[facility] Appointment Type:ONC Injection (FT) Appointment Date:05/18/2024 01:00:00 PM Scheduled Provider: Location[facility] Appointment Type:ONC Injection (FT) Appointment Date:06/15/2024 02:00:00 PM Scheduled Provider:Dyan Ernandez MD Location[facility] Appointment Type:ONC Office Visit 20 (FT) Future Scheduled Tests Laboratory* CBC w/ Auto Diff 06/15/24 * Ferritin 06/15/24 * Folate Level 06/15/24 * Iron Level 06/15/24 * Iron Percent Saturation 06/15/24 * Transferrin 06/15/24 * Vitamin B12 Level 06/15/24 [facility] evaluation + Plan note Future Appointments Appointment Date:05/04/2024 02:00:00 PM Scheduled Provider: Location[facility] Appointment Type:ONC Injection (FT) Appointment Date:05/18/2024 01:00:00 PM Scheduled Provider: Location[facility] Appointment Type:ONC Injection (FT) Appointment Date:06/15/2024 02:00:00 PM Scheduled Provider:Dyan Ernandez MD Location[facility] Appointment Type:ONC Office Visit 20 (FT) Future Scheduled Tests Laboratory* CBC w/ Auto Diff 06/15/24 * Ferritin 06/15/24 * Folate Level 06/15/24 * Iron Level 06/15/24 * Iron Percent Saturation 06/15/24 * Transferrin 06/15/24 * Vitamin B12 Level 06/15/24 [facility] evaluation + Plan note Future Appointments Appointment Date:05/11/2024 02:00:00 PM Scheduled Provider: Location[facility] Appointment Type:ONC Injection (FT) Appointment Date:05/18/2024 01:00:00 PM Scheduled Provider: Location[facility] Appointment Type:ONC Injection (FT) Appointment Date:06/15/2024 02:00:00 PM Scheduled Provider:Dyan Ernandez MD Location[facility] Appointment Type:ONC Office Visit 20 (FT) Appointment Date:06/15/2024 02:15:00 PM Scheduled Provider: Location[facility] Appointment Type:ONC Injection (FT) Future Scheduled Tests Laboratory* CBC w/ Auto Diff 06/15/24 * Ferritin 06/15/24 * Folate Level 06/15/24 * Iron Level 06/15/24 * Iron Percent Saturation 06/15/24 * Transferrin 06/15/24 * Vitamin B12 Level 06/15/24 [facility] evaluation + Plan note Future Appointments Appointment Date:05/18/2024 01:00:00 PM Scheduled Provider: Location[facility] Appointment Type:ONC Injection (FT) Appointment Date:06/15/2024 02:00:00 PM Scheduled Provider:Dyan Ernandez MD Location[facility] Appointment Type:ONC Office Visit 20 (FT) Appointment Date:06/15/2024 02:15:00 PM Scheduled Provider: Location[facility] Appointment Type:ONC Injection (FT) Future Scheduled Tests Laboratory* CBC w/ Auto Diff 06/15/24 * Ferritin 06/15/24 * Folate Level 06/15/24 * Iron Level 06/15/24 * Iron Percent Saturation 06/15/24 * Transferrin 06/15/24 * Vitamin B12 Level 06/15/24 [facility] evaluation + Plan note Future Appointments Appointment Date:06/15/2024 02:00:00 PM Scheduled Provider:Dyan Ernandez MD Location[facility] Appointment Type:ONC Office Visit 20 (FT) Appointment Date:06/15/2024 02:15:00 PM Scheduled Provider: Location[facility] Appointment Type:ONC Injection (FT) Future Scheduled Tests Laboratory* CBC w/ Auto Diff 06/15/24 * Ferritin 06/15/24 * Folate Level 06/15/24 * Iron Level 06/15/24 * Iron Percent Saturation 06/15/24 * Transferrin 06/15/24 * Vitamin B12 Level 06/15/24 [facility] evaluation + Plan note Future Appointments Appointment Date:06/22/2024 09:00:00 AM Scheduled Provider:Awais BAI, Dyan Cid Location[facility] Appointment Type:ONC Office Visit 20 (FT) Appointment Date:06/22/2024 09:00:00 AM Scheduled Provider: Location[facility] Appointment Type:ONC Injection (FT) Future Scheduled Tests Laboratory* CBC w/ Auto Diff 06/15/24 * Ferritin 06/15/24 * Folate Level 06/15/24 * Iron Level 06/15/24 * Iron Percent Saturation 06/15/24 * Transferrin 06/15/24 * Vitamin B12 Level 06/15/24 [facility] evaluation + Plan note Future Appointments Appointment Date:06/22/2024 09:00:00 AM Scheduled Provider:Dyan Ernandez MD Location[facility] Appointment Type:ONC Office Visit 20 (FT) Appointment Date:06/22/2024 09:00:00 AM Scheduled Provider: Location[facility] Appointment Type:ONC Injection (FT) [facility] evaluation + Plan note Future Appointments Appointment Date:09/21/2024 09:20:00 AM Scheduled Provider:Dyan Ernandez MD Location[facility] Appointment Type:ONC Office Visit 20 (FT) Future Scheduled Tests Laboratory* CBC w/ Auto Diff 09/14/24 * Ferritin 09/14/24 * Folate Level 09/14/24 * Iron Level 09/14/24 * Iron Percent Saturation 09/14/24 * Transferrin 09/14/24 * Vitamin B12 Level 09/14/24 [facility] Evaluation + Plan note Future Appointments Appointment Date:08/05/2023 03:00:00 PM Scheduled Provider: Location[facility] Appointment Type:ONC Office Visit 30 (FT) Appointment Date:08/08/2023 09:00:00 AM Scheduled Provider:Linda Lutz [facility] Appointment Date:04/13/2024 11:00:00 AM Scheduled Provider: Location[facility] Appointment Type:ONC Venofer (FT) Appointment Date:04/13/2024 01:15:00 PM Scheduled Provider: Location[facility] Appointment Type:ONC Injection (FT) Appointment Date:04/20/2024 11:00:00 AM Scheduled Provider: Location[facility] Appointment Type:ONC Venofer (FT) Appointment Date:04/20/2024 01:00:00 PM Scheduled Provider: Location[facility] Appointment Type:ONC Injection (FT) Appointment Date:04/27/2024 02:30:00 PM Scheduled Provider: Location[facility] Appointment Type:ONC Injection (FT) Appointment Date:05/04/2024 02:00:00 PM Scheduled Provider: Location[facility] Appointment Type:ONC Injection (FT) Appointment Date:05/11/2024 09:20:00 AM Scheduled Provider:Dyan Ernandez MD Location[facility] Appointment Type:ONC Office Visit 20 (FT) Appointment Date:05/18/2024 01:00:00 PM Scheduled Provider: Location[facility] Appointment Type:ONC Injection (FT) Future Scheduled Tests Laboratory* CBC w/ Auto Diff 05/11/24 * Ferritin 05/11/24 * Folate Level 05/11/24 * Iron Level 05/11/24 * Iron Percent Saturation 05/11/24 * Transferrin 05/11/24 * Vitamin B12 Level 05/11/24 [facility] Evaluation note* Diagnosis Acquired hypothyroidism- Primary Unspecified hypothyroidism [facility] Diagnosis Class 3 severe obesity due to excess calories without serious comorbidity with body mass index (BMI) of 40.0 to 44.9 in adult ([facility])- Primary [facility]* Diagnosis Class 2 obesity due to excess calories with body mass index (BMI) of 38.0 to 38.9 in adult, unspecified whether serious comorbidity present- Primary [facility]* Diagnosis Class 2 obesity due to excess calories with body mass index (BMI) of 38.0 to 38.9 in adult, unspecified whether serious comorbidity present- Primary Acquired hypothyroidism Unspecified hypothyroidism Hyperandrogenemia Other ovarian hyperfunction [facility] Diagnosis Acquired hypothyroidism- Primary Unspecified hypothyroidism documented in this encounter [facility] note* Diagnosis Supraventricular tachycardia during ([facility])- Primary 31 weeks gestation of related condition in third trimester Gastroesophageal reflux disease, unspecified whether esophagitis present Obesity during in third trimester Hypothyroid in , antepartum ([facility]) Advanced maternal age in multigravida, third trimester documented in this encounter [facility]* Diagnosis related condition in third trimester- Primary 33 weeks gestation of Supraventricular tachycardia during ([facility]/HCC) Gastroesophageal reflux disease, unspecified whether esophagitis present Obesity during in third trimester Hypothyroid in , antepartum ([facility]) Advanced maternal age in multigravida, third trimester documented in this encounter [facility] HealthcareEvaluation note* Diagnosis Maternal arrhythmia affecting in third trimester, antepartum ([facility])- Primary SVT (supraventricular tachycardia) ([facility]) Other specified cardiac dysrhythmias 33 weeks gestation of ([facility]) Chronic hypertension Obesity complicating childbirth ([facility]) Hypothyroidism, unspecified type Bipolar affective disorder, remission status unspecified (Multi) PCOS (polycystic ovarian syndrome) Polycystic ovaries SVT (supraventricular tachycardia) (CMS-HCC) Other specified cardiac dysrhythmias Paroxysmal atrial fibrillation (Multi) Atrial fibrillation Never smoked tobacco with 35 completed weeks gestation ([facility]-H[facility]) documented in this encounter [facility] Work Phone: Evaluation note* Diagnosis Maternal arrhythmia affecting in third trimester, antepartum ([facility])- Primary SVT (supraventricular tachycardia) (CMS-HCC) Other specified cardiac dysrhythmias 33 weeks gestation of ([facility]) Chronic hypertension Obesity complicating childbirth ([facility]) Hypothyroidism, unspecified type Bipolar affective disorder, remission status unspecified (Multi) PCOS (polycystic ovarian syndrome) Polycystic ovaries SVT (supraventricular tachycardia) ([facility]-H[facility])- Primary Other specified cardiac dysrhythmias with 35 completed weeks gestation ([facility]) state ([facility]) Routine follow-up Abnormal EKG Nonspecific abnormal electrocardiogram (ECG) (EKG) Recent URI Infection requiring contact isolation precautions Fatty liver Other chronic nonalcoholic liver disease state ([facility]) Routine follow-up documented in this encounter [facility] Work Phone: Evaluation note* Diagnosis Onset Date Resolution Status Admit Date Chest pain acute June 03, 2024 9:04am [facility] Work Phone: Evaluation note* Diagnosis Maternal arrhythmia affecting in third trimester, antepartum ([facility])- Primary SVT (supraventricular tachycardia) ([facility]) Other specified cardiac dysrhythmias 33 weeks gestation of ([facility]) Chronic hypertension Obesity complicating childbirth ([facility]) Hypothyroidism, unspecified type Bipolar affective disorder, remission status unspecified (Multi) PCOS (polycystic ovarian syndrome) Polycystic ovaries SVT (supraventricular tachycardia) ([facility])- Primary Other specified cardiac dysrhythmias with 35 completed weeks gestation ([facility]) state ([facility]) Routine follow-up Abnormal EKG Nonspecific abnormal electrocardiogram (ECG) (EKG) Recent URI Infection requiring contact isolation precautions Fatty liver Other chronic nonalcoholic liver disease state ([facility]) Routine follow-up SVT (supraventricular tachycardia) ([facility]) Other specified cardiac dysrhythmias Essential hypertension Unspecified essential hypertension BMI 39.0-39.9,adult Never smoked tobacco documented in this encounter [facility] Work Phone: Evaluation note* Diagnosis related condition in third trimester- Primary 29 weeks gestation of Gastroesophageal reflux disease, unspecified whether esophagitis present Obesity during in third trimester Hypothyroid in , antepartum (CMS/HCC) Advanced maternal age in multigravida, third trimester documented in this encounter [facility] HealthcareEvaluation note* Diagnosis Maternal arrhythmia affecting in third trimester, antepartum ([facility])- Primary SVT (supraventricular tachycardia) ([facility]) Other specified cardiac dysrhythmias 33 weeks gestation of ([facility]) Chronic hypertension Obesity complicating childbirth ([facility]) Hypothyroidism, unspecified type Bipolar affective disorder, remission status unspecified (Multi) PCOS (polycystic ovarian syndrome) Polycystic ovaries with 35 completed weeks gestation ([facility]) state ([facility]) Routine follow-up Abnormal EKG Nonspecific abnormal electrocardiogram (ECG) (EKG) Recent URI Infection requiring contact isolation precautions Fatty liver Other chronic nonalcoholic liver disease SVT (supraventricular tachycardia) ([facility])- Primary Other specified cardiac dysrhythmias Chronic hypertension Hypothyroidism, unspecified type Encounter for visit Bipolar affective disorder, currently depressed, mild (Multi) Bipolar I disorder, most recent episode (or current) depressed, mild PCOS (polycystic ovarian syndrome) Polycystic ovaries documented in this encounter [facility] Work Phone: Evaluation note* Diagnosis SVT (supraventricular tachycardia) ([facility])- Primary Other specified cardiac dysrhythmias SVT (supraventricular tachycardia) ([facility]) Other specified cardiac dysrhythmias documented in this encounter [facility] Work Phone: Evaluation note* Diagnosis related condition, second trimester- Primary 26 weeks gestation of Gastroesophageal reflux disease, unspecified whether esophagitis present Other obesity affecting in second trimester Hypothyroid in , antepartum ([facility]/HCC) Advanced maternal age in multigravida, second trimester Supraventricular tachycardia during ([facility]) Screening for diabetes mellitus documented in this encounter [facility] HealthcareEvaluation note* Diagnosis examination following vaginal delivery- Primary Screening for malignant neoplasm of cervix Screening for malignant neoplasm of the cervix Encounter for screening for human papillomavirus (HPV) Family planning counseling Other general counseling and advice for contraceptive management Oral contraception initiation Current moderate episode of major depressive disorder, unspecified whether recurrent (HCC) (CMS/HCC) documented in this encounter [facility]Evaluation note* Diagnosis related condition, second trimester Gastroesophageal reflux disease, unspecified whether esophagitis present documented in this encounter [facility] HealthcareEvaluation note* Diagnosis Tendinitis, de Quervain's- Primary Left wrist pain Pain in joint, forearm documented in this encounter [facility] HealthcareEvaluation note* Diagnosis Encounter for IUD insertion- Primary Insertion of intrauterine contraceptive device documented in this encounter [facility] HealthcareEvaluation note* Diagnosis De Quervain's tenosynovitis, left- Primary Right wrist pain Pain in joint, forearm De Quervain's tenosynovitis, right documented in this encounter [facility] HealthcareHospital course Narrative No data available for this section [facility] Discharge instructions No data available for this section [facility] Progress note No data available for this section [facility] Reason for visit Narrative* Auth/Cert (Routine) Specialty Diagnoses / Procedures Referred By Deisy niño Referred To Contact Diagnoses SVT (supraventricular tachycardia) ([facility]) svt Procedures [place] [address] [place] [address] Phone: tel: fax: [facility] [address] [address] [place] [address] Phone: tel: Referral ID Status Reason Start Date Expiration Date Visits Re quested Visits Authorized [id number] 1 1 [facility] Work Phone: Summary Purpose Family History No Family History Records FoundNo Family History Records Found No data available for this section No data available for this section No data available for this section No data available for this section No data available for this section No data available for this section No data available for this section No data available for this section No data available for this section No data available for this section No data available for this section No data available for this section No data available for this section No data available for this section No Family History Records FoundNo Family History Records FoundNo Family History Records FoundNo Family History Records FoundNo Family History Records Found No data available for this section No Family History Records Found No data available for this section No Family History Records FoundNo Family History Records FoundNo Family History Records FoundNo Family History Records FoundNo Family History Records FoundNo Family History Records Found No data available for this section No data available for this section No Family History Records FoundNo Family History Records FoundNo Family History Records FoundNo Family History Records Found No data available for this section No Family History Records FoundNo Family History Records FoundNo Family History Records FoundNo Family History Records Found No data available for this section No Family History Records FoundNo Family History Records FoundNo Family History Records FoundNo Family History Records FoundNo Family History Records FoundNo Family History Records FoundNo Family History Records FoundNo Family History Records FoundNo Family History Records FoundNo Family History Records FoundNo Family History Records FoundNo Family History Records FoundNo Family History Records Found No data available for this section No data available for this section No Family History Records FoundNo Family History Records FoundNo Family History Records FoundNo Family History Records FoundNo Family History Records FoundNo Family History Records FoundNo Family History Records FoundNo Family History Records FoundNo Family History Records FoundNo Family History Records FoundNo Family History Records FoundNo Family History Records FoundNo Family History Records Found No data available for this section No data available for this section No data available for this section No data available for this section No data available for this section No data available for this section No data available for this section No data available for this section No Family History Records FoundNo Family History Records FoundNo Family History Records FoundNo Family History Records FoundNo Family History Records FoundNo Family History Records FoundNo Family History Records Found No data available for this section No Family History Records FoundNo Family History Records FoundNo Family History Records FoundNo Family History Records FoundNo Family History Records FoundNo Family History Records FoundNo Family History Records FoundNo Family History Records FoundNo Family History Records Found No data available for this section No data available for this section No data available for this section No data available for this section No Family History Records FoundNo Family History Records FoundNo Family History Records FoundNo Family History Records FoundNo Family History Records FoundNo Family History Records Found No data available for this section No Family History Records Found No data available for this section No data available for this section No Family History Records FoundNo Family History Records FoundNo Family History Records FoundNo Family History Records FoundNo Family History Records FoundNo Family History Records FoundNo Family History Records Found No data available for this section No data available for this section No Family History Records FoundNo Family History Records FoundNo Family History Records FoundNo Family History Records FoundNo Family History Records Found Advance Directives No Advanced Directives Records Found Date Activated Date Inactivated Comments 04/17/2024 11:25 PM Question Answer Comments Plan of Care: Code Status Discussion Completed Decision Maker: Patient Date Activated Date Inactivated Comments 05/24/2024 1:03 PM Date Activated Date Inactivated Comments 04/17/2024 11:25 PM 05/24/2024 1:03 PM Question Answer Comments Plan of Care: Code Status Discussion Completed Decision Maker: Patient Documents on File Type Date 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 Advance Directive(s) Advance Directive Response Recorded Date/ Time Advance Directives No June 23, 2018 9:15am Date Activated Date Inactivated Comments 05/24/2024 1:03 PM Question Answer Comments Plan of Care: Code Status Discussion Completed Decision Maker: Patient Date Activated Date Inactivated Comments 04/17/2024 11:25 PM 05/24/2024 1:03 PM Question Answer Comments Plan of Care: Code Status Discussion Completed Decision Maker: Patient Chief Complaint and Reason for Visit Chief Complaint Admit Date chest congestion June 03, 2024 9:04am Reason for Visit Admit Date Chest pain June 03, 2024 9:04am Reason for Referral Specialty Diagnoses / Procedures Referred By Contac t Referred To Contact Cardiology Diagnoses SVT (supraventricular tachycardia) ([place]) Procedures Holter [place] [address] [place] [address] Referral ID Status Reason Start Date Expiration Date V isits Requested Visits Authorized [id number] Pending Review 04/20/2024 04/20/2025 1 1 Specialty Diagnoses / Procedures Referred By Contac t Referred To Contact Cardiology Diagnoses SVT (supraventricular tachycardia) ([facility]) [place] [address] [place] [address] Referral ID Status Reason Start Date Expiration Date Visits Requested Visits Authorized [id number] Authorized Specialty Services Required 04/20/2024 04/20/2025 1 1 Additional Source Comments INFORMATION SOURCE (unrecogn ized section and content) DATE CREATED AUTHOR 01/09/2018 [facility] DATE CREATED AUTHOR AUTHOR'S ORGANIZ ATION 12/09/2021 [facility] DATE CREATED AUTHOR AUTHOR'S ORGANIZ ATION 01/21/2024 [facility] DATE CREATED AUTHOR AUTHOR'S ORGANIZ ATION 01/23/2024 [facility] DATE CREATED AUTHOR AUTHOR'S ORGANIZ ATION 02/12/2024 [facility] DATE CREATED AUTHOR AUTHOR'S ORGANIZ ATION 03/26/2024 [facility] DATE CREATED AUTHOR AUTHOR'S ORGANIZ ATION 03/27/2024 [facility] DATE CREATED AUTHOR AUTHOR'S ORGANIZ ATION 03/30/2024 [facility] DATE CREATED AUTHOR AUTHOR'S ORGANIZ ATION 03/31/2024 [facility] DATE CREATED AUTHOR AUTHOR'S ORGANIZ ATION 04/03/2024 [facility] DATE CREATED AUTHOR AUTHOR'S ORGANIZ ATION 04/04/2024 [facility] DATE CREATED AUTHOR AUTHOR'S ORGANIZ ATION 04/07/2024 [facility] DATE CREATED AUTHOR AUTHOR'S ORGANIZ ATION 04/18/2024 [facility] DATE CREATED AUTHOR AUTHOR'S ORGANIZ ATION 04/22/2024 [facility] DATE CREATED AUTHOR AUTHOR'S ORGANIZ ATION 05/25/2024 [facility] DATE CREATED AUTHOR AUTHOR'S ORGANIZ ATION 05/27/2024 [facility] DATE CREATED AUTHOR AUTHOR'S ORGANIZ ATION 06/01/2024 [facility] DATE CREATED AUTHOR AUTHOR'S ORGANIZ ATION 06/21/2024 [facility] DATE CREATED AUTHOR AUTHOR'S ORGANIZ ATION 06/24/2024 [facility] DATE CREATED AUTHOR AUTHOR'S ORGANIZ ATION 07/01/2024 [facility] DATE CREATED AUTHOR AUTHOR'S ORGANIZ ATION 07/04/2024 [facility] DATE CREATED AUTHOR AUTHOR'S ORGANIZ ATION 07/12/2024 [facility] DATE CREATED AUTHOR AUTHOR'S ORGANIZ ATION 08/07/2024 [facility] DATE CREATED AUTHOR AUTHOR'S ORGANIZ ATION 09/01/2024 [facility] DATE CREATED AUTHOR AUTHOR'S ORGANIZ ATION 09/04/2024 [facility] Source Comments (unrecognize d section and content) In the event this informatio n is protected by the Federal Confidentiality of Alcohol and Drug Abuse Patient Records regulations: The Federal rules restrict any use of the information to criminally investigate or prosecute any alcohol or drug abuse patient.[facility] the event this information is protected by the Federal Confidentiality of Alcohol and Drug Abuse Patient Records regulations: The Federal rules restrict any use of the information to criminally investigate or prosecute any alcohol or drug abuse patient.[facility] the event this information is protected by the Federal Confidentiality of Alcohol and Drug Abuse Patient Records regulations: The Federal rules restrict any use of the information to criminally investigate or prosecute any alcohol or drug abuse patient.[facility] the event this information is protected by the Federal Confidentiality of Alcohol and Drug Abuse Patient Records regulations: The Federal rules restrict any use of the information to criminally investigate or prosecute any alcohol or drug abuse patient.[facility] the event this information is protected by the Federal Confidentiality of Alcohol and Drug Abuse Patient Records regulations: The Federal rules restrict any use of the information to criminally investigate or prosecute any alcohol or drug abuse patient.[facility] the event this information is protected by the Federal Confidentiality of Alcohol and Drug Abuse Patient Records regulations: The Federal rules restrict any use of the information to criminally investigate or prosecute any alcohol or drug abuse patient.[facility] the event this information is protected by the Federal Confidentiality of Alcohol and Drug Abuse Patient Records regulations: The Federal rules restrict any use of the information to criminally investigate or prosecute any alcohol or drug abuse patient.[facility] the event this information is protected by the Federal Confidentiality of Alcohol and Drug Abuse Patient Records regulations: The Federal rules restrict any use of the information to criminally investigate or prosecute any alcohol or drug abuse patient.[facility] the event this information is protected by the Federal Confidentiality of Alcohol and Drug Abuse Patient Records regulations: The Federal rules restrict any use of the information to criminally investigate or prosecute any alcohol or drug abuse patient.[facility] Reason for Visit (unrecogniz ed section and content) Reason Comments Refill Request Reason Comments Medical Nutrition Therapy Weight managem ent Specialty Diagnoses / Procedures Referred By Contac t Referred To Contact Diagnoses Acquired hypothyroidism Hyperandrogenemia Procedures ENDOCRINOLOGY DIETITIAN VISIT (MNT) MEDICAL NUTRITION ASSMT&IVNTJ INDIV EACH 15 IN MEDICAL NUTRITION ASSMT&IVNTJ INDIV EACH 15 IN MEDICAL NUTRITION ASSMT&IVNTJ INDIV EACH 15 IN MEDICAL NUTRITION ASSMT&IVNTJ INDIV EACH 15 IN Fátima Williamson V, MD [address] [place] [address] Referral ID Status Reason Start Date Expiration Date V isits Requested Visits Authorized [id number] Closed PCP Requested Referral 11/21/2022 02/19/2023 1 1 Reason Comments Results Reason Comments Thyroid Problem Reason Comments New Patient Visit SVT Specialty Diagnoses / Procedures Referred By Contac t Referred To Contact Cardiology Diagnoses SVT (supraventricular tachycardia) ([facility]) [place] [address] [facility] 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 [place] [phone] Phone: tel: fax: Referral ID Status Reason Start Date Expiration Date Visits Requested Visits Authorized [id number] Authorized Specialty Services Required 04/20/2024 04/20/2025 1 1 Reason Comments Follow-up 6 weeks Specialty Diagnoses / Procedures Referred By Deisy niño Referred To Contact Cardiology Diagnoses SVT (supraventricular tachycardia) ([place]) Procedures Follow Up In Cardiology Rubén Núñez MD [address] [place] [address] [address], [address] [address] Phone: tel: fax: Rubén Núñez MD [address] [place] [address] [address], [address] [address] Phone: tel: fax: Referral ID Status Reason Start Date Expiration Date V isits Requested Visits Authorized [id number] Authorized 05/19/2024 05/19/2025 1 1 Reason Comments Follow-up Specialty Diagnoses / Procedures Referred By Deisy niño Referred To Contact Diagnoses SVT (supraventricular tachycardia) ([place]) SVT Procedures No [place] [address] [place] [address] [facility] [address] [address] [place] [address] Referral ID Status Reason Start Date Expiration Date Visits Re quested Visits Authorized [id number] 1 1 Reason Comments Follow-up Patient here for 6 week . She delivered on 05/25/24 at [facility] at 36 weeks 2 days,Vaginally; to a male that weighted 6#4oz. She is bottle feeding-nutramigen. Denies intercourse since delivery. Periods not returned. Pt interested in BC. Pt c/o pp depression. Pt has appt at with her psychiatrist tomorrow to discuss her symptoms and bipolar disease. Denies any other problems. Would like Progesterone IUD and OCP in the meantime Reason Comments Med Refill Reason Comments Pain Reason Comments Pain Care Teams (unrecognized sec tion and content) Membership Sales Advisor Relationship Specialty Start Date End Date Guerda Metcalf MD [address] [place] [address] PCP - General Cardiology 09/17/[address] [facility] [address] [facility] [place] [address] Primary Staff Physician Cardiology 10/07/18 Jj Dyer, DIRECTOR OF PREMIUM SEAT SALES [address] [place] [address] Referring Family Practice 12/23/19 Membership Sales Advisor Relationship Specialty Start Date End Date Guerda Metcalf MD [address] [place] [address] PCP - General Cardiology 09/17/[address] [facility] [address] [facility] [place] [address] Primary Staff Physician Cardiology 10/07/18 Jj Dyer, DIRECTOR OF PREMIUM SEAT SALES [address] [place] [address] Referring Family Practice 12/23/19 Membership Sales Advisor Relationship Specialty Start Date End Date Guerda Metcalf MD [address] [place] [address] PCP - General Cardiology 09/17/[address] [facility] [address] [facility] [place] [address] Primary Staff Physician Cardiology 10/07/18 Jj Dyer, DIRECTOR OF [employer] SALES [address] [place] [address] Referring Family Medicine 12/23/19 Membership Sales Advisor Relationship Specialty Start Date End Date Guerda Metcalf MD [address] [place] [address] PCP - General Cardiology 09/17/07 [facility] [address] [place] [address] Primary Staff Physician Cardiology 10/07/18 Jj Dyer, DIRECTOR OF PREMIUM SEAT SALES [address] [place] [address] Referring Family Medicine 12/23/19 Membership Sales Advisor Relationship Specialty Start Date End Date Guerda Metcalf MD [address] [place] [address] PCP - General Cardiology 09/17/07 [facility] [address] [place] [address] Primary Staff Physician Cardiology 10/07/18 Jj Dyer, DIRECTOR OF PREMIUM SEAT SALES [address] [place] [address] Referring Family Medicine 12/23/19 Membership Sales Advisor Relationship Specialty Start Date End Date Guerda Metcalf MD [address] [place] [address] PCP - General [facility]iology 09[facility]17[facility]07 [facility] [address] [place] [address] Primary Staff Physician Cardiology 10/07/18 Jj Dyer, DIRECTOR OF PREMIUM SEAT SALES [address] [place] [address] Referring Family Medicine 12/23/19 Membership Sales Advisor Relationship Specialty Start Date End Date Guerda Metcalf MD [address] [place] [address] PCP - General Cardiology 09/17/07 [facility] [address] [place] [address] Primary Staff Physician Cardiology 10/07/18 Jj Dyer, DIRECTOR OF PREMIUM SEAT SALES [address] [place] [address] Referring Family Medicine 12/23/19 Membership Sales Advisor Relationship Specialty Start Date End Date Guerda Metcalf MD [address] [place] [address] PCP - General Cardiology 09/17/07 [facility]el[facility] [address] [place] [address] Primary Staff Physician Cardiology 10/07/18 Jj Dyer, DIRECTOR OF PREMIUM SEAT SALES [address] [place] [address] Referring Family Medicine 12/23/19 Membership Sales Advisor Relationship Specialty Start Date End Date Guerda Metcalf MD [address] [place] [address] PCP - General Cardiology 09/17/07 [facility] [address] [place] [address] Primary Staff Physician Cardiology 10/07/18 Jj Dyer, DIRECTOR OF PREMIUM SEAT SALES [address] [place] [address] Referring Family Medicine 12/23/19 Membership Sales Advisor Relationship Specialty Start Date End Date Dario Boyle MD [address] [place] [address] PCP - General Family Medicine 08/22/23 Membership Sales Advisor Relationship Specialty Start Date End Date Dario Boyle MD [address] [place] [address] PCP - General Family Medicine 08/22/23 Membership Sales Advisor Relationship Specialty Start Date End Date Dario Boyle MD [address] [place] [address] PCP - General Family Medicine 08/22/23 Team Status: Active Member Role Status Dates Jj Dyer NP Primary Care Provider Active Team Status: Inactive Member Role Status Dates Jj Dyer NP Primary Care Provider Active St art: June 03, 2024 End: June 03, 2024 Kiara Rivas PA-C Attending Provider Active St art: June 03, 2024 End: June 03, 2024 Membership Sales Advisor Relationship Specialty Start Date End Date Kayla Goldstein RN Care Needle Valve Operator 05/28/24 Membership Sales Advisor Relationship Specialty Start Date End Date Dario Boyle MD [address] [place] [address] PCP - General Family Medicine 08/22/23 Membership Sales Advisor Relationship Specialty Start Date End Date Kayla Goldstein RN Care Needle Valve Operator 05/28/24 Membership Sales Advisor Relationship Specialty Start Date End Date Dario Boyle MD [address] [place] [address] PCP - General Family Medicine 08/22/23 Membership Sales Advisor Relationship Specialty Start Date End Date Dario Boyle MD [address] [place] [address] PCP - General Family Medicine 08/22/23 Membership Sales Advisor Relationship Specialty Start Date End Date Dario Boyle MD [address] [place] [address] PCP - General [facility] Medicine 08/22/23 Membership Sales Advisor Relationship Specialty Start Date End Date Dario Boyle MD [address] [place] [address] PCP - General [facility] 08/22/23 Membership Sales Advisor Relationship Specialty Start Date End Date Dario Boyle MD [address] [place] [address] PCP - [facility] 08/22/23 Membership Sales Advisor Relationship Specialty Start Date End Date Dario Boyle MD [address] [place] [address] PCP - [facility] Medicine 08/22/23 Membership Sales Advisor Relationship Specialty Start Date End Date Dario Boyle MD [address] [place] [address] PCP - General [facility] 08/22/23 Scheduled Active and Recently Administ ered Medications (unrecognized section and content) Medication Order 05/25/2024 05/26/2024 05/27/2024 acetaminophen (Tylenol) tablet 975 mg 975 mg, oral, Every 6 hours, First dose on Sat05/25/24 at 0945, , Give with Ibuprofen, If ordered PRN for pain, nurse is permitted to administer this medication for higher pain scores based on patient preference? Yes 0943 (Given - Provider: Fina Clark RN)1553 (Given - Provider: Vane Oneill RN)2143 (Given - Provider: Kendall rTinidad RN) 0341 (Given - Provider: Kendall Trinidad RN)0845 (Given - Provider: John Walton RN)1558 (Given - Provider: John Walton RN)2203 (Given - Provider: Cinthya Whiting RN) 0424 (Given - Provider: Cinthya Whiting RN)1059 (Given - Provider: Aixa Banuelos RN)1654 (Not Given - Provider: Dilma Marino RN - Reason: Other - Comment: time adjusted)1712 (Given - Provider: Dilma Marino RN)2300 (Due - Provider: Fariha Garcia, MeliaD) calcium carbonate (Tums) chewable tablet 500 mg 500 mg, oral, 2 times daily, First dose on Sat05/26/24 at 1830, Each 500 mg calcium carbonate tablet = 200 mg of elemental calcium. 1829 (Given - Provider: John Walton RN) 0631 (Given - Provider: Cinthya Whiting RN)1938 (Not Given - Provider: Cinthya Whiting RN - Reason: Patient/family refused) cyclobenzaprine (Flexeril) tablet 10 mg (COMPLETED) 10 mg, oral, Once, On Sat05/25/24 at 0015, For 1 dose 0002 (Given - Provider: Minnie Prieto RN) diphenhydrAMINE (BENADryl) capsule 25 mg (COMPLETED) 25 mg, oral, Once, On Sat05/25/24 at 0015, For 1 dose 0002 (Given - Provider: Minnie Prieto RN) enoxaparin (Lovenox) syringe 60 mg 60 mg, subcutaneous, Every 24 hours, First dose on Sat05/26/24 at 0930, , Wait 24 hours after neuraxial catheter placement AND 4 hours after neuraxial catheter removal. 0842 (Given - Provider: John Walton RN) 0852 (Given - Provider: Aixa Banuelos RN) famotidine (Pepcid) tablet 20 mg 20 mg, oral, 2 times daily, First dose on Sat05/26/24 at 1830 1829 (Given - Provider: John Walton RN) 0631 (Given - Provider: Cinthya Whiting RN)1843 (Given - Provider: Dilma Marino RN) famotidine PF (Pepcid) injection 20 mg (COMPLETED) 20 mg, intravenous, Administer over 2 Minutes, Once, On Sat05/25/24 at 0300, For 1 dose 0240 (Given - Provider: Minnie Prieto RN) ibuprofen tablet 600 mg 600 mg, oral, Every 6 hours, First dose on Sat05/25/24 at 0945, , Give with Acetaminophen, If ordered PRN for pain, nurse is permitted to administer this medication for higher pain scores based on patient preference? Yes 0943 (Given - Provider: Fina Clark RN)1553 (Given - Provider: Vane Oneill RN)2143 (Given - Provider: Kendall Trinidad RN) 0341 (Given - Provider: Kendall Trinidad RN)0845 (Given - Provider: John Walton RN)1558 (Given - Provider: John Walton RN)2203 (Given - Provider: Cinthya Whiting RN) 0424 (Given - Provider: Cinthya Whiting RN)1059 (Given - Provider: Aixa Banuelos RN)1712 (Given - Provider: Dilma Marino RN)2300 (Due - Provider: Fariha Garcia, PharmD) labetalol (Normodyne) tablet 100 mg 100 mg, oral, 2 times daily, First dose on 05/24/24 at 1330 0924 (Given - Provider: Fina Clark RN)214 (Given - Provider: Kendall Trinidad RN) 0842 (Given - Provider: John Walton RN)2052 (Given - Provider: Cinthya Whiting RN) 0852 (Given - Provider: Aixa Banuelos RN)2099 (Due) lamoTRIgine (LaMICtal) tablet 300 mg 300 mg, oral, Nightly, First dose on 05/24/24 at 2099 2142 (Given - Provider: Kendall Trinidad RN) 2052 (Given - Provider: Cinthya Whiting RN) 2099 (Due) levothyroxine (Synthroid, Levoxyl) tablet 137 mcg 137 mcg, oral, Daily, First dose on 05/24/24 at 1330 0924 (Given - Provider: Fina Clark RN - Comment: pt delivering) 0634 (Given - Provider: Kendall Trinidad RN) 0631 (Given - Provider: Cinthya Whiting RN) magnesium oxide (Mag-Ox) tablet 400 mg 400 mg, oral, Daily, First dose on Sat05/27/24 at 1930 1939 (Given - Provider: Cinthya Whiting RN) magnesium sulfate 4 g in sterile water for injection 100 mL (COMPLETED) 4 g, intravenous, at 25 mL/hr, Administer over 4 Hours, Once, On Sat05/27/24 at 1330, For 1 dose 1451 (New Bag - Provider: Aixa Banuelos RN)1455 (Stopped - Provider: Aixa Banuelos RN - Comment: patient said it hwang my vein . She wanted the infusion stopped and is requested PO magnesium replacement.)1851 (Due: Stopped - Provider: Aiax Banuelos RN) oral hydration solution 250 mL (CANCELED) 250 mL, oral, Every 4 hours scheduled, First dose on Sat05/24/24 at 1400, Pre-Delivery, Which fluid should be used for oral hydration? Water 0236 (Given - Provider: Minnie Prieto RN)0600 (Due) penicillin G potassium 3 Million Units in dextrose IV 50 mL (CANCELED)(Linked Group 1) 3 Million Units, intravenous, at 100 mL/hr, Administer over 30 Minutes, Every 4 hours, First dose on Sat05/24/24 at 1730, Pre-Delivery, Until delivery; to follow loading dose premix bag, Suspected Indication (Select all that apply): Medical Prophylaxis, Indications: Medical Prophylaxis 0240 (New Bag - Provider: Minnie Prieto RN)0346 (Stopped - Provider: Minnie Prieto RN)0604 (New Bag - Provider: Minnie Prieto RN)0634 (Due: Stopped - Provider: Minnie Prieto RN) Continuous Medication Order 05/25/2024 05/26/2024 05/27/2024 oxytocin (Pitocin) infusion in sodium chloride 0.9% 30 units/500 mL (CANCELED) 2-30 sen-units/min (2-30 mL/hr), intravenous, Continuous, Starting on Sat05/24/24 at 1645, Initial IV Rate: 2 milliunits/min Titration Directions: Increase infusion rate every 30 min by 2 milliunits/min per Oxytocin Administration guideline and algorithm. Titrate to maintain adequate contraction pattern with labor progress. Titration dosing schedule: 60 mU/ mL at 1 mL/hr = 60 mU/60 min = 1 mU/min MAX DOSE Rate = 30 milliunits/min , Titration Goal: Titrate, Target Parameter: Checklist criteria and clinical situation, Initial dose: 2 milliunits/min, Titration Dose: 2 milliunits/min, Titration Frequency: Every 30 minutes 0000 (Rate/Dose Verify - Provider: Minnie Prieto RN)0030 (Rate/Dose Change - Provider: Minnie Prieto RN)0100 (Rate/Dose Verify - Provider: Minnie Prieto RN)0130 (Rate/Dose Verify - Provider: Minnie Prieto RN)0200 (Rate/Dose Verify - Provider: Minnie Prieto RN)0230 (Rate/Dose Change - Provider: Minnie Prieto RN)0330 (Rate/Dose Change - Provider: Minnie Prieto RN)0430 (Rate/Dose Verify - Provider: Minnie Prieto RN)0500 (Rate/Dose Verify - Provider: Minnie Prieto RN)0530 (Rate/Dose Verify - Provider: Minnie Prieto RN)0630 (Rate/Dose Verify - Provider: Minnie Prieto RN)0653 (Rate/Dose Verify - Provider: Minnie Prieto RN)0930 (Stopped - Provider: Fina Clark RN) PRN Medication Order 05/25/2024 05/26/2024 05/27/2024 adenosine (Adenocard) injection 12 mg 12 mg, intravenous, Once as needed, PRN SVT if 6mg dose does not break in 2 minutes, Starting on Sat05/25/24 at 1349, For 1 dose, Rapid IV bolus over 1-2 seconds at a peripheral IV site as close as possible to trunk. Follow with a rapid 20 mL normal saline IV flush. DO NOT ADMINISTER UNLESS DIRECTLY INSTRUCTED TO BY PROVIDER adenosine (Adenocard) injection 6 mg 6 mg, intravenous, Once as needed, SVT, Starting on Sat05/25/24 at 1350, For 1 dose, Rapid IV bolus over 1-2 seconds at a peripheral IV site as close as possible to trunk. Follow with a rapid 20 mL normal saline IV flush. DO NOT ADMINISTER UNLESS DIRECTLY INSTRUCTED TO BY PROVIDER benzocaine-menthoL (Dermoplast) topical spray 1 Application 1 Application, Topical, 4 times daily PRN, irritation, Discomfort, Starting on Sat05/25/24 at 0928, , Apply to perianal area. Patient educated on proper use. Hold can 6-12 inches away from affected area while applying. bisacodyl (Dulcolax) suppository 10 mg 10 mg, rectal, Daily PRN, constipation, first line, Severe, Starting on Sat05/25/24 at 0928, carboprost (Hemabate) injection 250 mcg 250 mcg, intramuscular, Once as needed, bleeding in non-asthmatic patient, Starting on 05/24/24 at 1253, For 1 dose, Consult provider prior to administration carboprost (Hemabate) injection 250 mcg 250 mcg, intramuscular, Once as needed, bleeding in non-asthmatic patient, Starting on Sat05/25/24 at 0928, For 1 dose, , Consult provider prior to administration diphenhydrAMINE (BENADryl) capsule 25 mg(Linked Group 2) 25 mg, oral, Every 6 hours PRN, itching, Starting on Sat05/25/24 at 0928, 2242 (Given - Provider: Cinthya Whiting RN) diphenhydrAMINE (BENADryl) injection 25 mg(Linked Group 2) 25 mg, intravenous, Administer over 2 Minutes, Every 6 hours PRN, itching, Starting on Sat05/25/24 at 0928, , If unable to tolerate po 2242 (See Alternative - Provider: Cinthya Whiting RN) hydrALAZINE (Apresoline) injection 5 mg 5 mg, intravenous, Administer over 2 Minutes, Once as needed, Systolic greater than or equal to 160 OR Diastolic greater than or equal to 110, Starting on 05/24/24 at 1253, For 1 dose, Consult provider prior to administration. Push over more than 2 minutes. Systolic greater than or equal to 160 OR Diastolic greater than or equal to 110. Repeat blood pressure in 20 minutes. Contraindication: coronary artery disease (CAD); Caution in suspected CAD hydrALAZINE (Apresoline) injection 5 mg 5 mg, intravenous, Once as needed, Acute onset, severe HTN without known, suspected CAD. SBP greater than or equal to 160 OR DBP greater than or equal to 110., Starting on Sat05/25/24 at 0928, For 1 dose, , Consult provider prior to administration. Push over more than 2 minutes. Contraindications: coronary artery disease (CAD); Caution in suspected CAD. labetaloL (Normodyne,Trandate) injection 20 mg 20 mg, intravenous, Administer over 2 Minutes, Once as needed, Systolic greater than or equal to 160 OR Diastolic greater than or equal to 110, Starting on Sat05/24/24 at 1253, For 1 dose, Consult provider prior to administration. Push over more than 2 minutes. Systolic greater than or equal to 160 OR Diastolic greater than or equal to 110. Repeat blood pressure in 10 minutes. Contraindications: active asthma, heart disease, heart failure, maternal bradycardia < 60. labetaloL (Normodyne,Trandate) injection 20 mg 20 mg, intravenous, Once as needed, Acute onset, severe HTN without active asthma, bradycardia < 60. SBP greater than or equal to 160 OR DBP greater than or equal to 110., Starting on Sat05/25/24 at 0928, For 1 dose, , Consult provider prior to administration. Push over more than 2 minutes. Contraindications: active asthma, heart disease, heart failure, maternal bradycardia < 60. lanolin (Lansinoh) 100 % cream 1 Application 1 Application, Topical, Every 24 hours PRN, dry skin, Starting on Sat05/25/24 at 0928, , Apply to nipple after and PRN. Patient educated on proper use. lidocaine (Xylocaine) 10 mg/mL (1 %) injection 30 mL 30 mL, subcutaneous, Once as needed, Perineal Repair, Starting on Sat05/24/24 at 1253, For 1 dose lidocaine 4 % patch 1 patch 1 patch, transdermal, Administer over 12 Hours, Every 24 hours PRN, at incision site, Starting on Sat05/25/24 at 0928, , On for 12 hours then remove for 12 hours loperamide (Imodium) capsule 4 mg 4 mg, oral, Every 2 hour PRN, diarrhea, If Carboprost given or loose stools, Starting on Sat05/24/24 at 1253, For 4 doses, Max dose of 16mg / 24 hours. loperamide (Imodium) capsule 4 mg 4 mg, oral, Every 2 hour PRN, diarrhea, If Carboprost given or loose stools, Starting on Sat05/25/24 at 0928, For 4 doses, , Max dose of 16mg / 24 hours. magnesium hydroxide (Milk of Magnesia) 400 mg/5 mL suspension 10 mL 10 mL, oral, Every 24 hours PRN, constipation, second line, Starting on 05/25/24 at 0928, , Follow administration with 8 ounces of water. measles, mumps and rubella (MMR) 1,000-12,500 TCID50/0.5 mL vaccine 0.5 mL (COMPLETED) 0.5 mL, subcutaneous, Once as needed, immunization, Starting on Sat05/25/24 at 0928, For 1 dose, , Administer if patient screen is non-immune or equivocal Vaccine is a vial of powder. Reconstitute with the available diluent for this vaccine. Barcode scan vaccine vial for Vaccine Record, Indications: [id number] vaccination 1713 (Given - Provider: Dilma Marino RN) methylergonovine (Methergine) injection 0.2 mg 0.2 mg, intramuscular, Once as needed, PPH in pts w/o HTN or receiving ART for HIV mgmt, Starting on 05/24/24 at 1253, For 1 dose, Consult provider prior to administration methylergonovine (Methergine) injection 0.2 mg 0.2 mg, intramuscular, Once as needed, PPH in pts w/o HTN or receiving ART for HIV mgmt, Starting on Sat05/25/24 at 0928, For 1 dose, , Consult provider prior to administration miSOPROStoL (Cytotec) tablet 800 mcg 800 mcg, rectal, Once as needed, bleeding, Starting on 05/24/24 at 1253, For 1 dose, Consult provider prior to administration miSOPROStoL (Cytotec) tablet 800 mcg 800 mcg, rectal, Once as needed, bleeding, Starting on 05/25/24 at 0928, For 1 dose, , Consult provider prior to administration NIFEdipine (Procardia) capsule 10 mg 10 mg, oral, Once as needed, Systolic greater than or equal to 160 OR Diastolic greater than or equal to 110, Starting on 05/24/24 at 1253, For 1 dose, Consult provider prior to administration. NIFEdipine (Procardia) capsule 10 mg 10 mg, oral, Once as needed, Acute onset, severe HTN without IV access/ oral preferred. SBP greater than or equal to 160 OR DBP greater than or equal to 110., Starting on Sat05/25/24 at 0928, For 1 dose, , Consult provider prior to administration. Capsules administered orally and swallowed whole; Do not puncture or crush; Do not administer sublingually. ondansetron (Zofran) injection 4 mg(Linked Group 3) 4 mg, intravenous, Every 6 hours PRN, nausea/vomiting, first line, Starting on Sat05/24/24 at 1253, Give IV if patient is unable to take orally. When administering via IV Push, administer over 3-5 minutes. ondansetron (Zofran) injection 4 mg(Linked Group 4) 4 mg, intravenous, Every 6 hours PRN, nausea/vomiting, first line, Starting on Sat05/25/24 at 0928, , Give IV if patient is unable to take orally. When administering via IV Push, administer over 3-5 minutes. ondansetron (Zofran) tablet 4 mg(Linked Group 3) 4 mg, oral, Every 6 hours PRN, nausea/vomiting, first line, Starting on Sat05/24/24 at 1253, Use oral route first, if possible. ondansetron (Zofran) tablet 4 mg(Linked Group 4) 4 mg, oral, Every 6 hours PRN, nausea/vomiting, first line, Starting on Sat05/25/24 at 0928, oxytocin (Pitocin) bolus from bag 600 sen-units/min (600 mL/hr), intravenous, Administer over 30 Minutes, Once as needed, management of 3rd stage of labor, Starting on Sat05/24/24 at 1253, For 1 dose, 600 milliunits/min x 30 min, then 60 milliunits/min for the remainder of the bag. Begin infusion at delivery of (s). oxytocin (Pitocin) bolus from bag (COMPLETED) 600 sen-units/min (600 mL/hr), intravenous, Administer over 30 Minutes, Once as needed, hemorrhage, Starting on Sat05/24/24 at 1253, For 1 dose, Post-Delivery, Conditional order. 600 milliunits/min x 30 min, then 60 milliunits/min for the remainder of the bag. Consult Provider prior to administration. 0654 (Bolus from Bag - Provider: Minnie Prieto RN) oxytocin (Pitocin) bolus from bag 600 sen-units/min (600 mL/hr), intravenous, Administer over 30 Minutes, Once as needed, management of 3rd stage of labor, Starting on Sat05/25/24 at 0928, For 1 dose, , 600 milliunits/min x 30 min, then 60 milliunits/min for the remainder of the bag. Begin infusion at delivery of (s). oxytocin (Pitocin) bolus from bag 600 sen-units/min (600 mL/hr), intravenous, Administer over 30 Minutes, Once as needed, hemorrhage, Starting on Sat05/25/24 at 0928, For 1 dose, , Conditional order. 600 milliunits/min x 30 min, then 60 milliunits/min for the remainder of the bag. Consult Provider prior to administration. oxytocin (Pitocin) infusion in sodium chloride 0.9% 30 units/500 mL (COMPLETED) 60 sen-units/min (60 mL/hr), intravenous, Once as needed, management of 3rd stage of labor, Starting on Sat05/24/24 at 1253, For 1 dose, Post-Delivery, Titration Goal: Do Not Titrate 0724 (New Bag - Provider: Minnie Prieto RN) oxytocin (Pitocin) infusion in sodium chloride 0.9% 30 units/500 mL 60 sen-units/min (60 mL/hr), intravenous, Once as needed, management of 3rd stage of labor, Starting on Sat05/25/24 at 0928, For 1 dose, , Titration Goal: Do Not Titrate oxytocin (Pitocin) injection 10 Units 10 Units, intramuscular, Once as needed, management-3rd Stage of labor if not given IV, Starting on Sat05/25/24 at 0928, For 1 dose, , Consult Provider prior to administration oxytocin (Pitocin) injection 10 Units 10 Units, intramuscular, Once as needed, bleeding (if no IV access), Starting on Sat05/25/24 at 0928, For 1 dose, , Conditional order, consult Provider prior to administration polyethylene glycol (Glycolax, Miralax) packet 17 g 17 g, oral, 2 times daily PRN, constipation, first line, Starting on Sat05/25/24 at 0928, psyllium (Metamucil) 3.4 gram packet 1 packet 1 packet, oral, Daily PRN, any constipation, Starting on Sat05/25/24 at 0928, , Give with at least 8 ounces of water or juice simethicone (Mylicon) chewable tablet 80 mg 80 mg, oral, 4 times daily PRN, flatulence, Starting on Sat05/25/24 at 0928, 2143 (Given - Provider: Kendall Trinidad RN) tranexamic acid (Cyklokapron) injection 1,000 mg 1,000 mg, intravenous, Once as needed, bleeding in all patients, Starting on Sat05/25/24 at 0928, For 72 hours, , Consult provider prior to administration, Tranexamic Acid Indication: Hemorrhage: 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 Patient educated on proper use. Linked Groups Order Group 1: penicillin G potassium 5 Million Units in sodium chloride 0.9% IV 100 mL (COMPLETED) 5 Million Units, intravenous, at 200 mL/hr, Administer over 30 Minutes, Once, On Sat05/24/24 at 1330, For 1 dose, Pre-Delivery, Mini-Bag Plus/ADD-Brenton bag, Suspected Indication (Select all that apply): Medical Prophylaxis, Indications: Medical Prophylaxis Followed by penicillin G potassium 3 Million Units in dextrose IV 50 mL (CANCELED)Jump to med 3 Million Units, intravenous, at 100 mL/hr, Administer over 30 Minutes, Every 4 hours, First dose on Sat05/24/24 at 1730, Pre-Delivery, Until delivery; to follow loading dose premix bag, Suspected Indication (Select all that apply): Medical Prophylaxis, Indications: Medical Prophylaxis Group 2: diphenhydrAMINE (BENADryl) injection 25 mgJump to med 25 mg, intravenous, Administer over 2 Minutes, Every 6 hours PRN, itching, Starting on Sat05/25/24 at 0928, , If unable to tolerate po Or diphenhydrAMINE (BENADryl) capsule 25 mgJump to med 25 mg, oral, Every 6 hours PRN, itching, Starting on Sat05/25/24 at 0928, Group 3: ondansetron (Zofran) tablet 4 mgJump to med 4 mg, oral, Every 6 hours PRN, nausea/vomiting, first line, Starting on 05/24/24 at 1253, Use oral route first, if possible. Or ondansetron (Zofran) injection 4 mgJump to med 4 mg, intravenous, Every 6 hours PRN, nausea/vomiting, first line, Starting on 05/24/24 at 1253, Give IV if patient is unable to take orally. When administering via IV Push, administer over 3-5 minutes. Group 4: ondansetron (Zofran) tablet 4 mgJump to med 4 mg, oral, Every 6 hours PRN, nausea/vomiting, first line, Starting on 05/25/24 at 0928, Or ondansetron (Zofran) injection 4 mgJump to med 4 mg, intravenous, Every 6 hours PRN, nausea/vomiting, first line, Starting on 05/25/24 at 0928, , Give IV if patient is unable to take orally. When administering via IV Push, administer over 3-5 minutes. Scheduled Medication Order 04/18/2024 04/19/2024 04/20/2024 acetaminophen (Tylenol) tablet 650 mg (COMPLETED) 650 mg, oral, Once, On 04/18/24 at 2000, For 1 dose, If ordered PRN for pain, nurse is permitted to administer this medication for higher pain scores based on patient preference? Yes 2002 (Given - Provider: Tyron Ellison RN) acetaminophen (Tylenol) tablet 975 mg (COMPLETED) 975 mg, oral, Once, On 04/18/24 at 0745, For 1 dose, If ordered PRN for pain, nurse is permitted to administer this medication for higher pain scores based on patient preference? Yes 0845 (Given - Provider: Selma Sinclair RN) cyclobenzaprine (Flexeril) tablet 10 mg (COMPLETED) 10 mg, oral, Once, On 04/18/24 at 0130, For 1 dose 0118 (Given - Provider: Tyron Ellison RN) cyclobenzaprine (Flexeril) tablet 10 mg (COMPLETED) 10 mg, oral, Once, On 04/18/24 at 1415, For 1 dose 1416 (Given - Provider: Selma Sinclair RN) cyclobenzaprine (Flexeril) tablet 10 mg (COMPLETED) 10 mg, oral, Once, On 04/18/24 at 2000, For 1 dose 2001 (Given - Provider: Tyron Ellison RN) diphenhydrAMINE (BENADryl) capsule 25 mg (COMPLETED) 25 mg, oral, Once, On 04/18/24 at 0130, For 1 dose 0118 (Given - Provider: Tyron Ellison RN) diphenhydrAMINE (BENADryl) capsule 25 mg (COMPLETED) 25 mg, oral, Once, On 04/18/24 at 0745, For 1 dose 0846 (Given - Provider: Selma Sinclair RN) diphenhydrAMINE (BENADryl) capsule 25 mg (COMPLETED) 25 mg, oral, Once, On 04/18/24 at 2000, For 1 dose 2006 (Given - Provider: Tyron Ellison RN) iron sucrose (Venofer) 300 mg in sodium chloride 0.9% 282 mL IV (COMPLETED) 300 mg, intravenous, at 188 mL/hr, Administer over 90 Minutes, Once, On 04/19/24 at 1530, For 1 dose 1638 (New Bag - Provider: Selma Sinclair RN)1824 (Stopped - Provider: Selma Sinclair RN) lamoTRIgine (LaMICtal) tablet 300 mg 300 mg, oral, Nightly, First dose (after last modification) on 04/18/24 at 2100 2001 (Given - Provider: Tyron Ellison RN) 2053 (Given - Provider: Nancy Best RN) 2099 (Due) levothyroxine (Synthroid, Levoxyl) tablet 137 mcg (COMPLETED) 137 mcg, oral, Nightly, First dose on 04/18/24 at 2100, For 1 dose 2004 (Given - Provider: Tyron Ellison RN) levothyroxine (Synthroid, Levoxyl) tablet 137 mcg 137 mcg, oral, Nightly, First dose on Sat04/20/24 at 2100, For 1 dose 2100 (Due) levothyroxine (Synthroid, Levoxyl) tablet 137 mcg 137 mcg, oral, Nightly, First dose on Sat04/21/24 at 2100, For 1 dose levothyroxine (Synthroid, Levoxyl) tablet 274 mcg (COMPLETED) 274 mcg, oral, Nightly, First dose on 04/19/24 at 2100, For 1 dose 2053 (Given - Provider: Nancy Best RN) magnesium sulfate 4 g in sterile water for injection 100 mL (COMPLETED) 4 g, intravenous, at 25 mL/hr, Administer over 4 Hours, Once, On 04/18/24 at 1415, For 1 dose 1416 (New Bag - Provider: Selma Sinclair RN)1720 (Stopped - Provider: Selma Sinclair RN) metFORMIN XR (Glucophage-XR) 24 hr tablet 1,000 mg 1,000 mg, oral, Daily with evening meal, First dose on 04/18/24 at 1700, Do not crush, chew, or split. 1629 (Given - Provider: Selma Sinclair RN) 1638 (Given - Provider: Selma Sinclair RN) 1700 (Due) metoclopramide (Reglan) tablet 10 mg (COMPLETED) 10 mg, oral, Once, On 04/18/24 at 0130, For 1 dose 0118 (Given - Provider: Tyron Ellison RN) metoclopramide (Reglan) tablet 10 mg (COMPLETED) 10 mg, oral, Once, On 04/18/24 at 0745, For 1 dose 0845 (Given - Provider: Selma Sinclair RN) metoclopramide (Reglan) tablet 10 mg (COMPLETED) 10 mg, oral, Once, On 04/18/24 at 2000, For 1 dose 2001 (Given - Provider: Tyron Ellison RN) metoprolol succinate XL (Toprol-XL) 24 hr tablet 25 mg (CANCELED) 25 mg, oral, Every 24 hours, First dose (after last modification) on 04/18/24 at 0600, Do not crush or chew. 0620 (Given - Provider: Sofi Antonio RN) metoprolol tartrate (Lopressor) tablet 25 mg 25 mg, oral, Every 12 hours, First dose (after last modification) on 04/19/24 at 0700 0641 (Given - Provider: David Lloyd RN)1825 (Given - Provider: Selma Sinclair RN) 0806 (Given - Provider: Dede Nick RN)2100 (Due - Provider: Misty Leblanc, PharmD) perflutren lipid microspheres (Definity) injection 0.5-10 mL of dilution 0.5-10 mL of dilution, intravenous, Once in imaging, Starting on 04/18/24 at 0746, For 1 dose, CV Medications, Contrast - for use by imaging provider only. Prior to administration, Definity product must be activated. First, bring vial to room temperature. Then, shake vial for 45 seconds. Do not use if the 45 second activation cycle has not been completed. Following activation, the product will appear as a milky white suspension and may be used immediately. If not used within 5 minutes of activation, re-suspend by inverting and shaking the vial for 10 seconds. Discard unused product. Administration: Dilute 1.3 mL of activated DEFINITY with 8.7 mL of normal saline in a 10 mL syringe. Inject 0.5 mL of diluted DEFINITY when notified the images/film are unclear to enhance view of Left Ventricular borders. Repeat 0.5 mL of DEFINITY until clear images are obtained, not to exceed 10 mLs. Once images are obtained or limit of medication is reached, flush line with 10 mL of Normal Saline. polyethylene glycol (Glycolax, Miralax) packet 17 g 17 g, oral, Daily, First dose on 04/18/24 at 0900, Bowel Regimen - for prevention of constipation. 0845 (Given - Provider: Selma Sinclair RN) 0823 (Given - Provider: Selma Sinclair RN) 0807 (Not Given - Provider: Dede Nick RN - Reason: Patient/family refused) potassium chloride CR (Klor-Con M20) ER tablet 20 mEq (COMPLETED) 20 mEq, oral, Once, On 04/18/24 at 1415, For 1 dose, Best given with food and plenty of water to minimize gastric irritation. Do not crush or chew. 1416 (Given - Provider: Selma Sinclair RN) vitamin (iron-folic) tablet 1 tablet 1 tablet, oral, Daily, First dose on 04/18/24 at 0900, provides 0.8 mg folic acid 0846 (Given - Provider: Selma Sinclair RN) 0824 (Given - Provider: Selma Sinclair RN) 0807 (Given - Provider: Dede Nick RN) Continuous Medication Order 04/18/2024 04/19/2024 04/20/2024 lactated Ringer's infusion 125 mL/hr, intravenous, Continuous, Starting on 04/18/24 at 0015 0118 (New Bag - Provider: Tyron Ellison RN)0858 (New Bag - Provider: Selma Sinclair, RN) 0004 (New Bag - Provider: Tyron Ellison RN)0810 (New Bag - Provider: Zina Mendoza, JANNET)1945 (Handoff - Provider: Nancy Best, JANNET)2330 (New Bag - Provider: Nancy Best, RN) 0714 (New Bag - Provider: Dede Nick, RN)1045 (Stopped - Provider: Dede Nick, RN) PRN Medication Order 04/18/2024 04/19/2024 04/20/2024 alum-mag hydroxide-simeth (Mylanta) 200-200-20 mg/5 mL oral suspension 10 mL 10 mL, oral, 4 times daily PRN, indigestion, heartburn, Starting on 04/19/24 at 2107 2117 (Given - Provider: Nancy Best, RN) benzonatate (Tessalon) capsule 100 mg 100 mg, oral, 3 times daily PRN, cough, Starting on 04/19/24 at 2126, Do not crush or chew. 2210 (Not Given - Provider: Nancy Best, JANNET - Reason: Patient/family refused) bisacodyl (Dulcolax) suppository 10 mg 10 mg, rectal, Daily PRN, constipation, first line, Severe, Starting on Sat04/17/24 at 2349 diphenhydrAMINE (BENADryl) capsule 25 mg 25 mg, oral, Every 6 hours PRN, sleep, Starting on 04/19/24 at 2115 2330 (Given - Provider: Nancy Best, JANNET) hydrALAZINE (Apresoline) injection 5 mg 5 mg, intravenous, Administer over 2 Minutes, Once as needed, Systolic greater than or equal to 160 OR Diastolic greater than or equal to 110, Starting on Sat04/17/24 at 2349, For 1 dose, Consult provider prior to administration. Push over more than 2 minutes. Systolic greater than or equal to 160 OR Diastolic greater than or equal to 110. Repeat blood pressure in 20 minutes. Contraindication: coronary artery disease (CAD); Caution in suspected CAD labetaloL (Normodyne,Trandate) injection 20 mg 20 mg, intravenous, Administer over 2 Minutes, Once as needed, Systolic greater than or equal to 160 OR Diastolic greater than or equal to 110, Starting on Sat04/17/24 at 2349, For 1 dose, Consult provider prior to administration. Push over more than 2 minutes. Systolic greater than or equal to 160 OR Diastolic greater than or equal to 110. Repeat blood pressure in 10 minutes. Contraindications: active asthma, heart disease, heart failure, maternal bradycardia < 60. lidocaine (Xylocaine) 10 mg/mL (1 %) injection 0.5 mL 0.5 mL, subcutaneous, Once as needed, Prior to IV insertion, Starting on Sat04/17/24 at 2349, For 1 dose magnesium hydroxide (Milk of Magnesia) 400 mg/5 mL suspension 10 mL 10 mL, oral, Every 24 hours PRN, constipation, second line, Starting on Sat04/17/24 at 2349, Follow administration with 8 ounces of water. metoclopramide (Reglan) injection 10 mg(Linked Group 1) 10 mg, intravenous, Every 6 hours PRN, nausea/vomiting, second line, Starting on Sat04/17/24 at 2349, Give IV if patient is unable to take orally. metoclopramide (Reglan) tablet 10 mg(Linked Group 1) 10 mg, oral, Every 6 hours PRN, nausea/vomiting, second line, Starting on Sat04/17/24 at 2349, Use oral route first, if possible. NIFEdipine (Procardia) capsule 10 mg 10 mg, oral, Once as needed, Systolic greater than or equal to 160 OR Diastolic greater than or equal to 110, Starting on Sat04/17/24 at 2349, For 1 dose, Consult provider prior to administration. ondansetron (Zofran) injection 4 mg(Linked Group 2) 4 mg, intravenous, Every 6 hours PRN, nausea/vomiting, first line, Starting on Sat04/17/24 at 2349, Give IV if patient is unable to take orally. When administering via IV Push, administer over 3-5 minutes. ondansetron (Zofran) tablet 4 mg(Linked Group 2) 4 mg, oral, Every 6 hours PRN, nausea/vomiting, first line, Starting on Sat04/17/24 at 2349, Use oral route first, if possible. polyethylene glycol (Glycolax, Miralax) packet 17 g 17 g, oral, 2 times daily PRN, constipation, first line, Starting on Sat04/17/24 at 2349 psyllium (Metamucil) 3.4 gram packet 1 packet 1 packet, oral, Daily PRN, any constipation, Starting on Sat04/17/24 at 2349, Give with at least 8 ounces of water or juice 0846 (Given - Provider: Selma Sinclair, JANNET) simethicone (Mylicon) chewable tablet 80 mg 80 mg, oral, 4 times daily PRN, flatulence, Starting on Sat04/17/24 at 2349 1400 (Given - Provider: Selma Sinclair, JANNET)2053 (Given - Provider: Nancy Best RN) witch bailey (Tucks) pads 1 each 1 each, Topical, 4 times daily PRN, hemorrhoids, Starting on Sat04/19/24 at 1115, Apply to: affected area Linked Groups Order Group 1: metoclopramide (Reglan) tablet 10 mgJump to med 10 mg, oral, Every 6 hours PRN, nausea/vomiting, second line, Starting on Sat04/17/24 at 2349, Use oral route first, if possible. Or metoclopramide (Reglan) injection 10 mgJump to med 10 mg, intravenous, Every 6 hours PRN, nausea/vomiting, second line, Starting on Sat04/17/24 at 2349, Give IV if patient is unable to take orally. Group 2: ondansetron (Zofran) tablet 4 mgJump to med 4 mg, oral, Every 6 hours PRN, nausea/vomiting, first line, Starting on Sat04/17/24 at 2349, Use oral route first, if possible. Or ondansetron (Zofran) injection 4 mgJump to med 4 mg, intravenous, Every 6 hours PRN, nausea/vomiting, first line, Starting on Sat04/17/24 at 2349, Give IV if patient is unable to take orally. When administering via IV Push, administer over 3-5 minutes. Goals (unrecognized section and content) Goals may be documented in a n alternate section FOR RECORDS PERTAINING TO PATIENTS WHO ARE OR HAVE BEEN ENROLLED IN A CHEMICAL DEPENDENCY/SUBSTANCEABUSE PROGRAM, SOME INFORMATION MAY BE OMITTED. This clinical summary was aggregated from multiple sources. Caution should be exercised in using it in the provision of clinical care. This summary normalizes information from multiple sources, and as a consequence, information in this document may materially change the coding, format and clinical context of patient data. In addition, data may be omitted in some cases. CLINICAL DECISIONS SHOULD BE BASED ON THE PRIMARY CLINICAL RECORDS. [facility]. provides no warranty or guarantee of the accuracy or completeness of information in this document.
== END 2024-09-09 19:53 | disposition home or self-care (01) ==
LOC: SLEEP 19:52
PROVIDERS: PCP Nurse Practitioner; Visit Provider Nurse Practitioner
DX: G47.33 Obstructive sleep apnea (adult) (pediatric) (principal)
CPT/HCPCS: 95811